=== PATIENT | male | born 1950 | race Caucasian/White ===

== ENCOUNTER 2023-06-16 11:27 | Emergency (ER) | payer BC, SELFPAY ==
--- NOTE | ~2023-06-16 | CT_ITS ---
EXAMINATION: CTA chest PE protocol DATE: 06/16/2023 12:31 CDT INDICATION: Chest and rib pain. TECHNIQUE: Computed tomographic angiography (CTA) of the chest was performed with 100 mL Omnipaque-35 0 intravenous contrast. The dose-length product was 846.45 mGy-cm. Maximum intensity projection 3D-re constructions of the aorta and other arteries were constructed by the technologist on a separate work station. Automated exposure control and iterative reconstruction technique were employed. COMPARISON: None. FINDINGS: Study is technically adequate without evidence for pulmonary embolism. Cardiomegaly. No sig nificant pleural or pericardial effusion. Borderline size mediastinal lymph nodes, likely reactive. T here are liver cysts. There is bilateral renal cysts. There is bilateral lower lobe and lingular airs pace consolidation, consistent with pneumonia. No pneumothorax. There are multiple compression fractures of the thoracic spine, likely chronic. IMPRESSION: 1. Bibasilar airspace consolidation, consistent with pneumonia. Reviewed, dictated and finalized at location A.
--- NOTE | ~2023-06-16 | XR_ITS ---
XR chest 2V 06/16/2023 12:26 Indication: Left-sided chest pain Procedure: 2 view chest Comparison: CT dated 06/16/2023 Findings: There is bilateral lower lobe airspace disease, compatible with pneumonia. Shallow inspirat ion. No significant effusion. No pneumothorax. No acute osseous abnormality. Impression: 1: Bilateral lower lobe airspace disease, consistent with pneumonia. Reviewed, dictated and finalized at location A. Impression: 1: Bilateral lower lobe airspace disease, consistent with pneumonia.
[2023-06-16 11:28] VITALS: BP 105/71; PULSE 84; RESP 18; TEMP 36.8; O2SAT 96
[2023-06-16 11:34] VITALS: O2SAT 94
--- NOTE | 2023-06-16 11:39 | ECG_ITS ---
Measurements Intervals [place] Rate: 93 P: -9 [place]: 137 QRS: 77 QRSD: 96 T: 59 QT: 341 QTc: 424 Interpretive Statements SINUS RHYTHM DELAYED PRECORDIAL R/S TRANSITION BASELINE ARTIFACT- I, II, III, AVR, V4-V6 BORDERLINE ECG NO PREVIOUS ECG AVAILABLE FOR COMPARISON Electronically Signed On 06-16-2023 12:22:44 CDT by Sha Suarez D.O.
[2023-06-16 11:53] LABS: Basophils Absolute Auto 0.1 K/mm3 (0.0-0.1); Basophils Percent Auto 0.7 % (0.2-1.2); Eosinophils Absolute Auto 0.1 K/mm3 (0-0.3); Eosinophils Percent Auto 0.9 % (0-4.4); Hemoglobin 16.8 g/dL (14.0-18.0); Immature Granulocyte Absolute 0.02 K/mm3 (0.00-0.031); Immature Granulocyte Percent A 0.2 % (0-0.5); Lymphocytes Absolute Auto 2.21 K/mm3 (0.9-3.2); Lymphocytes Percent Auto 21.4 % (18.3-44.2); Mean Corpuscular HGB Conc 34.3 g/dl (32-36); Mean Corpuscular Hemoglobin 29.6 pg (26-34); Mean Corpuscular Volume 86.4 fl (80-100); Mean Platelet Volume 10.2 fl (7.4-10.4); Monocytes Absolute Auto 0.9 K/mm3 (0.1-0.6); Monocytes Percent Auto 8.8 % (2.6-8.5); Platelet Count Result 253 k/mm3 (150-375); Red Blood Count 5.67 M/mm3 (4.6-6.20); Red Cell Distribution Width 11.9 % (11.5-14.5); White Blood Count 10.3 K/mm3 (4.5-10.0)
--- NOTE | 2023-06-16 11:53 | ED.CHESTPAIN ---
HPI - Chest Pain General Chief Complaint: Chest Pain Stated Complaint: chest pain Time Seen by Provider: 06/16/23 11:29 History of Present Illness HPI narrative: 73-year-old male with history of diabetes, COPD, CVA presents to the emergency department for left-sided anterior lateral chest pain and shortness of breath That started yesterday. Patient notes that he follow-up of a step stool 5 days ago and landed on his left side. He was evaluated at [place] emergency department, had x-rays of his left wrist performed and was diagnosed with a wrist fracture. He was placed in a splint. He denied other injury or pain at that time. States the following day he began developing pain in his left chest that has progressively worsened. Now it is associated with dyspnea, worse with palpation and deep inspiration. He noted that he had some bruising to the chest wall after the fall. He denies radiating symptoms, cough or congestion, fever, lower extremity edema. patient received nitro and aspirin in the EMS EN route. He was started on O2 for hypoxia, however he is satting 90-97% on room air in no respiratory distress upon arrival. Patient is also reporting an area of the OCL splint that is poking into his elbow and is requesting we replaced the OCL. Related Data Home Medications Medication Instructions Recorded Confirmed Valrpoic Acid 1,500 mg PO DAILY 03/13/23 aspirin 81 mg tablet,delayed 81 mg PO DAILY 03/13/23 release atorvastatin 80 mg tablet 80 mg PO DAILY 03/13/23 carbamazepine 300 mg 1,200 mg PO DAILY 03/13/23 capsule,extended release [id number] icosapent ethyl 1 gram capsule 2 g PO BID 03/13/23 (Vascepa) loratadine 10 mg tablet 10 mg PO DAILY 03/13/23 metformin 500 mg tablet 500 mg PO DAILY 03/13/23 dmypidkz-cjcslgtl-nuhuc acid 400 tablet PO 03/13/23 mcg-vit K 20 mcg-lycop 300 mcg tablet sertraline 50 mg tablet 50 mg PO DAILY 03/13/23 Allergies Allergy/AdvReac Type Severity Reaction Status Date / Time No Known Allergies Allergy Unverified 03/13/23 10:25 Review of Systems Review of Systems: CONSTITUTIONAL: Denies fever, chills, or sweats. EYES: Denies visual changes, redness, or discharge. ENT: Denies rhinorrhea, congestion, sore throat, or otalgia. CARDIOVASCULAR: See HPI RESPIRATORY: see HPI GASTROINTESTINAL: Denies abdominal pain, nausea, vomiting, or diarrhea. GENITOURINARY: Denies dysuria or hematuria. SKIN: Denies rash or itching. MUSCULOSKELETAL: Denies back pain, joint pain, or myalgia. NEUROLOGIC: Denies headache, numbness, or weakness. PSYCHIATRIC: Denies anxiety or depression. [facility] Past Medical History Medical History Arthritis COPD (chronic obstructive pulmonary disease) Diabetes Migraine Seizures Stroke Surgical History Surgical History History of hernia repair Status post surgical removal of malignant neoplasm of skin Family History Family History Father Cancer Alcoholism Mother Diabetes mellitus Sibling Alcoholism Cancer Diabetes mellitus Social History Social History Social History: Caffeine- coffee Smoking status: Former smoker Smoking end date: 03/25/16 Alcohol intake: never Substance use: never Substance use type: does not use Lack of Transportation: No Lack of Food: Never True Current Housing: I Have Housing Concerned About Future Housing: No Difficulty Paying Gas/Electric Bills: No Difficulty Paying for Meds: No Currently Unemployed: No Education: High School Diploma/GED Difficulty w/ Childcare or Family Care: No Living arrangements: alone Occupation/Education: retired Gender identity (if verbalized by the patient): Male Agree to blood products: Yes Exam Narrat
[2023-06-16 12:04] LABS: Prothrombin Time 13.6 Seconds (11.1-14.7)
[2023-06-16 12:05] LABS: Partial Thromboplastin Time 36.4 Seconds (22.3-36.8)
[2023-06-16 12:06] LABS: Alanine Aminotransferase 21 U/L (6-50); Albumin Level 4.3 g/dL (3.5-5.1); Alkaline Phosphatase 100 U/L (38-126); Anion Gap 8 mmol/L (8-16); Aspartate Amino Transferase 24 U/L (17-59); Bilirubin,Total 1.1 mg/dL (0.2-1.3); Blood Urea Nitrogen 16 mg/dL (9-20); Calcium 9.3 mg/dL (8.4-10.2); Carbon Dioxide 27 mmol/L (22-30); Chloride 102 mmol/L (98-107); Estimated CRCL calculation 70 ml/min; Estimated Glomerular Filt Rate > 60; Glucose 124 mg/dL (65-110); Lipase 97 U/L (23-300); Potassium 3.8 mmol/L (3.4-5.0); Sodium 137 mmol/L (137-145)
[2023-06-16 12:18] LABS: NT Pro B Type Natriuretic Pept 201 pg/mL (19.9-100); Troponin I < 0.012 ng/mL (0.000-0.034)
[2023-06-16 12:40] VITALS: BP 148/95; PULSE 86; RESP 16; O2SAT 95
[2023-06-16 13:27] LABS: Influenza A QL RT-PCR Negative (Negative); Influenza B QL RT-PCR Negative (Negative); RSV RNA, RT-PCR Negative (Negative); SARS-CoV-2 RNA PCR Negative (Negative)
--- NOTE | 2023-06-16 14:49 | ECG_ITS ---
Measurements Intervals [place] Rate: 89 P: -17 [place]: 146 QRS: 81 QRSD: 88 T: 70 QT: 344 QTc: 420 Interpretive Statements SINUS RHYTHM DELAYED PRECORDIAL R/S TRANSITION BASELINE ARTIFACT- I, II, III, AVR, AVL, AVF BORDERLINE ECG COMPARED TO ECG 06/16/2023 11:42:21 NO SIGNIFICANT CHANGES Electronically Signed On 06-16-2023 16:50:05 CDT by Sha Suarez D.O.
[2023-06-16 14:57] LABS: Appearance Urine Clear (Clear); Color Urine Yellow (Yellow)
[2023-06-16 14:58] LABS: Bacteria Urine None Seen /hpf; Bilirubin Urine 1+ (Negative); Blood Urine Negative (Negative); Glucose Urine UA Negative (Negative); Ketones Urine 1+ mg/dL (Negative); Leukocyte Esterase Ur Negative LEU/UL (Negative); Nitrate Urine Negative (Negative); Non Pathogenic Casts 0-2; Protein Urine 1+ mg/dL (Negative); Squamous Epithelial Cell Urine None Seen /hpf (Few); WBC Urine 0-5 /hpf (0-3)
[2023-06-16 14:59] LABS: Add Urine Microscopic? YES
[2023-06-16 15:25] LABS: Troponin I < 0.012 ng/mL (0.000-0.034)
[2023-06-16] MEDS: AMOXICILLIN/CLAVULANATE K 875-125 MG TAB 1 TABLET PO (16:06)
[2023-06-16] MEDS: AZITHROMYCIN 250 MG TABLET 500 MG PO (16:06)
[2023-06-16 16:09] VITALS: BP 136/89; PULSE 84; RESP 18; O2SAT 96
== END 2023-06-16 16:10 | disposition home or self-care (01) ==
PROVIDERS: Emergency Medicine; Emergency Provider Physician Assistant; PCP Internal Medicine
DX: J18.9 Pneumonia, unspecified organism (principal); R31.21 Asymptomatic microscopic hematuria; R07.89 Other chest pain; S62.102D Fracture of unspecified carpal bone, left wrist, subsequent encounter for fracture with routine healing; X58.XXXD Exposure to other specified factors, subsequent encounter; Z20.822 Contact with and (suspected) exposure to COVID-19; J44.9 Chronic obstructive pulmonary disease, unspecified; E11.9 Type 2 diabetes mellitus without complications; M19.90 Unspecified osteoarthritis, unspecified site; Z86.73 Personal history of transient ischemic attack (TIA), and cerebral infarction without residual deficits; Z87.891 Personal history of nicotine dependence; Z79.84 Long term (current) use of oral hypoglycemic drugs; Z79.82 Long term (current) use of aspirin; R94.31 Abnormal electrocardiogram [ECG] [EKG]
CPT/HCPCS: 29125; 36415; 71046; 71275; 80053; 81001; 83690; 83880; 84484; 85025; 85610; 85730; 87637; 93005; 99284; A9270; Q9967

== ENCOUNTER 2023-08-15 13:50 | Outpatient (CLI) | payer BC, SELFPAY ==
[2023-08-15 14:05] LABS: Basophils Absolute Auto 0.1 K/mm3 (0.0-0.1); Basophils Percent Auto 0.9 % (0.2-1.2); Eosinophils Absolute Auto 0.2 K/mm3 (0-0.3); Eosinophils Percent Auto 2.3 % (0-4.4); Hematocrit 46.8 % (42.0-52.0); Hemoglobin 15.7 g/dL (14.0-18.0); Immature Granulocyte Absolute 0.01 K/mm3 (0.00-0.031); Immature Granulocyte Percent A 0.1 % (0-0.5); Lymphocytes Absolute Auto 2.24 K/mm3 (0.9-3.2); Lymphocytes Percent Auto 32.4 % (18.3-44.2); Mean Corpuscular HGB Conc 33.5 g/dl (32-36); Mean Corpuscular Hemoglobin 29.1 pg (26-34); Mean Corpuscular Volume 86.7 fl (80-100); Monocytes Absolute Auto 0.7 K/mm3 (0.1-0.6); Monocytes Percent Auto 9.4 % (2.6-8.5); Neutrophils Absolute Auto 3.8 K/mm3 (1.3-6.7); Neutrophils Percent Auto 54.9 % (45.5-73.1); Platelet Count Result 245 k/mm3 (150-375); Red Cell Distribution Width 11.9 % (11.5-14.5); White Blood Count 6.9 K/mm3 (4.5-10.0)
[2023-08-15 17:43] LABS: Alanine Aminotransferase 22 U/L (6-50); Albumin Level 4.2 g/dL (3.5-5.1); Alkaline Phosphatase 126 U/L (38-126); Anion Gap 7 mmol/L (4-12); Aspartate Amino Transferase 22 U/L (17-59); Bilirubin,Total 0.8 mg/dL (0.2-1.3); Blood Urea Nitrogen 12 mg/dL (9-20); Carbon Dioxide 27 mmol/L (22-30); Chloride 106 mmol/L (98-107); Estimated Glomerular Filt Rate > 60; Glucose 87 mg/dL (65-110); Potassium 3.8 mmol/L (3.4-5.0); Sodium 140 mmol/L (137-145)
[2023-08-20 07:48] LABS: Erythropoietin (EPO) 15.3 mIU/mL (2.6-18.5)
== END 2023-08-15 13:51 | disposition home or self-care (01) ==
LOC: ANHLAB 13:53
PROVIDERS: Nurse Practitioner Family; PCP Internal Medicine; Visit Provider Internal Medicine Hematology & Oncology
DX: D75.1 Secondary polycythemia (principal)
CPT/HCPCS: 36415; 80053; 82668; 85025

== ENCOUNTER 2024-03-15 13:44 | Observation (INO) | payer BC, SELFPAY ==
[2024-03-15 13:49] VITALS: BP 118/59; PULSE 131; RESP 24; TEMP 37.4; O2SAT 94
[2024-03-15] MEDS: SODIUM CHLORIDE 0.9% IV 1,000 ML 999 ML IV CONT (15:40)
[2024-03-15 15:50] LABS: Basophils Absolute Auto 0.1 K/mm3 (0.0-0.1); Basophils Percent Auto 0.3 % (0.2-1.2); Eosinophils Percent Auto 0.1 % (0-4.4); Hematocrit 43.5 % (42.0-52.0); Immature Granulocyte Percent A 0.5 % (0-0.5); Lymphocytes Absolute Auto 0.84 K/mm3 (0.9-3.2); Lymphocytes Percent Auto 4.3 % (18.3-44.2); Mean Corpuscular HGB Conc 34.5 g/dl (32-36); Mean Corpuscular Hemoglobin 30.5 pg (26-34); Mean Corpuscular Volume 88.6 fl (80-100); Mean Platelet Volume 10.3 fl (7.4-10.4); Monocytes Percent Auto 10.3 % (2.6-8.5); Neutrophils Absolute Auto 16.4 K/mm3 (1.3-6.7); Neutrophils Percent Auto 84.5 % (45.5-73.1); Platelet Count Result 194 k/mm3 (150-375); Red Blood Count 4.91 M/mm3 (4.6-6.20); Red Cell Distribution Width 12.6 % (11.5-14.5); White Blood Count 19.4 K/mm3 (4.5-10.0)
[2024-03-15 16:02] LABS: Alanine Aminotransferase 19 U/L (6-50); Albumin Level 3.9 g/dL (3.5-5.1); Alkaline Phosphatase 102 U/L (38-126); Anion Gap 6 mmol/L (4-12); Aspartate Amino Transferase 21 U/L (17-59); Bilirubin,Total 2.1 mg/dL (0.2-1.3); Blood Urea Nitrogen 22 mg/dL (9-20); Calcium 9.5 mg/dL (8.4-10.2); Carbon Dioxide 26 mmol/L (22-30); Chloride 107 mmol/L (98-107); Estimated CRCL calculation 58 ml/min; Estimated Glomerular Filt Rate 60; Glucose 110 mg/dL (65-110); Potassium 3.7 mmol/L (3.4-5.0); Sodium 139 mmol/L (137-145)
[2024-03-15 16:26] LABS: Valproic Acid < 10.0 ug/mL (50-120)
[2024-03-15 16:49] LABS: Add Urine Microscopic? YES; Appearance Urine Clear (Clear); Bacteria Urine None Seen /hpf; Blood Urine 2+ (Negative); Glucose Urine UA Negative (Negative); Ketones Urine Negative (Negative); Mucus Urine Present /lpf; Need Manual Microscopic Reviewed; Non Pathogenic Casts 0-2; RBC Urine 51-100 /hpf (0-2); Specific Grav Ur 1.024 (1.001-1.035); Squamous Epithelial Cell Urine None Seen /hpf (Few); WBC Urine 21-50 /hpf (0-3)
[2024-03-15 16:53] LABS: Color Urine Orange (Yellow)
[2024-03-15 16:56] VITALS: BP 152/85; PULSE 91; RESP 14; TEMP 36.4; O2SAT 97
[2024-03-15 17:00] VITALS: BP 134/80; PULSE 92; RESP 18; O2SAT 95
[2024-03-15 17:15] VITALS: BP 133/79; PULSE 93; RESP 18; O2SAT 99
--- NOTE | 2024-03-15 17:38 | ED_ITS ---
HPI - Male Genitourinary General Chief complaint: Urogenital-Male Stated complaint: Having issues urinating, prostate biopsy on 11th Time Seen by Provider: 03/15/24 15:07 History of Present Illness HPI Narrative: Patient is a 74-year-old male who presents ER with difficulty urinating. Prostate biopsy on 03/04 for possible prostate cancer. No results back. Was seen at [facility] in the ER this week and diagnosed with UTI. Started on cefdinir and azo. Urine is orange. Began having increased pain and discomfort with urination today. Has lower abdominal pain. No reports of fever. Temperature elevated at triage. Related Data Home Medications ?Medication ?Instructions ?Recorded ?Confirmed ?Last Taken ?Type Valrpoic Acid 1,500 mg PO DAILY 03/13/23 Unknown History aspirin 81 mg tablet,delayed 81 mg PO DAILY 03/13/23 Unknown History release atorvastatin 80 mg tablet 80 mg PO DAILY 03/13/23 Unknown History carbamazepine 300 mg 1,200 mg PO DAILY 03/13/23 Unknown History capsule,extended release [id number] icosapent ethyl 1 gram capsule 2 g PO BID 03/13/23 Unknown History (Vascepa) loratadine 10 mg tablet 10 mg PO DAILY 03/13/23 Unknown History metformin 500 mg tablet 500 mg PO DAILY 03/13/23 Unknown History wobxphti-mcilzshc-sebsw acid 400 tablet PO 03/13/23 Unknown History mcg-vit K 20 mcg-lycop 300 mcg tablet sertraline 50 mg tablet 50 mg PO DAILY 03/13/23 Unknown History Allergies Allergy/AdvReac Type Severity Reaction Status Date / Time No Known Allergies Allergy Unverified 03/13/23 10:25 Review of Systems 2 Review of Systems: All systems reviewed & are unremarkable except as noted in HPI and below Constitutional: Constitutional: Reports no additional constitutional complaints Cardiovascular: Cardiovascular: Reports no additional cardiovascular complaints Respiratory: Respiratory: Reports no additional respiratory complaints Genitourinary: Genitourinary: Reports no additional male genitourinary complaints [facility] Past Medical History Medical History Arthritis COPD (chronic obstructive pulmonary disease) Diabetes Migraine Seizures Stroke Surgical History Surgical History History of hernia repair Status post surgical removal of malignant neoplasm of skin Family History Family History Father Cancer Alcoholism Mother Diabetes mellitus Sibling Alcoholism Cancer Diabetes mellitus Social History Social History Social History: Caffeine- coffee Smoking status: Former smoker Smoking end date: 03/25/16 Alcohol intake: never Substance use: never Substance use type: does not use Lack of Transportation: No Lack of Food: Never True Current Housing: I Have Housing Concerned About Future Housing: No Difficulty Paying Gas/Electric Bills: No Difficulty Paying for Meds: No Currently Unemployed: No Education: High School Diploma/GED Difficulty w/ Childcare or Family Care: No Living arrangements: alone Occupation/Education: retired Gender identity (if verbalized by the patient): Male Agree to blood products: Yes Exam 2 Narrative: GENERAL: Well-appearing, well-nourished, and in no acute distress. HEAD: Normocephalic, atraumatic. ENT: Mucous membranes moist. CHEST: Clear to auscultation. No respiratory distress. HEART: Regular rate and rhythm. Normal peripheral pulses. ABDOMEN: Soft, Mild suprapubic tenderness, nondistended, normal active bowel sounds. EXTREMITIES: Normal range of motion. No edema. SKIN: Warm, dry, no rash. NEURO: Alert and oriented x3. PSYCH: Normal mood and affect. Course Course Emergency Course: patient with urinary retention. Lora placed. White count elevated. Will start on ceftriaxone admit for observation. Vital Signs Vital signs: Vital Signs Temperature 99.3 F 03/15/24 13:49 Pulse Rate 131 H 03/15/24 13:49 Respiratory Rate 24 H 03/15/24 13:49 Blood Pressure 118/59 L 03/15/24 13:49 Pulse Oximetry 94 03/15/24 13:49 Temperature 97.6 F 03/15/24 16:56 Pulse Rate 93 03/15/24 17:15 Respiratory Rate 18 03/15/24 17:15 Blood Pressure 133/79 03/15/24 17:15 Pulse Oximetry 99 03/15/24 17:15 MDM - Male Genitourinary Lab Data 03/15/24 15:44 03/15/24 15:45 Labs: Lab Results 03/15/24 03/15/24 03/15/24 Range/Units 15:44 15:45 16:18 WBC 19.4 H (4.5-10.0) K/mm3 RBC 4.91 (4.6-6.20) M/mm3 Hgb 15.0 (14.0-18.0) g/dL Hct 43.5 (42.0-52.0) % MCV 88.6 (80-100) fl MCH 30.5 (26-34) pg MCHC 34.5 (32-36) g/dl RDW 12.6 (11.5-14.5) % Plt Count 194 (150-375) k/mm3 MPV 10.3 (7.4-10.4) fl Immature Gran % (Auto) 0.5 (0-0.5) % Neut % (Auto) 84.5 H (45.5-73.1) % Lymph % (Auto) 4.3 L (18.3-44.2) % [place] % (Auto) 10.3 H (2.6-8.5) % Eos % (Auto) 0.1 (0-4.4) % Baso % (Auto) 0.3 (0.2-1.2) % Lymph # (Auto) 0.84 L (0.9-3.2) K/mm3 [place] # (Auto) 2.0 H (0.1-0.6) K/mm3 Eos # (Auto) 0.0 (0-0.3) K/mm3 Baso # (Auto) 0.1 (0.0-0.1) K/mm3 Abs Immat Gran (auto) 0.10 H (0.00-0.031) K/mm3 Absolute Neuts (auto) 16.4 H (1.3-6.7) K/mm3 Absolute Nucleated RBC 0.000 (0.0-0.012) K/mm3 Nucleated RBC % 0.0 (0.0-0.2) % Sodium 139 (137-145) mmol/L Potassium 3.7 (3.4-5.0) mmol/L Chloride 107 (98-107) mmol/L Carbon Dioxide 26 (22-30) mmol/L Anion Gap 6 (4-12) mmol/L BUN 22 H D (9-20) mg/dL Creatinine 1.20 (0.7-1.3) mg/dL Estim Creat Clear Calc 58 ml/min Estimated GFR 60 (59 - ) Glucose 110 (65-110) mg/dL Lactic Acid 1.0 (0.7-2.0) mmol/L Calcium 9.5 (8.4-10.2) mg/dL Total Bilirubin 2.1 H (0.2-1.3) mg/dL AST 21 (17-59) U/L ALT 19 (6-50) U/L Alkaline Phosphatase 102 (38-126) U/L Total Protein 8.0 (6.3-8.2) g/dL Albumin 3.9 (3.5-5.1) g/dL Urine Color [place] H (Yellow) Urine Appearance Clear (Clear) Urine pH 5.0 (5.0-9.0) Ur Specific [place] 1.024 (1.001-1.035) Urine Protein TNP Urine Glucose (UA) Negative (Negative) mg/dL Urine Ketones Negative (Negative) mg/dL Ur Blood (Man) 2+ H (Negative) Urine Nitrate TNP Urine Bilirubin TNP Urine Urobilinogen 1.0 (<2.0) mg/dL Add Ur Microanalysis Reviewed Leukocyte Esterase Rfl TNP Urine RBC 51-100 H (0-2) /hpf Urine WBC 21-50 H (0-3) /hpf Ur Squamous Epith Cells None seen (Few) /hpf Urine Bacteria None seen /hpf Urine Casts 0-2 Urine Mucus Present /lpf Valproic Acid < 10.0 L (50-120) ug/mL Discharge Plan Discharge Clinical Impression: Acute urinary retention, Acute UTI Patient Disposition: Still a Patient Condition: Stable
[2024-03-15] MEDS: SODIUM CHLORIDE 0.9% IV 1,000 ML 125 ML IV CONT (18:18)
--- NOTE | 2024-03-15 19:29 | PM.IMHP ---
H&P: HPI History of Present Illness Date/Time: 03/15/24 19:29 Chief Complaint: Urinary frequency Narrative: This is a 74-year-old male with past medical history significant for benign prostatic hyperplasia, seizure disorder, hypertension, COPD, migraine headaches, stroke. Patient presented to emergency room due to urinary frequency, urinary retention, patient is status post prostate biopsy. Preliminary workup in the emergency room was significant for urinalysis with numerous WBCs present numerous RBCs present. Patient had Lora placed in the emergency room for urinary retention. Patient has been admitted for further evaluation management and treatment. Review of Systems Review of Systems: Urinary frequency, urinary retention, chills. [facility] Past Medical History Medical History Arthritis COPD (chronic obstructive pulmonary disease) Diabetes Migraine Seizures Stroke Surgical History Surgical History History of hernia repair Status post surgical removal of malignant neoplasm of skin Family History Family History Father Cancer Alcoholism Mother Diabetes mellitus Sibling Alcoholism Cancer Diabetes mellitus Social History Social History Social History: Caffeine- coffee Smoking status: Never smoker Smoking end date: 03/25/16 Alcohol intake: never Substance use: never Substance use type: does not use Do You Feel Safe in your Home?: Yes Lack of Transportation: No Lack of Food: Never True Current Housing: I Have Housing Concerned About Future Housing: No Difficulty Paying Gas/Electric Bills: No Difficulty Paying for Meds: No Currently Unemployed: No Education: High School Diploma/GED Difficulty w/ Childcare or Family Care: No Living arrangements: alone Occupation/Education: retired Gender identity (if verbalized by the patient): Male Spiritual care concerns: No Agree to blood products: Yes Meds Home Medications and Allergies Home Medications ?Medication ?Instructions ?Recorded ?Confirmed ?Type aspirin 81 mg tablet,delayed 81 mg PO DAILY 03/13/23 03/15/24 History release loratadine 10 mg tablet 10 mg PO DAILY 03/13/23 03/15/24 History cuecveqi-pbvnwepd-rfxkx acid 400 1 tablet PO DAILY 03/13/23 03/15/24 History mcg-vit K 20 mcg-lycop 300 mcg tablet sertraline 50 mg tablet 50 mg PO DAILY 03/13/23 03/15/24 History atorvastatin 40 mg tablet 40 mg PO DAILY 03/15/24 03/15/24 History cefdinir 300 mg capsule 300 mg PO DAILY 03/15/24 03/15/24 History losartan 50 mg tablet 50 mg PO DAILY 03/15/24 03/15/24 History Allergies Allergy/AdvReac Type Severity Reaction Status Date / Time No Known Allergies Allergy Unverified 03/13/23 10:25 Vital Signs Vital Signs - 24 hr 03/15/24 13:49 03/15/24 16:56 03/15/24 17:00 Temperature 99.3 F 97.6 F Pulse Rate 131 H 91 92 Respiratory Rate 24 H 14 18 Blood Pressure 118/59 L 152/85 H 134/80 Pulse Oximetry 94 97 95 03/15/24 17:15 Temperature Pulse Rate 93 Respiratory Rate 18 Blood Pressure 133/79 Pulse Oximetry 99 Exam Narrative: Patient is laying in bed Const: General: comfortable, no acute distress, well developed, alert, awake and average body habitus Nutritional Appearance: average body habitus Orientation/consciousness: patient oriented x3 Other: Lora in with pink color urine HENMT: Head: normal to inspection, normocephalic and atraumatic Ears: hearing grossly normal bilaterally Face/Nose/Sinus: normal facial exam Face and sinus: normal facial exam Eyes: General: appearance normal, both eyes and all related structures Pupils: Equal, round and reactive pupils present EOM: EOMs intact bilaterally Neck: Neck: full ROM, no lymphadenopathy and no JVD Thyroid: thyroid normal Lymphatic: no lymphadenopathy noted Resp: Effort & Inspection: normal respiratory effort and able to speak in complete sentences Auscultation: clear to auscultation bilaterally Cardio: Jugular venous distension: no JVD Rate: regular rate Rhythm: regular rhythm Heart sounds: S1 normal heart sound present and S2 normal heart sound present GI: Inspection: obesity GI Palp: Yes Soft to palpation and Yes No hepatosplenomegaly present : General: Yes deferred Skin: Rashes: no rashes Wounds: no wounds Neuro: General: patient oriented x3 and CN's II-XI intact bilaterally Cranial nerves: Yes CN's II-XII intact bilaterally and Yes Equal, round and reactive pupils present Cognition (Neuro): normal cognition Speech: normal speech Gait exam (Neuro): Unable to assess gait Motor exam (neuro): 5/5 motor strength present throughout Extrem: General: normal to inspection, full ROM, no joint enlargement and no pedal edema H&P: Results Labs Labs: Short CBC 03/15/24 Range/Units 15:44 WBC 19.4 H (4.5-10.0) K/mm3 Hgb 15.0 (14.0-18.0) g/dL Hct 43.5 (42.0-52.0) % Plt Count 194 (150-375) k/mm3 BMP 03/15/24 15:45 Sodium 139 Potassium 3.7 Chloride 107 Carbon Dioxide 26 BUN 22 H D Creatinine 1.20 Glucose 110 Calcium 9.5 Liver Function 03/15/24 Range/Units 15:45 Total Bilirubin 2.1 H (0.2-1.3) mg/dL AST 21 (17-59) U/L ALT 19 (6-50) U/L Alkaline Phosphatase 102 (38-126) U/L Albumin 3.9 (3.5-5.1) g/dL Urine 03/15/24 Range/Units 16:18 Urine Color [place] H (Yellow) Urine Appearance Clear (Clear) Urine pH 5.0 (5.0-9.0) Ur Specific [place] 1.024 (1.001-1.035) Urine Protein TNP Urine Glucose (UA) Negative (Negative) mg/dL Assessment and Plan Assessment and plan (1) Acute UTI: Code(s): N39.0 - Urinary tract infection, site not specified Status: Acute Assessment and Plan: Admit to regular medical floor Patient started on Rocephin Await cultures (2) Acute urinary retention: Code(s): R33.8 - Other retention of urine Status: Acute Assessment and Plan: Status post Lora catheter placement (3) COPD (chronic obstructive pulmonary disease): Code(s): J44.9 - Chronic obstructive pulmonary disease, unspecified Status: Acute Assessment and Plan: Stable Hospitalist [facility] Advance Care Plan I have confirmed that the patient's Advanced Care Plan is present, code status is documented, or surrogate decision maker is listed in patient medical record.: Yes Medication Reconciliation I have utilized all available resources to obtain, update and review the patients current medications (includes all prescriptions, OTC, herbals, cannabis, and nutritional supplements).: Yes
[2024-03-15 19:48] VITALS: BMI 30.7
--- NOTE | 2024-03-15 19:52 | ADMGEN ---
This patient, Humza Recio, was admitted to Medical Room 340-01. Patient/family oriented to hospital policies and general routines including ID bracelet, bed and alarms, visiting hours, pain management, procedures, bathroom and other care routines, personal items, smoking policy, room service/diet, and visiting hours. Information on how to activate the Rapid Response Team has been discussed. Patient/Family are encouraged to report perceived risks to care and to ask questions if they do not understand what they are told or what they should do.
[2024-03-15 20:34] VITALS: BP 141/83; PULSE 87; RESP 18; TEMP 36.9; O2SAT 97
[2024-03-16] MEDS: SODIUM CHLORIDE 0.9% IV 1,000 ML 125 ML IV CONT ×3 (03:29→21:25)
[2024-03-16] MEDS: ACETAMINOPHEN 325 MG TABLET 650 MG PO (03:30)
[2024-03-16 06:00] VITALS: BP 172/75; PULSE 90; RESP 20; TEMP 37.3; O2SAT 93
[2024-03-16] MEDS: SERTRALINE HCL 50 MG TABLET PO (12:29)
[2024-03-16] MEDS: LORATADINE 10 MG TABLET PO (12:29)
[2024-03-16] MEDS: ASPIRIN 81 MG ENTERIC TABLET PO (12:29)
[2024-03-16] MEDS: ATORVASTATIN 40 MG TABLET PO (12:29)
[2024-03-16] MEDS: LOSARTAN POTASSIUM 50 MG TABLET PO (12:29)
[2024-03-16] MEDS: THERAPEUTIC MULTIVITAMINS/MINERALS TAB (*BKC) 1 TABLET PO (12:29)
--- NOTE | 2024-03-16 12:39 | WPDURCON ---
Assessment and Plan Assessment and plan (1) Acute urinary retention: Code(s): R33.8 - Other retention of urine Status: Acute Assessment and Plan: Lora catheter placed., initiate BPH medication, Flomax. Leave Lora catheter for least 5-7 days. If still in-house can have a voiding trial in house. Otherwise can follow-up with his primary urologist for voiding trial and Lora catheter removal (2) Abnormal urinalysis: Code(s): R82.90 - Unspecified abnormal findings in urine Status: Acute Assessment and Plan: Urine culture has been sent. Treat with appropriate antibiotics if returns normal (3) Elevated PSA: Code(s): R97.20 - Elevated prostate specific antigen [PSA] Status: Acute Assessment and Plan: Value unknown. He has an established urologist Urology Consult Note HPI Date Seen: 03/16/24 Requesting Physician: Lisa Shrestha APRN Primary Care Provider: Annabelle Donald, Consult Narrative Narrative: Humza Recio is a 74 year old male with request of the hospitalist here at [facility]. He has a history of elevated PSA. He has a urologist name Nate Lo. He sees his provider in [place]. He has a history of elevated PSA and had a recent prostate biopsy on March 04. He does not know how high his PSA was. He does not know yet the results of his prostate biopsy. He presented to the hospital with urgency and frequency. He was found to have elevated residual urine and possible urinary retention. Lora catheter was placed. Residual urine is a known to myself. He was admitted due to elevated white count. Urinalysis has red blood cells, white blood cells, mucus. No bacteria was seen under microscopy. The Lora catheter is in place and draining. He was not previously on BPH medications. He notes he has had a slow stream for some time now. Perhaps several years Review of Systems Review of Systems: All systems reviewed & are unremarkable except as noted in HPI and below PMFSH Past Medical History Medical History Stroke Seizures Migraine Diabetes COPD (chronic obstructive pulmonary disease) Arthritis Surgical History Surgical History History of hernia repair Status post surgical removal of malignant neoplasm of skin Family History Family History Father Cancer Alcoholism Mother Diabetes mellitus Sibling Alcoholism Cancer Diabetes mellitus Social History Social History Social History: Caffeine- coffee Smoking status: Never smoker Smoking end date: 03/25/16 Alcohol intake: never Substance use: never Substance use type: does not use Do You Feel Safe in your Home?: Yes Lack of Transportation: No Lack of Food: Never True Current Housing: I Have Housing Concerned About Future Housing: No Difficulty Paying Gas/Electric Bills: No Difficulty Paying for Meds: No Currently Unemployed: No Education: High School Diploma/GED Difficulty w/ Childcare or Family Care: No Living arrangements: alone Occupation/Education: retired Gender identity (if verbalized by the patient): Male Spiritual care concerns: No Agree to blood products: Yes Meds Home Medications and Allergies Home Medications ?Medication ?Instructions ?Recorded ?Confirmed ?Type aspirin 81 mg tablet,delayed 81 mg PO DAILY 03/13/23 03/15/24 History release loratadine 10 mg tablet 10 mg PO DAILY 03/13/23 03/15/24 History sjwoakjz-sdjdivsh-wztpd acid 400 1 tablet PO DAILY 03/13/23 03/15/24 History mcg-vit K 20 mcg-lycop 300 mcg tablet sertraline 50 mg tablet 50 mg PO DAILY 03/13/23 03/15/24 History atorvastatin 40 mg tablet 40 mg PO DAILY 03/15/24 03/15/24 History cefdinir 300 mg capsule 300 mg PO DAILY 03/15/24 03/15/24 History losartan 50 mg tablet 50 mg PO DAILY 03/15/24 03/15/24 History Allergies Allergy/AdvReac Type Severity Reaction Status Date / Time No Known Allergies Allergy Unverified 03/13/23 10:25 Vital Signs Vital Signs - 24 hr 03/15/24 13:49 03/15/24 16:56 03/15/24 17:00 Temperature 99.3 F 97.6 F Pulse Rate 131 H 91 92 Respiratory Rate 24 H 14 18 Blood Pressure 118/59 L 152/85 H 134/80 Pulse Oximetry 94 97 95 Oxygen Delivery 03/15/24 17:15 03/15/24 20:00 03/15/24 20:34 Temperature 98.4 F Pulse Rate 93 87 Respiratory Rate 18 18 Blood Pressure 133/79 141/83 H Pulse Oximetry 99 97 Oxygen Delivery Room Air 03/16/24 06:00 03/16/24 08:00 Temperature 99.1 F Pulse Rate 90 Respiratory Rate 20 Blood Pressure 172/75 H Pulse Oximetry 93 Oxygen Delivery Room Air Exam Const: General: cooperative, healthy appearing, comfortable, well developed, alert, awake and Physically active; No acute distress Orientation/consciousness: oriented to person Limitations: no limitations HENMT: Head: normal to inspection Eyes: General: appearance normal, both eyes and all related structures Neck: Neck: normal visual inspection and full ROM Resp: Effort & Inspection: normal respiratory effort GI: Inspection: normal to inspection Urinary Catheter: Urinary Catheter: patent and draining and urine clear Skin: General skin exam: normal color Neuro: General: patient oriented x3 and moves all extremities Other: No neurologic defect Extrem: General: normal to inspection Psych: Appearance: grossly normal and well kempt Results Labs 03/15/24 15:44 03/15/24 15:45 Labs: Short CBC 03/15/24 Range/Units 15:44 WBC 19.4 H (4.5-10.0) K/mm3 Hgb 15.0 (14.0-18.0) g/dL Hct 43.5 (42.0-52.0) % Plt Count 194 (150-375) k/mm3 BMP 03/15/24 15:45 Sodium 139 Potassium 3.7 Chloride 107 Carbon Dioxide 26 BUN 22 H D Creatinine 1.20 Glucose 110 Calcium 9.5 Liver Function 03/15/24 Range/Units 15:45 Total Bilirubin 2.1 H (0.2-1.3) mg/dL AST 21 (17-59) U/L ALT 19 (6-50) U/L Alkaline Phosphatase 102 (38-126) U/L Albumin 3.9 (3.5-5.1) g/dL Urine 03/15/24 Range/Units 16:18 Urine Color Sampson H (Yellow) Urine Appearance Clear (Clear) Urine pH 5.0 (5.0-9.0) Ur Specific [place] 1.024 (1.001-1.035) Urine Protein TNP Urine Glucose (UA) Negative (Negative) mg/dL
[2024-03-16 14:00] VITALS: BP 137/82; PULSE 80; RESP 19; TEMP 36.7; O2SAT 95
--- NOTE | 2024-03-16 14:59 | P.PNIM_ITS ---
Progress Note: A&P Assessment and Plan (1) Elevated PSA: Code(s): R97.20 - Elevated prostate specific antigen [PSA] Status: Acute (2) Acute UTI: Code(s): N39.0 - Urinary tract infection, site not specified Status: Acute Assessment and Plan: pt started on iv rocephin await uc follow [facility] can dc after uc is available and do voiding trail in follow up clinic apt (3) Acute urinary retention: Code(s): R33.8 - Other retention of urine Status: Acute Assessment and Plan: Status post Long catheter placement pt seen by urology md herrera started try voiding trail in 5-7 days time (4) Stroke: Code(s): I63.9 - Cerebral infarction, unspecified Status: Acute Assessment and Plan: history of cva (5) Seizures: Code(s): R56.9 - Unspecified convulsions Status: Acute Assessment and Plan: history of seizures controlled (6) Migraine: Code(s): G43.909 - Migraine, unspecified, not intractable, without status migrainosus Status: Acute Assessment and Plan: history of migraines no complaints presently (7) Diabetes: Code(s): E11.9 - Type 2 diabetes mellitus without complications Status: Acute Assessment and Plan: accuchecks, ssi (8) COPD (chronic obstructive pulmonary disease): Code(s): J44.9 - Chronic obstructive pulmonary disease, unspecified Status: Acute Assessment and Plan: Stable no respiratory complaints Subjective Date/time seen: 03/16/24 14:59 Interval history: 74-year-old male with past medical history significant for benign prostatic hyperplasia, seizure disorder, hypertension, COPD, migraine headaches, stroke. Patient presented to emergency room due to urinary frequency, urinary retention, patient is status post prostate biopsy. pt admitted with uti and urinary retention Review of Systems Review of Systems: urine looks dark Exam Const: General: cooperative, healthy appearing and overweight; No in distress Nutritional Appearance: overweight Orientation/consciousness: oriented to person HENMT: Head: normal to inspection Resp: Effort & Inspection: no respiratory distress Auscultation: no rhonchi and no wheezes Cardio: Rate: regular rate Rhythm: regular rhythm GI: Inspection: normal to inspection GI Palp: No abdominal tenderness, No Guarding due to palpation present (GI) and No Hepatomegaly present Auscultation: normal bowel sounds Back/Spine/Pelvis: Other: pt has long catheter in situ Neuro: General: oriented to person Objective Data Vital Signs Vital Signs: Vital Signs - 24 hr 03/15/24 16:56 03/15/24 17:00 03/15/24 17:15 Temperature 36.4 C Pulse Rate 91 92 93 Respiratory Rate 14 18 18 Blood Pressure 152/85 H 134/80 133/79 Pulse Oximetry 97 95 99 Oxygen Delivery 03/15/24 20:00 03/15/24 20:34 03/16/24 06:00 Temperature 36.9 C 37.3 C Pulse Rate 87 90 Respiratory Rate 18 20 Blood Pressure 141/83 H 172/75 H Pulse Oximetry 97 93 Oxygen Delivery Room Air 03/16/24 08:00 03/16/24 14:00 Temperature 36.7 C Pulse Rate 80 Respiratory Rate 19 Blood Pressure 137/82 Pulse Oximetry 95 Oxygen Delivery Room Air Intake/Output Intake/Output: Intake & Output 03/13/24 03/14/24 03/15/24 03/16/24 23:59 23:59 23:59 23:59 Intake Total 1050 4000 Output Total 450 500 Balance 600 3500 Meds/Results Medications: Active Medications Generic Name Dose Route Start Last Admin Trade Name Freq PRN Reason Stop Dose Admin Acetaminophen 650 mg 03/15/24 18:04 03/16/24 03:30 Acetaminophen 325 Mg Tablet PO 650 mg Q4H PRN Administration Mild Pain (1-3) or Fever Hydrocodone Bitart/Acetaminophen 1 tab 03/15/24 18:04 Hydrocodone/Acetaminophen (*Crx) 5-325 Mg Tablet PO Q4H PRN Pain Rated 4-6 Aspirin 81 mg 03/16/24 11:55 03/16/24 12:29 Aspirin 81 Mg Enteric Tablet PO 81 mg DAILY AMILCAR Administration Atorvastatin Calcium 40 mg 03/16/24 11:55 03/16/24 12:29 Atorvastatin 40 Mg Tablet PO 40 mg DAILY AMILCAR Administration Sodium Chloride 1,000 mls @ 125 mls/hr 03/15/24 18:05 03/16/24 12:31 Normal Saline Iv IV CONT 125 mls/hr .Q8H AMILCAR Administration Ceftriaxone Sodium 1 gm in 50 mls @ 100 mls/hr 03/16/24 18:00 Rocephin 1 Gm/Ns 50 Ml IVPB Q24H AMILCAR Loratadine 10 mg 03/16/24 11:55 03/16/24 12:29 Loratadine 10 Mg Tablet PO 10 mg DAILY [facility] Administration Losartan Potassium 50 mg 03/16/24 12:00 03/16/24 12:29 Losartan Potassium 50 Mg Tablet PO 50 mg DAILY [facility] Administration Multivitamins/Calcium 1 tablet 03/16/24 12:00 03/16/24 12:29 Therapeutic Multivitamins/Minerals Tab (*Bkc) PO 1 tablet DAILY [facility] Administration Ondansetron HCl 4 mg 03/15/24 18:04 Ondansetron Inj 4 Mg/2 Ml Vial IV PUSH Q4H PRN Nausea Sertraline HCl 50 mg 03/16/24 12:00 03/16/24 12:29 Sertraline Hcl 50 Mg Tablet PO 50 mg DAILY [facility] Administration Tamsulosin HCl 0.4 mg 03/17/24 09:00 Tamsulosin Hcl 0.4 Mg Capsule PO QAM [facility] Labs Labs: Laboratory Results - last 24 hr 03/15/24 03/15/24 03/15/24 15:44 15:45 16:18 WBC 19.4 H RBC 4.91 Hgb 15.0 Hct 43.5 MCV 88.6 MCH 30.5 MCHC 34.5 RDW 12.6 Plt Count 194 MPV 10.3 Immature Gran % (Auto) 0.5 Neut % (Auto) 84.5 H Lymph % (Auto) 4.3 L Williamson % (Auto) 10.3 H Eos % (Auto) 0.1 Baso % (Auto) 0.3 Lymph # (Auto) 0.84 L Williamson # (Auto) 2.0 H Eos # (Auto) 0.0 Baso # (Auto) 0.1 Abs Immat Gran (auto) 0.10 H Absolute Neuts (auto) 16.4 H Absolute Nucleated RBC 0.000 Nucleated RBC % 0.0 Sodium 139 Potassium 3.7 Chloride 107 Carbon Dioxide 26 Anion Gap 6 BUN 22 H D Creatinine 1.20 Estim Creat Clear Calc 58 Estimated GFR 60 Glucose 110 Lactic Acid 1.0 Calcium 9.5 Total Bilirubin 2.1 H AST 21 ALT 19 Alkaline Phosphatase 102 Total Protein 8.0 Albumin 3.9 Urine Color Pershing H Urine Appearance Clear Urine pH 5.0 Ur Specific [place] 1.024 Urine Protein TNP Urine Glucose (UA) Negative Urine Ketones Negative Ur Blood (Man) 2+ H Urine Nitrate TNP Urine Bilirubin TNP Urine Urobilinogen 1.0 Add Ur Microanalysis Reviewed Leukocyte Esterase Rfl TNP Urine RBC 51-100 H Urine WBC 21-50 H Ur Squamous Epith Cells None seen Urine Bacteria None seen Urine Casts 0-2 Urine Mucus Present Valproic Acid < 10.0 L
[2024-03-16 20:54] VITALS: BP 150/82; PULSE 72; RESP 20; TEMP 37.2; O2SAT 95
[2024-03-17] MEDS: SODIUM CHLORIDE 0.9% IV 1,000 ML 125 ML IV CONT (05:18)
[2024-03-17 05:49] LABS: Hematocrit 38.5 % (42.0-52.0); Hemoglobin 13.2 g/dL (14.0-18.0); Mean Corpuscular HGB Conc 34.3 g/dl (32-36); Mean Corpuscular Hemoglobin 30.3 pg (26-34); Mean Corpuscular Volume 88.5 fl (80-100); Mean Platelet Volume 10.5 fl (7.4-10.4); Platelet Count Result 183 k/mm3 (150-375); Red Blood Count 4.35 M/mm3 (4.6-6.20); Red Cell Distribution Width 12.1 % (11.5-14.5); White Blood Count 11.3 K/mm3 (4.5-10.0)
[2024-03-17 06:00] VITALS: BP 161/88; PULSE 84; RESP 20; TEMP 37.3; O2SAT 93
[2024-03-17 06:12] LABS: Anion Gap 0 mmol/L (4-12); Blood Urea Nitrogen 11 mg/dL (9-20); Calcium 8.5 mg/dL (8.4-10.2); Carbon Dioxide 26 mmol/L (22-30); Chloride 112 mmol/L (98-107); Estimated CRCL calculation 85 ml/min; Estimated Glomerular Filt Rate > 60; Glucose 88 mg/dL (65-110); Potassium 3.9 mmol/L (3.4-5.0); Sodium 138 mmol/L (137-145)
[2024-03-17] MEDS: SERTRALINE HCL 50 MG TABLET PO (08:39)
[2024-03-17] MEDS: LORATADINE 10 MG TABLET PO (08:39)
[2024-03-17] MEDS: ASPIRIN 81 MG ENTERIC TABLET PO (08:39)
[2024-03-17] MEDS: TAMSULOSIN HCL 0.4 MG CAPSULE PO (08:39)
[2024-03-17] MEDS: ATORVASTATIN 40 MG TABLET PO (08:39)
[2024-03-17] MEDS: THERAPEUTIC MULTIVITAMINS/MINERALS TAB (*BKC) 1 TABLET PO (08:39)
[2024-03-17] MEDS: LOSARTAN POTASSIUM 50 MG TABLET PO (08:39)
[2024-03-17 14:00] VITALS: BP 162/89; PULSE 85; RESP 19; TEMP 36.3; O2SAT 97
--- NOTE | 2024-03-17 15:31 | PM.DS ---
DS: Admitting Diagnosis Discharge Date 03/17/24 Admitting Diagnosis Urinary frequency DS: Discharge Diagnosis Discharge Diagnosis (1) Acute urinary retention: Code(s): R33.8 - Other retention of urine Status: Acute DS: Summary Hospital Course Hospital Course: This is a 74-year-old male with past medical history significant for benign prostatic hyperplasia, seizure disorder, hypertension, COPD, migraine headaches, stroke. Patient presented to emergency room due to urinary frequency, urinary retention, patient is status post prostate biopsy. Preliminary workup in the emergency room was significant for urinalysis with numerous WBCs present numerous RBCs present. Patient had Long placed in the emergency room for urinary retention. Patient has been admitted for further evaluation management and treatment. Long was placed and urine culture obtained. Patient was placed on Rocephin. urine culture negative and UTI ruled out. Urology consulted and evaluation noted that patient can discharged on long and follow up outpatient. Blood pressure elevated despite being on Losartan and Tamsulosin, HCTZ 12.5mg daily added. Continue follow up with PCP. Patient discharged to follow up with urology as instructed F/u with PCP in 3-5 days Assessment and Plan (1) Elevated PSA: Code(s): R97.20 - Elevated prostate specific antigen [PSA] Status: Acute (2) Acute UTI: Code(s): N39.0 - Urinary tract infection, site not specified Status: Acute Assessment and Plan: pt started on iv rocephin await uc follow [facility] can dc after uc is available and do voiding trail in follow up clinic apt (3) Acute urinary retention: Code(s): R33.8 - Other retention of urine Status: Acute Assessment and Plan: Status post Long catheter placement pt seen by urology md herrera started try voiding trail in 5-7 days time (4) Stroke: Code(s): I63.9 - Cerebral infarction, unspecified Status: Acute Assessment and Plan: history of cva (5) Seizures: Code(s): R56.9 - Unspecified convulsions Status: Acute Assessment and Plan: history of seizures controlled (6) Migraine: Code(s): G43.909 - Migraine, unspecified, not intractable, without status migrainosus Status: Acute Assessment and Plan: history of migraines no complaints presently (7) Diabetes: Code(s): E11.9 - Type 2 diabetes mellitus without complications Status: Acute Assessment and Plan: rebecca porras (8) COPD (chronic obstructive pulmonary disease): Code(s): J44.9 - Chronic obstructive pulmonary disease, unspecified Status: Acute Assessment and Plan: Stable no respiratory complaints Time Spent with Patient Time attestation: Total time spent providing and/or coordinating discharge services: DS: Data Data Completed and Pending Labs on day of discharge: Labs from last 24 hours 03/17/24 05:28 WBC 11.3 H RBC 4.35 L Hgb 13.2 L Hct 38.5 L MCV 88.5 MCH 30.3 MCHC 34.3 RDW 12.1 Plt Count 183 MPV 10.5 H Sodium 138 Potassium 3.9 Chloride 112 H Carbon Dioxide 26 Anion Gap 0 L BUN 11 D Creatinine 0.80 Estim Creat Clear Calc 85 Estimated GFR > 60 Glucose 88 Calcium 8.5 Discharge Plan Discharge Attending physician on discharge: Puneet Cardoza Consulting providers: Maverick Carrasquillo Discharging Clinician: Puneet Cardoza Anticipated Discharge Date/Time: 03/17/24 15:28 Patient Disposition: Home, Self-Care Activity: as tolerated Diet: as tolerated Patient Instructions: Antibiotic Form, Suicide Prevention (GEN), Depression Management for Older Adults (DC) Patient Language: [place] Island[place] Stand Alone Forms: General Discharge Information Follow-up/Referrals: Odilon,MD Annabelle [Primary Care Provider] - (F/u with PCP in 3-5 days ) Maverick Carrasquillo MD [Physician] - (F/u with urology as instructed ) Discharge Medications: New tamsulosin 0.4 mg Capsule 0.4 mg PO QAM 30 Days Qty: 30 1RF hydrochlorothiazide 12.5 mg tablet 12.5 mg PO DAILY Qty: 30 1RF Continued sertraline 50 mg tablet 50 mg PO DAILY loratadine 10 mg tablet 10 mg PO DAILY czyldttv-tbp-dootf-vit K-lycop 400-20-300 mcg tablet 1 tablet PO DAILY aspirin 81 mg tablet,delayed release (DR/EC) 81 mg PO DAILY atorvastatin 40 mg tablet 40 mg PO DAILY cefdinir 300 mg capsule 300 mg PO DAILY losartan 50 mg tablet 50 mg PO DAILY Date of admission: 03/15/24 18:04 Primary Care Provider: OdilonAnnabelle Admitting Provider: Robert Boyle Attending physician on admission: Lisa Shrestha Condition: Stable
--- OUTSIDE RECORDS SUMMARY | 2024-03-22 20:43 | XMS_ITS | Referral Summary ---
Author Organization [facility] [employer] Address [address] [place] [address] Care Team Providers Care Saddle Stitcher Name Role Phone Annabelle Donald MD Primary Care Provider Source Comments [facility],non-owned Affiliates and Associated Physician Practices is amultiple site organization consisting of ambulatory clinics and hospital sitesin [place], [place], [place] and [place]. This disclosure is being madepursuant to the Care Everywhere program and may not contain all information available regarding this patient. Last updated 17.[facility] [employer] Allergies No known active allergies Medications * Be aware that medications may not be up to date on this document. Alwaysverify current medications with the patient. Medication Sig Dispensed Refills Start Date End Date Status atorvastatin (LIPITOR) 20 MG tablet 09/14/2013 Active quinapril (ACCUPRIL) 10 MG tablet TK 1 T PO QD 3 07/18/2016 Active hydroCHLOROthiazide (HYDRODIURIL) 12.5 MG TK 1 T PO QD Active HYDROcodone-acetami nophen (NORCO) 5-325 MG tablet TK 1 T PO Q 6 TO 8 H Active ibuprofen (MOTRIN) 800 MG tablet TK 1 T PO TID Active meloxicam (MOBIC) 15 MG tablet meloxicam 15 mg tablet Active tiotropium (SPIRIVA RESPIMAT) 2.5 MCG/ACT inhaler INHALE 2 PUFFS PO QD Active albuterol HFA (VENTOLIN HFA) 108 (90 BASE) MCG/ACT inhaler INHALE 2 PUFFS PO Q 4 H Active diclofenac sodium EC (VOLTAREN) 50 MG tablet 01/11/2018 Active loratadine (CLARITIN) 10 MG tablet TK 1 T PO QD PRN FOR 30 DAYS 3 01/21/2018 Active valproic acid (DEPAKENE) 250 MG capsuleIndications: 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, notintrac, wo status (HCC),Essential (primary) hypertension,Medica tion monitoring encounter Take 2 (two) capsules by mouth 4 times daily 240 capsule 11 10/11/2021 Active carBAMazepine ER 12hr (CARBATROL) 300 MG capsuleIndications: 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, notintrac, wo status (HCC),Essential (primary) hypertension,Medica tion monitoring encounter Take 2 (two) capsules by mouth every 12 hours TAKE 2 CAPSULES BY MOUTH TWICE DAILY 120 capsule 11 10/11/2021 Active Active Problems No known active problems Immunizations Name Administration Dates Next Due INFLUENZA 01/20/2017 PNEUMOCOCCAL PPSV23 02/04/2017 TDAP (7yrs+) 02/04/2017 Social History Tobacco Use Types Packs/Day Years Used Date Smoking Tobacco: Former Cigarettes Q uit: 2017 Smokeless Tobacco: Never Alcohol Use Standard Drinks/Week Comments Yes 1 (1 standard drink = 0.6 oz pur e alcohol) rarely Sex and Gender Information Value Date Recorded Sex Assigned at Not on file Gender Identity Not on file Sexual Orientation Not on file Last Filed Vital Signs Vital Sign Reading Time Taken Comments Blood Pressure 150/86 04/01/2019 3:08 PM [employer]INT INSPECTOR Pulse 75 04/01/2019 3:08 PM [employer]INT INSPECTOR Temperature 36.8 ??C (98.3 ??F) 03/11/2018 1:56 PM CS T Respiratory Rate 16 05/06/2017 5:31 PM PRINT INSPECTOR Oxygen Saturation 100% 05/06/2017 5:31 PM PRINT INSPECTOR Inhaled Oxygen Concentration - - Weight 100.2 kg (221 lb) 04/01/2019 3:08 PM PRINT INSPECTOR Height 177.8 cm (5' 10 ) 04/01/2019 3:08 PM PRINT INSPECTOR Body Mass Index 31.71 04/01/2019 3:08 PM PRINT INSPECTOR Plan of Treatment Not on file Care Teams Saddle Stitcher Relationship Specialty Start Date End Date Annabelle Donald MD [address] [id number] PCP - General 03/04/18
--- OUTSIDE RECORDS SUMMARY | 2024-03-22 20:43 | XMS_ITS | Encounter Summary ---
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 (HCC) ; Essential (primary) hypertension; Medication monitoring encounter Social History Tobacco Use Types Packs/Day Years Used Date Smoking Tobacco: Former Cigarettes Q uit: 2017 Smokeless Tobacco: Never Alcohol Use Standard Drinks/Week Comments Yes 1 (1 standard drink = 0.6 oz pur e alcohol) rarely Sex and Gender Information Value Date Recorded Sex Assigned at Not on file Gender Identity Not on file Sexual Orientation Not on file documented as of this encounter Progress Notes * Kiersten Warner PA-C - 10/11/2021 7:56 AM CDT Virtual Visit Telemedicine Note Patient Verification & Telemedicine Based Consent I am proceeding with this evaluation at the direct request of the patient. I have verified this is the correct patient and have obtained verbal consent from the patient/surrogate to perform this voluntary telemedicine encounter evaluation. I have explained risks (including potential loss of confiden tiality), benefits, alternatives, and the potential need for subsequent face to face care. Patient/surrogate understands that there is a risk of medical inaccuracies given that our recommendations will be made based on reported data. Knowing that there is a risk that this information is not reported accurately, and that the telemedicine audio, or data feed may be incomplete, the patient agrees toproceed with evaluation and holds us harmless knowing these risks. In this evaluation, we will be providing recommendations only. The patient/surrogate has been notified that other healthcare professionals (including students, residents and technical personnel) may be involved in this audio evaluation. All laws concerning confidentiality and patient access to medical records and copies of medicalrecords apply to telemedicine. I have reviewed this above verification and consent paragraph with the patient/surrogate. Subjective Chief Complaint: Seizures HPI Humza Vasquez a 71 year old male who has completed a telemedicine encounter regarding: follow up- seizures. I obtained information from review of the chart and talking to the patient. Patient was last seen on 07/03/2019 via phone visit with Julio Aaron CNP for seizures Patient has a h/o seizures since teenage. Patient is seizures free for >30 years. Patient continues to be seizure free. He is tolerating medication well. No new complaints today. Current Home ASM Valproic acid 250mg 2-2-2-2 2000mg/ day carbamazepine ER 300mg 2-2 1200mg/day Current Outpatient Medications on File Prior to Visit Medication Sig Dispense Refill ??? albuterol HFA (VENTOLIN HFA) 108 (90 BASE) MCG/ACT inhaler INHALE 2 PUFFS PO Q 4 H ??? atorvastatin (LIPITOR) 20 MG tablet ??? carBAMazepine ER 12hr (CARBATROL) 300 MG capsule TAKE 2 CAPSULES BY MOUTH TWICE DAILY 120 capsule 2 ??? diclofenac sodium EC (VOLTAREN) 50 MG tablet ??? hydroCHLOROthiazide (HYDRODIURIL) 12.5 MG TK 1 T PO QD ??? HYDROcodone-acetaminophen (NORCO) 5-325 MG tablet TK 1 T PO Q 6 TO 8 H ??? ibuprofen (MOTRIN) 800 MG tablet TK 1 T PO TID ??? loratadine (CLARITIN) 10 MG tablet TK 1 T PO QD PRN FOR 30 DAYS 3 ??? meloxicam (MOBIC) 15 MG tablet meloxicam 15 mg tablet ??? quinapril (ACCUPRIL) 10 MG tablet TK 1 T PO QD 3 ??? tiotropium (SPIRIVA RESPIMAT) 2.5 MCG/ACT inhaler INHALE 2 PUFFS PO QD ??? valproic acid (DEPAKENE) 250 MG capsule TAKE 2 CAPSULES BY MOUTH EVERY MORNING, TAKE 2 CAPSULESAT NOON AND TAKE 2 CAPSULES AT 5 PM THEN TAKE 2 CAPSULES BY MOUTH EVERY NIGHT AT BEDTIME 240 capsule 2 No current facility-administered medications on file prior to visit. No Known Allergies Past Medical History: Diagnosis Date ??? COPD (chronic obstructive pulmonary disease) ??? DJD (degenerative joint disease) ??? Headaches, cluster ??? Hernia ??? High blood pressure ??? High cholesterol ??? Seizures Past Surgical History: Procedure Laterality Date ??? Hernia Repair x2 Social History Socioeconomic History ??? Marital status: Spouse name: Not on file ??? Number of children: Not on file ??? Years of education: Not on file ??? Highest education level: Not on file Occupational History ??? 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 Smoking status: Former Smoker Types: Cigarettes Quit date: 2017 Years since quittin.5 ??? Smokeless tobacco: Never Used Substance and Sexual Activity ??? Alcohol use: Yes Alcohol/week: 1.0 standard drink Types: 1 Cans of beer per week Comment: rarely ??? Drug use: No ??? Sexual activity: Not on file Other Topics Concern ??? Not on file Social History Narrative ??? Not on file Social Determinants of Health Financial Resource Strain: Not on file Food Insecurity: Not on file Transportation Needs: Not on file Physical Activity: Not on file Stress: Not on file Social Connections: Not on file Intimate Partner Violence: Not on file Housing Stability: Not on file Smoking- no Illicit drugs- no Alcohol- occasionally Objective Physical Exam Patient is awake alert and oriented. Unable to perform full physical exam due to telephone visit. Data Review/Other Information All labs reviewed Results for HUMZA RECIO ( ) as of 07/03/2019 18:09 Ref. Range 04/01/2019 16:06 Carbamezapine Latest Ref Range: 4.0 - 12.0 mcg/mL 7.9 Results for HUMZA RECIO ( ) as of 07/03/2019 18:09 Ref. Range 04/01/2019 16:06 Valproic Acid Total Latest Ref Range: 50 - 125 ug/mL 20 (L) Results for HUMZA RECIO ( ) as of 07/03/2019 18:09 Ref. Range 04/01/2019 16:06 Valproic Acid Free Latest Ref Range: 7 - 23 ug/mL <7 (L) Assessment: Humza Recio is a 71 year old male with a past medical history of Epilepsy, Hyperlipidemia, tobacco use disorder, chronic pain, and history of TIA. Epilepsy is well controlled on current ASM. Plan: Patient has been seizure free for 30+ years. Stable on current ASMs. Continue Depakote 500 mg QID (250 mg x 2) and carbamazepine ER 600 mg (300mg X2). meds refilled. Obtain Valproic acid and Carbamazepine level Follow up in 1 year, sooner if needed. - Discussed following seizures precautions with patient-Patient v/u. - be compliant with your medications - avoid sleep deprivation/alcohol/physical and emotional stress/prolonged fasting state - in case of physical illness, approach medical attention - be aware of your AED medication name and dosage - No driving until 6 months seizure free - No working with sharp objects/heavy machinery - do not work in kitchen without supervision - do not take a bath tub dip or go swimming alone/without supervision. - seizures can be harmful to self and others if due precautions are not practiced. Call if any questions arise. All pertinent questions were answered to patient's satisfaction . Patient is to closely follow up with the primary physician for medical needs. Follow up in 12 months Encounter duration: 5 minutes Patient location: Home This encounter was performed using: Audio The plan was reviewed with the patient and the patient confirmed understanding of the plan and all follow-up steps. 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
--- OUTSIDE RECORDS SUMMARY | 2024-03-22 20:43 | XMS_ITS | Encounter Summary ---
Author Organization [facility] Address [address] [place] [address] Care Team Providers Care Employee Benefits Coordinator Name Role Phone Annabelle Donald MD Primary Care Provider Reason for Visit * Reason Comments Refill Request Encounter Details Date Type Department Care Team (Late st Contact Info) Description 10/25/2020 Refill [facility] [address] [place] [address] Julio Aaron, ENGINEERED WOOD DESIGNER-MANAGER WEALTH MANAGEMENT [address] [place] [phone] Refill Request Social History Tobacco Use Types Packs/Day Years [...] on file documented as of this encounter Plan of Treatment Not on file documented as of this encounter Visit Diagnoses Diagnosis 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
--- OUTSIDE RECORDS SUMMARY | 2024-03-22 20:43 | XMS_ITS | Encounter Summary ---
Author Organization [facility] Address [address] [place] [address] Care Team Providers Care Valve Mechanic Name Role Phone Annabelle Donald MD Primary Care Provider Reason for Visit * Reason Comments Refill Request Encounter Details Date Type Department Care Team (Late st Contact Info) Description 07/31/2021 Refill [facility] [address] [place] [address], [place] [phone] Julio Aaron, EGGS INSPECTOR-BIRD CAGE ASSEMBLER [address] [place] [address] [place] [phone] Refill Request Social History Tobacco Use Types [...] w cmplx part sz, notintrac, wo status ([facility]) Localization-related (focal) (partial) epilepsy and epileptic syndromes with complex partial seizures, without mention of intractable epilepsy Essential (primary) hypertension Unspecified essential hypertension Medication monitoring encounter Encounter for therapeutic drug monitoring documented in this encounter Care Teams Valve Mechanic Relationship Specialty Start Date End Date Annabelle Donald MD [address] [phone] PCP - General 03/04/18 documented as of this encounter
--- OUTSIDE RECORDS SUMMARY | 2024-03-22 20:43 | XMS_ITS | Encounter Summary ---
Author Organization [facility] Address [address] [facility] [place] [address] Care Team Providers Care Supervisor Pleating Name Role Phone Annabelle Donald MD Primary Care Provider Reason for Visit * Reason Comments Refill Request Encounter Details Date Type Department Care Team (Late st Contact Info) Description 07/19/2020 Refill [facility] [address] [place] [address] Julio Aaron, HOOKER INSPECTOR-FACILITIES SUPERVISOR [address] [place] [phone] Refill Request Social History Tobacco Use Types [...] monitoring documented in this encounter Care Teams Supervisor Pleating Relationship Specialty Start Date End Date Annabelle Donald MD [address] [phone] PCP - General 03/04/18 documented as of this encounter
--- OUTSIDE RECORDS SUMMARY | 2024-03-22 20:43 | XMS_ITS | Encounter Summary ---
Author Organization 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 Subjective Chief Complaint Patient presents with ??? Follow-up seizure Humza is a 69 year old male who has completed a telemedicine encounter regarding: follow up- seizures. I obtained information from review of the chart and talking to the patient. Patient was last seen on 04/01/2019. See previous note for more details. Patient has a h/o seizures since teenage. Patient is seizures free for >30 years. Patient is on Depakote 500 mg QID (250 mg x 2) and carbamazepine ER 300 mg 2 capsule = 600 BID. Tolerating medications well. ?? Reports no new neurological complaints today. ROS EYES: no double vision, no blurred vision ENT: no swallowing problems CARD/VASC: no chest pain or palpitation RESP:SOB - has COPD GI: no abdominal pain or change in bowel habits : no change in bladder habits NEUROLOGIC: As discussed in the history of present illness PSYCHIATRIC: Mood stable Current Outpatient Medications on File Prior to Visit Medication Sig Dispense Refill ??? albuterol HFA (VENTOLIN HFA) 108 (90 BASE) MCG/ACT inhaler INHALE 2 PUFFS PO Q 4 H ??? atorvastatin (LIPITOR) 20 MG tablet ??? carBAMazepine ER 12hr (CARBATROL) 300 MG capsule Take 2 capsules twice a day 120 capsule 5 ??? diclofenac sodium EC (VOLTAREN) 50 MG [...] capsule TAKE 2 CAPSULES BY MOUTH EVERY MORNING AND 2 CAPSULES BY MOUTH AT NOON AND 5PM THEN 2 CAPSULES BY MOUTH EVERY NIGHT AT BEDTIME 240 capsule 5 No current facility-administered medications on file prior to visit. .allergies Past Medical History: Diagnosis Date ??? COPD [...] ??? 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 Financial resource strain: Not on file ??? Food insecurity Worry: Not on file Inability: Not on file ??? Transportation needs Medical: Not on file Non-medical: Not on file Tobacco Use ??? Smoking status: Former Smoker Types: Cigarettes Last attempt to quit: 2017 Years since quittin.2 ??? Smokeless tobacco: Never Used Substance and Sexual Activity ??? Alcohol use: Yes Alcohol/week: 1.0 standard drinks Types: 1 Cans of beer per week Comment: rarely ??? Drug use: No ??? Sexual activity: Not on file Lifestyle ??? Physical activity Days per week: Not on file Minutes per session: Not on file ??? Stress: Not on file Relationships ??? Social connections Talks on phone: Not on file Gets together: Not on file Attends jewish service: Not on file Active member of club or organization: Not on file Attends meetings of clubs or organizations: Not on file Relationship status: Not on file ??? Intimate partner violence Fear of current or ex partner: Not on file Emotionally abused: Not on file Physically abused: Not on file Forced sexual activity: Not on file Other Topics Concern ??? Not on file Social History Narrative ??? Not on file Smoking- no Illicit drugs- [...] 7 - 23 ug/mL <7 (L) Assessment: seizures Plan: Patient has been seizure free for 30+ years. Stable on current AEDs. Continue Depakote 500 mg QID (250 mg x 2) and carbamazepine ER 300 mg 2 capsule = 600 BID. meds refilled. - Discussed following seizures precautions with patient-Patient [...] physician for medical needs. Follow up in 6 months Encounter duration: 11 minutes Patient location: Home This encounter was performed using: Audio The plan was reviewed with the patient and the patient confirmed understanding of the plan and all follow-up steps. 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
--- OUTSIDE RECORDS SUMMARY | 2024-03-22 20:43 | XMS_ITS | Clinical Summary ---
Author Organization [facility] Address [address] [facility] [place] [address] Care Team Providers Care Silverware Buffing Machine Operator Name Role Phone Annabelle Donald MD Primary Care Provider Source Comments [facility],non-owned Affiliates and Associated Physician Practices is amultiple site organization consisting of ambulatory clinics and hospital sitesin [place], [place], [place] and [place]. This disclosure is being madepursuant to the Care Everywhere program and may not contain all information available regarding this patient. Last updated 17.[facility] Allergies No known active allergies Medications * [...] 01/20/2017 PNEUMOCOCCAL PPSV23 02/04/2017 TDAP (7yrs+) 02/04/2017 Family History Medical History Relation Name Comments Diabetes - Gestational Brother Cancer - Lung Father Hypertension Mother Depression Neg Hx Seizures Neg Hx Relation Name Status Comments Brother Alive Father Mother Alive Social History Tobacco Use Types Packs/Day Years [...] Comments Blood Pressure 150/86 04/01/2019 3:08 PM CERTIFICATION OFFICER Pulse 75 04/01/2019 3:08 PM CERTIFICATION OFFICER Temperature 36.8 ??C (98.3 ??F) 03/11/2018 1:56 PM CS T Respiratory Rate 16 05/06/2017 5:31 PM CERTIFICATION OFFICER Oxygen Saturation 100% 05/06/2017 5:31 PM CERTIFICATION OFFICER Inhaled Oxygen Concentration - - Weight 100.2 kg (221 lb) 04/01/2019 3:08 PM CERTIFICATION OFFICER Height 177.8 cm (5' 10 ) 04/01/2019 3:08 PM CERTIFICATION OFFICER Body Mass Index 31.71 04/01/2019 3:08 PM CERTIFICATION OFFICER Plan of Treatment Health Maintenance Due Date Last Done Comments COLOGUARD (AGES 45-75) - COL ON CA SCREENING 1952 COLON MONITORING 1952 COLONOSCOPY - COLON CA SCREENING 1952 CT COLONOGRAPHY - COLON CA SCREENING 1950 Colorectal Cancer Screening 1952 FIT - COLON CA SCREENING 1952 FLEX SIG - COLON CA SCREENING 1952 HEPATITIS C SCREENING 01/08/1970 ZOSTER VACCINE (1 of 2) 01/12/2002 AAA SCREENING 01/12/2017 PNEUMOCOCCAL VACCINE 65+ (2 of 2 - PCV) 02/04/2018 02/04/2017 DEPRESSION SCREENING 03/25/2023 COVID-19 VACCINE (1 - 2023-2 5 season) 2023 INFLUENZA VACCINE (#1) 2023 , 01/22/2019, 01/20/2017 Respiratory Syncytial Virus (RSV) Vaccine Pt: or over 60 yrs (1 - 1-dose 75+ series) 01/12/2027 DTAP/TDAP/TD VACCINES (2 - T d or Tdap) 02/04/2027 02/04/2017 HEPATITIS B VACCINE Aged Out No longe r eligible based on patient's age to complete this topic HIB VACCINE Aged Out No longer eligi ble based on patient's age to complete this topic HPV VACCINE Aged Out No longer eligi ble based on patient's age to complete this topic MENINGOCOCCAL VACCINE Aged Out No kaylen xavier eligible based on patient's age to complete this topic Care Teams Silverware Buffing Machine Operator Relationship Specialty Start Date End Date Annabelle Donald MD [address] [phone] PCP - General 03/04/18
--- OUTSIDE RECORDS SUMMARY | 2024-03-22 20:43 | XMS_ITS | Patient Health Summary ---
Author Organization [facility] Address [address] [place] [address] Care Team Providers Care Iron Caster Name Role Phone Annabelle Donald MD Primary Care Provider Note from [facility],non-owned Affiliates and Associated Physician Practices is amultiple site organization consisting of ambulatory clinics and hospital sitesin [place], [place], [place] and [place]. This disclosure is being madepursuant to the Care Everywhere program and may not contain all information available regarding this patient. Last updated 17.[facility] Allergies No known active allergies Medications * Be aware that medications may not be up to date on this document. Alwaysverify current medications with the patient. * atorvastatin (LIPITOR) 20 MG tablet(Started 09/14/2013) * quinapril (ACCUPRIL) 10 MG tablet(Started 07/18/2016) TK 1 T PO QD 3 refills left * hydroCHLOROthiazide (HYDRODIURIL) 12.5 MG TK 1 T PO QD * HYDROcodone-acetaminophen (NORCO) 5-325 MG tablet TK 1 T PO Q 6 TO 8 H * ibuprofen (MOTRIN) 800 MG tablet TK 1 T PO TID * meloxicam (MOBIC) 15 MG tablet meloxicam 15 mg tablet * tiotropium (SPIRIVA RESPIMAT) 2.5 MCG/ACT inhaler INHALE 2 PUFFS PO QD * albuterol HFA (VENTOLIN HFA) 108 (90 BASE) MCG/ACT inhaler INHALE 2 PUFFS PO Q 4 H * diclofenac sodium EC (VOLTAREN) 50 MG tablet(Started 01/11/2018) * loratadine (CLARITIN) 10 MG tablet(Started 01/21/2018) TK 1 T PO QD PRN FOR 30 DAYS 3 refills left * valproic acid (DEPAKENE) 250 MG capsule(Started 10/11/2021) Take 2 (two) capsules by mouth 4 times daily 11 refills by 10/11/2022 * carBAMazepine ER 12hr (CARBATROL) 300 MG capsule(Started 10/11/2021) Take 2 (two) capsules by mouth every 12 hours TAKE 2 CAPSULES BY MOUTH TWICE DAILY 11 refills by 10/11/2022 Active Problems No known active problems Immunizations * INFLUENZA(Given 01/20/2017) * PNEUMOCOCCAL PPSV23(Given 02/04/2017) * TDAP (7yrs+)(Given 02/04/2017) Social History Tobacco Use Types Packs/Day Years [...] Comments Blood Pressure 150/86 04/01/2019 3:08 PM ROTOR CASTING MACHINE OPERATOR Pulse 75 04/01/2019 3:08 PM ROTOR CASTING MACHINE OPERATOR Temperature 36.8 ??C (98.3 ??F) 03/11/2018 1:56 PM CS T Respiratory Rate 16 05/06/2017 5:31 PM ROTOR CASTING MACHINE OPERATOR Oxygen Saturation 100% 05/06/2017 5:31 PM ROTOR CASTING MACHINE OPERATOR Inhaled Oxygen Concentration - - Weight 100.2 kg (221 lb) 04/01/2019 3:08 PM ROTOR CASTING MACHINE OPERATOR Height 177.8 cm (5' 10 ) 04/01/2019 3:08 PM ROTOR CASTING MACHINE OPERATOR Body Mass Index 31.71 04/01/2019 3:08 PM ROTOR CASTING MACHINE OPERATOR Procedures * VALPROIC ACID FREE+TOTAL PANEL(Performed 04/01/2019) Performed for 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, notintrac, wo status (HCC), Essential (primary) hypertension, Medication monitoring encounter * CARBAMAZEPINE LEVEL TOTAL(Performed 04/01/2019) Performed for 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, notintrac, wo status (HCC), Essential (primary) hypertension, Medication monitoring encounter * VALPROIC ACID LEVEL(Performed 04/01/2019) Performed for 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, notintrac, wo status (HCC), Essential (primary) hypertension, Medication monitoring encounter * COMPREHENSIVE METABOLIC PANEL(Performed 04/01/2019) Performed for 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, notintrac, wo status (HCC), Essential (primary) hypertension, Medication monitoring encounter * CBC W AUTO DIFFERENTIAL(Performed 04/01/2019) Performed for 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, notintrac, wo status (HCC), Essential (primary) hypertension, Medication monitoring encounter * B-TYPE NATRIURETIC PEPTIDE(Performed 05/06/2017) * TSH(Performed 05/06/2017) * TROPONIN I(Performed 05/06/2017) * BASIC METABOLIC PANEL (CALCIUM TOTAL)(Performed 05/06/2017) * CBC W AUTO DIFFERENTIAL(Performed 05/06/2017) * CBC W AUTO DIFFERENTIAL(Performed 05/06/2017) * ECHO STRESS W DOBUTAMINE(Performed 05/06/2017) * ECHO STRESS COLOR FLOW AND DOPPLER(Performed 05/06/2017) * EKG 12-LEAD(Performed 05/06/2017) * GLUCOSE - POINT OF CARE (AMB) [facility](Performed 05/05/2017) * GLUCOSE - POINT OF CARE (AMB) [facility](Performed 05/05/2017) * GLUCOSE ACCUCHECK(Performed 05/05/2017) * CT ANGIO CHEST PULM EMBOLISM(Performed 05/05/2017) * TROPONIN I(Performed 05/05/2017) * CT HEAD WO CONTRAST(Performed 05/05/2017) * TROPONIN I(Performed 05/05/2017) * TSH(Performed 05/05/2017) * CBC W AUTO DIFFERENTIAL(Performed 05/05/2017) * VALPROIC ACID LEVEL(Performed 05/05/2017) * CARBAMAZEPINE LEVEL TOTAL(Performed 05/05/2017) * COMPREHENSIVE METABOLIC PANEL(Performed 05/05/2017) * CBC W AUTO DIFFERENTIAL(Performed 05/05/2017) * EKG 12-LEAD(Performed 05/05/2017) * EKG 12-LEAD(Performed 05/05/2017) * VALPROIC ACID LEVEL(Performed 01/25/2017) * CARBAMAZEPINE LEVEL TOTAL(Performed 01/25/2017) * COMPREHENSIVE METABOLIC PANEL(Performed 01/25/2017) * CBC W AUTO DIFFERENTIAL(Performed 01/25/2017) * CBC W AUTO DIFFERENTIAL(Performed 01/25/2017) * CBC W AUTO DIFFERENTIAL(Performed 11/22/2015) * VALPROIC ACID LEVEL(Performed 11/22/2015) * CARBAMAZEPINE LEVEL TOTAL(Performed 11/22/2015) * HEPATIC FUNCTION PANEL(Performed 11/22/2015) * HEPATIC FUNCTION PANEL(Performed 11/03/2013) * CBC W AUTO DIFFERENTIAL(Performed 11/03/2013) * VALPROIC ACID LEVEL(Performed 11/03/2013) * VALPROIC ACID LEVEL FREE(Performed 11/03/2013) * CARBAMAZEPINE FREE(Performed 11/03/2013) * CARBAMAZEPINE LEVEL TOTAL(Performed 11/03/2013) * DERMATOPATHOLOGY(Performed 12/17/2011) * DERMATOPATHOLOGY(Performed 11/16/2011) * LAB HISTORICAL RESULTS-ONBASE(Performed 05/14/2009) Results * (ABNORMAL) VALPROIC ACID FREE+TOTAL PANEL (04/01/2019 4:06 PM ROTOR CASTING MACHINE OPERATOR) Valproic Acid Free <7(L) 7 - 23 ug/mL 04/03/2019 3:17 PM ROTOR CASTING MACHINE OPERATOR [facility] ([facility]) Valproic Acid Total 20(L) 50 - 125 ug/mL 04/03/2019 3:17 PM ROTOR CASTING MACHINE OPERATOR [facility] ([facility]) Valproic Acid % Free Not Applicable 5 - 18 % 04/03/2019 3:17 PM ROTOR CASTING MACHINE OPERATOR [facility] ([facility]) Comment: INTERPRETIVE INFORMATION: VPA-percent Free Valproic Acid, Total Therapeutic Range: 50-125 ug/mL Toxic: Greater than 150 ug/mL Valproic Acid, Free Therapeutic Range: 7-23 ug/mL Toxic: Greater than 30 ug/mL VPA-percent Free Therapeutic Range: 5-18 percent Free valproic acid may be important to monitor in patients with altered or unpredictable protein binding capacity because valproic acid exhibits variable, dose-dependent protein binding. Valproic acid is also subject to drug-drug interactions due to displacement of protein binding. Calculating percent free attempts to minimize differences in test cross-reactivity and may be useful in dose optimization. Adverse effects may include headache, somnolence and dizziness. Performed by [facility], [address] [place] [address] [email or web address], Rehan Zamarripa MD, Lab. Director Blood BLOOD SPECIMEN / Unknown Lab Venipuncture / Unknown 04/01/2019 4:06 PM ROTOR CASTING MACHINE OPERATOR 04/01/2019 4:12 PM ROTOR CASTING MACHINE OPERATOR Julio Aaron RIDDLER OPERATOR-[facility] - THERAPEU TIC DRUG MONITORING ORDERABLES [facility] ([facility]) [address] [place] [address], [facility] * CBC WITH DIFFERENTIAL (04/01/2019 4:06 PM ROTOR CASTING MACHINE OPERATOR) Only the most recent of9 resultswithin the time period is included. WBC 7.2 3.5 - 10.5 10? 3 /uL 04/01/2019 4:32 PM [facility] RBC 5.04 4.30 - 5.70 10? 6 /uL 04/01/2019 4:32 PM [facility] Hemoglobin 15.4 13.5 - 17.5 g/dL 04/01/2019 4:32 PM [facility] Hematocrit 44.6 39.0 - 50.0 % 04/01/2019 4:32 PM [facility] MCV 88.5 81.0 - 97.0 fL 04/01/2019 4:32 PM [facility] MCH 30.6 28.0 - 34.0 pg 04/01/2019 4:32 PM [facility] MCHC 34.5 32.0 - 36.0 g/dL 04/01/2019 4:32 PM [facility] Platelet Count 222 150 - 400 10? 3 /uL 04/01/2019 4:32 PM [facility] RDW-SD 37.6 36.0 - 50.0 fL 04/01/2019 4:32 PM [facility] RDW-CV 11.8 11.2 - 14.8 % 04/01/2019 4:32 PM [facility] MPV 10.4 9.3 - 12.8 fL 04/01/2019 4:32 PM [facility] nRBC Absolute 0.00 0 10? 3 /uL 04/01/2019 4:32 PM [facility] nRBC Auto 0.0 0 /100 WBC 04/01/2019 4:32 PM [facility] Neutrophils % 57.6 35.0 - 70.0 % 04/01/2019 4:32 PM [facility] Lymphocytes % 31.2 19.7 - 55.1 % 04/01/2019 4:32 PM [facility] Monocytes % 7.6 3.0 - 15.0 % 04/01/2019 4:32 PM [facility] Eosinophils % 2.5 0.0 - 6.0 % 04/01/2019 4:32 PM [facility] Basophil % 0.8 0.0 - 1.5 % 04/01/2019 4:32 PM [facility] Neutrophils Absolute 4.2 1.6 - 7.0 10? 3 /uL 04/01/2019 4:32 PM [facility] Lymphocyte Absolute 2.3 0.8 - 2.9 10? 3 /uL 04/01/2019 4:32 PM [facility] Monocytes Absolute 0.55 0.14 - 0.66 10? 3 /uL 04/01/2019 4:32 PM [facility] Eosinophils Absolute 0.18 0.00 - 0.45 10? 3 /uL 04/01/2019 4:32 PM [facility] Basophils Absolute 0.06 0.00 - 0.06 10? 3 /uL 04/01/2019 4:32 PM [facility] Immature Granulocytes % 0.3 0.0 - 1.0 % 04/01/2019 4:32 PM [facility] Blood BLOOD SPECIMEN / Unknown Lab Venipuncture / Unknown 04/01/2019 4:06 PM ROTOR CASTING MACHINE OPERATOR 04/01/2019 4:12 PM ROTOR CASTING MACHINE OPERATOR Julio Aaron RIDDLER OPERATOR-[facility] - HEMATOLO GY ORDERABLES [facility] [address] [phone] * (ABNORMAL) COMPREHENSIVE METABOLIC PANEL (04/01/2019 4:06 PM [facility]) Only the most recent of3 resultswithin the time period is included. BUN 12 7 - 26 mg/dL 04/01/2019 5:11 PM [facility] Creatinine 0.8 0.6 - 1.2 mg/dL 04/01/2019 5:11 PM [facility] Sodium 145 136 - 145 mmol/L 04/01/2019 5:11 PM [facility] Potassium 3.8 3.5 - 4.5 mmol/L 04/01/2019 5:11 PM [facility] Chloride 105 98 - 107 mmol/L 04/01/2019 5:11 PM [facility] CO2 29 22 - 29 mmol/L 04/01/2019 5:11 PM [facility] Glucose 95 70 - 115 mg/dL 04/01/2019 5:11 PM [facility] Calcium 9.5 8.4 - 10.2 mg/dL 04/01/2019 5:11 PM [facility] Protein Total 7.4 6.0 - 8.3 g/dL 04/01/2019 5:11 PM [facility] Albumin 3.7 3.4 - 5.0 g/dL 04/01/2019 5:11 PM [facility] Bilirubin Total 0.2 0.2 - 1.2 mg/dL 04/01/2019 5:11 PM [facility] Alkaline Phosphatase 99 40 - 150 Units/L 04/01/2019 5:11 PM [facility] ALT 20 0 - 55 Units/L 04/01/2019 5:11 PM [facility] AST 16 5 - 34 Units/L 04/01/2019 5:11 PM [facility] Anion Gap 15 8 - 18 04/01/2019 5:11 PM [facility] BUN/Creatinine Ratio 15 7 - 23 04/01/2019 5:11 PM [facility] Osmolality Calculated 300 270 - 300 mOsm/kg 04/01/2019 5:11 PM [facility] Albumin/Globulin Ratio 1.0(L) 1.1 - 2.3 04/01/2019 5:11 PM ROTOR CASTING MACHINE OPERATOR [facility] eGFR >60 >60 mL/min/1.7 3 m2 04/01/2019 5:11 PM ROTOR CASTING MACHINE OPERATOR [facility] Blood BLOOD SPECIMEN / Unknown Lab Venipuncture / Unknown 04/01/2019 4:06 PM ROTOR CASTING MACHINE OPERATOR 04/01/2019 4:12 PM ROTOR CASTING MACHINE OPERATOR Julio Aaron APRN-[facility] - CHEMISTR Y ORDERABLES [address] [phone] * (ABNORMAL) VALPROIC ACID LEVEL (04/01/2019 4:06 PM ROTOR CASTING MACHINE OPERATOR) Only the most recent of5 resultswithin the time period is included. Valproic Acid Total 19(L) 50 - 100 mcg/mL 04/01/2019 5:08 PM ROTOR CASTING MACHINE OPERATOR [facility] Blood BLOOD SPECIMEN / Unknown Lab Venipuncture / Unknown 04/01/2019 4:06 PM ROTOR CASTING MACHINE OPERATOR 04/01/2019 4:12 PM ROTOR CASTING MACHINE OPERATOR Julio Aaron APRN-[facility] - CHEMISTR Y ORDERABLES Performing Organization Address [facility] Co de Phone Number [address] [phone] * CARBAMAZEPINE LEVEL TOTAL (04/01/2019 4:06 PM ROTOR CASTING MACHINE OPERATOR) Only the most recent of5 resultswithin the time period is included. Carbamazepine, trough 7.9 4.0 - 12.0 mcg/mL 04/01/2019 5:11 PM ROTOR CASTING MACHINE OPERATOR [facility] Blood BLOOD SPECIMEN / Unknown Lab Venipuncture / Unknown 04/01/2019 4:06 PM ROTOR CASTING MACHINE OPERATOR 04/01/2019 4:12 PM ROTOR CASTING MACHINE OPERATOR Julio Aaron APRN-[facility] - CHEMISTR Y ORDERABLES Performing Organization Address City/[facility]/ZIP Co de Phone Number [address] [phone] * B-TYPE NATRIURETIC PEPTIDE (05/06/2017 9:03 AM ROTOR CASTING MACHINE OPERATOR) [facility] Signature BNP 78 See Comment pg/mL [facility] Comment: A decision threshold of 100 pg/mL has been demonstrated to provide the maximal combination of sensitivity, specificity and predictive value for the diagnosis of congestive heart failure (CHF). ??Virtually all patients with no evidence of CHF have BNP values less than 100 pg/mL. A BNP value greater than 100 pg/mL is consistent with the diagnosis of CHF in the appropriate clinical setting. In a study of 693 patients (male and female) with diagnosed CHF, the following values were determined based on the NYHA functional classification system: NYHA Functional Class ?Mean Valule (pg/mL) ? % >100 pg/mL ?I ?320 ? 58.1 ?II ? 432 ? 73.0 ?III ?656 ? 79.0 ?IV ?1635 ? 98.3 ? Blood specimen (specimen) BLOOD SPECIMEN / Unknown 05/06/2017 9:03 AM ROTOR CASTING MACHINE OPERATOR 05/06/2017 9:12 AM ROTOR CASTING MACHINE OPERATOR Walter Robertson MD LAB - CHEMISTRY CELESTE ANGLIN Performing Organization Address [facility] Co de Phone Number [address] [phone] * TSH (05/06/2017 9:03 AM ROTOR CASTING MACHINE OPERATOR) Only the most recent of2 resultswithin the time period is included. TSH 0.445 0.350 - 4.940 uIU/mL [facility] Blood specimen (specimen) BLOOD SPECIMEN / Unknown 05/06/2017 9:03 AM ROTOR CASTING MACHINE OPERATOR 05/06/2017 9:12 AM ROTOR CASTING MACHINE OPERATOR Walter Robertson MD LAB - CHEMISTRY CELESTE ANGLIN Performing Organization Address [facility] Co de Phone Number [address] [phone] * TROPONIN I (05/06/2017 3:12 AM ROTOR CASTING MACHINE OPERATOR) Only the most recent of3 resultswithin the time period is included. Troponin I 0.015 <0.032 ng/mL [facility] Blood specimen (specimen) BLOOD SPECIMEN / Unknown 05/06/2017 3:12 AM ROTOR CASTING MACHINE OPERATOR 05/06/2017 3:42 AM ROTOR CASTING MACHINE OPERATOR Walter Robertson MD LAB - CHEMISTRY CELESTE ANGLIN Performing Organization Address [facility] Co de Phone Number [address] [phone] * (ABNORMAL) BASIC METABOLIC PANEL (CALCIUM TOTAL) (05/06/2017 3:12 AM ROTOR CASTING MACHINE OPERATOR) BUN 10 7 - 26 mg/dL [facility] Creatinine 0.7 0.6 - 1.2 mg/dL [facility] Sodium 144 136 - 145 mmol/L [facility] Potassium 3.6 3.5 - 4.5 mmol/L [facility] Chloride 111(H) 98 - 107 mmol/L [facility] CO2 22 22 - 29 mmol/L [facility] Glucose 113 70 - 115 mg/dL [facility] Calcium 8.3(L) 8.4 - 10.2 mg/dL [facility] Anion Gap 15 8 - 18 [facility] BUN/Creatinine Ratio 14 7 - 23 [facility] Osmolality Calculated 298 270 - 300 mOsm/kg [facility] eGFR >60 >60 mL/min/1.7 3 m2 [facility] Blood specimen (specimen) BLOOD SPECIMEN / Unknown 05/06/2017 3:12 AM ROTOR CASTING MACHINE OPERATOR 05/06/2017 3:42 AM ROTOR CASTING MACHINE OPERATOR Walter Robertson MD LAB - CHEMISTRY CELESTE ANGLIN [facility] Organization Address City/State/ZIP Co de Phone Number [address] [phone] * ECHO STRESS TEST W DOBUTAMINE (05/06/2017 12:00 AM ROTOR CASTING MACHINE OPERATOR) Anatomical Region Laterality Modality Other 05/06/2017 Walter Robertson MD ECHOCARDIOGRAPHY RAD IANT * ECHO STRESS COLOR FLOW AND DOPPLER (05/06/2017 12:00 AM ROTOR CASTING MACHINE OPERATOR) Anatomical Region Laterality Modality Other 05/06/2017 Walter Robertson MD ECHOCARDIOGRAPHY RAD IANT * EKG 12-LEAD (05/06/2017 12:00 AM ROTOR CASTING MACHINE OPERATOR) Only the most recent of3 resultswithin the time period is included. EKG [facility] Comment: Exam Date/Time: ?? May 06 2017 03:07:32 Test Reason : chest pain Blood Pressure : / mmHG Vent. Rate : 069 BPM ? Atrial Rate : 069 BPM ?? P-R Int : 168 ms ?QRS Dur : 092 ms ?QT Int : 396 ms ? P-R-T Axes : 035 038 058 degrees ?? QTc Int : 424 ms Normal sinus rhythm Normal ECG When compared with ECG of 05-MAY-2017 20:49, No significant change was found Confirmed by BELINDA.KATI FLORES ([id number]), news assignment editor OLIVIA NICKERSON ([id number]) on 05/07/2017 1:26:08 PM Referred By: REFERRING NO ? Confirmed By:KATI COELHO 05/06/2017 Walter Robertson MD ECG ORDERABLES Performing Organization Address [facility] Co de Phone Number [facility] * GLUCOSE - POINT OF CARE (AMB) [facility] (05/05/2017 9:44 PM ROTOR CASTING MACHINE OPERATOR) Only the most recent of2 resultswithin the time period is included. Duong Liu MD LAB - POINT OF CARE ORDERABLES Performing Organization Address [facility] de Phone Number [facility] * GLUCOSE ACCUCHECK (05/05/2017 9:43 PM ROTOR CASTING MACHINE OPERATOR) Glucose, Fingerstick 96 70-115mg/d L mg/dL [facility] ([facility]) Comment:Box Toe Flanger Stitchdowns: JR TRENTON 05/05/2017 9:43 PM ROTOR CASTING MACHINE OPERATOR Sky Llanos MD LAB - CHEMISTRY CELESTE ANGLIN Performing Organization Address [facility] de Phone Number [facility] ([facility]) * CT ANGIO CHEST PULM EMBOLISM (05/05/2017 9:32 PM ROTOR CASTING MACHINE OPERATOR) Anatomical Region Laterality Modality Chest Other Impressions 05/06/2017 9:00 AM ROTOR CASTING MACHINE OPERATOR IMPRESSION: 1. No evidence of pulmonary embolism. 2. No acute pulmonary process. 3. Indeterminate 4 mm right middle lobe subpleural nodule. If the patient is low risk, no follow-up is required. If the patient is high risk, a follow-up CT chest without contrast in 12 months could be considered. 4. Chronic T8 vertebral body compression fracture with 25 percent height loss and no evidence of retropulsion. Dictated by Husam Zhou MD (hvac technician residential). I, Dr. ESTRADA SANTOS M.D. have personally reviewed and interpreted this examination/study. This report was electronically signed by ESTRADA SANTOS M.D. ??on 05/06/2017 9:00 AM . Narrative 05/06/2017 9:00 AM ROTOR CASTING MACHINE OPERATOR EXAMINATION: Computed tomography (CT) of the chest with contrast HISTORY: Shortness of breath, chest pain TECHNIQUE: CT of the chest was performed following the uneventful administration of 75 mL of Omnipaque 350 intravenous contrast according to a pulmonary embolism protocol. COMPARISON: Chest x-ray performed 02/02/2016 FINDINGS: There are no filling defects in the pulmonary arteries to suggest pulmonary embolism. There is a left-sided three-vessel aortic arch. The aorta and main pulmonary arteries are normal in course and caliber. Mild bilateral dependent atelectasis is present. Otherwise no focal consolidation is seen. No pleural effusion or focal pleural thickening is identified. There is no evidence of pneumothorax. There is a 4 mm subpleural nodule in the right middle lobe (series 8, image 58). The trachea is patent and midline. The heart size is normal. No pericardial effusion is present. No mediastinal, hilar, supraclavicular, or axillary lymphadenopathy is seen. A 2.5 cm cyst is seen at the hepatic dome in the right hepatic lobe. A 2.3 cm cyst is seen in hepatic segment 2. A 1.2 cm cyst is seen in the superior pole left kidney. A 1.1 cm exophytic cyst is seen in the superior pole of the right kidney. Otherwise, the visible portions of the liver, spleen, pancreas, adrenal glands, stomach, and bowel are normal. Bone windows demonstrate no suspicious lytic or blastic lesions. There is a chronic T8 compression fracture with 25 percent height loss and no evidence of retropulsion. This is unchanged from the 02/02/2016 lateral radiograph, given differences in technique. Mild multilevel degenerative changes are seen in the spine. Procedure Note Estrada Santos MD - 06/26/2017 EXAMINATION: Computed tomography (CT) of the chest with contrast HISTORY: Shortness of breath, chest pain TECHNIQUE: CT of the chest was performed following the uneventfuladministration of 75 mL of Omnipaque 350 intravenous contrast according toa pulmonary embolism protocol. COMPARISON: Chest x-ray performed 02/02/2016 FINDINGS: There are no filling defects in the pulmonary arteries to suggestpulmonary embolism. There is a left-sided three-vessel aortic arch. Theaorta and main pulmonary arteries are normal in course and caliber. Mild bilateral dependent atelectasis is present. Otherwise no focalconsolidation is seen. No pleural effusion or focal pleural thickening isidentified. There is no evidence of pneumothorax. There is a 4 mmsubpleural nodule in the right middle lobe (series 8, image 58). The trachea is patent and midline. The heart size is normal. No pericardial effusion is present. Nomediastinal, hilar, supraclavicular, or axillary lymphadenopathy isseen. A 2.5 cm cyst is seen at the hepatic dome in the right hepatic lobe. A 2.3cm cyst is seen in hepatic segment 2. A 1.2 cm cyst is seen in thesuperior pole left kidney. A 1.1 cm exophytic cyst is seen in the superiorpole of the right kidney. Otherwise, the visible portions of the liver, spleen, pancreas, adrenal glands,stomach, and bowel are normal. Bone windows demonstrate no suspicious lytic or blastic lesions. There nata chronic T8 compression fracture with 25 percent height loss and noevidence of retropulsion. This is unchanged from the 02/02/2016 lateralradiograph, given differences in technique. Mild multilevel degenerative changes are seen in the spine. IMPRESSION IMPRESSION: 1. No evidence of pulmonary embolism. 2. No acute pulmonary process. 3. Indeterminate 4 mm right middle lobe subpleural nodule. If the patientis low risk, no follow-up is required. If the patient is high risk, afollow-up CT chest without contrast in 12 months could be considered. 4. Chronic T8 vertebral body compression fracture with 25 percent heightloss and no evidence of retropulsion. Dictated by Husam Zhou MD (hvac technician residential). I, Dr. ESTRADA SANTOS M.D. have personally reviewed and interpreted thisexamination/study. This report was electronically signed by ESTRADA SANTOS M.D. on05/06/2017 9:00 AM . Duong Liu MD CT ORDERABLES * CT HEAD WO CONTRAST (05/05/2017 6:53 PM ROTOR CASTING MACHINE OPERATOR) Anatomical Region Laterality Modality Head Other Impressions 05/06/2017 7:27 AM ROTOR CASTING MACHINE OPERATOR IMPRESSION: 1. No acute intracranial process. 2. Minimal mucosal thickening of the sphenoid sinus posteriorly on the right side. This report was electronically signed by BRODY WADE ??on 05/06/2017 7:27 AM . Narrative 05/06/2017 7:27 AM ROTOR CASTING MACHINE OPERATOR EXAMINATION: Computed tomography (CT) of the head without contrast HISTORY: vertigo TECHNIQUE: CT of the head was performed without contrast according to standard protocol. FINDINGS: No comparison studies No acute intra- or extra-axial fluid collections are identified. The ventricles are of normal size, shape, and morphology. The basilar cisterns are patent. No mass effect or midline shift is seen. The vazquez-white matter differentiation is normal. ? The visualized portions of the orbits, paranasal sinuses, and mastoids appear normal. Minimal mucosal thickening is seen in the right sphenoid sinus posteriorly. No acute fracture is identified. Procedure Note Brody Garcia MD - 06/26/2017 EXAMINATION: Computed tomography (CT) of the head without contrast HISTORY: vertigo TECHNIQUE: CT of the head was performed without contrast according tostandard protocol. FINDINGS: No comparison studies No acute intra- or extra-axial fluid collections are identified. Theventricles are of normal size, shape, and morphology. The basilar cisternsare patent. No mass effect or midline shift is seen. The vazquez-white matterdifferentiation is normal. The visualized portions of the orbits, paranasal sinuses, and mastoids appearnormal. Minimal mucosal thickening is seen in the right sphenoid sinusposteriorly. No acute fracture is identified. IMPRESSION IMPRESSION: 1. No acute intracranial process. 2. Minimal mucosal thickening of the sphenoid sinus posteriorly on theright side. This report was electronically signed by BRODY WADE on 05/06/20177:27 AM . Ronaldo Casillas MD CT ORDERABLES * HEPATIC FUNCTION PANEL (11/22/2015 2:01 PM CDT) Only the most recent of2 resultswithin the time period is included. Protein Total 6.9 6.1 - 8.1 g/dL [facility] Albumin 4.2 3.6 - 5.1 g/dL [facility]) Globulin 2.7 1.9 - 3.7 g/dL (calc) [facility] ([facility]) Albumin/Globulin Ratio 1.6 1.0 - 2.5 (calc) [facility] ([facility]) Bilirubin Total 0.5 0.2 - 1.2 mg/dL [facility] ([facility]) Bilirubin Direct 0.1 < OR = 0.2 mg/dL [facility] ([facility]) Bilirubin Indirect 0.4 0.2 - 1.2 mg/dL (calc) [facility] ([facility]) Alkaline Phosphatase 99 40 - 115 U/L [facility] ([facility]) AST 15 10 - 35 U/L [facility] ([facility]) ALT 18 9 - 46 U/L [facility] ([facility]) Comment: Test Performed at: [facility] [address] [place], [place] ??[id number] GRABIEL AGUIAR DO,MPH 11/22/2015 2:01 PM CDT 11/22/2015 2:02 PM CDT Julio Aaron APRN-[facility] LAB - CHEMISTR Y ORDERABLES Performing Organization Address City/[facility]/ZIP Co de Phone Number [facility] ([facility]) * CARBAMAZEPINE FREE (11/03/2013 12:50 PM CDT) Carbamezapine Free 1.2 1.0 - 3.0 mcg/mL [facility] ([facility]) Comment: Test Performed at: [facility]/[address] ??[id number] ROBERTO CARLOS UREÑA MD Venous blood specimen (specimen) 11/03/2013 12:50 PM CDT 11/03/2013 12:51 PM CDT Bharath Vera MD LAB - THERAPEUTIC DR REES MONITORING ORDERABLES [facility] ([facility]) * VALPROIC ACID LEVEL FREE (11/03/2013 12:50 PM CDT) Valproic Acid Free 8.7 4.8 - 17.3 mg/L [facility] ([facility]) Comment: Note: Non-linear drug binding properties result in the fraction of Free Valproic Acid increasing as total drug increases. The free fraction may range from 5% to 25% for the total drug range of 30-160 mg/L. ? Test Performed at: [facility] [place] [id number] [place] [address] ?? ROBERTO CARLOS UREÑA MD Venous blood specimen (specimen) 11/03/2013 12:50 PM CDT 11/03/2013 12:51 PM CDT Bharath Vera MD LAB - THERAPEUTIC DR REES MONITORING ORDERABLES [facility] ([facility]) * PATHOLOGY TISSUE FOR DERMATOLOGY (12/17/2011 12:00 AM CDT) Only the most recent of2 resultswithin the time period is included. Result CASE: [id number] PATIENT: CHADD REICO PATHOLOGIC DIAGNOSIS: Left chest: BASAL CELL CARCINOMA, INFILTRATIVE NOT PRESENT AT MARGIN DERMAL SCAR CLINICAL DATA: BCC Check margins. GROSS DESCRIPTION: Received is one formalin filled container labeled with the patient's name and designated left chest. The specimen consists of an ellipse measuring [id number] and is oriented with a suture/notch at the 12 o'clock position (labeled on the requisition as notch left). The 12 o'clock to 6 o'clock margin is inked green. The 6 o'clock to 12 o'clock margin is inked black. The 12 o'clock tip is submitted in cassette 1. The 6 o'clock tip is submitted in cassette 2. The remainder of the ellipse is serially sectioned and submitted in cassettes 3-11. Jar 0. MICROSCOPIC DESCRIPTION: Within the dermis there are aggregates of basaloid cells associated with fibromyxoid stroma and epithelial-stro mal clefts. At the advancing margin of the neoplasm, there are smaller angulated nests that infiltrate the dermis. The lesion is not present at the margin of the specimen. There are fibroblasts and collagen bundles oriented parallel to the skin surface with elongated blood vessels, some of which are oriented perpendicular to the skin surface. Final Diagnosis performed by Katie Forrest M.D. Electronically signed 12/19/2011 3:40:40PM [facility] Comment: Performed at: Dermatopathology Laboratory [facility] Department of Dermatology [address] [facility] [place] [address] Phone number: [phone] Toll Free: [phone] FAX: [phone] 12/17/2011 12/18/2011 Omero Yang LAB - PATHOLOGY/CYTO LOGY ORDERABLES Performing Organization Address City/[facility]/ZIP Co de Phone Number [facility]. 5th Floor Lab [address] [phone] * LAB HISTORICAL RESULTS-ONBASE (05/14/2009) 05/14/2009 Historical Provider LAB - CHEMISTRY O RDERABLES Performing Organization Address City/[facility]/ZIP Co de Phone Number [facility] Care Teams Iron Caster Relationship Specialty Start Date End Date Annabelle Donald MD [address] [phone] PCP - General 03/04/18
--- OUTSIDE RECORDS SUMMARY | 2024-03-22 20:43 | XMS_ITS | Encounter Summary ---
Author Organization [facility] Address [address] [facility] [place] [address] Care Team Providers Care Securities Attorney Name Role Phone Annabelle Donald MD Primary Care Provider Encounter Details Date Type Department Care Team (Late st Contact Info) Description 06/20/2020 Orders Only [facility] - COVID Vax [address] [place] [address] Oren Locke MD [address] [phone] Need for vaccination Social History Tobacco Use Types Packs/Day Years [...] as of this encounter Visit Diagnoses Diagnosis Need for vaccination Need for prophylactic vaccination and inoculation against unspecified single disease documented in this encounter Care Teams Securities Attorney Relationship Specialty Start Date End Date Annabelle Donald MD [address] [phone] PCP - General 03/04/18 documented as of this encounter
--- OUTSIDE RECORDS SUMMARY | 2024-03-22 20:43 | XMS_ITS | Encounter Summary ---
Author Organization [facility] Address [address] [place] [address] Care Team Providers Care Cook Helper Preserves Name Role Phone Annabelle Donald MD Primary Care Provider Reason for Visit * Reason Comments Follow-up Encounter Details Date Type Department Care Team (Late st Contact Info) Description 08/02/2020 1:30 PM CDT Video Visit [facility] Neurology [address] [facility], [place] [address] Julio Aaron, CHROME TANNER-CHANNEL PROGRAM MANAGER [address] [place] [address] [place] [phone] 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 [facility] * Julio Aaron APRN-CNP - 08/02/2020 1:11 PM CDT I called pt for today's tele health visit. Alexandra answered and she said Humza is at the hospital for his Endoscopy. She reported he is doing ok otherwise. She will call scheduling to r/s this follow up appointment. Phone of [facility] [employer] number given to . Meds refilled. Julio Aarno, MSN, SOFTWARE APPLICATION TESTER-C Department of Neurology documented in this encounter Plan of Treatment [...] monitoring documented in this encounter Care Teams Cook Helper Preserves Relationship Specialty Start Date End Date Annabelle Donald MD [address] [phone] PCP - General 03/04/18 documented as of this encounter
--- OUTSIDE RECORDS SUMMARY | 2024-03-22 20:44 | XMS_ITS | Encounter Summary ---
Author Organization [facility] Address [address] [facility] [place] [address] Care Team Providers Care Bat Carrier Name Role Phone Kelsie Toure Primary Care Provider + Encounter Details Date Type Department Care Team (Late st Contact Info) Description 08/02/2017 Orders Only [facility] [address] [place] [address] Beni Mondragon Social History Tobacco Use Types Packs/Day Years Used Date Smoking Tobacco: Some Days Cigarettes Smokeless Tobacco: Never Alcohol Use Standard Drinks/Week Comments Yes 1 (1 standard drink = 0.6 oz pur e alcohol) Sex and Gender Information Value Date Recorded Sex Assigned at Not on file Gender Identity Not on file Sexual Orientation Not on file documented as of this encounter Plan of Treatment Not on file documented as of this encounter Visit Diagnoses Not on filedocumented in this encounter Care Teams Bat Carrier Relationship Specialty Start Date End Date Kelsie Toure APRN-CNP [address] [place] [address] PCP - General Nurse Practitioner 08/13/16 03/03/18 documented as of this encounter
--- OUTSIDE RECORDS SUMMARY | 2024-03-22 20:44 | XMS_ITS | Encounter Summary ---
Author Organization [facility] Address [address] [facility] [place] [address] Care Team Providers Care Community Specialist Name Role Phone Annabelle Donald MD Primary Care Provider Encounter Details Date Type Department Care Team (Latest Contact Info) Description 04/01/2019 3:57 PM CONTINUOUS VULCANIZING MACHINE OPERATOR - 04/01/2019 11:[address] [facility] Hospital Encounter [facility] DRAW STATION [address] [place] [phone] Julio Aaron, CHORAL DIRECTOR-RECEPTIONIST SCHEDULER [address] [place] [phone] Discharge Disposition: Home or Self Care Social History Tobacco Use Types Packs/Day Years [...] on file documented as of this encounter Medications at Time of Discharge Medication Sig Dispensed Refills Start Date End Date albuterol HFA (VENTOLIN HFA) 108 (90 BASE) MCG/ACT inhaler INHALE 2 PUFFS PO Q 4 H atorvastatin (LIPITOR) 20 MG tablet 09/14/2013 diclofenac sodium EC (VOLTAREN) 50 MG tablet 01/11/2018 hydroCHLOROthiazide (HYDRODIURIL) 12.5 MG TK 1 T PO QD HYDROcodone-acetaminop hen (NORCO) 5-325 MG tablet TK 1 T PO Q 6 TO 8 H ibuprofen (MOTRIN) 800 MG tablet TK 1 T PO TID loratadine (CLARITIN) 10 MG tablet TK 1 T PO QD PRN FOR 30 DAYS 3 01/21/2018 meloxicam (MOBIC) 15 MG tablet meloxicam 15 mg tablet quinapril (ACCUPRIL) 10 MG tablet TK 1 T PO QD 3 07/18/2016 tiotropium (SPIRIVA RESPIMAT) 2.5 MCG/ACT inhaler INHALE 2 PUFFS PO QD carBAMazepine ER 12hr (CARBATROL) 300 MG capsuleIndications:Loc alz-rltd symptomatic epilepsy w cmplx part sz, notintrac, wo status (HCC),Essential (primary) hypertension,Medicatio n monitoring encounter Take 2 capsules twice a day 120 capsule 5 04/01/2019 07/03/2019 valproic acid (DEPAKENE) 250 MG capsuleIndications:Loc alz-rltd symptomatic epilepsy w cmplx part sz, notintrac, wo status (HCC),Essential (primary) hypertension,Medicatio n monitoring encounter TAKE 2 CAPSULES BY MOUTH EVERY MORNING AND 2 CAPSULES BY MOUTH AT NOON AND 5PM THEN 2 CAPSULES BY MOUTH EVERY NIGHT AT BEDTIME 240 capsule 5 04/01/2019 07/03/2019 documented as of this encounter Plan of Treatment Not on file documented as of this encounter Procedures Procedure Name Priority Date/Time Associated Diagnosis Comments VALPROIC ACID FREE+TOTAL PANEL Routine 04/01/2019 4:06 PM CONTINUOUS VULCANIZING MACHINE OPERATOR 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, wo status (HCC) Essential (primary) hypertension Medication monitoring encounter CBC W AUTO DIFFERENTIAL Routine 04/01/2019 4:06 PM CONTINUOUS VULCANIZING MACHINE OPERATOR Localz-rltd symptomatic epilepsy w cmplx part natalia, notintrac, wo status (HCC) Essential (primary) hypertension Medication monitoring encounter COMPREHENSIVE METABOLIC PANEL Routine 04/01/2019 4:06 PM CONTINUOUS VULCANIZING MACHINE OPERATOR 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, notintrac, wo status (HCC) Essential (primary) hypertension Medication monitoring encounter VALPROIC ACID LEVEL Routine 04/01/2019 4 :06 PM CONTINUOUS VULCANIZING MACHINE OPERATOR 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, notintrac, wo status (HCC) Essential (primary) hypertension Medication monitoring encounter CARBAMAZEPINE LEVEL TOTAL Routine 04/01/2019 4:06 PM CONTINUOUS VULCANIZING MACHINE OPERATOR 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, notintrac, wo status (HCC) Essential (primary) hypertension Medication monitoring encounter documented in this encounter Results * (ABNORMAL) VALPROIC ACID FREE+TOTAL PANEL (04/01/2019 4:06 PM CONTINUOUS VULCANIZING MACHINE OPERATOR) Valproic Acid Free <7(L) 7 - 23 ug/mL 04/03/2019 3:17 PM CONTINUOUS VULCANIZING MACHINE OPERATOR [facility] ([facility]) Valproic Acid Total 20(L) 50 - 125 ug/mL 04/03/2019 3:17 PM CONTINUOUS VULCANIZING MACHINE OPERATOR [facility] ([facility]) Valproic Acid % Free Not Applicable 5 - 18 % 04/03/2019 3:17 PM CONTINUOUS VULCANIZING MACHINE OPERATOR [facility] ([facility]) Comment: INTERPRETIVE INFORMATION: VPA-percent Free Valproic Acid, [...] include headache, somnolence and dizziness. Performed by [facility], [address] [place] [address],[place] [address] [email or web address], Rehan Zamarripa MD, Lab. Director Blood BLOOD SPECIMEN / Unknown Lab Venipuncture / Unknown 04/01/2019 4:06 PM CONTINUOUS VULCANIZING MACHINE OPERATOR 04/01/2019 4:12 PM CONTINUOUS VULCANIZING MACHINE OPERATOR Julio SIMON LAB - THERAPEU TIC DRUG MONITORING ORDERABLES [address] * CARBAMAZEPINE LEVEL TOTAL (04/01/2019 4:06 PM CONTINUOUS VULCANIZING MACHINE OPERATOR) Pathologist [facility] Carbamazepine, trough 7.9 4.0 - 12.0 mcg/mL 04/01/2019 5:11 PM CONTINUOUS VULCANIZING MACHINE OPERATOR [facility] Blood BLOOD SPECIMEN / Unknown Lab Venipuncture / Unknown 04/01/2019 4:06 PM CONTINUOUS VULCANIZING MACHINE OPERATOR 04/01/2019 4:12 PM CONTINUOUS VULCANIZING MACHINE OPERATOR Julio Aaron APRN-RECEPTIONIST SCHEDULER LAB - CHEMISTR Y ORDERABLES [address] [phone] * (ABNORMAL) VALPROIC ACID LEVEL (04/01/2019 4:06 PM CONTINUOUS VULCANIZING MACHINE OPERATOR) [facility] Valproic Acid Total 19(L) 50 - 100 mcg/mL 04/01/2019 5:08 PM CONTINUOUS VULCANIZING MACHINE OPERATOR [facility] Blood BLOOD SPECIMEN / Unknown Lab Venipuncture / Unknown 04/01/2019 4:06 PM CONTINUOUS VULCANIZING MACHINE OPERATOR 04/01/2019 4:12 PM CONTINUOUS VULCANIZING MACHINE OPERATOR Julio Aaron APRNRECEPTIONIST SCHEDULER LAB - CHEMISTR Y ORDERABLES Performing Organization Address City/[facility]/ZIP Co de Phone Number [address] [phone] * (ABNORMAL) COMPREHENSIVE METABOLIC PANEL (04/01/2019 4:06 PM CONTINUOUS VULCANIZING MACHINE OPERATOR) Pathologist [facility] BUN 12 7 - 26 mg/dL 04/01/2019 5:11 PM CONTINUOUS VULCANIZING MACHINE OPERATOR [facility] Creatinine 0.8 0.6 - 1.2 mg/dL 04/01/2019 5:11 PM [facility] Sodium 145 136 - 145 mmol/L 04/01/2019 5:11 PM [facility] Potassium 3.8 3.5 - 4.5 mmol/L 04/01/2019 5:11 PM [facility] Chloride 105 98 - 107 mmol/L 04/01/2019 5:11 PM [facility] CO2 29 22 - 29 mmol/L 04/01/2019 5:11 PM [facility] Glucose 95 70 - 115 mg/dL 04/01/2019 5:11 PM [facility] Calcium 9.5 8.4 - 10.2 mg/dL 04/01/2019 5:11 PM [facility] Protein Total 7.4 6.0 - 8.3 g/dL 04/01/2019 5:11 PM [facility] Albumin 3.7 3.4 - 5.0 g/dL 04/01/2019 5:11 PM [facility] Bilirubin Total 0.2 0.2 - 1.2 mg/dL 04/01/2019 5:11 PM [facility] Alkaline Phosphatase 99 40 - 150 Units/L 04/01/2019 5:11 PM [facility] ALT 20 0 - 55 Units/L 04/01/2019 5:11 PM [facility] AST 16 5 - 34 Units/L 04/01/2019 5:11 PM [facility] Anion Gap 15 8 - 18 04/01/2019 5:11 PM [facility] BUN/Creatinine Ratio 15 7 - 23 04/01/2019 5:11 PM [facility] Osmolality Calculated 300 270 - 300 mOsm/kg 04/01/2019 5:11 PM [facility] Albumin/Globulin Ratio 1.0(L) 1.1 - 2.3 04/01/2019 5:11 PM [facility] eGFR >60 >60 mL/min/1.7 3 m2 04/01/2019 5:11 PM [facility] Blood BLOOD SPECIMEN / Unknown Lab Venipuncture / Unknown 04/01/2019 4:06 PM CONTINUOUS VULCANIZING MACHINE OPERATOR 04/01/2019 4:[address] [facility] Julio Aaron CHORAL DIRECTOR-RECEPTIONIST SCHEDULER LAB - CHEMISTR Y ORDERABLES [facility] [address] [phone] * CBC WITH DIFFERENTIAL (04/01/2019 4:[address] [facility]) WBC 7.2 3.5 - 10.5 10? 3 /uL 04/01/2019 4:32 PM [facility] RBC 5.04 4.30 - 5.70 10? 6 /uL 04/01/2019 4:32 PM [facility] Hemoglobin 15.4 13.5 - 17.5 g/dL 04/01/2019 4:32 PM [facility] Hematocrit 44.6 39.0 - 50.0 % 04/01/2019 4:32 PM [facility] MCV 88.5 81.0 - 97.0 fL 04/01/2019 4:32 PM [facility] MCH 30.6 28.0 - 34.0 pg 04/01/2019 4:32 PM [facility] MCHC 34.5 32.0 - 36.0 g/dL 04/01/2019 4:32 PM [facility] Platelet Count 222 150 - 400 10? 3 /uL 04/01/2019 4:32 PM [facility] RDW-SD 37.6 36.0 - 50.0 fL 04/01/2019 4:32 PM [facility] RDW-CV 11.8 11.2 - 14.8 % 04/01/2019 4:32 PM [facility] MPV 10.4 9.3 - 12.8 fL 04/01/2019 4:32 PM [facility] nRBC Absolute 0.00 0 10? 3 /uL 04/01/2019 4:32 PM [facility] nRBC Auto 0.0 0 /100 WBC 04/01/2019 4:32 PM [facility] Neutrophils % 57.6 35.0 - 70.0 % 04/01/2019 4:32 PM [facility] Lymphocytes % 31.2 19.7 - 55.1 % 04/01/2019 4:32 PM [facility] Monocytes % 7.6 3.0 - 15.0 % 04/01/2019 4:32 PM [facility] Eosinophils % 2.5 0.0 - 6.0 % 04/01/2019 4:32 PM [facility] Basophil % 0.8 0.0 - 1.5 % 04/01/2019 4:32 PM [facility] Neutrophils Absolute 4.2 1.6 - 7.0 10? 3 /uL 04/01/2019 4:32 PM [facility] Lymphocyte Absolute 2.3 0.8 - 2.9 10? 3 /uL 04/01/2019 4:32 PM [facility] Monocytes Absolute 0.55 0.14 - 0.66 10? 3 /uL 04/01/2019 4:32 PM [facility] Eosinophils Absolute 0.18 0.00 - 0.45 10? 3 /uL 04/01/2019 4:32 PM [facility] Basophils Absolute 0.06 0.00 - 0.06 10? 3 /uL 04/01/2019 4:32 PM [facility] Immature Granulocytes % 0.3 0.0 - 1.0 % 04/01/2019 4:32 PM [facility] Blood BLOOD SPECIMEN / Unknown Lab Venipuncture / Unknown 04/01/2019 4:06 PM CONTINUOUS VULCANIZING MACHINE OPERATOR 04/01/2019 4:12 PM CONTINUOUS VULCANIZING MACHINE OPERATOR Julio Aaron CHORAL DIRECTOR-RECEPTIONIST SCHEDULER LAB - HEMATOLO GY ORDERABLES Performing Organization Address [facility]/State/[facility] Co de Phone Number [facility] [address] [phone] documented in this encounter Visit Diagnoses Diagnosis 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
--- OUTSIDE RECORDS SUMMARY | 2024-03-22 20:44 | XMS_ITS | Encounter Summary ---
Author Organization [facility] Address [address] [facility] [place] [address] Care Team Providers Care Java Consultant Name Role Phone Annabelle Donald MD Primary Care Provider Reason for Visit * Reason Onset Date Comments Medication Management 02/12/2019 Encounter Details Date Type Department Care Team (Late st Contact Info) Description 02/12/2019 Telephone [facility] [address] [place] [address] Julio Aaron, TOOL PROCUREMENT COORDINATOR-LITHOGRAPHER HELPER [address] [place] [phone] Medication Management Social History Tobacco Use Types Packs/Day Years [...] on file documented as of this encounter Miscellaneous Notes * Telephone Encounter - Rosetta Mckee - 02/12/2019 10:03 AM CST Left messages on phone numbers in pt's chart to notify pt in order to receive any further refills pt must schedule an appointment per [facility] [place]. Rosetta Mckee Y REP documented in this encounter Plan of Treatment Not on file documented as of this encounter Visit Diagnoses Not on filedocumented in this encounter Care Teams Java Consultant Relationship Specialty Start Date End Date Annabelle Donald MD [address] [phone] PCP - General 03/04/18 documented as of this encounter
--- OUTSIDE RECORDS SUMMARY | 2024-03-22 20:44 | XMS_ITS | Encounter Summary ---
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 OPERATOR-BASEBALL UMPIRE FOR LITTLE LEAGUE Primary Care Provider + Encounter Details Date Type Department Care Team (Latest Contact Info) Description 05/05/2017 Emergency Department [facility] EMERGENCY DEPARTMENT [address] [place] [address] Walter Robertson MD [address] [place] [id number] Discharge Disposition: Home or Self Care Social [...] on file documented as of this encounter Last Filed Vital Signs Vital Sign Reading Time Taken Comments Blood Pressure 143/88 05/06/2017 5:31 PM C IRON WORKER Pulse 77 05/06/2017 5:31 PM C IRON WORKER Temperature 36.8 ??C (98.2 ??F) 05/06/2017 5:31 PM CS T Respiratory Rate 16 05/06/2017 5:31 PM C IRON WORKER Oxygen Saturation 100% 05/06/2017 5:31 PM C IRON WORKER Inhaled Oxygen Concentration - - Weight - - Height - - Body Mass Index - - documented in this encounter Discharge Summaries * Trish Bethea PA-C - 05/06/2017 4:12 PM CST Discharge Summaries Signed by Trish Bethea PA-C on 05/06/2017 4:17 PM Author: Trish Bethea PA-C Service: Emergency Author Type: Physician Art Professor Date of Service: 05/06/2017 4:12 PM Filed: 05/06/2017 4:17 PM Note Type: Discharge Summaries Status: Signed Manager Harbor: Trish Bethea PA-C (Physician Art Professor) Cosigner: Walter Robertson MD at 05/06/2017 4:22 PM OBS/CDU Provider Discharge Summary Patient ID: Humza Recio [id number] 67 y.o. 1950 Admit date: 05/05/2017 Discharge date and time: 05/06/17 Admitting Physician: Walter Robertson MD Discharge Physician: Trish Bethea PA-C Present on Admission: ??? Chest pain Discharge Diagnoses: 1. Chest pain Admission Condition: fair Discharged Condition: good Hospital Course: Pt with PMH HTN, COPD, former smoker, admitted to the CDU for chest pain. He describes the pain as crushing , lasting 30 min while at work. After the episode, he had dizziness. He also c/o SOB with exertion. He denies ever having GILBERT, palpitations, nausea, vomiting, diaphoresis. Heis currently asymptomatic. Trop has been neg x3 and EKG unremarkable. CBC and CMP negative. He was seen by cardiology and had a negative stress echo. Cardiology recommended pt be discharged with ASA,lipitor, quinapril, HCTZ. Consults: cardiology Significant Diagnostic Studies: Labs Labs Reviewed VALPROIC ACID TOTAL - Abnormal; Notable for the following: Result Value Valproic Acid, Total 21 (*) All other components within normal limits BASIC METABOLIC PANEL - Abnormal; Notable for the following: Chloride 111 (*) Calcium 8.3 (*) All other components within normal limits CBC WITH DIFFERENTIAL - Abnormal; Notable for the following: Monocytes Abs 0.68 (*) All other components within normal limits CBC WITH DIFFERENTIAL - Abnormal; Notable for the following: Hematocrit 38.5 (*) All other components within normal limits COMPREHENSIVE METABOLIC PANEL - Normal CARBAMAZEPINE TOTAL - Normal TSH - Normal TROPONIN I - Normal TROPONIN I - Normal TROPONIN I - Normal B TYPE NATRIURETIC PEPTIDE (BNP) - Normal TSH - Normal POCT GLUCOSE - Normal CBC W/ DIFFERENTIAL Narrative: The following orders were created for panel order CBC w Differential. Procedure Abnormality Status --------- ------ CBC WITH DIFFERENTIAL[[id number]] Abnormal Final result Please view results for these tests on the individual orders. CBC W/ DIFFERENTIAL Narrative: The following orders were created for panel order CBC w Differential. Procedure Abnormality Status --------- ------ CBC WITH DIFFERENTIAL[[id number]] Abnormal Final result Please view results for these tests on the individual orders. ACCUCHECK GLUCOSE Imaging EL Echo Stress W Dobutamine Final Result EL ECHO STRESS COLOR FLOW & DOPPLER Final Result CT Chest PE Protocol Final Result IMPRESSION: 1. No evidence of pulmonary embolism. 2. No acute pulmonary process. 3. Indeterminate 4 mm right middle lobe subpleural nodule. If the patient is low risk, no follow-upis required. If the patient is high risk, a follow-up CT chest without contrast in 12 months could be considered. 4. Chronic T8 vertebral body compression fracture with 25 percent height loss and no evidence of retropulsion. Dictated by Husam Zhou MD (resident care provider). I, Dr. ESTRADA SANTOS M.D. have personally reviewed and interpreted this examination/study. This report was electronically signed by ESTRADA SANTOS M.D. on 05/06/2017 9:[address] Head Wo Contrast (Results Pending) EL ECHO STRESS W/ CONTRAST (Results Pending) Discharge Exam: BP 132/80 (BP Location: Left arm, Patient Position: Lying) Pulse 67 Temp 98 ??F (36.7 ??C) (Oral) Resp 16 SpO2 96% General: Alert, cooperative, no distress, appears stated age. Head: Normocephalic, without obvious abnormality, atraumatic. Eyes: Conjunctivae/corneas clear. PERRL, EOMs intact. Fundi benign Ears: Normal TMs and external ear canals both ears. Nose: Nares normal. Septum midline. Mucosa normal. No drainage or sinus tenderness. Throat: Lips, mucosa, and tongue normal. Teeth and gums normal. Neck: Supple, symmetrical, trachea midline, no adenopathy, thyroid: no enlargment/tenderness/nodules, no carotid bruit and no JVD. Back: Symmetric, no curvature. ROM normal. No CVA tenderness. Lungs: Clear to auscultation bilaterally. Chest wall: No tenderness or deformity. Heart: Regular rate and rhythm, S1, S2 normal, no murmur, click, rub or gallop. Abdomen: Soft, non-tender. Bowel sounds normal. No masses, No organomegaly. Genitalia: Normal male without lesion, discharge or tenderness. Rectal: Normal tone, normal prostate, no masses or tenderness Guaiac negative stool. Extremities: Extremities normal, atraumatic, no cyanosis or edema. Pulses: 2+ and symmetric all extremities. Skin: Skin color, texture, turgor normal. No rashes or lesions Lymph nodes: Cervical, supraclavicular, and axillary nodes normal. Neurologic: CNII-XII intact. Normal strength, sensation and reflexes throughout. Disposition: home Patient Instructions: Medication List ASK your doctor about these medications atorvastatin 20 MG tablet Commonly known as: LIPITOR carbamazepine 300 MG CR capsule Commonly known as: CARBATROL TAKE 2 CAPSULES BY MOUTH TWICE DAILY fluticasone 50 MCG/ACT Susp Commonly known as: FLONASE montelukast 10 MG tablet Commonly known as: SINGULAIR oxyCODONE-acetaminophen 5-325 MG tablet Commonly known as: PERCOCET quinapril 40 MG tablet Commonly known as: ACCUPRIL valproic acid 250 MG capsule Commonly known as: DEPAKENE TAKE 2 CAPSULES BY MOUTH EVERY MORNING AND 2 CAPSULES BY MOUTH AT NOON AND 5PM THEN 2 CAPSULES BY MOUTH EVERY NIGHT AT BEDTIME VENTOLIN HFA 108 (90 BASE) MCG/ACT inhaler Generic drug: albuterol HFA Patient Instructions None Signed: Trish Bethea PA-C 05/06/2017 C IRON WORKER documented in this encounter Consult Notes * Mario Sadler MD - 05/06/2017 8:47 AM CST Consults Signed by Mario Sadler MD on 05/06/2017 1:53 PM Author: Mario Sadler MD Service: Cardiology Author Type: Resident Date of Service: 05/06/2017 8:47 AM Filed: 05/06/2017 1:53 PM Note Type: Consults Status: Attested Manager Harbor: Mario Sadler MD (Resident) Related Notes: Original Note by Mario Sadler MD (Resident) filed at 05/06/2017 1:51 PM Cosigner: Chanell Davenport MD at 05/06/2017 2:13 PM Attestation signed by Chanell Davenport MD at 05/06/2017 2:13 PM ATTENDING PHYSICIAN NOTE Patient seen and examined with the fellow. I confirm history, exam, assessment and plan. In addition I note: HPI: 67 year old male with hx of COPD and HTN admitted with pressure like CP. This occurred while at rest and lasted about 30-40 minutes and resolved spontaneously. No CP since then. He does have chronic orthopnea which he attributes to COPD. He preveiously had complains with SOB and had a LCH in 2016 which was normal without CAD. Currently he is chest pain free. No LH, dizziness, syncope. His work up included negative trops. ROS: Complete ROS is negative other than what is already noted in the HPI. Exam: BP (!) 173/94 Comment: will inform RN Pulse 81 Temp 97.7 ??F (36.5 ??C) (Oral) Resp 16 AmT298% GENERAL: NAD, AAOx3, obese HEENT: no scleral icterus, EOMI, MMM CARD: RRR. No m/r/g. No JVD. PULM: clear bilaterally; no wheezing or rales GI: soft. NT. EXT: no edema, warm and well perfused NEURO: no focal deficits Medication Review: Current and home meds reviewed in EMR. Please see fellow not for details. PMHx, SgHx, Social Hx, and Family Hx as per Fellow Note - quit smoking about 2 years ago Data Review: Lab Results Component Value Date WBC 6.6 05/06/2017 RBC 4.41 05/06/2017 HGB 13.6 05/06/2017 HCT 38.5 (L) 05/06/2017 NA 144 05/06/2017 K 3.6 05/06/2017 CL 111 (H) 05/06/2017 CO2 22 05/06/2017 BUN 10 05/06/2017 CREATININE 0.7 05/06/2017 CALCIUM 8.3 (L) 05/06/2017 Cardiac markers: Lab Results Component Value Date TROPONINI 0.015 05/06/2017 BNP: Lab Results Component Value Date BNP 78 05/06/2017 ECG: Sinus, no ST T wave ischemic changes TTE: Personally reviewed images; Normal systolic function, EF 55%, LVH LHC: 10/25/2017 OSH report No CAD; elevated right and left filling pressures. 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 Chest pain, resolved 2. COPD 3. HTN - chest pain unlikely to be anginal; possible related to COPD - received OSH cath records - normal [facility] - Stress test today is normal - plan to continue medical therapy; agree with starting statin; check lipid panel - add HCTZ to his home meds for BP; continue home quinipril Please see the fellow's note for further details. Chanell Davenport MD Preschool Principalpin chaser 05/06/2017 2:05 PM [facility] Inpatient Cardiology Consultation Humza Recio, 67 y.o. male : 1950 Admission: 05/05/2017 LOS: 0 Requesting Physician: Remy Real NP Reason For Consult: Chest Pain Chief Complaint: Dizziness and Chest pain History Of Present Illness: Humza Recio is a 67 y.o. male who presented with a chief complaint of chest pain and dizziness.He reports chest pain that began yesterday afternoon that felt like someone sitting on my chest . It began suddenly and lasted one hour. He denies any activity at the time of onset. Pain was 2/10 without radiation. He also noted palpitations. He denied SOB, nausea or vomiting. Patient has never experienced this before. No history of cardiac events. Patient reports shortness of breath after walking two blocks. No chest pain with exertion noted. He denies any tenderness of his chest wall. No history of leg swelling. Does report getting angiogram last year by Dr. Rodriguez, which showed non obstructive CAD History is obtained from the patient Review of Systems: Pertinent positives include: As listed in HPI, palpitations, chest pain, dyspnea on exertion. Denies leg edema, angina, diaphoresis, nausea, emesis. A comprehensive 12 point review of systems was performed and was otherwise negative. Past Medical/Surgical History: Past Medical History: Diagnosis Date ??? Arthritis ??? COPD (chronic obstructive pulmonary disease) ??? High cholesterol ??? Hypertension ??? Seizure Past Surgical History: Procedure Laterality Date ??? HX HERNIA REPAIR x2 Family History: Family History Problem Relation Age of Onset ??? Diabetes - Type 2 Mother ??? Hypertension Mother ??? None Known Father No history of premature coronary artery disease or sudden cardiac Social History: Social History Substance Use Topics ??? Smoking status: Former Smoker Packs/day: 1.00 Years: 15.00 Types: Cigarettes Quit date: 07/2016 ??? Smokeless tobacco: Current User Types: Snuff ??? Alcohol use Yes Comment: occasionaly - every 6 months Medications/Allergies: Scheduled: ??? carBAMazepine XR 600 mg Oral BID ??? furosemide 20 mg Intravenous ONCE ??? atorvastatin 20 mg Oral Daily ??? montelukast 10 mg Oral Daily ??? quinapril 40 mg Oral Daily ??? valproic acid 500 mg Oral QID PRN: Allergies: No Known Allergies I have reviewed all medications and allergies. Physical Exam: Vitals: 05/05/17 2240 05/06/17 0000 05/06/17 0400 05/06/17 0815 BP: 150/89 134/79 136/90 (!) 151/96 BP Location: Right arm Right arm Right arm Right arm Patient Position: Lying Lying Lying Lying Pulse: 81 90 69 64 Resp: 15 14 16 16 Temp: 97.4 ??F (36.3 ??C) 98.1 ??F (36.7 ??C) 97.7 ??F (36.5 ??C) TempSrc: Oral Oral Oral SpO2: 97% 97% 95% 94% There is no height or weight on file to calculate BMI. Intake/Output Summary (Last 24 hours) at 05/06/17 0847 Last data filed at 05/05/17 2300 Gross per 24 hour Intake 2000 ml Output 0 ml Net 2000 ml General: Comfortable, in no acute distress. Occasional shortness of breath during conversation. Neck: Supple, no JVD noted. Heart: RRR, normal S1& S2. No murmurs/gallop. No JVD or carotid bruits. No tenderness over chest wall. Lungs: Clear to auscultation bilaterally. Abdomen: Soft, Nontender, Nondistended, +BS Extremities: Warm, no edema, peripheral pulses +2 throughout Neuro: A&Ox3, grossly non-focal. Data: Lab Results Component Value Date TROPONINI 0.015 05/06/2017 TROPONINI <0.010 05/05/2017 TROPONINI <0.010 05/05/2017 ECG: NSR. No St-t changes ECHO: not available STRESS: not available. CATH: 10/2016 [facility] [place] Mid disease in the RCA 25%. Normal EF 70% Nromal renal artery Mild elevation of right ad left heart pressures. Assessment/Recommendations: 1. Chest pain- possibly cardiac in nature with risk factors and age. Serial EKG's showed no acute NE. Troponins negative. Could be 2/2 to COPD -Dobutamine stress test to risk stratify CAD. If negative - can discharge home from cardiology standpoint. - recent non obstructive CAD on cath - Continue Aspirin 81 mg daily, Lipitor 80 mg daily. Continue Quinapril 40 mg daily 2. Shortness of breath- most likely 2/2 to COPD. -BNP 78 - No signs of CHF noted. No JVD or LE edema. - Recommend outpatient pulm follow up for COPD medication management. 3. Hypertension- uncontrolled -Continue quinapril 40mg -start HCTZ prior to discharge Thank you for involving us in the care of this patient. Please do not hesitate to contact us at anytime for questions or concerns. Case discussed with Dr. Davenport. Mario Sadler Clip On Sunglasses Inspector. Update Echo findings 1. There is concentric remodeling of the left ventricle. The left ventricular cavity size and systolic function are normal with no regional wall motion abnormalities present. The left ventricular ejection fraction is normal, EF 55%. 2. Trace mitral regurgitation. Dobutamine Stress Echo - Did not reveal any regional wall motion abnormalities. No further cardiac work up necessary. Will sign off. Mario Sadler MD Cl[employer] Sunglasses Inspector 05/06/2017 C IRON WORKER documented in this encounter ED Notes * Trish Bethea PA-C - 05/06/2017 8:14 AM CST ED Provider Notes Signed by Trish Bethea PA-C on 05/06/2017 4:12 PM Author: Trish Bethea PA-C Service: Emergency Author Type: Physician Art Professor Date of Service: 05/06/2017 8:14 AM Filed: 05/06/2017 4:12 PM Note Type: ED Provider Notes Status: Signed Manager Harbor: Trish Bethea PA-C (Physician Art Professor) Cosigner: Walter Robertson MD at 05/06/2017 4:22 PM CDU / Outpatient Observation Progress Note Admit Date: 05/05/17 Time of CDU Admission: 2236 Subjective: Interval History Humza Recio is a 67 y.o. male with PMH seizures, HTN, COPD, former smoker, who was transferred to the CDU for evaluation and treatment of chest pain. He describes the pain as crushing , lasting 30 min while at work. After the episode, he had dizziness. He also c/o SOB with exertion. He denies ever having GILBERT, palpitations, nausea, vomiting, diaphoresis. He is currently asymptomatic. Trop has been neg x3 and EKG unremarkable. CBC and CMP negative. The patient's symptoms have been present for 1 day and since that time have been rapidly improving.Symptoms are currently rated as resolved. Symptoms are aggravated by exertion and improved with rest. Past Medical History: Diagnosis Date ??? Arthritis ??? COPD (chronic obstructive pulmonary disease) ??? High cholesterol ??? Hypertension ??? Seizure Family History Problem Relation Age of Onset ??? Diabetes - Type 2 Mother ??? Hypertension Mother ??? None Known Father ([id number]) Current Facility-Administered Medications Medication Dose Route Frequency Provider Last Rate Last Dose ??? carBAMazepine XR (TEGRETOL XR) 12 hour release tablet 600 mg 600 mg Oral BID Remy Real NP ??? atorvastatin (LIPITOR) tablet 20 mg 20 mg Oral Daily Remy Real NP ??? montelukast (SINGULAIR) tablet 10 mg 10 mg Oral Daily Remy Real NP ??? quinapril (ACCUPRIL) tablet 40 mg 40 mg Oral Daily Remy Real NP ??? valproic acid (DEPAKENE) capsule 500 mg 500 mg Oral QID Remy Real NP 500 mg at 05/06/17 0635 Current Outpatient Prescriptions Medication Sig Dispense Refill ??? quinapril (ACCUPRIL) 40 MG tablet Take 1 tablet by mouth Daily. ??? oxyCODONE-acetaminophen (PERCOCET) 5-325 MG tablet Take 1 tablet by mouth Daily as needed. ??? valproic acid (DEPAKENE) 250 MG capsule TAKE 2 CAPSULES BY MOUTH EVERY MORNING AND 2 CAPSULES BY MOUTH AT NOON AND 5PM THEN 2 CAPSULES BY MOUTH EVERY NIGHT AT BEDTIME 240 capsule 5 ??? carbamazepine (CARBATROL) 300 MG CR capsule TAKE 2 CAPSULES BY MOUTH TWICE DAILY 120 capsule 5 ??? VENTOLIN HFA 108 (90 BASE) MCG/ACT inhaler INHALE 2 PUFFS PO EVERY 4 HOURS 4 ??? fluticasone (FLONASE) 50 MCG/ACT Suspension SHAKE LQ AND U 2 SPRAYS IEN QD IN THE ZAHIRA 3 ??? montelukast (SINGULAIR) 10 MG tablet TK 1 T PO QD 5 ??? atorvastatin (LIPITOR) 20 MG Oral tablet No Known Allergies Social History Social History ??? Marital status: Spouse name: N/A ??? Number of children: N/A ??? Years of education: N/A Occupational History ??? Not on file. Social History Main Topics ??? Smoking status: Former Smoker Packs/day: 1.00 Years: 15.00 Types: Cigarettes Quit date: 07/2016 ??? Smokeless tobacco: Current User Types: Snuff ??? Alcohol use Yes Comment: occasionaly - every 6 months ??? Drug use: No ??? Sexual activity: Not on file Other Topics Concern ??? Not on file Social History Narrative Review of Systems Constitutional: negative Eyes: negative Ears, nose, mouth, throat, and face: negative Respiratory: negative Cardiovascular: negative Gastrointestinal: negative Genitourinary:negative Integument/breast: negative Hematologic/lymphatic: negative Musculoskeletal:negative Neurological: negative Behavioral/Psych: negative Objective: Patient Vitals for the past 8 hrs (Last 1 readings): BP Temp Temp src Pulse Resp SpO2 05/06/17 0400 136/90 98.1 ??F (36.7 ??C) Oral 69 16 95 % Intake/Output Summary (Last 24 hours) at 05/06/17 0814 Last data filed at 05/05/17 2300 Gross per 24 hour Intake 2000 ml Output 0 ml Net 2000 ml Physical Exam BP 136/90 (BP Location: Right arm, Patient Position: Lying) Pulse 69 Temp 98.1 ??F (36.7 ??C) (Oral) Resp 16 SpO2 95% General: Alert, cooperative, no distress, appears stated age. Head: Normocephalic, without obvious abnormality, atraumatic. Eyes: Conjunctivae/corneas clear. PERRL, EOMs intact. Fundi benign Ears: Normal TMs and external ear canals both ears. Nose: Nares normal. Septum midline. Mucosa normal. No drainage or sinus tenderness. Throat: Lips, mucosa, and tongue normal. Teeth and gums normal. Neck: Supple, symmetrical, trachea midline, no adenopathy, thyroid: no enlargment/tenderness/nodules, no carotid bruit and no JVD. Back: Symmetric, no curvature. ROM normal. No CVA tenderness. Lungs: Clear to auscultation bilaterally. Chest wall: No tenderness or deformity. Heart: Regular rate and rhythm, S1, S2 normal, no murmur, click, rub or gallop. Abdomen: Soft, non-tender. Bowel sounds normal. No masses, No organomegaly. Extremities: Extremities normal, atraumatic, no cyanosis or edema. Pulses: 2+ and symmetric all extremities. Skin: Skin color, texture, turgor normal. No rashes or lesions Neurologic: CNII-XII intact. Normal strength, sensation and reflexes throughout. Assessment: Active Problems: Chest pain Clinical Impression: 1. Chest pain Plan: Stress test, await recs from cardiology MDM Results: Labs Reviewed VALPROIC ACID TOTAL - Abnormal; Notable for the following: Result Value Valproic Acid, Total 21 (*) All other components within normal limits BASIC METABOLIC PANEL - Abnormal; Notable for the following: Chloride 111 (*) Calcium 8.3 (*) All other components within normal limits CBC WITH DIFFERENTIAL - Abnormal; Notable for the following: Monocytes Abs 0.68 (*) All other components within normal limits CBC WITH DIFFERENTIAL - Abnormal; Notable for the following: Hematocrit 38.5 (*) All other components within normal limits COMPREHENSIVE METABOLIC PANEL - Normal CARBAMAZEPINE TOTAL - Normal TSH - Normal TROPONIN I - Normal TROPONIN I - Normal TROPONIN I - Normal POCT GLUCOSE - Normal CBC W/ DIFFERENTIAL Narrative: The following orders were created for panel order CBC w Differential. Procedure Abnormality Status --------- ------ CBC WITH DIFFERENTIAL[[id number]] Abnormal Final result Please view results for these tests on the individual orders. CBC W/ DIFFERENTIAL Narrative: The following orders were created for panel order CBC w Differential. Procedure Abnormality Status --------- ------ CBC WITH DIFFERENTIAL[[id number]] Abnormal Final result Please view results for these tests on the individual orders. ACCUCHECK GLUCOSE CT Head Wo Contrast (Results Pending) CT Chest PE Protocol (Results Pending) EL Echo Stress W Dobutamine (Results Pending) CDU / OBS course: I assumed care of pt from ALMA Real 0745: discussed with cardiology, no notes or orders placed yet. they have ordered stress test. 1605: stress tests normal. Consults Cardiology consulted. Treatment options were discussed and plan of care agreed upon. Disposition Admitted to CDU Trish Bethea PA-C 05/06/17 1612 C IRON WORKER * Remy Real, BIAS CUTTING MACHINE OPERATOR-BASEBALL UMPIRE FOR LITTLE LEAGUE - 05/06/2017 1:33 AM CST ED Provider Notes Signed by Remy Real NP on 05/06/2017 7:32 AM Author: Remy Real NP Service: Emergency Author Type: Nurse Practitioner Date of Service: 05/06/2017 1:33 AM Filed: 05/06/2017 7:32 AM Note Type: ED Provider Notes Status: Signed Manager Harbor: Remy Real NP (Nurse Practitioner) Cosigner: Walter Robertson MD at 05/06/2017 4:22 PM CDU / Outpatient Observation H&P Admit Date: 05/05/2017 Admit Time: 22:37 HRS Subjective: Patient information was obtained from patient. History/Exam limitations: none. ED Chief Complaint on Presentation Chief Complaint Patient presents with ??? Dizziness pt was at work, just standing, and began feeling like room was spinning. denies any chest pain or SOB History of Present Illness Humza Recio is a 67 y.o. male who is transferred to the observation unit from the emergency department and meets the observation status medical necessity for Chest pain and dizziness. Prior to placement in observation status and assuming care, the patient's PMH, initial presentation and complaints, emergency department evaluation, diagnostic and exam findings, and management were reviewed in consultation with the ED medical provider, Dr. Martínez. The benefits of observation care include extended evaluation and management for the presenting condition. The risks of discharge to home include problem exacerbation. Patient presents to the CDU for evaluation of Chest pain and dizziness. Pt states that the chest pain, dizziness and SOB started around 13:00 and lasted about 30 minutes. Pt describes the pain as crushing . At that time he states he was not dizzy or SOB, but began feeling those symptoms later. [place] that he feels as though the room is spinning when he is walking, or when he stands up. Rated symptoms as moderate when they were occurring. Pt. States that he is currently in no pain, is not dizzy or SOB. Sats 97% on RA. Denies fever, chills, sweats, abdominal pain, n/v/d, muscle weakness. Cardiology was consulted and they recommended a stress test in the AM. Pt is NPO after MN. Patient History Past Medical History: Diagnosis Date ??? Arthritis ??? COPD (chronic obstructive pulmonary disease) ??? High cholesterol ??? Hypertension ??? Seizure Past Surgical History: Procedure Laterality Date ??? HX HERNIA REPAIR x2 Family History Problem Relation Age of Onset ??? Diabetes - Type 2 Mother ??? Hypertension Mother ??? None Known Father ([id number]) Current Facility-Administered Medications Medication Dose Route Frequency Provider Last Rate Last Dose ??? atorvastatin (LIPITOR) tablet 20 mg 20 mg Oral Daily Remy Real NP ??? carBAMazepine XR (TEGRETOL XR) 12 hour release tablet 300 mg 300 mg Oral BID Remy Real NP ??? montelukast (SINGULAIR) tablet 10 mg 10 mg Oral Daily Remy Real NP ??? quinapril (ACCUPRIL) tablet 40 mg 40 mg Oral Daily Remy Real NP ??? valproic acid (DEPAKENE) capsule 500 mg 500 mg Oral QID Remy Real NP Current Outpatient Prescriptions Medication Sig Dispense Refill ??? quinapril (ACCUPRIL) 40 MG tablet Take 1 tablet by mouth Daily. ??? oxyCODONE-acetaminophen (PERCOCET) 5-325 MG tablet Take 1 tablet by mouth Daily as needed. ??? valproic acid (DEPAKENE) 250 MG capsule TAKE 2 CAPSULES BY MOUTH EVERY MORNING AND 2 CAPSULES BY MOUTH AT NOON AND 5PM THEN 2 CAPSULES BY MOUTH EVERY NIGHT AT BEDTIME 240 capsule 5 ??? carbamazepine (CARBATROL) 300 MG CR capsule TAKE 2 CAPSULES BY MOUTH TWICE DAILY 120 capsule 5 ??? VENTOLIN HFA 108 (90 BASE) MCG/ACT inhaler INHALE 2 PUFFS PO EVERY 4 HOURS 4 ??? fluticasone (FLONASE) 50 MCG/ACT Suspension SHAKE LQ AND U 2 SPRAYS IEN QD IN THE ZAHIRA 3 ??? montelukast (SINGULAIR) 10 MG tablet TK 1 T PO QD 5 ??? atorvastatin (LIPITOR) 20 MG Oral tablet No Known Allergies Social History Substance Use Topics ??? Smoking status: Former Smoker Packs/day: 1.00 Years: 15.00 Types: Cigarettes Quit date: 07/2016 ??? Smokeless tobacco: Current User Types: Snuff ??? Alcohol use Yes Comment: occasionaly - every 6 months Review of Systems Constitutional: negative for fevers, chills, sweats and fatigue Eyes: negative for visual disturbance, irritation and redness Respiratory: negative for cough, sputum or dyspnea on exertion Cardiovascular: negative for chest pain, chest pressure/discomfort, dyspnea, palpitations, irregular heart beats, near-syncope, syncope, fatigue, lower extremity edema Gastrointestinal: negative for reflux symptoms, nausea, vomiting and change in bowel habits Genitourinary:negative for frequency, dysuria, nocturia and urinary incontinence Musculoskeletal:negative for myalgias, arthralgias and muscle weakness Neurological: negative for headaches, dizziness, vertigo, paresthesia, tremor and weakness Objective: Patient Vitals for the past 8 hrs (Last 1 readings): BP Temp Temp src Pulse Resp SpO2 05/06/17 0000 134/79 - - 90 14 97 % 05/05/17 2240 150/89 97.4 ??F (36.3 ??C) Oral 81 15 97 % No intake or output data in the 24 hours ending 05/06/17 0134 Physical Exam BP 134/79 (BP Location: Right arm, Patient Position: Lying) Pulse 90 Temp 97.4 ??F (36.3 ??C) (Oral) Resp 14 SpO2 97% General: Alert, cooperative, no distress, appears stated age. Head: Normocephalic, without obvious abnormality, atraumatic. Eyes: Conjunctivae/corneas clear. PERRL. Neck: Supple, symmetrical, trachea midline, no adenopathy, thyroid: no enlargment/tenderness/nodules, no carotid bruit and no JVD. Lungs: Clear to auscultation bilaterally. Chest wall: No tenderness or deformity. Heart: Regular rate and rhythm, S1, S2 normal, no murmur, click, rub or gallop. Abdomen: Soft, non-tender. Bowel sounds normal. No masses, No organomegaly. Extremities: Extremities normal, atraumatic, no cyanosis or edema. Pulses: 2+ and symmetric all extremities. Skin: Skin color, texture, turgor normal. No rashes or lesions Lymph nodes: Cervical, supraclavicular, and axillary nodes normal. Neurologic: CNII-XII grossly intact. Normal strength, sensation and reflexes throughout. Assessment: Active Problems: Chest pain Medical Decision Makin. Chest pain Trend troponins Serial EKG Cardiology consult Stress test in AM NPO after MN CT PE protocol - Indeterminate 4 mm right middle lobe subpleural nodule. If the patient is low risk, no follow-up is required. If the patient is high risk, a follow-up CT chest without contrast in 12 months could be considered. -Age indeterminate T8 compression fracture with 25 percent height loss and no evidence of retropulsion. Clinical correlation for point tenderness is recommended. CT Head - NAIPP [facility] Number of Diagnoses or Management Options Chest pain: Differential diagnosis considered: ACS, costochodritis, anxiety Plan: Trend troponins Serial EKG Cardiology consult Stress test in AM NPO after MN Results: Labs Reviewed VALPROIC ACID TOTAL - Abnormal; Notable for the following: Result Value Valproic Acid, Total 21 (*) All other components within normal limits CBC WITH DIFFERENTIAL - Abnormal; Notable for the following: Monocytes Abs 0.68 (*) All other components within normal limits COMPREHENSIVE METABOLIC PANEL - Normal CARBAMAZEPINE TOTAL - Normal TSH - Normal TROPONIN I - Normal TROPONIN I - Normal POCT GLUCOSE - Normal CBC W/ DIFFERENTIAL Narrative: The following orders were created for panel order CBC w Differential. Procedure Abnormality Status --------- ------ CBC WITH DIFFERENTIAL[[id number]] Abnormal Final result Please view results for these tests on the individual orders. CBC W/ DIFFERENTIAL Narrative: The following orders were created for panel order CBC w Differential. Procedure Abnormality Status --------- ------ CBC WITH DIFFERENTIAL[[id number]] Please view results for these tests on the individual orders. BASIC METABOLIC PANEL TROPONIN I ACCUCHECK GLUCOSE CBC WITH DIFFERENTIAL CT Head Wo Contrast (Results Pending) CT Chest PE Protocol (Results Pending) CDU / OBS course: 1:34 AM: Trend troponins Serial EKG Cardiology consult Stress test in AM NPO after MN Consults Cardiology consulted. Treatment options were discussed and plan of care agreed upon. Orders and Medicine administered during this encounter Orders Placed This Encounter Procedures ??? BED RAIL BUMPERS ??? CT Head Wo Contrast ??? CT Chest PE Protocol ??? CBC w Differential ??? Comprehensive metabolic panel (w/eGFR) ??? Carbamazepine Level, Total ??? Valproic Acid, Total ??? TSH ??? Troponin I ??? Troponin I ??? CBC w Differential ??? Basic Metabolic Panel ??? Troponin I ??? DIET NPO TIME SPECIFIED ??? POCT Glucose ??? Accucheck glucose ??? EKG 12 lead ??? EKG 12 lead ??? EKG 12 lead ??? IV Saline lock ??? Patient to be placed in Outpatient Observation Medications atorvastatin (LIPITOR) tablet 20 mg (not administered) carBAMazepine XR (TEGRETOL XR) 12 hour release tablet 300 mg (not administered) montelukast (SINGULAIR) tablet 10 mg (not administered) quinapril (ACCUPRIL) tablet 40 mg (not administered) valproic acid (DEPAKENE) capsule 500 mg (not administered) NaCl bolus 0.9 % bolus 1,000 mL (0 mLs Intravenous Stopped 05/05/172100) promethazine (PHENERGAN) 12.5 mg in NaCl 0.9 % 50 mL IVPB (0 mg Intravenous Stopped 05/05/172100) albuterol (PROVENTIL,VENTOLIN) nebulizer solution 5 mg (5 mg Inhalation Given 05/05/172021) ipratropium (ATROVENT) 0.02 % nebulizer solution 0.5 mg (0.5 mg Inhalation Given 05/05/172021) albuterol-ipratropium (DUO-NEB) nebulizer solution 3 mL (3 mLs Inhalation Given 05/05/172139) aspirin chewable tablet 324 mg (324 mg Oral Given 05/05/172104) NaCl bolus 0.9 % bolus 1,000 mL (0 mLs Intravenous Stopped 05/05/172319) NaCl bolus 0.9 % bolus 1,000 mL (0 mLs Intravenous Stopped 05/05/172319) meclizine (ANTIVERT) tablet 25 mg (25 mg Oral Given 05/05/172152) iohexol (OMNIPAQUE) 350 MG/ML injection 100 mL (100 mLs Intravenous Given 05/05/172144) CDU / Outpatient OBS Final Diagnosis and Disposition Information Diagnosis 1. Chest pain Prescriptions ED Discharge Orders None Follow-up No follow-up provider specified. Disposition Admitted to CDU Signed off care to MAGDALENE Mckeon NP 05/06/17 0732 C IRON WORKER * Duong Liu MD - 05/05/2017 8:15 PM CST ED Provider Notes Signed by Duong Liu MD on 05/11/2017 5:42 PM Author: Duong Liu MD Service: Emergency Author Type: Physician Date of Service: 05/05/2017 8:15 PM Filed: 05/11/2017 5:42 PM Note Type: ED Provider Notes Status: Signed Manager [place]: Duong Liu MD (Physician) ED Attending Note Interval History: Humza Recio is a 67 y.o. male with a past medical history of HTN, COPD, epilepsy and skin cancer presenting to the ED c/o dizziness, chest pain and SOB that began today around 1:00PM. He reports he was at work when he experienced crushing chest pain that lasted about 30 minutes. At the time he experience no SOB, but later began feeling dizzy and SOB. He states that he feels as if the room is spinning when he walks or stands up. Upon arrival he is experiencing no chest pain and denies sweating, headache, nausea or vomiting. Of note, patient was a chronic smoker until he quit approximately 2 years ago. No other medical concerns at this time. Past Medical History: Diagnosis Date ??? Arthritis ??? COPD (chronic obstructive pulmonary disease) ??? High cholesterol ??? Hypertension ??? Seizure Past Surgical History: Procedure Laterality Date ??? HX HERNIA REPAIR x2 Social History Social History ??? Marital status: Spouse name: N/A ??? Number of children: N/A ??? Years of education: N/A Occupational History ??? Not on file. Social History Main Topics ??? Smoking status: Former Smoker Packs/day: 1.00 Years: 15.00 Types: Cigarettes Quit date: 07/2016 ??? Smokeless tobacco: Current User Types: Snuff ??? Alcohol use Yes Comment: occasionaly - every 6 months ??? Drug use: No ??? Sexual activity: Not on file Other Topics Concern ??? Not on file Social History Narrative Review of Systems: (+) positive All systems negative except as marked. Constitutional: Negative for fever HENT: Negative for sore throat. Eyes: Negative for visual changes Respiratory: Negative for cough, + SOB Cardiovascular: Negative for chest pain, palpitations Gastrointestinal: Negative for abdominal pain, nausea, vomiting, diarrhea Genitourinary: Negative for difficulty urinating, hematuria, dysuria Musculoskeletal: Negative for neck pain, back pain, myalgia Skin: Negative for rash, itching Neurological: Negative for GILBERT, weakness, numbness, tingling, +dizziness Psychiatric: Negative for SI, hallucinations, anxiety Vitals: 05/06/17 1214 05/06/17 1555 05/06/17 1557 05/06/17 1731 BP: (!) 173/94 (!) 145/102 132/80 143/88 BP Location: Left arm Left arm Left arm Patient Position: Lying Lying Sitting Pulse: 81 67 77 Resp: 16 16 16 Temp: 97.7 ??F (36.5 ??C) 98 ??F (36.7 ??C) 98.2 ??F (36.8 ??C) TempSrc: Oral Oral Oral SpO2: 98% 96% 100% Exam: Constitutional: well developed, well nourished, no acute distress HENT: normocephalic, atraumatic, moist oral mucosa, conjunctiva normal, bilateral skin lesions on neck Eyes: PERRL, EOMi Neck: supple, normal ROM Cardiovascular: regular rate and rhythm, no murmur Respiratory: no wheezes, no respiratory distress, mild rhonchi bilaterally Abdomen: soft, non-tender, non-distended Musculoskeletal: no edema or deformities Skin: warm, dry, no lesions Neurological: awake, alert&Ox4, moving all extremities, no focal motor/sensation deficits. Psychiatric: mood and affect normal Medical Decision Makin. SOB Differential diagnosis considered: PE vs ACS vs COPD exacerbation vs other Plan: CT Chest P-Protocol, place in CDU for further evaluation Results: Labs Reviewed VALPROIC ACID TOTAL - Abnormal; Notable for the following: Result Value Valproic Acid, Total 21 (*) All other components within normal limits BASIC METABOLIC PANEL - Abnormal; Notable for the following: Chloride 111 (*) Calcium 8.3 (*) All other components within normal limits CBC WITH DIFFERENTIAL - Abnormal; Notable for the following: Monocytes Abs 0.68 (*) All other components within normal limits CBC WITH DIFFERENTIAL - Abnormal; Notable for the following: Hematocrit 38.5 (*) All other components within normal limits COMPREHENSIVE METABOLIC PANEL - Normal CARBAMAZEPINE TOTAL - Normal TSH - Normal TROPONIN I - Normal TROPONIN I - Normal TROPONIN I - Normal B TYPE NATRIURETIC PEPTIDE (BNP) - Normal TSH - Normal POCT GLUCOSE - Normal CBC W/ DIFFERENTIAL Narrative: The following orders were created for panel order CBC w Differential. Procedure Abnormality Status --------- ------ CBC WITH DIFFERENTIAL[[id number]] Abnormal Final result Please view results for these tests on the individual orders. CBC W/ DIFFERENTIAL Narrative: The following orders were created for panel order CBC w Differential. Procedure Abnormality Status --------- ------ CBC WITH DIFFERENTIAL[[id number]] Abnormal Final result Please view results for these tests on the individual orders. ACCUCHECK GLUCOSE EL Echo Stress W Dobutamine Final Result EL ECHO STRESS COLOR FLOW & DOPPLER Final Result CT Chest PE Protocol Final Result IMPRESSION: 1. No evidence of pulmonary embolism. 2. No acute pulmonary process. 3. Indeterminate 4 mm right middle lobe subpleural nodule. If the patient is low risk, no follow-upis required. If the patient is high risk, a follow-up CT chest without contrast in 12 months could be considered. 4. Chronic T8 vertebral body compression fracture with 25 percent height loss and no evidence of retropulsion. Dictated by Husam Zhou MD (resident care provider). I, Dr. ESTRADA SANTOS M.D. have personally reviewed and interpreted this examination/study. This report was electronically signed by ESTRADA SANTOS M.D. on 05/06/2017 9:[address] Head Wo Contrast (Results Pending) EL ECHO STRESS W/ CONTRAST (Results Pending) ED course: The patient's Oxygen Saturation Monitor was interpreted by me. The reading was 96%. The patient wason RA at the time of the reading. This is interpreted as normal. Progress Notes: 10:00PM Discussed all the pertinent aspects of the case with Cardiology who agreed to place place patient in CDU over night for observation. Will stress test in the morning and admit based on results. Consult Yes Procedure done at this time No Ultrasound done at this time No Orders and Medicine administered during this encounter: Orders Placed This Encounter Procedures ??? BED RAIL BUMPERS ??? CT Head Wo Contrast ??? CT Chest PE Protocol ??? CBC w Differential ??? Comprehensive metabolic panel (w/eGFR) ??? Carbamazepine Level, Total ??? Valproic Acid, Total ??? TSH ??? Troponin I ??? Troponin I ??? CBC w Differential ??? Basic Metabolic Panel ??? Troponin I ??? BNP (Brain Natriuretic Peptide) ??? TSH ??? SPECIAL TRAY REQUEST ??? POCT Glucose ??? Accucheck glucose ??? EKG 12 lead ??? EKG 12 lead ??? EKG 12 lead ??? EL Echo Stress W Dobutamine ? ? EL ECHO STRESS COLOR FLOW & DOPPLER ??? EL ECHO STRESS W/ CONTRAST ??? Patient to be placed in Outpatient Observation Medications NaCl bolus 0.9 % bolus 1,000 mL (0 mLs Intravenous Stopped 05/05/172100) promethazine (PHENERGAN) 12.5 mg in NaCl 0.9 % 50 mL IVPB (0 mg Intravenous Stopped 05/05/172100) albuterol (PROVENTIL,VENTOLIN) nebulizer solution 5 mg (5 mg Inhalation Given 05/05/172021) ipratropium (ATROVENT) 0.02 % nebulizer solution 0.5 mg (0.5 mg Inhalation Given 05/05/172021) albuterol-ipratropium (DUO-NEB) nebulizer solution 3 mL (3 mLs Inhalation Given 05/05/172139) aspirin chewable tablet 324 mg (324 mg Oral Given 05/05/172104) NaCl bolus 0.9 % bolus 1,000 mL (0 mLs Intravenous Stopped 05/05/172319) NaCl bolus 0.9 % bolus 1,000 mL (0 mLs Intravenous Stopped 05/05/172319) meclizine (ANTIVERT) tablet 25 mg (25 mg Oral Given 05/05/172152) iohexol (OMNIPAQUE) 350 MG/ML injection 100 mL (100 mLs Intravenous Given 05/05/172144) furosemide (LASIX) injection 20 mg (20 mg Intravenous Given 05/06/17 09) hydroCHLOROthiazide (HYDRODIURIL) tablet 25 mg (25 mg Oral Given 05/06/171707) Clinical Impression: 1. Chest pain 2. Tobacco use disorder 3. Complex partial seizures with consciousness impaired 4. Unspecified essential hypertension 5. Encounter for monitoring anticonvulsant therapy Scripts: ED Discharge Orders Start Ordered 05/06/17 0000 atorvastatin (LIPITOR) 80 MG tablet NIGHTLY 05/06/17 1621 05/06/17 0000 aspirin chewable 81 MG tablet DAILY 05/06/17 1621 05/06/17 0000 hydroCHLOROthiazide (HYDRODIURIL) 25 MG tablet DAILY 05/06/171620 Disposition: discharge Follow-up: Follow-up Information Follow up with JOVANNA Li NP. Specialty: Nurse Practitioner Contact information: [address] [place] [id number] By signing my name below, I, Ela Ojeda, attest that this documentation has been prepared under the direction and in the presence of Dr. Liu. Signed: Norm Vargas. Date: 05/11/2017. Time:8:15 PM. Patient seen and examined with resident. I confirm history, exam, assessment and plan. See my note.\ I, Dr. Liu, personally performed the services described in this documentation. All medical record entries made by the scribe were at my direction and in my presence. I have reviewed the chart and agree that the record reflects my personal performance is and is accurate and complete. Electronically Signed: Dr. Liu. Duong Liu MD 05/11/17 1742 C IRON WORKER documented in this encounter Plan of Treatment Not on file documented as of this encounter Procedures Procedure Name Priority Date/Time Associated Diagnosis Comments B-TYPE NATRIURETIC PEPTIDE STAT 05/06/2017 9:03 AM C IRON WORKER TSH Routine 05/06/2017 9:03 AM C IRON WORKER TROPONIN I Routine 05/06/2017 3:12 AM C IRON WORKER BASIC METABOLIC PANEL (CALCIUM TOTAL) Routine 05/06/2017 3:12 AM C IRON WORKER CBC W AUTO DIFFERENTIAL Routine 05/06/2017 3:12 AM C IRON WORKER CBC W AUTO DIFFERENTIAL Routine 05/06/2017 3:12 AM C IRON WORKER ECHO STRESS W DOBUTAMINE Routine 05/06/2017 12:00 AM C IRON WORKER ECHO STRESS COLOR FLOW AND DOPPLER Routine 05/06/2017 12:00 AM C IRON WORKER EKG 12-LEAD Routine 05/06/2017 12:00 AM C IRON WORKER GLUCOSE - POINT OF CARE (AMB) [facility] Routine 05/05/2017 9:44 PM C IRON WORKER GLUCOSE - POINT OF CARE (AMB) [facility] Routine 05/05/2017 9:44 PM C IRON WORKER GLUCOSE ACCUCHECK Routine 05/05/2017 9:4 [address] ANGIO CHEST PULM EMBOLISM STAT 05/05/2017 9:32 PM C IRON WORKER TROPONIN I STAT 05/05/2017 9:[address] HEAD WO CONTRAST STAT 05/05/2017 6 :53 PM C IRON WORKER TROPONIN I STAT 05/05/2017 4:36 PM C IRON WORKER TSH Routine 05/05/2017 4:36 PM C IRON WORKER CBC W AUTO DIFFERENTIAL STAT 05/05/2017 4:36 PM C IRON WORKER COMPREHENSIVE METABOLIC PANEL STAT 05/05/2017 4:36 PM C IRON WORKER VALPROIC ACID LEVEL Routine 05/05/2017 4 :36 PM C IRON WORKER CARBAMAZEPINE LEVEL TOTAL Routine 05/05/2017 4:36 PM C IRON WORKER CBC W AUTO DIFFERENTIAL STAT 05/05/2017 4:36 PM C IRON WORKER EKG 12-LEAD Routine 05/05/2017 12:00 AM C IRON WORKER EKG 12-LEAD Routine 05/05/2017 12:00 AM C IRON WORKER documented in this encounter Results * B-TYPE NATRIURETIC PEPTIDE (05/06/2017 9:03 AM C IRON WORKER) BNP 78 See Comment pg/mL [facility] Comment: A decision threshold of 100 pg/mL [...] BLOOD SPECIMEN / Unknown 05/06/2017 9:03 AM C IRON WORKER 05/06/2017 9:12 AM C IRON WORKER Walter Robertson MD LAB - CHEMISTRY CELESTE ANGLIN Performing Organization Address [facility] de Phone Number [address] [phone] * TSH (05/06/2017 9:03 AM C IRON WORKER) TSH 0.445 0.350 - 4.940 uIU/mL [facility] Blood specimen (specimen) BLOOD SPECIMEN / Unknown 05/06/2017 9:03 AM C IRON WORKER 05/06/2017 9:12 AM C IRON WORKER Walter Robertson MD LAB - CHEMISTRY CELESTE ANGLIN Performing Organization Address [facility] de Phone Number [address] [phone] * TROPONIN I (05/06/2017 3:12 AM C IRON WORKER) [facility] Troponin I 0.015 <0.032 ng/mL [facility] Blood specimen (specimen) BLOOD SPECIMEN / Unknown 05/06/2017 3:12 AM C IRON WORKER 05/06/2017 3:42 AM C IRON WORKER Walter Robertson MD LAB - CHEMISTRY CELESTE ANGLIN Performing Organization Address City/[facility]/ZIP Co de Phone Number [address] [phone] * (ABNORMAL) BASIC METABOLIC PANEL (CALCIUM TOTAL) (05/06/2017 3:12 AM C IRON WORKER) [facility] BUN 10 7 - 26 mg/dL [facility] Creatinine 0.7 0.6 - 1.2 mg/dL [facility] Sodium 144 136 - 145 mmol/L [facility] Potassium 3.6 3.5 - 4.5 mmol/L [facility] Chloride 111(H) 98 - 107 mmol/L [facility] CO2 22 22 - 29 mmol/L [facility] Glucose 113 70 - 115 mg/dL [facility] Calcium 8.3(L) 8.4 - 10.2 mg/dL [facility] Anion Gap 15 8 - 18 [facility] BUN/Creatinine Ratio 14 7 - 23 [facility] Osmolality Calculated 298 270 - 300 mOsm/kg [facility] eGFR >60 >60 mL/min/1.7 3 m2 [facility] Blood specimen (specimen) BLOOD SPECIMEN / Unknown 05/06/2017 3:12 AM C IRON WORKER 05/06/2017 3:42 AM C IRON WORKER Walter Robertson MD LAB - CHEMISTRY CELESTE ANGLIN [address] [phone] * (ABNORMAL) CBC W AUTO DIFFERENTIAL (05/06/2017 3:12 AM C IRON WORKER) WBC 6.6 3.5 - 10.5 10? 3 /uL [facility] RBC 4.41 4.30 - 5.70 10? 6 /uL [facility] Hemoglobin 13.6 13.5 - 17.5 g/dL [facility] Hematocrit 38.5(L) 39.0 - 50.0 % [facility] MCV 87.3 81.0 - 97.0 fL [facility] MCH 30.8 28.0 - 34.0 pg [facility] MCHC 35.3 32.0 - 36.0 g/dL [facility] Platelet Count 177 150 - 400 10? 3 /uL [facility] RDW-SD 40.3 36.0 - 50.0 fL [facility] RDW-CV 12.5 11.2 - 14.8 % [facility] MPV 10.7 9.3 - 12.8 fL [facility] nRBC Absolute 0.00 0 10? 3 /uL [facility] nRBC Auto 0.0 0 /100 WBC [facility] Neutrophils % 53.2 35.0 - 70.0 % [facility] Lymphocytes % 36.2 19.7 - 55.1 % [facility] Monocytes % 7.7 3.0 - 15.0 % [facility] Eosinophils % 2.6 0.0 - 6.0 % [facility] Basophil % 0.3 0.0 - 1.5 % [facility] Neutrophils Absolute 3.5 1.6 - 7.0 10? 3 /uL [facility] Lymphocyte Absolute 2.4 0.8 - 2.9 10? 3 /uL [facility] Monocytes Absolute 0.51 0.14 - 0.66 10? 3 /uL [facility] Eosinophils Absolute 0.17 0.00 - 0.22 10? 3 /uL [facility] Basophils Absolute 0.02 0.00 - 0.06 10? 3 /uL [facility] Immature Granulocytes % 0.2 0.0 - 1.0 % [facility] Blood specimen (specimen) BLOOD SPECIMEN / Unknown 05/06/2017 3:12 AM C IRON WORKER 05/06/2017 3:42 AM C IRON WORKER Walter Robertson MD LAB - HEMATOLOGY ORD ERABLES Performing Organization Address [facility]/ZIP Co de Phone Number [facility] [address] [phone] * CBC W AUTO DIFFERENTIAL (05/06/2017 3:12 AM C IRON WORKER) Blood specimen (specimen) BLOOD SPECIMEN / Unknown 05/06/2017 3:12 AM C IRON WORKER Narrative [facility] - 05/06/2017 3:45 AM C IRON WORKER The following orders were created for panel order CBC w Differential. Procedure ? Abnormality ? Status ? --------- ? ------ ? CBC WITH DIFFERENTIAL[[id number]] ? Abnormal ?Final result ? Please view results for these tests on the individual orders. Walter Robertson MD LAB - HEMATOLOGY YOGESH PARKS Performing Organization Address [facility] Co de Phone Number [facility] [address] * ECHO STRESS TEST W DOBUTAMINE (05/06/2017 12:00 AM C IRON WORKER) Anatomical Region Laterality Modality Other 05/06/2017 Walter Robertson MD ECHOCARDIOGRAPHY RAD IANT * ECHO STRESS COLOR FLOW AND DOPPLER (05/06/2017 12:00 AM C IRON WORKER) Anatomical Region Laterality Modality Other 05/06/2017 Walter Robertson MD ECHOCARDIOGRAPHY RAD IANT * EKG 12-LEAD (05/06/2017 12:00 AM C IRON WORKER) EKG [facility] Comment: Exam Date/Time: ?? May 06 [...] change was found Confirmed by BELINDA.KATI FLORES ([id number]), editor city OLIVIA NICKERSON ([id number]) on 05/07/2017 1:26:08 PM Referred By: REFERRING NO ? Confirmed By:KATI TREVINO. 05/06/2017 Walter Robertson MD ECG ORDERABLES Performing Organization Address City/[facility]/ZIP Co de Phone Number [facility] * GLUCOSE - POINT OF CARE (AMB) [facility] (05/05/2017 9:44 PM C IRON WORKER) Duong Liu MD LAB - POINT OF CARE ORDERABLES Performing Organization Address [facility]/ZIP Co de Phone Number [facility] RADIOLOGY * GLUCOSE - POINT OF CARE (AMB) [facility] (05/05/2017 9:44 PM C IRON WORKER) Glucose, Fingerstick defer to upload [facility] Capillary blood specimen (specimen) 05/05/2017 9:44 PM C IRON WORKER Duong Liu MD LAB - POINT OF CARE ORDERABLES Performing Organization Address [facility]/ZIP Co de Phone Number [address] * GLUCOSE ACCUCHECK (05/05/2017 9:43 PM C IRON WORKER) Glucose, Fingerstick 96 70-115mg/d L mg/dL [facility] RALS (BEAKER) Comment:Human Machine Interface Engineer: KING [place] 05/05/2017 9:43 PM C IRON WORKER Sky Llanos MD LAB - CHEMISTRY CELESTE ANGLIN [facility]) * CT ANGIO CHEST PULM EMBOLISM (05/05/2017 9:32 PM C IRON WORKER) Anatomical Region Laterality Modality Chest Other Impressions 05/06/2017 9:00 AM C IRON WORKER IMPRESSION: 1. No evidence of pulmonary embolism. [...] of retropulsion. Dictated by Husam Zhou MD (resident care provider). I, Dr. ESTRADA SANTOS M.D. have personally reviewed and interpreted this examination/study. This report was electronically signed by ESTRADA SANTOS M.D. ??on 05/06/2017 9:00 AM . Narrative 05/06/2017 9:00 AM C IRON WORKER EXAMINATION: Computed tomography (CT) of the chest [...] of retropulsion. Dictated by Husam Zhou MD (resident care provider). I, Dr. ESTRADA SANTOS M.D. have personally reviewed and interpreted thisexamination/study. This report was electronically signed by ESTRADA SANTOS M.D. on05/06/2017 9:00 AM . Duong Liu MD CT ORDERABLES * TROPONIN I (05/05/2017 9:08 PM C IRON WORKER) Troponin I <0.010 <0.032 ng/mL [facility] Blood specimen (specimen) BLOOD SPECIMEN / Unknown 05/05/2017 9:08 PM C IRON WORKER 05/05/2017 9:13 PM C IRON WORKER Duong Liu MD LAB - CHEMISTRY CELESTE ANGLIN [facility] Organization Address City/State/[facility] Co de Phone Number [address] [phone] * CT HEAD WO CONTRAST (05/05/2017 6:53 PM C IRON WORKER) Anatomical Region Laterality Modality Head Other Impressions 05/06/2017 7:27 AM C IRON WORKER IMPRESSION: 1. No acute intracranial process. 2. Minimal mucosal thickening of the sphenoid sinus posteriorly on the right side. This report was electronically signed by BRODY WADE ??on 05/06/2017 7:27 AM . Narrative 05/06/2017 7:27 AM C IRON WORKER EXAMINATION: Computed tomography (CT) of the head [...] . Ronaldo Casillas MD CT ORDERABLES * TROPONIN I (05/05/2017 4:36 PM C IRON WORKER) Troponin I <0.010 <0.032 ng/mL [facility] Blood specimen (specimen) BLOOD SPECIMEN / Unknown 05/05/2017 4:36 PM C IRON WORKER 05/05/2017 4:44 PM C IRON WORKER Ronaldo Casillas MD LAB - CHEMISTRY CELESTE ANGLIN [facility] Organization Address City/State/ZIP Co de Phone Number [address] [phone] * TSH (05/05/2017 4:36 PM C IRON WORKER) TSH 0.406 0.350 - 4.940 uIU/mL [facility] Blood specimen (specimen) BLOOD SPECIMEN / Unknown 05/05/2017 4:36 PM C IRON WORKER 05/05/2017 4:44 PM C IRON WORKER Ronaldo Casillas MD LAB - CHEMISTRY CELESTE ANGLIN [facility] Organization Address City/State/ZIP Co de Phone Number [facility] [address] [phone] * (ABNORMAL) CBC W AUTO DIFFERENTIAL (05/05/2017 4:36 PM C IRON WORKER) WBC 7.2 3.5 - 10.5 10? 3 /uL [facility] RBC 4.87 4.30 - 5.70 10? 6 /uL [facility] Hemoglobin 15.2 13.5 - 17.5 g/dL [facility] Hematocrit 43.1 39.0 - 50.0 % [facility] MCV 88.5 81.0 - 97.0 fL [facility] MCH 31.2 28.0 - 34.0 pg [facility] MCHC 35.3 32.0 - 36.0 g/dL [facility] Platelet Count 191 150 - 400 10? 3 /uL [facility] RDW-SD 39.2 36.0 - 50.0 fL [facility] RDW-CV 12.3 11.2 - 14.8 % [facility] MPV 10.4 9.3 - 12.8 fL [facility] nRBC Absolute 0.00 0 10? 3 /uL [facility] nRBC Auto 0.0 0 /100 WBC [facility] Neutrophils % 54.1 35.0 - 70.0 % [facility] Lymphocytes % 33.8 19.7 - 55.1 % [facility] Monocytes % 9.4 3.0 - 15.0 % [facility] Eosinophils % 2.1 0.0 - 6.0 % [facility] Basophil % 0.6 0.0 - 1.5 % [facility] Neutrophils Absolute 3.9 1.6 - 7.0 10? 3 /uL [facility] Lymphocyte Absolute 2.4 0.8 - 2.9 10? 3 /uL [facility] Monocytes Absolute 0.68(H) 0.14 - 0.66 10? 3 /uL [facility] Eosinophils Absolute 0.15 0.00 - 0.22 10? 3 /uL [facility] Basophils Absolute 0.04 0.00 - 0.06 10? 3 /uL [facility] Immature Granulocytes % 0.1 0.0 - 1.0 % [facility] Blood specimen (specimen) BLOOD SPECIMEN / Unknown 05/05/2017 4:36 PM C IRON WORKER 05/05/2017 4:44 PM C IRON WORKER Narrative Authorizing Provider Result Rabia Casillas MD LAB - HEMATOLOGY ORD ERABLES [address] [phone] * (ABNORMAL) VALPROIC ACID LEVEL (05/05/2017 4:36 PM C IRON WORKER) Valproic Acid Total 21(L) 50 - 100 mcg/mL [facility] Blood specimen (specimen) BLOOD SPECIMEN / Unknown 05/05/2017 4:36 PM C IRON WORKER 05/05/2017 4:44 PM C IRON WORKER Narrative Authorizing Provider Result Rabia Casillas MD LAB - CHEMISTRY CELESTE ANGLIN Performing Organization Address City/[facility]/ZIP Co de Phone Number [address] [phone] * CARBAMAZEPINE LEVEL TOTAL (05/05/2017 4:36 PM C IRON WORKER) Carbamazepine, trough 9.3 4.0 - 12.0 mcg/mL [facility] Blood specimen (specimen) BLOOD SPECIMEN / Unknown 05/05/2017 4:36 PM C IRON WORKER 05/05/2017 4:44 PM C IRON WORKER Narrative Authorizing Provider Result Rabia Casillas MD LAB - CHEMISTRY CELESTE ANGLIN [address] [phone] * COMPREHENSIVE METABOLIC PANEL (05/05/2017 4:36 PM C IRON WORKER) BUN 15 7 - 26 mg/dL [facility] Creatinine 0.8 0.6 - 1.2 mg/dL [facility] Sodium 143 136 - 145 mmol/L [facility] Potassium 3.6 3.5 - 4.5 mmol/L [facility] Chloride 107 98 - 107 mmol/L [facility] CO2 23 22 - 29 mmol/L [facility] Glucose 87 70 - 115 mg/dL [facility] Calcium 9.1 8.4 - 10.2 mg/dL [facility] Protein Total 7.2 6.0 - 8.3 g/dL [facility] Albumin 3.7 3.4 - 5.0 g/dL [facility] Bilirubin Total 0.2 0.2 - 1.2 mg/dL [facility] Alkaline Phosphatase 104 40 - 150 Units/L [facility] ALT 18 0 - 55 Units/L [facility] AST 14 5 - 34 Units/L [facility] Anion Gap 17 8 - 18 [facility] BUN/Creatinine Ratio 19 7 - 23 [facility] Osmolality Calculated 296 270 - 300 mOsm/kg [facility] Albumin/Globulin Ratio 1.1 1.1 - 2.3 [facility] eGFR >60 >60 mL/min/1.7 3 m2 [facility] Blood specimen (specimen) BLOOD SPECIMEN / Unknown 05/05/2017 4:36 PM C IRON WORKER 05/05/2017 4:44 PM C IRON WORKER Ronaldo Casillas MD LAB - CHEMISTRY CELESTE ANGLIN [facility] Organization Address City/State/[facility] Co de Phone Number [address] [phone] * CBC W AUTO DIFFERENTIAL (05/05/2017 4:36 PM C IRON WORKER) Blood specimen (specimen) BLOOD SPECIMEN / Unknown 05/05/2017 4:36 PM C IRON WORKER Narrative [facility] - 05/05/2017 4:46 PM C IRON WORKER The following orders were created for panel order CBC w Differential. Procedure ? Abnormality ? Status ? --------- ? ------ ? CBC WITH DIFFERENTIAL[[id number]] ? Abnormal ?Final result ? Please view results for these tests on the individual orders. Ronaldo Casillas MD LAB - HEMATOLOGY ORD ERABLES Performing Organization Address [facility] de Phone Number [place] [phone] [address] * EKG 12-LEAD (05/05/2017 12:00 AM C IRON WORKER) Pathologist [facility] RADIOLOGY Comment: Exam Date/Time: ?? May 05 2017 20:49:18 Test Reason : chest pain Blood Pressure : / mmHG Vent. Rate : 084 BPM ? Atrial Rate : 084 BPM ?? P-R Int : 164 ms ?QRS Dur : 094 ms ?QT Int : 384 ms ? P-R-T Axes : 029 031 030 degrees ?? QTc Int : 453 ms Normal sinus rhythm Normal ECG When compared with ECG of 05-MAY-2017 14:54, No significant change was found Confirmed by BELINDA.KATI FLORES ([id number]), editor city OLIVIA NICKERSON ([id number]) on 05/07/2017 1:26:05 PM Referred By: REFERRING NO ? Confirmed By:KATI COELHO 05/05/2017 Duong Liu MD ECG ORDERABLES Performing Organization Address [facility] de Phone Number [facility] * EKG 12-LEAD (05/05/2017 12:00 AM C IRON WORKER) EKG [facility] RAD[facility]OLOG[facility] Comment: Exam Date/Time: ?? May 05 2017 14:54:05 Test Reason : chest pain weakness Blood Pressure : / mmHG Vent. Rate : 087 BPM ? Atrial Rate : 087 BPM ?? P-R Int : 156 ms ?QRS Dur : 094 ms ?QT Int : 352 ms ? P-R-T Axes : 037 060 042 degrees ?? QTc Int : 423 ms Normal sinus rhythm Normal ECG No previous ECGs available Confirmed by BELINDA.KATI FLORES ([id number]), editor city OLIVIA NICKERSON ([id number]) on 05/07/2017 1:25:22 PM Referred By: REFERRING NO ? 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
--- OUTSIDE RECORDS SUMMARY | 2024-03-22 20:44 | XMS_ITS | Encounter Summary ---
Author Organization [facility] Address [address] [place] [address] Care Team Providers Care Power Sweeper Operator Name Role Phone Kelsie Toure ALFRED Primary Care Provider + Reason for Visit * Reason Onset Date Comments MEDICATION REFILL 01/08/2018 Encounter Details Date Type Department Care Team (Late st Contact Info) Description 01/08/2018 Refill [facility] [address] [place] [address] Julio Aaron APRN-CNP [address] [place] [phone] MEDICATION REFILL Social History Tobacco Use Types Packs/Day Years [...] encounter Miscellaneous Notes * Telephone Encounter - Julio Aaron APRN-CNP - 01/08/2018 4:27 PM CDT Refill request received. Carbamazepine refilled 30 days with one refill. Per last note, He was planning to follow up with PCP for sz management so he might be following up with PCP. If not then needs to be seen here for further refills. documented in this encounter Plan of Treatment Not on file documented as of this encounter Visit Diagnoses Not on filedocumented in this encounter Care Teams Power Sweeper Operator Relationship Specialty Start Date End Date Kelsie Toure APRN-CNP [address] [place] [address] PCP - General Nurse Practitioner 08/13/16 03/03/18 documented as of this encounter
--- OUTSIDE RECORDS SUMMARY | 2024-03-22 20:44 | XMS_ITS | Encounter Summary ---
Author Organization [facility] Address [address] [facility] [place] [address] Care Team Providers Care Rehabilitation Assistant Name Role Phone Annabelle Donald MD Primary Care Provider Reason for Visit * Reason Onset Date Comments MEDICATION REFILL 02/05/2019 Encounter Details Date Type Department Care Team (Late st Contact Info) Description 02/05/2019 Refill [facility] [address] [place] [address] Julio Aaron, OPTICAL INSTRUMENT SPECIALIST-POLICE CAPTAIN SENIOR [address] [phone] MEDICATION REFILL Social History Tobacco Use Types [...] w cmplx part sz, notintrac, wo status ([facility]) Localization-related (focal) (partial) epilepsy and epileptic syndromes with complex partial seizures, without mention of intractable epilepsy Essential (primary) hypertension Unspecified essential hypertension Medication monitoring encounter Encounter for therapeutic drug monitoring documented in this encounter Care Teams Rehabilitation Assistant Relationship Specialty Start Date End Date Annabelle Donald MD [address] [phone] PCP - General 03/04/18 documented as of this encounter
--- OUTSIDE RECORDS SUMMARY | 2024-03-22 20:44 | XMS_ITS | Encounter Summary ---
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, notintrac, wo status (HCC) (Primary Dx); Essential (primary) hypertension; Medication monitoring encounter Social [...] Comments Blood Pressure 150/86 04/01/2019 3:08 PM INSURANCE DEFENSE ATTORNEY Pulse 75 04/01/2019 3:08 PM INSURANCE DEFENSE ATTORNEY Temperature - - Respiratory Rate - - Oxygen Saturation - - Inhaled Oxygen Concentration - - Weight 100.2 kg (221 lb) 04/01/2019 3:08 PM INSURANCE DEFENSE ATTORNEY Height 177.8 cm (5' 10 ) 04/01/2019 3:08 PM INSURANCE DEFENSE ATTORNEY Body Mass Index 31.71 04/01/2019 3:08 PM INSURANCE DEFENSE ATTORNEY documented in this encounter Progress Notes * Julio Aaron, MISTY-TRAINING DESIGNER - 04/01/2019 3:26 PM CST Neurology Clinic Follow Up Note Date of Encounter: 04/01/2019 STEPHANIE: 03/11/2018 Chief Complaint: follow up- Sz History obtained from chart review and patient History of Present Illness: I had the pleasure of seeing Humza Recio in Neurology clinic today.Humza Recio is a 69 year old male with PMHx significant for chronic back pain, HTN, HLD, COPD, and Seizures. Patient has a h/o seizures since teenage. Reports he is seizures free for >30 years. Does not remember when was last seizure. Unknown seizure semiology. CTH from 2018 was normal. Currently on Depakote 500 mg QID (250 mg x 2) and carbamazepine ER 300 mg 2 capsule = 600 BID. Tolerating medications well. Needs refills. Lab work from last visit is pending. Does not smoke but drink ETOH occasionally. Lives with . Patient drives. 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 Has a h/o chronic back pain and under care at pain clinic. Does not have list of medications and does not know the names of meds. Denies any other neurological problems today. Review of Systems: Items of pertinence are discussed above. CONSTITUTIONAL: The patient's weight has not changed recently and appetite has been fair. ENT: no dental or swallowing problems CARDIAC: no chest pain or palpitations PULMONARY: no shortness of breath, cough or sputum production GI: no abdominal pain or change in bowel habits : no change in bladder habits ENDOCRINE: no problems MUSCULOSKELETAL: positive for back pain HEMATOLOGICAL: No history of malignancy or blood abnormalities NEUROLOGIC: As discussed in the history of present illness PSYCHIATRIC: No depression or mood problems. Allergies: No Known Allergies Home Medications: Current Outpatient Medications Medication Sig ??? albuterol HFA (VENTOLIN HFA) 108 (90 BASE) MCG/ACT inhaler INHALE 2 PUFFS PO Q 4 H ??? atorvastatin (LIPITOR) 20 MG tablet ??? carBAMazepine ER 12hr (CARBATROL) 300 MG capsule Take 2 capsules twice a day ??? diclofenac sodium EC (VOLTAREN) 50 MG tablet ??? hydroCHLOROthiazide (HYDRODIURIL) 12.5 MG TK 1 T PO QD ??? HYDROcodone-acetaminophen (NORCO) 5-325 MG tablet TK 1 T PO Q 6 TO 8 H ??? ibuprofen (MOTRIN) 800 MG tablet TK 1 T PO TID ??? loratadine (CLARITIN) 10 MG tablet TK 1 T PO QD PRN FOR 30 DAYS ??? meloxicam (MOBIC) 15 MG tablet meloxicam 15 mg tablet ??? quinapril (ACCUPRIL) 10 MG tablet TK 1 T PO QD ??? tiotropium (SPIRIVA RESPIMAT) 2.5 MCG/ACT inhaler INHALE 2 PUFFS PO QD ??? valproic acid (DEPAKENE) 250 MG capsule TAKE 2 CAPSULES BY MOUTH EVERY MORNING AND 2 CAPSULES BY MOUTH AT NOON AND 5PM THEN 2 CAPSULES BY MOUTH EVERY NIGHT AT BEDTIME No current facility-administered medications for this visit. PMH: Past Medical History: Diagnosis Date ??? COPD (chronic obstructive pulmonary disease) ??? DJD (degenerative joint disease) ??? Headaches, cluster ??? Hernia ??? High blood pressure ??? High cholesterol ??? Seizures Family History: Family History Problem Relation Name Age of Onset ??? Cancer - Lung Father ??? Diabetes - Gestational Brother ??? Hypertension Mother ??? Depression Neg Hx ??? Seizures Neg Hx Social History: Social History Socioeconomic History ??? Marital status: Spouse name: Not on file ??? Number of children: Not on file ??? Years of education: Not on file ??? Highest education level: Not on file Occupational History ??? 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 Financial resource strain: Not on file ??? Food insecurity: Worry: Not on file Inability: Not on file ??? Transportation needs: Medical: Not on file Non-medical: Not on file Tobacco Use ??? Smoking status: Former Smoker Types: Cigarettes Last attempt to quit: 2017 Years since quittin.0 ??? Smokeless tobacco: Never Used Substance and Sexual Activity ??? Alcohol use: Yes Alcohol/week: 1.0 standard drinks Types: 1 Cans of beer per week Comment: rarely ??? Drug use: No ??? Sexual activity: Not on file Lifestyle ??? Physical activity: Days per week: Not on file Minutes per session: Not on file ??? Stress: Not on file Relationships ??? Social connections: Talks on phone: Not on file Gets together: Not on file Attends uatsdin service: Not on file Active member of club or organization: Not on file Attends meetings of clubs or organizations: Not on file Relationship status: Not on file ??? Intimate partner violence: Fear of current or ex partner: Not on file Emotionally abused: Not on file Physically abused: Not on file Forced sexual activity: Not on file Other Topics Concern ??? Not on file Social History Narrative ??? Not on file Physical Exam: Vitals: 04/01/19 1508 BP: 150/86 Pulse: 75 Weight: 221 lb (100.2 kg) Height: 5' 10 (1.778 m) General : pleasant, no distress HEENT: Head normocephalic and atraumatic Extremities: No cyanosis or edema noted Cortical Function: MS: Awake, Alert, Follows Commands Oriented to Person, Place and Time Language: Fluent, Coherent, Repetition Intact VF Intact to confrontation test Neglect No visual neglect, No tactile neglect Cranial Nerves: Pupils 4 mm BRTL, Full EOM, No ptosis or nystagmus Facial sensation intact bilaterally to LT; No facial palsy Hearing intact to finger rub bilaterally Palate symmetric; Normal tongue protrusion Motor: Abnormal Movements: None Bulk: Normal Tone: Normal Strength: Appropriate for Age RUE 5/5 LUE 5/5 RLE 5/5 LLE 5/5 DTR: 2/4 throughout, plantarr reflexs downgoing Sensory: Intact to light touch, temperature and vibration bilaterally Cerebellar: FNF, HNS, ALEJANDRO intact bilaterally Negative Romberg Gait: Normal stride and stance Normal tandem Lab Review/Imaging: Results for RECIO, HUMZA K ( ) as of 04/01/2019 15:28 Ref. Range 11/03/2013 12:50 11/22/2015 14:01 Valproic Acid Latest Ref Range: 50.0 - 100.0 mg/L 35.0 (L) 34.5 (L) Results for HUMZA RECIO ( ) as of 04/01/2019 15:28 Ref. Range 01/25/2017 14:58 05/05/2017 16:36 Carbamezapine Latest Ref Range: 4.0 - 12.0 mcg/mL 6.6 9.3 CTH 05/05/2017 IMPRESSION:?? 1. No acute intracranial process. 2. Minimal mucosal thickening of the sphenoid sinus posteriorly on the right side. Assessment: Complex partial seizures, stable on current AED HTN Plan: ?? Patient is seizure free on current Sz meds for 30+ yrs. Continue Depakote 500 mg QID (250 mg x 2) and carbamazepine ER 300 mg 2 capsule = 600 BID. meds refilled. Will check labs with AED levels. ?? BP higher than ideal. Advise to follow up closely with PCP for HTN management. ?? Please follow the seizures precautions - be compliant with your medications - [...] and others if due precautions are not practiced ?? I spent 30 minutes in the evaluation of the patient of which more than 50 % of the time was spent in counseling and co-ordination of care. Clinic Follow up in 3 months. Julio Aaron, MSN, HUMANITIES DEPARTMENT CHAIR-C Department of Neurology RANCE DEFENSE ATTORNEY * Rosetta Mckee - 04/01/2019 3:12 PM CST Pt did not have updated medication list with him at this appointment and was unsure what he currently is taking. Advised pt to bring list to next appointment. Rosetta Mckee RANCE DEFENSE ATTORNEY documented in this encounter Plan of Treatment Not on file documented as of this encounter Results * (ABNORMAL) VALPROIC ACID FREE+TOTAL PANEL (04/01/2019 4:06 PM INSURANCE DEFENSE ATTORNEY) Valproic Acid Free <7(L) 7 - 23 ug/mL 04/03/2019 3:17 PM INSURANCE DEFENSE ATTORNEY [employer] ([facility]) Valproic Acid Total 20(L) 50 - 125 ug/mL 04/03/2019 3:17 PM INSURANCE DEFENSE ATTORNEY [facility] [employer] ([facility]) Valproic Acid % Free Not Applicable 5 - 18 % 04/03/2019 3:17 PM INSURANCE DEFENSE ATTORNEY [facility] [employer] ([facility]) Comment: INTERPRETIVE INFORMATION: VPA-percent Free Valproic [...] include headache, somnolence and dizziness. Performed by [employer], [address] [place] [address] [email or web address], Rehan Zamarripa MD, Lab. 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
--- OUTSIDE RECORDS SUMMARY | 2024-03-22 20:44 | XMS_ITS | Encounter Summary ---
Author Organization [facility] Address [address] [facility] [place] [address] Care Team Providers Care Foreign Correspondent Name Role Phone Kelsie Toure MISTY-SUPERVISOR PUBLICATIONS PRODUCTION Primary Care Provider + Encounter Details Date Type Department Care Team (Latest Contact Info) Description 05/06/2017 Hospital Outpatient Visit Historic [facility] ECHO [address] [place] [phone] Discharge Disposition: Home or Self Care Social [...] Sign Reading Time Taken Comments Blood Pressure 147/93 05/06/2017 11:20 AM ELECTRONICS SUPERVISOR Pulse - - Temperature - - Respiratory Rate 16 05/06/2017 10:00 AM ELECTRONICS SUPERVISOR Oxygen Saturation - - Inhaled Oxygen Concentration - - Weight 98 kg (216 lb) 05/06/2017 10:00 AM ELECTRONICS SUPERVISOR Height 177.8 cm (5' 10 ) 05/06/2017 10:00 AM ELECTRONICS SUPERVISOR Body Mass Index 30.99 05/06/2017 10:00 AM ELECTRONICS SUPERVISOR documented in this encounter Procedure Notes * Virginia Ritchie MD - 05/06/2017 11:25 AM CST Procedures Signed by Deborah Dangelo RN on 05/06/2017 11:31 AM Author: Deborah Dangelo RN Service: (none) Author Type: Registered Nurse Date of Service: 05/06/2017 11:25 AM Filed: 05/06/2017 11:31 AM Note Type: Procedures Status: Signed Large Engine Assembler: Deborah Dangelo RN (Registered Nurse) Patient discharged from the Echo Lab to [facility]. Okay to discharge the patient per Dr. Marietta Gay, Business Functional Analyst. Patient has no complaints. Denies chest pain. Vital signs at baseline. * Virginia Ritchie MD - 05/06/2017 9:45 AM CST Procedures Signed by Deborah Dangelo RN on 05/06/2017 11:33 AM Author: Deborah Dangelo RN Service: (none) Author Type: Registered Nurse Date of Service: 05/06/2017 9:45 AM Filed: 05/06/2017 11:33 AM Note Type: Procedures Status: Addendum Large Engine Assembler: Deborah Dangelo RN (Registered Nurse) Related Notes: Original Note by Deborah Dangelo RN (Registered Nurse) filed at 05/06/2017 10:14 AM Patient arrived to the Echo Lab from [facility]. Explained the Dobutamine Stress Test to the patient including the risks and benefits. Patient verbalized understanding. A & O x 4. Confirmed NPO sinceprior to midnight. Denies chest pain. 1030: Notified the patient's nurse, Tone, patient passed kidney stones upon urination. Patient reported 3 stones. Seven stones were counted when urine was disposed of. Patient denies having any pain. documented in this encounter Plan of Treatment Not on file documented as of this encounter Visit Diagnoses Not on filedocumented in this encounter Care Teams Foreign Correspondent Relationship Specialty Start Date End Date Kelsie Toure APRN-GONZALO [address] [place] [address] PCP - General Nurse Practitioner 08/13/16 03/03/18 documented as of this encounter
--- OUTSIDE RECORDS SUMMARY | 2024-03-22 20:44 | XMS_ITS | Encounter Summary ---
Author Organization [facility] Address [address] [facility] [place] [address] Care Team Providers Care Associate Professor Of Art Name Role Phone Annabelle Donald MD Primary Care Provider Reason for Visit * Reason Onset Date Comments Refill Request 03/04/2018 Encounter Details Date Type Department Care Team (Late st Contact Info) Description 03/04/2018 Telephone [facility] [address] [place] [address] Julio Aaron APRN-CNP [address] [place] [phone] Refill Request Social History Tobacco Use Types [...] Telephone Encounter - Julio Aaron APRN-CNP - 03/04/2018 2:57 PM WEBSPHERE COMMERCE ARCHITECT Last time seen in clinic 01/2017. Refill request for VPA. Called pt and he reports that he needs refills. I advised him that he needs to be seen for further care for SZ if he is not seeing PCP for it. Scheduled for f/u on 03/11 at 3 pm. Will refills VPA. 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
--- OUTSIDE RECORDS SUMMARY | 2024-03-22 20:44 | XMS_ITS | Encounter Summary ---
Author Organization [facility] Address [address] [facility] [address] Care Team Providers Care Industrial Engineering Manager Name Role Phone Kelsie Toure Primary Care Provider + Encounter Details Date Type Department Care Team (Latest Contact Info) Description 04/04/2016 Hospital Outpatient Visit Historic [facility] OUTPATIENT SERVICES [address] [place] [phone] Theresa Vences MD [address] [place] [address] Discharge Disposition: Home or Self Care Social History Tobacco Use Types Packs/Day Years Used Date Smoking Tobacco: Never Assessed Sex and Gender Information Value Date Recorded Sex Assigned at Not on file Gender Identity Not on file Sexual Orientation Not on file documented as of this encounter Plan of Treatment Not on file documented as of this encounter Visit Diagnoses Not on filedocumented in this encounter Care Teams Industrial Engineering Manager Relationship Specialty Start Date End Date Kelsie Toure APRN-CNP [address] [place] [address] PCP - General Nurse Practitioner 08/13/16 03/03/18 documented as of this encounter
--- OUTSIDE RECORDS SUMMARY | 2024-03-22 20:44 | XMS_ITS | Encounter Summary ---
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, [...] Sign Reading Time Taken Comments Blood Pressure 149/95 03/11/2018 1:56 PM BEDSPRING ASSEMBLER Pulse 80 03/11/2018 1:56 PM BEDSPRING ASSEMBLER Temperature 36.8 ??C (98.3 ??F) 03/11/2018 1:56 PM CS T Respiratory Rate - - Oxygen Saturation - - Inhaled Oxygen Concentration - - Weight 100.7 kg (222 lb) 03/11/2018 1:56 PM BEDSPRING ASSEMBLER Height 177.8 cm (5' 10 ) 03/11/2018 1:56 PM BEDSPRING ASSEMBLER Body Mass Index 31.85 03/11/2018 1:56 PM BEDSPRING ASSEMBLER documented in this encounter Progress Notes * Julio Aaron, MUSIC PUBLICIST-SOURCING INTERN - 03/11/2018 2:56 PM CST Neurology Clinic Follow Up Note Date of Encounter: 03/11/2018 STEPHANIE: 01/25/2017 Chief Complaint: follow up- Sz History obtained from chart review and patient History of Present Illness: I had the pleasure of seeing Humza Recio in Neurology clinic today.Humza Recio is a 68 y.o. male with PMHx significant for HTN, HLD, COPD, and Seizures. Patient has a h/o seizures since teenage. Reports he is seizures free for >20-30 years. Does notremember when was last seizure. Currently on Depakote 500 mg QID (250 mg x 2) and carbamazepine ER 300 mg 2 capsule = 600 BID. Tolerating medications well. Needs refills. 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 Reports chronic back pain, sees pain clinic and taking [place]. Quit smoking one year ago. Denies any other neurological problems today. Review [...] No Known Allergies Home Medications: Current Outpatient Prescriptions Medication Sig ??? diclofenac sodium EC (VOLTAREN) 50 MG tablet ??? loratadine (CLARITIN) 10 MG tablet TK 1 T PO QD PRN FOR 30 DAYS ??? carBAMazepine ER 12hr (CARBATROL) 300 MG capsule Take 2 capsules twice a day ??? valproic acid (DEPAKENE) 250 MG capsule TAKE 2 CAPSULES BY MOUTH EVERY MORNING AND 2 CAPSULES BY MOUTH AT NOON AND 5PM THEN 2 CAPSULES BY MOUTH EVERY NIGHT AT BEDTIME ??? hydroCHLOROthiazide (HYDRODIURIL) 12.5 MG TK 1 T PO QD ??? HYDROcodone-acetaminophen (NORCO) 5-325 MG tablet TK 1 T PO Q 6 TO 8 H ??? meloxicam (MOBIC) 15 MG tablet meloxicam 15 mg tablet ??? tiotropium (SPIRIVA RESPIMAT) 2.5 MCG/ACT inhaler INHALE 2 PUFFS PO QD ??? albuterol HFA (VENTOLIN HFA) 108 (90 BASE) MCG/ACT inhaler INHALE 2 PUFFS PO Q 4 H ??? atorvastatin (LIPITOR) 20 MG tablet ??? quinapril (ACCUPRIL) 10 MG tablet TK 1 T PO QD ??? ibuprofen (MOTRIN) 800 MG tablet TK 1 T PO TID No current facility-administered medications for this visit. PMH: Past Medical History: Diagnosis Date ??? COPD (chronic obstructive pulmonary disease) ??? DJD (degenerative joint disease) ??? Headaches, cluster ??? Hernia ??? High blood pressure ??? High cholesterol ??? Seizures Family History: Family History Problem Relation Age of Onset ??? Cancer - Lung Father ??? Diabetes - Gestational Brother ??? Hypertension Mother ??? Depression Neg Hx ??? Seizures Neg Hx Social History: Social History Social History ??? Marital status: Spouse name: N/A ??? Number of children: N/A ??? Years of education: N/A Occupational History ??? 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 Smoking status: Former Smoker Types: Cigarettes Quit date: 2016 ??? Smokeless tobacco: Never Used ??? Alcohol use 0.6 oz/week 1 Cans of beer per week Comment: rarely ??? Drug use: No ??? Sexual activity: Not on file Other Topics Concern ??? Not on file Social History Narrative Physical Exam: Vitals: 03/11/18 1356 BP: 149/95 Pulse: 80 Temp: 98.3 ??F (36.8 ??C) Weight: 222 lb (100.7 kg) Height: 5' 10 (1.778 m) General [...] stance Normal tandem Lab Review/Imaging: Results for HUMZA RECIO ( ) as of 03/11/2018 15:02 Ref. Range 11/03/2013 12:50 11/22/2015 14:01 Valproic Acid Latest Ref Range: 50.0 - 100.0 mg/L 35.0 (L) 34.5 (L) Results for HUMZA RECIO ( ) as of 03/11/2018 15:02 Ref. Range 11/03/2013 12:50 11/22/2015 14:01 01/25/2017 14:58 05/05/2017 16:36 Carbamezapine Latest Ref Range: 4.0 - 12.0 mcg/mL 5.8 8.0 6.6 9.3 CTH 05/05/2017 IMPRESSION: ?? 1. No acute intracranial process. 2. Minimal mucosal thickening of the sphenoid sinus posteriorly on the right side. Assessment: Complex partial seizures, stable on current AED HTN Plan: ?? Continue Depakote 500 mg QID (250 mg x 2) and carbamazepine ER 300 mg 2 capsule = 600 BID. meds refilled. ?? Will check CBC, CMP with AED levels. ?? BP higher than ideal. Advise to check BP at home and if it is consistently higher over 140/90, advised to contact PCP. ?? Please follow the seizures precautions - [...] precautions are not practiced ?? I spent 40 minutes in the evaluation of the patient of which more than 50 % of the time was spent in counseling and co-ordination of care. Clinic Follow up in 6 months. Julio Aaron, MSN, ELECTRICAL APPLIANCE MECHANIC-C Department of Neurology PRING ASSEMBLER documented in this encounter Plan of Treatment Not on file documented as of this encounter Results * CARBAMAZEPINE LEVEL TOTAL (04/01/2019 4:06 PM BEDSPRING ASSEMBLER) Carbamazepine, trough 7.9 4.0 - 12.0 mcg/mL 04/01/2019 5:11 PM BEDSPRING ASSEMBLER [facility] Blood BLOOD SPECIMEN / Unknown Lab Venipuncture / Unknown 04/01/2019 4:06 PM BEDSPRING ASSEMBLER 04/01/2019 4:12 PM BEDSPRING ASSEMBLER Julio MAGDALENOSOURCING INTERN LAB - CHEMISTR Y ORDERABLES [address] [phone] * (ABNORMAL) VALPROIC ACID LEVEL (04/01/2019 4:06 PM BEDSPRING ASSEMBLER) Valproic Acid Total 19(L) 50 - 100 mcg/mL 04/01/2019 5:08 PM BEDSPRING ASSEMBLER [facility] Blood BLOOD SPECIMEN / Unknown Lab Venipuncture / Unknown 04/01/2019 4:06 PM BEDSPRING ASSEMBLER 04/01/2019 4:12 PM [facility] Julio Aaron MUSIC PUBLICIST-SOURCING INTERN LAB - CHEMISTR Y ORDERABLES [facility] [address] [place] [address] * (ABNORMAL) COMPREHENSIVE METABOLIC PANEL (04/01/2019 4:06 PM BEDSPRING ASSEMBLER) BUN 12 7 - 26 mg/dL 04/01/2019 5:11 PM [facility] Creatinine 0.8 0.6 - 1.2 mg/dL 04/01/2019 5:11 PM [facility] Sodium 145 136 - 145 mmol/L 04/01/2019 5:11 PM [facility] Potassium 3.8 3.5 - 4.5 mmol/L 04/01/2019 5:11 PM [facility] Chloride 105 98 - 107 mmol/L 04/01/2019 5:11 PM [facility] CO2 29 22 - 29 mmol/L 04/01/2019 5:11 PM [facility] Glucose 95 70 - 115 mg/dL 04/01/2019 5:11 PM [facility] Calcium 9.5 8.4 - 10.2 mg/dL 04/01/2019 5:11 PM [facility] Protein Total 7.4 6.0 - 8.3 g/dL 04/01/2019 5:11 PM [facility] Albumin 3.7 3.4 - 5.0 g/dL 04/01/2019 5:11 PM [facility] Bilirubin Total 0.2 0.2 - 1.2 mg/dL 04/01/2019 5:11 PM [facility] Alkaline Phosphatase 99 40 - 150 Units/L 04/01/2019 5:11 PM [facility] ALT 20 0 - 55 Units/L 04/01/2019 5:11 PM [facility] AST 16 5 - 34 Units/L 04/01/2019 5:11 PM [facility] Anion Gap 15 8 - 18 04/01/2019 5:11 PM [facility] BUN/Creatinine Ratio 15 7 - 23 04/01/2019 5:11 PM [facility] Osmolality Calculated 300 270 - 300 mOsm/kg 04/01/2019 5:11 PM [facility] Albumin/Globulin Ratio 1.0(L) 1.1 - 2.3 04/01/2019 5:11 PM [facility] eGFR >60 >60 mL/min/1.7 3 m2 04/01/2019 5:11 PM [facility] Blood BLOOD SPECIMEN / Unknown Lab Venipuncture / Unknown 04/01/2019 4:06 PM BEDSPRING ASSEMBLER 04/01/2019 4:12 PM BEDSPRING ASSEMBLER Julio Aaron MUSIC PUBLICIST-SOURCING INTERN LAB - CHEMISTR Y ORDERABLES [facility] [address] [place] [address] * CBC WITH DIFFERENTIAL (04/01/2019 4:06 PM [facility]) WBC 7.2 3.5 - 10.5 10? 3 /uL 04/01/2019 4:32 PM [facility] RBC 5.04 4.30 - 5.70 10? 6 /uL 04/01/2019 4:32 PM [facility] Hemoglobin 15.4 13.5 - 17.5 g/dL 04/01/2019 4:32 PM [facility] Hematocrit 44.6 39.0 - 50.0 % 04/01/2019 4:32 PM [facility] MCV 88.5 81.0 - 97.0 fL 04/01/2019 4:32 PM [facility] MCH 30.6 28.0 - 34.0 pg 04/01/2019 4:32 PM [facility] MCHC 34.5 32.0 - 36.0 g/dL 04/01/2019 4:32 PM [facility] Platelet Count 222 150 - 400 10? 3 /uL 04/01/2019 4:32 PM [facility] RDW-SD 37.6 36.0 - 50.0 fL 04/01/2019 4:32 PM [facility] RDW-CV 11.8 11.2 - 14.8 % 04/01/2019 4:32 PM [facility] MPV 10.4 9.3 - 12.8 fL 04/01/2019 4:32 PM [facility] nRBC Absolute 0.00 0 10? 3 /uL 04/01/2019 4:32 PM [facility] nRBC Auto 0.0 0 /100 WBC 04/01/2019 4:32 PM [facility] Neutrophils % 57.6 35.0 - 70.0 % 04/01/2019 4:32 PM [facility] Lymphocytes % 31.2 19.7 - 55.1 % 04/01/2019 4:32 PM [facility] Monocytes % 7.6 3.0 - 15.0 % 04/01/2019 4:32 PM [facility] Eosinophils % 2.5 0.0 - 6.0 % 04/01/2019 4:32 PM [facility] Basophil % 0.8 0.0 - 1.5 % 04/01/2019 4:32 PM [facility] Neutrophils Absolute 4.2 1.6 - 7.0 10? 3 /uL 04/01/2019 4:32 PM [facility] Lymphocyte Absolute 2.3 0.8 - 2.9 10? 3 /uL 04/01/2019 4:32 PM [facility] Monocytes Absolute 0.55 0.14 - 0.66 10? 3 /uL 04/01/2019 4:32 PM [facility] Eosinophils Absolute 0.18 0.00 - 0.45 10? 3 /uL 04/01/2019 4:32 PM [facility] Basophils Absolute 0.06 0.00 - 0.06 10? 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
--- OUTSIDE RECORDS SUMMARY | 2024-03-22 20:44 | XMS_ITS | Encounter Summary ---
Author Organization [facility] Address [address] [facility] [place] [address] Care Team Providers Care Cosmetics Presser Name Role Phone Kelsie Toure ALFRED Primary Care Provider + Encounter Details Date Type Department Care Team (Late st Contact Info) Description 01/25/2017 Hospital Outpatient Visit Historic [facility] [address] [place] [id number] Julio Aaron APRN-CNP [address] [phone] Discharge Disposition: Home or Self Care Social [...] as of this encounter Miscellaneous Notes * Letter - Julio Aaron APRN-CNP - 09/05/2017 8:21 AM CDT Letter Signed by Julio Aaron NP on Author: Julio Aaron NP Service: (none) Author Type: (none) Date of Service: Filed: Note Type: Letter Status: (Other) January 28, 2017 Humza K Almita [address] [facility] [address] Dear Humza Recio: The results of your recent laboratory test are as follows: Resulted Orders Comprehensive Metabolic Panel (w/eGFR) Result Value Ref Range BUN 9 7 - 26 mg/dL Creatinine 0.7 0.6 - 1.2 mg/dL Sodium 141 136 - 145 mmol/L Potassium 4.0 3.5 - 4.5 mmol/L Chloride 107 98 - 107 mmol/L Carbon Dioxide 26 22 - 29 mmol/L Glucose 90 70 - 115 mg/dL Calcium 9.6 8.4 - 10.2 mg/dL Total Protein 7.2 6.0 - 8.3 g/dL Albumin 3.4 3.4 - 5.0 g/dL Total Bilirubin 0.4 0.2 - 1.2 mg/dL Alkaline Phosphatase 119 40 - 150 Units/L ALT 21 0 - 55 Units/L AST 15 5 - 34 Units/L Anion Gap 12 8 - 18 BUN/Creatinine Ratio 13 7 - 23 Calculated Osmolality 290 270 - 300 mOsm/kg A/G Ratio 0.9 (L) 1.1 - 2.3 Est. Glomerular Filtration Rate >60 >60 mL/min/1.73 m2 Valproic Acid, Total Result Value Ref Range Valproic Acid, Total 33 (L) 50 - 100 mcg/mL Carbamazepine Level, Total Result Value Ref Range Carbamazepine (Tegretol) 6.6 4.0 - 12.0 mcg/mL CBC WITH DIFFERENTIAL Result Value Ref Range WBC 5.8 3.5 - 10.5 10??3/uL RBC 5.08 4.30 - 5.70 10??6/uL Hemoglobin 15.8 13.5 - 17.5 g/dL Hematocrit 44.1 39.0 - 50.0 % MCV 86.8 81.0 - 97.0 fL MCH 31.1 28.0 - 34.0 pg MCHC 35.8 32.0 - 36.0 g/dL Platelet Count 185 150 - 400 10??3/uL RDW-SD 37.6 36.0 - 50.0 fL RDW-CV 11.9 11.2 - 14.8 % MPV 10.7 9.3 - 12.8 fL Neutrophil % 54.3 35.0 - 70.0 % Lymphocytes % 33.2 19.7 - 55.1 % Monocytes % 9.0 3.0 - 15.0 % Eosinophils % 2.8 0.0 - 6.0 % Basophil % 0.7 0.0 - 1.5 % Neutrophil Abs 3.1 1.6 - 7.0 10??3/uL Lymphocytes Abs 1.9 0.8 - 2.9 10??3/uL Monocytes Abs 0.52 0.14 - 0.66 10??3/uL Eosinophil Abs 0.16 0.00 - 0.22 10??3/uL Basophils ABS 0.04 0.00 - 0.06 10??3/uL Immature Granulocyte % 0.2 0.0 - 1.0 % If you have any questions or concerns, please don't hesitate to call. Sincerely, Julio Aaron NP documented in this encounter Plan of Treatment Not on file documented as of this encounter Procedures Procedure Name Priority Date/Time Associated Diagnosis Comments CBC W AUTO DIFFERENTIAL Routine 01/25/2017 2:58 PM CDT COMPREHENSIVE METABOLIC PANEL Routine 01/25/2017 2:58 PM CDT VALPROIC ACID LEVEL Routine 01/25/2017 2 :58 PM CDT CARBAMAZEPINE LEVEL TOTAL Routine 01/25/2017 2:58 PM CDT CBC W AUTO DIFFERENTIAL Routine 01/25/2017 2:58 PM CDT documented in this encounter Results * (ABNORMAL) VALPROIC ACID LEVEL (01/25/2017 2:58 PM CDT) Valproic Acid Total 33(L) 50 - 100 mcg/mL [facility] Blood specimen (specimen) BLOOD SPECIMEN / Unknown 01/25/2017 2:58 PM CDT 01/25/2017 3:38 PM CDT Julio Aaron [facility] [employer] [facility] - CHEMISTR Y ORDERABLES [address] [phone] * CARBAMAZEPINE LEVEL TOTAL (01/25/2017 2:58 PM CDT) Pathologist [facility] Carbamazepine, trough 6.6 4.0 - 12.0 mcg/mL [facility] Blood specimen (specimen) BLOOD SPECIMEN / Unknown 01/25/2017 2:58 PM CDT 01/25/2017 3:38 PM CDT Julio Aaron [facility] - CHEMISTR Y ORDERABLES Performing Organization Address City/[facility]/ZIP Co de Phone Number [address] [phone] * (ABNORMAL) COMPREHENSIVE METABOLIC PANEL (01/25/2017 2:58 PM CDT) BUN 9 7 - 26 mg/dL [facility] Creatinine 0.7 0.6 - 1.2 mg/dL [facility] Sodium 141 136 - 145 mmol/L [facility] Potassium 4.0 3.5 - 4.5 mmol/L [facility] Chloride 107 98 - 107 mmol/L [facility] CO2 26 22 - 29 mmol/L [facility] Glucose 90 70 - 115 mg/dL [facility] Calcium 9.6 8.4 - 10.2 mg/dL [facility] Protein Total 7.2 6.0 - 8.3 g/dL [facility] Albumin 3.4 3.4 - 5.0 g/dL [facility] Bilirubin Total 0.4 0.2 - 1.2 mg/dL [facility] Alkaline Phosphatase 119 40 - 150 Units/L [facility] ALT 21 0 - 55 Units/L [facility] AST 15 5 - 34 Units/L [facility] Anion Gap 12 8 - 18 [facility] BUN/Creatinine Ratio 13 7 - 23 [facility] Osmolality Calculated 290 270 - 300 mOsm/kg [facility] Albumin/Globulin Ratio 0.9(L) 1.1 - 2.3 [facility] eGFR >60 >60 mL/min/1.7 3 m2 [facility] Blood specimen (specimen) BLOOD SPECIMEN / Unknown 01/25/2017 2:58 PM CDT 01/25/2017 3:38 PM CDT Julio Aaron [facility] [employer] [facility] - CHEMISTR Y ORDERABLES [facility] [address] [place] [address] * CBC W AUTO DIFFERENTIAL (01/25/2017 2:58 PM CDT) WBC 5.8 3.5 - 10.5 10? 3 /uL [facility] RBC 5.08 4.30 - 5.70 10? 6 /uL [facility] Hemoglobin 15.8 13.5 - 17.5 g/dL [facility] Hematocrit 44.1 39.0 - 50.0 % [facility] MCV 86.8 81.0 - 97.0 fL [facility] MCH 31.1 28.0 - 34.0 pg [facility] MCHC 35.8 32.0 - 36.0 g/dL [facility] Platelet Count 185 150 - 400 10? 3 /uL [facility] RDW-SD 37.6 36.0 - 50.0 fL [facility] RDW-CV 11.9 11.2 - 14.8 % [facility] MPV 10.7 9.3 - 12.8 fL [facility] Neutrophils % 54.3 35.0 - 70.0 % [facility] Lymphocytes % 33.2 19.7 - 55.1 % [facility] Monocytes % 9.0 3.0 - 15.0 % [facility] Eosinophils % 2.8 0.0 - 6.0 % [facility] Basophil % 0.7 0.0 - 1.5 % [facility] Neutrophils Absolute 3.1 1.6 - 7.0 10? 3 /uL [facility] Lymphocyte Absolute 1.9 0.8 - 2.9 10? 3 /uL [facility] Monocytes Absolute 0.52 0.14 - 0.66 10? 3 /uL [facility] Eosinophils Absolute 0.16 0.00 - 0.22 10? 3 /uL [facility] Basophils Absolute 0.04 0.00 - 0.06 10? 3 /uL [facility] Immature Granulocytes % 0.2 0.0 - 1.0 % [facility] Blood specimen (specimen) BLOOD SPECIMEN / Unknown 01/25/2017 2:58 PM CDT 01/25/2017 3:38 PM CDT Julio Aaron [facility] - HEMATOLO GY ORDERABLES Performing Organization Address [facility] de Phone Number [address] [phone] * CBC W AUTO DIFFERENTIAL (01/25/2017 2:58 PM CDT) Blood specimen (specimen) BLOOD SPECIMEN / Unknown 01/25/2017 2:58 PM CDT Narrative [facility] - 01/25/2017 3:44 PM CDT The following orders were created for panel order CBC w/Differential. Procedure ? Abnormality ? Status ? --------- ? ------ ? CBC WITH DIFFERENTIAL[[id number]] ? Normal ?Final result ? Please view results for these tests on the individual orders. 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
--- OUTSIDE RECORDS SUMMARY | 2024-03-22 20:44 | XMS_ITS | Encounter Summary ---
Author Organization [facility] Address [address] [place] [address] Care Team Providers Care Trampoline Team Coach Name Role Phone Kelsie Toure M[employer] STOCK CLERK Primary Care Provider + Reason for Referral * Evaluate & Treat - Closed Specialty Diagnoses / Procedures Referred By Barney ruggiero Referred To Contact Diagnoses Degenerative disc disease, lumbar Facet arthropathy, lumbar Chuck Carbone DO [address] [place] [address] Referral ID Status Reason Start Date Expiration Date V isits Requested Visits Authorized [id number] Closed Specialty Services Required 08/13/2016 02/09/2017 1 1 Reason for Visit * Reason Comments Consultation Encounter Details Date Type Department Care Team (Late st Contact Info) Description 08/13/2016 11:30 AM CDT Office Visit [facility] Neurosciences [address] [facility] [address] [place] [id number] Chuck Carbone DO [address] [facility] [address] [place] [address] Degenerative disc disease, lumbar (Primary Dx); Facet arthropathy, lumbar Social History Tobacco Use Types Packs/Day Years [...] Sign Reading Time Taken Comments Blood Pressure 187/104 08/13/2016 10:56 AM CDT Pulse 85 08/13/2016 10:56 AM CDT Temperature - - Respiratory Rate - - Oxygen Saturation - - Inhaled Oxygen Concentration - - Weight 95.3 kg (210 lb) 08/13/2016 10:56 AM CDT Height 177.8 cm (5' 10 ) 08/13/2016 10:56 AM CDT Body Mass Index 30.13 08/13/2016 10:56 AM CDT documented in this encounter Progress Notes * Chuck Carbone, - 08/13/2016 11:07 AM CDT Neurosurgery Office Note HPI/CC: This is a very pleasant 66 year old male who is here for neurosurgical consultation. He has a history of epilepsy with the last known seizure of approximately 20 years ago. This took place in the late 90s when he was in the hospital and he injured his back during that episode. Ever since then he has had progressive low back pain. Over the last 6-12 months is now constant. It is aggravated by bending over and standing for prolonged tours of time. He is essentially never pain-free. He has taken ibuprofen 100 mg several times a day for pain relief but has not tried physical therapy or interventional pain management so far for his problem. The patient denies any numbness, weakness, bowel or bladder issues. Physical Exam: Body mass index is 30.13 kg/(m^2). Pleasant and cooperative for examination, mood and demeanor are appropriate Alert and oriented to time, place, and person Well nourished, atraumatic No swelling or erythema identified during the examination CN 2-12 gi Extra-occular movement is intact ENT: grossly normal hearing bilaterally Resp: normal breathing, unlabored Speech fluent Motor is full in 4 extremities Peripheral extremity pulses are palpable Sensation is intact to light touch throughout Reflexes are symmetrical No SI joint tenderness Hip mechanics are negative (GERALDO) No Hoffmans or clonus noted Normal gait Please see height, weight, and BP reported elsewhere as part of this encounter. Imaging Finding: MRI lumbar spine: Degenerative disc disease most pronounced in the lower lumbar spine. Facet arthropathy most notable at L4-5 and L5-S1. No central or foraminal stenosis is appreciated. Assessment/Plan: Degenerative disc disease, lumbar Facet arthropathy, lumbar We had an extensive discussion regarding the imaging and what it means in terms of the clinical picture. We went over the available imaging together in the office as I educated the patient and demonstrated where the problem area is. Explained to him that there are several conservative measures thathe has not exhausted with respect to his low back pain. We discussed physical therapy verses interventional pain management for lumbar facet blocks. Ultimately, the patient and his decided to [facility] pain management route. I provided him with a referral that they will take 2 pain management location near where they live. ROS: A 10 point review of systems including HEENT, cardiac, respiratory, GI,, integ, hem/onc, endocrine, psych,musculoskeletal has been performed and is negative except for pertinent positives as noted in the HPI and exam above. Past Medical History: Diagnosis Date ??? Headaches, cluster ??? Hernia ??? High blood pressure ??? High cholesterol ??? Seizures Social History Social History ??? Marital status: Spouse name: N/A ??? Number of children: N/A ??? 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 Smoking status: Current Some Day Smoker Types: Cigarettes ??? Smokeless tobacco: Never Used ??? Alcohol use 0.6 oz/week 1 Cans of beer per week ??? Drug use: No ??? Sexual activity: Not on file Other Topics Concern ??? Not on file Social History Narrative ??? No narrative on file Family History Problem Relation Age of Onset ??? Cancer - Lung Father ??? Diabetes - Gestational Brother No family history of spinal issues Be advised that voice recognition software has been used on this chart and inadvertent errors may occur. These may not represent a true interpretation of the dictation given. documented in this encounter Plan of Treatment Scheduled Referrals Name Type Priority Associated Diagnoses Orde r Schedule AMB REFERRAL TO PAIN CLINIC Outpatient Referral Routine Degenerative disc disease, lumbar Facet arthropathy, lumbar Ordered: 08/13/2016 documented as of this encounter Visit Diagnoses Diagnosis Degenerative disc disease, lumbar- Primary Degeneration of lumbar or lumbosacral intervertebral disc Facet arthropathy, lumbar Lumbosacral spondylosis without myelopathy documented in this encounter Care Teams Trampoline Team Coach Relationship Specialty Start Date End Date Kelsie Toure APRN-GONZALO [address] [place] [address] PCP - General Nurse Practitioner 08/13/16 03/03/18 documented as of this encounter
--- OUTSIDE RECORDS SUMMARY | 2024-03-22 20:46 | XMS_ITS | Encounter Summary ---
Author Organization [facility] Address [address] [place] [address] Care Team Providers Care Exerciser Name Role Phone Stephan Donald MD Primary Care Provide r Encounter Details Date Type Department Care Team (Late st Contact Info) Description 05/30/2021 Telephone [facility] [address] [place] [address] Kristel Orellana, LOCO Social History Tobacco Use Types Packs/Day Years Used Date Smoking Tobacco: Former Cigarettes Q uit: 09/17/2016 Vaping Smokeless Tobacco: Former Alcohol Use Standard Drinks/Week Comments Defer 0 (1 standard drink = 0.6 oz pur e alcohol) AUDIT-C Answer Date Recorded Q1: How often do you have a drink containing alc ohol? Never 05/21/2021 Average Number of Drinks Not on file 022 Frequency of Binge Drinking Not on file 04/26 PHQ-2 Answer Date Recorded PHQ-2 Total Score (If total score is 3 or more points, staff should administer the PHQ-9) 0 05/22/2021 Sex and Gender Information Value Date Recorded Sex Assigned at Not on file Legal Sex Male 2:59 AM [employer] Gender Identity Not on file Sexual Orientation Not on file documented as of this encounter Miscellaneous Notes * Telephone Encounter - Kristel Orellana RN - 05/30/2021 2:26 PM [employer] Stroke Follow Up Spoke with: Patient [employer]CH[employer] documented in this encounter Plan of Treatment Not on file documented as of this encounter Visit Diagnoses Not on filedocumented in this encounter Care Teams Exerciser Relationship Specialty Start Date End Date Stephan Donald MD [address] [place] [address] PCP - General 12/16/17 documented as of this encounter
--- OUTSIDE RECORDS SUMMARY | 2024-03-22 20:46 | XMS_ITS | Referral Summary ---
Author Organization [facility] Physician Office Building [address] [place] [id number] Care Team Providers Care Creative Writing Teacher Name Role Phone Stephan Donald MD Primary Care Provide r Chong López MD Unavailable Annika Daniel RN Unavailable Unavailable Allergies No known active allergies Medications carBAMazepine ER (CARBATROL) 300 mg 12 hr capsule daily [address] (PROTONIX) 40 mg EC tablet Take 1 tablet (40 mg total) by mouth daily 30 tablet 1 Active valproate (DEPAKENE) 250 mg capsule valproic acid 250 mg capsule TK 2 CS PO QAM AND 2 CS PO AT NOON AND 5PM THEN 2 CS PO QHS Active tiotropium-olod ateroL (STIOLTO) 2.5-2.5 mcg/actuation inhaler Stiolto Respimat 2.5 mcg-2.5 mcg/actuation solution for inhalation 0 Active rOPINIRole (REQUIP) 0.5 mg tablet ropinirole 0.5 mg tablet TAKE 1 TABLET BY MOUTH EVERY NIGHT AT BEDTIME 0 Active loratadine (CLARITIN) 10 mg tablet Take 10 mg by mouth daily as needed 1 Active hydroCHLOROthia zide (HYDRODIURIL) 25 mg tablet 25 mg daily 1 Active fluticasone propionate (FLONASE) 50 mcg/actuation nasal spray fluticasone propionate 50 mcg/actuation nasal spray,suspension SHAKE LIQUID AND USE 1 SPRAY IN EACH NOSTRIL EVERY DAY 0 Active multivit with minerals/lutein (MULTIVITAMIN 50 PLUS ORAL) Take by mouth 7 Active losartan (COZAAR) 50 mg tablet Take 1 tablet (50 mg total) by mouth daily 30 tablet 11 1 Active atorvastatin (LIPITOR) 40 mg tablet Take 2 tablets (80 mg total) by mouth daily 60 tablet 11 1 Active aspirin 81 mg enteric coated tablet Take 1 tablet (81 mg total) by mouth daily 30 tablet 11 2 Active clopidogreL (PLAVIX) 75 mg tablet Take 1 tablet (75 mg total) by mouth daily for 19 doses 19 tablet 2 Active Active Problems Problem Noted Date Diagnosed Date TIA (transient ischemic attack) 05/22/2021 Primary hypertension 11/10/2020 Atherosclerosis of [place] co ronary artery without angina pectoris 11/10/2020 Petechiae 08/19/2020 Hyperlipidemia 11/08/2016 Chronic obstructive pulmonar y disease with acute exacerbation Immunizations Name Administration Dates Next Due Influenza, Unspecified 12/23/2020 Social History Tobacco Use Types Packs/Day Years [...] staff should administer the PHQ-9) 0 05/22/2021 Personal Safety Answer Date Recorded Getting School Help Needed Not on file 04/11 Sex and Gender Information Value Date Recorded Sex Assigned at Not on file Legal Sex Male 2:59 AM PRETZEL PACKER Gender Identity Not on file Sexual Orientation Not on file Last Filed Vital Signs Vital Sign Reading Time Taken Comments Blood Pressure 138/99 05/24/2021 11:15 AM PRETZEL PACKER Pulse 74 05/24/2021 11:15 AM PRETZEL PACKER Temperature 36.5 ??C (97.7 ??F) 05/24/2021 11:[address] Respiratory Rate 18 05/24/2021 11:15 AM PRETZEL PACKER Oxygen Saturation 94% 05/24/2021 11:15 AM PRETZEL PACKER Inhaled Oxygen Concentration - - Weight 102.1 kg (225 lb) 05/21/2021 7:44 PM PRETZEL PACKER Height 177.8 cm (5' 10 ) 05/21/2021 7:44 PM PRETZEL PACKER Body Mass Index 32.28 05/21/2021 7:44 PM PRETZEL PACKER Plan of Treatment Not on file Procedures Procedure Name Priority Date/Time Associated Diagnosis Comments HEPATITIS C ANTIBODY Timed 08/19/2020 6:[address] ABDOMEN PELVIS W CONTRAST ED 08/19/2020 12:44 AM CDT from Last 3 Months or Most Recently Relevant to Health Maintenance Results * Hepatitis C antibody (08/19/2020 6:15 AM CDT) Hep C Ab Nonreactive Nonreactive [facility] Comment:Antibodies to HCV no t detected. Does NOT exclude the possibility of recent exposure to HCV. Blood specimen (specimen) 08/19/2020 6:15 AM CDT 08/19/2020 6:29 AM CDT us Amaad Rashawn Carmona MD LAB MICROBIOLOGY - GENERAL ORDERABLES Edited Result - Final [facility] Department [place] [address] * CT Abdomen Pelvis W Contrast (08/19/2020 12:44 AM CDT) Anatomical Region Laterality Modality Body N/A Computed Tomogra phy 08/19/2020 1:03 AM CDT Addenda Addendum by Chon Burton MD on 10/31/2021 6:48 AM CDT Unable to reach patient. Will mail a certified letter. ??Bridgett CULP, RN. Edited by: Bridgett Dubose Electronically signed by: Chon Burton M.D. Impressions 08/19/2020 9:00 AM CDT 1. ??Colonic thickening at the hepatic flexure with small volume simple free pelvic fluid likely is colitis. Differential consideration includes colon cancer. Recommend colonoscopy. 2. ??Hyperdense left renal nodule. Recommend follow up renal ultrasound in 6 months. Recommend follow up of the Incidental renal nodule Additional Imaging In 6 Months with renal ultrasound or MRI. Dictated by: Sheldon Luu M.D. The radiology attending physician has personally reviewed this study, and had reviewed and/or edited this written report and agrees with it. Electronically signed by: Chon Burton M.D. Narrative 08/19/2020 9:00 AM CDT EXAMINATION: ??Computed tomography of the abdomen and pelvis with intravenous contrast HISTORY: bloody stools TECHNIQUE: ??Transaxial computed tomographic images of the abdomen and pelvis were obtained with intravenous contrast according to the standard protocol after the uneventful administration of 100 mL Opti-Ray 350 intravenous contrast. COMPARISON: none FINDINGS: ?? The scanned lung bases are normal with mild atelectasis. Heart size is normal. There is no pericardial or pleural effusion. The liver is normal in size. ??There are liver cysts in segment 2 and 8. There is no intra or extrahepatic biliary ductal dilatation. ??The gallbladder is normal. ??The portal vein is patent. The stomach, adrenal glands, pancreas, and spleen are normal. The kidneys symmetrically enhance and there are multiple cysts. A small left renal mid zone lesion is hyperenhancing and measures 6 mm. ??There is no hydronephrosis. ??The urinary bladder contains bladder stones. There is thickening of the colon at the hepatic flexure with surrounding fat stranding. The segment measures at least 10 cm. Small volume low attenuating free pelvic fluid. The bowel is otherwise normal caliber. ??The appendix is visualized and normal. There is no free air. Abdominal hernia repair. There is no mesenteric, retroperitoneal or pelvic lymphadenopathy. No vascular abnormalities. The prostate is normal in size. There is no fracture or suspicious osseous lesion. Procedure Note Chon Burton MD - 08/19/2020 EXAMINATION: Computed tomography of the abdomen and pelvis with intravenous contrast HISTORY: bloody stools TECHNIQUE: Transaxial computed tomographic images of the abdomen and pelvis were obtained with intravenous contrast according to the standard protocol after the uneventful administration of 100 mL Opti-Ray 350 intravenous contrast. COMPARISON: none FINDINGS: The scanned lung bases are normal with mild atelectasis. Heart size is normal. There is no pericardial or pleural effusion. The liver is normal in size. There are liver cysts in segment 2 and 8. There is no intra or extrahepatic biliary ductal dilatation. The gallbladder is normal. The portal vein is patent. The stomach, adrenal glands, pancreas, and spleen are normal. The kidneys symmetrically enhance and there are multiple cysts. A small left renal mid zone lesion is hyperenhancing and measures 6 mm. There is no hydronephrosis. The urinary bladder contains bladder stones. There is thickening of the colon at the hepatic flexure with surrounding fat stranding. The segment measures at least 10 cm. Small volume low attenuating free pelvic fluid. The bowel is otherwise normal caliber. The appendix is visualized and normal. There is no free air. Abdominal hernia repair. There is no mesenteric, retroperitoneal or pelvic lymphadenopathy. No vascular abnormalities. The prostate is normal in size. There is no fracture or suspicious osseous lesion. IMPRESSION: 1. Colonic thickening at the hepatic flexure with small volume simple free pelvic fluid likely is colitis. Differential consideration includes colon cancer. Recommend colonoscopy. 2. Hyperdense left renal nodule. Recommend follow up renal ultrasound in 6 months. Recommend follow up of the Incidental renal nodule Additional Imaging In 6 Months with renal ultrasound or MRI. Dictated by: Sheldon Luu M.D. The radiology attending physician has personally reviewed this study, and had reviewed and/or edited this written report and agrees with it. Electronically signed by: Chon Burton M.D. Dann Aldana MD [facility] CT PROCEDURES Edited Res ult - Final from Last 3 Months or Most Recently Relevant to Health Maintenance Insurance [facility] TRADITIONAL Member Subscriber Plan / Payer (Ef fective 2013-Present) Name:Humza Recio Relation to Subscriber:Self Name:Humza Recio Payer ID:[id number] (NAIC) Group ID:[id number] Type:[employer] Address: [address] MEDICARE [facility] FEDERAL MEDICARE Advance Directives For more information, please contact: [phone] * Full Code (Latest Code Status on File) Date Activated Date Inactivated Comments 05/22/2021 2:32 AM 05/24/2021 7:04 PM * Full Code Date Activated Date Inactivated Comments 08/19/2020 5:38 AM 08/24/2020 8:46 PM Care Teams Creative Writing Teacher Relationship Specialty Start Date End Date Stephan Donald MD [address] [facility] [address] [place] [address] PCP - General 12/16/17 Chong López MD [address] [facility] [address] [place] [address] Referring Physician Cardiology 01/01/22 Annika Daniel, urologist Failure Coordinator Transplant 04/24/23
--- OUTSIDE RECORDS SUMMARY | 2024-03-22 20:46 | XMS_ITS | Encounter Summary ---
Author Organization [facility] Address [address] [place] [address] Care Team Providers Care Housekeeping Manager Name Role Phone Stephan Donald MD Primary Care Provide r Encounter Details Date Type Department Care Team (Latest Contact Info) Description 05/23/2021 8:05 AM CLAIM CLINICIAN - 05/23/2021 11:59 PM CLAIM CLINICIAN Hospital Encounter [facility] Cardiac Diagnostic [facility] [address] [place] [address] Discharge Disposition: Discharge to home or self care Social History Tobacco Use Types Packs/Day Years [...] on file Legal Sex Male 2:59 AM CLAIM CLINICIAN Gender Identity Not on file Sexual Orientation Not on file documented as of this encounter Medications at Time of Discharge aspirin 81 mg enteric coated tablet Take 1 tablet (81 mg total) by mouth daily 30 tablet 11 05/24/2021 atorvastatin (LIPITOR) 40 mg tablet Take 2 tablets (80 mg total) by mouth daily 60 tablet 11 12/20/2020 carBAMazepine ER (CARBATROL) 300 mg 12 hr capsule daily 03/06/2017 clopidogreL (PLAVIX) 75 mg tablet Take 1 tablet (75 mg total) by mouth daily for 19 doses 19 tablet 05/25/2021 fluticasone propionate (FLONASE) 50 mcg/actuation nasal spray fluticasone propionate 50 mcg/actuation nasal spray,suspension SHAKE LIQUID AND USE 1 SPRAY IN EACH NOSTRIL EVERY DAY 10/28/2019 hydroCHLOROthiaz adelina (HYDRODIURIL) 25 mg tablet 25 mg daily 11/06/2020 loratadine (CLARITIN) 10 mg tablet Take 10 mg by mouth daily as needed 10/08/2020 losartan (COZAAR) 50 mg tablet Take 1 tablet (50 mg total) by mouth daily 30 tablet 11 12/13/2020 multivit with minerals/lutein (MULTIVITAMIN 50 PLUS ORAL) Take by mouth 11/08/[address] (PROTONIX) 40 mg EC tablet Take 1 tablet (40 mg total) by mouth daily 30 tablet 08/24/2020 rOPINIRole (REQUIP) 0.5 mg tablet ropinirole 0.5 mg tablet TAKE 1 TABLET BY MOUTH EVERY NIGHT AT BEDTIME 01/26/2020 tiotropium-oloda teroL (STIOLTO) 2.5-2.5 mcg/actuation inhaler Stiolto Respimat 2.5 mcg-2.5 mcg/actuation solution for inhalation 06/04/2019 valproate (DEPAKENE) 250 mg capsule valproic acid 250 mg capsule TK 2 CS PO QAM AND 2 CS PO AT NOON AND 5PM THEN 2 CS PO QHS aspirin (Adult Low Dose Aspirin) 81 mg enteric coated tablet Take 1 tablet (81 mg total) by mouth daily 30 tablet 11 12/13/2020 2 tiotropium bromide (SPIRIVA RESPIMAT) 2.5 mcg/actuation inhaler Spiriva Respimat 2.5 mcg/actuation solution for inhalation INHALE 2 PUFFS PO QD 2 documented as of this encounter Discharge Disposition Disposition Code Departure Means Destination Discharge to home or self care documented in this encounter Plan of Treatment Not on file documented as of this encounter Procedures Procedure Name Priority Date/Time Associated Diagnosis Comments TRANSTHORACIC ECHO (TTE) COMPLETE W DOPPLER/CF W CONTRAST W BUBBLE Pending Discharge 05/23/2021 9:58 AM CLAIM CLINICIAN documented in this encounter Visit Diagnoses Not on filedocumented in this encounter Administered Medications Inactive Administered Medications - up to 3 most recent administrations Medication Order MAR Action Action Date Dose Rate Site perflutren protein-a (OPTISON) 3 mL in sodium chloride 0.9% 8 mL syringe 1-8 mL, intravenous, Once in imaging, contrast, Starting on Sat05/23/21 at 0903, For 1 dose, Intra-Procedure (CV) Contrast Given 05/23/2021 9:58 AM CLAIM CLINICIAN 4 mL documented in this encounter Orders Medications Ordered That Buck ht Not Have Been Administered Count Last Ordered Date First Ordered Date perflutren protein-a (OPTISO N) 3 mL in sodium chloride 0.9% 8 mL syringe 1 05/23/2021 documented in this encounter Care Teams Housekeeping Manager Relationship Specialty Start Date End Date Stephan Donald MD [address] [address] PCP - General 12/16/17 documented as of this encounter
--- OUTSIDE RECORDS SUMMARY | 2024-03-22 20:46 | XMS_ITS | Clinical Summary ---
Author Organization [facility] Physician Office Building [address] [place] [phone] Care Team Providers Care Consultant Intern Name Role Phone Stephan Donald MD Primary Care Provide r Chong López MD Unavailable [phone] Annika Daniel RN Unavailable Unavailable Allergies No [...] mg total) by mouth daily 60 tablet 1 Active aspirin 81 mg enteric coated tablet Take 1 tablet (81 mg total) by mouth daily 30 tablet 11 2 Active clopidogreL (PLAVIX) 75 mg tablet Take 1 tablet (75 mg total) by mouth daily for 19 doses 19 tablet 2 Active Active Problems Problem Noted Date Diagnosed Date TIA (transient ischemic attack) 05/22/2021 Primary hypertension 11/10/2020 Atherosclerosis of [place] co ronary artery without angina pectoris 11/10/2020 Petechiae 08/19/2020 Hyperlipidemia 11/08/2016 Chronic obstructive pulmonar y disease with acute exacerbation Immunizations Name Administration Dates Next Due Influenza, Unspecified 12/23/2020 Surgical History Surgery Date Site/Laterality Comments HERNIA REPAIR Medical History Medical History Date Comments Seizures (HCC) Headache COPD (chronic obstructive pulmonary disease) (HC C) Family History Medical History Relation Name Comments No Known Problems Father No Known Problems Mother Relation Name Status Comments Father Mother Social History Tobacco Use Types Packs/Day Years [...] on file Legal Sex Male 2:59 AM 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 Gender Identity Not on file Sexual Orientation Not on file Obstetrics History Last Filed Vital Signs Vital Sign Reading Time Taken Comments Blood Pressure 138/99 05/24/2021 11:15 AM 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 Pulse 74 05/24/2021 11:15 AM 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 Temperature 36.5 ??C (97.7 ??F) 05/24/2021 11:[address] Respiratory Rate 18 05/24/2021 11:15 AM 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 Oxygen Saturation 94% 05/24/2021 11:15 AM 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 Inhaled Oxygen Concentration - - Weight 102.1 kg (225 lb) 05/21/2021 7:44 PM 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 Height 177.8 cm (5' 10 ) 05/21/2021 7:44 PM 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 Body Mass Index 32.28 05/21/2021 7:44 PM 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 Plan of Treatment Health Maintenance Due Date Last Done Comments Colon Cancer Screening-Colonoscopy 1950 Fall Risk Assessment 1950 Hepatitis B Screening 01/12/1970 Zoster Vaccine (1 of 2) 01/12/2002 Well Visit 65+ 01/12/2017 Depression Screening 05/21/2022 05/21/2021 Influenza Vaccine (#1) 2023 , 02/02/2020, 01/22/2019, Additional history exists DTaP/Tdap/Td Vaccine (2 - Td or Tdap) 02/04/2027 02/04/2017 Pneumococcal vaccine 65+ Completed 06/05/2018, 01/23 Abdominal Aortic Aneurysm (A AA) Screen Completed 08/19/2020 Hepatitis C Screening Completed 08/19/2020 Procedures Procedure Name Priority Date/Time Associated Diagnosis Comments HEPATITIS C ANTIBODY Timed 08/19/2020 6:[address] ABDOMEN PELVIS W CONTRAST ED 08/19/2020 12:44 AM CDT from Last 3 Months or Most Recently Relevant to Health Maintenance Results * Hepatitis C antibody (08/19/2020 6:15 AM CDT) Hep C Ab Nonreactive Nonreactive [facility] Comment:Antibodies to HCV no t detected. Does NOT exclude the possibility of recent exposure to HCV. Blood specimen (specimen) 08/19/2020 6:15 AM CDT 08/19/2020 6:29 AM CDT Loren Carmona MD LAB MICROBIOLOGY - GENERAL ORDERABLES Edited Result - Final [facility] Department [place] [address] * CT Abdomen Pelvis W Contrast (08/19/2020 12:44 AM CDT) Anatomical Region Laterality Modality Body N/A Computed Tomogra phy 08/19/2020 1:03 AM CDT Addenda Addendum by Chon Burton MD on 10/31/2021 6:48 AM CDT Unable to reach patient. Will mail a certified letter. ??Bridgett GREGORYN, RN. Edited by: Bridgett Dubose Electronically signed [...] fracture or suspicious osseous lesion. Procedure Note Short, Chon Garcia MD - 08/19/2020 EXAMINATION: Computed tomography of [...] agrees with it. Electronically signed by: Chon Burtno M.D. Dann Aldana MD IMG CT PROCEDURES Edited Res ult - Final from Last 3 Months or Most Recently Relevant to Health Maintenance Insurance [facility] [address] Member Subscriber Plan / Payer ( fective 2013-Present) Name:Humza Recio Relation to Subscriber:Self Name:Humza Recio Payer ID:[id number] (NAIC) Group ID:[id number] Type:[employer] Address: [address] MEDICARE MEDICARE Advance Directives For more information, please contact: [phone] * Full Code (Latest Code Status on File) Date Activated Date Inactivated Comments 05/22/2021 2:32 AM 05/24/2021 7:04 PM * Full Code Date Activated Date Inactivated Comments 08/19/2020 5:38 AM 08/24/2020 8:46 PM Care Teams Consultant Intern Relationship Specialty Start Date End Date Stephan Donald MD [address] [place] [address] PCP - General 12/16/17 Chong López MD [address] [place] [address] Referring Physician Cardiology 01/01/22 Annika Daniel, medical asst Failure Coordinator Transplant 04/24/23
--- OUTSIDE RECORDS SUMMARY | 2024-03-22 20:46 | XMS_ITS | CONTINUITY OF CARE DOCUMENT ---
Author Name cyndi hanna Address Unknown Organization [facility] Address [address] [place] [address] Phone [phone] Care Team Providers Care Box Lidder Name Role Phone Angelique Abbasi MD Unavailable WAGNER DONALD MD Unavailable [phone] WAGNER DONALD MD Unavailable [phone] PROBLEMS Condition Status Date Provider Notes Cardiovascular Condition Screening active Angelique Abbasi MD Preop cardiovasc. examination active Michael Abbasi MD CAD active Angelique Abbasi MD Snoring active Angelique Abbasi MD Orthostatic hypotension active Gonzalo Coughlin ndberg Dizziness active Gonzalo Clark Chest pain - pleuritic completed 9 - Gonzalo Clark Chest pain completed - Ramsey Rodriguez MD Hyperlipidemia active Chencho Cosby MD fatty liver active Chencho Cosby MD Retroperitoneal bleeding active Chencho leung MD CAD active Chencho Cosby MD Seizures active Ramsey Rodriguez MD Hypertension active Ramsey Rodriguez MD COPD active Ramsey Rodriguez MD Back Pain active Ramsey Rodriguez MD Tobacco use quit active Ramsey Rodriguez MD Obesity active Ramsey Rodriguez MD Shortness of breath completed - Gonzalo Eduardo ENCOUNTERS Date Type Provider Location Encounter Diag nosis - In-person encounter Office Visit Angelique Abbasi MD [facility] - In-person encounter Office Visit Angelique Abbasi MD [facility] Preop cardiovasc. examinationCardiovascular Condition Screening - In-person encounter Office Visit Angelique Abbasi MD [facility] - In-person encounter Office Visit Angelique Abbasi MD [facility] SnoringCAD - In-person encounter Office Visit Ramsey Rodriguez MD [facility] - In-person encounter Office Visit Ramsey Rodriguez MD [facility] Shortness of breathChest pain - pleuriticDizzinessOrthostatic hypotension - In-person encounter Office Visit Ramsey Rodriguez MD [facility] - In-person encounter Office Visit Ramsey Rodriguez MD [facility] Chest pain - In-person encounter Office Visit Octavio Dejesus MD [facility] - In-person encounter Office Visit Ramsey Rodriguez MD [facility] - In-person encounter Office Visit Chencho Cosby MD [facility] CADRetroperitoneal bleedingfatty liverHyperlipidemia - In-person encounter Office Visit Ramsey Rodriguez MD [facility] - In-person encounter Office Visit Ramsey Rodriguez MD [facility] ObesityTobacco use quitBack PainCOPDHypertensionSeizures VITAL SIGNS Date Observation Value Provider Body Mass Index (Ratio) 29.99 kg/m2 Gabriela Abbasi MD blood pressure, diastolic 88 mm[Hg] Rosa Lopez blood pressure, systolic 135 mm[Hg] Vip in [facility] pulse rate 90 /min [facility] respiratory rate E&M 16 /min Aaron Iraida [facility] oxygen saturation, oximetry 96 % [facility] weight E&M 209 [lb_av] [facility] blood pressure, cuff size regular iva [facility] height E&M 70 [in_i] [facility] Body Mass Index (Ratio) 30.85 kg/m2 Gabriela Abbasi MD blood pressure, diastolic 108 mm[Hg] [employer] blood pressure, systolic 171 mm[Hg] Jennifer blood pressure, cuff size regular Angel [facility] blood pressure, diastolic 108 mm[Hg] Angel [facility] blood pressure, systolic 171 mm[Hg] [facility] pulse rate 84 /min Orlin respiratory rate E&M 16 /min [facility] oxygen saturation, oximetry 94 % [facility] weight E&M 215 [lb_av] Orlin y height E&M 70 [in_i] [facility] y Body Mass Index (Ratio) 30.99 kg/m2 Christopher Iorfida blood pressure, diastolic 100 mm[Hg] Li [employer]kLogic blood pressure, systolic 154 mm[Hg] Jennifer kLogic blood pressure, cuff size regular Fa [facility] blood pressure, diastolic 100 mm[Hg] Fa [facility] blood pressure, systolic 154 mm[Hg] Jace [facility] pulse rate 73 /min Carmen Helton oxygen saturation, oximetry 95 % Carmen [place] respiratory rate E&M 16 /min Carmen owen weight E&M 216 [lb_av] Carmen Helton height E&M 70 [in_i] Carmen Helton Body Mass Index (Ratio) 29.84 kg/m2 Gabriela Abbasi MD blood pressure, diastolic 99 mm[Hg] claudio Mckee blood pressure, systolic 158 mm[Hg] She susan Mckee blood pressure, cuff size regular claudio Mckee oxygen saturation, oximetry 95 % Suki Mckee pulse rate 85 /min Suki Mckee respiratory rate E&M 20 /min Suki Mckee weight E&M 208 [lb_av] Suki Mckee height E&M 70 [in_i] Suki Mckee Body Mass Index (Ratio) 33.86 kg/m2 [facility], cuff size large Ke kahlil Monten[place]ro blood pressure, diastolic 82 mm[Hg] Ke tiffanycecilio [facility] blood pressure, systolic 136 mm[Hg] Lawrence [place] oxygen saturation, oximetry 96 % Viri Little respiratory rate E&M 16 /min Viri barakat pulse rate 75 /min Viri Mueller [facility] weight E&M 236 [lb_av] Viri Mueller [facility] height E&M 70 [in_i] Viri Mueller [facility] Body Mass Index (Ratio) 33.00 kg/m2 Christopher godinez [facility] Diastolic BP Standing #2 80 mm[Hg] Nancy jacobs [facility] Systolic BP Standing #2 132 mm[Hg] Christopher godinez [facility] blood pressure, diastolic, sitting 90 mm[ Hg] Gonzalo [facility] blood pressure, systolic, sitting 148 mm[ Hg] [facility] blood pressure, diastolic 90 mm[Hg] Júnior MujicaSedrick blood pressure, systolic 148 mm[Hg] Chapis MujicaSedrick oxygen saturation, oximetry 94 % Shayla MujicaSedrick respiratory rate E&M 18 /min Shayla O'Sedrick pulse rate 94 /min Shayla O'Sedrick weight E&M 230 [lb_av] Shayla ONegraSedrick height E&M 70 [in_i] Shayla MujicaSedrick Body Mass Index (Ratio) 33.00 kg/m2 Christopher Mcwilliamsberg blood pressure, diastolic 84 mm[Hg] Ni tachoi Eric blood pressure, systolic 130 mm[Hg] Garrett king Eric oxygen saturation, oximetry 95 % Katie Eric pulse rate 90 /min Katie Eric weight E&M 230 [lb_av] Katie Eric height E&M 70 [in_i] Katie Eric Body Mass Index (Ratio) 32.57 kg/m2 Christopher Mcwilliamsberg blood pressure, diastolic 90 mm[Hg] Erwin dany Win blood pressure, systolic 150 mm[Hg] Kayla sabine Win oxygen saturation, oximetry 96 % Onelia Win pulse rate 68 /min Onelia Jain weight E&M 227 [lb_av] Onelia Jain height E&M 70 [in_i] Onelia Jain Body Mass Index (Ratio) 31.28 kg/m2 Toro Dejesus MD blood pressure, diastolic 90 mm[Hg] Da ambrosio [place] blood pressure, systolic 142 mm[Hg] Dac ia [place] oxygen saturation, oximetry 92 % Patricia [place] respiratory rate E&M 18 /min Patricia V oss pulse rate 76 /min Patricia [place] weight E&M 218 [lb_av] Patricia Dallas height E&M 70 [in_i] Patricia Dallas Body Mass Index (Ratio) 31.13 kg/m2 Christopher Clark blood pressure, diastolic, left arm 80 mm [Hg] Vanessa Dyer blood pressure, systolic, left arm 140 mm [Hg] Vanessa Dyer blood pressure, diastolic, right arm 80 m m[Hg] Salol Dyer blood pressure, systolic, right arm 140 m m[Hg] Vanessa Dyer blood pressure, diastolic 80 mm[Hg] Ki [facility] blood pressure, systolic 140 mm[Hg] Kil [facility] oxygen saturation, oximetry 95 % [facility] respiratory rate E&M 18 /min [facility] 74 /min [facility] weight E&M 217 [lb_av] Salol Dyer height E&M 70 [in_i] Vanessa Dyer Body Mass Index (Ratio) 31.42 kg/m2 Sunil Cosby MD blood pressure, cuff size regular Ke rri Sidney blood pressure, diastolic 86 mm[Hg] Ke rri Sidney blood pressure, systolic 150 mm[Hg] Lawrence Little oxygen saturation, oximetry 94 % Viri Little respiratory rate E&M 20 /min Viri barakat pulse rate 75 /min Viri Mueller er weight E&M 219 [lb_av] Viri Ami lder height E&M 70 [in_i] Viri Mueller lder Body Mass Index (Ratio) 31.56 kg/m2 Christopher Clark blood pressure, cuff size regular Ke kahlil Little blood pressure, diastolic 100 mm[Hg] Ke rri Monier blood pressure, systolic 170 mm[Hg] Lawrence ri [place] oxygen saturation, oximetry 95 % Viri Bustillosalekseyerwin respiratory rate E&M 18 /min Viri jamesalekseyerwin pulse rate 70 /min Viri Mueller [facility] weight E&M 220 [lb_av] Viri Mueller tanisha height E&M 70 [in_i] Viri Ami tanishaer blood pressure, resting Yes Christopher Mcwilliamsberg Body Mass Index (Ratio) 31.13 kg/m2 Christopher herbert Clark blood pressure, cuff size large Ke kahlil Little blood pressure, diastolic 110 mm[Hg] Ke tiffanyi [place] blood pressure, systolic 160 mm[Hg] Lawrence Little oxygen saturation, oximetry 94 % Viri Little respiratory rate E&M 20 /min Viri jamesalekseyerwin pulse rate 72 /min Viri Mueller tanishaer weight E&M 217 [lb_av] Viri Mueller tanisha height E&M 70 [in_i] Viri Edwardnfe tanishaerwin ALLERGIES No Known Drug Allergies RESULTS Date Observation Value Provider Reference Range Interpretation Location triglyceride, serum, fasting 104 mg/dL Ramsey Rodriguez MD HDL cholesterol, serum 49 mg/dL Ramsey Rodriguez MD LDL cholesterol, serum 93 mg/dL Ramsey Rodriguez MD cholesterol, serum 163 mg/dL Ramsey Rodriguez MD thyroid stimulating hormone, serum 0.785 u[IU]/mL Gonzalo Clark thyroxine, serum, free 1.08 ng/dL [facility] platelet count 221 10*3/mm3 [facility] platelet count 221 10*3/uL [facility] red blood cell distribution width 11.9 % [facility] mean corpuscular hemoglobin concentration, RBC 33.8 g/dL [facility] mean corpuscular hemoglobin, RBC 30.6 pg [facility] mean corpuscular volume, RBC 90.3 fL [facility] hematocrit, blood 45.5 % [facility] hemoglobin, blood 15.4 g/dL [facility] erythrocyte (RBC) count 5.04 10*6/mm3 [facility] leukocyte count, blood 6.8 10*3/mm3 [facility] protein, total, serum 7.4 g/dL [facility] albumin, serum 4.4 g/dL [facility] bilirubin, serum, total 0.40 mg/dL [facility] alkaline phosphatase, serum 100 1/L [facility] alanine aminotransferase (SGPT), serum 24 1/L [facility] aspartate aminotransferase (SGOT), serum 26 1/L Ramsey Rodriguez MD calcium, serum 9.9 mg/dL [facility] blood glucose, random 101 mg/dL [facility] creatinine, serum 0.83 mg/dL [facility] urea nitrogen, blood 22 mg/dL [facility] carbon dioxide, serum, total 27 mmol/L [facility] chloride, serum 104 mmol/L [facility] potassium, serum 4.0 mmol/L [facility] sodium, serum 142 mmol/L [facility] very low density lipoproteins 27.4 mg/dL [facility] 5.0 - 40.0 LDL/HDL (low-density lipoprotein/high-de nsity lipoprotein) ratio 3.0 [facility] - lipoprotein, beta, serum, point, quantitative, calculated 140.6 (?) [facility] 0.0 - 100.0 High HDL cholesterol, serum 47.0 mg/dL [facility] 35.0 - 55.0 cholesterol, serum 215.0 mg/dL [facility] 0.0 - 200.0 High triglyceride, serum, fasting 137.0 mg/dL [facility] 0.0 - 150.0 urea nitrogen/creatinine ratio, serum 21.4 [facility] Estimated Glomerular Filtration Rate (calc) 120.7 (?) [facility] 59.0 - chloride, serum 105.5 mmol/L [facility] 98.0 - 107.0 potassium, serum 4.2 mmol/L [facility] 3.5 - 5.1 sodium, serum 145.0 mmol/L [facility] 136.0 - 145.0 creatinine, serum 0.7 mg/dL [facility] 0.7 - 1.2 carbon dioxide, venous blood 24.0 mmol/L [facility] 23.0 - 31.0 calcium, serum 9.8 mg/dL [facility] 8.6 - 10.2 urea nitrogen, blood 15.0 mg/dL [facility] 8.0 - 23.0 blood glucose, random 116.0 mg/dL [facility] 74.0 - 99.0 High red blood cell distribution width, size density 41.5 fL [facility] - immature granulocytes, percentage of total cells, blood 0.2 % [facility] - nucleated red blood cells as percent of blood leukocytes 0.9 % [facility] - red blood cell (erythrocyte) count, per high power field 0.1 10*3/UL [facility] - eosinophils as percent of blood leukocytes 3.6 % [facility] - neutrophils as percent of blood leukocytes 54.4 % [facility] - Absolute Neutrophils 3.6 CELLS/UL [facility] 1.5 - 7.8 basophils as percent of blood leukocytes 0.9 % [facility] - Absolute Basophils 0.1 CELLS/UL [facility] 0.0 - 0.2 monocytes as percent of blood leukocytes 8.1 % [facility] - Absolute Monocytes 0.5 CELLS/UL [facility] 0.2 - 1.0 lymphocytes as percent of blood leukocytes 32.8 % [facility] - Absolute Lymphocytes 2.2 CELLS/UL [facility] 0.9 - 3.9 mean platelet volume 10.8 (?) [facility] - platelet count 271.0 THOUSAND/U L [facility] 100.0 - 400.0 mean corpuscular hemoglobin concentration, RBC 33.3 G/DL [facility] 31.0 - 38.0 mean corpuscular hemoglobin, RBC 30.9 pg [facility] 25.0 - 35.0 mean corpuscular volume, RBC 92.9 fL [facility] 75.0 - 100.0 hematocrit, blood 43.3 % [facility] 35.0 - 55.0 hemoglobin, blood 14.4 g/dL [facility] 11.5 - 16.5 erythrocyte count, whole blood 4.7 MILLION/UL [facility] 3.5 - 5.5 activated partial thromboplastin time 30.3 SECONDS [facility] 23.0 - 33.0 prothrombin time (patient) 9.6 s [facility] 9.0 - 11.5 international normalized ratio (INR) 0.9 [facility] 0.9 - 1.1 folate, serum 17.0 NG/MLM [facility] 5.6 - 45.8 vitamin b12, serum 547.3 pg/mL [facility] 211.0 - 946.0 pro brain natriuretic peptide 70.2 pg/mL [facility] 0.0 - 125.0 ferritin, serum 132.1 ng/mL [facility] 30.0 - 400.0 urea nitrogen/creatinine ratio, serum 14.4 [facility] - Estimated Glomerular Filtration Rate (calc) 90.3 (?) [facility] 59.0 - chloride, serum 103.2 mmol/L [facility] 98.0 - 107.0 potassium, serum 4.0 mmol/L [facility] 3.5 - 5.1 sodium, serum 142.0 mmol/L [facility] 136.0 - 145.0 creatinine, serum 0.9 mg/dL [facility] 0.7 - 1.2 carbon dioxide, venous blood 26.0 mmol/L [facility] 23.0 - 31.0 calcium, serum 9.2 mg/dL [facility] 8.6 - 10.2 urea nitrogen, blood 13.0 mg/dL [facility] 8.0 - 23.0 blood glucose, random 104.0 mg/dL [facility] 74.0 - 99.0 High red blood cell distribution width, size density 40.9 fL [facility] - immature granulocytes, percentage of total cells, blood 0.5 % [facility] - nucleated red blood cells as percent of blood leukocytes 0.0 % [facility] - red blood cell (erythrocyte) count, per high power field 0.0 10*3/UL [facility] - eosinophils as percent of blood leukocytes 3.1 % [facility] - neutrophils as percent of blood leukocytes 54.4 % [facility] - Absolute Neutrophils 3.3 CELLS/UL [facility] 1.5 - 7.8 basophils as percent of blood leukocytes 0.8 % [facility] - Absolute Basophils 0.1 CELLS/UL [facility] 0.0 - 0.2 monocytes as percent of blood leukocytes 9.0 % [facility] - Absolute Monocytes 0.6 CELLS/UL [facility] 0.2 - 1.0 lymphocytes as percent of blood leukocytes 32.2 % [facility] - Absolute Lymphocytes 2.0 CELLS/UL [facility] 0.9 - 3.9 mean platelet volume 11.3 (?) [facility] - platelet count 193.0 THOUSAND/U L [facility] 100.0 - 400.0 mean corpuscular hemoglobin concentration, RBC 33.3 G/DL [facility] 31.0 - 38.0 mean corpuscular hemoglobin, RBC 31.0 pg [facility] 25.0 - 35.0 mean corpuscular volume, RBC 92.9 fL [facility] 75.0 - 100.0 hematocrit, blood 45.9 % [facility] 35.0 - 55.0 hemoglobin, blood 15.3 g/dL [facility] 11.5 - 16.5 erythrocyte count, whole blood 4.9 MILLION/UL [facility] 3.5 - 5.5 iron, serum 77.0 ug/dL [facility] 31.0 - 144.0 iron saturation percent, serum 28.4 % [facility] 20.0 - 50.0 iron binding capacity, total 271.6 ug/dL [facility] 250.0 - 450.0 reticulocyte count, absolute 0.113 10*6 CELLS/UL [facility] - reticulocyte count, blood, uncorrected 2.28 % [facility] 0.50 - 2.00 High HISTORY OF MEDICATION USE Medication Status Instructions Dates Provider Indications Com ments metoprolol succinate 25 mg tablet extended release 24 hr active Take 1 tablet by mouth once a day 11/26 Shaina Babcock NP ropinirole 0.5 mg tablet active Take as needed 04/09 Viri Little BENZONATATE 100 MG CAPS completed Take 1 three times a day as needed 04/09 - 11/26 Shaina Babcock NP valproic acid 250 mg capsule active 100 mg three times a day 04/09 Viri Little carbamazepine 300 mg capsule, ER multiphase 12 hr completed 2 every night 04/09 - 11/26 Shaina Babcock NP ASPIRIN 81 81 MG ORAL TABLET DELAYED RELEASE active 1 tablet by mouth once a day 04/09 Viri Little Stiolto Respimat 2.5-2.5 mcg/actuation mist active 2 puff once a day 10/27 Shayla Mattson Flonase Allergy Relief 50 mcg/actuation spray,suspension active 2 spray into both nostrils once a day 10/27 Shayla Mattson sertraline 50 mg tablet active 1 tablet once a day 10/27 Shayla Tena'Sedrick MECLIZINE HCL 25 MG ORAL TABLET completed ONE TAB NEEDED 10/27 - 11/11 Viri Little hydrochlorothiazide 25 mg tablet active Take 1 tablet by mouth once a day 05/04 Rocío House PERCOCET 5-325 MG ORAL TABLET completed ONE FOUR TIMES A DAY NEEDED 11/08 - 10/27 Shayla Mattson Men's Multivitamin 400-20-300 mcg tablet active Take 1 once a day 11/08 Viri Little Accupril 40 mg tablet active once a day 10/20 Viri Little Dose reduced 10/28/19 from 40mg daily to 20mg daily Lipitor 40 mg tablet active 1 tablet on ce a day 09/26 Shayla Mattson VALPROIC ACID 250 MG ORAL CAPSULE completed 2 to 4 times a day 09/26 - 10/27 Shayla Mattson CARBAMAZEPINE ER 300 MG ORAL CAPSULE EXTENDED RELEASE 12 HOUR completed 2 pills twice a day 09/26 - 10/27 Shayla Tena'Sedrick IBUPROFEN 800 MG ORAL TABLET completed take as needed 09/26 - 04/13 Ramsey Rodriguez MD SOCIAL HISTORY Date Observation Value Provider personal history of marijuana use no Shaina Babcock NP drug use no Shaina Babcock NP alcohol use no Shaina Babcock NP smoking, year quit 2016 Shaina Zendejas CORE MAN cigarette use yes Shaina Blakeri CORE MAN smoking status Former smoker Shaina Blake ri CORE MAN smoking, year quit 2016 Carmen Alvarado ler cigarette use yes Carmen Helton smoking status Former smoker Carmen Helton number of grandchildren Angelique Abbasi MD social history E&M S moking History: P atient is a former smoker. Angelique Abbasi MD social history reviewed E&M revi ewed - no changes required Angelique Abbasi MD smoking status Former smoker Suki Chopra r social history reviewed E&M revi ewed - no changes required [facility] smoking, year quit 2017 Viri Goodman enenfelder cigarette use yes Viri [facility]rubennf [facility] smoking status Former smoker Viri Edward nfelder social history reviewed E&M revi ewed - no changes required [facility] smoking, year quit 2017 Shayla O' Sedrick cigarette use yes Shayla O'Sedrick smoking status Former smoker Shayla O'Nena l social history reviewed E&M revi ewed - no changes required [facility] smoking, year quit 2017 Katie sotelo cigarette use yes Katie Reyes smoking status Former smoker Katie Neri rd social history E&M Smoking Histo ry: P atient is a former smoker. Gonzalo Clark number of grandchildren Ramsey Rodriguez MD smoking, year quit 2017 Onelia bowser-Cristobal cigarette use yes Onelia Mcnally smoking status Former smoker Onelia Stone on-Cristobal social history reviewed E&M revi ewed - no changes required Onelia Win number of grandchildren Octavio Dejesus MD U natalya Dejesus MD social history E&M S moking History: Usman girard is a former smoker. Octavio Dejesus MD social history reviewed E&M revi ewed - no changes required Octavio Dejesus MD smoking, year quit 2016 Patricia Zahida s cigarette use yes Patricia Dallas smoking status Former smoker Patricia Dallas smoking, year quit 2016 Ramsey lam MD cigarette use yes Ramsey Rodriguez MD smoking status Former smoker Ramsey Rodriguez MD social history reviewed E&M revi ewed - no changes required Ramsey Rodriguez MD social history E&M Smoking Histo ry: Usman girard is a former smoker. Ramsey Rodriguez MD social history E&M S moking History: Usman girard is a former smoker. Chencoh Cosby MD social history reviewed E&M revi ewed - no changes required Chencho Cosby MD smoking, year quit 2016 Viri ayers cigarette use yes Viri Tressa dinero smoking status Former smoker Viri Ortizliss mark social history reviewed E&M revi ewed - no changes required Ramsey Rodriguez MD smoking, year quit 2016 Viri ayers cigarette use yes Virijuan dinero smoking status Former smoker Viri Ortizliss mark social history reviewed E&M revi ewed - no changes required Ramsey Rodriguez MD social history E&M Smoking Histo ry: Usman girard is a former smoker. Gonzalo Clark smoking, year quit 2016 Viri Rex ayers cigarette use yes Viri Tressa dinero smoking status Former smoker Viri [facility]liss [facility] FUNCTIONAL STATUS Date Observation Value Provider HRA, CV Assess/Plan, Angina (inactive) Management Plan continue current therapy Shaina Babcock NP HRA, CV Assess/Plan, Angina (inactive) Management Plan continue current therapy Gonzalo [facility] HRA, CV Assess/Plan, Angina (inactive) Management Plan continue current therapy Gonzalo [facility] HRA, CV Assess/Plan, Angina (inactive) Management Plan continue current therapy Ramsey Rodriguez MD HRA, CV Assess/Plan, Angina (inactive) Management Plan continue current therapy Gonzalo [facility] HRA, CV Assess/Plan, Angina (inactive) Management Plan continue current therapy Ramsey Rodriguez MD HRA, CV Assess/Plan, Angina (inactive) Management Plan continue current therapy Chencho Cosby MD FAMILY HISTORY Family Member Condition Father Negative FH of Coron jose maria Artery Disease Mother Negative FH of Coron jose maria Artery Disease INSURANCE PROVIDERS Payer name Policy type / Coverage type [employer] green party ID [facility] [id number] ADVANCE DIRECTIVES Name Date DISCUSSED - NO DECISION MADE TREATMENT PLAN Date Name Performer [id number],S,R CA stenosis will check nuc stress test to see if things are worsened Angelique Abbasi MD [id number],C, B P today: 158/99 P rior BP: 136/82 (02/08/2020) Labs Reviewed: C reat: 0.83 (06/10/2018) C hol: 163 (06/10/2018) HDL: 49 (06/10/2018) LDL: 93 (06/10/2018) T (06/10/2018) His updated medication list for this problem includes: Hydrochlorothiazide 25 Mg Tablet (Hydrochlorothiazide) ..... Take 1 tablet by mouth daily Aspirin 81 81 Mg Oral Tablet Delayed Release (Aspirin) ..... One tab by mouth daily Accupril 40 Mg Oral Tablet (Quinapril hcl) ..... Once a day Angelique Abbasi MD [id number],C,get home slee p test Angelique Abbasi MD [id number],W,check carotid US Angelique Abbasi MD [id number],S,on valproic a tarah and carbamazepine Angelique Abbasi MD Cardiology: H is updated medication list for this problem includes: Stiolto Respimat 2.5-2.5 Mcg/actuation Mist (Tiotropium-olodaterol) ..... 2 puff once a day Shaina Andradecole MARQUEZ Cardiology: M anaged per PCP o n valproic acid Shaina Sadiq MARQUEZ Cardiology: n o new episodes Shaina Sadiq MARQUEZ Cardiology: N o reports of dizziness. Shaina Sadiq MARQUEZ Cardiology: B P today: 135/88 P rior BP: 171/108 (06/21/2023) P er patient his BP at home mostly 140-150s. Will add Toprolol XL 25 mg daily His updated medication list for this problem includes: Hydrochlorothiazide 25 Mg Tablet (Hydrochlorothiazide) ..... Take 1 tablet by mouth once a day Accupril 40 Mg Tablet (Quinapril) ..... Once a day Shaina Andradecole MARQUEZ Cardiology: H is updated medication list for this problem includes: Lipitor 40 Mg Tablet (Atorvastatin) ..... 1 tablet once a day W ill check labs Shaina Andradecole MARQUEZ Cardiology: 0 08/25/2016 c ardiac cath H EMODYNAMICS: AO: 180/80 pre, 180/97 post. LV: 170/20 pre, 180/22 post. There was no gradient across the aortic valve. RA: 12 mean. RV: 40/20. PA: 40/24. PCWP: 18 mean. LEFT CORONARY ARTERY: The left main coronary artery is normal. The left anterior descending is normal. The left circumflex artery is normal. RIGHT CORONARY ARTERY: The right coronary artery is the dominant vessel and c ontains 25% stenosis in the midsegment. LEFT VENTRICULOGRAM: Normal ejection fraction of 70%. RENAL ARTERY ANGIOGRAPHY: Right renal artery normal. Left renal artery normal. CONCLUSION: 1 . Mild CAD with 25% stenosis in the RCA. 2 . Normal EF of 70%. 3 . Normal renal arteries. 4 . Systemic hypertensin. 5 . Mild elevation of right and left heart filling pressures. Thank you very much for allowing me to participate in the care of this patient. If I can be of further assistance, please do not hesitate to call me. November 27, 2023 N o angina Shaina Babcock CORE MAN Cardiology:fell down from step stool. broke left fore arm needs surgery U renny review of invasive and noninvasive testing and recent exam the patient is an acceptable candidate for the planned ORTHOPEDIC WITH HIS LEFT WRIST surgical procedure recommend to maintain his blood pressure range of 110 to 140 mmHg and a heart rate of 60-80 B p.m.. It is okay to use IV beta blockers calcium channel blockers nitrates and afterload reducing agents to maintain the aforementioned hemodynamics parameters. Tele monitoring and EKG should be done if the patient has arrhythmia during procedure The patient denies episodes of chest pain nausea vomiting diaphoresis shortness of breath or TURPIN or pounding/palpitations or loss of consciousness or presyncopal events. EKG demonstrated no significant change compared to prior. We reviewed patient's prior invasive and noninvasive testing all questions were answered to their satisfaction. Angelique Abbasi MD Cardiology:no new ep isodes Angelique Abbasi MD Cardiology: 7 c ardiac cath H EMODYNAMICS: AO: 180/80 pre, 180/97 post. LV: 170/20 pre, 180/22 post. There was no gradient across the aortic valve. RA: 12 mean. RV: 40/20. PA: 40/24. PCWP: 18 mean. LEFT CORONARY ARTERY: The left main coronary artery is normal. The left anterior descending is normal. The left circumflex artery is normal. RIGHT CORONARY ARTERY: The right coronary artery is the dominant vessel and c ontains 25% stenosis in the midsegment. LEFT VENTRICULOGRAM: Normal ejection fraction of 70%. RENAL ARTERY ANGIOGRAPHY: Right renal artery normal. Left renal artery normal. CONCLUSION: 1 . Mild CAD with 25% stenosis in the RCA. 2 . Normal EF of 70%. 3 . Normal renal arteries. 4 . Systemic hypertensin. 5 . Mild elevation of right and left heart filling pressures. Thank you very much for allowing me to participate in the care of this patient. If I can be of further assistance, please do not hesitate to call me. Angelique Abbasi MD Cardiology:CONCLUSIO NS: 1 . Mild plaque with less than 50% stenosis of the internal carotid arteries bilaterally. 2 . Vertebral flow is antegrade bilaterally. E lectronically signed by Angelique Abbasi MD on 02/27/2023 at 11:08 AM CONCLUSIONS: 1 . Normal sinus rhythm. Nonspecific ST-T abnormality. 2 . Normal Regadenoson ECG with no ischemic ST or T changes, following vasodilator stress. 3 . Normal left ventricle size. 4 . Left Ventricular Ejection Fraction is 57 %. 5 . Normal myocardial perfusion imaging with no evidence of ischemia or scar. E lectronically signed by Angelique Abbasi MD on 02/27/2023 at 11:09 AM C ONCLUSIONS: 1 . Normal left ventricular systolic function. Normal left ventricular size. Mild concentric left ventricular hypertrophy. There is E to A wave reversal consistent with impaired LV relaxation. E/E': 6.6 Left ventricular ejection fraction is measured at 60 %. 2 . Normal right ventricular size. Normal right ventricular systolic function. 3 . Aortic valve leaflets appear structurally normal. Velocities, as well as gradients across the aortic valve are normal. Trace to m ild aortic valve regurgitation. 4 . Trace MR and TR. E lectronically Signed By: Kerry Abbasi MD, [facility] 2 023-10-13 22:57:50 CDT C C: Angelique Abbasi MD, [facility] Angelique Abbasi MD Cardiology:CONCLUSIO NS: 1 . Normal left ventricular systolic function. Normal left ventricular size. Mild concentric left ventricular hypertrophy. There is E to A wave reversal consistent with impaired LV relaxation. E/E': 6.6 Left ventricular ejection fraction is measured at 60 %. 2 . Normal right ventricular size. Normal right ventricular systolic function. 3 . Aortic valve leaflets appear structurally normal. Velocities, as well as gradients across the aortic valve are normal. Trace to m ild aortic valve regurgitation. 4 . Trace MR and TR. Angelique Abbasi MD Cardiology:CONCLUSIO NS: 1 . Normal sinus rhythm. Nonspecific ST-T abnormality. 2 . Normal Regadenoson ECG with no ischemic ST or T changes, following vasodilator stress. 3 . Normal left ventricle size. 4 . Left Ventricular Ejection Fraction is 57 %. 5 . Normal myocardial perfusion imaging with no evidence of ischemia or scar. B P today: 154/100 P rior BP: 158/99 (12/19/2022) L abs Reviewed: C reat: 0.83 (06/10/2018) C hol: 163 (06/10/2018) HDL: 49 (06/10/2018) LDL: 93 (06/10/2018) T (06/10/2018) Angelique Abbasi MD Cardiology:Home slee p study shows an AHI of 33.3 which is consistent with severe Sleep Apnea. During the supine position, the A HI increased to 60.6. Mean oxygen saturation of 91%, with the lowest being 82%. The patient spent 15.3 minutes at o r below 88%. Angelique Abbasi MD Cardiology: phillip sol carotid US February 27, 2023 CONCLUSIONS: 1 . Mild plaque with less than 50% stenosis of the internal carotid arteries bilaterally. 2 . Vertebral flow is antegrade bilaterally. He has hx of Tinitus, may need to be seen by ENT as he may have inner ear issue causing dizziness Angelique Abbasi MD Cardiology:RCA steno sis will check nuc stress test to see if things are worsened Angelique Abbasi MD Cardiology: B P today: 158/99 P rior BP: 136/82 (02/08/2020) Labs Reviewed: C reat: 0.83 (06/10/2018) C hol: 163 (06/10/2018) HDL: 49 (06/10/2018) LDL: 93 (06/10/2018) T (06/10/2018) His updated medication list for this problem includes: Hydrochlorothiazide 25 Mg Tablet (Hydrochlorothiazide) ..... Take 1 tablet by mouth daily Aspirin 81 81 Mg Oral Tablet Delayed Release (Aspirin) ..... One tab by mouth daily Accupril 40 Mg Oral Tablet (Quinapril hcl) ..... Once a day Angelique Abbasi MD Cardiology:get home sleep test S anastasiya Abbasi MD Cardiology:check carotid US Gabriela Abbasi MD Cardiology:on valproic acid and carbamazepine Angelique Abbasi MD Cardiology Follow up :No chest pain or SOB. His updated medication list for this problem includes: Aspirin 81 81 Mg Oral Tablet Delayed Release (Aspirin) ..... One tab by mouth daily Accupril 40 Mg Oral Tablet (Quinapril hcl) ..... Once a day Gonzalo [facility] Follow up :His updated medication list for this problem includes: Lipitor 40 Mg Oral Tablet (Atorvastatin calcium) ..... One tab. daily Gonzalo [facility] [place] [facility] Follow up :His dizziness has mostly resolved. He does check his BP daily and reports he has to take his Rx most days. We will continue current medications. BP today: 136/82 P rior BP: 148/90 (10/28/2019) His updated medication list for this problem includes: Hydrochlorothiazide 25 Mg Oral Tablet (Hydrochlorothiazide) ..... One tab daily Accupril 40 Mg Oral Tablet (Quinapril hcl) ..... Once a day [facility] Follow up :His dizziness has mostly resolved. He does check his BP daily and reports he has to take his Rx most days. [facility] Follow up :His dizziness has mostly resolved. He does check his BP daily and reports he has to take his Rx most days. Head CT showed no acute processes. [facility] Cardiology:His [facility] ed medication list for this problem includes: Lipitor 40 Mg Oral Tablet (Atorvastatin calcium) ..... One tab. daily [facility] Cardiology:The patie nt C/O dizziness. Upon standing up he feels like he is losing his balance. Shortly thereafter he feels better. Started about a week ago. No other Sx. Today he is orthostatic. BP sitting 148/90, standing 132/80. Will reduce Quinapril from 40mg daily to 20mg daily. He was advised not to take Rx when systolic BP is less than 150. Also advised him to increase hydration. Agreed with Dr. Donald that head CT is indicated. BP today: 148/90 P rior BP: 130/84 (10/01/2019) His updated medication list for this problem includes: Hydrochlorothiazide 25 Mg Oral Tablet (Hydrochlorothiazide) ..... One tab daily Accupril 20 Mg Oral Tablet (Quinapril hcl) ..... One tablet daily [facility] Cardiology:No chest pain or SOB. His updated medication list for this problem includes: Accupril 20 Mg Oral Tablet (Quinapril hcl) ..... One tablet daily [facility] Cardiology:The patie nt C/O dizziness. Upon standing up he feels like he is losing his balance. Shortly thereafter he feels better. Started about a week ago. No other Sx. Today he is orthostatic. BP sitting 148/90, standing 132/80. Will reduce Quinapril from 40mg daily to 20mg daily. He was advised not to take Rx when systolic BP is less than 150. Also advised him to increase hydration. Agreed with Dr. Donald that head CT is indicated. [facility] Cardiology:The patie nt C/O dizziness. Upon standing up he feels like he is losing his balance. Shortly thereafter he feels better. Started about a week ago. No other Sx. Today he is orthostatic. BP sitting 148/90, standing 132/80. Will reduce Quinapril from 40mg daily to 20mg daily. He was advised not to take Rx when systolic BP is less than 150. Also advised him to increase hydration. Agreed with Dr. Donald that head CT is indicated. Gonzalo [facility] [place] [facility]:BP today: 130/84 P rior BP: 150/90 (02/11/2019) His updated medication list for this problem includes: Hydrochlorothiazide 25 Mg Oral Tablet (Hydrochlorothiazide) ..... One tab daily Quinapril 40mg Tablets (Quinapril hcl) ..... Take 1 tablet by mouth daily [facility] Cardiology:Recommend to keep LDL less than 70. CHOL: 163 (06/10/2018) LDL: 93 (06/10/2018) HDL: 49 (06/10/2018) T (06/10/2018) His updated medication list for this problem includes: Lipitor 20 Mg Oral Tablet (Atorvastatin calcium) ..... Take one pill a day [facility] Cardiology:Advised t o avoid smoking and tobbaco products. 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 Described as a knife stabbing. Worse with deep breaths and lasted about 30 min. No SOB. Resolved spontaneusely. He was admitted to [place]. He was told NE was ruled out and echo was normal. Since discharge had some milder pain. No pain now. In 2017 cath showed mild CAD in the RCA. In 2018 was admitted to [facility] with CP and dobutamine stress echo was normal. The pain does not appear to be ischemic. Recommend to consider GI work up and try PPI. His updated medication list for this problem includes: Quinapril 40mg Tablets (Quinapril hcl) ..... 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 Described as a knife stabbing. Worse with deep breaths and lasted about 30 min. No SOB. Resolved spontaneusely. He was admitted to [place]. He was told NE was ruled out and echo was normal. Since discharge had some milder pain. No pain now. In 2016 cath showed mild CAD in the RCA. In 2018 was admitted to [facility] with CP and dobutamine stress echo was normal. The pain does not appear to be ischemic. Recommended to consider GI work up and try PPI. If pain recurs we will consider CT chest with contrast and possibly repeat a stress test. [facility] Cardiology:CHOL: 163 (06/10/2018) HDL: 49 (06/10/2018) T (06/10/2018) LDL: 93 (06/10/2018) His updated medication list for this problem includes: Lipitor 20 Mg Oral Tablet (Atorvastatin calcium) ..... Take one pill a day [facility] Cardiology:BP is jonathan vated and we will add HCTZ 25mg daily. We will obtain a f/u echo. BP today: 150/90 P rior BP: 142/90 (12/20/2017) His updated medication list for this problem includes: Hydrochlorothiazide 25 Mg Oral Tablet (Hydrochlorothiazide) ..... One tab daily Quinapril 40mg Tablets (Quinapril hcl) ..... Take 1 tablet by mouth daily [facility] Gonzalo hernandez Cardiology:Denies ch est pain. We will obtain a f/u echo. His updated medication list for this problem includes: Quinapril 40mg Tablets (Quinapril hcl) ..... Take 1 tablet by mouth daily [facility] follow up:Will order echo. Octavio Dejesus MD Cardiology follow up:Will order echo. Octavio Dejesus MD Cardiology follow up : B P today: 142/90 P rior BP: 140/80 (11/19/2016) His updated medication list for this problem includes: Quinapril Hcl 40 Mg Oral Tablet (Quinapril hcl) ..... One tablet daily Octavio Dejesus MD Cardiology:Weight loss advised. [facility]:Orders: P ulmonology (*) [facility] Cardiology:CHOL: 215 .0 (11/09/2016) HDL: 47.0 (11/09/2016) T.0 (11/09/2016) LDL: 140.6 (11/09/2016) His updated medication list for this problem includes: Lipitor 20 Mg Oral Tabs (Atorvastatin calcium) ..... Take one pill a day [facility] Cardiology:BP today: 140/80 P rior BP: 150/86 (11/08/2016) His updated medication list for this problem includes: Quinapril Hcl 40 Mg Tabs (Quinapril hcl) ..... 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 [facility] Cardiology:Cardiac c ath did not show significant CAD. EF was normal. He continues to be dyspneic and I recommend pulmonary consultation. [facility] Follow up :LARGE 10/30 AND 10/31, CAN TAKE ONE MONTH TO GET BETTER, CAN REPEAT CT, IF GRWOING WE CAN DO COVERRED STENT? Chencho Cosby MD Cardiology Follow up :25% RCA, NML LV, PAP 40, BLEEDING POST CATH Chencho Cosby MD Cardiology Follow up:NML ANGIO H chace Cosby MD Cardiology Follow up:Followed by pulmonary. Gonzalo [facility] Follow up :His updated medication list for this problem includes: Valproic Acid 250 Mg Oral Caps (Valproic acid) ..... 2 to 4 times a day Carbamazepine Er 300 Mg Oral [id number] (Carbamazepine) ..... 2 pills twice a day Gonzalo [facility] [place] [facility] Follow up :Renal artery duplex was normal. Today we will increase Quinapril to 40mg daily. BP today: 170/100 P rior BP: 160/110 (09/26/2016) Gonzalo Eduardo [facility] Follow up :Echo showed normal EF. ProBNP was normal. The pt is not a good candidate for a stress test or regadenosine due to dyspnea. Will schedule cardiac cath. [facility] New Patient Gonzalo [facility] [place] [facility] New Patient:Mild per pulmonary. [facility] New Patie nt:BP today: 160/110 His updated medication list for this problem includes: Quinapril Hcl 10 Mg Oral Tabs (Quinapril hcl) ..... Take two tablets daily <--- Dose increased [facility] New Patie nt:Complaining of SOB with minimal exertion for about 6 months. Pulmonary workup was essentially negative. Will obtain an echo, CBC, BMP, proBNP and iron studies. Gonzalo [facility]illiams[facility] Date Name EKG LIPID PANEL EKG Sleep Study Titratio n Carotid Duplex Bilat eral Monitor - Telemetry (Mobile Cardiac) Sleep Study Home Stress Regadenoson Complete Echo CT Head without cont rast CT Head without cont rast Complete Echo Complete Echo LIPID PANEL CT Abdomen w/ contra st BASIC METABOLIC PANE L W/EGFR Partial Thromboplast in Time, Activated PROTHROMBIN TIME WIT H INR CBC (INCLUDES DIFF/P LT) Cardiac Cath - L/R- [facility] VITAMIN B12 RETICULOCYTE COUNT IRON AND TOTAL IRON BINDING CAPACITY FOLATE, SERUM FERRITIN CBC (INCLUDES DIFF/P LT) PROBNP, N TERMINAL BASIC METABOLIC PANE L W/EGFR Complete Echo Renal Artery Duplex HISTORY OF PROCEDURES Procedure Date Procedure Name Provider Procedure Notes S tatus EKG Angelique Abbasi MD completed EKG Angelique Abbasi MD completed EKG Ramsey Rodriguez MD completed EKG Ramsey Rodriguez MD completed EKG Octavio Dejesus MD completed SNOMED-CT: 515981651 [id number] Current Medications Documented Ramsey Rodriguez MD completed SNOMED-CT: [id number] Current Medications Documented Chencho Cosby MD completed SNOMED-CT: [id number] Current Medications Documented Ramsey Rodriguez MD completed EKG Ramsey Rodriguez MD completed SNOMED-CT: [id number] Current Medications Documented Ramsey Rodriguez MD completed
--- OUTSIDE RECORDS SUMMARY | 2024-03-22 20:46 | XMS_ITS | Encounter Summary ---
Author Organization [facility] Healthcare Address [address] [place] [address] Care Team Providers Care Cupola Man Name Role Phone Stephan Donald MD Primary Care Provide r Reason for Referral * (Routine) - Closed Specialty Diagnoses / Procedures Referred By Contac t Referred To Contact Diagnoses TIA (transient ischemic attack) Procedures Miscellaneous DME Miscellaneous DME Maynor Santos NP [address] [place] [address] Phone: tel: fax: Referral ID Status Reason Start Date Expiration Date Visits Re quested Visits Authorized [id number] Closed 05/22/2021 06/21/2022 1 1 ER LAYER Reason for Visit * Reason Comments Unable to speak Encounter Details Date Type Department Care Team (Late st Contact Info) Description 05/21/2021 7:40 PM BINDER LAYER - 05/24/2021 2:58 PM BINDER LAYER Hospital Encounter [facility] [address] [place] [address] Sukhdev Chaudhary MD [address] [place] [address] Elsa Rowell MD [address] [place] [id number] Erna Schilling MD [address] [place] [address] TIA (transient ischemic attack) (Primary Dx); Dysarthria Discharge Disposition: Discharge to home, home health skilled care Social History Tobacco Use Types Packs/Day [...] on file Legal Sex Male 2:59 AM BINDER LAYER Gender Identity Not on file Sexual Orientation Not on file documented as of this encounter Last Filed Vital Signs Vital Sign Reading Time Taken Comments Blood Pressure 138/99 05/24/2021 11:15 AM BINDER LAYER Pulse 74 05/24/2021 11:15 AM BINDER LAYER Temperature 36.5 ??C (97.7 ??F) 05/24/2021 11:[address] Respiratory Rate 18 05/24/2021 11:15 AM BINDER LAYER Oxygen Saturation 94% 05/24/2021 11:15 AM BINDER LAYER Inhaled Oxygen Concentration - - Weight 102.1 kg (225 lb) 05/21/2021 7:44 PM BINDER LAYER Height 177.8 cm (5' 10 ) 05/21/2021 7:44 PM BINDER LAYER Body Mass Index 32.28 05/21/2021 7:44 PM BINDER LAYER documented in this encounter Discharge Diagnoses Diagnosis Transient cerebral ischemic attack, unspecified - TRANSIENT CEREBRAL ISCHEMIC ATTACK, UNSPECIFIED Other generalized epilepsy and epileptic syndromes, not intractable, without status epilepticus (HCC) - OTHER GENERALIZED EPILEPSY AND EPILEPTIC SYNDROMES, NOT INTRACTABLE, WITHOUT STATUS EPILEPTICUS Essential (primary) hypertension - ESSENTIAL (PRIMARY) HYPERTENSION Unspecified essential hypertension Chronic obstructive pulmonary disease, unspecified (HCC) - CHRONIC OBSTRUCTIVE PULMONARY DISEASE, UNSPECIFIED Aphasia - APHASIA Dysarthria and anarthria - DYSARTHRIA AND ANARTHRIA Nihss score 1 - NIHSS SCORE 1 Atherosclerotic heart disease of [place] coronary artery without angina pectoris - ATHEROSCLEROTIC HEART DISEASE OF [place] CORONARY ARTERY WITHOUT ANGINA PECTORIS Hyperlipidemia, unspecified - HYPERLIPIDEMIA, UNSPECIFIED Personal history of nicotine dependence - PERSONAL HISTORY OF NICOTINE DEPENDENCE documented in this encounter Discharge Summaries * Rohini Isaac MD - 05/24/2021 12:07 PM CST Inpatient Discharge Summary BRIEF OVERVIEW Admitting Provider: Erna Schilling MD Discharge Provider: Erna Schilling MD Primary Care Physician at Discharge: Annabelle Donald MD [phone] Admission Date: 05/21/2021 Discharge Date: 05/24/2021 Admission Location: [facility] Problems/Diagnoses: Principal Problem: TIA (transient ischemic attack) Resolved Problems: No resolved hospital problems. DETAILS OF HOSPITAL STAY Presenting Problem/History of Present Illness: History obtained via patient (reliable) and chart review. At his baseline, Mr. Recio is independent in ADLs/IADLs, ambulates without assistance, and has no baseline neurologic deficits. ?? Upon arrival to the [facility] ED, blood pressure 176/101, blood glucose 118. NIHSS [address] head without contrast showing NAIA. CTA head and neck W/WO (not obtained during acute stroke protocol) without occlusion or significant stenosis. NO GO for tPA given rapidly improving symptoms. NO GO for thrombectomy given no LVO. Initial labs notable for normal CBC, CMP, electrolytes, TSH, troponins. AED levels with Valproate 29 (previously 45 in 08/2020), Carbamazepine 8.1. ECG showing NSR. ?? Patient was in his usual state of health when at 18:45 he experienced sudden onset slurred speech and word finding difficulty. He described this as being able to think of the words he wanted to say but having trouble mechanically getting them out. This was witnessed by both daughter and EMS. Per EMS report to Neurology consult resident during code stroke evaluation, they felt this speech difficulty was somewhat intermittent, but had greatly improved by the time they arrived to the hospital.??The ED attending also reportedly witnessed both the patient's dysarthria and word production difficulty and felt that it had significant improved shortly upon arrival to the ED. At the time of code stroke evaluation, the patient stated he felt close to his baseline.??He endorsed mild dizziness with this episode, but specifically denied vertiginous symptoms, nausea. ?? Both the patient and his daughter report no similar episode in the past. Sometimes he may become mildly dysarthric immediately before or after a seizure, but his only known seizure semiology is GTC. Patient reports no seizures for the past 30 years. He has never been witnessed to have staring spells, focal motor seizures, or automatisms. He denied using any substances including alcohol, tobacco, illicits, marijuana, CBD. Patient and daughter endorse compliance with AEDs.??His AED regimen is Carbamazepine ER 600 BID and Valproate 500 QID. ?? Regarding his diagnosis of vasculitis, the patient presented in mid-2020 with bloody diarrhea, abdominal pain, microscopic hematuria, and rash. Skin biopsy demonstrated superficial and mid-dermal perivascular interstitial mixed inflammatory cell infiltrate. There was no significant immunofluorescence staining. CTA head and neck at that time showed no evidence of intracranial involvement.??It was suspected that this represented small vessel vasculitis and the patient was treated successfully with PO prednisone taper. It was considered somewhat atypical that there was no IgA immunofluorescence on skin biopsy. Hospital Course: Humza Recio is a 71 y.o. male with a past medical history significant for generalized epilepsy,HTN, HLD, CAD, COPD, small-vessel vasculitis (colon, skin), and chronic pain (DJD) who presented on05/21 with sudden onset dysarthria and word finding difficulty as witnessed by daughter that gradually improved upon arrival to [facility] ED. Last known at baseline on 05/21 just prior to onset of symptoms at 1845. NIHSS 1 (dysarthria) on initial assessment. CT head non-con with no acute abnormalities. NO GO for tPA given rapid improvement of symptoms. NO GO for thrombectomy as CTA/CTP not pursued given low NIHSS. Patient was admitted o the stroke service for further management. # Intermittent dysarthria and expressive aphasia: TIA vs functional Following admission, patient treated as TIA given initial resolution of symptoms and ABCD2 score 5.He underwent TIA workup as detailed below. He then had a similar event witnessed by our staff on 05/22 that was described similar to the event that brought him here. On witnessed event patient had impaired fluency (very effortful, slow speech) but intact naming, repetition, comprehension. His attention was intact and he was able to point out where in the room the stroke cards were located. He was complaining of heart beating hard as well. BP elevated to 190s systolic. Symptoms resolved after afew minutes. We obtained a rEEG that only showed mild gen slowing. Due to this event, we pursued a bMRI wo contrast that showed no acute stroke. As for consideration for TIA, workup as follows: Workup for risk factor modification revealed: ??? Hemoglobin A1c 5.8, LDL 64 ??? ECG showed NSR ??? CTA head and neck W/WO: unremarkable ??? MRI: No acute stroke ??? TTE EF 78%, mild LV hypertrophy, negative bubble study He given a load of ASA 325 and Plavix 300 mg, and continued on aspirin 81 mg PO qD indefinitely andPlavix 75 mg PO qD x21 days for secondary prevention (CHANCE trial: minor stroke NIHSS =< 3 or high-risk TIA ABCD2 >= 4). Last day of Plavix would be (06/11/21). He was placed on a loop recorder on discharge for 30 days to monitor for any cardiac arrhythmias. He was started on atorvastatin 80 mg PO qHS (SPARCL trial). The current [place] Stroke Associationguidelines recommend long-term treatment with a high-intensity statin even in patient's with LDL level <100, if tolerated. (The SPARCL trial, Romana et al. 2010, showed that statin treatment shouldnot be titrated to LDL level.) SMART Consult was performed and PT/OT recommended discharge to home with home health. The patient will follow up in the [facility] clinic with his Neurologist. Risk factors were optimized on discharge. Patient and family were advised regarding the risks of new stroke, signs and symptoms of stroke, and how best to avoid a further event. Other medical issues: # Epilepsy Reportedly seizure-free for past 30 years We continued home Carbamazepine 600 BID, Valproate 500 QID # HTN Home meds HCTZ 25 daily, Losartan 50 daily held during admission and restarted at discharge. # HLD We continued home Atorvastatin 80 daily # CAD We continued home ASA, Atorvastatin as above # COPD Tiotropium-olodaterol (Stiolto) at home. We had him on formulary alternative Anoro Ellipta while inpatient #Prediabetes A1C 5.8. Patient to continue to follow up with primary care physician. Active Issues Requiring Follow-up: Follow up with o/p neurologist at [facility] Neurology Test Results Pending at Discharge: None Operative Procedures Performed: None Other Procedures: See above Pertinent Test Results: See above Discharge Details Physical Exam at Discharge: Discharge Condition: stable Pulse: 74 Resp: 18 BP: 138/99 Temp: 36.5 ??C (97.7 ??F) Weight: 102.1 kg (225 lb) Pertinent Exam Findings at Discharge: GENERAL EXAMINATION CONSTITUTIONAL: The patient is well appearing/well nourished, pleasant, comfortable. HEENT & NECK: The head is normocephalic and atraumatic. Conjunctiva are clear without injection; the oropharynx is clear. CARDIOVASCULAR: Extremities are warm and well perfused; there is no peripheral edema. RESPIRATORY: Normal WOB on RA ?? NEUROLOGIC EXAM: Mental Status:The patient is alert and oriented to person, place, time and reason for visit. Attention is intact. Language: The patient has fluent speech and follows commands. Cranial Nerves II-XII: Visual carvalho are full. PERRL. Extraocular movements are full and without nystagmus. V1-3 is intactto light touch bilaterally. Face is symmetric, hearing is intact bilaterally and palate is up-goingbilaterally. There is no dysarthria. Motor: Strength is 5/5 throughout. Muscle tone and bulk are normal. There is no pronator drift. Finger tapping is normal bilaterally. Reflexes: Reflexes are 2+ at the biceps, brachioradialis and patellae. Absent Lan. Sensation: Light touch is normal in all four extremities. Coordination: Finger to nose is normal bilaterally. Ambulation:Gait is narrow-based with normal arm swing. Discharge Disposition: Home with Code Status at Discharge: Full Discharge Instructions: You were seen in the hospital for symptoms worrisome for a TIA. Please take the following medications to reduce your future risk of stroke: ?? -Aspirin 81mg daily indefinitely -Plavix 75mg Until 06/11/21 -Atorvastatin 80mg daily indefinitely ?? Please continue your other home medications as before. Your blood work showed that you are prediabetic. Please discuss continued blood sugar monitoring with your primary care physician. ?? Follow Up: Please continue to follow up with your outpatient neurologist (Julio Aaron, [employer] DAMAGE TRAINEE-GONZALO) at [facility]. Other Instructions Ambulatory referral to Home Health Service Line: Home Health Primary disciplines requested: Correction Physical Therapy Secondary disciplines requested: Occupational Therapy Home Health Services: Therapy to Eval/ Treat Physician to follow patient's care (the person listed here will be responsible for signing ongoing orders): PCP Requested Start of Care Date: Tomorrow I attest that I or another qualified licensed provider saw the patient 90 days prior to or 30 days post admission and this face to face encounter meets the necessary Home Health requirements. The face to face encounter occurred on (date): 05/22/2021 The encounter with the patient was in whole, or in part, for the following medical condition, whichis the primary reason for home health care. (List medical condition): TIA I certify that, based on my findings, the following services are medically necessary skilled home health services: Therapy to Eval/ Treat Clinical findings that support the need for home care: Medical condition requiring skilled assessment/education I certify that my clinical findings support patient's homebound status. Homebound criteria met because: Abnormal gait/unsteady balance resulting in fall risk Miscellaneous DME Name/type: Wheeled Walker The [id number] evaluation was performed on: 05/22/2021 DME services provided by: [facility] Home Health: [facility] Contact Number: [phone] Services: Physical therapy, Occupational therapy The [employer] [facility] company will be contacting you to set up a start of care date. If you have any questions or the [employer] health company has not contacted you, please contact the home health company directly. The contact number is listed above. Thank you! [facility] will provide you with a wheeled walker. Discharge Medications: Current Medications TAKE these medications aspirin 81 mg enteric coated tablet Take 1 tablet (81 mg total) by mouth daily atorvastatin 40 mg tablet Take 2 tablets (80 mg total) by mouth daily Commonly known as: LIPITOR carBAMazepine ER 300 mg 12 hr capsule daily Commonly known as: CARBATROL clopidogreL 75 mg tablet Take 1 tablet (75 mg total) by mouth daily for 19 doses Commonly known as: PLAVIX Start taking on: May 25, 2021 fluticasone propionate 50 mcg/actuation nasal spray fluticasone propionate 50 mcg/actuation nasal spray,suspension SHAKE LIQUID AND USE 1 SPRAY IN EACH NOSTRIL EVERY DAY Commonly known as: FLONASE hydroCHLOROthiazide 25 mg tablet 25 mg daily Commonly known as: HYDRODIURIL loratadine 10 mg tablet Take 10 mg by mouth daily as needed Commonly known as: CLARITIN losartan 50 mg tablet Take 1 tablet (50 mg total) by mouth daily Commonly known as: COZAAR MULTIVITAMIN 50 PLUS ORAL Take by mouth pantoprazole DR 40 mg EC tablet Take 1 tablet (40 mg total) by mouth daily Commonly known as: PROTONIX rOPINIRole 0.5 mg tablet ropinirole 0.5 mg tablet TAKE 1 TABLET BY MOUTH EVERY NIGHT AT BEDTIME Commonly known as: REQUIP tiotropium-olodateroL 2.5-2.5 mcg/actuation inhaler Stiolto Respimat 2.5 mcg-2.5 mcg/actuation solution for inhalation Commonly known as: STIOLTO valproate 250 mg capsule valproic acid 250 mg capsule TK 2 CS PO QAM AND 2 CS PO AT NOON AND 5PM THEN 2 CS PO QHS Commonly known as: DEPAKENE Outpatient Follow-Up: Future Appointments Date Time Provider Department Center 12/22/2021 10:30 AM José Miguel Piedra MD [facility] Contact Information for Follow-ups [facility] Home Care Services Specialty: Home Health and Hospice [facility] [address] Next Steps: Follow up Questions: Service Line: Home Health Primary disciplines requested: Correction Physical Therapy Secondary disciplines requested: Occupational Therapy Home Health Services: Therapy to Eval/ Treat Physician to follow patient's care (the person listed here will be responsible for signing ongoing orders): PCP Requested Start of Care Date: Tomorrow I attest that I or another qualified licensed provider saw the patient 90 days prior to or 30 days post admission and this face to face encounter meets the necessary Home Health requirements. The face to face encounter occurred on (date): 05/22/2021 The encounter with the patient was in whole, or in part, for the following medical condition, whichis the primary reason for home health care. (List medical condition): TIA I certify that, based on my findings, the following services are medically necessary skilled home health services: Therapy to Eval/ Treat Clinical findings that support the need for home care: Medical condition requiring skilled assessment/education I certify that my clinical findings support patient's homebound status. Homebound criteria met because: Abnormal gait/unsteady balance resulting in fall risk Referral Status: Pending Authorization Annabelle Donald MD Specialty: Internal Medicine Relationship: PCP - General [address] [address] Next Steps: Follow up Cosigned by Erna Schilling MD at 05/24/2021 7:19 PM BINDER LAYER ER LAYER ER LAYER ER LAYER Associated attestation - Erna Schilling MD - 05/24/2021 7:19 PM BINDER LAYER I have seen and examined the patient on 05/24/21. I agree with the findings and plan of care as documented in the resident's/fellow's note. Possible TIA as below. Expedited workup showed no substantial carotid stenosis. MRI was negative. Continued antiplatelet therapy and statin and antiepileptic therapies. Dual antiplatelet initiated for possible TIA x 21 days, then monotherapy. documented in this encounter Discharge Instructions * Discharge Instructions* Russ Mccann MD - 05/24/2021 12:50 PM BINDER LAYER You were seen in the hospital for symptoms worrisome for a TIA vs possibly a functional neurological disorder. To be safe, we are prescribing you the following medications to reduce your future risk of stroke: -Aspirin 81mg daily indefinitely -Plavix 75mg Until 06/11/21 -Atorvastatin 80mg daily indefinitely Please also go to [email or web address] to find out more information about functional neurological symptoms. Please continue your other home medications as before. Your blood work showed that you are prediabetic. Please discuss continued blood sugar monitoring with your primary care physician. Follow Up: Please continue to follow up with your outpatient neurologist (Julio Aaron, [employer]O DAMAGE TRAINEE-[employer]ON[employer]SPORT TECHNICIAN) at [facility]. Call Your Doctor If: CALL 911 IF YOU HAVE NEW SIGNS OF A STROKE, SUCH : * Your arm, leg or face suddenly becomes numb; especially on one side of your body. * You suddenly become confused or have a hard time talking. * You began having double vision or are not able to see in one or both eyes. * You have a hard time walking, become dizzy or feel like you may fall. * Your head begins to hurt very badly. Activity: Follow the instructions given to you by Physical Therapy and Occupational Therapy. Additional Information: LIFESTYLE CHANGES TO REDUCE STROKE / TIA RISK: * If you smoke, STOP - smoking doubles your risk of stroke. Discuss aids to quit smoking with your primary care doctor. * If you drink alcohol, no more than one drink per day - more than this increases your risk of stroke. (One drink means 1.5 ounces of hard liquor, 4 ounces of wine or 12 ounces of beer.) * High blood pressure is a leading cause of stroke. If you have it, work with your doctor to control it. * Include exercise in your daily routine. Check with your primary doctor regarding exercise restrictions. * If you are overweight, discuss weight loss with you primary doctor. This helps control high bloodpressure, diabetes, and high cholesterol. ER LAYER * Appointments* Jennifer Rehman RN - 05/22/2021 3:14 PM BINDER LAYER This is the first available appointment with your PCP. Please arrive 15 minutes early and bring your insurance card, medication list and discharge paperwork to your appointment. If you are unable to make your appointment or need to be seen sooner, please call office to reschedule. Thank you! ER LAYER * Discharge Instr - Other Orders* Jennifer Rehman RN - 05/22/2021 3:46 PM BINDER LAYER Home Health: [facility] Contact Number: [phone] Services: Physical therapy, Occupational therapy The [employer] will be contacting you to set up a start of care date. If you have any questions or the [employer] has not contacted you, please contact the [employer] directly. The contact number is listed above. Thank you! [facility] will provide you with a wheeled walker. ER LAYER documented in this encounter Medications at Time of Discharge [...] AND 5PM THEN 2 CS PO QHS documented as of this encounter Ordered Prescriptions Prescription Sig Dispense Quantity Refills Last Filled Start Date End Date clopidogreL (PLAVIX) 75 mg tablet Take 1 tablet (75 mg total) by mouth daily for 19 doses 19 tablet 05/25/2021 aspirin 81 mg enteric coated tablet Take 1 tablet (81 mg total) by mouth daily 30 tablet 11 05/24/2021 documented in this encounter Discharge Disposition Disposition Code Departure Means Destination Discharge to home, home health skilled care documented in this encounter Progress Notes * Jennifer Rehman RN - 05/24/2021 1:41 PM CST 05/22/21 1034 Discharge Summary Chart reviewed For Medical Necessity Does patient have a planned readmission to hospital planned? No Discharge Disposition Home;Home with DME;Home with Home Health (PT/OT/RN) Equipment/Provider Needs Home Provider Services Needs Identified Home Care Agency Information Home Care Agency Type #1: (PT/OT) Home Care Agency Name [facility] Home Care Agency Contact Spoken to [facility] Order Faxed to [phone] Second Home Care Agency Used? Not Needed Home Equipment Information Home Equipment Provider Name -- Home Equipment Provider Phone Number -- Home Equipment Provider Contact Spoken to -- Home Equipment Provider Order Faxed to -- Equipment Ordered -- Second Home Eqp Provider Used? Not Needed Discharge Additional Assistance Does the patient need discharge transport arranged? No (Daughter or friend will provide discharge transportation) Post Discharge Care Provider Post Discharge Care Plan DC Summary has been faxed to next level of care provider (see Follow Up Providers) Per medical team, patient is medically stable to discharge at this time. Prescriptions sent to [facility]. Patient will have transportation provided by the patient's daughter. Patient has support at home from his daughter. Patient has PCP follow up with Annabelle Donald MD on 05/25 @ 1501. Patient [facility] HH from [facility]. No additional needs noted at this time. Patient and/or family are agreeable to discharge plan. ADD: Today ER LAYER * Gypsy Perez, PT - 05/24/2021 10:37 AM CST Physical Therapy Progress Note NOTE: This is a summary note of the patel components of the treatment session. For full details, review chart for all flowsheets documented on by this physical therapy clinician on this date. Vital signs documented in vital signs flowsheet. Care plan progress documented in Care Plan Activity. For questions, please review the treatment team and contact the PT or [employer] currently assigned to this patient. If a physical therapy clinician is not assigned to this patient, please call [phone]. 05/24/21 1037 PT Last Visit Session Type Treatment PT Received On 05/24/21 Safe Environment Arm Band Checked;Call Light within Reach (pt found seated EOB, end of session pt supine in bed with all needs met) Subjective Agreeable to Therapy Family/Caregiver Present No Precautions Precautions Fall risk;Seizure Activity Tolerance Activity Tolerance Comments Khadijah: somewhat hard ambulating with no AD, fairly light ambulating withWW Pain Assessment Pain Assessment No/denies pain Cognition Arousal/Alertness Alert;Appropriate responses to stimuli Orientation Oriented X4 (person, place, time, situation) Following Commands Follows all commands and directions without difficulty Safety Judgment Good awareness of safety precautions Balance Balance Yes Static Sitting Balance Static Sitting-Balance Support No upper extremity supported;Feet supported Static Sitting-Sitting Surface Bed Static Sitting-Level of Assistance Independent Static Standing Balance Static Standing-Balance Support No upper extremity supported Static Standing-Standing Surface Floor Static Standing-Level of Assistance Close supervision Static Standing-Comment/# of Minutes SPV for safety Equipment Use Equipment Use Comments gait belt donned for all OOB mobility Bed Mobility Bed Mobility Yes Bed Mobility 1 Bed Mobility From 1 Supine Bed Mobility Type 1 To and from Bed Mobility to 1 Edge of bed Level of Assistance 1 Modified Independent Bed Mobility Comments 1 HOB elevated, performed sit to supine transfer x2, supine to sit transfer x1 Transfers Transfer Yes Transfer 1 Transfer From 1 Sit Transfer Type 1 To and from Transfer to 1 Stand Technique 1 Sit to stand;Stand to sit Transfer Device 1 No device Transfer Level of Assistance 1 Standby Assist Trials/Comments 1 x2 trials, SBA for safety Ambulation Ambulation Yes Ambulation 1 Distance (ft) 1 10 + 70 Surface 1 Level tile Device 1 No device Assistance 1 Contact Guard Assist Gait: Requires assist with 1 Maintaining balance Gait: Requires verbal cues to 1 Improve upright posture;Increase step length;Pace activity;Increasebase of support Quality of Gait 1 increased lateral trunk sway, small [place], decreased betzaida, decreased step length Ambulation 2 Distance (ft) 2 80 Surface 2 Level tile Device 2 Wheeled walker Assistance 2 Standby Assist Gait: Requires verbal cues to 2 Use assistive device safely;Improve upright posture;Increase step length;Pace activity Quality of Gait 2 decreased betzaida, decreased step length Ambulation Comments 2 improved steadiness while ambulating with WW compared to no device Stairs Stairs No Stair Comments Pt reports 1 small threshold into house, PT reviewed technique for up/down curb stepwith WW but pt stated he has done it before and prefers to defer stair training today. Other Comments Other PT Comments Pt participated well in therapy, and states he may be going home today. Pt stateshis daughter will be staying with him for FTA initially upon discharge, and states he has a WW at home. PT discussed recommendation to use WW multimedia designer upon initial discharge home, progress to less resistive device with HHPT. Pt agreeable with HHPT and agreeable with PT POC. Pt reports no further concerns for safe discharge home. Basic Mobility - 6 Click How much difficulty does the patient have: Turning over in bed 4 How much difficulty does the patient currently have: Sitting down and standing up from a chair witharms? 3 How much difficulty does the patient have: Moving from lying on back to sitting on the side of the bed? 4 How much difficulty does the patient have: Moving to and from a bed to a chair including wheelchair? 3 How much help does the patient currently need: Walk in hospital room? 3 How much help from another person does the patient currently need: Climbing 3-5 steps with a railing? 3 Total 6 Click Score (range 6-24) 20 Score Interpretation 43.99 Assessment Prognosis Good Problem List Gait deviations;Decreased strength;Decreased endurance;Impaired balance;Decreased mobility Barriers to Discharge Current Mobility Status Plan Plan Continue with current plan;If this is the last note, consider this the discharge summary Recommendation/Plan PT Recommendation/Plan Home with family;Home with 24 hour supervision;Home Health PT PT Recommendation/Plan Comments Pt agreeable with PT POC, agreeable with HHPT PT Frequency 3-5x/wk Treatment/Interventions Balance Training;Bed mobility;Endurance training;Gait training;Strengthening;Therapeutic activity;Therapeutic exercise;Transfer training PT Equipment Recommended None (pt states he has WW) Progress Progressing toward goals PT - Next Appointment 05/26/21 PT - OK to Discharge Yes Multi-Disciplinary Problems (from Physical Therapy) Active Problems Problem: Mobility Start Date: 05/22/21 Goal Start Date Expected End Date End Date LTG - Patient will ambulate community distance with LRD and mod I 05/22/21 07/22/21 -- Goal Start Date Expected End Date End Date STG - Patient will ambulate 250' with AAD, mod I 05/22/21 06/05/21 -- Problem: Transfers Start Date: 05/22/21 Goal Start Date Expected End Date End Date STG - Patient will transfer sit to and from stand with AAD, mod I 05/22/21 06/05/21 -- ER LAYER * Beni Burr MD - 05/24/2021 9:33 AM CST Neurology Stroke Daily Progress Note SUBJECTIVE Humza Recio is a 71 y.o. male with a past medical history significant for generalized epilepsy,HTN, HLD, CAD, COPD, small-vessel vasculitis (colon, skin), and chronic pain (DJD) who presented on05/21 with sudden onset dysarthria and word finding difficulty as witnessed by daughter that gradually improved upon arrival to [facility] ED. Last known at baseline on 05/21 just prior to onset of symptoms at 1845. NIHSS 1 (dysarthria) on initial assessment. CT head non-con with no acute abnormalities. NO GO for tPA given rapid improvement of symptoms. NO GO for thrombectomy as CTA/CTP not pursued given low NIHSS. Interval Events: - NAEO - MRI brain without evidence of stroke or other acute lesion Medications Current Facility-Administered Medications Medication Dose Route Frequency Last Rate Last Admin ??? acetaminophen (TYLENOL) tablet 650 mg 650 mg oral Q4H PRN ??? aspirin tablet 325 mg 325 mg oral Daily 325 mg at 05/24/21806 Or ??? aspirin suppository 300 mg 300 mg rectal Daily ??? atorvastatin (LIPITOR) tablet 80 mg 80 mg oral Daily 80 mg at 05/24/21806 ??? bisacodyL (DULCOLAX) suppository 10 mg 10 mg rectal Daily PRN ??? bisacodyl EC (DULCOLAX EC) tablet 10 mg 10 mg oral Daily PRN ??? carBAMazepine XR (TEGretol XR) extended release tablet 600 mg 600 mg oral BID 600 mg at 05/24/21806 ??? clopidogreL (PLAVIX) tablet 75 mg 75 mg oral Daily 75 mg at 05/24/21806 ??? enoxaparin (LOVENOX) syringe 40 mg 40 mg subcutaneous Daily-2100 40 mg at 05/23/212031 ??? fluticasone propionate (FLONASE) 50 mcg/actuation nasal spray 1 spray 1 spray each nostril Daily 1 spray at 05/24/21808 ??? loratadine (CLARITIN) tablet 10 mg 10 mg oral Daily PRN ??? ondansetron ODT (ZOFRAN-ODT) disintegrating tablet 4 mg 4 mg oral Q6H PRN Or ??? ondansetron (ZOFRAN) injection 4 mg 4 mg intravenous Q6H PRN ??? pantoprazole DR (PROTONIX) extended release tablet 40 mg 40 mg oral Daily 40 mg at 05/24/21806 ??? polyethylene glycol (MIRALAX) packet 17 g 17 g oral Daily PRN ??? rOPINIRole (REQUIP) tablet 0.5 mg 0.5 mg oral Nightly 0.5 mg at 05/23/212030 ??? sodium chloride 0.9% flush 0.5-20 mL 0.5-20 mL intra-catheter Q8H AMILCAR 10 mL at 05/23/212031 ??? sodium chloride 0.9% flush 0.5-20 mL 0.5-20 mL intra-catheter PRN ??? traZODone (DESYREL) tablet 25 mg 25 mg oral Nightly PRN 25 mg at 05/22/21310 ??? umeclidinium-vilanteroL (ANORO ELLIPTA) 62.5-25 mcg/actuation inhaler 1 puff 1 puff inhalation Daily 1 puff at 05/24/21808 ??? valproate (DEPAKENE) capsule 500 mg 500 mg oral QID 500 mg at 05/24/21806 OBJECTIVE Vitals: Temp: [36.4 ??C (97.5 ??F)-36.6 ??C (97.9 ??F)] 36.5 ??C (97.7 ??F) Pulse: [67-74] 67 BP: (132-156)/(62-83) 132/67 Resp: [18] 18 SpO2: [92 %-94 %] 94 % Input and Output: Intake/Output Summary (Last 24 hours) at 05/24/2021 0933 Last data filed at 05/24/2021 0730 Gross per 24 hour Intake 240 ml Output 1200 ml Net -960 ml Physical Exam: GENERAL EXAMINATION CONSTITUTIONAL: The patient is well appearing/well nourished, pleasant, comfortable. HEENT & NECK: The head is normocephalic and atraumatic. Conjunctiva are clear without injection; the oropharynx is clear. CARDIOVASCULAR: Extremities are warm and well perfused; there is no peripheral edema. RESPIRATORY: Normal WOB on RA NEUROLOGIC EXAM: Mental Status:The patient is alert and oriented to person, place, time and reason for visit. Attention is intact. Language: The patient has fluent speech and follows commands. Cranial Nerves II-XII: PERRL. Extraocular movements are full and without nystagmus. Face is symmetric, hearing is intact bilaterally and palate is up-going bilaterally. There is no dysarthria. Tongue midline. Motor: Strength is 5/5 throughout. Reflexes: deferred Sensation: Intact to light touch Coordination: deferred Ambulation: deferred Lab/Radiology/Diagnostic Review: I have reviewed the following: Hematology Lab History Some values may be hidden. Unless noted otherwise, only the newest values recorded on each date aredisplayed. Labs - Hematology Latest Ref Range 08/24/20 05/21/21 05/22/21 05/23/21 WBC 3.8 - 9.9 K/cumm 8.8 9.7 6.4 6.6 Total Hb, POC 13.0 - 17.5 g/dL 13.7 16.1 13.5 13.6 Hct 38.9 - 50.3 % 40.4 47.9 38.8 (A) 39.3 Plt 150 - 400 K/cumm 372 245 194 195 Neutrophil abs 1.7 - 6.5 K/cumm 4.3 5.6 3.2 3.3 Lymphocytes, abs 0.8 - 3.3 K/cumm 3.9 (A) 3.2 2.5 2.6 (A) Abnormal value Chem/LFT Lab History Some values may be hidden. Unless noted otherwise, only the newest values recorded on each date aredisplayed. Labs-Chem/LFT Latest Ref Range 08/23/20 05/21/21 05/22/21 05/23/21 Sodium 135 - 145 mmol/L 141 145 144 143 Creatinine 0.80 - 1.30 mg/dL 0.82 0.98 0.84 0.88 Bilirubin, total 0.1 - 1.2 mg/dL <0.2 0.3 AST 10 - 50 Units/L 22 23 ALT 7 - 55 Units/L 35 31 CrCl- Actual Body Weight (Cockcroft-Gault) 113.4 102.7 119.8 114.4 ASSESSMENT AND PLAN Humza Recio is a 71 y.o. male with a PMHx significant for generalized epilepsy, HTN, HLD, CAD, COPD, small-vessel vasculitis (colon, skin), and chronic pain (DJD) who presented on 05/21 with sudden onset dysarthria and word finding difficulty that gradually improved upon arrival to [facility] ED. Last known at baseline just prior to onset of symptoms at 1845 on 05/21. NIHSS 1 (dysarthria) on initial assessment. NO GO for tPA given rapid improvement of symptoms. NO GO for thrombectomy as CTA/CTP not initially pursued given low NIHSS. Impression/etiology: Patient's presentation with transient speech difficulties with mild dizziness is concerning for TIA versus less likely seizure. Per patient and chart review, seizure semiology ischaracterized as GTC and has not occurred in approximately 30 years on the current AED regimen. Given the stability of his seizure history (one identified semiology, no changes for many years), patient and daughter's endorsement of consistent compliance with AEDs, absence of post-ictal period, and patient's history of multiple vascular risk factors, there is higher clinical concern for TIA. Givenan ABCD2 score of 5, he would be considered at moderate risk for subsequent stroke. Will treat as TIA with DAPT. # Suspected TIA Work-up: - ABCD2 score 5 - ECG showed NSR - CTA head and neck W/WO unremarkable - Hemoglobin A1c 5.8, LDL 64 - TTE EF 78%, mild LV hypertrophy, negative bubble study - Loop recorder at discharge - MRI Brain WO, NAIA per prelim Plan: - Aspirin 325 mg daily, clopidogrel 75mg daily for 21 total days (per POINT/CHANCE, end date 06/11) Atorvastatin 80 mg daily - SMART, PT/OT/BORING MILL OPERATOR consults - Telemetry - Gradually re-start home anti-hypertensives # Epilepsy Reportedly seizure-free for past 30 years - Continue home Carbamazepine 600 BID, Valproate 500 QID - Seizure precautions # HTN - Gradually re-start home HCTZ 25 daily, Losartan 50 daily (plan to do this at discharge). # HLD No prior lipid panel on file - Follow up LDL - Continue home Atorvastatin 80 daily # CAD Stress TTE performed in 2018, not available for review. No prior catheterizations on file. - Continue ASA, Atorvastatin # COPD - Tiotropium-olodaterol (Stiolto) at home - Continue formulary alternative Anoro Ellipta while inpatient # Diet: Low fat/low chol # DVT prophylaxis: SQ Lovenox # Lines: PIV # Lora: No # Dispo: Pending work-up Beni Burr MD PGY3 - Neurology Stroke Cosigned by Erna Schilling MD at 05/24/2021 3:17 PM BINDER LAYER ER LAYER ER LAYER Associated attestation - Erna Schilling MD - 05/24/2021 3:17 PM BINDER LAYER I have seen and examined the patient on 05/24/21. I agree with the findings and plan of care as documented in the resident's/fellow's note. MRI brain reviewed with no acute ischemic stroke. * Vanessa Bolden, PT - 05/23/2021 11:49 AM CST Physical Therapy 05/23/21 1149 PT Last Visit Session Type Treatment PT Received On 05/23/21 Safe Environment Arm Band Checked;Call Light within Reach;Notified RN;Patient found in Supine;Overbed Table within Reach;Bed in Lowest Position with Wheels locked;Bed rails up per protocol (left pt sitting at EOB with call light, bed alarm activated with lunch tray, RN- Lisbeth aware) Subjective Agreeable to Therapy Subjective Comment I'm waiting for my MRI Family/Caregiver Present No Precautions Precautions Fall risk;Bed/Chair Alarm;Seizure Precaution Comments PPE donned by PT- mask, gloves. Pt wearing mask for ambulation in hallway Activity Tolerance Activity Tolerance Comments khadijah- light Pain Assessment Pain Assessment No/denies pain Cognition Orientation Oriented X4 (person, place, time, situation) Compliance/Behavior Easy to engage Balance Balance Yes Static Sitting Balance Static Sitting-Balance Support Feet supported Static Sitting-Sitting Surface Bed Static Sitting-Level of Assistance Independent Dynamic Sitting Balance Dynamic Sitting-Balance Support No upper extremity supported Dynamic Sitting-Balance Lateral lean;Forward lean Dynamic Sitting-Sitting Surface Bed Dynamic Sitting-Level of Assistance Distant supervision Dynamic Sitting-Comments safety Static Standing Balance Static Standing-Balance Support Bilateral upper extremity supported (ww) Static Standing-Standing Surface Floor Static Standing-Level of Assistance Contact guard Static Standing-Comment/# of Minutes safety Dynamic Standing Balance Dynamic Standing-Balance Support Bilateral upper extremity supported (ww) Dynamic Standing-Balance (ambulation) Dynamic Standing-Standing Surface Floor Dynamic Standing-Level of Assistance Contact guard Dynamic Standing-Comments CGA for balance and safty Equipment Use Equipment Use Comments gait belt used Bed Mobility Bed Mobility Yes Bed Mobility 1 Bed Mobility From 1 Supine Bed Mobility Type 1 To Bed Mobility to 1 Edge of bed Level of Assistance 1 Modified Independent Bed Mobility Comments 1 HOB elevated Transfers Transfer Yes Transfer 1 Transfer From 1 Bed;Sit Transfer Type 1 To and from Transfer to 1 Stand Technique 1 Sit to stand;Stand to sit Transfer Device 1 No device Transfer Level of Assistance 1 Contact Guard Assist Trials/Comments 1 CGA for balance and safety Transfers 2 Transfer From 2 Bed;Sit Transfer Type 2 To and from Transfer to 2 Stand Technique 2 Sit to stand;Stand to sit Transfer Device 2 Wheeled walker Transfer Level of Assistance 2 Contact Guard Assist;Minimal verbal cues Trials/Comments 2 CGA for safety, min verbal cues for hand placement for use with ww Ambulation Ambulation Yes Ambulation 1 Distance (ft) 1 30 Surface 1 Level tile Device 1 No device Assistance 1 Contact Guard Assist Gait: Requires assist with 1 Maintaining balance Gait: Requires verbal cues to 1 Utilize appropriate gait sequencing;Improve upright posture;Increase step length;Increase base of support;Pace activity Quality of Gait 1 increased lateral sway to L, decreased step length and height R>L Ambulation Comments 1 pt reports feeling unsteady. Ambulation 2 Distance (ft) 2 30 Surface 2 Level tile Device 2 Wheeled walker Assistance 2 Contact Guard Assist Gait: Requires assist with 2 Maintaining balance Gait: Requires verbal cues to 2 Use assistive device safely;Utilize appropriate gait sequencing;Increase step length;Pace activity Quality of Gait 2 decreased step length, decreased betzaida Ambulation Comments 2 no lateral sway noted with use of ww. Pt agreeable to use ww Ambulation 3 Distance (ft) 3 75 Surface 3 Level tile Device 3 Wheeled walker Assistance 3 Contact Guard Assist Gait: Requires assist with 3 Maintaining balance Gait: Requires verbal cues to 3 Use assistive device safely;Utilize appropriate gait sequencing;Improve upright posture;Increase step length;Pace activity Quality of Gait 3 decreased step length, decreased betzaida Stairs Stairs No Basic Mobility - 6 Click How much difficulty does the patient have: Turning over in bed 4 How much difficulty does the patient currently have: Sitting down and standing up from a chair witharms? 4 How much difficulty does the patient have: Moving from lying on back to sitting on the side of the bed? 4 How much difficulty does the patient have: Moving to and from a bed to a chair including wheelchair? 3 How much help does the patient currently need: Walk in hospital room? 3 How much help from another person does the patient currently need: Climbing 3-5 steps with a railing? 3 Total 6 Click Score (range 6-24) 21 Score Interpretation 45.55 Assessment Prognosis Good Problem List Gait deviations;Decreased strength;Decreased endurance;Impaired balance;Decreased mobility Barriers to Discharge Current Mobility Status Plan Plan Continue with current plan;If this is the last note, consider this the discharge summary Recommendation/Plan PT Recommendation/Plan Home with family;Home with 24 hour supervision;Home Health PT PT Frequency 3-5x/wk Treatment/Interventions Balance Training;Gait training;Stair training;Transfer training;Therapeuticexercise;Therapeutic activity;Strengthening PT Equipment Recommended Wheeled walker PT - Next Appointment 05/24/21 PT - OK to Discharge No PT Evaluation Complete Yes Physical Therapy Progress Note NOTE: This is a summary note of the patel components of the treatment session. For full details, review chart for all flowsheets documented on by this physical therapy clinician on this date. Vital signs documented in vital signs flowsheet. Care plan progress documented in Care Plan Activity. For questions, please review the treatment team and contact the PT or [facility] [facility]ARDEN currently assigned to this patient. If a physical therapy clinician is not assigned to this patient, please call [phone]. Multi-Disciplinary Problems (from Physical Therapy) Active Problems Problem: Mobility Start Date: 05/22/21 Goal Start Date Expected End Date End Date LTG - Patient will ambulate community distance with LRD and mod I 05/22/21 07/22/21 -- Goal Start Date Expected End Date End Date STG - Patient will ambulate 250' with AAD, mod I 05/22/21 06/05/21 -- Problem: Transfers Start Date: 05/22/21 Goal Start Date Expected End Date End Date STG - Patient will transfer sit to and from stand with AAD, mod I 05/22/21 06/05/21 -- ER LAYER * Negar Weir MD - 05/23/2021 6:58 AM CST Images from the original note were not included. Neurology Stroke Daily Progress Note SUBJECTIVE Huzma Recio is a 71 y.o. male with a past medical history significant for generalized epilepsy,HTN, HLD, CAD, COPD, small-vessel vasculitis (colon, skin), and chronic pain (DJD) who presented on05/21 with sudden onset dysarthria and word finding difficulty as witnessed by daughter that gradually improved upon arrival to [facility] ED. Last known at baseline on 05/21 just prior to onset of symptoms at 1845. NIHSS 1 (dysarthria) on initial assessment. CT head non-con with no acute abnormalities. NO GO for tPA given rapid improvement of symptoms. NO GO for thrombectomy as CTA/CTP not pursued given low NIHSS. Interval Events: Yesterday patient had episode of unclear etiology. See significant event note. Repeat HCT stable. MRI Brain WO pending. EEG mild gen slow. TTE with EF 78%, mild LV hypertrophy, negative bubble study. Medications Current Facility-Administered Medications Medication Dose Route Frequency Last Rate Last Admin acetaminophen (TYLENOL) tablet 650 mg 650 mg oral Q4H PRN aspirin tablet 325 mg 325 mg oral Daily 325 mg at 05/23/2115 Or aspirin suppository 300 mg 300 mg rectal Daily atorvastatin (LIPITOR) tablet 80 mg 80 mg oral Daily 80 mg at 05/23/21 0815 bisacodyL (DULCOLAX) suppository 10 mg 10 mg rectal Daily PRN bisacodyl EC (DULCOLAX EC) tablet 10 mg 10 mg oral Daily PRN carBAMazepine XR (TEGretol XR) extended release tablet 600 mg 600 mg oral BID 600 mg at 05/23/21813 clopidogreL (PLAVIX) tablet 75 mg 75 mg oral Daily 75 mg at 05/23/21 08 enoxaparin (LOVENOX) syringe 40 mg 40 mg subcutaneous Daily-2100 40 mg at 05/22/212101 fluticasone propionate (FLONASE) 50 mcg/actuation nasal spray 1 spray 1 spray each nostril Daily 1 spray at 05/23/21814 loratadine (CLARITIN) tablet 10 mg 10 mg oral Daily PRN ondansetron ODT (ZOFRAN-ODT) disintegrating tablet 4 mg 4 mg oral Q6H PRN Or ondansetron (ZOFRAN) injection 4 mg 4 mg intravenous Q6H PRN pantoprazole DR (PROTONIX) extended release tablet 40 mg 40 mg oral Daily 40 mg at 05/23/21813 polyethylene glycol (MIRALAX) packet 17 g 17 g oral Daily PRN rOPINIRole (REQUIP) tablet 0.5 mg 0.5 mg oral Nightly 0.5 mg at 05/22/212101 sodium chloride 0.9% flush 0.5-20 mL 0.5-20 mL intra-catheter Q8H AMILCAR 10 mL at 05/22/212101 sodium chloride 0.9% flush 0.5-20 mL 0.5-20 mL intra-catheter PRN traZODone (DESYREL) tablet 25 mg 25 mg oral Nightly PRN 25 mg at 05/22/21 0311 umeclidinium-vilanteroL (ANORO ELLIPTA) 62.5-25 mcg/actuation inhaler 1 puff 1 puff inhalation Daily 1 puff at 05/23/21 1006 valproate (DEPAKENE) capsule 500 mg 500 mg oral QID 500 mg at 05/23/21 1129 OBJECTIVE Vitals: Temp: [36.6 ??C (97.9 ??F)-36.7 ??C (98.1 ??F)] 36.6 ??C (97.9 ??F) Pulse: [69-77] 71 BP: (122-165)/(72-81) 165/81 Resp: [16-18] 18 SpO2: [90 %-95 %] 95 % Input and Output: Intake/Output Summary (Last 24 hours) at 05/23/2021 1234 Last data filed at 05/23/2021 0900 Gross per 24 hour Intake 500 ml Output 300 ml Net 200 ml Physical Exam: GENERAL EXAMINATION CONSTITUTIONAL: The patient is well appearing/well nourished, pleasant, comfortable. HEENT & NECK: The head is normocephalic and atraumatic. Conjunctiva are clear without injection; the oropharynx is clear. CARDIOVASCULAR: Extremities are warm and well perfused; there is no peripheral edema. RESPIRATORY: Normal WOB on RA NEUROLOGIC EXAM: Mental Status:The patient is alert and oriented to person, place, time and reason for visit. Attention is intact. Language: The patient has fluent speech and follows commands. Cranial Nerves II-XII: Visual carvalho are full. PERRL. Extraocular movements are full and without nystagmus. V1-3 is intactto light touch bilaterally. Face is symmetric, hearing is intact bilaterally and palate is up-goingbilaterally. There is no dysarthria. Motor: Strength is 5/5 throughout. Muscle tone and bulk are normal. There is no pronator drift. Finger tapping is normal bilaterally. Reflexes: Reflexes are 2+ at the biceps, brachioradialis and patellae. Absent Lan. Sensation: Light touch is normal in all four extremities. Coordination: Finger to nose is normal bilaterally. Ambulation:Gait is narrow-based with normal arm swing. Lab/Radiology/Diagnostic Review: I have reviewed the following: Hematology Lab History Some values may be hidden. Unless noted otherwise, only the newest values recorded on each date aredisplayed. Labs - Hematology Latest Ref Range 08/23/20 08/24/20 05/21/21 05/22/21 WBC 3.8 - 9.9 K/cumm 9.2 8.8 9.7 6.4 Total Hb, POC 13.0 - 17.5 g/dL 12.7 (A) 13.7 16.1 13.5 Hct 38.9 - 50.3 % 36.8 (A) 40.4 47.9 38.8 (A) Plt 150 - 400 K/cumm 370 372 245 194 Neutrophil abs 1.7 - 6.5 K/cumm 5.7 4.3 5.6 3.2 Lymphocytes, abs 0.8 - 3.3 K/cumm 2.9 3.9 (A) 3.2 2.5 Some values recorded on this date have been omitted. Some abnormal values recorded on this date have been omitted. (A) Abnormal value Chem/LFT Lab History Some values may be hidden. Unless noted otherwise, only the newest values recorded on each date aredisplayed. Labs-Chem/LFT Latest Ref Range 08/22/20 08/23/20 05/21/21 05/22/21 Sodium 135 - 145 mmol/L 141 141 145 144 Creatinine 0.80 - 1.30 mg/dL 0.80 0.82 0.98 0.84 Bilirubin, total 0.1 - 1.2 mg/dL <0.2 <0.2 0.3 AST 10 - 50 Units/L 22 22 23 ALT 7 - 55 Units/L 33 35 31 CrCl- Actual Body Weight (Cockcroft-Gault) 116.2 113.4 102.7 119.8 Some values recorded on this date have been omitted. ASSESSMENT AND PLAN Humza Recio is a 71 y.o. male with a PMHx significant for generalized epilepsy, HTN, HLD, CAD, COPD, small-vessel vasculitis (colon, skin), and chronic pain (DJD) who presented on 05/21 with sudden onset dysarthria and word finding difficulty that gradually improved upon arrival to [facility] ED. Last known at baseline just prior to onset of symptoms at 1845 on 05/21. NIHSS 1 (dysarthria) on initial assessment. NO GO for tPA given rapid improvement of symptoms. NO GO for thrombectomy as CTA/CTP not initially pursued given low NIHSS. Impression/etiology: Patient's presentation with transient speech difficulties with mild dizziness is concerning for TIA versus less likely seizure. Per patient and chart review, seizure semiology ischaracterized as GTC and has not occurred in approximately 30 years on the current AED regimen. Given the stability of his seizure history (one identified semiology, no changes for many years), patient and daughter's endorsement of consistent compliance with AEDs, absence of post-ictal period, and patient's history of multiple vascular risk factors, there is higher clinical concern for TIA. Givenan ABCD2 score of 5, he would be considered at moderate risk for subsequent stroke. # Suspected TIA Work-up: - ABCD2 score 5 - ECG showed NSR - CTA head and neck W/WO unremarkable - Hemoglobin A1c 5.8, LDL 64 - TTE EF 78%, mild LV hypertrophy, negative bubble study - Loop recorder at discharge - MRI Brain WO pending Plan: - Aspirin 325 mg daily, Atorvastatin 80 mg daily - SMART, PT/OT/BORING MILL OPERATOR consults - Telemetry - S/P permissive HTN for first 24 hrs - Gradually re-start home anti-hypertensives # Epilepsy Reportedly seizure-free for past 30 years - Continue home Carbamazepine 600 BID, Valproate 500 QID - Seizure precautions # HTN - Gradually re-start home HCTZ 25 daily, Losartan 50 daily (plan to do this at discharge). # HLD No prior lipid panel on file - Follow up LDL - Continue home Atorvastatin 80 daily # CAD Stress TTE performed in 2018, not available for review. No prior catheterizations on file. - Continue ASA, Atorvastatin # COPD - Tiotropium-olodaterol (Stiolto) at home - Continue formulary alternative Anoro Ellipta while inpatient # Diet: Low fat/low chol # DVT prophylaxis: SQ Lovenox # Lines: PIV # Lora: No # Dispo: Pending work-up Negar Weir MD PGY3 - Neurology Stroke Cosigned by Erna Schilling MD at 05/23/2021 2:04 PM BINDER LAYER ER LAYER ER LAYER Associated attestation - Erna Schilling MD - 05/23/2021 2:04 PM BINDER LAYER I have seen and examined the patient on 05/23/21. I agree with the findings and plan of care as documented in the resident's/fellow's note.. * Vel Hameed - 05/22/2021 11:22 AM CST [facility] 05.22.21 10405/22/21 1000 Time Spent Start Time 1035 Stop Time 1040 Time Calculation (min) 5 min Patient Spiritual Assessment Spirituality Assessed Focus of Care Clinical Encounter Type Visited With Patient Response Type Routine visit Routine Visit Introduction Reason for visit SMART (stroke team);Support Outcomes and Progress Demonstrating care and respect Achieved Interventions Interventions Offer emotional support;Offer spiritual/rastafarian support ER LAYER * Jennifer Rehman, LOCO - 05/22/2021 10:34 AM CST CM Initial Assessment Interview Note Information Obtained From: Patient (05/22/211033) In Room Admission Source: Non Health Care Facility Point of Origin Impression: 71 year old male who presented with sudden onset dysarthria and word finding difficulty Plan Includes: CM to follow for further discharge planning. Will submit referrals as needed in accordance with PT/OT recommendations. Primary Source of Transportation: Does the patient need discharge transport arranged?: No (Daughter or friend will provide discharge transportation) (05/22/211033) Health Insurance Coverage: Medicare & [place] Prescription Coverage: Yes Pharmacy: [facility] Primary Care Provider: Annabelle Martins MD Prior to Admission: Primary Caregiver: Self Support System: Children Support system contact info (name, phone, availablity): Marci Cruz (Daughter) [phone] Home Care Services: No Durable Medical Equipment: None Living Arrangements: Alone Type of Residence: Private residence Steps in home? : No steps inside or outside Medication management: (Patient self manages medications) (05/22/211033) Potential discharge needs include: Home Health: (TBD) (05/22/211033) Dialysis: N/A Behavioral Health Services: Behavioral Health Services: No (05/22/211033) Patient expects to be Discharged to: Private residence, (05/22/211033) Additional Information: Address and phone number verified with face sheet. Patient lives in a housealone. Patient was independent of ADL's prior to admission. Patient is retired. Patient receives support at home from his daughter. Patient denies DME and home health care prior to this admission. Role of CM explained. Patient's Identified Problem/Goal Problem: Ensure acute medical needs are met and that patient has a safe discharge plan. Goal: Secure a discharge plan that patient/family are agreeable with and ensure patient has continuum of care. Case management will follow for discharge planning and send referrals as needed. Goals include: To assure continuity of care, To maximize coping skills, To assure patient is in a safe environment and To assure access to community resources. Plan includes: 1. Collaboration with patient, MD, direct care nurse, Group Tester, Nurse Coordinator and other members of the health care team to assure needed interventions completed. 2. Return patient to optimal level of self-care post discharge. 3. Coating And Baking Operator will follow for Discharge Planning - interventions as needed 4. Anticipated level of care at discharge 5. Planned Discharge Disposition Based on a comprehensive family assessment, assistance with instrumental activities of daily livingafter discharge will be provided by the daughter (Marci) Through the course of our work I determined that the daughter (Marci) possesses the skill and ability to provide and monitor the care of the patient when he or she returns home. The daughter (Marci) has the capacity to provide/monitor/arrange for the care of the patient. Finally, we determined that the daughter (Marci) has the knowledge of available resources and that combining them with their existing resources will suffice to sustain and care for the patient when he or she returns home. The treatment team is aware of this information. All are in agreement with the aftercare plan. Jennifer Rehman RN ER LAYER * Ashlee Esteban, OT - 05/22/2021 9:15 AM CST Occupational Therapy Occupational Therapy Initial Assessment NOTE:This is a summary note for the patel assessments completed during the evaluation session. For full details, review chart review for all flowsheets documented on by this Occupational Therapist on this date. Vital signs documented in vital signs flowsheet. Assessment Plan Plan Plan: If this is the last note, consider this the discharge summary OT Recommendation and Plan Recommendation/Plan OT Recommendation: Home with family, Home Health OT (recommend no driving currently, due to pt. report of symptoms. Recommend someone stay with pt. at least initially when discharged.) OT Frequency: One-time visit (Discharge from this service) (0) OT - OK to Discharge: Yes OT Evaluation Complete: Yes General Information General Chart Reviewed: Yes Session Type: Evaluation (initial discharge) OT Received On: 05/22/21 Safe Environment: Arm Band Checked, Call Light within Reach, Patient found in Supine, Overbed Tablewithin Reach (pt in supine at end of session) Subjective: Agreeable to Therapy Subjective Comment: Pt. stated that when he changes position his head feels somewhat dizzy Family/Caregiver Present: No Occupational Therapy-Patient Goal: pt did not state any OT goal Precautions Precautions Precautions: Fall risk, Seizure Home Living Home Living Type of Home: House Home Layout: One level Home Mobility Equipment: None Prior Function Prior Function Level of [place]: Independent with ADLs, Independent with ambulation, Needs assistance with homemaking Lives With: Alone Receives Help From: Family (pt reports his daughter checks on him and sometimes brings him food or takes him places) Driving: Yes Vocational/Occupation: Retired Activities of Daily Living Grooming Grooming: Where assessed: Standing at sink Grooming: Level of assistance: Standby Assist Toileting Toileting: Where assessed: (chair, simulated) Toileting: Level of assistance: Standby Assist Toilet Transfers Toilet Transfers: Supervision (simulated with chair) Pain Pain Assessment Pain Assessment: No/denies pain Cognition Cognition Arousal/Alertness: Alert, Appropriate responses to stimuli Attention Span: Appears intact Memory: Appears intact Orientation : Oriented X4 (person, place, time, situation) Following Commands: Follows all commands and directions without difficulty Compliance/Behavior: Easy to engage Short Blessed Test What year is it now?: Correct What month is it now?: Correct Repeat this name and address after me: Regulo Meyers [address] [place] [address] Without looking at the clock, tell me what time it is: Correct-within one hour Count aloud backwards from 20-1: 0 Errors Say the months of the year backwards in reverse order: 0 Errors Repeat the name and address I asked you to remember: 0 Errors Short Blessed Total Score: 0 6 Clicks Daily Activity - 6 Clicks Putting on and taking off regular lower body clothing: A Little Bathing: A little Toileting: A little Putting on and taking off upper body clothing: None Personal Grooming: A little Eating Meals: None Total Score (range 6-24): 20 Score Interpretation: 20 Balance Static Sitting Balance Static Sitting-Balance Support: No upper extremity supported, Feet supported Static Sitting-Sitting Surface: Bed Static Sitting-Level of Assistance: Independent Static Standing Balance Static Standing-Balance Support: No upper extremity supported Static Standing-Standing Surface: Floor Static Standing-Level of Assistance: Close supervision Transfers Transfer 1 Transfer From 1: Sit Transfer Type 1: To and from Transfer to 1: Stand Transfer Level of Assistance 1: Standby Assist Trials/Comments 1: Functional room mobility to bathroom sink with supervision; however, pt. did report he felt woozy with position changes. Bed Mobility Bed Mobility 1 Bed Mobility From 1: Supine Bed Mobility Type 1: To and from Bed Mobility to 1: Edge of bed Level of Assistance 1: Independent RUE Assessment RUE Assessment RUE Assessment: (AROM WFL) LUE Assessment LUE Assessment LUE Assessment: (AROM WFL) Other Comments OT Goals Multi-Disciplinary Problems (from Occupational Therapy) Active Problems Not on file ER LAYER * Gypsy Perez, PT - 05/22/2021 8:03 AM CST Physical Therapy Physical Therapy Initial Assessment NOTE: This is a summary note for the patel assessments completed during the evaluation session. For full details, review chart review for all flowsheets documented on by this physical therapist on thisdate. Vital signs documented in vital signs flowsheet. Assessment Assessment Prognosis: Good Problem List: Gait deviations, Decreased endurance, Impaired balance, Decreased mobility Problem List Comments: PT Diagnosis: sudden onset dysarthria and word finding difficulty, with gradual improvement, suspected TIA results in above listed activity deficits and impairments which prevent full participation in home and community mobility Barriers to Discharge: Current Mobility Status Plan Plan Plan : Plan of care initiated, If this is the last note, consider this the discharge summary PT Recommendation and Plan Recommendation/Plan PT Recommendation/Plan: Home with family, Home with 24 hour supervision, Home Health PT PT Recommendation/Plan Comments: Pt agreeable with PT POC. If pt unable to have 24H supervision, recommend SNF. PT Frequency: 3-5x/wk Treatment/Interventions: Balance Training, Bed mobility, Endurance training, Gait training, Strengthening, Therapeutic activity, Therapeutic exercise, Transfer training PT Equipment Recommended: Wheeled walker (pending progress) PT - Next Appointment: 05/23/21 PT - OK to Discharge: No PT Evaluation Complete: Yes General Information General Chart Reviewed: Yes Session Type: Evaluation PT Received On: 05/22/21 Safe Environment: Arm Band Checked, Call Light within Reach, Notified RN, Patient found in Supine (end of session, pt seated at EOB with all needs met) Subjective: Agreeable to Therapy Family/Caregiver Present: No Physical Therapy-Patient Goal: Improve balance/steadiness with walking Prior Function Prior Function Level of [place]: Independent with ADLs, Independent functional transfers, Independent with ambulation, Independent with homemaking with ambulation Lives With: Alone Receives Help From: Family (Pt reports his daughter could stay with him for FTA as needed) Fall within the last 6 months: No Prior Function Comments: Pt reports he is normally very independent and active at baseline. Home Living Home Living Type of Home: House Home Layout: One level Home Access: Level entry Home Mobility Equipment: None Additional Comments: Pt reports no use of AD at baseline Precautions Precautions Precautions: Fall risk, Seizure Pain Pain Assessment Pain Assessment: No/denies pain Cognition Cognition Arousal/Alertness: Alert, Appropriate responses to stimuli Orientation : Oriented X4 (person, place, time, situation) Following Commands: Follows all commands and directions without difficulty Safety Judgment: Good awareness of safety precautions 6 Clicks Basic Mobility - 6 Click How much difficulty does the patient have: Turning over in bed: None How much difficulty does the patient currently have: Sitting down and standing up from a chair witharms?: A little How much difficulty does the patient have: Moving from lying on back to sitting on the side of the bed?: None How much difficulty does the patient have: Moving to and from a bed to a chair including wheelchair?: A little How much help does the patient currently need: Walk in hospital room?: A little How much help from another person does the patient currently need: Climbing 3-5 steps with a railing?: A little Total 6 Click Score (range 6-24): 20 Score Interpretation: 20 Bed Mobility Bed Mobility Bed Mobility: Yes Bed Mobility 1 Bed Mobility From 1: Supine Bed Mobility Type 1: To Bed Mobility to 1: Edge of bed Level of Assistance 1: Modified Independent Bed Mobility Comments 1: use of bedrails, HOB elevated Transfers Transfers Transfer: Yes Transfer 1 Transfer From 1: Sit Transfer Type 1: To and from Transfer to 1: Stand Technique 1: Sit to stand, Stand to sit Transfer Device 1: No device Transfer Level of Assistance 1: Standby Assist Trials/Comments 1: SBA for safety Balance Static Sitting Balance Static Sitting-Balance Support: No upper extremity supported, Feet supported Static Sitting-Sitting Surface: Bed Static Sitting-Level of Assistance: Independent Static Standing Balance Static Standing-Balance Support: No upper extremity supported Static Standing-Standing Surface: Floor Static Standing-Level of Assistance: Close supervision Static Standing-Comment/# of Minutes: SPV for safety Ambulation Ambulation Ambulation: Yes Ambulation 1 Distance (ft) 1: 200 Surface 1: Level tile Device 1: No device Assistance 1: Contact Guard Assist Gait: Requires assist with 1: Maintaining balance Gait: Requires verbal cues to 1: Improve upright posture, Increase step length, Pace activity Quality of Gait 1: increased lateral trunk sway, decreased [place], decreased step height/length Ambulation Comments 1: Pt reports feeling more unsteady/off balance than his typical walking Stairs Stairs Stairs: No Stair Comments: deferred d/t pt reports no stairs in home environment RLE Assessment RLE Assessment RLE Assessment: Within Functional Limits Strength RLE R Hip Flexion: 5/5 R Knee Extension: 5/5 R Ankle Dorsiflexion: 5/5 LLE Assessment LLE Assessment LLE Assessment: Within Functional Limits Strength LLE L Hip Flexion: 5/5 L Knee Extension: 5/5 L Ankle Dorsiflexion: 5/5 Equipment Used Equipment Use Equipment Use Comments: gait belt donned for all OOB mobility Other Comments Other Comments Other PT Comments: Pt participated well in therapy, was limited by decreased activity tolerance andunsteadiness with gait. Pt states that his daughter would be able to stay with him after discharge from the hospital as needed, and states he is agreeable to using an assistive device initially upon discharge. PT provided education regarding PT POC and activity recommendations while hospitalized, pt verbalizes understanding of all education. PT Goals Multi-Disciplinary Problems (from Physical Therapy) Active Problems Problem: Mobility Start Date: 05/22/21 Goal Start Date Expected End Date End Date LTG - Patient will ambulate community distance with LRD and mod I 05/22/21 07/22/21 -- Goal Start Date Expected End Date End Date STG - Patient will ambulate 250' with AAD, mod I 05/22/21 06/05/21 -- Problem: Transfers Start Date: 05/22/21 Goal Start Date Expected End Date End Date STG - Patient will transfer sit to and from stand with AAD, mod I 05/22/21 06/05/21 -- For questions, please review the treatment team and contact the PT or FOREST FIRE WARDEN currently assigned to this patient. If a physical therapy clinician is not assigned to this patient, please call [phone]. ER LAYER * Elida Guerrero RN - 05/22/2021 2:32 AM CST Patient admitted [place] [id number] from ED via wheelchair. Covering service notified. Patient presents with TIA. Orders reviewed & will continue to monitor. Patient and/or security systems sales representative oriented to environment, equipment, and informed of the following as found in admission booklet: patient rights & responsibilities, visitor policy, hand and respiratory hygiene practice. Other education includes: Fall Prevention and Skin Breakdown Prevention/Treatment. Patient and/or security systems sales representative Verbalizes understanding. ER LAYER documented in this encounter H&P Notes * Edith Ashley MD - 05/22/2021 2:45 AM CST Images from the original note were not included. STROKE ADMISSION HISTORY AND PHYSICAL Date: 05/22/21 CARE TEAM Patient: Humza Recio Primary Care Physician: Annabelle Donald MD Room: [place] [id number] Attending Physician: Erna Schilling MD Subjective SUBJECTIVE Humza Recio is a 71 y.o. male with a past medical history significant for generalized epilepsy,HTN, HLD, CAD, COPD, small-vessel vasculitis (colon, skin), and chronic pain (DJD) who presented on05/21 with sudden onset dysarthria and word finding difficulty as witnessed by daughter that gradually improved upon arrival to [facility] ED. Last known at baseline on 05/21 just prior to onset of symptoms at 1845. NIHSS 1 (dysarthria) on initial assessment. CT head non-con with no acute abnormalities. NO GO for tPA given rapid improvement of symptoms. NO GO for thrombectomy as CTA/CTP not pursued given low NIHSS. HISTORY OF PRESENT ILLNESS: History obtained via patient (reliable) and chart review. At his baseline, Mr. Recio is independent in ADLs/IADLs, ambulates without assistance, and has no baseline neurologic deficits. Upon arrival to the [facility] ED, blood pressure 176/101, blood glucose 118. NIHSS [address] head without contrast showing NAIA. CTA head and neck W/WO (not obtained during acute stroke protocol) without occlusion or significant stenosis. NO GO for tPA given rapidly improving symptoms. NO GO for thrombectomy given no LVO. Initial labs notable for normal CBC, CMP, electrolytes, TSH, troponins. AED levels with Valproate 29 (previously 45 in 08/2020), Carbamazepine 8.1. ECG showing NSR. Patient was in his usual state of health when at 18:45 he experienced sudden onset slurred speech and word finding difficulty. He described this as being able to think of the words he wanted to say but having trouble mechanically getting them out. This was witnessed by both daughter and EMS. Per EMS report to Neurology consult resident during code stroke evaluation, they felt this speech difficulty was somewhat intermittent, but had greatly improved by the time they arrived to the hospital.??The ED attending also reportedly witnessed both the patient's dysarthria and word production difficulty and felt that it had significant improved shortly upon arrival to the ED. At the time of code stroke evaluation, the patient stated he felt close to his baseline.??He endorsed mild dizziness with this episode, but specifically denied vertiginous symptoms, nausea. ?? Both the patient and his daughter report no similar episode in the past. Sometimes he may become mildly dysarthric immediately before or after a seizure, but his only known seizure semiology is GTC. Patient reports no seizures for the past 30 years. He has never been witnessed to have staring spells, focal motor seizures, or automatisms. He denied using any substances including alcohol, tobacco, illicits, marijuana, CBD. Patient and daughter endorse compliance with AEDs. His AED regimen is Carbamazepine ER 600 BID and Valproate 500 QID. ?? Regarding his diagnosis of vasculitis, the patient presented in mid-2020 with bloody diarrhea, abdominal pain, microscopic hematuria, and rash. Skin biopsy demonstrated superficial and mid-dermal perivascular interstitial mixed inflammatory cell infiltrate. There was no significant immunofluorescence staining. CTA head and neck at that time showed no evidence of intracranial involvement. It was suspected that this represented small vessel vasculitis and the patient was treated successfully withPO prednisone taper. It was considered somewhat atypical that there was no IgA immunofluorescence on skin biopsy. Past Medical/Surgical History Past Medical History: Diagnosis Date ??? COPD (chronic obstructive pulmonary disease) (CMS/HCC) (HCC) ??? Headache ??? Seizures (CMS/HCC) (HCC) Past Surgical History: Procedure Laterality Date ??? HERNIA REPAIR Home Medications HOME MEDICATIONS : aspirin (Adult Low Dose Aspirin) 81 mg enteric coated tablet atorvastatin (LIPITOR) 40 mg tablet carBAMazepine ER (CARBATROL) 300 mg 12 hr capsule fluticasone propionate (FLONASE) 50 mcg/actuation nasal spray hydroCHLOROthiazide (HYDRODIURIL) 25 mg tablet loratadine (CLARITIN) 10 mg tablet losartan (COZAAR) 50 mg tablet multivit with minerals/lutein (MULTIVITAMIN 50 PLUS ORAL) pantoprazole DR (PROTONIX) 40 mg EC tablet rOPINIRole (REQUIP) 0.5 mg tablet tiotropium bromide (SPIRIVA RESPIMAT) 2.5 mcg/actuation inhaler tiotropium-olodateroL (STIOLTO) 2.5-2.5 mcg/actuation inhaler valproate (DEPAKENE) 250 mg capsule Current Facility-Administered Medications Medication Dose Route Frequency Provider Last Rate Last Admin ??? acetaminophen (TYLENOL) tablet 650 mg 650 mg oral Q4H PRN Edith Ashley MD ??? aspirin tablet 325 mg 325 mg oral Daily Edith Ashley MD Or ??? aspirin suppository 300 mg 300 mg rectal Daily Edith Ashley MD ??? atorvastatin (LIPITOR) tablet 80 mg 80 mg oral Daily Edith Ashley MD ??? bisacodyL (DULCOLAX) suppository 10 mg 10 mg rectal Daily PRN Edith Ashley MD ??? bisacodyl EC (DULCOLAX EC) tablet 10 mg 10 mg oral Daily PRN Edith Ashley MD ??? carBAMazepine XR (TEGretol XR) extended release tablet 600 mg 600 mg oral BID Edith Ashley MD ??? enoxaparin (LOVENOX) syringe 40 mg 40 mg subcutaneous Daily-2100 Edith Ashley MD ??? fluticasone propionate (FLONASE) 50 mcg/actuation nasal spray 1 spray 1 spray each nostril Daily Edith Ashley MD ??? loratadine (CLARITIN) tablet 10 mg 10 mg oral Daily PRN Edith Ashley MD ??? ondansetron ODT (ZOFRAN-ODT) disintegrating tablet 4 mg 4 mg oral Q6H PRN Edith Ashley MD Or ??? ondansetron (ZOFRAN) injection 4 mg 4 mg intravenous Q6H PRN Edith Ashley MD ??? pantoprazole DR (PROTONIX) extended release tablet 40 mg 40 mg oral Daily Edith Ashley MD ??? polyethylene glycol (MIRALAX) packet 17 g 17 g oral Daily PRN Edith Ashley MD ??? ramelteon (ROZEREM) tablet 8 mg 8 mg oral Nightly PRN Edith Ashley MD ??? rOPINIRole (REQUIP) tablet 0.5 mg 0.5 mg oral Nightly Edith Ashley MD ??? sodium chloride 0.9% flush 0.5-20 mL 0.5-20 mL intra-catheter Q8H AMILCAR Edith Ashley MD ??? sodium chloride 0.9% flush 0.5-20 mL 0.5-20 mL intra-catheter PRN Edith Ashley MD ??? sodium chloride 0.9% infusion 125 mL/hr intravenous Continuous Edith Ashley MD ??? umeclidinium-vilanteroL (ANORO ELLIPTA) 62.5-25 mcg/actuation inhaler 1 puff 1 puff inhalation Daily (RT) Edith Ashley MD ??? valproate (DEPAKENE) capsule 500 mg 500 mg oral QID Edith Ashley MD Allergies: No Known Allergies Social History Reports that he quit smoking about 4 years ago. His smoking use included vaping and cigarettes. He has quit using smokeless tobacco. He denies current alcohol or drug use. 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 ?? Social History Socioeconomic History ??? Marital status: Tobacco Use ??? Smoking status: Former Smoker Types: Vaping, Cigarettes Quit date: 09/17/2016 Years since quittin.6 ??? Smokeless tobacco: Former User Vaping Use ??? Vaping Use: Former Substance and Sexual Activity ??? Alcohol use: Defer Family History Family History Problem Relation Age of Onset ??? No Known Problems Mother ??? No Known Problems Father Review of Systems All symptoms negative except as per HPI. Objective OBJECTIVE Vitals: Arrival Vitals Temp 05/21/211944 36.5 ??C (97.7 ??F) Pulse 05/21/211943 106 Resp 05/21/211943 18 BP 05/21/211944 (!) 176/101 SpO2 05/21/211943 94 % Temp src 05/21/211944 Oral Heart Rate Source 05/22/21214 Pulse Oximetry Patient Position 05/22/21214 Sitting BP Location 05/22/21214 Left arm FiO2 (%) -- 24hr Min/Max: Temp Min: 36.5 ??C (97.7 ??F) Max: 36.7 ??C (98.1 ??F) Pulse Min: 83 Max: 106 BP Min: 140/78 Max: 176/101 Resp Min: 13 Max: 20 SpO2 Min: 92 % Max: 94 % Most Recent : Vitals: 05/22/21214 BP: 161/85 Pulse: 93 Resp: 20 Temp: 36.7 ??C (98.1 ??F) SpO2: 93% Intake/Output Summary (Last 24 hours) at 05/22/2021 0245 Last data filed at 05/22/2021 0230 Gross per 24 hour Intake -- Output 250 ml Net -250 ml Physical Exam GENERAL EXAMINATION CONSTITUTIONAL: The patient is well appearing/well nourished, appears mildly anxious, NAD. HEENT & NECK: The head is normocephalic and atraumatic.Conjunctiva are clear without injection;the oropharynx is clear. CARDIOVASCULAR: Extremities are warm and well perfused; there is no peripheral edema. RESPIRATORY: Normal WOB on RA. NEUROLOGIC EXAM: Mental Status:The patient is alert and oriented to person, place, time and reason for visit. Attention is intact. Language: Mildly increased speech latency. Follows complex commands. Naming, repetition intact. Cranial Nerves II-XII: Visual carvalho are full. PERRL. Extraocular movements are full and without nystagmus. V1-3 is intactto light touch bilaterally. Face is symmetric, hearing is intact to finger rub bilaterally and palate is up-going bilaterally. There is no dysarthria. Motor: Strength is 5/5 throughout. Muscle tone and bulk are normal. There is no pronator drift. Finger tapping is normal bilaterally. Reflexes: Reflexes are 2+ at the biceps, brachioradialis and patellae, though brisker on the L. Sensation: Light touch is normal in all four extremities. Coordination: Finger to nose is normal bilaterally. Ambulation: Gait deferred. Lab/Radiology/Diagnostic Review: Hematology Lab History Some values may be hidden. Unless noted otherwise, only the newest values recorded on each date aredisplayed. Labs - Hematology Latest Ref Range 08/22/20 08/23/20 08/24/20 05/21/21 WBC 3.8 - 9.9 K/cumm 8.5 9.2 8.8 9.7 Total Hb, POC 13.0 - 17.5 g/dL 12.2 (A) 12.7 (A) 13.7 16.1 Hct 38.9 - 50.3 % 34.9 (A) 36.8 (A) 40.4 47.9 Plt 150 - 400 K/cumm 362 370 372 245 Neutrophil abs 1.7 - 6.5 K/cumm 5.2 5.7 4.3 5.6 Lymphocytes, abs 0.8 - 3.3 K/cumm 2.6 2.9 3.9 (A) 3.2 Some values recorded on this date have been omitted. Some abnormal values recorded on this date have been omitted. (A) Abnormal value Chem/LFT Lab History Some values may be hidden. Unless noted otherwise, only the newest values recorded on each date aredisplayed. Labs-Chem/LFT Latest Ref Range 08/21/20 08/22/20 08/23/20 05/21/21 Sodium 135 - 145 mmol/L 142 141 141 145 Creatinine 0.80 - 1.30 mg/dL 0.84 0.80 0.82 0.98 Bilirubin, total 0.1 - 1.2 mg/dL <0.2 <0.2 0.3 AST 10 - 50 Units/L 22 22 23 ALT 7 - 55 Units/L 33 35 31 CrCl- Actual Body Weight (Cockcroft-Gault) 110.7 116.2 113.4 102.7 Some values recorded on this date have been omitted. Results for orders placed or performed during the hospital encounter of 05/21/21 CT Head WO Contrast Narrative EXAMINATION: CT head without contrast HISTORY: Dysarthria. TECHNIQUE: Noncontrast CT of the brain was performed with images acquired from skull base to vertex. COMPARISON: CT dated 08/23/2020. FINDINGS: Topogram demonstrates no lytic lesions or fractures. There is no acute intracranial hemorrhage. Ventricles are of normal size and morphology. No mass effect or midline shift is present. The vazquez-white matter differentiation is normal. The visualized portions of the orbits are normal. The visualized portions of the mastoids are normal. Bilateral mucous retention cyst noted in the maxillary sinuses. Vascular calcification of the intracranial vessels. No fractures are identified. Impression No acute intracranial abnormality. The time sensitive The time sensitive CT HEAD W/O was communicated by Dr. Nichols to stroke team at 05/21/2021 at 940 PM Dictated by: Viktoria Morel M.D. Results for orders placed or performed during the hospital encounter of 08/18/20 CTA Head W WO Contrast Narrative EXAMINATION: Computed tomography angiography (CTA) of the head without and with contrast HISTORY: Worsening lower extremities back, concern for vasculitis, history of seizures. TECHNIQUE: Computed tomography of the head was performed without contrast according to standard protocol. Computed tomographic angiography was then obtained from the skull base to the vertex following the uneventful administration of intravenous contrast. 3D images were generated on a dedicated workstation. Contrast information: 100 mL Optiray-350 COMPARISON: No direct relevant comparison, PET/CT dated 12/17/2017. FINDINGS: Topogram demonstrates no lytic lesions or fractures. There is no acute intracranial hemorrhage. There is mild diffuse cerebral atrophy, with ex vacuo dilatation of the ventricles. No mass effect or midline shift is present. The vazquez-white matter differentiation is normal. The visualized portions of the orbits are normal. The visualized portions of the mastoids are normal. Partially visualized bilateral maxillary sinus mucous retention cysts. No fractures are identified. Atherosclerotic calcification of the vertebral arteries and carotid siphons Angiographic findings: The visualized course and caliber of the internal carotid arteries are normal. No areas of filling defects are identified. There is mild focal narrowing of the left A2 segment anterior cerebral artery. The middle cerebral arteries and right anterior cerebral artery are normal. Dominant right vertebral artery. The basilar artery is normal. The posterior cerebral arteries are normal. There is no aneurysm or vascular malformation identified. Impression 1. No acute intracranial abnormality. 2. Mild atherosclerotic disease of intracranial vessels, with mild focal narrowing of the left A2 segment anterior cerebral artery. No CT angiogram evidence of vasculitic process at this time. Dictated by: Petra Little M.D. The radiology attending physician has personally reviewed this study, and had reviewed and/or edited this written report and agrees with it. Electronically signed by: Joselin Seo M.D. Assessment/Plan ASSESSMENT AND PLAN Humza Recio is a 71 y.o. male with a PMHx significant for generalized epilepsy, HTN, HLD, CAD, COPD, small-vessel vasculitis (colon, skin), and chronic pain (DJD) who presented on 05/21 with sudden onset dysarthria and word finding difficulty that gradually improved upon arrival to [facility] ED. Last known at baseline just prior to onset of symptoms at 1845 on 05/21. NIHSS 1 (dysarthria) on initial assessment. NO GO for tPA given rapid improvement of symptoms. NO GO for thrombectomy as CTA/CTP not initially pursued given low NIHSS. Impression/etiology: Patient's presentation with transient speech difficulties with mild dizziness is concerning for TIA versus less likely seizure. Per patient and chart review, seizure semiology ischaracterized as GTC and has not occurred in approximately 30 years on the current AED regimen. Given the stability of his seizure history (one identified semiology, no changes for many years), patient and daughter's endorsement of consistent compliance with AEDs, absence of post-ictal period, and patient's history of multiple vascular risk factors, there is higher clinical concern for TIA. Givenan ABCD2 score of 5, he would be considered at moderate risk for subsequent stroke. # Suspected TIA Work-up: - ABCD2 score 5 - ECG showed NSR - CTA head and neck W/WO unremarkable - Hemoglobin A1c, LDL pending - TTE pending - Loop recorder at discharge Plan: - Aspirin 325 mg daily, Atorvastatin 80 mg daily - SMART, PT/OT/BORING MILL OPERATOR consults - Telemetry - Allow permissive HTN for first 24 hrs -- Gradually re-start home anti-hypertensives - Will consider dual antiplatelet per CHANCE/POINT (check for AED interactions) # Epilepsy Reportedly seizure-free for past 30 years - Continue home Carbamazepine 600 BID, Valproate 500 QID - Seizure precautions # HTN - Gradually re-start home HCTZ 25 daily, Losartan 50 daily # HLD No prior lipid panel on file - Follow up LDL - Continue home Atorvastatin 80 daily # CAD Stress TTE performed in 2018, not available for review. No prior catheterizations on file. - Continue ASA, Atorvastatin # COPD - Tiotropium-olodaterol (Stiolto) at home - Continue formulary alternative Anoro Ellipta while inpatient # Diet: Low fat/low chol # DVT prophylaxis: SQ Lovenox # Lines: PIV # Lora: No # Dispo: Pending work-up Edith Ashley MD Stroke phone on-call: [phone] Cosigned by Erna Schilling MD at 05/22/2021 1:56 PM BINDER LAYER ER LAYER ER LAYER ER LAYER Associated attestation - Erna Schilling MD - 05/22/2021 1:56 PM BINDER LAYER I have seen and examined the patient on 05/22/21. I agree with the findings and plan of care as documented in the resident's/fellow's note. CT head and CTA head/neck reviewed with no acute hemorrhage, no large territorial stroke, no evidence of significant vascular stenosis or occlusion. Patient with resolution of symptoms. Today he just complains of poor sleep and orthostatic dizziness on sitting up quickly. He has evidence of dehydration clinically. Will give fluids. Will continue antiplatelet, statin, and antiepileptics. Will recommend follow up with local neurologist and likely discharge.Ddx is possible TIA vs. Seizure, treating for both scenarios. documented in this encounter Consult Notes * Adri Nugent RD - 05/23/2021 2:04 PM CSTAssociated Order(s): IP CONSULT TO NUTRITION SERVICES Nutrition Assessment Reason for Assessment: Initial Nutrition Assessment and Consult/Referral Encounter Date: 05/23/21 2:04 PM Patient is a 71 y.o. male. LOS is 1 days. HPI: Humza Recio??is a 71 y.o.??male??with a past medical history significant for generalized epilepsy,??HTN,??HLD, CAD, COPD,??small-vessel vasculitis??(colon, skin), and chronic pain (DJD)??who presented on 05/21 with??sudden onset dysarthria and word finding difficulty as??witnessed by daughter??that gradually improved upon arrival to [facility] ED.?? SMART a1c 5.8 LDL 67 Objective Past Medical History: Diagnosis Date ??? COPD (chronic obstructive pulmonary disease) (CMS/HCC) (HCC) ??? Headache ??? Seizures (CMS/HCC) (HCC) Past Surgical History: Procedure Laterality Date ??? HERNIA REPAIR Social History Tobacco Use ??? Smoking status: Former Smoker Types: Vaping, Cigarettes Quit date: 09/17/2016 Years since quittin.6 ??? Smokeless tobacco: Former User Substance Use Topics ??? Alcohol use: Defer Family History Problem Relation Age of Onset ??? No Known Problems Mother ??? No Known Problems Father Anthropometrics: Wt Readings from Last 3 Encounters: 05/21/21 102.1 kg (225 lb) 12/16/20 100.9 kg (222 lb 6.4 oz) 12/13/20 101.9 kg (224 lb 9.6 oz) Anthropometrics Weight: 102.1 kg (225 lb) Admission Weight : 102.1 kg Weight Change: 1.17 kg (2.60 lbs) IBW/kg (Calculated) : 75.3 kg Height: 177.8 cm (5' 10 ) Weight in (lb) to have BMI = 25: 173.9 BMI (Calculated): 32.3 Nutrition Needs Calculations: Calculated Energy Needs Using Equations Weight: 102.1 kg (225 lb) Height: 177.8 cm (5' 10 ) Vital Signs: BP: 142/84 Temp: 36.6 ??C (97.9 ??F) Pulse: 73 Resp: 18 SpO2: 94 % Medications: Scheduled Meds: aspirin, 325 mg, oral, Daily Or aspirin, 300 mg, rectal, Daily atorvastatin, 80 mg, oral, Daily carBAMazepine XR, 600 mg, oral, BID clopidogreL, 75 mg, oral, Daily enoxaparin, 40 mg, subcutaneous, Daily-2100 fluticasone propionate, 1 spray, each nostril, Daily pantoprazole DR, 40 mg, oral, Daily rOPINIRole, 0.5 mg, oral, Nightly sodium chloride 0.9%, 0.5-20 mL, intra-catheter, Q8H AMILCAR umeclidinium-vilanteroL, 1 puff, inhalation, Daily valproate, 500 mg, oral, QID Continuous Infusions: PRN Meds: ??? acetaminophen ??? bisacodyL ??? bisacodyl EC ??? loratadine ??? ondansetron ODT OR ondansetron ??? polyethylene glycol ??? sodium chloride 0.9% ??? traZODone Lab Review: Sodium Date Value Ref Range Status 05/22/2021 144 135 - 145 mmol/L Final Potassium, pl Date Value Ref Range Status 05/22/2021 3.5 3.3 - 4.9 mmol/L Final BUN Date Value Ref Range Status 05/22/2021 15 8 - 25 mg/dL Final Creatinine Date Value Ref Range Status 05/22/2021 0.84 0.80 - 1.30 mg/dL Final Phosphorus, pl Date Value Ref Range Status 05/21/2021 2.6 2.3 - 4.5 mg/dL Final Albumin Date Value Ref Range Status 05/21/2021 4.5 3.5 - 5.0 g/dL Final Magnesium Date Value Ref Range Status 05/21/2021 1.7 1.4 - 2.5 mg/dL Final Calcium Date Value Ref Range Status 05/22/2021 8.6 8.5 - 10.3 mg/dL Final HDL Date Value Ref Range Status 05/22/2021 36 (L) >=40 mg/dL Final Comment: Interpretive Data Ages < or = 19 years Acceptable: >45 mg/dL Borderline low: 40-45 mg/dL Low: <40 mg/dL Ages > or = 20 years Desirable: >or= 60 mg/dL Low: <40 mg/dL Literature References: 1. Expert Panel on Integrated Guidelines for Cardiovascular Health and Risk Reduction in Children and Adolescents. Pediatrics 2011;128:S213 2. NCEP Expert Panel. Circulation 2004;110:227 Current Interpretive Data was last revised on 2017. ALT Date Value Ref Range Status 05/21/2021 31 7 - 55 Units/L Final AST Date Value Ref Range Status 05/21/2021 23 10 - 50 Units/L Final Alk phos Date Value Ref Range Status 05/21/2021 115 40 - 130 Units/L Final Lab Results Component Value Date HGBA1C 5.8 (H) 05/22/2021 HDL 36 (L) 05/22/2021 LDLCALC 64 05/22/2021 CHOL 162 05/22/2021 TRIG 311 (H) 05/22/2021 Nursing Assessment: Intake/Output Summary (Last 24 hours) at 05/23/2021 1404 Last data filed at 05/23/2021 0900 Gross per 24 hour Intake 300 ml Output 300 ml Net 0 ml Gastrointestinal Gastrointestinal (WDL): Within Defined Limits Last BM Date: 05/22/21 Last BM Date: 05/22/21 Matthew Scale Score: 20 Dietary Orders (From admission, onward) Start Ordered 05/22/21 0445 Adult Diet Restricted; Low Fat, Low Chol Diet effective now Question Answer Comment (BJ) Diet type Restricted Fat / Sodium Restriction: Low Fat, Low Chol 05/22/21 0444 Impression: RD consulted for stroke nutrition therapy. Pt denies any n/v/d/c. Pt denies chewing or swallowing difficulty. Pt passed dysphagia screen. Pt notes he is a and eats out a lot or his daughter prepares some meals. Pt admits to drinking coca cola soda every day and likes little sherrie snacks (optimization manager cupcakes). Pt appeared in the pre contemplation stage of change. NUTRITION DIAGNOSIS Nutrition Diagnosis 1: Food and nutrition-related knowledge deficit Related to: Acute illness/injury Evidenced by: (new stroke) INTERVENTION Educated patient on Stroke Nutrition Therapy. Handout provided and reviewed. Discussed lowering sodium, fat and cholesterol intake. Reviewed SMART labs. Emphasized to lower salt intake in both salty foods and adding salt while cooking. Recommended <140 mg of Na+ per serving. Focused on consumption of fresh/frozen fruits and vegetables, whole grains, adequate protein. GOALS / MONITORING: Goals: Patient/caregiver able to teach back understanding of role of diet in disease process prior to discharge Interventions: Education, nutrition Monitoring and Evaluation: Appetite, Blood glucoses, Discharge plans, I/O, Labs, Plan of care ER LAYER * Kristel Orellana RN - 05/22/2021 3:06 PM CSTAssociated Order(s): IS ANALYST CONSULT Smart Note for Stroke Patient presents from: home Arriving by: EMS To: ED Patient is an inpatient in division [address] with a clinical stroke diagnosis of TIA Patient was last known well at May 21, 2021 when he/she was noted with symptoms starting on May 21, 2021 of: IV TPA given: No Location: [place] intervention: No Patient stated goals: To get back to normal Recommendations: SMART to evaluate and develop appropriate rehab plan SMART Education Stroke warning signs , Patient instructed regarding how to activate EMS/911 and voice understanding: Yes, Discussed need to follow up after discharge for , Taught about prescribed medications: , Discussed risk factors: and Secondary stroke prevention instructions including: Discussed risk factors: hypertension elevated cholesterol CAD Secondary stroke prevention instruction includes:Medication compliance Reducing weight and/or increasing activity Appropriate diet (diabetic, heart, renal etc.) Blood pressure monitoring Maintain regular physician appointments Stroke education provided to: patient DVT prophylaxis includes:heparinoid To contact the SMART nurse call [phone] Business cards left with education packet for additional questions Database consent information: verbal consent for stroke database given consent in person consent obtained from patient ER LAYER * Gerry Jara MD - 05/21/2021 10:15 PM CSTAssociated Order(s): IP CONSULT TO NEUROLOGY Images from the original note were not included. Neurology Consult Service Initial Consult Note Patient: Humza Recio Visit date: 05/21/2021 Requesting Provider or Service: Sukhdev Tobar MD, Emergency Reason for Consult: dysarthria/aphasia Subjective HISTORY OF PRESENT ILLNESS Humza Recio is a 71-y/o man with past medical history significant for generalized epilepsy, hypertension, hyperlipidemia, coronary artery disease, COPD, small-vessel vasculitis with sudden onset trouble speaking at 18:45 this evening witnessed by daughter. ?? Patient was in his usual state of health with no illnesses recently when at 18:45 he experienced sudden onset of slurred speech and trouble getting his words out. Patient says he feels like he was able to think of the words but had trouble mechanically getting them out. This was witnessed by EMS. EMS felt like it was slightly intermittent but it greatly improved by [facility] attending witnessed dysarthria/word production difficulty at arrival to ED and feels that it is much better now. Patient reports that he is almost completely back to his baseline. He says that this may have been associated with some dizziness but specifically denies that the room was sp inning and denies any nausea. ?? Patient daughter agree this is not really happen before. Sometimes he becomes a little dysarthric immediately before or after a seizure, but is only seizure semiology is GTC. He has not had a GTC recently. He has never been witnessed to have staring spells, focal motor seizure, automatisms. He denies using any substances including alcohol, tobacco, illicits, marijuana, CBD. He says he always takes his AED medications as prescribed. His daughter agrees with this statement. His AED regimen is carbamazepine ER 600 b.i.d. and valproate 500 q.i.d. In regards to his prior vasculitis patient presented in mid 2020 with bloody diarrhea, abdominal pain, microscopic hematuria, rash. Skin biopsy demonstrated superficial and mid dermal perivascular interstitial mixed inflammatory cell infiltrate. There was not significant immunofluorescence staining. CT head and neck showed no evidence of vasculitis intracranially. It was suspected that this represented small vessel vasculitis presentation and the patient was treated successfully it appears on p.o. prednisone taper. It was considered somewhat atypical that there is no IgA immunofluorescence onskin biopsy. PAST MEDICAL & SURGICAL HISTORY Past Medical History: Diagnosis Date ??? COPD (chronic obstructive pulmonary disease) (CMS/HCC) (HCC) ??? Headache ??? Seizures (CMS/HCC) (HCC) Past Surgical History: Procedure Laterality Date ??? HERNIA REPAIR FAMILY HX: Family History Problem Relation Age of Onset ??? No Known Problems Mother ??? No Known Problems Father SOCIAL HX: reports that he quit smoking about 4 years ago. His smoking use included vaping and cigarettes. He has quit using smokeless tobacco. He denies current alcohol or drug use. OUTPATIENT MEDICATIONS HOME MEDICATIONS : aspirin (Adult Low Dose Aspirin) 81 mg enteric coated tablet atorvastatin (LIPITOR) 40 mg tablet carBAMazepine ER (CARBATROL) 300 mg 12 hr capsule fluticasone propionate (FLONASE) 50 mcg/actuation nasal spray hydroCHLOROthiazide (HYDRODIURIL) 25 mg tablet loratadine (CLARITIN) 10 mg tablet losartan (COZAAR) 50 mg tablet multivit with minerals/lutein (MULTIVITAMIN 50 PLUS ORAL) pantoprazole DR (PROTONIX) 40 mg EC tablet rOPINIRole (REQUIP) 0.5 mg tablet tiotropium bromide (SPIRIVA RESPIMAT) 2.5 mcg/actuation inhaler tiotropium-olodateroL (STIOLTO) 2.5-2.5 mcg/actuation inhaler valproate (DEPAKENE) 250 mg capsule REVIEW OF SYSTEMS A complete review of symptoms was performed including constitutional symptoms, cardiovascular, respiratory, gastrointestinal, genitourinary, musculoskeletal, neurological, psychiatric, endocrine, immunologic, integumentary, hematological, eyes, ears, nose, mouth and throat. All symptoms negative except as per HPI. Objective PHYSICAL EXAM Vitals: 24 hr Min/Max: Temp Min: 36.5 ??C (97.7 ??F) Max: 36.5 ??C (97.7 ??F) Pulse Min: 83 Max: 106 BP Min: 142/81 Max: 176/101 Resp Min: 13 Max: 18 SpO2 Min: 92 % Max: 94 % Most Recent: Vitals: 05/21/21 2135 BP: Pulse: 84 Resp: 18 Temp: SpO2: 92% Height: 177.8 cm (5' 10 ) Weight: 102.1 kg (225 lb) BMI (Calculated): 32.3 GENERAL EXAMINATION CONSTITUTIONAL: no acute distress, resting comfortably HENT: normocephalic, atraumatic, mucous membranes moist EYES: anicteric sclera PULM: no increased work of breathing CV/EXT: Extremities are warm and well perfused; no visible edema SKIN: dry, no suspicious rashes or lesions noted PSYCH: calm and cooperative, eye contact appropriate for medical condition NEUROLOGIC EXAM: Mental Status:The patient is alert and oriented to person, place, time and reason for visit. Attention is intact. Language: Normal fluency, repetition, and comprehension. Able to name all objects on NIH stroke card and describe aj lowry seen as well as read all sentences. He was able to briskly follow a 2 step command crossing midline. Cranial Nerves II-XII: Visual carvalho are full to wiggling. PERRL. EOMi without nystagmus. V1-3 is intact to light touch bilaterally. Face is symmetric, hearing is intact conversation. Tongue protrudes midline. Patient is mildly dysarthric with slow speech. Motor: Strength is 5/5 throughout. Muscle tone and bulk are normal. There is no pronator drift. Reflexes: Reflexes are 2+ at the biceps, brachioradialis and patellae. Sensation: Light touch is normal in all four extremities. Coordination: Finger to nose is normal bilaterally. [id number] normal bilaterally. Smooth coordinated movements without evidence of tremor. Ambulation:Gait is mildly unsteady. Able to ambulate independently. Lab/Radiology/Diagnostic Review: Basic Labs Recent Labs Lab Units 05/21/211947 WBC K/cumm 9.7 HEMOGLOBIN g/dL 16.1 HEMATOCRIT % 47.9 PLATELETS K/cumm 245 Recent Labs Lab Units 05/21/21195405/21/211947 SODIUM mmol/L -- 145 POTASSIUM PLASMA mmol/L -- 3.5 CHLORIDE mmol/L -- 105 CO2 mmol/L -- 27 BUN SERUM mg/dL -- 12 CREATININE mg/dL -- 0.98 GLUCOSE mg/dL -- 118 POC GLUCOSE MONITOR mg/dL 106 -- CALCIUM mg/dL -- 9.9 MAGNESIUM mg/dL -- 1.7 Recent Labs Lab Units 05/21/211947 ALK PHOS Units/L 115 BILIRUBIN TOTAL mg/dL 0.3 TOTAL PROTEIN g/dL 7.7 ALT Units/L 31 AST Units/L 23 Liver Function Tests & Damage Markers Lab Results Component Value Date INR 1.1 05/21/2021 ALBUMIN 4.5 05/21/2021 AST 23 05/21/2021 ALT 31 05/21/2021 ALKPHOS 115 05/21/2021 BILITOT 0.3 05/21/2021 BILIDIR <0.2 08/19/2020 Metabolic Syndrome Screening No results found for: CHOL, HDL, LDLCALC, TRIG, HGBA1C Urinalysis Lab Results Component Value Date COLORU Marci 12/16/2020 CLARITYU Clear 12/16/2020 SPECGRAVU 1.027 (H) 12/16/2020 PHURINE 5 12/16/2020 PROTURQL 1+ (A) 12/16/2020 GLUCOSEUR Negative 12/16/2020 KETONESU Negative 12/16/2020 BLOODUR Negative 12/16/2020 UROBILINOGEN 4.0 (A) 12/16/2020 NITRITEU Negative 12/16/2020 LEUKESTUR Negative 12/16/2020 WBCU 0-5 12/16/2020 RBCU 0-2 12/16/2020 EPISQUAMU 1-5 12/16/2020 Drug Screen No results found for: ETOH, AMPHETUR, BARBITURATE, LABBENZUR, CANNABINOIDS, COCAINE, FENTUR, METHADONE, LABOPIA, OXYCODONE, PCPUR Neuro Diagnostics: Results for orders placed or performed during the hospital encounter of 05/21/21 CT Head WO Contrast Narrative EXAMINATION: CT head without contrast HISTORY: Dysarthria. TECHNIQUE: Noncontrast CT of the brain was performed with images acquired from skull base to vertex. COMPARISON: CT dated 08/23/2020. FINDINGS: Topogram demonstrates no lytic lesions or fractures. There is no acute intracranial hemorrhage. Ventricles are of normal size and morphology. No mass effect or midline shift is present. The vazquez-white matter differentiation is normal. The visualized portions of the orbits are normal. The visualized portions of the mastoids are normal. Bilateral mucous retention cyst noted in the maxillary sinuses. Vascular calcification of the intracranial vessels. No fractures are identified. Impression No acute intracranial abnormality. The time sensitive The time sensitive CT HEAD W/O was communicated by Dr. Nichols to stroke team at 05/21/2021 at 940 PM Dictated by: Viktoria Morel M.D. Results for orders placed or performed during the hospital encounter of 08/18/20 CTA Head W WO Contrast Narrative EXAMINATION: Computed tomography angiography (CTA) of the head without and with contrast HISTORY: Worsening lower extremities back, concern for vasculitis, history of seizures. TECHNIQUE: Computed tomography of the head was performed without contrast according to standard protocol. Computed tomographic angiography was then obtained from the skull base to the vertex following the uneventful administration of intravenous contrast. 3D images were generated on a dedicated workstation. Contrast information: 100 mL [id number]-350 COMPARISON: No direct relevant comparison, PET/CT dated 12/17/2017. FINDINGS: Topogram demonstrates no lytic lesions or fractures. There is no acute intracranial hemorrhage. There is mild diffuse cerebral atrophy, with ex vacuo dilatation of the ventricles. No mass effect or midline shift is present. The vazquez-white matter differentiation is normal. The visualized portions of the orbits are normal. The visualized portions of the mastoids are normal. Partially visualized bilateral maxillary sinus mucous retention cysts. No fractures are identified. Atherosclerotic calcification of the vertebral arteries and carotid siphons Angiographic findings: The visualized course and caliber of the internal carotid arteries are normal. No areas of filling defects are identified. There is mild focal narrowing of the left A2 segment anterior cerebral artery. The middle cerebral arteries and right anterior cerebral artery are normal. Dominant right vertebral artery. The basilar artery is normal. The posterior cerebral arteries are normal. There is no aneurysm or vascular malformation identified. Impression 1. No acute intracranial abnormality. 2. Mild atherosclerotic disease of intracranial vessels, with mild focal narrowing of the left A2 segment anterior cerebral artery. No CT angiogram evidence of vasculitic process at this time. Dictated by: Petra Little M.D. The radiology attending physician has personally reviewed this study, and had reviewed and/or edited this written report and agrees with it. Electronically signed by: Joselin Seo M.D. Assessment/Plan ASSESSMENT AND PLAN Mr. Recio is a 71 y.o. male with multiple vascular risk factors who presents with sudden onset dysarthria and speech production difficulty. History and exam is inconclusive if speech production difficulty is due to primary dysarthria versus aphasia. History is suggestive of aphasia however patient denies trouble thinking of words and deficits on exam are mild enough that it is difficult to differentiate. Differential for this presentation includes TIA versus toxic metabolic etiology including AED toxicity versus new seizure semiology. # rapidly improving sudden onset dysarthria and speech production difficulty Recommendations: 1. If VPA and carbamazepine levels are low to normal, please admit to stroke neurology primary service under Dr. Schilling [id number] for TIA work-up 2. Please obtain CTA H&N if admitting to stroke neurology service. Thank you for this consult. Please do not hesitate to contact us with any questions or concerns. If you have any questions or need re-evaluation in the interim, please contact neurology consults senior resident at [phone] and specify that this consult was staffed with Consult Team A. Gerry Jara MD Neurology Resident, PGY-2 The above recommendations are preliminary until staffed with an Attending. All attempts are made for new consults to be staffed within 24hrs of placing the order in [facility] and final recommendations will follow shortly. Naturally, the plan is subject to change pending formal staffing. For urgent questions/updates please call [phone] (consult senior). Please note during the day there are three consult teams (Consult A, Consult B, and HASTE team), and you may be redirected the appropriate republican. ER LAYER * Gerry Jara MD - 05/21/2021 10:01 PM CSTAssociated Order(s): IP CONSULT TO NEUROLOGY Hyperacute Stroke Team - HASTE Consult Note Initial information: Narrative: Mr. Recio is a 71 y.o. male who presents as an acute tPA page. 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 Patient was in his usual state of health with no illnesses recently when at 18:45 he experienced sudden onset of slurred speech and trouble getting his words out. Patient says he feels like he was able to think of the words but had trouble mechanically getting them out. This was witnessed by EMS. EMS felt like it was slightly intermittent but it greatly [facility] witnessed dysarthria/word production difficulty at arrival to ED and feels that it is much better now. Patient reports that he is almost completely back to his baseline. He says that this may have been associated with some dizziness but specifically denies that the room was sp inning and denies any nausea. Patient daughter agree this is not really happen before. Sometimes he becomes a little dysarthric immediately before or after a seizure, but is only seizure semiology is GTC. He has not had a GTC recently. He has never been witnessed to have staring spells, focal motor seizure, automatisms. He denies using any substances including alcohol, tobacco, illicits, marijuana, CBD. He says he always takes his AED medications as prescribed. His daughter agrees with this statement. Stroke risk factors: Age over 55, CAD, Hyperlipidemia and Hypertension Notable home meds (i.e., anticoagulation): aspirin Past medical history, past surgical history, current medications, allergies, family history and social history were reviewed, and are noted at the end of this note. Vitals: 05/21/21 2135 BP: Pulse: 84 Resp: 18 Temp: SpO2: 92% Patel labs (FSBG, INR, platelets, Xa): Lab Results Lab Value Date/Time GLUCOSE 106 05/21/20211954 GLUCOSE 118 05/21/20211947 INR 1.1 05/21/20211947 HCT findings: NAIA Thrombolytic decision: tPA decision: NO GO. Rationale: Diagnosis is not likely stroke, more likely a stroke mimic and Other rapidly improving symptoms tPA decision time (24 hour format): 21:46 tPA bolus time (24 hour format): N/A, tPA not given BP prior to tPA bolus: N/A, tPA not given Reason for tPA delay (>30 mins [id number], if applicable): N/A, patient did not receive tPA Thrombectomy decision: LVO on CTA?: N/A, patient did not have a CTA CTA read time/fellow: N/A, patient was not a candidate for CTA CTP: ?? Core volume: N/A, CT perfusion not performed mL ?? Penumbra volume: N/A, CT perfusion not performed mL ?? Mismatch ratio: N/A, CT perfusion not performed Baseline functional status: MRS 0: The patient has no symptoms. Intervention: NO-GO: Rationale: NIHSS <6 (or <10 in the 16-24 hour window) Neuro-IR contact time: N/A, Patient NO-GO for intervention Hyperacute MRI Indication: Not performed Findings: N/A, not performed Wake-up stroke: ?? Time of symptom discovery (24h format): N/A, patient not a candidate for WAKE-UP protocol ?? DWI-FLAIR mismatch: N/A, patient not a candidate for protocol ?? MRI read time/fellow: N/A, patient was not a candidate for protocol Physical Examination: BP 142/81 Pulse 84 Temp 36.5 ??C (97.7 ??F) (Oral) Resp 18 Ht 177.8 cm (5' 10 ) Wt 102.1 kg (225 lb) SpO2 92% BMI 32.28 kg/m?? GEN: NAD HEENT: NC/AT, MMM CV: Regular rate and rhythm PULM: No increased work of breathing ABD: Soft, nontender, nondistended EXT: Warm and well-perfused SKIN: Warm and dry Neurologic Examination: Mental status: Awake, Alert, Oriented x 3 (person, place and time) Speech: Normal fluency, repetition, and comprehension. and Dysarthric. Able to name all objects on NIH stroke card and describe aj lowry seen as well as read all sentences. He was able to brisklyfollow a 2 step command crossing midline. Cranial Nerves: II: Pupils equal and reactive bilaterally, visual carvalho full, III/IV/: Extraocular movements intact without nystagmus, V: Facial sensation normal bilaterally, VII: Facial muscle activation normal bilaterally and XII tongue midline Mildly dysarthric with slow speech. No vertical skew, no nystagmus. Motor: Normal bulk and tone of the four extremities. 5/5 strength in the bilateral upper and lower extremities, no pronator drift Reflexes: 2+ bilateral reflexes in the biceps and patella Sensory: Normal sensation to light touch in the four extremities Coordination Gait: FTNi, HKSi, mildly unsteady gait but able to ambulate independently. Inattention: No extinction/inattention to double simultaneous tactile stimulation and No extinction/inattention to bilateral visual stimulus Assessment & Plan: Mr. Reico is a 71 y.o. year old male with multiple vascular risk factors the presented with sudden onset dysarthria and word production difficulty at 18:45 that gradually improved almost back to baseline at time of tPA decision making. NIHSS was a 1 for dysarthria. Although not personally examined, per history, it sounds that his maximum NIHSS was probably a 2 for dysarthria and mild aphasia. He was in NO-GO for alteplase due to rapidly improving symptoms and suspicion for stroke mimics such as medication toxidrome. He was a NO-GO for mechanical thrombectomy and did not receive a CTA/CTP due to low NIHSS score. Plan: 1. STAT total valproic acid and carbamazepine levels 2. Will plan to admit to stroke primary service for TIA workup if no clear toxic metabolic etiologyis found for patient's sudden onset symptoms. Case discussed with PGY 4 Russ Mccann. The HASTE team will sign off, and the neurology consult team will continue to follow. For acute neurologic change and repeat stroke assessment, please activate the tPA pager at [phone]. For a non-emergent consult to neurology, please call the consult cellphone at [phone]. Gerry Jara MD 05/21/2021, 10:02 PM Subjective Past Medical History: Past Medical History: Diagnosis Date ??? COPD (chronic obstructive pulmonary disease) (CMS/HCC) (HCC) ??? Headache ??? Seizures (CMS/HCC) (HCC) Past Surgical History: Past Surgical History: Procedure Laterality Date ??? HERNIA REPAIR Medications: No current facility-administered medications on file prior to encounter. Current Outpatient Medications on File Prior to Encounter Medication Sig Dispense Refill ??? aspirin (Adult Low Dose Aspirin) 81 mg enteric coated tablet Take 1 tablet (81 mg total) by mouth daily 30 tablet 11 ??? atorvastatin (LIPITOR) 40 mg tablet Take 2 tablets (80 mg total) by mouth daily 60 tablet 11 ??? carBAMazepine ER (CARBATROL) 300 mg 12 hr capsule daily ??? fluticasone propionate (FLONASE) 50 mcg/actuation nasal spray fluticasone propionate 50 mcg/actuation nasal spray,suspension SHAKE LIQUID AND USE 1 SPRAY IN EACH NOSTRIL EVERY DAY ??? hydroCHLOROthiazide (HYDRODIURIL) 25 mg tablet 25 mg daily ??? loratadine (CLARITIN) 10 mg tablet Take 10 mg by mouth daily as needed ??? losartan (COZAAR) 50 mg tablet Take 1 tablet (50 mg total) by mouth daily 30 tablet 11 ??? multivit with minerals/lutein (MULTIVITAMIN 50 PLUS ORAL) Take by mouth ??? pantoprazole DR (PROTONIX) 40 mg EC tablet Take 1 tablet (40 mg total) by mouth daily 30 tablet0 ??? rOPINIRole (REQUIP) 0.5 mg tablet ropinirole 0.5 mg tablet TAKE 1 TABLET BY MOUTH EVERY NIGHT AT BEDTIME ??? tiotropium bromide (SPIRIVA RESPIMAT) 2.5 mcg/actuation inhaler Spiriva Respimat 2.5 mcg/actuation solution for inhalation INHALE 2 PUFFS PO QD (Patient not taking: Reported on 12/16/2020) ??? tiotropium-olodateroL (STIOLTO) 2.5-2.5 mcg/actuation inhaler Stiolto Respimat 2.5 mcg-2.5 mcg/actuation solution for inhalation ??? valproate (DEPAKENE) 250 mg capsule valproic acid 250 mg capsule TK 2 CS PO QAM AND 2 CS PO AT NOON AND 5PM THEN 2 CS PO QHS Allergies: No Known Allergies Family History: Family History Problem Relation Age of Onset ??? No Known Problems Mother ??? No Known Problems Father Social History: Social History Tobacco Use ??? Smoking status: Former Smoker Types: Vaping, Cigarettes Quit date: 09/17/2016 Years since quittin.6 ??? Smokeless tobacco: Former User Vaping Use ??? Vaping Use: Former Substance Use Topics ??? Alcohol use: Defer ??? Drug use: Defer Review of Systems: A complete??review of systems was performed including symptoms pertaining to the following systems:constitutional, cardiovascular, respiratory, gastrointestinal, genitourinary, musculoskeletal, neurological, psychiatric, endocrine, immunologic, integumentary, hematological, eyes, and ears, nose, mouth, and throat.?All systems were negative except as noted in the History of Presenting Illness??(HPI). ER LAYER documented in this encounter Nursing Notes * Lisbeth Forrest RN - 05/24/2021 2:00 PM CST Assessment of patient???s baseline is established at the beginning of the shift in flowsheets. Patient reassessed per order, unexpected findings and/or deviations from baseline are captured in flowsheets. Frequent safety checks and comfort rounds provided. Orders and/or nursing care completed as indicated. Patient monitored for response to interventions and treatments as documented in flowsheets. Plan of care discussed with patient/security systems sales representative, including as it relates to Principal Problem: TIA (transient ischemic attack) Patient progressing. Clinical goals for the shift are to remain free from falls and discharge planning. Education provided includes Discharge Planning and Fall Prevention. Patient and/or security systems sales representative Verbalizes understanding. Will continue to monitor. ER LAYER * Darlene Garcia RN - 05/24/2021 1:41 AM CST Patient off the floor to MRI at this time. 01:37. ER LAYER * Lisbeth Forrest RN - 05/22/2021 4:09 PM CST Assessment of patient???s baseline is established at the beginning of the shift in flowsheets. Patient reassessed per order, unexpected findings and/or deviations from baseline are captured in flowsheets. Frequent safety checks and comfort rounds provided. Orders and/or nursing care completed as indicated. Patient monitored for response to interventions and treatments as documented in flowsheets. Plan of care discussed with patient/security systems sales representative, including as it relates to Principal Problem: TIA (transient ischemic attack) Patient progressing. Clinical goals for the shift are to remain free from falls. Education providedincludes Fall Prevention. Patient and/or security systems sales representative Verbalizes understanding. Will continue to monitor. ER LAYER documented in this encounter ED Notes * Beatriz Treadwell MD - 05/21/2021 9:48 PM CST HPI Chief Complaint Patient presents with ??? Unable to speak HPI 71-year-old male, history of generalized epilepsy, HTN, HLD, CAD, COPD,??small- vessel vasculitis??(colon, skin), and chronic pain (DJD) who presented on 05/21 with sudden onset dysarthria and word finding difficulty as witnessed by daughter that gradually improved upon arrival to [facility] ED. Last known at baseline on 05/21 just prior to onset of symptoms at 184 Endorses difficulty breathing but denies chest pain, abdominal pain, nausea, vomiting, back pain, neck pain, neck stiffness. USOH until 1844 when he experienced sudden onset slurred speech and word-finding difficulty. This was witnessed by daughter and later on by EMS. Patient was awake and interactive during the episodes where he had the symptoms. Per EMS, the symptoms since being intermittent and by the time of ED arrival, his symptoms seem to be mostly resolving. Has never had anything similar to this before. Endorses compliance with his antiepileptics, heart mass the pain and valproic acid. His only seizures semiology is generalized tonic-clonic. Denies illicit drug use, tobacco, ETOH Patient History: Patient Active Problem List Diagnosis Date Noted ??? TIA (transient ischemic attack) 05/22/2021 ??? Primary hypertension 11/10/2020 ??? Atherosclerosis of [place] coronary artery without angina pectoris 11/10/2020 ??? Petechiae 08/19/2020 ??? Chronic obstructive pulmonary disease with acute exacerbation (CMS/HCC) (HCC) ??? Hyperlipidemia 11/08/2016 Past Medical History: Diagnosis Date ??? COPD (chronic obstructive pulmonary disease) (CMS/HCC) (HCC) ??? Headache ??? Seizures (CMS/HCC) (HCC) Past Surgical History: Procedure Laterality Date ??? HERNIA REPAIR Family History Problem Relation Age of Onset ??? No Known Problems Mother ??? No Known Problems Father Social History Tobacco Use ??? Smoking status: Former Smoker Types: Vaping, Cigarettes Quit date: 09/17/2016 Years since quittin.6 ??? Smokeless tobacco: Former User Vaping Use ??? Vaping Use: Former Substance Use Topics ??? Alcohol use: Defer Social History Social History Narrative ??? Not on file Review of Systems Review of Systems Neurological: Positive for speech difficulty. All other systems reviewed and are negative except as indicated in the HPI Physical Exam ED Triage Vitals Temp Pulse Resp BP SpO2 05/21/21194405/21/21194305/21/21194305/21/21194405/21/211943 36.5 ??C (97.7 ??F) 106 18 (!) 176/101 94 % Temp src Heart Rate Source Patient Position BP Location FiO2 (%) 05/21/21194405/22/2121405/22/2121405/22/21214 -- Oral Pulse Oximetry Sitting Left arm Physical Exam Physical Exam Vital signs reviewed. Nursing notes reviewed. General: alert and interactive, +acute distress Head: atraumatic without swelling or palpable bony abnormality. Eyes: PERRL, EOMI ENT: Moist mucous membranes, no blood/exudates/erythema in posterior oropharynx Neck: supple, normal examination Respiratory: Tachypneic, Lungs clear to auscultation bilaterally, no crackles or wheeze Cardiac: Tachycardic, regular rhythm 2+ radial and DP pulses bilat. Abdomen: soft, non-tender, no guarding or rebound, no hepatosplenomegaly, no palpable mass. Skin: no generalized rashes, warm and dry Extremities: moving all 4 extremities actively, no joint swelling or obvious deformity. Neurologic: AAOx4, CNII-XII grossly normal, mild dysarthria but no other focal neuro deficits Psychiatric: normal mood & affect MDM MDM Differential includes TIA/CVA, partial sz, complex migraine, patient is tachypneic but clear breathsounds to auscultation bilaterally; very low concern for a COPD exacerbation. There is also consideration for ACS/mi. No chest pain so less concern for an aortic dissection. Plan for head CT. Will consult neurology. Likely NO-GO for tPA given improving symptoms. NIH stroke scale score of 1 so less concern for large vessel occlusion. Disposition pending clinical course Attending Summary of Care ED Course as of 05/23/21 0516 Time: 05/21 2025 Value: XR Chest 1 Vw Portable Comment: Bilateral aspiration changes By: Beatriz Treadwell MD Time: 05/21 2109 Comment: Neuro consulted By: Beatriz Treadwell MD Time: 05/21 2135 Comment: Neurology: Set of the stroke pager. Missed of 1 for dysarthria. This concerns at this is debilitating and that the patient could potentially benefit from tPA. Charge nurse has been made aware. Patient's blood pressure has been well controlled while he has been in the ED; less than 185/110 By: Beatriz Treadwell MD Time: 05/21 2137 Comment: Patient has been consented and consents to tPA. The nurses currently grabbing it. By: Beatriz Treadwell MD Time: 05/21 2158 Comment: On re-examination (tPA not yet given), pt's speech is full, normal betzaida and speed. He feels nearly back to normal and much better compared to initial symptom onset. No other neuro deficits. Discussed with neuro resident, who also discussed with neuro attending. Will hold off on tPA at this time and continue to monitor. Updated pt's daughter who is on her way from [place]. (Marci [phone]) By: Sukhdev Tobar MD Time: 05/21 2223 Value: CT Head WO Contrast Comment: NAICP By: Beatriz Treadwell MD Time: 05/21 2306 Comment: Care assumed H/o seizure d/o on anitepileptics CC slurred speech 18:45 onset On EMS exam, dysarthria noted, improved en route On ED exam, speech slow but no aphasia, no obvious dysarthria NIHSS 1 No TPA Neuro recommends valproic acid, carbamazepine levels Admission for TIA workup anticipated By: Elsa Rowell MD Time: 05/21 2313 Comment: Neurology: Waiting for the carbamazepine level before deciding to the admit are not likelyadmit if the carbamazepine level is within normal limits as this suggests that drug toxicity is notthe etiology of the patient's symptoms By: Beatriz Treadwell MD Time: 05/22 0053 Comment: Neuro: ok for admit By: Beatriz Treadwell MD TIA (transient ischemic attack) Dysarthria Beatriz Treadwell MD Resident 05/23/21 0516 Cosigned by Sukhdev Tobar MD at 05/26/2021 10:28 AM BINDER LAYER ER LAYER ER LAYER Associated attestation - Sukhdev Chaudhary MD - 05/26/2021 10:28 AM BINDER LAYER I have seen and examined the patient on 05/21/2021. I agree with the findings and plan of care as documented in the resident's note. * Christina Ramirez RN - 05/21/2021 7:41 PM CST Pt presents from home with LKN at 1845, daughter noticed slurred speech and called EMS. Reportedly had periods of aphasia en route with EMS, x2 episodes that resolved spontaneously. Pt arrives with some slowed betzaida to speech, difficulty word finding, speaking slowly and deliberately, but otherwise neuro in tact. Answering orientation questions appropriately, GCS 15. MAEW. ER LAYER ER LAYER * Antony Loyola RN - 05/21/2021 7:40 PM CST Bed: [facility] Expected date: Expected time: Means of arrival: Comments: GC [id number] Antony Loyola, LOCO 05/21/211939 ER LAYER documented in this encounter Miscellaneous Notes * ED Procedure Note - Sukhdev Tobar MD - 05/24/2021 2:58 PM BINDER LAYER Associated Order(s): Critical Care Procedure Critical Care Performed by: Sukhdev Tobar MD Authorized by: Elsa Rowell MD Critical care provider statement: As reflected in the history, physical exam, orders, notes, and/or MDM, I was personally present while the patient was critically ill and provided critical care services for approximately 60 minutes, excluding time involved in separately billable procedures. Critical care was necessary to treat or prevent imminent or life-threatening deterioration of the following condition(s): acute cerebrovascular accident (CVA) Critical care was time spent by me providing the following: continuous telemetry, continuous pulse oximetry and interpretation of bedside monitors, imaging, and arterial/venous lab draws frequent neurologic exams and decision regarding acute lytic therapy I provided emergent necessary critical care medicine services to this patient. I ordered and reviewed test results and/or imaging studies. I spent time discussing the management of this critically ill patient with consultants and the medical staff. I spent time discussing the management and therapeutic options for this critically ill patient with the patient themselves or with the appropriate designated surrogate decision-maker. I spent time documenting in the medical record. I admitted this patient to a continuous cardiac monitored bed. Date of service: 05/21/2021 Sukhdev Tobar MD 06/22/21 2333 Sukhdev Tobar MD 06/28/21 1535 * Plan of Care - Jennifer Rehman RN - 05/24/2021 1:43 PM CST [address] [address] Date: May 22, 2021 ?? Ambulatory referral to Home Health ?? Patient: Humza Recio [address] [facility] [address] : 1950 SSN: [id number] Sex: M Insurance: Member ID: ? Referring Provider Information: ERNA SCHILLING ?? Referral Information: # Visits: 1 Referral Type: Home Health [42] Urgency: Routine Referral Reason: Specialty Services Required Start Date: May 22, 2021 End Date: To be determined by Insurer Diagnosis: TIA (transient ischemic attack) (G45.9) Refer to Dept: [facility] Home Care Services [address] [place], [address] ?? Service Line: Home Health Primary disciplines requested: Correction Primary disciplines requested: Physical Therapy Secondary disciplines requested: Occupational Therapy Home Health Services: Therapy to Eval/ Treat Physician to follow patient's care (the person listed here will be responsible for signing ongoing orders): PCP Requested Start of Care Date: Tomorrow I attest that I or another qualified licensed provider saw the patient 90 days prior to or 30 days post admission and this face to face encounter meets the necessary Home Health requirements. The face to face encounter occurred on (date): 05/22/2021 The encounter with the patient was in whole, or in part, for the following medical condition, whichis the primary reason for home health care. (List medical condition): TIA I certify that, based on my findings, the following services are medically necessary skilled home health services: Therapy to Eval/ Treat Clinical findings that support the need for home care: Medical condition requiring skilled assessment/education I certify that my clinical findings support patient's homebound status. Homebound criteria met because: Abnormal gait/unsteady balance resulting in fall risk ? [employer]: Erna Schilling MD ? This document serves as a request of services and does not constitute Insurance authorization or approval of services.?? To determine eligibility, please contact the member???s Insurance carrier to verify and review coverage. ?? If you have medical questions regarding this request for services. Please contact [facility] [phone] between the hours of 8:00am - 4:30pm (Mon-Fri). ?? ER LAYER * Hospital Course - Rohini Isaac MD - 05/24/2021 4:00 AM CST Humza Recio is a 71 y.o. male with a past medical history significant for generalized epilepsy,HTN, HLD, CAD, COPD, small-vessel vasculitis (colon, skin), and chronic pain (DJD) who presented on05/21 with sudden onset dysarthria and word finding difficulty as witnessed by daughter that gradually improved upon arrival to [facility] ED. Last known at baseline on 05/21 just prior to onset of symptoms at 1845. NIHSS 1 (dysarthria) on initial assessment. CT head non-con with no acute abnormalities. NO GO for tPA given rapid improvement of symptoms. NO GO for thrombectomy as CTA/CTP not pursued given low NIHSS. Patient was admitted o the stroke service for further management. # Intermittent dysarthria and expressive aphasia: TIA vs functional Following admission, patient treated as TIA given initial resolution of symptoms and ABCD2 score 5.He underwent TIA workup as detailed below. He then had a similar event witnessed by our staff on 05/22 that was described similar to the event that brought him here. On witnessed event patient had impaired fluency (very effortful, slow speech) but intact naming, repetition, comprehension. His attention was intact and he was able to point out where in the room the stroke cards were located. He was complaining of heart beating hard as well. BP elevated to 190s systolic. Symptoms resolved after afew minutes. We obtained a rEEG that only showed mild gen slowing. Due to this event, we pursued a bMRI wo contrast that showed no acute stroke. As for consideration for TIA, workup as follows: Workup for risk factor modification revealed: Hemoglobin A1c 5.8, LDL 64 ECG showed NSR CTA head and neck W/WO: unremarkable MRI: No acute stroke TTE EF 78%, mild LV hypertrophy, negative bubble study He given a load of ASA 325 and Plavix 300 mg, and continued on aspirin 81 mg PO qD indefinitely andPlavix 75 mg PO qD x21 days for secondary prevention (CHANCE trial: minor stroke NIHSS =< 3 or high-risk TIA ABCD2 >= 4). Last day of Plavix would be (06/11/21). He was placed on a loop recorder on discharge for 30 days to monitor for any cardiac arrhythmias. He was started on atorvastatin 80 mg PO qHS (SPARCL trial). The current [place] Stroke Associationguidelines recommend long-term treatment with a high- intensity statin even in patient's with LDL level <100, if tolerated. (The SPARCL trial, Romana et al. 2010, showed that statin treatment shouldnot be titrated to LDL level.) SMART Consult was performed and PT/OT recommended discharge to home with home health. The patient will follow up in the [facility] clinic with his Neurologist. Risk factors were optimized on discharge. Patient and family were advised regarding the risks of new stroke, signs and symptoms of stroke, and how best to avoid a further event. Other medical issues: # Epilepsy Reportedly seizure-free for past 30 years We continued home Carbamazepine 600 BID, Valproate 500 QID # HTN Home meds HCTZ 25 daily, Losartan 50 daily held during admission and restarted at discharge. # HLD We continued home Atorvastatin 80 daily # CAD We continued home ASA, Atorvastatin as above # COPD Tiotropium-olodaterol (Stiolto) at home. We had him on formulary alternative Anoro Ellipta while inpatient #Prediabetes A1C 5.8. Patient to continue to follow up with primary care physician. ER LAYER ER LAYER ER LAYER ER LAYER ER LAYER ER LAYER * ULI Sawyer - Jennifer Rehman RN - 05/22/2021 3:18 PM CST Images from the original note were not included. Patient Information: OT Eval and Treat Last 72 Hours OT Evaluation Row Name 05/22/21 0915 Chart Reviewed Yes -KG Session Type Evaluation initial discharge -KG OT Received On 05/22/21 -KG Safe Environment Arm Band Checked;Call Light within Reach;Patient found in Supine;Overbed Table within Reach pt in supine at end of session -KG Subjective Agreeable to Therapy -KG Subjective Comment Pt. stated that when he changes position his head feels somewhat dizzy -KG Family/Caregiver Present No -KG Occupational Therapy-Patient Goal pt did not state any OT goal -KG Precautions Fall risk;Seizure -KG Type of Home House -KG Home Layout One level -KG Home Mobility Equipment None -KG Level of [place] Independent with ADLs;Independent with ambulation;Needs assistance with homemaking -KG Lives With Alone -KG Receives Help From Family pt reports his daughter checks on him and sometimes brings him food or takes him places -KG Driving Yes -KG Vocational/Occupation Retired -KG Grooming: Where assessed Standing at sink -KG Grooming: Level of assistance Standby Assist -KG Toileting: Where assessed -- chair, simulated -KG Toileting: Level of assistance Standby Assist -KG Toilet Transfers Supervision simulated with chair -KG Pain Assessment No/denies pain -KG Current Vision Wears glasses all the time -KG Arousal/Alertness Alert;Appropriate responses to stimuli -KG Attention Span Appears intact -KG Memory Appears intact -KG Orientation Oriented X4 (person, place, time, situation) -KG Following Commands Follows all commands and directions without difficulty -KG Compliance/Behavior Easy to engage -KG Light Touch WFL BUE -KG Hand Preference Right -KG Static Sitting-Balance Support No upper extremity supported;Feet supported -KG Static Sitting-Sitting Surface Bed -KG Static Sitting-Level of Assistance Independent -KG Static Standing-Balance Support No upper extremity supported -KG Static Standing-Standing Surface Floor -KG Static Standing-Level of Assistance Close supervision -KG Bed Mobility From 1 Supine -KG Bed Mobility Type 1 To and from -KG Bed Mobility to 1 Edge of bed -KG Level of Assistance 1 Independent -KG Transfer From 1 Sit -KG Transfer Type 1 To and from -KG Transfer to 1 Stand -KG Transfer Level of Assistance 1 Standby Assist -KG Trials/Comments 1 Functional room mobility to bathroom sink with supervision; however, pt. did report he felt woozy with position changes. -KG RUE Assessment -- AROM WFL -KG LUE Assessment -- AROM WFL -KG Putting on and taking off regular lower body clothing 3 -KG Bathing 3 -KG Toileting 3 -KG Putting on and taking off upper body clothing 4 -KG Personal Grooming 3 -KG Eating Meals 4 -KG Total Score (range 6-24) 20 -KG Score Interpretation 42.03 -KG Plan If this is the last note, consider this the discharge summary -KG OT Recommendation Home with family;Home Health OT recommend no driving currently, due to pt. reportof symptoms. Recommend someone stay with pt. at least initially when discharged. -KG OT Frequency One-time visit (Discharge from this service) 0 -KG OT - OK to Discharge Yes -KG OT Evaluation Complete Yes -KG User Patel (r) = Recorded By, (t) = Taken By, (c) = Cosigned By Initials Name Effective Dates KG Ashlee Esteban, OT 12/15/18 - OT Treatment No documentation. OT Notes 05/22/2021 1:38 PM Progress Notes signed by Ashlee Esteban, OT , OT Eval and Treat Last Documented OT ASSESSMENT FLOWSHEET LAST DOCUMENTED (most recent) OT Evaluation - 05/22/21 1110 Cognition Orientation Oriented X4 (person, place, time, situation) OT TREATMENT FLOWSHEET LAST DOCUMENTED (most recent) OT Treatment - 05/22/21 1110 Cognition Orientation Oriented X4 (person, place, time, situation) OT Notes 05/22/2021 1:38 PM Progress Notes signed by Ashlee Esteban, OT , PT Eval and Treat Last 72 Hours PT Evaluation Row Name 05/22/21 0803 Chart Reviewed Yes -MW Session Type Evaluation -MW Safe Environment Arm Band Checked;Call Light within Reach;Notified RN;Patient found in Supine end of session, pt seated at EOB with all needs met -MW Subjective Agreeable to Therapy -MW Family/Caregiver Present No -MW Physical Therapy-Patient Goal Improve balance/steadiness with walking -MW Precautions Fall risk;Seizure -MW Type of Home House -MW Home Layout One level -MW Home Access Level entry -MW Home Mobility Equipment None -MW Additional Comments Pt reports no use of AD at baseline -MW Level of [place] Independent with ADLs;Independent functional transfers;Independent with ambulation;Independent with homemaking with ambulation -MW Lives With Alone -MW Receives Help From Family Pt reports his daughter could stay with him for FTA as needed -MW Fall within the last 6 months No -MW Prior Function Comments Pt reports he is normally very independent and active at baseline. -MW Activity Tolerance Comments Khadijah: somewhat hard -MW Pain Assessment No/denies pain -MW Arousal/Alertness Alert;Appropriate responses to stimuli -MW Orientation Oriented X4 (person, place, time, situation) -MW Following Commands Follows all commands and directions without difficulty -MW Safety Judgment Good awareness of safety precautions -MW Light Touch WFL BLE -MW Numbness/Tingling No -MW Sensation Comments skin intact and no edema noted BLE -MW Balance Yes -MW Static Sitting-Balance Support No upper extremity supported;Feet supported -MW Static Sitting-Sitting Surface Bed -MW Static Sitting-Level of Assistance Independent -MW Static Standing-Balance Support No upper extremity supported -MW Static Standing-Standing Surface Floor -MW Static Standing-Level of Assistance Close supervision -MW Static Standing-Comment/# of Minutes SPV for safety -MW Bed Mobility Yes -MW Bed Mobility From 1 Supine -MW Bed Mobility Type 1 To -MW Bed Mobility to 1 Edge of bed -MW Level of Assistance 1 Modified Independent -MW Bed Mobility Comments 1 use of bedrails, HOB elevated -MW Transfer Yes -MW Transfer From 1 Sit -MW Transfer Type 1 To and from -MW Transfer to 1 Stand -MW Technique 1 Sit to stand;Stand to sit -MW Transfer Device 1 No device -MW Transfer Level of Assistance 1 Standby Assist -MW Trials/Comments 1 SBA for safety -MW Ambulation Yes -MW Distance (ft) 1 200 -MW Surface 1 Level tile -MW Device 1 No device -MW Assistance 1 Contact Guard Assist -MW Gait: Requires assist with 1 Maintaining balance -MW Gait: Requires verbal cues to 1 Improve upright posture;Increase step length;Pace activity -MW Quality of Gait 1 increased lateral trunk sway, decreased betzaida, decreased step height/length -MW Ambulation Comments 1 Pt reports feeling more unsteady/off balance than his typical walking -MW Stairs No -MW Stair Comments deferred d/t pt reports no stairs in home environment -MW RUE Assessment WFL -MW RUE Overall Strength Other (Comment) animal groomer strength WNL -MW R Shoulder ABduction 5/5 -MW R Elbow Flexion 5/5 -MW R Wrist Flexion 5/5 -MW LUE Assessment WFL -MW LUE Overall Strength Other (Comment) animal groomer strength WNL -MW L Shoulder ABduction 5/5 -MW L Elbow Flexion 5/5 -MW L Wrist Flexion 5/5 -MW RLE Assessment WFL -MW R Hip Flexion 5/5 -MW R Knee Extension 5/5 -MW R Ankle Dorsiflexion 5/5 -MW LLE Assessment WFL -MW L Hip Flexion 5/5 -MW L Knee Extension 5/5 -MW L Ankle Dorsiflexion 5/5 -MW Equipment Use Comments gait belt donned for all OOB mobility -MW Other PT Comments Pt participated well in therapy, was limited by decreased activity tolerance and unsteadiness with gait. Pt states that his daughter would be able to stay with him after discharge from the hospital as needed, and states he is agreeable to using an assistive device initially upon discharge. PT provided education regarding PT POC and activity recommendations while hospitalized, ptverbalizes understanding of all education. -MW How much difficulty does the patient have: Turning over in bed 4 -MW How much difficulty does the patient currently have: Sitting down and standing up from a chair witharms? 3 -MW How much difficulty does the patient have: Moving from lying on back to sitting on the side of the bed? 4 -MW How much difficulty does the patient have: Moving to and from a bed to a chair including wheelchair? 3 -MW How much help does the patient currently need: Walk in hospital room? 3 -MW How much help from another person does the patient currently need: Climbing 3-5 steps with a railing? 3 -MW Total 6 Click Score (range 6-24) 20 -MW Score Interpretation 43.99 -MW Prognosis Good -MW Problem List Gait deviations;Decreased endurance;Impaired balance;Decreased mobility -MW Problem List Comments PT Diagnosis: sudden onset dysarthria and word finding difficulty, with gradual improvement, suspected TIA results in above listed activity deficits and impairments which prevent full participation in home and community mobility -MW Barriers to Discharge Current Mobility Status -MW Plan Plan of care initiated;If this is the last note, consider this the discharge summary -MW PT Recommendation/Plan Home with family;Home with 24 hour supervision;Home Health PT -MW PT Recommendation/Plan Comments Pt agreeable with PT POC. If pt unable to have 24H supervision, recommend SNF. -MW PT Frequency 3-5x/wk -MW Treatment/Interventions Balance Training;Bed mobility;Endurance training;Gait training;Strengthening;Therapeutic activity;Therapeutic exercise;Transfer training -MW PT Equipment Recommended Wheeled walker pending progress -MW PT - OK to Discharge No -MW PT Evaluation Complete Yes -MW User Patel (r) = Recorded By, (t) = Taken By, (c) = Cosigned By Initials Name Effective Dates MW Gypsy Perez, PT 12/20/20 - PT TREATMENT (last 168 hours) PT Treatment No documentation. PT Notes 05/22/2021 12:41 PM Progress Notes signed by Gypsy Perez, PT , PT Eval and Treat Last Documented OT ASSESSMENT FLOWSHEET LAST DOCUMENTED (most recent) PT Evaluation - 05/22/21 1110 Cognition Orientation Oriented X4 (person, place, time, situation) PT TREATMENT (most recent) PT Treatment - 05/22/21 1110 Cognition Orientation Oriented X4 (person, place, time, situation) PT Notes 05/22/2021 12:41 PM Progress Notes signed by Gypsy Perez, PT , Referral Order Details (96h ago through 96h from now) Ordered Start 05/22/21 1503 Ambulatory referral to Home Health Electronically Signed By: Erna Schilling MD Question Answer Comment Service Line Home Health Primary disciplines requested: Correction Primary disciplines requested: Physical Therapy Secondary disciplines requested: Occupational Therapy Home Health Services Therapy to Eval/ Treat Physician to follow patient's care (the person listed here will be responsible for signing ongoing orders): PCP Requested Start of Care Date: Tomorrow I attest that I or another qualified licensed provider saw the patient 90 days prior to or 30 days post admission and this face to face encounter meets the necessary Home Health requirements. The face to face encounter occurred on (date): 05/22/2021 The encounter with the patient was in whole, or in part, for the following medical condition, whichis the primary reason for home health care. (List medical condition): TIA I certify that, based on my findings, the following services are medically necessary skilled home health services: Therapy to Eval/ Treat Clinical findings that support the need for home care: Medical condition requiring skilled assessment/education I certify that my clinical findings support patient's homebound status. Homebound criteria met because: Abnormal gait/unsteady balance resulting in fall risk 05/22/21 0000 05/22/21 1503 Miscellaneous DME Electronically Signed By: Erna Schilling MD Question Answer Comment Name/type: Wheeled Walker The [id number] evaluation was performed on: 05/22/2021 DME services provided by: [facility] 05/22/21 0000 ER LAYER * Significant Event - Russ Mccann MD - 05/22/2021 1:33 PM BINDER LAYER Called to bedside, patient had developed HTN and lightheadedness/dizziness throughout the day. Ca 1245 he was normal, then at 1300 his RN returned to bedside and found patient having difficulty speaking. On my exam, patient had impaired fluency (very effortful, slow speech) but intact naming, repetition, comprehension. His attention was intact and he was able to point out where in the room the strokecards were located. He was complaining of heart beating hard as well. BP elevated to 190s systolic. NIHSS Repeat HCT performed, no evidence of ischemia or hemorrhage on my review. Most likely etiology was a functional disorder, but cannot completely exclude an unusual epilepsy (due to his seizure history) or a very small isolated infarction. MRI brain wo and rEEG ordered. Discussed tPA but we deferred after discussion with patient given mild and rapidly improving symptoms, possible stroke yesterday, and low likelihood that this represents an ischemic event. ER LAYER * Plan of Care - Jasmeet Tello RRT - 05/22/2021 11:39 AM CST Patient's Anoro transitioned to bedside administration after demonstrating ability to perform independently. ER LAYER * ED Procedure Note - Sukhdev Tobar MD - 05/21/2021 7:50 PM BINDER LAYER Associated Order(s): ECG 12 lead Procedure ECG 12 lead Date/Time: 05/21/2021 7:50 PM Performed by: Sukhdev Tobar MD Authorized by: Beatriz Treadwell MD Rate: ECG rate: 94 ECG rate assessment: normal Rhythm: Rhythm: sinus rhythm Ectopy: Ectopy: none QRS: QRS axis: Normal QRS intervals: Normal Conduction: Conduction: normal ST segments: ST segments: Normal T waves: T waves: normal Previous ECG: Previous ECG: Unavailable Interpretation: Interpretation: normal Recommended Follow-up: Recommended follow up: further workup in the ED Sukhdev Tobar MD 05/21/21 1950 ER LAYER documented in this encounter Plan of Treatment Not on file documented as of this encounter Procedures Procedure Name Priority Date/Time Associated Diagnosis Comments [place] CRITICAL CARE ILL/INJURED PATIENT INIT 30-74 MIN Routine 05/24/2021 2:58 PM BINDER LAYER EVENT MONITOR Routine 05/24/2021 2:01 PM BINDER LAYER MRI BRAIN WO CONTRAST IP Routine 05/24/2021 2:18 AM BINDER LAYER EGFR Routine 05/23/2021 8:47 PM B[facility]ER LAYER DIFFERENTIAL AUTO Routine 05/23/2021 8:4 7 PM BINDER LAYER CBC WITH AUTO DIFFERENTIAL Routine 05/23/2021 8:47 PM BINDER LAYER BASIC METABOLIC PANEL Routine 05/23/2021 8:47 PM BINDER LAYER TRANSTHORACIC ECHO (TTE) COMPLETE W DOPPLER/CF W CONTRAST W BUBBLE Pending Discharge 05/23/2021 9:58 AM BINDER LAYER EGFR Routine 05/22/2021 9:21 PM B[facility]ER LAYER DIFFERENTIAL AUTO Routine 05/22/2021 9:2 1 PM BINDER LAYER CBC WITH AUTO DIFFERENTIAL Routine 05/22/2021 9:21 PM B[facility]ER LAYER BASIC METABOLIC PANEL Routine 05/22/2021 9:21 PM BINDER LAYER EEG Routine 05/22/2021 3:[address] STROKE PROTOCOL WO CONTRAST Critical/Life-Th reatening 05/22/2021 1:22 PM BINDER LAYER URINALYSIS AND REFLEX TO MICROSCOPIC AND CULTURE STAT 05/22/2021 3:10 AM BINDER LAYER HEMOGLOBIN A1C STAT 05/22/2021 3:10 AM BINDER LAYER VALPROIC ACID LEVEL, TOTAL STAT 05/22/2021 3:10 AM BINDER LAYER LIPID PANEL STAT 05/22/2021 3:10 AM BINDER LAYER DRUGS OF ABUSE SCREEN, URINE WITH REFLEX CONFIRMATION Routine 05/22/2021 3:06 AM BINDER LAYER CTA HEAD NECK W WO CONTRAST ED 05/22/2021 1:57 AM BINDER LAYER TROPONIN I HIGH-SENSITIVITY 2-HOUR Timed 05/21/2021 9:[address] HEAD WO CONTRAST ED Urgent/IP Urgent 05/21/2021 8:31 PM B[facility]ER LAYER XR CHEST 1 VIEW ED 05/21/2021 8:03 PM B[facility]ER LAYER POCT GLUCOSE DEVICE Routine 05/21/2021 7 :55 PM B[facility]ER L[facility]ER INFLUENZA A/B, RSV, AND COVID-19 PCR Routine 05/21/2021 7:54 PM BINDER LAYER ECG 12-LEAD STAT 05/21/2021 7:50 PM BINDER LAYER TROPONIN I HIGH-SENSITIVITY SERIES (BASELINE, 2HR, 4HR, 6HR) STAT 05/21/2021 7:48 PM BINDER LAYER EGFR STAT 05/21/2021 7:48 PM BINDER LAYER DIFFERENTIAL AUTO STAT 05/21/2021 7:4 8 PM BINDER LAYER THYROID FUNCTION CASCADE STAT 05/21/2021 7:48 PM BINDER LAYER CBC WITH AUTO DIFFERENTIAL STAT 05/21/2021 7:48 PM BINDER LAYER APTT STAT 05/21/2021 7:48 PM BINDER LAYER PROTIME-INR STAT 05/21/2021 7:48 PM BINDER LAYER PHOSPHORUS Routine 05/21/2021 7:48 PM BINDER LAYER MAGNESIUM STAT 05/21/2021 7:48 PM BINDER LAYER VALPROIC ACID LEVEL, TOTAL STAT 05/21/2021 7:48 PM BINDER LAYER CARBAMAZEPINE LEVEL, TOTAL STAT 05/21/2021 7:48 PM BINDER LAYER COMPREHENSIVE METABOLIC PANEL STAT 05/21/2021 7:48 PM BINDER LAYER documented in this encounter Results * [place] CRITICAL CARE ILL/INJURED PATIENT INIT 30-74 MIN (05/24/2021 2:58 PM BINDER LAYER) Narrative Sukhdev Tobar MD - 05/24/2021 2:58 PM BINDER LAYER Sukhdev Tobar MD ? 06/28/2021 ??3:35 PM Critical Care Performed by: Sukhdev Tobar MD Authorized by: Elsa Rowell MD Critical care provider statement: As reflected in the history, physical exam, orders, notes, and/or MDM, I was personally present while the patient was critically ill and provided critical care services for approximately 60 minutes, excluding time involved in separately billable procedures. ??Critical care was necessary to treat or prevent imminent or life-threatening deterioration of the following condition(s): ?? acute cerebrovascular accident (CVA) ??Critical care was time spent by me providing the following: ? continuous telemetry, continuous pulse oximetry and interpretation of bedside monitors, imaging, and arterial/venous lab draws ?? frequent neurologic exams and decision regarding acute lytic therapy ?? I provided emergent necessary critical care medicine services to this patient. I ordered and reviewed test results and/or imaging studies. I spent time discussing the management of this critically ill patient with consultants and the medical staff. I spent time discussing the management and therapeutic options for this critically ill patient with the patient themselves or with the appropriate designated surrogate decision-maker. I spent time documenting in the medical record. I admitted this patient to a continuous cardiac monitored bed. us Elsa Rowell MD IN CLINIC/BEDSIDE ORDERABLES Edited Result - Final * Event Monitor, 30 Day Event (05/24/2021 2:01 PM BINDER LAYER) Anatomical Region Laterality Modality Electrocardiogra phy 05/24/2021 1:25 PM [facility]ER Narrative 06/26/2021 1:59 PM CDT Patient name: Humza Recio Date of test: 05/24/2021 Type of Test: Event Monitor ([facility]) [facility] #: [id number] ?Location: [facility] : 1950 ??Age: 71 ??Sex: M Ref Physician(s): MAYNOR SANTOS MD Interpreted by: Grupo Maldonado MD [employer]: Wanda Cleaning Diagnosis: Monitoring Service: [employer] Reason for Test: R00.2: Palpitations Monitor Used: Body [facility] (MCT) ??[id number] Enrollment Period: May 24 - Jun 22, 2021 [employer] comments: Patient Instructions: Understood directions and use of equipment. Number of Transmissions Sent During Enrollment Period: 2 To obtain transmission tracing contact: Rhythm Summary: Bradycardia avg rate: 58 Bradycardia longest duration: 00:00:58 Bradycardia longest episode: 06/02/2021 08:00:00 Bradycardia shortest duration: 00:00:15 Bradycardia shortest episode: 06/02/2021 08:01:00 Mean heart rate: 76 Pauses >= 3 seconds: 0 Tachycardia avg rate: 109 Tachycardia longest duration: 00:23:17 Tachycardia longest episode: 06/02/2021 15:46:00 Tachycardia shortest duration: 00:00:06 Tachycardia shortest episode: 06/02/2021 15:21:00 Cardiologis Review of Transmissions: I have reviewed the findings on the individual tracings for the dates noted below and I agree., The full scanned/data report is available in Right Hemisphere. labeled MONITOR STRIPS PDF . This study was interpreted by Grupo Maldonado MD Confirmed on ??06/26/2021 - 13:59:27 by Grupo Maldonado MD Summary of Transmitted Events: # ??Date ? Time ?HR ?Symptoms/Rhythm ? 2 ??05/28/21 10:09 ?? 90.0 ?None Reported ? Sinus Rhythm, Sinus Tachycardia w/Artifact/Lead Loss ?? 1 ??05/24/21 13:54 ?? 77.7 ?Baseline ??Auto Trigger ? Sinus Rhythm w/Artifact ? I have personally reviewed and interpreted this study. Procedure Note Grupo Maldonado Jr., MD PhD - 06/26/2021 Patient name: Humza Recio Date of test: 05/24/2021 Type of Test: Event Monitor (SHO) [facility] #: [id number] Location: [facility] : 1950 Age: 71 Sex: M Ref Physician(s): MAYNOR SANTOS MD Interpreted by: Grupo Maldonado MD [employer]: Wanda Cleaning Diagnosis: Monitoring Service: [employer] Reason for Test: R00.2: Palpitations Monitor Used: Body [employer] [facility] #2[facility] Heart ([facility]) [id number] Enrollment Period: May 24 - Jun 22, 2021 [employer] comments: Patient Instructions: Understood directions and use of equipment. Number of Transmissions Sent During Enrollment Period: 2 To obtain transmission tracing contact: Rhythm Summary: Bradycardia avg rate: 58 Bradycardia longest duration: 00:00:58 Bradycardia longest episode: 06/02/2021 08:00:00 Bradycardia shortest duration: 00:00:15 Bradycardia shortest episode: 06/02/2021 08:01:00 Mean heart rate: 76 Pauses >= 3 seconds: 0 Tachycardia avg rate: 109 Tachycardia longest duration: 00:23:17 Tachycardia longest episode: 06/02/2021 15:46:00 Tachycardia shortest duration: 00:00:06 Tachycardia shortest episode: 06/02/2021 15:21:00 Cardiologis Review of Transmissions: I have reviewed the findings on the individual tracings for the dates noted below and I agree., The full scanned/data report is available in [employer]. labeled MONITOR STRIPS PDF . This study was interpreted by Grupo Maldonado MD Confirmed on 06/26/2021 - 13:59:27 by Grupo Maldonado MD Summary of Transmitted Events: # Date Time HR Symptoms/Rhythm 2 05/28/21 10:09 90.0 None Reported Sinus Rhythm, Sinus Tachycardia w/Artifact/Lead Loss 1 05/24/21 13:54 77.7 Baseline Auto Trigger Sinus Rhythm w/Artifact I have personally reviewed and interpreted this study. us Maynor Santos NP CV CARDIAC SERVICES PROC EDURES Final Result * MRI Brain WO Contrast (05/24/2021 2:18 AM [facility]ER [facility]ER) Anatomical Region Laterality Modality Head and Neck N/A Magnetic Resonan ce 05/24/2021 10:4 2 AM [facility]ER Impressions 05/24/2021 2:13 PM [facility]ER 1. No acute intracranial abnormality. Dictated by: Benji Garcia M.D. The radiology attending physician has personally reviewed this study, and had reviewed and/or edited this written report and agrees with it. Electronically signed by: Beth Ye M.D. Narrative 05/24/2021 2:13 PM [facility]ER EXAMINATION: Magnetic resonance imaging (MRI) of the brain and brainstem without contrast HISTORY: 71-year-old with acute neuro deficit. Dizziness, difficulty speaking. TECHNIQUE: Multiplanar multi-weighted MRI of the brain and brainstem was performed without intravenous contrast using the general brain protocol. 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 The superior sagittal sinus demonstrates normal venous flow. ??The corpus callosum is normal in shape and signal intensity. ??The posterior fossa is unremarkable. ??The pituitary and sella are normal. ??The brainstem and craniocervical junction are unremarkable. Diffusion weighted images reveal no hyperintensities to suggest acute cerebral infarction. ??There is a punctate focus of susceptibility in the right putamen, likely representing a microhemorrhage. ??The ventricles are normal in size and position without evidence of hydrocephalus . Mucus retention cysts are noted in the maxillary sinus. Trace ethmoid mucosal thickening. ??The visualized portions of the mastoids are unremarkable. ??The orbits appear normal. ??Normal flow voids are demonstrated in the carotid arteries and basilar artery. Procedure Note Beth Ye MD - 05/24/2021 EXAMINATION: Magnetic resonance imaging (MRI) of the brain and brainstem without contrast HISTORY: 71-year-old with acute neuro deficit. Dizziness, difficulty speaking. TECHNIQUE: Multiplanar multi-weighted MRI of the brain and brainstem was performed without intravenous contrast using the general brain protocol. 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 The superior sagittal sinus demonstrates normal venous flow. The corpus callosum is normal in shape and signal intensity. The posterior fossa is unremarkable. The pituitary and sella are normal. The brainstem and craniocervical junction are unremarkable. Diffusion weighted images reveal no hyperintensities to suggest acute cerebral infarction. There is a punctate focus of susceptibility in the right putamen, likely representing a microhemorrhage. The ventricles are normal in size and position without evidence of hydrocephalus . Mucus retention cysts are noted in the maxillary sinus. Trace ethmoid mucosal thickening. The visualized portions of the mastoids are unremarkable. The orbits appear normal. Normal flow voids are demonstrated in the carotid arteries and basilar artery. IMPRESSION: 1. No acute intracranial abnormality. Dictated by: Benji Garcia M.D. The radiology attending physician has personally reviewed this study, and had reviewed and/or edited this written report and agrees with it. Electronically signed by: Beth Ye M.D. us Erna Schilling MD IMG MRI PROCEDURES Final R esult * eGFR (05/23/2021 8:47 PM [facility]ER [facility]ER) Pathologist [facility] eGFR >90 90 - 130 mL/min/1. 73 m2 [facility] Comment: Interpretive Data Reference Interval Normal ?>/= 90 mL/min/1.73m2 Mildly decreased* ? 60 - 89 mL/min/1.73m2 Mildly to moderately decreased ?45 - 59 mL/min/1.73m2 Moderately to severely decreased ??30 - 44 mL/min/1.73m2 Severely decreased ?15 - 29 mL/min/1.73m2 Kidney Failure ?< 15 ??mL/min/1.73m2 *Relative to young adult level Estimated glomerular filtration rate is determined by the 2020 CKD-EPI equation recommended by the National Kidney Foundation (A Unifying Approach to GFR Estimation: Recommendations of the NKF-ASK Task Force on Reassessing the Inclusion of Race in Diagnosing Kidney Disease, JASN 2020). The CKD-EPI equation should not be used for patients with unstable renal function and has not been validated in children and those over 70. Current interpretive data was last reviewed 2021. Blood 05/23/2021 8:47 PM [facility] 05/23/2021 9:21 PM [facility]ER us Erna Schilling MD LAB BLOOD ORDERABLES Final Result [facility] Department [place] [address] * Differential, auto (05/23/2021 8:47 PM [facility]ER) Pathologist [facility] Neutrophil abs 3.3 1.7 - 6.5 K/cumm [facility] Imm gran abs 0.0 0.0 - 0.1 K/cumm [facility] Lymphocyte abs 2.6 0.8 - 3.3 K/cumm [facility] Monocyte abs 0.5 0.2 - 0.8 K/cumm [facility] Eosinophil abs 0.2 0.0 - 0.5 K/cumm [facility] Basophil abs 0.1 0.0 - 0.1 K/cumm [facility] Neutrophil pct 49.3 % [facility] Comment: Interpretive Data Percent cell count reference ranges are not reported, since discordance with absolute values may lead to misinterpretation of CBC data. Current Interpretive Data was last revised on 2017. Imm gran pct 0.5 % [facility] Comment: Interpretive Data Percent cell count reference ranges are not reported, since discordance with absolute values may lead to misinterpretation of CBC data. Current Interpretive Data was last revised on 2017. Lymphocyte pct 39.0 % [facility] Comment: Interpretive Data Percent cell count reference ranges are not reported, since discordance with absolute values may lead to misinterpretation of CBC data. Current Interpretive Data was last revised on 2017. Monocyte pct 7.1 % [facility] Comment: Interpretive Data Percent cell count reference ranges are not reported, since discordance with absolute values may lead to misinterpretation of CBC data. Current Interpretive Data was last revised on 2017. Eosinophil pct 3.3 % [facility] Comment: Interpretive Data Percent cell count reference ranges are not reported, since discordance with absolute values may lead to misinterpretation of CBC data. Current Interpretive Data was last revised on 2017. Basophil pct 0.8 % [facility] Comment: Interpretive Data Percent cell count reference ranges are not reported, since discordance with absolute values may lead to misinterpretation of CBC data. Current Interpretive Data was last revised on 2017. Blood 05/23/2021 8:47 PM [facility]ER 05/23/2021 9:21 PM [facility]ER us Erna Schilling MD LAB BLOOD ORDERABLES Final Result [facility] Department [place] [address] * Basic metabolic panel (05/23/2021 8:47 PM [facility]ER) Sodium 143 135 - 145 mmol/L [facility] Potassium, pl 3.5 3.3 - 4.9 mmol/L [facility] Chloride 106 97 - 110 mmol/L [facility] CO2 30 22 - 32 mmol/L [facility] Anion gap 7 2 - 15 mmol/L [facility] BUN 16 8 - 25 mg/dL [facility] Creatinine 0.88 0.80 - 1.30 mg/dL [facility] Glucose 118 70 - 199 mg/dL [facility] Comment: Interpretive Data Fasting glucose >/= 126 mg/dl is diagnostic for diabetes. ?? Fasting is defined as no caloric intake for at least 8 hours. Fasting glucose between 100 mg/dl to 125 mg/dl is diagnostic of prediabetes. In a patient with classic symptoms of hyperglycemia or hyperglycemic crisis, a random glucose >/= 200 mg/dl is diagnostic for diabetes. In the absence of unequivocal hyperglycemia, results should be confirmed by repeat testing. The classification and Diagnosis of Diabetes Diabetes Care 2017;40 (Suppl. 1):S11. Current interpretive data was last revised 2017. Calcium 8.7 8.5 - 10.3 mg/dL [facility] Blood 05/23/2021 8:47 PM [facility]ER 05/23/2021 9:21 PM [facility]ER us Erna Schilling MD LAB BLOOD ORDERABLES Final Result [facility] Department [place] [address] * CBC with auto differential (05/23/2021 8:47 PM [facility]ER) WBC 6.6 3.8 - 9.9 K/cumm [facility] Hgb 13.6 13.0 - 17.5 g/dL [facility] Hct 39.3 38.9 - 50.3 % [facility] Plt 195 150 - 400 K/cumm [facility] MPV 10.5 9.1 - 12.3 fL [facility] RBC 4.45 4.30 - 5.80 M/cumm [facility] MCV 88.3 81.3 - 96.4 fL [facility] MCH 30.6 27.1 - 33.3 pg [facility] MCHC 34.6 32.3 - 35.7 g/dL [facility] RDW CV 11.9 11.1 - 14.9 % [facility] RDW SD 37.9 35.7 - 48.1 fL [facility] NRBC abs 0.00 0.00 - 0.01 K/cumm [facility] Blood 05/23/2021 8:47 PM [facility]ER 05/23/2021 9:21 PM [facility]ER us Erna Schilling MD LAB BLOOD ORDERABLES Final Result [facility] Department [place] [address] * TRANSTHORACIC ECHO (TTE) COMPLETE W DOPPLER/CF W CONTRAST W BUBBLE (05/23/2021 9:58 AM [facility]ER [facility]ER) Anatomical Region Laterality Modality Ultrasound 05/23/2021 8:05 AM [facility]ER Narrative 05/23/2021 10:29 AM [facility]ER Patient name: Humza Recio Date of test: 05/23/2021 Type of test: TTE w/Doppler [facility] #: [id number] Date of : 1950 (M) Statistician Applied: Mayur Acevedo RDCS Referring Physician: ERNA SCHILLING MD Contrast Agent: 1.5 ml. Optison Admin., (1.5 ml Wasted) and NS Bubble Study Contrast Administered by: Elizabeth Villafuerte RN Supervised/Interpreted by: Walter Grande MD Diagnosis: Location: [facility] Reason for test: eval for KRISTIE, PFO, structural abnormalities MV Structure: Normal, ?MV Motion: Normal, ?? Mitral Annulus: Normal AV Structure: tricuspid and is mildly thickened, ?? AV Motion: Normal Aotic root: Normal, ?TM: Normal, ?? PV: Normal Valvular Vegetations: none seen, ?Mass/Thrombi: none seen RA: Normal Measurements: ?M-Mode ?Normal ? Aotic Root: ? <3.8 ? LA: ? <4.0 ? RV: ? <2.8 ? LV(ED): ? <5.7 ? LV(ES): ? Variable ?2D Linear Normal ? Aotic Root: 4.2 cm ?<4.0 ? Ao Indexed: 1.9 cm/M2 <2.0 ? LA: ? <4.0 ? RV: ? 4.1 cm ?<4.2 ? LV(ED): ? 4.4 cm ?<5.9 ? LV(ES): ? 2.5 cm ?<4.0 ?2D Vol. ?? Normal ?Indexed ?? Indexed Normal RA: ? 39.0 ml ? 17.8 ml/M2 ?11-39 ? LA: ? 36.0 ml ? 16.4 ml/M2 ?16-34 ? RV: ? <12.7 ? LV(ED): ? 97.0 ml ?? 62-150 ?44.2 ml/M2 ?<75 ? LV(ES): ? 21.0 ml ?? 21-61 ? 9.6 ml/M2 ? <32 ?3D Vol. ? Indexed Normal LV(ED): ?<75 ? LV(ES): ?<32 ? LV EF: 78 % ?? (Normal: >=52%) ?? LV Septum: 1.4 cm ?(Normal: <1.0 cm) Wall Motion Scoring (1=Normal 2=Hypo 3=Akinetic 4=Dyskin./Aneurysm 0=Not visualized) Parasternal Long [place]:MAS=1 BAS=1 MIL=1 CARLO=1 Parasternal Short [place]:MAS=1 MIS=1 CA=1 MIL=1 MAL=1 MA=1 Apical 4 Chambers:=1 MIS=1 BIS=1 BAL=1 MAL=1 AL=1 AC=1 Apical 2 Chambers:AI=1 CA=1 BI=1 BA=1 MA=1 AA=1 AC=1 LV Global Longitudinal Strain: -15.1% ??(Normal <-17%) RV Global Longitudinal Strain: -21.2% ??(Normal <-17%) LV Function: Hyperdynamic LV Ejection Fraction (EF>73%) RV Function: Normal Septal Motion: Normal Pericardial Effusion: none seen Atrial Septum: Normal DOPPLER/COLOR FLOW DOPPLER RESULTS: Diastolic Function: Normal Tricuspid Valve: normal TV Pulmonic Valve: normal PV AV Regurgitation: No AR seen AV Stenosis: no AV Area: ??cm2 AV Pressure Gradient (mmHg): Mean: 0, Peak:0 MV Regurgitation: No MR seen MV Stenosis: no MS MV Area: ??cm2 MV Pressure Gradient (mmHg): Mean: 0 MV ERO: ??cm Regurg. Vol.: ??ml/beat Regurg. Frac.: ??% PA Pressure: ??mmHg DOPPLER/COLOR FOLOW DOPPLER COMMENTS: No AR seen, No MR seen, no , no MS, normal TV, normal PV. Diastolic function: Normal CONTRAST: 1.5 ml. Optison Admin., (1.5 ml Wasted) and NS Bubble Study SUMMARY: LA is normal. Normal RV cavity size and function. LV cavity size is normal. Mild concentric LV hypertrophy and hyperdynamic EF=78% with reduced strain. Normal Inferior vena cava. negative saline bubble study. Normal aorta. No previous study Confirmed on ??05/23/2021 - 10:29:26 by Walter Grande MD By signing this report, the attending order entry certifies that he or she has personally supervised and interpreted the echocardiogram and has reviewed and or edited and agrees with the written comments contained within the report. Procedure Note Walter Grande MD - 05/23/2021 Patient name: Humza Recio Date of test: 05/23/2021 Type of test: [facility] #: [id number] Date of : 1950 (M) Statistician Applied: Mayur Acevedo RDCS Referring Physician: ERNA SCHILLING MD Contrast Agent: 1.5 ml. Optison Admin., (1.5 ml Wasted) and NS Bubble Study Contrast Administered by: Elizabeth Villafuerte RN Supervised/Interpreted by: Walter Grande MD Diagnosis: Location: [facility] Reason for test: eval for KRISTIE, PFO, structural abnormalities MV Structure: Normal, MV Motion: Normal, Mitral Annulus: Normal AV Structure: tricuspid and is mildly thickened, AV Motion: Normal Aotic root: Normal, TM: Normal, PV: Normal Valvular Vegetations: none seen, Mass/Thrombi: none seen RA: Normal Measurements: M-Mode Normal Aotic Root: <3.8 LA: <4.0 RV: <2.8 LV(ED): <5.7 LV(ES): Variable 2D Linear Normal Aotic Root: 4.2 cm <4.0 Ao Indexed: 1.9 cm/M2 <2.0 LA: <4.0 RV: 4.1 cm <4.2 LV(ED): 4.4 cm <5.9 LV(ES): 2.5 cm <4.0 2D Vol. Normal Indexed Indexed Normal RA: 39.0 ml 17.8 ml/M2 11-39 LA: 36.0 ml 16.4 ml/M2 16-34 RV: <12.7 LV(ED): 97.0 ml 62-150 44.2 ml/M2 <75 LV(ES): 21.0 ml 21-61 9.6 ml/M2 <32 3D Vol. Indexed Normal LV(ED): <75 LV(ES): <32 LV EF: 78 % (Normal: >=52%) LV Septum: 1.4 cm (Normal: <1.0 cm) Wall Motion Scoring (1=Normal 2=Hypo 3=Akinetic 4=Dyskin./Aneurysm 0=Not visualized) Parasternal Long [place]:MAS=1 BAS=1 MIL=1 CARLO=1 Parasternal Short [place]:MAS=1 MIS=1 CA=1 MIL=1 MAL=1 MA=1 Apical 4 Chambers:=1 MIS=1 BIS=1 BAL=1 MAL=1 AL=1 AC=1 Apical 2 Chambers:AI=1 CA=1 BI=1 BA=1 MA=1 AA=1 AC=1 LV Global Longitudinal Strain: -15.1% (Normal <-17%) RV Global Longitudinal Strain: -21.2% (Normal <-17%) LV Function: Hyperdynamic LV Ejection Fraction (EF>73%) RV Function: Normal Septal Motion: Normal Pericardial Effusion: none seen Atrial Septum: Normal DOPPLER/COLOR FLOW DOPPLER RESULTS: Diastolic Function: Normal Tricuspid Valve: normal TV Pulmonic Valve: normal PV AV Regurgitation: No AR seen AV Stenosis: no AV Area: cm2 AV Pressure Gradient (mmHg): Mean: 0, Peak:0 MV Regurgitation: No MR seen MV Stenosis: no MS MV Area: cm2 MV Pressure Gradient (mmHg): Mean: 0 MV ERO: cm Regurg. Vol.: ml/beat Regurg. Frac.: % PA Pressure: mmHg DOPPLER/COLOR FOLOW DOPPLER COMMENTS: No AR seen, No MR seen, no , no MS, normal TV, normal PV. Diastolic function: Normal CONTRAST: 1.5 ml. Optison Admin., (1.5 ml Wasted) and NS Bubble Study SUMMARY: LA is normal. Normal RV cavity size and function. LV cavity size is normal. Mild concentric LV hypertrophy and hyperdynamic EF=78% with reduced strain. Normal Inferior vena cava. negative saline bubble study. Normal aorta. No previous study Confirmed on 05/23/2021 - 10:29:26 by Walter Grande MD By signing this report, the attending order entry certifies that he or she has personally supervised and interpreted the echocardiogram and has reviewed and or edited and agrees with the written comments contained within the report. us Erna Schilling MD CV ECHO PROCEDURES Final R esult * eGFR (05/22/2021 9:21 PM [facility]) eGFR >90 90 - 130 mL/min/1. 73 m2 [facility] Comment: Interpretive Data Reference Interval Normal ?>/= 90 mL/min/1.73m2 Mildly decreased* ? 60 - 89 mL/min/1.73m2 Mildly to moderately decreased ?45 - 59 mL/min/1.73m2 Moderately to severely decreased ??30 - 44 mL/min/1.73m2 Severely decreased ?15 - 29 mL/min/1.73m2 Kidney Failure ?< 15 ??mL/min/1.73m2 *Relative to young adult level Estimated glomerular filtration rate is determined by the 2020 CKD-EPI equation recommended by the National Kidney Foundation (A Unifying Approach to GFR Estimation: Recommendations of the NKF-ASK Task Force on Reassessing the Inclusion of Race in Diagnosing Kidney Disease, JASN 2020). The CKD-EPI equation should not be used for patients with unstable renal function and has not been validated in children and those over 70. Current interpretive data was last reviewed 2021. Blood 05/22/2021 9:21 PM [facility] 05/22/2021 9:48 PM [facility] [employer]ER us Erna Schilling MD LAB BLOOD ORDERABLES Final Result [facility] [place] [address] * Differential, auto (05/22/2021 9:21 PM [facility]) Neutrophil abs 3.2 1.7 - 6.5 K/cumm [facility] Imm gran abs 0.0 0.0 - 0.1 K/cumm [facility] Lymphocyte abs 2.5 0.8 - 3.3 K/cumm [facility] Monocyte abs 0.5 0.2 - 0.8 K/cumm [facility] Eosinophil abs 0.2 0.0 - 0.5 K/cumm [facility] Basophil abs 0.0 0.0 - 0.1 K/cumm [facility] Neutrophil pct 49.6 % [facility] Comment: Interpretive Data Percent cell count reference ranges are not reported, since discordance with absolute values may lead to misinterpretation of CBC data. Current Interpretive Data was last revised on 2017. Imm gran pct 0.3 % [facility] Comment: Interpretive Data Percent cell count reference ranges are not reported, since discordance with absolute values may lead to misinterpretation of CBC data. Current Interpretive Data was last revised on 2017. Lymphocyte pct 38.6 % [facility] Comment: Interpretive Data Percent cell count reference ranges are not reported, since discordance with absolute values may lead to misinterpretation of CBC data. Current Interpretive Data was last revised on 2017. Monocyte pct 7.1 % [facility] Comment: Interpretive Data Percent cell count reference ranges are not reported, since discordance with absolute values may lead to misinterpretation of CBC data. Current Interpretive Data was last revised on 2017. Eosinophil pct 3.8 % [facility] Comment: Interpretive Data Percent cell count reference ranges are not reported, since discordance with absolute values may lead to misinterpretation of CBC data. Current Interpretive Data was last revised on 2017. Basophil pct 0.6 % [facility] Comment: Interpretive Data Percent cell count reference ranges are not reported, since discordance with absolute values may lead to misinterpretation of CBC data. Current Interpretive Data was last revised on 2017. Blood 05/22/2021 9:21 PM BINDER LAYER 05/22/2021 9:48 PM BINDER LAYER us Erna Schilling MD LAB BLOOD ORDERABLES Final Result [facility] [place] [address] * Basic metabolic panel (05/22/2021 9:21 PM BINDER LAYER) Pathologist [facility] Sodium 144 135 - 145 mmol/L [facility] Potassium, pl 3.5 3.3 - 4.9 mmol/L [facility] Chloride 107 97 - 110 mmol/L [facility] CO2 29 22 - 32 mmol/L [facility] Anion gap 8 2 - 15 mmol/L [facility] BUN 15 8 - 25 mg/dL [facility] Creatinine 0.84 0.80 - 1.30 mg/dL [facility] Glucose 139 70 - 199 mg/dL [facility] Comment: Interpretive Data Fasting glucose >/= 126 mg/dl is diagnostic for diabetes. ?? Fasting is defined as no caloric intake for at least 8 hours. Fasting glucose between 100 mg/dl to 125 mg/dl is diagnostic of prediabetes. In a patient with classic symptoms of hyperglycemia or hyperglycemic crisis, a random glucose >/= 200 mg/dl is diagnostic for diabetes. In the absence of unequivocal hyperglycemia, results should be confirmed by repeat testing. The classification and Diagnosis of Diabetes Diabetes Care 2017;40 (Suppl. 1):S11. Current interpretive data was last revised 2017. Calcium 8.6 8.5 - 10.3 mg/dL [facility] Blood 05/22/2021 9:21 PM BINDER LAYER 05/22/2021 9:48 PM BINDER LAYER us Erna Schilling MD LAB BLOOD ORDERABLES Final Result [facility] Department [place] [address] * (ABNORMAL) CBC with auto differential (05/22/2021 9:21 PM BINDER LAYER) Pathologist [facility] WBC 6.4 3.8 - 9.9 K/cumm [facility] Hgb 13.5 13.0 - 17.5 g/dL [facility] Hct 38.8(L) 38.9 - 50.3 % [facility] Plt 194 150 - 400 K/cumm [facility] MPV 10.6 9.1 - 12.3 fL [facility] RBC 4.45 4.30 - 5.80 M/cumm [facility] MCV 87.2 81.3 - 96.4 fL [facility] MCH 30.3 27.1 - 33.3 pg [facility] MCHC 34.8 32.3 - 35.7 g/dL [facility] RDW CV 11.8 11.1 - 14.9 % [facility] RDW SD 37.8 35.7 - 48.1 fL [facility] NRBC abs 0.00 0.00 - 0.01 K/cumm [facility] Blood 05/22/2021 9:21 PM BINDER LAYER 05/22/2021 9:48 PM BINDER LAYER us Erna Schilling MD LAB BLOOD ORDERABLES Final Result Performing Organization Address City/State/[facility] Co de Phone Number [facility] [place] [address] * EEG (05/22/2021 3:43 PM BINDER LAYER) Anatomical Region Laterality Modality EEG Narrative 05/22/2021 6:32 PM BINDER LAYER Routine EEG Report Patient Name: Humza Recio [facility] Medical Record Number (MRN): [id number] Annemarie Arredondo Record: [id number] Date of (): 1950 EEG Date: 05/22/2021 Ordering Provider: Russ Mccann MD CC: Annabelle Donald Start Time: 05/22/2021 2:59:52 PM ? End Time: ??05/22/2021 3:21:31 PM Introduction: Mr. Recio is a 71 y.o. 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 EEG was performed to evaluate for seizures. This is a 32 channel EEG recording acquired on a [employer] EEG-1200 acquisition system. Scalp electrodes were placed according to the international 10-20 System. The analog EEG was filtered from 1-70 Hz and digitally sampled at 200 Hz. The record was then reformatted for review in bipolar and referential montages. EEG Description: There was a poorly formed and modulated 9-10 Hz posterior rhythm. The background also includedf bilateral, diffuse, asynchronous admixed theta and delta range activity. The record showed variability. Hyperventilation was not performed. Photic strobe stimulation elicited no abnormalities. There were no focal, lateralized or epileptiform abnormalities. Interpretation: The EEG was abnormal due to mild generalized slowing. Generalized slowing indicates diffuse cerebral dysfunction as seen in metabolic, toxic, or diffuse or multifocal structural abnormalities. By signing this report, the attending Electroencephalographer certifies that he/she personally reviewed the electrodiagnostics study and has edited this report to fully conform with his/her intent. Signing Attending: Nate Roy MD PhD us Erna Schilling MD NEUROLOGY ORDERABLES Final Result * CT Stroke Head WO Contrast (05/22/2021 1:22 PM BINDER LAYER) Anatomical Region Laterality Modality Head N/A Computed Tomogra phy 05/22/2021 1:45 PM BINDER LAYER Impressions 05/22/2021 1:[address] evidence of acute large territory infarct or acute intracranial hemorrhage. Dictated by: Giovani Gates MD The radiology attending physician has personally reviewed this study, and had reviewed and/or edited this written report and agrees with it. Electronically signed by: Tong Field M.D. Narrative 05/22/2021 1:48 PM BINDER LAYER EXAMINATION: Computed tomography (CT) of the head without contrast HISTORY: Stroke, follow up. Dysarthria. TECHNIQUE: CT of the head was performed without contrast according to standard protocol. COMPARISON: CTA head and neck same-day. CT head August 23, 2020. FINDINGS: There is no acute intracranial hemorrhage. The ventricles are normal in size and position without evidence of hydrocephalus. No mass effect or midline shift is present. The vazquez-white matter differentiation is normal. Minimal supratentorial white matter hypoattenuation is indicative of chronic small vessel ischemic disease. There is vascular calcification of the carotid siphons. The orbits appear normal. The mastoids appear normal. Mild ethmoidal sinus mucosal thickening and right maxillary sinus mucous retention cyst or polyp. 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 No fractures are identified. Procedure Note Tong Field MD - 05/22/2021 EXAMINATION: Computed tomography (CT) of the head without contrast HISTORY: Stroke, follow up. Dysarthria. TECHNIQUE: CT of the head was performed without contrast according to standard protocol. COMPARISON: CTA head and neck same-day. CT head August 23, 2020. FINDINGS: There is no acute intracranial hemorrhage. The ventricles are normal in size and position without evidence of hydrocephalus. No mass effect or midline shift is present. The vazquez-white matter differentiation is normal. Minimal supratentorial white matter hypoattenuation is indicative of chronic small vessel ischemic disease. There is vascular calcification of the carotid siphons. The orbits appear normal. The mastoids appear normal. Mild ethmoidal sinus mucosal thickening and right maxillary sinus mucous retention cyst or polyp. 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 No fractures are identified. IMPRESSION: No CT evidence of acute large territory infarct or acute intracranial hemorrhage. Dictated by: Giovani Gates MD The radiology attending physician has personally reviewed this study, and had reviewed and/or edited this written report and agrees with it. Electronically signed by: Tong Field M.D. us Erna Schilling MD [facility] [place] CT PROCEDURES Final Re sult * (ABNORMAL) Lipid panel (05/22/2021 3:10 AM BINDER LAYER) Pathologist [facility] Cholesterol 162 30 - 199 mg/dL [facility] Comment: Interpretive Data Ages < or = 19 years ??Acceptable: ? <170 mg/dL ??Borderline high: ??170-199 mg/dL ??High: ? >or= 200 mg/dL Ages > or = 20 years ??Desirable: ?<200 mg/dL ??Borderline high: ??200-239 mg/dL ??High: ? >or= 240 mg/dL Literature References: 1. Expert Panel on Integrated Guidelines for Cardiovascular Health and Risk Reduction in Children and Adolescents. Pediatrics 2011;128:S213 2. NCEP Expert Panel. Circulation 2004;110:227 Current Interpretive Data was last revised on 2017. Triglycerides 311(H) <=149 mg/dL [facility] Comment: Interpretive Data Ages < or = 9 years ??Acceptable: ? <75 mg/dL ??Borderline high: ??75-99 mg/dL ??High: ? >or= 100 mg/dL Ages 10 to 20 years ??Acceptable: ? <90 mg/dL ??Borderline high: ??90-129 mg/dL ??High: ? >or= 130 mg/dL Ages > or = 20 years ??Desirable: ?<150 mg/dL ??Borderline high: ??150-199 mg/dL ??High: ? 200-499 mg/dL ?Very high: ?? >or= 499 mg/dL Literature References: 1. Expert Panel on Integrated Guidelines for Cardiovascular Health and Risk Reduction in Children and Adolescents. Pediatrics 2011;128:S213 2. NCEP Expert Panel. Circulation 2004;110:227 Current Interpretive Data was last revised on 2017. HDL 36(L) >=40 mg/dL [facility] Comment: Interpretive Data Ages < or = 19 years ??Acceptable: ? >45 mg/dL ??Borderline low: ?? 40-45 mg/dL ??Low: ? <40 mg/dL Ages > or = 20 years ??Desirable: ?>or= 60 mg/dL ??Low: ? <40 mg/dL Literature References: 1. Expert Panel on Integrated Guidelines for Cardiovascular Health and Risk Reduction in Children and Adolescents. Pediatrics 2011;128:S213 2. NCEP Expert Panel. Circulation 2004;110:227 Current Interpretive Data was last revised on 2017. LDL, calculated 64 <=129 mg/dL [facility] Comment: Interpretive Data Ages < or = 19 years ??Acceptable: ? <110 mg/dL ??Borderline high: ??110-129 mg/dL ??High: ?>or= 130 mg/dL Ages > or = 20 years ??Optimal: ? <100 mg/dL ??Near optimal: ?100-129 mg/dL ??Borderline high: ?? 130-159 mg/dL ??High: ?>160 mg/dL Literature References: 1. Expert Panel on Integrated Guidelines for Cardiovascular Health and Risk Reduction in Children and Adolescents. Pediatrics 2011;128:S213 2. NCEP Expert Panel. Circulation 2004;110:227 Current Interpretive Data was last revised on 2017. Non-HDL Cholesterol 126 mg/dL [facility] Comment: Interpretive Data Ages < or = 19 years ??Acceptable: ?<120 mg/dL ??Borderline high: ??120-144 mg/dL ??High: ?>145 mg/dL Ages > or = 20 years ??When triglycerides are >200 mg/dL, Non-HDL cholesterol is a secondary target of ? therapy with treatment goals that are 30 mg/dL greater than the LDL cholesterol target. ? Literature References: 1. Expert Panel on Integrated Guidelines for Cardiovascular Health and Risk Reduction in Children and Adolescents. Pediatrics 2011;128:S213 2. NCEP Expert Panel. Circulation 2004;110:227 Current Interpretive Data was last revised on 2017. Chol/HDL ratio 5 [facility] Blood 05/22/2021 3:10 AM BINDER LAYER 05/22/2021 4:55 AM BINDER LAYER us Erna Schilling MD LAB BLOOD ORDERABLES Final Result [facility] [place] [address] * (ABNORMAL) Urinalysis reflex to microscopic and culture Urine, clean voided (05/22/2021 3:10 AM BINDER LAYER) Color, ur Yellow Yellow [facility] Clarity, ur Clear Clear [facility] Specific gravity, ur >1.042(H) 1.003 - 1.030 [facility] pH, urine 6.5 [facility] Protein, ur ql Trace Negative [facility] Glucose, ur ql Negative Negative [facility] Ketones, ur Negative Negative [facility] Bilirubin, ur Negative Negative [facility] Blood, ur Negative Negative [facility] Urobilinogen, ur 2.0(A) <2.0 mg/dL [facility] Nitrite, ur Negative Negative [facility] Leukocyte esterase, ur Negative Negative [facility] UA reflex comment Reflex conditions for microscopic UA and culture not met. [facility] Urine, clean voided 05/22/2021 3:10 AM BINDER LAYER 05/22/2021 5:26 AM BINDER LAYER Narrative [facility] - 05/22/2021 6:02 AM BINDER LAYER ?? Urine pH is affected by diet, medications, systemic acid-base disturbances, and renal tubular function. ??pH may affect urinary stone formation. ??For example, urine pH below 6.0 may help reduce the tendency for calcium phosphate stones and pH greater than 6.0 may reduce the tendency for uric acid stone formation. Source: [facility] [employer]. Last revised 04-04-2017 us Erna Schilling MD LAB MICROBIOLOGY - GENERAL ORDERABLES Final Result [facility] Department [place] [address] * (ABNORMAL) Hemoglobin A1c (05/22/2021 3:10 AM BINDER LAYER) Hgb A1C 5.8(H) 4.0 - 5.6 % [facility] Estimated Average Glucose 120 mg/dL [facility] Comment: The ADA recommends reporting an estimated Average Glucose (eAG) with all Hemoglobin A1c results using the equation derived from a study of 507 normal and diabetic adults. ??Minority populations were underrepresented and children were not included. ?? (Diabetes Care 2020; 43(S1): S66-S76). ??The eAG is not equivalent to a fasting glucose. Blood 05/22/2021 3:10 AM BINDER LAYER 05/22/2021 4:52 AM BINDER LAYER us Erna Schilling MD LAB BLOOD ORDERABLES Final Result Performing Organization Address [facility] de Phone Number [facility] Department [place] [address] * (ABNORMAL) Valproic acid level, total (05/22/2021 3:10 AM BINDER LAYER) Valproic Acid 16.0(L) 50.0 - 100.0 mcg/mL [facility] Comment: Interpretive Data Therapeutic or toxic effects of anticonvulsant drugs may occur at different concentrations in different patients and the correlation between dose and clinical effect must be evaluated individually. Current interpretative data was last revised on 13. Blood 05/22/2021 3:10 AM BINDER LAYER 05/22/2021 4:55 AM BINDER LAYER us Sukhdev Chaudhary MD LAB BLOOD ORDERABLES Final R esult Performing Organization Address [facility] de Phone Number [facility] Department [place] [address] * Drugs of Abuse Screen, Urine with Reflex Confirmation (05/22/2021 3:06 AM BINDER LAYER) Amphetamine, ur Not Detected CutOff 500ng/mL [facility] Comment: Interpretive Data - Amphetamines: ??Samples containing greater than 500 ng/mL d-methamphetamine ??or other cross-reacting amphetamine compounds are reported as positive. ??Amphetamine immunoassays are subject to significant false positive rates due to cross-reactivity of non-amphetamine drugs. Current Interpretive Data was last reviewed 2018. Barbiturates, ur Not Detected CutOff 200ng/mL [facility] Comment: Interpretive Data - Barbiturates: ??Samples containing greater than 200 ng/mL secobarbital or other cross-reacting barbiturate compounds are reported as positive. ??False positive and false negative results are possible. Current Interpretive Data was last reviewed 2018. Benzodiazepines, ur Not Detected CutOff 100ng/mL [facility] Comment: Interpretive Data - Benzodiazepines: ??Samples containing greater than 100 ng/mL nordiazepam or other cross-reacting compounds are reported as positive. ?? False positive and false negative results are possible. ?? Current Interpretive Data was last reviewed 2018. Cannabinoids, ur Not Detected CutOff 50 ng/mL [facility] Cocaine, ur Not Detected CutOff 150ng/mL [facility] Comment: Interpretive Data - Cocaine: ??Samples containing greater than 150 ng/mL benzoylecgonine or other cross-reacting compounds are reported as positive. False positive and false negative results are possible. Current Interpretive Data was last reviewed 2018. Fentanyl, Ur Not Detected Cutoff 1 ng/mL [facility] Comment: Interpretive Data - Fentanyls: ??Samples containing greater than 1 ng/mL fentanyl or other cross-reacting fentanyl compounds are reported as detected. ??False positive and false negative results are possible. Current Interpretive Data was last reviewed 2018. Methadone, ur Not Detected CutOff 300ng/mL [facility] Comment: Interpretive Data - Methadone: ??Samples containing greater than 300 ng/mL d,l-methadone or other cross-reacting compounds are reported as positive. ??False positive and false negative results are possible. Current Interpretive Data was last reviewed 2018. Opiates, ur Not Detected CutOff 300ng/mL [facility] Comment: Interpretive Data - Opiates: ??Samples containing greater than 300 ng/mL morphine or other cross-reacting compounds are reported as positive. ??False positive and false negative results are possible. Current Interpretive Data was last reviewed 2018. Oxycodone, ur Not Detected CutOff 100ng/mL [facility] Comment: Interpretive Data - Oxycodone: ??Samples containing greater than 100 ng/mL oxycodone or other cross-reacting compounds are reported as positive. ??False positive and false negative results are possible. ?? Current Interpretive Data was last reviewed 2018. Phencyclidine, ur Not Detected CutOff 25 ng/mL [facility] Comment: Interpretive Data - Phencyclidine: ??Samples containing greater than 25 ng/mL phencyclidine or other cross-reacting compounds are reported as positive. ??False positive and false negative results are possible. ?? Current Interpretive Data was last reviewed 2018. Urine Creatinine 184 mg/dL [facility] Comment: Interpretive Data Urine Creatinine: < 10 mg/dL is extremely dilute = or > 10 but < 20 mg/dL is dilute = or > 20 mg/dL is normal Current Interpretive Data was last revised on 2017. Urine 05/22/2021 3:06 AM BINDER LAYER 05/22/2021 5:27 AM BINDER LAYER Narrative [facility] - 05/22/2021 6:04 AM BINDER LAYER Drug of Abuse screening is performed by immunoassay for medical purposes only. ??This is not to be used for Pain Management purposes. ??If Detected, confirmation testing will be performed for Amphetamines, Cocaine, Fentanyl, Methadone, Opiates, Oxycodone or Phencyclidine. us Erna Schilling MD LAB URINE ORDERABLES Final Result [facility] [place] [address] * CTA Head Neck W WO Contrast (05/22/2021 1:57 AM BINDER LAYER) Anatomical Region Laterality Modality Head and Neck N/A Computed Tomogra phy 05/22/2021 2:29 AM BINDER LAYER Impressions 05/22/2021 8:22 AM BINDER LAYER 1. No CT evidence of large acute infarct or acute intracranial hemorrhage. 2. No CTA evidence of large arterial occlusion or significant stenosis identified in the head or neck. Dictated by: Godfrey Buitrago M.D. The radiology attending physician has personally reviewed this study, and had reviewed and/or edited this written report and agrees with it. Electronically signed by: Blank Powell M.D. Narrative 05/22/2021 8:22 AM BINDER LAYER EXAMINATION: Computed tomography angiography (CTA) of the head without and with contrast CTA of the neck with contrast HISTORY: Transient ischemic attack. TECHNIQUE: Computed tomography of the head was performed without contrast according to standard protocol. Then CTA was obtained from the aortic arch to the vertex following the uneventful administration of intravenous contrast. 3D images were generated on a dedicated workstation. Contrast information: 95 mL Optiray-350 COMPARISON: CT 05/21/2021 8:29 PM FINDINGS: There is no acute intracranial hemorrhage. The ventricles are normal in size and position without evidence of hydrocephalus. No mass effect or midline shift is present. The vazquez-white matter differentiation is normal. ??The visualized portions of the orbits, paranasal sinuses, and mastoids appear unchanged with bilateral maxillary sinus mucus retention cyst. No fractures are identified. Unchanged vascular calcifications of the intracranial vasculature. No soft tissue abnormality is identified in the neck. No acute fracture in the cervical spine. Angiographic findings: The visualized aortic arch appears normal with normal configuration of the great vessels. The innominate artery and both subclavian arteries are normal in course and caliber. The common carotid arteries are normal in course and caliber with normal carotid bifurcations bilaterally. The course and caliber of the internal carotid arteries are normal. There are mild atherosclerotic calcifications within the vertebral and internal carotid arteries but no areas of significant atherosclerotic narrowing or filling defects are identified. The [id number] is complete. The anterior and middle cerebral arteries are normal. The vertebral arteries are codominant. The basilar artery is normal. The posterior cerebral arteries are normal. There is no aneurysm or vascular malformation identified. Procedure Note Blank Goodson MD - 05/22/2021 EXAMINATION: Computed tomography angiography (CTA) of the head without and with contrast CTA of the neck with contrast HISTORY: Transient ischemic attack. TECHNIQUE: Computed tomography of the head was performed without contrast according to standard protocol. Then CTA was obtained from the aortic arch to the vertex following the uneventful administration of intravenous contrast. 3D images were generated on a dedicated workstation. Contrast information: 95 mL Optiray-350 COMPARISON: CT 05/21/2021 8:29 PM FINDINGS: There is no acute intracranial hemorrhage. The ventricles are normal in size and position without evidence of hydrocephalus. No mass effect or midline shift is present. The vazquez-white matter differentiation is normal. The visualized portions of the orbits, paranasal sinuses, and mastoids appear unchanged with bilateral maxillary sinus mucus retention cyst. No fractures are identified. Unchanged vascular calcifications of the intracranial vasculature. No soft tissue abnormality is identified in the neck. No acute fracture in the cervical spine. Angiographic findings: The visualized aortic arch appears normal with normal configuration of the great vessels. The innominate artery and both subclavian arteries are normal in course and caliber. The common carotid arteries are normal in course and caliber with normal carotid bifurcations bilaterally. The course and caliber of the internal carotid arteries are normal. There are mild atherosclerotic calcifications within the vertebral and internal carotid arteries but no areas of significant atherosclerotic narrowing or filling defects are identified. The [id number] is complete. The anterior and middle cerebral arteries are normal. The vertebral arteries are codominant. The basilar artery is normal. The posterior cerebral arteries are normal. There is no aneurysm or vascular malformation identified. IMPRESSION: 1. No CT evidence of large acute infarct or acute intracranial hemorrhage. 2. No CTA evidence of large arterial occlusion or significant stenosis identified in the head or neck. Dictated by: Godfrey Buitrago M.D. The radiology attending physician has personally reviewed this study, and had reviewed and/or edited this written report and agrees with it. Electronically signed by: Blank Powell M.D. Beatriz Treadwell MD IM CT PROCEDURES Final Re sult * Troponin I high-sensitivity 2-hour (05/21/2021 9:51 PM BINDER LAYER) Trop I hs <4 <=35 ng/L [facility] Comment: Interpretive Data For further hscTnI resources including the diagnostic algorithm and an aid in interpretation, copy and paste this link: [email or web address] Current Interpretive Data last revised 2019. Trop I hs delta 0 ng/L MARIN WHITEHEAD Trop I hs interp Insignificant CERMIKE Dickens Blood 05/21/2021 9:51 PM BINDER LAYER 05/21/2021 10:17 PM BINDER L[facility]ER Beatriz Treadwell MD LAB BLOOD ORDERABLES Final Result MARIN GERMAN [facility] [place] [address] * CT Head WO Contrast (05/21/2021 8:31 PM BINDER LAYER) Anatomical Region Laterality Modality Head and Neck N/A Computed Tomogra phy 05/21/2021 9:48 PM BINDER LAYER Impressions 05/22/2021 7:47 AM BINDER LAYER No large acute territory infarct and no acute intracranial hemorrhage. The time sensitive The time sensitive CT HEAD W/O was communicated by Dr. Nichols to stroke team at 05/21/2021 at 940 PM Dictated by: Viktoria Morel M.D. The radiology attending physician has personally reviewed this study, and had reviewed and/or edited this written report and agrees with it. Electronically signed by: Blank Powell M.D. Narrative 05/22/2021 7:47 AM BINDER LAYER EXAMINATION: CT head without contrast HISTORY: Dysarthria. TECHNIQUE: Noncontrast CT of the brain was performed with images acquired from skull base to vertex. COMPARISON: CT dated 08/23/2020. FINDINGS: Topogram demonstrates no lytic lesions or fractures. There is no acute intracranial hemorrhage. Ventricles are of normal size and morphology. No mass effect or midline shift is present. The vazquez-white matter differentiation is normal. The visualized portions of the orbits are normal. The visualized portions of the mastoids are normal. Bilateral mucous retention cyst noted in the maxillary sinuses. Vascular calcification of the intracranial vessels. No fractures are identified. Procedure Note Blank Goodson MD - 05/22/2021 EXAMINATION: CT head without contrast HISTORY: Dysarthria. TECHNIQUE: Noncontrast CT of the brain was performed with images acquired from skull base to vertex. COMPARISON: CT dated 08/23/2020. FINDINGS: Topogram demonstrates no lytic lesions or fractures. There is no acute intracranial hemorrhage. Ventricles are of normal size and morphology. No mass effect or midline shift is present. The vazquez-white matter differentiation is normal. The visualized portions of the orbits are normal. The visualized portions of the mastoids are normal. Bilateral mucous retention cyst noted in the maxillary sinuses. Vascular calcification of the intracranial vessels. No fractures are identified. IMPRESSION: No large acute territory infarct and no acute intracranial hemorrhage. The time sensitive The time sensitive CT HEAD W/O was communicated by Dr. iNchols to stroke team at 05/21/2021 at 940 PM Dictated by: Viktoria Morel M.D. The radiology attending physician has personally reviewed this study, and had reviewed and/or edited this written report and agrees with it. Electronically signed by: Blank Powell M.D. [facility] IMG CT PROCEDURES Final Re sult * XR Chest 1 Vw Portable (05/21/2021 8:03 PM BINDER LAYER) Anatomical Region Laterality Modality Body, Chest N/A Computed Radiogr aphy 05/21/2021 8:37 PM BINDER LAYER Impressions 05/21/2021 8:49 PM BINDER LAYER Mildly increased bibasilar atelectasis. ??No focal pulmonary consolidation. ??No pleural effusion. ??No pneumothorax. Cardiomediastinal silhouette is stable and within normal limits. Partially visualized stable thoracic spine vertebral compression deformities, better characterized in prior radiographs. Dictated by: Gina Anderson M.D. The radiology attending physician has personally reviewed this study, and had reviewed and/or edited this written report and agrees with it. Electronically signed by: DO Thea Powers 05/21/2021 8:49 PM BINDER LAYER EXAMINATION: XR CHEST 1 VIEW HISTORY: Shortness of breath COMPARISON: The current study is compared with the prior radiograph dated ??08/19/2020. Procedure Note Dann Ferrari DO - 05/21/2021 EXAMINATION: XR CHEST 1 VIEW HISTORY: Shortness of breath COMPARISON: The current study is compared with the prior radiograph dated 08/19/2020. IMPRESSION: Mildly increased bibasilar atelectasis. No focal pulmonary consolidation. No pleural effusion. No pneumothorax. Cardiomediastinal silhouette is stable and within normal limits. Partially visualized stable thoracic spine vertebral compression deformities, better characterized in prior radiographs. Dictated by: Gina Anderson M.D. The radiology attending physician has personally reviewed this study, and had reviewed and/or edited this written report and agrees with it. Electronically signed by: Dann Ferrari DO us Beatriz Treadwell MD IMG XR PROCEDURES Final Re sult * POCT glucose (05/21/2021 7:55 PM BINDER LAYER) Pathologist [facility] Glucose, POC 106 70 - 199 mg/dL [facility] Blood 05/21/2021 7:55 PM BINDER LAYER 05/21/2021 7:55 PM BINDER LAYER us Notinfile Unknown LAB POCT ORDERABLES - DEVICE F inal Result [facility] Department [place] [address] * Influenza A/B, RSV, and COVID-19 PCR Nasopharyngeal (05/21/2021 7:54 PM BINDER LAYER) [facility] COVID-19 RNA Negative Negative [facility] Influenza A RNA Negative Negative [facility] Influenza B RNA Negative Negative [facility] RSV RNA Negative Negative [facility] Comment: Interpretive data: Testing performed by [facility] ([id number]). This test is performed using the [employer] Xpert Xpress CoV-2/Flu/RSV plus assay. This is a multiplex, real-time reverse transcriptase PCR assay intended for the qualitative detection of nucleic acid from SARS-CoV-2, influenza A, influenza B, and respiratory syncytial virus. This assay has been reviewed by the FDA for Emergency Use Authorization (EUA). The performance characteristics have been verified by the [facility]. Results must be considered in the clinical context, and a negative result does not rule out infection. Interpretive Data last revised 2021. First COVID-19 test? No MARIN GERMAN Employeed in healthcare? Unknown MARIN WHITEHEAD Group care resident? Unknown MARIN WHITEHEAD Hospitalized? Unknown MARIN WHITEHEAD Is patient in ICU? Unknown MARIN GERMAN Symptomatic as defined by CDC? Unknown MARIN GERMAN Nasopharyngeal 05/21/2021 7: 54 PM [facility]ER L[facility]ER 05/21/2021 8:04 PM BINDER LAYER Narrative MARIN WHITEHEAD - 05/21/2021 8:44 PM BINDER LAYER Reason for testing?->Bed placement or semi-private room Known exposure to confirmed or suspected COVID-19 case?->No Beatriz Treadwell MD LAB MICROBIOLOGY - GENERAL ORDERABLES Final Result MARIN WHITEHEAD [facility] [place] [address] * ECG 12-LEAD (05/21/2021 7:50 PM BINDER LAYER) Narrative [facility] [place] - 05/21/2021 7:50 PM BINDER LAYER Sukhdev Tobar MD ? 05/21/2021 ??7:50 PM ECG 12 lead Date/Time: 05/21/2021 7:50 PM Performed by: Sukhdev Tobar MD Authorized by: Beatriz Treadwell MD Rate: ??ECG rate: ??94 ??ECG rate assessment: normal ?? Rhythm: ??Rhythm: sinus rhythm ?? Ectopy: ??Ectopy: none ?? QRS: ??QRS axis: ??Normal ??QRS intervals: ??Normal Conduction: ??Conduction: normal ?? ST segments: ??ST segments: ??Normal T waves: ??T waves: normal ?? Previous ECG: ??Previous ECG: ??Unavailable Interpretation: ??Interpretation: normal ?? Recommended Follow-up: ??Recommended follow up: further workup in the ED ?? Procedure Note Sukhdev Tobar MD - 05/21/2021 7:50 PM CST Procedure ECG 12 lead Date/Time: 05/21/2021 7:50 PM Performed by: Sukhdev Tobar MD Authorized by: Beatriz Treadwell MD Rate: ECG rate: 94 ECG rate assessment: normal Rhythm: Rhythm: sinus rhythm Ectopy: Ectopy: none QRS: QRS axis: Normal QRS intervals: Normal Conduction: Conduction: normal ST segments: ST segments: Normal T waves: T waves: normal Previous ECG: Previous ECG: Unavailable Interpretation: Interpretation: normal Recommended Follow-up: Recommended follow up: further workup in the ED Sukhdev Tobar MD 05/21/21 1950 us Beatriz Treadwell MD ECG ORDERABLES Final Resu lt Performing Organization Address [facility] Co de Phone Number [facility] * Carbamazepine level, total (05/21/2021 7:48 PM BINDER LAYER) Carbamazepine 8.1 3.0 - 12.0 mcg/mL [facility] Comment: Interpretive Data Therapeutic or Toxic effect of anticonvulsant drugs may occur at different concentrations in different patients and the correlation between dose and clinical effect must be evaluated individually. Current interpretive data was last revised on 13. Blood 05/21/2021 7:48 PM [facility]INDER L[facility]ER 05/21/2021 8:04 PM BINDER LAYER us Sukhdev Chaudhary MD LAB BLOOD ORDERABLES Final R esult Performing Organization Address [facility] Co de Phone Number [facility] [place] [address] * (ABNORMAL) Valproic acid level, total (05/21/2021 7:48 PM BINDER LAYER) Valproic Acid 29.0(L) 50.0 - 100.0 mcg/mL [facility] Comment: Interpretive Data Therapeutic or toxic effects of anticonvulsant drugs may occur at different concentrations in different patients and the correlation between dose and clinical effect must be evaluated individually. Current interpretative data was last revised on 13. Blood 05/21/2021 7:48 PM BINDER LAYER 05/21/2021 8:04 PM BINDER LAYER us Sukhdev Chaudhary MD LAB BLOOD ORDERABLES Final R esult Performing Organization Address City/[facility] Co de Phone Number [facility] [place] [address] * (ABNORMAL) eGFR (05/21/2021 7:48 PM BINDER LAYER) eGFR 83(L) 90 - 130 mL/min/1. 73 m2 [facility] Comment: Interpretive Data Reference Interval Normal ?>/= 90 mL/min/1.73m2 Mildly decreased* ? 60 - 89 mL/min/1.73m2 Mildly to moderately decreased ?45 - 59 mL/min/1.73m2 Moderately to severely decreased ??30 - 44 mL/min/1.73m2 Severely decreased ?15 - 29 mL/min/1.73m2 Kidney Failure ?< 15 ??mL/min/1.73m2 *Relative to young adult level Estimated glomerular filtration rate is determined by the 2020 CKD-EPI equation recommended by the National Kidney Foundation (A Unifying Approach to GFR Estimation: Recommendations of the NKF-ASK Task Force on Reassessing the Inclusion of Race in Diagnosing Kidney Disease, JASN 2020). The CKD-EPI equation should not be used for patients with unstable renal function and has not been validated in children and those over 70. Current interpretive data was last reviewed 2021. Blood 05/21/2021 7:48 PM BINDER LAYER 05/21/2021 8:04 PM BINDER LAYER us Beatriz Treadwell MD LAB BLOOD ORDERABLES Final Result Performing Organization Address City/[facility] Co de Phone Number [facility] Department [place] [address] * Magnesium (05/21/2021 7:48 PM BINDER LAYER) Magnesium 1.7 1.4 - 2.5 mg/dL [facility] Blood 05/21/2021 7:48 PM BINDER LAYER 05/21/2021 8:04 PM BINDER LAYER Sukhdev Chaudhary MD LAB BLOOD ORDERABLES Final R esult [facility] [place] [address] * Differential, auto (05/21/2021 7:48 PM BINDER LAYER) Pathologist [facility] Neutrophil abs 5.6 1.7 - 6.5 K/cumm [facility] Imm gran abs 0.0 0.0 - 0.1 K/cumm [facility] Lymphocyte abs 3.2 0.8 - 3.3 K/cumm [facility] Monocyte abs 0.6 0.2 - 0.8 K/cumm [facility] Eosinophil abs 0.2 0.0 - 0.5 K/cumm [facility] Basophil abs 0.1 0.0 - 0.1 K/cumm [facility] Neutrophil pct 57.6 % [facility] Comment: Interpretive Data Percent cell count reference ranges are not reported, since discordance with absolute values may lead to misinterpretation of CBC data. Current Interpretive Data was last revised on 2017. Imm gran pct 0.2 % [facility] Comment: Interpretive Data Percent cell count reference ranges are not reported, since discordance with absolute values may lead to misinterpretation of CBC data. Current Interpretive Data was last revised on 2017. Lymphocyte pct 32.9 % [facility] Comment: Interpretive Data Percent cell count reference ranges are not reported, since discordance with absolute values may lead to misinterpretation of CBC data. Current Interpretive Data was last revised on 2017. Monocyte pct 6.5 % [facility] Comment: Interpretive Data Percent cell count reference ranges are not reported, since discordance with absolute values may lead to misinterpretation of CBC data. Current Interpretive Data was last revised on 2017. Eosinophil pct 1.9 % [facility] Comment: Interpretive Data Percent cell count reference ranges are not reported, since discordance with absolute values may lead to misinterpretation of CBC data. Current Interpretive Data was last revised on 2017. Basophil pct 0.9 % [facility] Comment: Interpretive Data Percent cell count reference ranges are not reported, since discordance with absolute values may lead to misinterpretation of CBC data. Current Interpretive Data was last revised on 2017. Blood 05/21/2021 7:48 PM BINDER LAYER 05/21/2021 8:04 PM BINDER LAYER Beatriz Treadwell MD LAB BLOOD ORDERABLES Final Result Performing Organization Address City/[facility]/ZIP Co de Phone Number [facility] [place] [address] * Phosphorus (05/21/2021 7:48 PM BINDER LAYER) Pathologist [facility] Phosphorus, pl 2.6 2.3 - 4.5 mg/dL [facility] Blood 05/21/2021 7:48 PM BINDER LAYER 05/21/2021 8:04 PM BINDER LAYER Beatriz Treadwell MD LAB BLOOD ORDERABLES Final Result Performing Organization Address City/[facility]/ZIP Co de Phone Number [facility] [place] [address] * Comprehensive metabolic panel (05/21/2021 7:48 PM BINDER LAYER) Pathologist [facility] Sodium 145 135 - 145 mmol/L [facility] Potassium, pl 3.5 3.3 - 4.9 mmol/L [facility] Chloride 105 97 - 110 mmol/L [facility] CO2 27 22 - 32 mmol/L [facility] Anion gap 13 2 - 15 mmol/L [facility] BUN 12 8 - 25 mg/dL [facility] Creatinine 0.98 0.80 - 1.30 mg/dL [facility] Glucose 118 70 - 199 mg/dL [facility] Comment: Interpretive Data Fasting glucose >/= 126 mg/dl is diagnostic for diabetes. ?? Fasting is defined as no caloric intake for at least 8 hours. Fasting glucose between 100 mg/dl to 125 mg/dl is diagnostic of prediabetes. In a patient with classic symptoms of hyperglycemia or hyperglycemic crisis, a random glucose >/= 200 mg/dl is diagnostic for diabetes. In the absence of unequivocal hyperglycemia, results should be confirmed by repeat testing. The classification and Diagnosis of Diabetes Diabetes Care 2017;40 (Suppl. 1):S11. Current interpretive data was last revised 2017. Calcium 9.9 8.5 - 10.3 mg/dL [facility] Bilirubin, total 0.3 0.1 - 1.2 mg/dL [facility] Protein, pl 7.7 6.5 - 8.5 g/dL [facility] Albumin 4.5 3.5 - 5.0 g/dL [facility] Alk phos 115 40 - 130 Units/L [facility] ALT 31 7 - 55 Units/L [facility] AST 23 10 - 50 Units/L [facility] Blood 05/21/2021 7:48 PM BINDER LAYER 05/21/2021 8:04 PM BINDER LAYER Beatriz Treadwell MD LAB BLOOD ORDERABLES Final Result Performing Organization Address [facility]/ZIP Co de Phone Number [facility] [place] [address] * TSH reflex to free T4 (05/21/2021 7:48 PM BINDER LAYER) TSH 1.00 0.30 - 4.20 mcIUnit/mL [facility] Blood 05/21/2021 7:48 PM BINDER LAYER 05/21/2021 8:04 PM BINDER LAYER Beatriz Treadwell MD LAB BLOOD ORDERABLES Final Result Performing Organization Address [facility]/ZIP Co de Phone Number [facility] [place] [address] * (ABNORMAL) aPTT (05/21/2021 7:48 PM BINDER LAYER) aPTT 41(H) 27 - 37 sec [facility] Comment: Interpretive Data Therapeutic heparin range: 60.0 - 94.0 seconds. Based on correlation with therapeutic heparin activity range of 0.3-0.7 Units/mL. Current interpretive data was last revised on 2020. Blood 05/21/2021 7:48 PM BINDER LAYER 05/21/2021 8:07 PM BINDER LAYER Beatriz Treadwell MD LAB BLOOD ORDERABLES Final Result Performing Organization Address [facility] [place] [address] * Protime-INR (05/21/2021 7:48 PM BINDER LAYER) PT 12.2 9.5 - 13.6 sec [facility] INR 1.1 0.9 - 1.2 [facility] Comment: Interpretive data Oral anticoagulant therapeutic ranges: Venous thromboembolism prophylaxis or treatment: 2.0-3.0 CARDIOLOGY Standard range: 2.0-3.0 High-intensity range: 2.5-3.5 Refer to indication-specific guidelines for appropriate target ranges for prosthetic heart valve replacement. Current interpretive data was last revised on 2019. Blood 05/21/2021 7:48 PM BINDER LAYER 05/21/2021 8:07 PM BINDER LAYER Beatriz Treadwell MD LAB BLOOD ORDERABLES Final Result Performing Organization Address [facility] [place] [address] * Troponin I high-sensitivity series (baseline, 2hr, 4hr, 6hr) (05/21/2021 7:48 PM BINDER LAYER) Trop I hs <4 <=35 ng/L [facility] Comment: Interpretive Data For further [facility] resources including the diagnostic algorithm and an aid in interpretation, copy and paste this link: [email or web address].org/[email or web address] Current Interpretive Data last revised 2019. Blood 05/21/2021 7:48 PM BINDER LAYER 05/21/2021 8:04 PM BINDER LAYER Beatriz Treadwell MD LAB BLOOD ORDERABLES Final Result [facility] [place] [address] * CBC with auto differential (05/21/2021 7:48 PM BINDER LAYER) [facility] WBC 9.7 3.8 - 9.9 K/cumm [facility] Hgb 16.1 13.0 - 17.5 g/dL [facility] Hct 47.9 38.9 - 50.3 % [facility] Plt 245 150 - 400 K/cumm [facility] MPV 10.2 9.1 - 12.3 fL [facility] RBC 5.42 4.30 - 5.80 M/cumm [facility] MCV 88.4 81.3 - 96.4 fL [facility] MCH 29.7 27.1 - 33.3 pg [facility] MCHC 33.6 32.3 - 35.7 g/dL [facility] RDW CV 12.0 11.1 - 14.9 % [facility] RDW SD 38.5 35.7 - 48.1 fL [facility] NRBC abs 0.00 0.00 - 0.01 K/cumm [facility] Blood 05/21/2021 7:48 PM BINDER LAYER 05/21/2021 8:04 PM BINDER LAYER Beatriz Treadwell MD LAB BLOOD ORDERABLES Final Result [facility] [place] [address] documented in this encounter Visit Diagnoses Diagnosis TIA (transient ischemic attack)- Primary Unspecified transient cerebral ischemia TIA (transient ischemic attack) Unspecified transient cerebral ischemia Dysarthria documented in this encounter Admitting Diagnoses Diagnosis TIA (transient ischemic attack) Unspecified transient cerebral ischemia documented in this encounter Administered Medications Inactive Administered Medications - up to 3 most recent administrations Medication Order MAR Action Action Date Dose Rate Site acetaminophen (TYLENOL) tablet 650 mg 650 mg, oral, Every 4 hours PRN, 1st line for pain, fever, fever greater than 38.3 C, Starting on Sat05/22/21 at 0228, Indications: Fever, PainIndications:Fever,Pain aspirin suppository 300 mg 300 mg, rectal, Daily, First dose on Sat05/22/21 at 0315, If unable to tolerate PO, Indications: cerebral ischemia, Cerebral IschemiaIndications:cerebral ischemia,Cerebral Ischemia aspirin tablet 325 mg 325 mg, oral, Daily, First dose on Sat05/22/21 at 0315, Administer suppository per rectum if unable to tolerate PO., Indications: cerebral ischemia, Cerebral IschemiaIndications:cerebral ischemia,Cerebral Ischemia Given 05/24/2021 8:07 AM BINDER LAYER 325 mg Given 05/23/2021 8:15 AM BINDER LAYER 325 mg Given 05/22/2021 3:11 AM BINDER LAYER 325 mg atorvastatin (LIPITOR) tablet 80 mg 80 mg, oral, Daily, First dose on Sat05/22/21 at 0900, Indications: hyperlipidemiaIndications:hyperlipidemia Given 05/24/2021 8:07 AM BINDER LAYER 80 mg Given 05/23/2021 8:15 AM BINDER LAYER 80 mg Given 05/22/2021 8:28 AM BINDER LAYER 80 mg bisacodyL (DULCOLAX) suppository 10 mg 10 mg, rectal, Daily PRN, constipation, If no results 24 hours after polyethylene glycol (MIRALAX). May give bisacodyl tablet if tolerating PO., Starting on Sat05/22/21 at 0228, Indications: constipationIndications:constipation bisacodyl EC (DULCOLAX EC) tablet 10 mg 10 mg, oral, Daily PRN, constipation, If no results 24 hours after polyethylene glycol (MIRALAX). May give bisacodyl supp if not tolerating PO), Starting on Sat05/22/21 at 0228, Do not crush, chew, cut, dissolve, open or otherwise manipulate tablet/capsule., Indications: constipationIndications:constipation carBAMazepine XR (TEGretol XR) extended release tablet 600 mg 600 mg, oral, 2 times daily, First dose on Sat05/22/21 at 0900, Do not crush, chew, cut, dissolve, open or otherwise manipulate tablet/capsule. Given 05/24/2021 8:07 AM BINDER LAYER 600 mg Given 05/23/2021 8:31 PM BINDER LAYER 600 mg Given 05/23/2021 8:14 AM BINDER LAYER 600 mg clopidogreL (PLAVIX) tablet 300 mg 300 mg, oral, Once, On Sat05/22/21 at 1115, For 1 dose Given 05/22/2021 11:15 AM BINDER LAYER 300 mg clopidogreL (PLAVIX) tablet 75 mg 75 mg, oral, Daily, First dose on Sat05/23/21 at 0900, For 21 days Given 05/24/2021 8:07 AM BINDER LAYER 75 mg Given 05/23/2021 8:14 AM BINDER LAYER 75 mg enoxaparin (LOVENOX) syringe 40 mg 40 mg, subcutaneous, Daily (for enoxaparin), First dose on Sat05/22/21 at 2100, Indications: Deep Vein Thrombosis PreventionIndications:Deep Vein Thrombosis Prevention Given 05/23/2021 8:32 PM BINDER LAYER 40 mg Right Lower Abdomen Given 05/22/2021 9:02 PM BINDER LAYER 40 mg Le ft Lower Abdomen fluticasone propionate (FLONASE) 50 mcg/actuation nasal spray 1 spray 1 spray, each nostril, Daily, First dose on Sat05/22/21 at 0900 Given 05/24/2021 8:09 AM BINDER LAYER 1 spray Given 05/23/2021 8:15 AM BINDER LAYER 1 spray Given 05/22/2021 8:54 AM BINDER LAYER 1 spray ioversoL (OPTIRAY 350) syringe syringe 100 mL 100 mL, intravenous, Once in imaging, contrast, Starting on Sat05/22/21 at 0121, For 1 dose Contrast Given 05/22/2021 1:58 AM BINDER LAYER 95 mL Lactated Ringer's (LR) bolus 500 mL 500 mL, intravenous, Once, On Sat05/22/21 at 1100, For 1 dose New Bag 05/22/2021 11:18 AM BINDER LAYER 500 mL ondansetron (ZOFRAN) injection 4 mg 4 mg, intravenous, Administer over 2 Minutes, Every 6 hours PRN, nausea, vomiting, if not tolerating PO, Starting on Sat05/22/21 at 0228, Indications: Nausea and VomitingIndications:Nausea and Vomiting ondansetron ODT (ZOFRAN-ODT) disintegrating tablet 4 mg 4 mg, oral, Every 6 hours PRN, nausea, vomiting, Starting on Sat05/22/21 at 0228, Indications: Nausea and VomitingIndications:Nausea and Vomiting pantoprazole DR (PROTONIX) extended release tablet 40 mg 40 mg, oral, Daily, First dose on Sat05/22/21 at 0900, Do not crush, chew, cut, dissolve, open or otherwise manipulate tablet/capsule., Indications: Treatment of Non-Bleeding Gastric DisorderIndications:Treatment of Non-Bleeding Gastric Disorder Given 05/24/2021 8:07 AM BINDER LAYER 40 mg Given 05/23/2021 8:14 AM BINDER LAYER 40 mg Given 05/22/2021 8:28 AM BINDER LAYER 40 mg polyethylene glycol (MIRALAX) packet 17 g 17 g, oral, Daily PRN, constipation, Starting on Sat05/22/21 at 0228, Indications: constipationIndications:constipation rOPINIRole (REQUIP) tablet 0.5 mg 0.5 mg, oral, Nightly, First dose on Sat05/22/21 at 2100 Given 05/23/2021 8:31 PM BINDER LAYER 0.5 mg Given 05/22/2021 9:02 PM BINDER LAYER 0.5 mg sodium chloride 0.9% flush 0.5-20 mL 0.5-20 mL, intra-catheter, Every 8 hours scheduled, First dose on Sat05/22/21 at 0600, Flush volume based on line type and size. Given 05/23/2021 8:32 PM BINDER LAYER 10 mL Given 05/23/2021 2:16 PM BINDER LAYER 10 mL Given 05/22/2021 9:02 PM BINDER LAYER 10 mL sodium chloride 0.9% flush 0.5-20 mL 0.5-20 mL, intra-catheter, As needed, line care, Starting on Sat05/22/21 at 0224, Flush volume based on line type and size. Flush before and after each use. sodium chloride 0.9% infusion 125 mL/hr, intravenous, Continuous, Starting on Sat05/22/21 at 0315, For 10 hours New Bag 05/22/2021 3:12 AM BINDER LAYER 125 mL/hr 125 mL/hr traZODone (DESYREL) tablet 25 mg 25 mg, oral, Nightly PRN, sleep, Starting on Sat05/22/21 at 0259 Given 05/22/2021 3:11 AM BINDER LAYER 25 mg umeclidinium-vilanteroL (ANORO ELLIPTA) 62.5-25 mcg/actuation inhaler 1 puff 1 puff, inhalation, Daily (respiratory assistant), First dose on Sat05/22/21 at 0800 Given 05/22/2021 10:44 AM BINDER LAYER 1 puff umeclidinium-vilanteroL (ANORO ELLIPTA) 62.5-25 mcg/actuation inhaler 1 puff 1 puff, inhalation, Daily, First dose (after last modification) on Sat05/23/21 at 0900 Given 05/24/2021 8:09 AM BINDER LAYER 1 puff Given 05/23/2021 10:06 AM BINDER LAYER 1 puff valproate (DEPAKENE) capsule 500 mg 500 mg, oral, 4 times daily, First dose on Sat05/22/21 at 0800, Do not crush, break, or open. Given 05/24/2021 11:11 AM BINDER LAYER 500 mg Given 05/24/2021 8:07 AM BINDER LAYER 500 mg Given 05/23/2021 8:31 PM BINDER LAYER 500 mg documented in this encounter Discontinued Medications Medication Sig Discontinue Reason Start Date End Da te tiotropium bromide (SPIRIVA RESPIMAT) 2.5 mcg/actuation inhaler Spiriva Respimat 2.5 mcg/actuation solution for inhalation INHALE 2 PUFFS PO QD Stop Taking at Discharge 05/24/2021 aspirin (Adult Low Dose Aspirin) 81 mg enteric coated tablet Take 1 tablet (81 mg total) by mouth daily Stop Taking at Discharge 12/13/2020 05/24/2021 documented as of this encounter Active and Recently Administered Medications Times are shown in BINDER LAYER. Scheduled Medication Order 05/22/2021 05/23/2021 05/24/2021 aspirin suppository 300 mg(Linked Group 1) 300 mg, rectal, Daily, First dose on Sat05/22/21 at 0315, If unable to tolerate PO, Indications: cerebral ischemia, Cerebral Ischemia 0311 (See Alternative - Provider: Elida Guerrero RN) 0815 (See Alternative - Provider: Lisbeth Forrest RN) 0807 (See Alternative - Provider: Lisbeth Forrest RN) aspirin tablet 325 mg(Linked Group 1) 325 mg, oral, Daily, First dose on Sat05/22/21 at 0315, Administer suppository per rectum if unable to tolerate PO., Indications: cerebral ischemia, Cerebral Ischemia 031 (Given - Provider: Elida Guerrero RN) 0815 (Given - Provider: Lisbeth Forrest RN) 0807 (Given - Provider: Lisbeth Forrest RN) atorvastatin (LIPITOR) tablet 80 mg 80 mg, oral, Daily, First dose on Sat05/22/21 at 0900, Indications: hyperlipidemia 0828 (Given - Provider: Lisbeth Forrest RN) 0815 (Given - Provider: Lisbeth Forrest RN) 0807 (Given - Provider: Lisbeth Forrest RN) carBAMazepine XR (TEGretol XR) extended release tablet 600 mg 600 mg, oral, 2 times daily, First dose on Sat05/22/21 at 0900, Do not crush, chew, cut, dissolve, open or otherwise manipulate tablet/capsule. 0828 (Given - Provider: Lisbeth Forrest RN)2100 (Given - Provider: Darlene Garcia RN) 0814 (Given - Provider: Lisbeth Forrest RN)2030 (Given - Provider: Darlene Garcia RN) 0807 (Given - Provider: Lisbeth Forrest RN) clopidogreL (PLAVIX) tablet 300 mg (COMPLETED) 300 mg, oral, Once, On Sat05/22/21 at 1115, For 1 dose 1115 (Given - Provider: Lisbeth Forrest RN) clopidogreL (PLAVIX) tablet 75 mg 75 mg, oral, Daily, First dose on Sat05/23/21 at 0900, For 21 days 0814 (Given - Provider: Lisbeth Forrest RN) 0807 (Given - Provider: Lisbeth Forrest RN) enoxaparin (LOVENOX) syringe 40 mg 40 mg, subcutaneous, Daily (for enoxaparin), First dose on Sat05/22/21 at 2100, Indications: Deep Vein Thrombosis Prevention 2101 (Given - Provider: Darlene Garcia RN) 2031 (Given - Provider: Darlene Garcia RN) fluticasone propionate (FLONASE) 50 mcg/actuation nasal spray 1 spray 1 spray, each nostril, Daily, First dose on Sat05/22/21 at 0900 0854 (Given - Provider: Lisbeth Forrest RN) 0815 (Given - Provider: Lisbeth Forrest RN) 0809 (Given - Provider: Lisbeth Forrest RN) Lactated Ringer's (LR) bolus 500 mL (COMPLETED) 500 mL, intravenous, Once, On Sat05/22/21 at 1100, For 1 dose 1118 (New Bag - Provider: Lisbeth Forrest RN) pantoprazole DR (PROTONIX) extended release tablet 40 mg 40 mg, oral, Daily, First dose on Sat05/22/21 at 0900, Do not crush, chew, cut, dissolve, open or otherwise manipulate tablet/capsule., Indications: Treatment of Non-Bleeding Gastric Disorder 0828 (Given - Provider: Lisbeth Forrest RN) 0814 (Given - Provider: Lisbeth Forrest RN) 0807 (Given - Provider: Lisbeth Forrest RN) rOPINIRole (REQUIP) tablet 0.5 mg 0.5 mg, oral, Nightly, First dose on Sat05/22/21 at 2100 2101 (Given - Provider: Darlene Garcia RN) 2030 (Given - Provider: Darlene Garcia RN) sodium chloride 0.9% flush 0.5-20 mL 0.5-20 mL, intra-catheter, Every 8 hours scheduled, First dose on Sat05/22/21 at 0600, Flush volume based on line type and size. 0512 (Not Given - Provider: Elida Guerrero RN - Reason: IV Infusing)1344 (Not Given - Provider: Lisbeth Forrest RN - Reason: IV Infusing)2101 (Given - Provider: Darlene Garcia RN) 05 (Not Given - Provider: Darlene Garcia RN - Reason: Other)1416 (Given - Provider: Lisbeth Forrest RN)2032 (Given - Provider: Darlene Garcia RN) 0618 (Not Given - Provider: Darlene Garcia RN - Reason: Other)1318 (Not Given - Provider: Lisbeth Forrest RN - Reason: Other - Comment: pt being discharged) umeclidinium-vilanteroL (ANORO ELLIPTA) 62.5-25 mcg/actuation inhaler 1 puff (CANCELED) 1 puff, inhalation, Daily (respiratory assistant), First dose on Sat05/22/21 at 0800 1044 (Given - Provider: Jasmeet Tello, PARLIAMENTARY ARCHIVIST) umeclidinium-vilanteroL (ANORO ELLIPTA) 62.5-25 mcg/actuation inhaler 1 puff 1 puff, inhalation, Daily, First dose (after last modification) on Sat05/23/21 at 0900 1006 (Given - Provider: Lisbeth Forrest RN) 0809 (Given - Provider: Lisbeth Forrest RN) valproate (DEPAKENE) capsule 500 mg 500 mg, oral, 4 times daily, First dose on Sat05/22/21 at 0800, Do not crush, break, or open. 0828 (Given - Provider: Lisbeth Forrest RN)1116 (Given - Provider: Lisbeth Forrest RN)1621 (Given - Provider: Lisbeth Forrest RN)2102 (Given - Provider: Darlene Garcia RN) 0814 (Given - Provider: Lisbeth Forrest RN)1129 (Given - Provider: Lisbeth Forrest RN)1627 (Given - Provider: Lisbeth Forrest, RN)2031 (Given - Provider: Darlene Garcia RN) 0807 (Given - Provider: Lisbeth Forrest RN)1111 (Given - Provider: Lisbeth Forrest RN) Continuous Medication Order 05/22/2021 05/23/2021 05/24/2021 sodium chloride 0.9% infusion () 125 mL/hr, intravenous, Continuous, Starting on Sat05/22/21 at 0315, For 10 hours 0312 (New Bag - Provider: Elida Guerrero RN) PRN Medication Order 05/22/2021 05/23/2021 05/24/2021 acetaminophen (TYLENOL) tablet 650 mg 650 mg, oral, Every 4 hours PRN, 1st line for pain, fever, fever greater than 38.3 C, Starting on Sat05/22/21 at 0228, Indications: Fever, Pain bisacodyL (DULCOLAX) suppository 10 mg 10 mg, rectal, Daily PRN, constipation, If no results 24 hours after polyethylene glycol (MIRALAX). May give bisacodyl tablet if tolerating PO., Starting on Sat05/22/21 at 0228, Indications: constipation bisacodyl EC (DULCOLAX EC) tablet 10 mg 10 mg, oral, Daily PRN, constipation, If no results 24 hours after polyethylene glycol (MIRALAX). May give bisacodyl supp if not tolerating PO), Starting on Sat05/22/21 at 0228, Do not crush, chew, cut, dissolve, open or otherwise manipulate tablet/capsule., Indications: constipation ioversoL (OPTIRAY 350) syringe syringe 100 mL (COMPLETED) 100 mL, intravenous, Once in imaging, contrast, Starting on Sat05/22/21 at 0121, For 1 dose 0158 (Contrast Given - Provider: Eliza Santoro, RT) loratadine (CLARITIN) tablet 10 mg 10 mg, oral, Daily PRN, allergies, Starting on Sat05/22/21 at 0238 ondansetron (ZOFRAN) injection 4 mg(Linked Group 2) 4 mg, intravenous, Administer over 2 Minutes, Every 6 hours PRN, nausea, vomiting, if not tolerating PO, Starting on Sat05/22/21 at 0228, Indications: Nausea and Vomiting ondansetron ODT (ZOFRAN-ODT) disintegrating tablet 4 mg(Linked Group 2) 4 mg, oral, Every 6 hours PRN, nausea, vomiting, Starting on Sat05/22/21 at 0228, Indications: Nausea and Vomiting polyethylene glycol (MIRALAX) packet 17 g 17 g, oral, Daily PRN, constipation, Starting on Sat05/22/21 at 0228, Indications: constipation sodium chloride 0.9% flush 0.5-20 mL 0.5-20 mL, intra-catheter, As needed, line care, Starting on Sat05/22/21 at 0224, Flush volume based on line type and size. Flush before and after each use. traZODone (DESYREL) tablet 25 mg 25 mg, oral, Nightly PRN, sleep, Starting on Sat05/22/21 at 0259 0311 (Given - Provider: Elida Guerrero RN) Linked Groups Order Group 1: aspirin tablet 325 mgJump to med 325 mg, oral, Daily, First dose on Sat05/22/21 at 0315, Administer suppository per rectum if unable to tolerate PO., Indications: cerebral ischemia, Cerebral Ischemia Or aspirin suppository 300 mgJump to med 300 mg, rectal, Daily, First dose on Sat05/22/21 at 0315, If unable to tolerate PO, Indications: cerebral ischemia, Cerebral Ischemia Group 2: ondansetron ODT (ZOFRAN-ODT) disintegrating tablet 4 mgJump to med 4 mg, oral, Every 6 hours PRN, nausea, vomiting, Starting on Sat05/22/21 at 0228, Indications: Nausea and Vomiting Or ondansetron (ZOFRAN) injection 4 mgJump to med 4 mg, intravenous, Administer over 2 Minutes, Every 6 hours PRN, nausea, vomiting, if not tolerating PO, Starting on Sat05/22/21 at 0228, Indications: Nausea and Vomiting documented in this encounter Orders Medications Ordered That Buck ht Not Have Been Administered Count Last Ordered Date First Ordered Date acetaminophen (TYLENOL) tablet 650 mg 1 alteplase (ACTIVASE) bolus 9 mg 1 alteplase (ACTIVASE) IV 81 mg 1 05/22/2021 aspirin suppository 300 mg 05/22/2021 bisacodyL (DULCOLAX) suppository 10 mg bisacodyl EC (DULCOLAX EC) tablet 10 mg 1 0 05/22/2021 loratadine (CLARITIN) tablet 10 mg 2021 ondansetron (ZOFRAN) injection 4 mg 1 05/22 ondansetron ODT (ZOFRAN-ODT) disintegrating tablet 4 mg 05/22/2021 polyethylene glycol (MIRALAX) packet 17 g 1 05/22/2021 ramelteon (ROZEREM) tablet 8 mg 1 sodium chloride 0.9% flush 0.5-20 mL 1 04/26 sodium chloride 0.9% IVPB 50 mL 1 Lab Orders Without Results Count Last Ordered D ate First Ordered Date CARBAMAZEPINE LEVEL, TOTAL 1 05/21/2021 MAGNESIUM 1 05/21/2021 POCT GLUCOSE DEVICE 1 05/21/2021 VALPROIC ACID LEVEL, TOTAL 1 05/21/2021 General Supply Count Last Ordered Date First Or dered Date MISCELLANEOUS DME 1 05/23/2021 Nursing Count Last Ordered Date First Orde red Date DEPRESSION SCREENING 1 05/22/2021 NURSING SWALLOW ASSESSMENT 1 05/22/2021 Consult Count Last Ordered Date First Orde red Date IP CONSULT TO NUTRITION SERVICES 1 05/22/19 IP CONSULT TO SPIRITUAL CARE 1 05/22/2021 IS ANALYST CONSULT 1 05/22/2021 IP CONSULT TO NEUROLOGY 2 05/21/2021 ADT Patient Update Count Last Ordered Date Firs t Ordered Date ED IP DECISION TO ADMIT 1 05/22/2021 documented in this encounter Additional Health Concerns 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
--- OUTSIDE RECORDS SUMMARY | 2024-03-22 20:46 | XMS_ITS | Encounter Summary ---
Author Organization [facility] Healthcare Address [address] [place] [address] Care Team Providers Care Cable Tester Name Role Phone Stephan Donald MD Primary Care Provide r Encounter Details Date Type Department Care Team (Latest Contact Info) Description 05/24/2021 1:20 PM MILITARY PERSONNEL SPECIALIST - 05/24/2021 11:59 PM MILITARY PERSONNEL SPECIALIST Hospital Encounter [facility] [address] [place] [address] Discharge Disposition: Discharge to home or self [...] on file Legal Sex Male 2:59 AM MILITARY PERSONNEL SPECIALIST Gender Identity Not on file Sexual Orientation [...] PO QHS documented as of this encounter Discharge Disposition Disposition Code Departure Means Destination Discharge to home or self care documented in this encounter Plan of Treatment Not on file documented as of this encounter Procedures Procedure Name Priority Date/Time Associated Diagnosis Comments EVENT MONITOR Routine 05/24/2021 2:01 PM MILITARY PERSONNEL SPECIALIST documented in this encounter Results * Event Monitor, 30 Day Event (05/24/2021 2:01 PM MILITARY PERSONNEL SPECIALIST) Anatomical Region Laterality Modality Electrocardiogra phy 05/24/2021 1:25 PM MILITARY PERSONNEL SPECIALIST Narrative 06/26/2021 1:59 PM CDT Patient name: Humza Recio Date of test: 05/24/2021 Type of Test: Event Monitor (SHO) [facility] #: [id number] ?Location: [facility] : 1950 ??Age: 71 ??Sex: M Ref Physician(s): MAYNOR MENSAH MD Interpreted by: Grupo Maldonado MD [employer] Tech: Wanda Cleaning Diagnosis: Monitoring Service: [employer] Reason for Test: R00.2: Palpitations Monitor Used: Body Guardian Heart (MCT) ??[id number] Enrollment Period: May 24 - Jun 22, 2021 Alexis Bittar comments: Patient Instructions: Understood directions and use [...] The full scanned/data report is available in [employer]. labeled MONITOR STRIPS PDF . This study [...] test: 05/24/2021 Type of Test: Event Monitor ([facility]) [facility] #: [id number] Location: [facility] : 1950 Age: 71 Sex: M Ref Physician(s): MAYNOR MENSAH MD Interpreted by: Grupo Maldonado MD [employer] Solutions[employer] Tech: Wanda Cleaning Diagnosis: Monitoring Service: [employer] Reason for Test: R00.2: Palpitations Monitor Used: Body Guardian Heart (MCT) [id number] Enrollment Period: May 24 - Jun 22, 2021 Hook-Up Tech comments: Patient Instructions: Understood directions and use [...] The full scanned/data report is available in [facility]. labeled MONITOR STRIPS PDF . This study was interpreted by Grupo Maldonado MD Confirmed on 06/26/2021 - 13:59:27 by Grupo Maldonado MD Summary of Transmitted Events: # Date Time HR Symptoms/Rhythm 2 05/28/21 10:09 90.0 None Reported Sinus Rhythm, Sinus Tachycardia w/Artifact/Lead Loss 1 05/24/21 13:54 77.7 Baseline Auto Trigger Sinus Rhythm w/Artifact I have personally reviewed and interpreted this study. us Maynor Mensah NP [facility] Final Result documented in this encounter Visit Diagnoses Not on filedocumented in this encounter Care Teams Cable Tester Relationship Specialty Start Date End Date Stephan Donald MD [address] [address] PCP - General 12/16/17 documented as of this encounter
--- OUTSIDE RECORDS SUMMARY | 2024-03-22 20:46 | XMS_ITS | Encounter Summary ---
Author Organization [facility] Address [address] [place] [address] Phone Care Team Providers Care Assistant Hall Director Name Role Phone Stephan Donald MD Primary Care Provide r Chong López MD Unavailable Annika Daniel RN Unavailable Unavailable Mora Li RN Unavailable [phone] Encounter Details Date Type Department Care Team (Late st Contact Info) Description 01/16/[address] 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 * Telephone Encounter - Balbina Javed - 01/16/2022 12:20 PM CDT Images from the original note were not included. Per 01/02/22 Note Routing Mora Li, RN P [facility] Card Scheduling Pool Patient needs appt with Dr. López, he would be an ROV, last seen 12.13.20. Thank you, Mora documented in this encounter Plan of Treatment Not on file documented as of this encounter Visit Diagnoses Not on filedocumented in this encounter Care Teams Assistant Hall Director Relationship Specialty Start Date End Date Stephan Donald MD [address] [address] PCP - General 12/16/17 Chong López MD [address] [address] Referring Physician Cardiology 01/01/22 María, Annika, wool and pelt graderNeedle Leader Cardiology 01/01/22 04/24/23 Mora Li, RN [address] [address] Needle Leader Cardiology 01/01/22 documented as of this encounter
--- OUTSIDE RECORDS SUMMARY | 2024-03-22 20:47 | XMS_ITS | Encounter Summary ---
Author Organization [facility] Healthcare Address [address] [place] [address] Care Team Providers Care Surg Tech Name Role Phone No, Physician Primary Care Provider Encounter Details Date Type Department Care Team (Latest Contact Info) Description 03/01/2017 7:39 AM REGIONAL PROGRAM MANAGER - 03/01/2017 11:59 PM REGIONAL PROGRAM MANAGER Hospital Encounter [facility] Respiratory [id number] [place] [address] [place] [address] [address] [place] [address] [address] Chronic obstructive pulmonary disease with acute exacerbation (CMS/HCC) Discharge Disposition: Discharge to home or self care Social History Tobacco Use Types Packs/Day Years Used Date Smoking Tobacco: Never Assessed Sex and Gender Information Value Date Recorded Sex Assigned at Not on file Legal Sex Male 2:59 AM REGIONAL PROGRAM MANAGER Gender Identity Not on file Sexual Orientation Not on file documented as of this encounter Medications at Time of Discharge multivit with minerals/lutein (MULTIVITAMIN 50 PLUS ORAL) Take by mouth 11/08/2016 atorvastatin (LIPITOR) 20 mg tablet 09/14/2013 1 atorvastatin (LIPITOR) 40 mg tablet atorvastatin 40 mg tablet TAKE 1 TABLET BY MOUTH EVERY DAY 09/26/2016 1 diphenoxylate-at ropine (LomotiL) 2.5-0.025 mg per tablet Lomotil 2.5 mg-0.025 mg tablet Take 1 tablet as needed by oral route. 12/21/2013 1 oxyCODONE-acetam inophen (PERCOCET) 5-325 mg per tabletIndication s:Pain Take 1 tablet by mouth. 01/10/2017 1 VENTOLIN HFA 90 mcg/actuation inhaler 02/04/2017 1 documented as of this encounter Discharge Disposition Disposition Code Departure Means Destination Discharge to home or self care documented in this encounter Procedure Notes * Chuck Raphael MD - 03/01/2017 12:00 AM CST Humza Recio is 5 feet 10 inches, 210 pounds, 67 years of age. The patient had pulmonary functions at the request of Chris Castellon, nurse practitioner for . Testing performed 03/01/2017. The patient's room air O2 sat at rest 96%. The patient has moderate decreased forced vital capacity 2.88 L, 64% of predicted. The FEV1 is 2.22 L, 71% of predicted. FEV1/FVC ratio is normal at 0.77. There is no response to inhaled beta agonist. The patient's static lung volumes show mild reduction in vital capacity 3.42 L, 76% of predicted. Thoracic gas volume is 3.63 L, 98% of predicted. Total lung capacity is 6.36 L, 90% of predicted. Residual volume is 2.95 L, 125%. Patient is mildly increased. The patient's gas transfer as measured by DLCO is within statistical norms at 26.99 mL per mmHg. The patient, however, after correction for alveolar volume is reduced to 72%. The patient's flow volume loop shows some difficulty with irregular flow but no fixedupper airway limitation is seen. Impression At this time is moderate air flow limitation without response to inhaled beta agonist. Mildly decreased gas transfer as measured by diffusing capacity of the lungs after correction for alveolar volume. Minimal gas trapping is present. Clinical correlation is required. Radiographic correlation may be helpful. Oxyhemoglobin saturation at rest intact and within normal limits. documented in this encounter Plan of Treatment Pending Results Name Type Priority Associated Diagnoses Date /Time Pulmonary Function Test -[facility]; Complete/Full PFT Routine Chronic obstructive pulmonary disease with acute exacerbation (CMS/HCC) 03/01/2017 10:08 AM REGIONAL PROGRAM MANAGER Scheduled Orders Name Type Priority Associated Diagnoses Orde r Schedule Pulmonary Function Test -[facility]; Complete/Full PFT Routine Chronic obstructive pulmonary disease with acute exacerbation (CMS/HCC) Once for 1 Occurrences starting 03/01/2017 until 03/01/2017 documented as of this encounter Visit Diagnoses Diagnosis Chronic obstructive pulmonary disease with acute exacerbation (HCC) documented in this encounter Care Teams Surg Tech Relationship Specialty Start Date End Date No, Physician PCP - General 02/18/17 03/03/17 documented as of this encounter
--- OUTSIDE RECORDS SUMMARY | 2024-03-22 20:47 | XMS_ITS | Encounter Summary ---
Author Organization [facility] Healthcare Address [address] [place] [address] Care Team Providers Care Digital Account Supervisor Name Role Phone No, Physician Primary Care Provider [phone] Encounter Details Date Type Department Care Team (Latest Contact Info) Description 12/06/2017 1:25 PM CDT - 12/06/2017 11:59 PM CDT Hospital Encounter [facility] [address] [place] [address] Kamlesh Ricardo MD [address], [place] [id number] Solitary pulmonary nodule Discharge Disposition: Discharge to home or self care Social History Tobacco Use Types Packs/Day Years Used Date Smoking Tobacco: Former Cigarettes Q uit: 09/17/2016 Smokeless Tobacco: Never Alcohol Use Standard Drinks/Week Comments Defer 0 (1 standard drink = 0.6 oz pur e alcohol) Sex and Gender Information Value Date Recorded Sex Assigned at Not on file Legal Sex Male 2:59 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 12/21/2013 1 meloxicam (MOBIC) 15 mg tablet Take 1 tablet (15 mg total) by mouth daily. 30 tablet 2 05/21/2017 1 oxyCODONE-acetam inophen (PERCOCET) 5-325 mg per [...] Procedure Name Priority Date/Time Associated Diagnosis Comments CT CHEST WO CONTRAST Schedule Routine, Read Routine (OP Routine) 12/06/2017 1:57 PM CDT Solitary pulmonary nodule documented in this encounter Results * CT Chest WO Contrast (12/06/2017 1:57 PM CDT) Anatomical Region Laterality Modality Body N/A Computed Tomogra phy 12/06/2017 2:15 PM CDT Impressions 12/06/2017 2:24 PM CDT ??IMPRESSION: There is a 1.9 cm sized spiculated lesions seen in the apical posterior segment of the left upper lobe only on the axial view. This probably represents pleural parenchymal scarring but I cannot exclude the possibility of it being a early carcinoma. ??It is amenable to CT-guided biopsy Loss of height of multiple mid and lower dorsal vertebrae likely in the basal osteopenic.. Electronically signed by: Meaghan Collins M.D. Narrative 12/06/2017 2:24 PM CDT RESULT: HISTORY: The patient 67-year-old male who presents with midsternal chest pain of one-month duration. TECHNIQUE: Axial images were obtained through the thorax without intravenous contrast administration and viewed both at mediastinal and lung window settings. ??Following this coronal and sagittal reconstructions were performed. FINDINGS: Images at lung window settings reveals a spiculated lesion in the apical posterior segment of the left upper lobe measuring 1.9 x 1.4 cm in size. ??This is seen on axial image 17-19. ??It is not seen on the coronal images. ??No calcification or cavitation. ??The remainder of the lungs are clear with no other lung nodules or infiltrates. Minimal hypostatic changes at both bases are seen of no significance. Images at mediastinal window settings reveal the heart to be normal in size. ??There is no mediastinal lymph adenopathy. ??Tiny subcentimeter lymph nodes in the pretracheal location are likely reactive in nature. ??No pleural effusion. Limited axial images through the upper abdomen reveals multiple hypodense lesions in the liver which likely represent simple hepatic cysts of no significance. ??The visualized portion of spleen, adrenals, pancreas and upper kidneys is unremarkable. Images in the coronal plane adds no further information. ??The lesion in the apical posterior segment of the left upper lobe seen on the axial images is not seen on the coronal images. ??Limited sagittal sections through the dorsal spine reveals loss of height of the superior endplate of multiple mid and lower dorsal vertebrae, likely on the basis of osteopenia in keeping with the patient's age. Procedure Note Meaghan Collins MD - 12/06/2017 RESULT: HISTORY: The patient 67-year-old male who presents with midsternal chest pain of one-month duration. TECHNIQUE: Axial images were obtained through the thorax without intravenous contrast administration and viewed both at mediastinal and lung window settings. Following this coronal and sagittal reconstructions were performed. FINDINGS: Images at lung window settings reveals a spiculated lesion in the apical posterior segment of the left upper lobe measuring 1.9 x 1.4 cm in size. This is seen on axial image 17-19. It is not seen on the coronal images. No calcification or cavitation. The remainder of the lungs are clear with no other lung nodules or infiltrates. Minimal hypostatic changes at both bases are seen of no significance. Images at mediastinal window settings reveal the heart to be normal in size. There is no mediastinal lymph adenopathy. Tiny subcentimeter lymph nodes in the pretracheal location are likely reactive in nature. No pleural effusion. Limited axial images through the upper abdomen reveals multiple hypodense lesions in the liver which likely represent simple hepatic cysts of no significance. The visualized portion of spleen, adrenals, pancreas and upper kidneys is unremarkable. Images in the coronal plane adds no further information. The lesion in the apical posterior segment of the left upper lobe seen on the axial images is not seen on the coronal images. Limited sagittal sections through the dorsal spine reveals loss of height of the superior endplate of multiple mid and lower dorsal vertebrae, likely on the basis of osteopenia in keeping with the patient's age. IMPRESSION: IMPRESSION: There is a 1.9 cm sized spiculated lesions seen in the apical posterior segment of the left upper lobe only on the axial view. This probably represents pleural parenchymal scarring but I cannot exclude the possibility of it being a early carcinoma. It is amenable to CT-guided biopsy Loss of height of multiple mid and lower dorsal vertebrae likely in the basal osteopenic.. Electronically signed by: Meaghan Collins M.D. Kamlesh Ricardo MD IMG CT PROCEDURES Final Result documented in this encounter Visit Diagnoses Diagnosis Solitary pulmonary nodule documented in this encounter Care Teams Digital Account Supervisor Relationship Specialty Start Date End Date No, Physician PCP - General 03/08/17 12/15/17 documented as of this encounter
--- OUTSIDE RECORDS SUMMARY | 2024-03-22 20:47 | XMS_ITS | Encounter Summary ---
Author Organization [facility] Address [address] [place] [address] Care Team Providers Care Veterans Rehabilitation Counselor Name Role Phone No, Physician Primary Care Provider [phone] Reason for Visit * Reason Comments New Patient Pain Encounter Details Date Type Department Care Team (Late st Contact Info) Description 03/19/2017 3:15 PM PUMPER BREWERY Office Visit [facility] [address] [phone] [place] [address] [address] Chronic midline low back pain without sciatica (Primary Dx); Lumbar facet arthropathy (CMS/HCC) Social History Tobacco Use Types Packs/Day Years Used Date Smoking Tobacco: Former Cigarettes Q uit: 09/17/2016 Smokeless Tobacco: Never Alcohol Use Standard Drinks/Week Comments Defer 0 (1 standard drink = 0.6 oz pur e alcohol) Sex and Gender Information Value Date Recorded Sex Assigned at Not on file Legal Sex Male 2:59 AM PUMPER BREWERY Gender Identity Not on file Sexual Orientation Not on file documented as of this encounter Last Filed Vital Signs Vital Sign Reading Time Taken Comments Blood Pressure - - Pulse - - Temperature - - Respiratory Rate - - Oxygen Saturation - - Inhaled Oxygen Concentration - - Weight 97.5 kg (215 lb) 03/19/2017 3:28 PM PUMPER BREWERY Height 177.8 cm (5' 10 ) 03/19/2017 3:28 PM PUMPER BREWERY Body Mass Index 30.85 03/19/2017 3:28 PM PUMPER BREWERY documented in this encounter Ordered Prescriptions Prescription Sig Dispense Quantity Refills Last Filled Start Date End Date meloxicam (MOBIC) 15 mg tablet Take 1 tablet (15 mg total) by mouth daily for 30 doses. 30 tablet 1 03/19/2017 04/18/2017 documented in this encounter Progress Notes * Remy Solis MD - 03/19/2017 3:15 PM CST Images from the original note were not included. NEW PATIENT VISIT Subjective CHIEF COMPLAINT He had concerns including Pain of the Lumbar Spine and New Patient. HISTORY OF PRESENT ILLINESS Back pain 67-year-old gentleman presents for evaluation of back pain. He tells me that at the age of about 47suggest about 20 or so years ago he sustained a seizure and fell and sustained what was told to himwas a fracture. The fracture was treated nonsurgically seemingly with a brace and subsequently healed but led foundation for chronic low back problem with which she has been suffering intermittently t hrough the years recently the pain has become constant and therefore this visit most of the reported pain is in the midline at the thoracolumbar junction maybe almost on the thoracic side of the thoracolumbar junction is no radiation of this pain down the lower extremities no tingling numbness weakness of lower extremities no bladder or bowel dysfunction. Sometimes earlier this year in June he had an MRI scan done by his primary care physician after which he was sent to some physical therapy. Before that 2-3 years ago also he went through similar course of physical therapy other than that notreatment no medication no injections. Currently pain is constant getting aggravated with almost anything including bending has main problem is he cannot do anything physical. 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 Past medical history is negative for any major medicalproblems except for history of recently diagnosed skin cancer on the face for which she is anticipat ing surgery in the near future. Pain Assessment Pain Assessment: 0-10 Pain Score: 8 Pain Location: Back (Lumbar) Pain Descriptors: Aching, Penetrating, Radiating, Nagging, Stabbing Pain Frequency: Intermittent Pain Onset: Ongoing Clinical Progression: Gradually worsening PAST MEDICAL HISTORY He has a past medical history of COPD (chronic obstructive pulmonary disease) (CMS/HCC); Headache; and Seizures (CMS/HCC). PAST SURGICAL HISTORY He has a past surgical history that includes Hernia repair. MEDICATIONS He has a current medication list which includes the following prescription(s): atorvastatin, oxycodone-acetaminophen, carbamazepine er, meloxicam, and ventolin hfa. ALLERGIES He has No Known Allergies. SOCIAL HISTORY He reports that he quit smoking about 6 months ago. He has never used smokeless tobacco. Alcohol use questions deferred to the physician. Drug use questions deferred to the physician. FAMILY HISTORY His family history is not on file. REVIEW OF SYSTEMS Review of Systems Constitutional: Negative for activity change, appetite change and chills. HENT: Negative for congestion. Eyes: Negative for discharge. Respiratory: Negative for apnea, choking and chest tightness. Cardiovascular: Negative for chest pain and leg swelling. Gastrointestinal: Negative for abdominal pain. Genitourinary: Negative for dysuria. Musculoskeletal: Positive for back pain. Negative for arthralgias and neck pain. Neurological: Negative for headaches. Hematological: Negative for adenopathy. Objective PHYSICAL EXAM Ht 177.8 cm (5' 10 ) Wt 97.5 kg (215 lb) BMI 30.85 kg/m?? Ortho Exam Physical examination shows 67-year-old male BMI of 30. Thoracolumbar spine is examined finding midline tenderness at the thoracolumbar junction mild amount of paraspinous muscle spasm is restricting him a little bit but not bad he has paucity of lower extremity signs or symptoms. He walks fine is straight leg sign is negative sensory motor reflex exam is normal no atrophy no pathological reflexes. Peripheral circulation is adequate. REVIEW OF X-RAYS/STUDIES/LABS Workup available for review was a lumbar MRI scan is MRI scan was done June of this year and was done at [facility]. I have personally seen interpreted this MRI scan and also seen the radiologist's report of it. I see early minor degenerative disc disease at the level of L4-5 associated with an HIZ. Beyond that he has some facet arthropathy at L4-5 without stenosis. Alignment is satisfactory rest of the spine appears normal on this MRI scan done earlier this year. I do notsee any evidence of old or new compression fractures but he does have a history of compression fracture in the past. Assessment/Plan Humza was seen today for new patient and pain. Diagnoses and all orders for this visit: Chronic midline low back pain without sciatica Lumbar facet arthropathy Other orders - meloxicam (MOBIC) 15 mg tablet; Take 1 tablet (15 mg total) by mouth daily for 30 doses. Clinical evaluation suggest chronic lumbago without sciatica related to facet arthropathy at L4-5 natural history of this thing is discussed I would not anticipate him needing any surgical intervention now or for that matter in the near future. I would suggest a home exercise program supplement that with some ice heat and nonsteroidal anti inflammatory medication of choice would in fact am calling him some meloxicam he can take a trial prescription if that works he can take it from his primary care physician if necessary I will see him back for follow-up in about 3 months or so to monitor hisprogress. Current working diagnosis axial low back pain related to early facet arthropathy lumbar spine. Plan As above Remy Solis MD ER BREWERY documented in this encounter Plan of Treatment Not on file documented as of this encounter Visit Diagnoses Diagnosis Chronic midline low back pain without sciatica- Primary Lumbar facet arthropathy Spondylosis of unspecified site without mention of myelopathy documented in this encounter Historical Medications * This list may reflect changes made after this encounter. carBAMazepine ER (CARBATROL) 300 mg 12 hr capsule daily 03/06/2017 oxyCODONE-acetami nophen (PERCOCET) 5-325 mg per tabletIndications :Pain Take 1 tablet by mouth. 01/10/2017 12/13/2020 atorvastatin (LIPITOR) 20 mg tablet 09/14/2013 12/13/2020 VENTOLIN HFA 90 mcg/actuation inhaler 02/04/2017 12/13/2020 added in this encounter Care Teams Veterans Rehabilitation Counselor Relationship Specialty Start Date End Date No, Physician PCP - General 03/08/17 12/15/17 documented as of this encounter
--- OUTSIDE RECORDS SUMMARY | 2024-03-22 20:47 | XMS_ITS | Encounter Summary ---
Author Organization [facility] Address [address] [place] [address] Phone Care Team Providers Care Employment Program Representative Name Role Phone Stephan Donald MD Primary Care Provide r Encounter Details Date Type Department Care Team (Late st Contact Info) Description 12/22/2020 Telephone [facility] Rheumatology [facility] Advanced Medicine [address]th [place] [address] [place] [id number] José Miguel Piedra MD [address] [place] [address] Social History Tobacco Use Types Packs/Day Years Used Date Smoking Tobacco: Former Cigarettes Q uit: 09/17/2016 Vaping Smokeless Tobacco: Former Alcohol Use Standard Drinks/Week Comments Defer 0 (1 standard drink = 0.6 oz pur e alcohol) Sex and Gender Information Value Date Recorded Sex Assigned at Not on file Legal Sex 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 Unable to reach patient directly so left voice message. CBC/CMP/ESR/CRP/C3/C4/SPEP normal. UA showed 1+ protein with normal urine protein/creatinine. 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
--- OUTSIDE RECORDS SUMMARY | 2024-03-22 20:47 | XMS_ITS | Encounter Summary ---
Author Organization [facility] Healthcare Address [address] [place] [address] Care Team Providers Care Egg Worker Name Role Phone Stephan Donald MD Primary Care Provide r Reason for Referral * Diagnostic Imaging (Routine) - Closed Specialty Diagnoses / Procedures Referred By Barney ruggiero Referred To Contact Radiology Diagnoses Solitary pulmonary nodule Procedures PET/CT FDG Skull to Thigh Kamlesh Ricardo MD Phone: tel: fax: Referral ID Status Reason Start Date Expiration Date Visits Re quested Visits Authorized [id number] Closed 12/06/2017 06/17/2019 2 2 Reason for Visit * Diagnostic Imaging (Routine) - Closed Specialty Diagnoses / Procedures Referred By Barney ruggiero Referred To Contact Radiology Diagnoses Solitary pulmonary nodule Procedures PET/CT FDG Skull to Thigh Kamlesh Ricardo MD Phone: tel: fax: Referral ID Status Reason Start Date Expiration Date Visits Re quested Visits Authorized [id number] Closed 12/06/2017 06/17/2019 2 2 Encounter Details Date Type Department Care Team (Latest Contact Info) Description 12/17/2017 8:31 AM CDT - 12/17/2017 11:59 PM CDT Hospital Encounter [facility] Imaging and Radiology [address] [place], [place] [id number] Kamlesh Ricardo MD [address] [place] [address] Solitary pulmonary nodule Discharge Disposition: Discharge to [...] on file Legal Sex 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 ??This could be followed with CT scanning in 3 months to evaluate for stability. Electronically signed by: Monty Yao M.D. Narrative 12/17/2017 9:15 PM CDT EXAM: PET/CT tumor skull to thigh DATE: 12/17/2017 8:30 AM CLINICAL HISTORY: Left upper lobe apical 1.9 cm spiculated lesion. TECHNIQUE: 47 minutes after the uneventful intravenous administration of 10.23 mCi fluorodeoxyglucose intravenously right antecubital fossa, PET/CT images were obtained from the skull base to the thighs. Noncontrast CT images were obtained in the same distribution, but are not diagnostic. ??Instead, there are use for attenuation correction and correlation purposes only. No prior PET/CT is available for comparison. ??Comparison is made to a 12/06/[address] scan. Fasting blood glucose level: 87. ??Liver reference SUV max of 3.2. FINDINGS: The previously identified area of distortion in the extreme apex of the left upper lobe does not show hypermetabolic FDG avidity. ??The 1.5 x 1.2 cm soft tissue density at the extreme left apex on image 49 has a SUV max of 1.3 and this is barely discernible on the PET images, and demonstrates less tracer uptake than blood pool. ??There is an approximate 10 mm AP window lymph node on image 70 having FDG uptake less than blood pool within SUV max of 2.1. ??A few other scattered mediastinal lymph nodes noted which are not hypermetabolic. No hypermetabolic hilar lymphadenopathy. There is an element of misregistration between the PET study and CT study in the neck due to patient motion. ??Given the limitations, the FDG uptake appears to be related to normal appearing tonsils and oral cavity uptake as a result of dentures. ??There are a few scattered nonspecific lymph nodes in the neck. ??No suspicious hypermetabolic lymphadenopathy. In the abdomen there are low dense non-FDG avid structures in the liver, likely related to cysts.. ??No FDG avid masses or lymphadenopathy in the abdomen. CT findings: Non-FDG avid retention cyst right maxillary sinus. Atelectatic changes both lung bases. ??Presumed postsurgical abdominal hernia repair. ??Calcific structures in the dependent portion of the urinary bladder of indeterminate etiology, possible bladder stones. Mild degenerative changes in the spine. Procedure Note Monty Yao MD - 12/17/2017 EXAM: PET/CT tumor skull to thigh DATE: 12/17/2017 8:30 AM CLINICAL HISTORY: Left upper lobe apical 1.9 cm spiculated lesion. TECHNIQUE: 47 minutes after the uneventful intravenous administration of 10.23 mCi fluorodeoxyglucose intravenously right antecubital fossa, PET/CT images were obtained from the skull base to the thighs. Noncontrast CT images were obtained in the same distribution, but are not diagnostic. Instead, there are use for attenuation correction and correlation purposes only. No prior PET/CT is available for comparison. Comparison is made to a 12/06/[address] scan. Fasting blood glucose level: 87. Liver reference SUV max of 3.2. FINDINGS: The previously identified area of distortion in the extreme apex of the left upper lobe does not show hypermetabolic FDG avidity. The 1.5 x 1.2 cm soft tissue density at the extreme left apex on image 49 has a SUV max of 1.3 and this is barely discernible on the PET images, and demonstrates less tracer uptake than blood pool. There is an approximate 10 mm AP window lymph node on image 70 having FDG uptake less than blood pool within SUV max of 2.1. A few other scattered mediastinal lymph nodes noted which are not hypermetabolic. No hypermetabolic hilar lymphadenopathy. There is an element of misregistration between the PET study and CT study in the neck due to patient motion. Given the limitations, the FDG uptake appears to be related to normal appearing tonsils and oral cavity uptake as a result of dentures. There are a few scattered nonspecific lymph nodes in the neck. No suspicious hypermetabolic lymphadenopathy. In the abdomen there are low dense non-FDG avid structures in the liver, likely related to cysts.. No FDG avid masses or lymphadenopathy in the abdomen. CT findings: Non-FDG avid retention cyst right maxillary sinus. Atelectatic changes both lung bases. Presumed postsurgical abdominal hernia repair. Calcific structures in the dependent portion of the urinary bladder of indeterminate etiology, possible bladder stones. Mild degenerative changes in the spine. IMPRESSION: The soft tissue density in the extreme left lung apex is not hypermetabolic and may relate to scarring. This could be followed with CT scanning in 3 months to evaluate for stability. Electronically signed by: Monty Yao M.D. Kamlesh Ricardo MD IMG PET PROCEDURES Elizabeth shane Result documented in this encounter Visit Diagnoses Diagnosis Solitary pulmonary nodule documented in this encounter Administered Medications Inactive Administered Medications - up to 3 most recent administrations Medication Order MAR Action Action Date Dose Rate Site f-18 fdg injection 10.23 millicurie 10.23 millicurie, intravenous, Once in imaging, radiopharmaceutical , Starting on Sat12/17/17 at 1215, For 1 dose Given 12/17/2017 8:37 AM CDT 10.23 millicuries Right Antecubital documented in this encounter Orders Medications Ordered That Buck ht Not Have Been Administered Count Last Ordered Date First Ordered Date f-18 fdg injection 10.23 millicurie 1 12/17 documented in this encounter Care Teams Egg Worker Relationship Specialty Start Date End Date Stephan Donald MD [phone] [address] PCP - General 12/16/17 documented as of this encounter
--- OUTSIDE RECORDS SUMMARY | 2024-03-22 20:47 | XMS_ITS | Encounter Summary ---
Author Organization [facility] Healthcare Address [address] [place] [address] Care Team Providers Care Electro Mechanical Technologist Name Role Phone No, Physician Primary Care Provider [phone] Encounter Details Date Type Department Care Team (Latest Contact Info) Description 03/01/2017 7:00 AM RAIL CAR OPERATOR - 03/01/2017 11:59 PM RAIL CAR OPERATOR Hospital Encounter [facility] Diagnostic Imaging [address] [place] [address] [place] [phone] [address] [place] [phone] [address] Obstructive chronic bronchitis without exacerbation (CMS/HCC) Discharge Disposition: Discharge to home or self care Social History Tobacco Use Types Packs/Day Years Used Date Smoking Tobacco: Never Assessed Sex and Gender Information Value Date Recorded Sex Assigned at Not on file Legal Sex Male 2:59 AM RAIL CAR OPERATOR Gender Identity Not on file Sexual Orientation [...] Procedure Name Priority Date/Time Associated Diagnosis Comments XR CHEST PA LATERAL 2 VIEWS Schedule Routine, Read Routine (OP Routine) 03/01/2017 7:33 AM RAIL CAR OPERATOR Obstructive chronic bronchitis without exacerbation (CMS/HCC) documented in this encounter Results * XR Chest Pa Lateral 2 Views (03/01/2017 7:33 AM RAIL CAR OPERATOR) Anatomical Region Laterality Modality Body, Chest N/A Computed Radiogr aphy Impressions 03/01/2017 8:30 AM RAIL CAR OPERATOR Mild left basilar atelectasis. T8 compression deformity. Electronically signed by: Paige Fink M.D. Narrative 03/01/2017 8:30 AM RAIL CAR OPERATOR RESULT: EXAMINATION: PA AND LATERAL CHEST RADIOGRAPHS Date: 03/01/2017 7:20 AM History: Shortness of breath, COPD Comparison: No prior radiographic examination is available for comparison. Findings: Mild streaky opacity involving the left lung base likely represents atelectasis. ??The right lung is free of acute peripheral opacities. ??There is no pneumothorax or pleural effusion. The heart size is normal. ??Faint calcifications are seen within the aortic arch. ??A mild to moderate mid thoracic vertebral body compression deformity likely involves T8. Procedure Note Paige Fink MD / ProviderVirginia MD - 03/01/2017 RESULT: EXAMINATION: PA AND LATERAL CHEST RADIOGRAPHS Date: 03/01/2017 7:20 AM History: Shortness of breath, COPD Comparison: No prior radiographic examination is available for comparison. Findings: Mild streaky opacity involving the left lung base likely represents atelectasis. The right lung is free of acute peripheral opacities. There is no pneumothorax or pleural effusion. The heart size is normal. Faint calcifications are seen within the aortic arch. A mild to moderate mid thoracic vertebral body compression deformity likely involves T8. IMPRESSION: Mild left basilar atelectasis. T8 compression deformity. Electronically signed by: Paige Fink M.D. Chris Castellon WOOLEN SUITING SHRINKER IMG XR PROCEDURES Final Result documented in this encounter Visit Diagnoses Diagnosis Obstructive chronic bronchitis without exacerbation (HCC) Obstructive chronic bronchitis without exacerbation documented in this encounter Care Teams Electro Mechanical Technologist Relationship Specialty Start Date End Date No, Physician PCP - General 02/18/17 03/03/17 documented as of this encounter
--- OUTSIDE RECORDS SUMMARY | 2024-03-22 20:47 | XMS_ITS | Encounter Summary ---
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 (All Locations) Referral ID Status Reason Start Date Expiration Date Visits Re quested Visits Authorized [id number] Closed 12/13/2020 01/12/2022 1 1 Encounter Details Date Type Department Care Team (Late st Contact Info) Description 12/13/2020 1:40 PM CDT Office Visit [facility] Cardiology [address] 8[address] [place] [address] [place] [address] Chong López MD [address] [facility] [place] [address] Atherosclerosis of [place] coronary artery without angina pectoris (Primary Dx); Primary hypertension; Hyperlipidemia, unspecified hyperlipidemia type Social History Tobacco Use Types Packs/Day Years Used Date Smoking Tobacco: Former Cigarettes Q uit: 09/17/2016 Vaping Smokeless Tobacco: Former Alcohol Use Standard Drinks/Week Comments Defer 0 (1 standard drink = 0.6 oz pur e alcohol) Sex and Gender Information Value Date Recorded Sex Assigned at Not on file Legal Sex Male 2:59 AM [employer] Gender Identity Not on file Sexual Orientation Not on file documented as of this encounter Last Filed Vital Signs Vital Sign Reading Time Taken Comments Blood Pressure 151/97 12/13/2020 2:05 PM CDT Pulse 79 12/13/2020 2:03 PM CDT Temperature 37.1 ??C (98.7 ??F) 12/13/2020 2:03 PM CD T Respiratory Rate - - Oxygen Saturation 95% 12/13/2020 2:03 PM CDT Inhaled Oxygen Concentration - - Weight 101.9 kg (224 lb 9.6 oz) 12/13/2020 2:03 PM CDT Height 177.8 cm (5' 10 ) 12/13/2020 2:03 PM CDT Body Mass Index 32.23 12/13/2020 2:03 PM CDT documented in this encounter Patient Instructions * Patient Instructions* Mora Li RN - 12/13/2020 1:40 PM CDT Our office number is [phone], Mora and Valerie are RN's Start Losartan 50mg daily for BP Start Atorvastatin 20mg daily for cholesterol Start Aspirin 81mg daily coated tablet Lab in a week given order for locally Fasting labs in 6 weeks week of 01/30/21 given order for locally Obtain echo PONCHO Return in 4 months Check BP twice a day, want BP <140/ consistently documented in this encounter Ordered Prescriptions Prescription Sig Dispense Quantity Refills Last Filled Start Date End Date losartan (COZAAR) 50 mg tablet Take 1 tablet (50 mg total) by mouth daily 30 tablet 11 12/13/2020 aspirin (Adult Low Dose Aspirin) 81 mg enteric coated tablet Take 1 tablet (81 mg total) by mouth daily 30 tablet 12/13/2020 05/24/2021 atorvastatin (LIPITOR) 20 mg tablet Take 1 tablet (20 mg total) by mouth daily 30 tablet 12/13/2020 12/20/2020 documented in this encounter Progress Notes * Omero Barnett MD PhD - 12/13/2020 1:40 PM CDT Images from the original note were not included. 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 Recio today in the [facility] today. The patient was recently admitted to [facility] 08/19-08/24/20 with petechial rash. Rheumatology and dermatology were both consulted and he was started on a short prednisone course given c/f small vessel vasculitis. He was noted to have bloody diarrhea as well as OSH prior to transfer to [facility] treated with levaquin/flagyl. Given c/f bowel involvement of vasculitis he was treated with steroid course. He is also known to have longstanding seizure disorder and is maintained on carbamazepine and depakote without recent exacerbation. During this hospitalization his ACEi was converted from quinapril to lisinopril and he was continued on home HCTZ. Since this most recent hospitalization he notes his blood pressures have been well controlled in the 140-160/80's range, weight remains stable in the 92-95kg range. On discussion, the patient denies CP/pressure, SOB, TURPIN, PND, orthopnea, GAIL, palpitations, cyanosis, clubbing. In addition, denies fevers/chills/night sweats, cough, hematochezia/melena, nausea/vomiting, changes in mood, vision, motor/sensosry fxn or otherwise. Allergies: No Known Allergies Current Medications: Outpatient Medications Prior to Visit Medication Sig Dispense Refill ??? aspirin 81 mg enteric coated tablet Take by mouth daily ??? atorvastatin (LIPITOR) 40 mg tablet atorvastatin 40 mg tablet TAKE 1 TABLET BY MOUTH EVERY DAY ??? carBAMazepine ER (CARBATROL) 300 mg 12 hr capsule daily ??? fluticasone propionate (FLONASE) 50 mcg/actuation nasal spray fluticasone propionate 50 mcg/actuation nasal spray,suspension SHAKE LIQUID AND USE 1 SPRAY IN EACH NOSTRIL EVERY DAY ??? hydroCHLOROthiazide (HYDRODIURIL) 25 mg tablet 25 mg daily ??? loratadine (CLARITIN) 10 mg tablet Take 10 mg by mouth daily as needed ??? multivit with minerals/lutein (MULTIVITAMIN 50 PLUS ORAL) Take by mouth ??? rOPINIRole (REQUIP) 0.5 mg tablet ropinirole 0.5 mg tablet TAKE 1 TABLET BY MOUTH EVERY NIGHT AT BEDTIME ??? tiotropium bromide (SPIRIVA RESPIMAT) 2.5 mcg/actuation inhaler Spiriva Respimat 2.5 mcg/actuation solution for inhalation INHALE 2 PUFFS PO QD ??? tiotropium-olodateroL (STIOLTO) 2.5-2.5 mcg/actuation inhaler Stiolto Respimat 2.5 mcg-2.5 mcg/actuation solution for inhalation ??? valproate (DEPAKENE) 250 mg capsule valproic acid 250 mg capsule TK 2 CS PO QAM AND 2 CS PO AT NOON AND 5PM THEN 2 CS PO QHS ??? acetaminophen-codeine (TYLENOL with CODEINE #3) 300-30 mg per tablet acetaminophen 300 mg-codeine 30 mg tablet TAKE ONE TABLET BY MOUTH THREE TIMES A DAY NEEDED (Patient not taking: Reported on 12/13/2020) ??? meloxicam (MOBIC) 15 mg tablet Take 1 tablet (15 mg total) by mouth daily. (Patient not taking:Reported on 12/13/2020) 30 tablet 2 ??? pantoprazole DR (PROTONIX) 40 mg EC tablet Take 1 tablet (40 mg total) by mouth daily (Patient not taking: Reported on 12/13/2020) 30 tablet 0 ??? atorvastatin (LIPITOR) 20 mg tablet (Patient not taking: Reported on 12/13/2020) ??? benzonatate (TESSALON) 100 mg capsule benzonatate 100 mg capsule TK 1 C PO TID FOR 10 DAYS (Patient not taking: Reported on 12/13/2020) ??? bisacodyl EC (DULCOLAX EC) 5 mg EC tablet bisacodyl 5 mg tablet,delayed release TK 6 TS PO AT 8AM ON 10/15/19 (Patient not taking: Reported on 12/13/2020) ??? diclofenac DR (VOLTAREN) 50 mg EC tablet diclofenac sodium 50 mg tablet,delayed release (Patient not taking: Reported on 12/13/2020) ??? dicyclomine (BENTYL) 20 mg tablet dicyclomine 20 mg tablet TAKE 1 TABLET BY MOUTH THREE TIMES DAILY NEEDED ??? diphenoxylate-atropine (LomotiL) 2.5-0.025 mg per tablet Lomotil 2.5 mg- 0.025 mg tablet Take 1 tablet as needed by oral route. (Patient not taking: Reported on 12/13/2020) ??? esomeprazole DR (NexIUM) 40 mg capsule esomeprazole magnesium 40 mg capsule,delayed release TAKE 1 CAPSULE BY MOUTH EVERY DAY NEEDED (Patient not taking: Reported on 12/13/2020) ??? HYDROcodone bitartrate (Zohydro ER) 10 mg capsule, oral only, ER 12hr Zohydro ER 10 mg capsule,oral only,extended release (Patient not taking: Reported on 12/13/2020) ??? HYDROcodone-acetaminophen (NORCO) 5-325 mg per tablet hydrocodone 5 mg- acetaminophen 325 mg tablet (Patient not taking: Reported on 12/13/2020) ??? ibuprofen (ADVIL,MOTRIN) 800 mg tablet ibuprofen 800 mg tablet TK 1 T PO TID (Patient not taking: Reported on 12/13/2020) ??? meclizine (ANTIVERT) 25 mg tablet meclizine 25 mg tablet TK 1 T PO Q 8 H PRN (Patient not taking: Reported on 12/13/2020) ??? meloxicam (MOBIC) 7.5 mg tablet meloxicam 7.5 mg tablet (Patient not taking: Reported on 12/13/2020) ??? metroNIDAZOLE (FLAGYL) 500 mg tablet metronidazole 500 mg tablet TAKE 1 TABLET BY MOUTH EVERY 8 HOURS (Patient not taking: Reported on 12/13/2020) ??? mupirocin (BACTROBAN) 2 % ointment mupirocin 2 % topical ointment (Patient not taking: Reportedon 12/13/2020) ??? naproxen (NAPROSYN) 500 mg tablet naproxen 500 mg tablet TAKE 1 TABLET BY MOUTH TWICE DAILY WITH FOOD (Patient not taking: Reported on 12/13/2020) ??? wejrcfya-xvtdsxztb-kiyBIRLVvtwud (MAXITROL) 3.5mg/mL-10,000 unit/mL-0.1 % ophthalmic yiymxsojdabvitayrx-clklibluz-ypzmzpnm 3.5 mg/mL-10,000 unit/mL-0.1% eye drops INSTILL 1 DROP IN THE LEFT EYE QID FOR 7 DAYS (Patient not taking: Reported on 12/13/2020) ??? nortriptyline (PAMELOR) 25 mg capsule nortriptyline 25 mg capsule TK ONE C PO QD (Patient not taking: Reported on 12/13/2020) ??? ondansetron ODT (ZOFRAN-ODT) 4 mg disintegrating tablet ondansetron 4 mg disintegrating tablet (Patient not taking: Reported on 12/13/2020) ??? oxyCODONE-acetaminophen (PERCOCET) 5-325 mg per tablet Take 1 tablet by mouth. (Patient not taking: Reported on 12/13/2020) ??? prednisoLONE acetate (PRED FORTE) 1 % ophthalmic suspension prednisolone acetate 1 % eye drops,suspension (Patient not taking: Reported on 12/13/2020) ??? predniSONE (DELTASONE) 20 mg tablet prednisone 20 mg tablet ??? quinapriL (ACCUPRIL) 10 mg tablet quinapril 10 mg tablet TK 1 T PO QD (Patient not taking: Reported on 12/13/2020) ??? sertraline (ZOLOFT) 50 mg tablet (Patient not taking: Reported on 12/13/2020) ??? tiZANidine (ZANAFLEX) 2 mg tablet tizanidine 2 mg tablet TK 1 OR 2 PRN TID (Patient not taking: Reported on 12/13/2020) ??? triamcinolone (KENALOG) 0.1 % cream triamcinolone acetonide 0.1 % topical cream APPLY LIGHTLY TO TO THE AFFECTED AREA DAILY (Patient not taking: Reported on 12/13/2020) ??? triamcinolone (KENALOG) 0.1 % ointment triamcinolone acetonide 0.1 % topical ointment (Patient not taking: Reported on 12/13/2020) ??? varenicline (CHANTIX) 1 mg tablet Chantix Continuing Month Box 1 mg tablet (Patient not taking:Reported on 12/13/2020) ??? VENTOLIN HFA 90 mcg/actuation inhaler (Patient not taking: Reported on 12/13/2020) No facility-administered medications prior to visit. Social History: Social History Socioeconomic History ??? Marital status: Spouse name: Not on file ??? Number of children: Not on file ??? Years of education: Not on file ??? Highest education level: Not on file Occupational History ??? Not on file Tobacco Use ??? Smoking status: Former Smoker Types: Vaping, Cigarettes Quit date: 09/17/2016 Years since quittin.2 ??? Smokeless tobacco: Former User Vaping Use ??? Vaping Use: Former Substance and Sexual Activity ??? Alcohol use: Defer ??? Drug use: Defer ??? Sexual activity: Not on file Other Topics Concern ??? Not on file Social History Narrative ??? Not on file Social Determinants of Health Financial Resource Strain: ??? Difficulty of Paying Living Expenses: Not on file Food Insecurity: ??? Worried About Running Out of Food in the Last Year: Not on file ??? Ran Out of Food in the Last Year: Not on file Transportation Needs: ??? Lack of Transportation (Medical): Not on file ??? Lack of Transportation (Non-Medical): Not on file Physical Activity: ??? Days of Exercise per Week: Not on file ??? Minutes of Exercise per Session: Not on file Stress: ??? Feeling of Stress : Not on file Social Connections: ??? Frequency of Communication with Friends and Family: Not on file ??? Frequency of Social Gatherings with Friends and Family: Not on file ??? Attends Taoism Services: Not on file ??? Active Member of Clubs or Organizations: Not on file ??? Attends Club or Organization Meetings: Not on file ??? Marital Status: Not on file Intimate Partner Violence: ??? Fear of Current or Ex-Partner: Not on file ??? Emotionally Abused: Not on file ??? Physically Abused: Not on file ??? Sexually Abused: Not on file Past Medical History: Past Medical History: Diagnosis Date ??? COPD (chronic obstructive pulmonary disease) (CMS/HCC) (HCC) ??? Headache ??? Seizures (CMS/HCC) (HCC) Past Surgical History: Past Surgical History: Procedure Laterality Date ??? HERNIA REPAIR Family History: Family History Problem Relation Age of Onset ??? No Known Problems Mother ??? No Known Problems Father Physical Examination: BP 151/97 (BP Location: Right arm, Patient Position: Sitting) Pulse 79 Temp 37.1 ??C (98.7 ??F)(Oral) Ht 177.8 cm (5' 10 ) Wt 101.9 kg (224 lb 9.6 oz) SpO2 95% BMI 32.23 kg/m?? - Gen: AAOx4, NAD. - HEENT: PERRL, EOMI, no pallor, anicteric sclera - Neck: No JVD, midline trachea, no carotid artery bruit, no thyromegally, no lymphadenopathy. - Chest: normal breathing movements. - Resp: Clear bilateral air entry, no wheezing or crackles. - CV: RRR, no M/R/G, pulses 2+ bilaterally. - GI: Soft lax, not distended, no tenderness, no organomegaly, +BS - LE: no GAIL; no cyanosis, clubbing - Skin: No ulcers or skin rash noticed. Laboratory Data: [facility] 2017: non-obstructive CAD TTE 2017: normal LV/RV size and function, mild MR/TR Assessment and Plan: Essential HTN Obesity (BMI 30-35 kg/m2) Non-obstructive CAD Mixed Hyperlipidemia The patient is well compensated and without significant symptom burden. We will start the patient losartan 50 qD for afterload reduction, we will restart ASA 81 qD and Atorvastatin 20 qHS given a h/onon-obstructive CAD. We will repeat basic labs in one week. We will repeat TTE as well to re-assessLV function as he has not had an echocardiographic evaluation since 2017. The patient endorsed continued efforts at adhering to a heart healthy diet following lengthy discussion. In addition, we discussed once again continued efforts toward improving exercise habits including adequate weekly aerobic exercise. We will see the patient back in 4 months, and also advised to call sooner if there are any changes in clinical status or questions. We appreciate the opportunity to assume care of this patient. If we can be of additional assistance, please do not hesitate to contact us directly. -- Omero Barnett MD, PhD Fellow in Advanced Heart Failure and Cardiac Transplant Division of Cardiovascular Medicine Department of Medicine [facility] Cosigned by Chong López MD at 12/13/2020 5:16 PM CDT Associated attestation - Chong López MD - 12/13/2020 5:16 PM CDT I have seen and examined the patient. I agree with the findings and plan of care as documented in the resident/fellow's note. My total encounter time on 12/13/2020 was 45 minutes which was spent in the activities documented in the note. This includes time spent prior to the visit and after the visitin direct care of the patient. This time does not include time spent in any separately reportable services. documented in this encounter Plan of Treatment Scheduled Orders Name Type Priority Associated Diagnoses Orde r Schedule ECG 12 lead ECG Routine Atherosclerosis of [place] coronary artery without angina pectoris Ordered: 12/13/2020 Basic metabolic panel Lab Routine Primary hypertension Expected: 12/21/2020, Expires: 12/13/2021 Comprehensive metabolic panel Lab Routine Hyperlipidemia, unspecified hyperlipidemia type Expected: 01/30/2021, Expires: 12/13/2021 Lipid panel Lab Routine Hyperlipidemia, unspecified hyperlipidemia type Expected: 01/30/2021, Expires: 12/13/2021 documented as of this encounter Visit Diagnoses Diagnosis Atherosclerosis of [place] coronary artery without angina pectoris- Primary Primary hypertension Unspecified essential hypertension Hyperlipidemia, unspecified hyperlipidemia type documented in this encounter Discontinued Medications Medication Sig Discontinue Reason Start Date End Da te atorvastatin (LIPITOR) 20 mg tablet 09/14/2013 12/13/2020 benzonatate (TESSALON) 100 mg capsule benzonatate 100 mg capsule TK 1 C PO TID FOR 10 DAYS 01/25/2020 12/13/2020 bisacodyl EC (DULCOLAX EC) 5 mg EC tablet bisacodyl 5 mg tablet,delayed release TK 6 TS PO AT 8AM ON 10/15/19 12/13/[address] (VOLTAREN) 50 mg EC tablet diclofenac sodium 50 mg tablet,delayed release 01/11/2018 12/13/2020 dicyclomine (BENTYL) 20 mg tablet dicyclomine 20 mg tablet TAKE 1 TABLET BY MOUTH THREE TIMES DAILY NEEDED 12/13/2020 diphenoxylate-atropine (LomotiL) 2.5-0.025 mg per tablet Lomotil 2.5 mg-0.025 mg tablet Take 1 tablet as needed by oral route. 12/21/2013 12/13/[address] (NexIUM) 40 mg capsule esomeprazole magnesium 40 mg capsule,delayed release TAKE 1 CAPSULE BY MOUTH EVERY DAY NEEDED 12/13/2020 HYDROcodone bitartrate (Zohydro ER) 10 mg capsule, oral only, ER 12hr Zohydro ER 10 mg capsule, oral only,extended release 12/13/2020 HYDROcodone-acetaminop hen (NORCO) 5-325 mg per tablet hydrocodone 5 mg-acetaminophen 325 mg tablet 12/13/2020 ibuprofen (ADVIL,MOTRIN) 800 mg tablet ibuprofen 800 mg tablet TK 1 T PO TID 12/13/2020 meclizine (ANTIVERT) 25 mg tablet meclizine 25 mg tablet TK 1 T PO Q 8 H PRN 12/13/2020 metroNIDAZOLE (FLAGYL) 500 mg tablet metronidazole 500 mg tablet TAKE 1 TABLET BY MOUTH EVERY 8 HOURS 12/13/2020 meloxicam (MOBIC) 7.5 mg tablet meloxicam 7.5 mg tablet 12/13/2020 mupirocin (BACTROBAN) 2 % ointment mupirocin 2 % topical ointment 12/13/2020 naproxen (NAPROSYN) 500 mg tablet naproxen 500 mg tablet TAKE 1 TABLET BY MOUTH TWICE DAILY WITH FOOD 12/13/2020 rtvcozmp-tpwbgghne-egt AMETHasone (MAXITROL) 3.5mg/mL-10,000 unit/mL-0.1 % ophthalmic suspension nqakwquk-vamlrkrrs-mkv ameth 3.5 mg/mL-10,000 unit/mL-0.1% eye drops INSTILL 1 DROP IN THE LEFT EYE QID FOR 7 DAYS 12/13/2020 ondansetron ODT (ZOFRAN-ODT) 4 mg disintegrating tablet ondansetron 4 mg disintegrating tablet 12/13/2020 oxyCODONE-acetaminophe n (PERCOCET) 5-325 mg per tabletIndications:Pain Take 1 tablet by mouth. 01/10/2017 12/13/2020 nortriptyline (PAMELOR) 25 mg capsule nortriptyline 25 mg capsule TK ONE C PO QD 12/13/2020 prednisoLONE acetate (PRED FORTE) 1 % ophthalmic suspension prednisolone acetate 1 % eye drops,suspension 12/13/2020 predniSONE (DELTASONE) 20 mg tablet prednisone 20 mg tablet 12/13/2020 quinapriL (ACCUPRIL) 10 mg tablet quinapril 10 mg tablet TK 1 T PO QD 12/13/2020 sertraline (ZOLOFT) 50 mg tablet 09/28/2020 12/13/2020 tiZANidine (ZANAFLEX) 2 mg tablet tizanidine 2 mg tablet TK 1 OR 2 PRN TID 12/13/2020 triamcinolone (KENALOG) 0.1 % cream triamcinolone acetonide 0.1 % topical cream APPLY LIGHTLY TO TO THE AFFECTED AREA DAILY 12/13/2020 triamcinolone (KENALOG) 0.1 % ointment triamcinolone acetonide 0.1 % topical ointment 12/13/2020 varenicline (CHANTIX) 1 mg tablet Chantix Continuing Month Box 1 mg tablet 12/13/2020 VENTOLIN HFA 90 mcg/actuation inhaler 02/04/2017 12/13/2020 atorvastatin (LIPITOR) 40 mg tablet atorvastatin 40 mg tablet TAKE 1 TABLET BY MOUTH EVERY DAY Dose adjustment 09/26/2016 12/13/2020 aspirin 81 mg enteric coated tablet Take by mouth daily Dose adjustment 02/08/2020 12/13/2020 documented as of this encounter Historical Medications * This list may reflect changes made after this encounter. multivit with minerals/lutein (MULTIVITAMIN 50 PLUS ORAL) Take by mouth 7 fluticasone propionate (FLONASE) 50 mcg/actuation nasal spray fluticasone propionate 50 mcg/actuation nasal spray,suspension SHAKE LIQUID AND USE 1 SPRAY IN EACH NOSTRIL EVERY DAY 0 hydroCHLOROthiazide (HYDRODIURIL) 25 mg tablet 25 mg daily 1 loratadine (CLARITIN) 10 mg tablet Take 10 mg by mouth daily as needed 1 rOPINIRole (REQUIP) 0.5 mg tablet ropinirole 0.5 mg tablet TAKE 1 TABLET BY MOUTH EVERY NIGHT AT BEDTIME 0 tiotropium-olodater oL (STIOLTO) 2.5-2.5 mcg/actuation inhaler Stiolto Respimat 2.5 mcg-2.5 mcg/actuation solution for inhalation 0 valproate (DEPAKENE) 250 mg capsule valproic acid 250 mg capsule TK 2 CS PO QAM AND 2 CS PO AT NOON AND 5PM THEN 2 CS PO QHS acetaminophen-codei ne (TYLENOL with CODEINE #3) 300-30 mg per tablet acetaminophen 300 mg-codeine 30 mg tablet TAKE ONE TABLET BY MOUTH THREE TIMES A DAY NEEDED 12/17/19 21 aspirin 81 mg enteric coated tablet Take by mouth daily 02/08/20 2 0 12/14/19 21 benzonatate (TESSALON) 100 mg capsule benzonatate 100 mg capsule TK 1 C PO TID FOR 10 DAYS 0 12/14/19 21 bisacodyl EC (DULCOLAX EC) 5 mg EC tablet bisacodyl 5 mg tablet,delayed release TK 6 TS PO AT 8AM ON 10/15/19 12/14/[address] (VOLTAREN) 50 mg EC tablet diclofenac sodium 50 mg tablet,delayed release 8 12/14/19 21 dicyclomine (BENTYL) 20 mg tablet dicyclomine 20 mg tablet TAKE 1 TABLET BY MOUTH THREE TIMES DAILY NEEDED 12/14/19 21 diphenoxylate-atrop ine (LomotiL) 2.5-0.025 mg per tablet Lomotil 2.5 mg-0.025 mg tablet Take 1 tablet as needed by oral route. 4 12/14/[address] (NexIUM) 40 mg capsule esomeprazole magnesium 40 mg capsule,delayed release TAKE 1 CAPSULE BY MOUTH EVERY DAY NEEDED 12/14/19 HYDROcodone bitartrate (Zohydro ER) 10 mg capsule, oral only, ER 12hr Zohydro ER 10 mg capsule, oral only,extended release 12/14/19 HYDROcodone-acetami nophen (NORCO) 5-325 mg per tablet hydrocodone 5 mg-acetaminophen 325 mg tablet 12/14/19 21 ibuprofen (ADVIL,MOTRIN) 800 mg tablet ibuprofen 800 mg tablet TK 1 T PO TID 12/14/19 meclizine (ANTIVERT) 25 mg tablet meclizine 25 mg tablet TK 1 T PO Q 8 H PRN 12/14/19 metroNIDAZOLE (FLAGYL) 500 mg tablet metronidazole 500 mg tablet TAKE 1 TABLET BY MOUTH EVERY 8 HOURS 12/14/19 mupirocin (BACTROBAN) 2 % ointment mupirocin 2 % topical ointment 12/14/19 naproxen (NAPROSYN) 500 mg tablet naproxen 500 mg tablet TAKE 1 TABLET BY MOUTH TWICE DAILY WITH FOOD 12/14/19 neomycin-polymyxin- dexAMETHasone (MAXITROL) 3.5mg/mL-10,000 unit/mL-0.1 % ophthalmic suspension neomycin-polymyxin- dexameth 3.5 mg/mL-10,000 unit/mL-0.1% eye drops INSTILL 1 DROP IN THE LEFT EYE QID FOR 7 DAYS 12/14/19 nortriptyline (PAMELOR) 25 mg capsule nortriptyline 25 mg capsule TK ONE C PO QD 12/14/19 21 ondansetron ODT (ZOFRAN-ODT) 4 mg disintegrating tablet ondansetron 4 mg disintegrating tablet 12/14/19 21 prednisoLONE acetate (PRED FORTE) 1 % ophthalmic suspension prednisolone acetate 1 % eye drops,suspension 12/14/19 21 predniSONE (DELTASONE) 20 mg tablet prednisone 20 mg tablet 12/14/19 21 quinapriL (ACCUPRIL) 10 mg tablet quinapril 10 mg tablet TK 1 T PO QD 12/14/19 21 sertraline (ZOLOFT) 50 mg tablet 12/14/19 21 tiotropium bromide (SPIRIVA RESPIMAT) 2.5 mcg/actuation inhaler Spiriva Respimat 2.5 mcg/actuation solution for inhalation INHALE 2 PUFFS PO QD 05/25/19 22 tiZANidine (ZANAFLEX) 2 mg tablet tizanidine 2 mg tablet TK 1 OR 2 PRN TID 12/14/19 21 triamcinolone (KENALOG) 0.1 % ointment triamcinolone acetonide 0.1 % topical ointment 12/14/19 21 triamcinolone (KENALOG) 0.1 % cream triamcinolone acetonide 0.1 % topical cream APPLY LIGHTLY TO TO THE AFFECTED AREA DAILY 12/14/19 21 varenicline (CHANTIX) 1 mg tablet Chantix Continuing Month Box 1 mg tablet 12/14/19 21 meloxicam (MOBIC) 7.5 mg tablet meloxicam 7.5 mg tablet 12/14/19 21 atorvastatin (LIPITOR) 40 mg tablet atorvastatin 40 mg tablet TAKE 1 TABLET BY MOUTH EVERY DAY 7 12/14/19 21 added in this encounter Additional Health Concerns 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
--- OUTSIDE RECORDS SUMMARY | 2024-03-22 20:47 | XMS_ITS | Encounter Summary ---
Author Organization [facility] Healthcare Address [address] [place] [address] Care Team Providers Care Red Cap Name Role Phone Stephan Donald MD Primary Care Provide r Reason for Visit * Reason Comments Black or Bloody Stool Encounter Details Date Type Department Care Team (Latest Contact Info) Description 08/18/2020 11:13 PM CDT - 08/24/2020 4:46 PM CDT Hospital Encounter [facility] [address] [place] [address] Román Hernandez MD [address] [place] [address] Giovani Rodriguez MD [address] [place] [address] Loren Carmona MD [address] [facility] [id number] [place] [address] Petechiae (Primary Dx); Colitis; Renal lesion Discharge Disposition: Discharge to home or self care Social History Tobacco Use Types Packs/Day Years Used Date Smoking Tobacco: Former Cigarettes Q uit: 09/17/2016 Smokeless Tobacco: Never Alcohol Use Standard Drinks/Week Comments Defer 0 (1 standard drink = 0.6 oz pur e alcohol) Sex and Gender Information Value Date Recorded Sex Assigned at Not on file 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 Gender Identity Not on file Sexual Orientation Not on file documented as of this encounter Last Filed Vital Signs Vital Sign Reading Time Taken Comments Blood Pressure 128/72 08/24/2020 1:40 PM CDT Pulse 79 08/24/2020 1:40 PM CDT Temperature 37 ??C (98.6 ??F) 08/24/2020 1:40 PM CDT Respiratory Rate 18 08/24/2020 1:40 PM CDT Oxygen Saturation 92% 08/24/2020 1:40 PM CDT Inhaled Oxygen Concentration - - Weight 94.3 kg (208 lb) 08/24/2020 6:15 AM CDT Height 177.8 cm (5' 10 ) 08/18/2020 6:39 PM CDT Body Mass Index 29.84 08/18/2020 6:39 PM CDT documented in this encounter Discharge Diagnoses Diagnosis Arteritis, unspecified (CMS/HCC) (HCC) - ARTERITIS, UNSPECIFIED Arteritis, unspecified Chronic obstructive pulmonary disease with (acute) exacerbation (HCC) - CHRONIC OBSTRUCTIVE PULMONARY DISEASE WITH (ACUTE) EXACERBATION Epilepsy, unspecified, not intractable, without status epilepticus (HCC) - EPILEPSY, UNSPECIFIED, NOT INTRACTABLE, WITHOUT STATUS EPILEPTICUS Diplopia - DIPLOPIA Essential (primary) hypertension - ESSENTIAL (PRIMARY) HYPERTENSION Unspecified essential hypertension Atherosclerotic heart disease of [place] coronary artery without angina pectoris - ATHEROSCLEROTIC HEART DISEASE OF [place] CORONARY ARTERY WITHOUT ANGINA PECTORIS Noninfective gastroenteritis and colitis, unspecified - NONINFECTIVE GASTROENTERITIS AND COLITIS, UNSPECIFIED Pruritus, unspecified - PRURITUS, UNSPECIFIED Other microscopic hematuria - OTHER MICROSCOPIC HEMATURIA Other specified abnormal immunological findings in serum - OTHER SPECIFIED ABNORMAL IMMUNOLOGICAL FINDINGS IN SERUM Obstructive sleep apnea (adult) (pediatric) - OBSTRUCTIVE SLEEP APNEA (ADULT) (PEDIATRIC) Unspecified osteoarthritis, unspecified site - UNSPECIFIED OSTEOARTHRITIS, UNSPECIFIED SITE Spontaneous ecchymoses - SPONTANEOUS ECCHYMOSES Anemia, unspecified - ANEMIA, UNSPECIFIED Contact with and (suspected) exposure to covid-19 - CONTACT WITH AND (SUSPECTED) EXPOSURE TO COVID-19 [facility] (current) use of non-steroidal anti-inflammatories (nsaid) - RETIREMENT (CURRENT) USE OF NON-STEROIDAL ANTI-INFLAMMATORIES (NSAID) Personal history of nicotine dependence - PERSONAL HISTORY OF NICOTINE DEPENDENCE documented in this encounter Discharge Summaries * Lashell Isaac MD - 08/24/2020 3:48 PM CDT Inpatient Discharge Summary BRIEF OVERVIEW Admitting Provider: Loren Carmona MD Discharge Provider: Loren Carmona MD Primary Care Physician at Discharge: Stephan Donald MD [phone] Admission Date: 08/18/2020 Discharge Date: 08/24/2020 Admission Location: [facility] Problems/Diagnoses: Principal Problem: Petechiae Active Problems: Chronic obstructive pulmonary disease with acute exacerbation (CMS/HCC) Resolved Problems: No resolved hospital problems. DETAILS OF HOSPITAL STAY Presenting Problem/History of Present Illness: Patient reports that beginning 07/23 he began to experience abdominal pain and non-bloody diarrhea almost daily associated with eating. Simultaneously also noted a petechial rash beginning on the dorsum of his bilateral feet. Reports that the rash progressively became more purple and extended caudally throughout the month, has associated pruritis but no ulceration. Pain is diffuse throughout lower abdomen and cramping. Denies nausea, vomiting, dysphagia. History of joint pain due to OA but no fevers, chills, LAD, monoarthritis, joint stiffness, conjunctivitis, skin tightening. Denies any melena or hemateuria throughout his course. For this problem went to OSH from 08/08-08/10 for these symptoms and there was diagnosed with colitis, was given levaquin and flagyl as well as triamcinolone for his rash, which improved pruritis. Lives in [place], no recent visit to farm, nature, no recent tick bites. Monogamous with one partner (). 40 years of 1 PPD smoking quit since 10 years ago, alcohol use every few months, no drug use. ?? Today he made eggs int he morning and ate them, subsequently had 3 bowel movements with bright red diarrhea that prompted presentation to [facility] ED. ?? On arrival to ED afebrile, HR 111, RR 18, BP 144/88, 95%, BMP wnl, leukocytosis to 15.3 (neutrophilpredominant), Hgb 15.2, Plt 433. INR 1.1, aPTT 32, denae negative. CT A/P with contrast was obtained which showed colitis at hepatic flexture with small volume simple free pelvic fluid. Also incidental finding of hyperdense left renal nodule. Started on Cipro/flagyl in the ED. Hospital Course: #Petechial rash Nonblanchable purpuric rash present on lower extremities since 07/23 (around time of diarrhea onset).Progressed from dorsum of feet to involve entire lower extremities, abdomen, and now upper extremities. WBC 15.3, Plt 433, Hgb 15.2, Eosinophil 0.2, Urine 2+ blood and 11-20 RBC. LDH wnl and haptoglobin elevated. Due to concern for vasculitis sent autoimmune work up showing ESR 31, CRP 47.8. JONNA 1:160 (speckled), dsDNA 6.0. C3/C4 wnl. RF and anti-BRAYAN neg. ANCA negative. UA w/ RBC. Cr 0.93. UPr/Cr99.2. HIV, hepatitis panel neg, GC neg, and stool culture neg for shiga toxin. BC's NGTD. Dermatology consulted and he underwent biopsy showing vasculitis negative for IgG, IgA, IgM, C3 and fibrinogen. 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 Dermatology also planning to follow up with patient in clinic. He was started on pred 90mg x2 (08/19, ) and decreased to pred 80mg qd (08/21-08/24) with significant improvement of rash. At discharge rheumatology recommended taper w/ 60x1wk, 40x1kw, 20x1wk, 10x1wk off, with PCP prophylaxis and PPI. ?? #Hematochezia #Anemia #Diarrhea Presenting with abdominal pain and diarrhea associated with eating for nearly a month, presented with new bloody diarrhea x3. Recent history of bloody diarrhea since 07/23. Went to OSH and received levaquin and flagyl for colitis. Suspect possible vasculitic involvement >> ischemic colitis >> AVM's/diverticular bleed. CT A/P 08/19: Colonic thickening at the hepatic flexure w/ small volume simple free pelvic fluid likely is colitis vs colon cancer. OSH ([place]) c- scope showed moderatesegmental inflammation in the proximal ascending colon. Colitis is erythematous, edematous, granular. No mucosal bleeding. Path results w/ slight neutrophilic infilatration of surface epithelium with some crypt abscesses. No significant distortion of the glandular architecture is present. No evidence of lamina propria fibrosis or glandular dropout. Reviewed CT a/p w/ contrast with radiology and all vasculature is patent. Do not recommend further imaging. Stool culture negative for shiga toxin.C. Diff neg. Due to concern for vasculitis patient was started on prednisone and subsequently had no additional bloody BMs. Hgb dropped from 15 on presenation to ~12 but remained stable subsequently. ?? #Seizure disorder Seizure free on current Sz meds for 30+ yrs, reports that he has been on same meds for about 28 years. Continued carbamazepine ER 600 BID and valproate??500 mg QID. During admission had some complaints of double vision that resolved spontaneously. Did order CTA head which showed no acute intracranial abnormality and no CT angiogram evidence of vasculitic process. Did also obtain depakote level whichwas 45. ? #HTN -Home quinapril 40??to??lisinopril 40 during hospitalization -Continued home??HCTZ 25 ?? #CAD OSH cath 2016 with mild CAD 25% stenosis of RCA, normal EF 70% -continued atorva. Held ASA for possible renal biopsy but resumed on discharge ?? #COPD 40 year pack per day smoking history, quit 10 years ago. - home stiolto -->anoro ellipta - fluticasone ?? #ANGLE Per patient, diagnosed with ANGLE several months ago but does not have CPAP at home yet. Working on insurance coverage. -Hospital-provided CPAP at night, will need to follow up outpatient for home unit Active Issues Requiring Follow-up: Vasculitis: follow up with rheumatology and dermatology Renal cyst: found incidentally on CT and renal US, will need follow up imaging in 6 months Test Results Pending at Discharge: Pending Labs Order Current Status Calprotectin, fecal In process Operative Procedures Performed: Other Procedures: none Pertinent Test Results: CT Abdomen Pelvis W Contrast [[id number]] 1. ??Colonic thickening at the hepatic flexure with small volume simple free pelvic fluid likely is colitis. Differential consideration includes colon cancer. Recommend colonoscopy. 2. ??Hyperdense left renal nodule. Recommend follow up renal ultrasound in 6 months. Recommend follow up of the Incidental renal nodule Additional Imaging In 6 Months with renal ultrasound or MRI. US Kidney Complete [[id number]] Subcentimeter exophytic lesion in the interpolar region of the left kidney correlates with the CT finding and remains indeterminant although favored to be benign given lack of any convincing suspicious feature. Recommend follow up in 6-12 months. Discharge Details Physical Exam at Discharge: Discharge Condition: good Pulse: 79 Resp: 18 BP: 128/72 Temp: 37 ??C (98.6 ??F) Weight: 94.3 kg (208 lb) Pertinent Exam Findings at Discharge: CONS: Well-developed, laying in bed, no acute distress HEENT: NCAT. Anicteric sclera, noninjected conjunctiva. External ears normal. MMM. NECK: No tracheal deviation. CHEST: Atraumatic, normal contour. CARDIAC: Normal rate, regular rhythm. Normal S1/S2, no murmurs/rubs/gallops. No JVD. Equal pulses, cap refill <2sec. PULM: On RA. Normal WOB, speaking in full sentences. CTAB, no wheezes/rubs/rhonci. ABD: Atraumatic, nondistended. NABS, no abdominal bruits. Soft. Mildly tender to palpation throughout, rebound noted in RUQ. No guarding. EXT: WWP. No peripheral edema. 2+ b/l radial pulses. SKIN: Diffuse petechial rash worse over BLE, extending to abdomen and scattered over BUE. Some lesions palpable, now improving and business information manager in color NEURO: Aox3, moves all extremities spontaenously, PRRL, 2-3 beats of nystagmus bilaterally PSYCH: Euthymic, affect congruent. Discharge Disposition: Code Status at Discharge: Full Code Discharge Instructions: Activity Instructions Discharge activity: Resume normal activity Diet Instructions Adult Discharge Diet Diet Type: Return to previous diet Other Instructions Call provider for: Temperature -Temperature greater than 101 degrees F Call provider for: difficulty breathing or chest pain Call provider for: extreme fatigue Call provider for: hives Call provider for: persistent dizziness or light-headedness Call provider for: persistent nausea or vomiting Call provider for: redness, tenderness, or signs of infection (pain, swelling, redness, odor or green/yellow discharge around incision site) Call provider for: severe uncontrolled pain Call provider for: headache, visual disturbances, weakness and speech changes This is the earliest available follow up appointment with your PCP. Please bring this discharge paperwork, a list of home medications, your insurance card and photo ID to your appointment. Please arrive 15 minutes prior to your appointment and make sure you wear a mask. If you are unable to keep this appointment, it is very important you call to reschedule. Discharge Medications: Current Medications TAKE these medications atorvastatin 20 mg tablet Commonly known as: LIPITOR carBAMazepine ER 300 mg 12 hr capsule Commonly known as: CARBATROL meloxicam 15 mg tablet Take 1 tablet (15 mg total) by mouth daily. Commonly known as: MOBIC oxyCODONE-acetaminophen 5-325 mg per tablet Take 1 tablet by mouth. For: pain Commonly known as: PERCOCET pantoprazole DR 40 mg EC tablet Take 1 tablet (40 mg total) by mouth daily Commonly known as: PROTONIX predniSONE 20 mg tablet Take 3 tabs (60mg) daily for 7 days, then take 2 tabs (40mg) daily for 7 days, then take 1 tab (20mg) daily for 7 days, then take half tab (10mg) daily for 7 days, then stop. For: vasculitis Commonly known as: DELTASONE sulfamethoxazole-trimethoprim 400-80 mg per tablet Take 1 tablet by mouth daily for 21 days Commonly known as: BACTRIM Ventolin HFA 90 mcg/actuation inhaler Generic drug: albuterol HFA Outpatient Follow-Up: Future Appointments Date Time Provider Department [place] 11/25/2020 10:30 AM José Miguel Piedra MD [facility] Contact Information for Follow-ups Stephan Donald MD Specialty: Internal Medicine Relationship: PCP - General [address] [place] [address] Next Steps: Follow up Stephan Donald MD Specialty: Internal Medicine Relationship: PCP - General [address] [place] [address] Next Steps: Follow up Cosigned by Loren Carmona MD at 08/25/2020 5:49 PM CDT documented in this encounter Discharge Instructions * Discharge Instructions* Lashell Isaac MD - 08/24/2020 3:52 PM CDT You were admitted for bloody diarrhea and rash throughout your body. Here we suspected that you hada condition called small vessel vasculitis, which is an inflammation of blood vessels causing them to be leaky and produce bleeding symptoms. This can be triggered by an insult to the body such as a recent upper respiratory infection. However, we made sure to check for other causes of vasculitis including HIV, hepatitis, other autoimmune conditions such as lupus and rheumatoid arthritis, which were all negative or unremarkable. Your skin biopsy confirmed vasculitis but did not show positive staining for any specific antibodies. We had the rheumatologists weigh in on your condition and they agree that this was likely an isolated vasculitis without underlying rheumatological conditions. We treated you with steroids and your condition improved, we also monitored your blood count which dropped somewhat during the admission but not to the level of requiring transfusions. -You will finish a course of prednisone taper for a total of 1 month: please take 60mg daily for 7 days then take 40mg daily for 7 days, then 20mg daily for 7 days, then 10mg daily for 7 days. -While on the prednisone you will have immune suppression due to the steroids, and due to this we also will start you on a course of prophylactic antibiotics to prevent pneumonia. Please take 1 tab of bactrim a day for the duration that you are on greater than 20mg of steroids daily -The steroids also make you more susceptible to gastric irritation from your stomach acid, so we will also send you with a course of antiacids to prevent any gastric ulcers from developing during this time You will be scheduled for follow up with rheumatology to follow up on your condition, you were alsoscheduled for PCP follow up on September 01 at 1030. You had an incidental finding of a kidney nodule that needs to be re-imaged in 6 months. We will write this in your discharge summary so your PCP can follow this up with you * Appointments* Milady Greer RN - 08/24/2020 3:00 PM CDT This is the earliest appointment with your PCP, Please bring discharge paperwork with list of medicines, insurance card and photo ID to appointment. Please arrive at least 15 minutes early prior to appointment. If you are unable to keep this appointment, it is very important you call to reschedule. * Discharge Instr - Other Orders* Anna Lockhart RN - 08/19/2020 4:28 PM CDT This is the earliest available follow up appointment with your PCP. Please bring this discharge paperwork, a list of home medications, your insurance card and photo ID to your appointment. Please arrive 15 minutes prior to your appointment and make sure you wear a mask. If you are unable to keep this appointment, it is very important you call to reschedule. documented in this encounter Medications at Time of Discharge carBAMazepine ER (CARBATROL) 300 mg 12 hr capsule daily 03/06/2017 fluticasone propionate (FLONASE) 50 mcg/actuation nasal spray fluticasone propionate 50 mcg/actuation nasal spray,suspension SHAKE LIQUID AND USE 1 SPRAY IN EACH NOSTRIL EVERY DAY 10/28/2019 multivit with minerals/lutein (MULTIVITAMIN 50 PLUS ORAL) [...] 2.5 mcg-2.5 mcg/actuation solution for inhalation 06/04/2019 predniSONE (DELTASONE) 20 mg tabletIndication s:vasculitis Take 3 tabs (60mg) daily for 7 days, then take 2 tabs (40mg) daily for 7 days, then take 1 tab (20mg) daily for 7 days, then take half tab (10mg) daily for 7 days, then stop. 46 tablet 08/24/2020 1 sulfamethoxazole -trimethoprim (BACTRIM) 400-80 mg per tablet Take 1 tablet by mouth daily for 21 days 21 tablet 08/24/2020 1 aspirin 81 mg enteric coated tablet Take by mouth daily 02/08/2020 1 atorvastatin (LIPITOR) 20 mg tablet 09/14/2013 1 atorvastatin (LIPITOR) 40 mg tablet atorvastatin 40 mg tablet TAKE 1 TABLET BY MOUTH EVERY DAY 09/26/2016 1 benzonatate (TESSALON) 100 mg capsule benzonatate 100 mg capsule TK 1 C PO TID FOR 10 DAYS 01/25/[address] (VOLTAREN) 50 mg EC tablet diclofenac sodium 50 mg tablet,delayed release 01/11/2018 1 diphenoxylate-at ropine (LomotiL) 2.5-0.025 mg per [...] 02/04/2017 1 documented as of this encounter Ordered Prescriptions Prescription Sig Dispense Quantity Refills Last Filled Start Date End Date pantoprazole DR (PROTONIX) 40 mg EC tablet Take 1 tablet (40 mg total) by mouth daily 30 tablet 08/24/2020 predniSONE (DELTASONE) 20 mg tabletIndications: vasculitis Take 3 tabs (60mg) daily for 7 days, then take 2 tabs (40mg) daily for 7 days, then take 1 tab (20mg) daily for 7 days, then take half tab (10mg) daily for 7 days, then stop. 46 tablet 08/24/2020 09/02/2020 sulfamethoxazole-t rimethoprim (BACTRIM) 400-80 mg per tablet Take 1 tablet by mouth daily for 21 days 21 tablet 08/24/2020 09/14/2020 documented in this encounter Discharge Disposition Disposition Code Departure Means Destination Discharge to home or self care documented in this encounter Progress Notes * Milady Greer RN - 08/24/2020 3:23 PM CDT 08/24/20 1522 Discharge Summary Chart reviewed For Medical Necessity Does patient have a planned readmission to hospital planned? No Discharge Disposition Home Equipment/Provider Needs No Home Needs Identified Discharge Additional Assistance Does the patient need discharge transport arranged? No Post Discharge Care Provider Post Discharge Care Plan DC Summary has been faxed to next level of care provider (see Follow Up Providers) Patient is medically stable for discharge to home today. Per team, home health and DME not indicated for this patient. Patient wishes to discharge home. Per patient, family will assist patient at home. Family will provide transportation home. Nurse to instruct on discharge instructions/paperwork. Follow up appointment scheduled by team and on AVS. Patient/family and team agree to plan for discharge. Mental Health Assistant will continue to follow discharge plan of care until the patient is discharged. * Bob Stout MD - 08/24/2020 7:01 AM CDT Nephrology Consult Progress Note INTERVAL HISTORY: - rash improving, started on steroids per Dermatology. - abdominal pain improved, no more bloody BM, able to tolerate p.o. intake. Labs stable REVIEW OF SYSTEMS: As per HPI. All other systems are negative. Objective Vitals: 24hr Min/Max: Temp Min: 36.6 ??C (97.9 ??F) Max: 37.4 ??C (99.3 ??F) Pulse Min: 60 Max: 76 BP Min: 131/77 Max: 142/73 Resp Min: 18 Max: 18 SpO2 Min: 92 % Max: 94 % I/O last 2 completed shifts: In: 1020 [P.O.:1000; I.V.:20] Out: 200 [Urine:200] No intake/output data recorded. General Awake, alert, lying in bed HEENT: moist oral mucosa. No JVD, no cervical lymphadenopathy CV: heart sounds RRR, no murmurs, rub or gallop PULM: clear to auscultation on all lung carvalho. Abdomen: Soft, non-tender, BS present. MSK: no edema, no joint tenderness SKIN: erythematous macular rash of the LE and UE Neuro: AOx3, no focal motor deficits Psych: appropriate affect Dialysis Access Exam: NA Lab/Radiology/Diagnostic Review: Lab Results Component Value Date CREATININE 0.82 08/23/2020 BUNSER 12 08/23/2020 SODIUM 141 08/23/2020 POTASSIUM 3.7 08/23/2020 CO2 29 08/23/2020 Lab Results Component Value Date WBC 9.2 08/23/2020 HGB 12.7 (L) 08/23/2020 HCT 36.8 (L) 08/23/2020 MCV 87.4 08/23/2020 LABPLAT 370 08/23/2020 Lab Results Component Value Date CALCIUM 9.1 08/23/2020 No results found for: IRON, TIBC, FERRITIN ASSESSMENT AND PLAN # Microscopic hematuria -normal baseline creatinine of 0.6 mg/dL -urinalysis with proteinuria and hematuria, UPC 0.9 g/g -urine sediment with RBCs: non dysmorphic, occasionally crenated with 1-2 questionable RBC casts - Concern for IgA vasculitis due to co-occurrence of rash, gastrointestinal symptoms and microscopic hematuria. - Workup -positive JONNA, speckled pattern, 1:160 -indeterminate dsDNA at 6 -normal C3 and C4 Recommendations - Skin biopsy with leukocytoclastic vasculitis negative IF - Continue with planned steroid taper - At this time would hold off on kidney biopsy given stable kidney function. - Plan for outpatient follow-up with rheumatology # Hypertension - Continue home hydrochlorothiazide and lisinopril ?? # Incidental renal cyst - Multiple renal cysts. Subcentimeter exophytic lesion in the interpolar region of the left kidney.Will need outpatient repeat imaging. Patient seen and plan formulated with nephrology attending, Dr. Lucita Trujillo MD Nephrology Fellow Consult 1 Contact (phone): [phone] On weekends and after 4pm on weekdays page lead recreation assistant pager: [phone] Cosigned by Anna Landrum MD PhD at 08/24/2020 6:04 PM CDT Associated attestation - Anna Landrum MD PhD - 08/24/2020 6:04 PM CDT I have seen and examined the patient on 08/24/2020. I agree with the findings and plan of care as documented in the resident/fellow/WOMEN DESIGNER's note. Appreciate the input from Rheum and Derm. * Lashell Isaac MD - 08/24/2020 6:47 AM CDT Medicine Firm Daily Progress Note Patient name: Chadd Recio Date: 08/24/2020 Subjective Chief complaint: Petechial rash, diarrhea Chadd Recio is a 70 y.o. man with h/o seizures, COPD, HTN p/w abdominal pain, diarrhea, LE petechial rash. Interval History: - NAEON. - Derm path with vasculitis, DIF negative for IgG, IgA, IgM, C3 and fibrinogen Plan: Continue po pred/triamcinolone, rheumatology c/s, d/c with pred taper and follow up Objective Medications: Scheduled: [Held by Provider] aspirin, 81 mg, oral, Daily atorvastatin, 40 mg, oral, Daily carBAMazepine, 600 mg, oral, BID enoxaparin, 40 mg, subcutaneous, Daily-2100 fluticasone furoate, 1 puff, inhalation, Daily hydroCHLOROthiazide, 25 mg, oral, Daily insulin lispro, 1-2 Units, subcutaneous, Nightly insulin lispro, 1-3 Units, subcutaneous, TID with meals lisinopriL, 40 mg, oral, Daily predniSONE, 80 mg, oral, Daily ramelteon, 8 mg, oral, Nightly rOPINIRole, 0.5 mg, oral, Nightly sodium chloride 0.9%, 0.5-20 mL, intra-catheter, Q8H AMILCAR umeclidinium-vilanteroL, 1 puff, inhalation, Daily valproate, 500 mg, oral, QID Infusions: PRN: ??? acetaminophen ??? albuterol HFA ??? dextrose OR dextrose ??? glucagon ??? oxyCODONE ??? sodium chloride 0.9% ??? triamcinolone Vitals: 24hr Min/Max: Temp Min: 36.6 ??C (97.9 ??F) Max: 37.4 ??C (99.3 ??F) Pulse Min: 60 Max: 76 BP Min: 131/77 Max: 142/73 Resp Min: 18 Max: 18 SpO2 Min: 92 % Max: 94 % Most Recent: Vitals: 08/24/20 0543 BP: 139/76 Pulse: 65 Resp: 18 Temp: 37.2 ??C (99 ??F) SpO2: 92% Intake/Output Summary (Last 24 hours) at 08/24/2020 0647 Last data filed at 08/24/2020 0615 Gross per 24 hour Intake 1020 ml Output 200 ml Net 820 ml Physical Exam CONS: Well-developed, laying in bed, no acute distress HEENT: NCAT. Anicteric sclera, noninjected conjunctiva. External ears normal. MMM. NECK: No tracheal deviation. CHEST: Atraumatic, normal contour. CARDIAC: Normal rate, regular rhythm. Normal S1/S2, no murmurs/rubs/gallops. No JVD. Equal pulses, cap refill <2sec. PULM: On RA. Normal WOB, speaking in full sentences. CTAB, no wheezes/rubs/rhonci. ABD: Atraumatic, nondistended. NABS, no abdominal bruits. Soft. Mildly tender to palpation throughout, rebound noted in RUQ. No guarding. EXT: WWP. No peripheral edema. 2+ b/l radial pulses. SKIN: Diffuse petechial rash worse over BLE, extending to abdomen and scattered over BUE. Some lesions palpable, now improving and business information manager in color NEURO: Aox3, moves all extremities spontaenously, PRRL, 2-3 beats of nystagmus bilaterally PSYCH: Euthymic, affect congruent. Lab/Radiology/Diagnostic Review: Laboratory review: Lab results in the last 24 hours: Recent Results (from the past 24 hour(s)) POCT glucose Collection Time: 08/23/20 7:51 AM Result Value Ref Range Glucose, POC 86 70 - 199 mg/dL CBC with auto differential Collection Time: 08/23/20 8:11 AM Result Value Ref Range WBC 8.4 3.8 - 9.9 K/cumm Hgb 12.4 (L) 13.0 - 17.5 g/dL Hct 36.7 (L) 38.9 - 50.3 % Plt 349 150 - 400 K/cumm MPV 9.7 9.1 - 12.3 fL RBC 4.19 (L) 4.30 - 5.80 M/cumm MCV 87.6 81.3 - 96.4 fL MCH 29.6 27.1 - 33.3 pg MCHC 33.8 32.3 - 35.7 g/dL RDW CV 12.3 11.1 - 14.9 % RDW SD 39.3 35.7 - 48.1 fL NRBC abs 0.00 0.00 - 0.01 K/cumm Differential, auto Collection Time: 08/23/20 8:11 AM Result Value Ref Range Neutrophil abs 3.6 1.7 - 6.5 K/cumm Imm gran abs 0.0 0.0 - 0.1 K/cumm Lymphocyte abs 4.1 (H) 0.8 - 3.3 K/cumm Monocyte abs 0.6 0.2 - 0.8 K/cumm Eosinophil abs 0.1 0.0 - 0.5 K/cumm Basophil abs 0.0 0.0 - 0.1 K/cumm Neutrophil pct 43.2 % Imm gran pct 0.2 % Lymphocyte pct 48.5 % Monocyte pct 7.1 % Eosinophil pct 0.6 % Basophil pct 0.4 % POCT glucose Collection Time: 08/23/20 10:28 AM Result Value Ref Range Glucose, POC 165 70 - 199 mg/dL POCT glucose Collection Time: 08/23/20 11:29 AM Result Value Ref Range Glucose, POC 136 70 - 199 mg/dL POCT glucose Collection Time: 08/23/20 4:35 PM Result Value Ref Range Glucose, POC 120 70 - 199 mg/dL POCT glucose Collection Time: 08/23/20 8:22 PM Result Value Ref Range Glucose, POC 137 70 - 199 mg/dL CBC with auto differential Collection Time: 08/23/20 11:04 PM Result Value Ref Range WBC 9.2 3.8 - 9.9 K/cumm Hgb 12.7 (L) 13.0 - 17.5 g/dL Hct 36.8 (L) 38.9 - 50.3 % Plt 370 150 - 400 K/cumm MPV 9.8 9.1 - 12.3 fL RBC 4.21 (L) 4.30 - 5.80 M/cumm MCV 87.4 81.3 - 96.4 fL MCH 30.2 27.1 - 33.3 pg MCHC 34.5 32.3 - 35.7 g/dL RDW CV 12.3 11.1 - 14.9 % RDW SD 39.2 35.7 - 48.1 fL NRBC abs 0.00 0.00 - 0.01 K/cumm Comprehensive metabolic panel Collection Time: 08/23/20 11:04 PM Result Value Ref Range Sodium 141 135 - 145 mmol/L Potassium, pl 3.7 3.3 - 4.9 mmol/L Chloride 103 97 - 110 mmol/L CO2 29 22 - 32 mmol/L Anion gap 9 2 - 15 mmol/L BUN 12 8 - 25 mg/dL Creatinine 0.82 0.80 - 1.30 mg/dL Glucose 119 70 - 199 mg/dL Calcium 9.1 8.5 - 10.3 mg/dL Bilirubin, total <0.2 0.1 - 1.2 mg/dL Protein, pl 6.1 (L) 6.5 - 8.5 g/dL Albumin 3.2 (L) 3.5 - 5.0 g/dL Alk phos 68 40 - 130 Units/L ALT 35 7 - 55 Units/L AST 22 10 - 50 Units/L Magnesium Collection Time: 08/23/20 11:04 PM Result Value Ref Range Magnesium 2.0 1.4 - 2.5 mg/dL Differential, auto Collection Time: 08/23/20 11:04 PM Result Value Ref Range Neutrophil abs 5.7 1.7 - 6.5 K/cumm Imm gran abs 0.1 0.0 - 0.1 K/cumm Lymphocyte abs 2.9 0.8 - 3.3 K/cumm Monocyte abs 0.5 0.2 - 0.8 K/cumm Eosinophil abs 0.0 0.0 - 0.5 K/cumm Basophil abs 0.0 0.0 - 0.1 K/cumm Neutrophil pct 62.2 % Imm gran pct 0.7 % Lymphocyte pct 31.0 % Monocyte pct 5.6 % Eosinophil pct 0.2 % Basophil pct 0.3 % Valproic acid level, total Collection Time: 08/23/20 11:04 PM Result Value Ref Range Valproic Acid 45.0 (L) 50.0 - 100.0 mcg/mL Assessment/Plan : Chadd Recio is a 70 y.o. man with h/o seizures, COPD, HTN p/w abdominal pain, diarrhea, LE petechial rash. ?? #Petechial rash Nonblanchable purpuric rash present on lower extremities since 07/23 (around time of hematochezia onset). Progressed from dorsum of feet to involve entire lower extremities, abdomen, and now upper extremities. WBC 15.3, Plt 433, Hgb 15.2, Eosinophil 0.2, Urine 2+ blood and 11-20 RBC. LDH wnl and haptoglobin elevated. High concern for IgA vs other vasculitis >> drug reaction, hematologic/infect ious. Rash improving. Plan: Diagnostic: - UA w/ RBC as above. Cr 0.93. UPr/Cr 99.2. - ESR 31, CRP 47.8. JONNA 1:160 (speckled), dsDNA 6.0. C3/C4 wnl. RF and anti-BRAYAN neg. ANCA pending (collected 08/19) - HIV, hepatitis panel neg, GC neg - Stool culture neg for shiga toxin. BC's NGTD - F/u BCx and stool cx - biopsy with vasculitis negative for IgG, IgA, IgM, C3 and fibrinogen - rheumatology consult Therapeutic: - S/p pred 90mg x2 (08/19, ), plan for pred 80mg qd (08/21 on) and f/u response. If improved GI sx by Saturday, would consider taper w/ 60x1wk, 40x1kw, 20x1wk, 10x1wk, 5x1wk, off. - Triamcinolone 0.1% bid to itchy lesions (not to face) - Hold on abx for now given low suspicion for infection - CBC q12, T&S, trf if Hgb<7, consent in chart #Hematochezia #Anemia #Diarrhea Presenting with abdominal pain and diarrhea associated with eating for nearly a month, presented with new bloody diarrhea x3. Recent history of bloody diarrhea since 07/23. Went to OSH and received levaquin and flagyl for colitis. Suspect possible vasculitic involvement >> ischemic colitis >> AVM's/diverticular bleed. -OSH ([place]) c-scope results received yesterday. Per report, indication was for ischemic colitis and showed moderate segmental inflammation in the proximal ascending colon. Colitis is erythematous, edematous, granular. No mucosal bleeding. Path results w/ slight neutrophilic infilatration of surface epithelium with some crypt abscesses. No significant distortion of the glandular architecture is present. No evidence of lamina propria fibrosis or glandular dropout. Reviewed CT a/p w/ contrast with radiology lead recreation assistant. All vasculature is patent. Do not recommend further imaging. Diagnostic: -CT A/P 08/19: Colonic thickening at the hepatic flexure w/ small volume simple free pelvic fluid likely is colitis vs colon cancer. Recommended colonoscopy (see above) -Stool culture negative for shiga toxin. C. Diff neg -F/u fecal calprotectin -prelim path showing vasculitis Therapeutic: -CBC q12, T&S, trf if Hgb<7, consent in chart -plan to have f/u with renal and derm at d/c -CTA head to r/o vasculitis causing new vision sx - subsequently resolved and CTA negative -depakote level 45 ?? #Seizure disorder Seizure free on current Sz meds for 30+ yrs, reports that he has been on same meds for about 28 years. -continue carbamazepine ER 600 BID -continue valproate 500 mg QID ? #HTN -Home quinapril 40 to lisinopril 40 -Continue home HCTZ 25 ?? #CAD OSH cath 2017 with mild CAD 25% stenosis of RCA, normal EF 70% -cont atorva. Holding ASA for possible renal biopsy. ?? #COPD 40 year pack per day smoking history, quit 10 years ago. - home stiolto -->anoro ellipta - fluticasone #ANGLE Per patient, diagnosed with ANGLE several months ago but does not have CPAP at home yet. Working on insurance coverage. -Hospital-provided CPAP at night #FENGI: Adult [facility] soft -> advance as tolerated #Ppx: DVT ppx w/ Lovenox 40mg subq qd. #Dispo: Home when medically stable #Full Code Lashell Isaac MD PGY-1 Cosigned by Loren Carmona MD at 08/25/2020 5:51 PM CDT Associated attestation - Loren Carmona MD - 08/25/2020 5:51 PM CDT I have seen and examined the patient on 08/24/2020. I agree with the findings and plan of care as documented in the resident's/fellow's note.. * Tawanna Avalos MD PhD - 08/23/2020 9:50 AM CDT Dermatology Daily Progress Consult Note Chief Complaint: Rash HPI/Interval Hx: 70yo male with past medical history including COPD, hypertension, seizures, presenting with abdominal pain, diarrhea and rash. Rash started on feet around 07/30, has spread to involve the whole legs and abdomen. Started Prednisone 90mg 08/19. Workup notable for JONNA 1:160 speckled, dsDNA Ab elevated 6 (4 uln) , anti-BRAYAN neg, ANCA negative. 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 Today, patient notes significant improvement in skin with steroids. C/F diplopia this AM, CTA without e/o intracranial vasculitis. Vitals: 24hr Min/Max: Temp Min: 36.6 ??C (97.9 ??F) Max: 37.4 ??C (99.3 ??F) Pulse Min: 60 Max: 76 BP Min: 121/73 Max: 142/73 Resp Min: 18 Max: 20 SpO2 Min: 92 % Max: 94 % Most Recent: Vitals: 08/23/202020 BP: 131/77 Pulse: 71 Resp: 18 Temp: 37.4 ??C (99.3 ??F) SpO2: 92% Physical Exam: Gen: WD, WN, NAD; Neuro: A&O; Psyc: Normal mood and affect; Skin exam: Inspected the Scalp/Hair, Head/Face, Conjunctivae/Lids, Oropharynx/Lips, Neck, R. Upper Extremity, L. Upper Extremity, Chest/Breast, Abdomen, Back, R. Lower Extremity, L. Lower Extremity Examination normal with the following exceptions: Diffuse hyperpigmented macules and few papules at legs, abd, buttocks, arms Lab/Radiology/Diagnostic Review: - Albumin 2.7->3.2 - Hgb 15.20>12.7->12.6 - BCx 08/19 x 2 NGTD - Urine GC negative 08/19 - Normal C3, C4 - CRP elevated 47.8, ESR elevated 31 - RF <10 - JONNA 1:160 speckled - dsDNA elevated 6 - anti-BRAYAN neg - UA 1+ protein, 2+ blood, 11-20 RBCs, UPCR 99.2 - ANCA negative ASSESSMENT and PLAN: 1. 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 DIF negative for IgA. Possible GI involvement. ?? Improving on prednisone, started 08/19 ?? Workup underwhelming thus far. JONNA 1:160 and dsDNA 6. BRAYAN/ANCA negative. ?? Renal following, recommending rheumatology evaluation ?? Continue triamcinolone 0.1% ointment BID to any itchy spots PRN ?? Dermatology will continue to follow. Thank you for the consult. Please call with any questions [phone] days M-F 7:30AM-5PM [phone] nights/weekends/holidays Tawanna Avalos MD PhD Dermatology, PGY-3 08/23/20, 9:35 PM Cosigned by Meli Cornejo MD at 08/29/2020 5:01 PM CDT Associated attestation - Meli Cornejo MD - 08/29/2020 5:01 PM CDT The resident/fellow saw and examined the patient, we discussed their findings, and I am in agreement with the plan based on the discussion with the resident/fellow. I did not personally examine the patient. * Bob Stout MD - 08/23/2020 7:51 AM CDT Nephrology Consult Progress Note INTERVAL HISTORY: - rash improving, started on steroids per Dermatology. Awaiting biopsy results. - abdominal pain improved, able to tolerate p.o. intake. Labs stable REVIEW OF SYSTEMS: As per HPI. All other systems are negative. Objective Vitals: 24hr Min/Max: Temp Min: 36.6 ??C (97.9 ??F) Max: 36.8 ??C (98.2 ??F) Pulse Min: 68 Max: 76 BP Min: 118/64 Max: 134/82 Resp Min: 18 Max: 20 SpO2 Min: 90 % Max: 95 % I/O last 2 completed shifts: In: 600 [P.O.:600] Out: - No intake/output data recorded. General Awake, alert, lying in bed HEENT: moist oral mucosa. No JVD, no cervical lymphadenopathy CV: heart sounds RRR, no murmurs, rub or gallop PULM: clear to auscultation on all lung carvalho. Abdomen: Soft, non-tender, BS present. MSK: no edema, no joint tenderness SKIN: erythematous macular rash of the LE and UE Neuro: AOx3, no focal motor deficits Psych: appropriate affect Dialysis Access Exam: NA Lab/Radiology/Diagnostic Review: Lab Results Component Value Date CREATININE 0.80 08/22/2020 BUNSER 15 08/22/2020 SODIUM 141 08/22/2020 POTASSIUM 3.4 08/22/2020 CO2 27 08/22/2020 Lab Results Component Value Date WBC 8.5 08/22/2020 HGB 12.2 (L) 08/22/2020 HCT 34.9 (L) 08/22/2020 MCV 86.6 08/22/2020 LABPLAT 362 08/22/2020 Lab Results Component Value Date CALCIUM 8.8 08/22/2020 No results found for: IRON, TIBC, FERRITIN ASSESSMENT AND PLAN # Microscopic hematuria -normal baseline creatinine of 0.6 mg/dL -urinalysis with proteinuria and hematuria, UPC 0.9 g/g -urine sediment with RBCs: non dysmorphic, occasionally crenated with 1-2 questionable RBC casts - Concern for IgA vasculitis due to co-occurrence of rash, gastrointestinal symptoms and microscopic hematuria. - Workup -positive JONNA, speckled pattern, 1:160 -indeterminate dsDNA at 6 -normal C3 and C4 Recommendations - Awaiting results of skin biopsy - Continue steroids per Dermatology - At this time would hold off on kidney biopsy given stable kidney function and awaiting result from Dermatology. Continue to hold NSAIDs/ASA. # Hypertension - Continue home hydrochlorothiazide and lisinopril ?? # Incidental renal cyst Multiple renal cysts. Subcentimeter exophytic lesion in the interpolar region of the left kidney. Will need outpatient repeat imaging. Patient seen and plan formulated with nephrology attending, Dr. Lucita Trujillo MD Nephrology Fellow Consult 1 Contact (phone): [phone] On weekends and after 4pm on weekdays page lead recreation assistant pager: [phone] Cosigned by Anna Landrum MD PhD at 08/23/2020 2:52 PM CDT Associated attestation - Anna Landrum MD PhD - 08/23/2020 2:52 PM CDT I have seen and examined the patient on 08/23/2020. I agree with the findings and plan of care as documented in the resident/fellow/WOMEN DESIGNER's note. Would rec. Rheumatology on board. * Lashell Isaac MD - 08/23/2020 7:00 AM CDT [facility] [employer] Daily Progress Note Patient name: Chadd Recio Date: 08/23/2020 Subjective Chief complaint: Petechial rash, diarrhea Chadd Recio is a 70 y.o. man with h/o seizures, COPD, HTN p/w abdominal pain, diarrhea, LE petechial rash. Interval History: - NAEON. - no additional bloody BMs yesterday and overnight, RN noted several episodes of diarrhea -this AM complaint of left sided facial tingling -prelim path: showing vasculitis, pending further staining -endorsing diplopia this morning , dizziness, some left sided facial tingling Plan: Continue po pred/triamcinolone, f/u path results Objective Medications: Scheduled: [Held by Provider] aspirin, 81 mg, oral, Daily atorvastatin, 40 mg, oral, Daily carBAMazepine, 600 mg, oral, BID enoxaparin, 40 mg, subcutaneous, Daily-2100 fluticasone furoate, 1 puff, inhalation, Daily hydroCHLOROthiazide, 25 mg, oral, Daily insulin lispro, 1-2 Units, subcutaneous, Nightly insulin lispro, 1-3 Units, subcutaneous, TID with meals lisinopriL, 40 mg, oral, Daily predniSONE, 80 mg, oral, Daily ramelteon, 8 mg, oral, Nightly rOPINIRole, 0.5 mg, oral, Nightly sodium chloride 0.9%, 0.5-20 mL, intra-catheter, Q8H AMILCAR umeclidinium-vilanteroL, 1 puff, inhalation, Daily valproate, 500 mg, oral, QID Infusions: PRN: ??? acetaminophen ??? albuterol HFA ??? dextrose OR dextrose ??? glucagon ??? oxyCODONE ??? sodium chloride 0.9% ??? triamcinolone Vitals: 24hr Min/Max: Temp Min: 36.6 ??C (97.9 ??F) Max: 36.9 ??C (98.4 ??F) Pulse Min: 57 Max: 76 BP Min: 118/64 Max: 134/82 Resp Min: 18 Max: 20 SpO2 Min: 90 % Max: 95 % Most Recent: Vitals: 08/23/20 0521 BP: 121/73 Pulse: 68 Resp: 20 Temp: 36.8 ??C (98.2 ??F) SpO2: 92% Intake/Output Summary (Last 24 hours) at 08/23/2020 0700 Last data filed at 08/22/2020 1315 Gross per 24 hour Intake 600 ml Output -- Net 600 ml Physical Exam CONS: Well-developed, laying in bed, no acute distress HEENT: NCAT. Anicteric sclera, noninjected conjunctiva. External ears normal. MMM. NECK: No tracheal deviation. CHEST: Atraumatic, normal contour. CARDIAC: Normal rate, regular rhythm. Normal S1/S2, no murmurs/rubs/gallops. No JVD. Equal pulses, cap refill <2sec. PULM: On RA. Normal WOB, speaking in full sentences. CTAB, no wheezes/rubs/rhonci. ABD: Atraumatic, nondistended. NABS, no abdominal bruits. Soft. Mildly tender to palpation throughout, rebound noted in RUQ. No guarding. EXT: WWP. No peripheral edema. 2+ b/l radial pulses. SKIN: Diffuse petechial rash worse over BLE, extending to abdomen and scattered over BUE. Some lesions palpable, now improving and business information manager in color NEURO: Aox3, moves all extremities spontaenously, PRRL, 2-3 beats of nystagmus bilaterally PSYCH: Euthymic, affect congruent. Lab/Radiology/Diagnostic Review: Laboratory review: Lab results in the last 24 hours: Recent Results (from the past 24 hour(s)) POCT glucose Collection Time: 08/22/20 8:10 AM Result Value Ref Range Glucose, POC 101 70 - 199 mg/dL CBC with auto differential Collection Time: 08/22/20 10:15 AM Result Value Ref Range WBC 8.1 3.8 - 9.9 K/cumm Hgb 12.4 (L) 13.0 - 17.5 g/dL Hct 37.2 (L) 38.9 - 50.3 % Plt 373 150 - 400 K/cumm MPV 9.9 9.1 - 12.3 fL RBC 4.20 (L) 4.30 - 5.80 M/cumm MCV 88.6 81.3 - 96.4 fL MCH 29.5 27.1 - 33.3 pg MCHC 33.3 32.3 - 35.7 g/dL RDW CV 12.6 11.1 - 14.9 % RDW SD 40.8 35.7 - 48.1 fL NRBC abs 0.00 0.00 - 0.01 K/cumm Differential, auto Collection Time: 08/22/20 10:15 AM Result Value Ref Range Neutrophil abs 4.4 1.7 - 6.5 K/cumm Imm gran abs 0.0 0.0 - 0.1 K/cumm Lymphocyte abs 3.1 0.8 - 3.3 K/cumm Monocyte abs 0.5 0.2 - 0.8 K/cumm Eosinophil abs 0.0 0.0 - 0.5 K/cumm Basophil abs 0.0 0.0 - 0.1 K/cumm Neutrophil pct 54.0 % Imm gran pct 0.4 % Lymphocyte pct 38.3 % Monocyte pct 6.6 % Eosinophil pct 0.5 % Basophil pct 0.2 % POCT glucose Collection Time: 08/22/20 12:44 PM Result Value Ref Range Glucose, POC 113 70 - 199 mg/dL POCT glucose Collection Time: 08/22/20 4:36 PM Result Value Ref Range Glucose, POC 214 (H) 70 - 199 mg/dL Glucose comment 1 RN Notified POCT glucose Collection Time: 08/22/20 8:27 PM Result Value Ref Range Glucose, POC 110 70 - 199 mg/dL CBC with auto differential Collection Time: 08/22/20 11:27 PM Result Value Ref Range WBC 8.5 3.8 - 9.9 K/cumm Hgb 12.2 (L) 13.0 - 17.5 g/dL Hct 34.9 (L) 38.9 - 50.3 % Plt 362 150 - 400 K/cumm MPV 9.8 9.1 - 12.3 fL RBC 4.03 (L) 4.30 - 5.80 M/cumm MCV 86.6 81.3 - 96.4 fL MCH 30.3 27.1 - 33.3 pg MCHC 35.0 32.3 - 35.7 g/dL RDW CV 12.2 11.1 - 14.9 % RDW SD 38.8 35.7 - 48.1 fL NRBC abs 0.00 0.00 - 0.01 K/cumm Comprehensive metabolic panel Collection Time: 08/22/20 11:27 PM Result Value Ref Range Sodium 141 135 - 145 mmol/L Potassium, pl 3.4 3.3 - 4.9 mmol/L Chloride 103 97 - 110 mmol/L CO2 27 22 - 32 mmol/L Anion gap 11 2 - 15 mmol/L BUN 15 8 - 25 mg/dL Creatinine 0.80 0.80 - 1.30 mg/dL Glucose 139 70 - 199 mg/dL Calcium 8.8 8.5 - 10.3 mg/dL Bilirubin, total <0.2 0.1 - 1.2 mg/dL Protein, pl 6.3 (L) 6.5 - 8.5 g/dL Albumin 3.0 (L) 3.5 - 5.0 g/dL Alk phos 73 40 - 130 Units/L ALT 33 7 - 55 Units/L AST 22 10 - 50 Units/L Magnesium Collection Time: 08/22/20 11:27 PM Result Value Ref Range Magnesium 2.0 1.4 - 2.5 mg/dL Differential, auto Collection Time: 08/22/20 11:27 PM Result Value Ref Range Neutrophil abs 5.2 1.7 - 6.5 K/cumm Imm gran abs 0.1 0.0 - 0.1 K/cumm Lymphocyte abs 2.6 0.8 - 3.3 K/cumm Monocyte abs 0.6 0.2 - 0.8 K/cumm Eosinophil abs 0.0 0.0 - 0.5 K/cumm Basophil abs 0.0 0.0 - 0.1 K/cumm Neutrophil pct 61.7 % Imm gran pct 0.6 % Lymphocyte pct 30.8 % Monocyte pct 6.6 % Eosinophil pct 0.1 % Basophil pct 0.2 % Assessment/Plan : Chadd Recio is a 70 y.o. man with h/o seizures, COPD, HTN p/w abdominal pain, diarrhea, LE petechial rash. ?? #Petechial rash Nonblanchable purpuric rash present on lower extremities since 07/23 (around time of hematochezia onset). Progressed from dorsum of feet to involve entire lower extremities, abdomen, and now upper extremities. WBC 15.3, Plt 433, Hgb 15.2, Eosinophil 0.2, Urine 2+ blood and 11-20 RBC. LDH wnl and haptoglobin elevated. High concern for IgA vs other vasculitis >> drug reaction, hematologic/infect ious. Rash improving. Plan: Diagnostic: - UA w/ RBC as above. Cr 0.93. UPr/Cr 99.2. - ESR 31, CRP 47.8. JONNA 1:160 (speckled), dsDNA 6.0. C3/C4 wnl. RF and anti-BRAYAN neg. ANCA pending (collected 08/19) - HIV, hepatitis panel neg, GC neg - Stool culture neg for shiga toxin. 's NGTD - F/u BCx and stool cx - F/u skin biopsy results Therapeutic: - S/p pred 90mg x2 (08/19, ), plan for pred 80mg qd (08/21 on) and f/u response. If improved GI sx by Saturday, would consider taper w/ 60x1wk, 40x1kw, 20x1wk, 10x1wk, 5x1wk, off. - Triamcinolone 0.1% bid to itchy lesions (not to face) - Hold on abx for now given low suspicion for infection - CBC q12, T&S, trf if Hgb<7, consent in chart #Hematochezia #Anemia #Diarrhea Presenting with abdominal pain and diarrhea associated with eating for nearly a month, presented with new bloody diarrhea x3. Recent history of bloody diarrhea since 07/23. Went to OSH and received levaquin and flagyl for colitis. Suspect possible vasculitic involvement >> ischemic colitis >> AVM's/diverticular bleed. -OSH ([place]) c-scope results received yesterday. Per report, indication was for ischemic colitis and showed moderate segmental inflammation in the proximal ascending colon. Colitis is erythematous, edematous, granular. No mucosal bleeding. Path results w/ slight neutrophilic infilatration of surface epithelium with some crypt abscesses. No significant distortion of the glandular architecture is present. No evidence of lamina propria fibrosis or glandular dropout. Reviewed CT a/p w/ contrast with radiology lead recreation assistant. All vasculature is patent. Do not recommend further imaging. Diagnostic: -CT A/P 08/19: Colonic thickening at the hepatic flexure w/ small volume simple free pelvic fluid likely is colitis vs colon cancer. Recommended colonoscopy (see above) -Stool culture negative for shiga toxin. C. Diff neg -F/u fecal calprotectin -prelim path showing vasculitis Therapeutic: -CBC q12, T&S, trf if Hgb<7, consent in chart -plan to have f/u with renal and derm at d/c -CTA head to r/o vasculitis causing new vision sx -depakote level ?? #Seizure disorder Seizure free on current Sz meds for 30+ yrs, reports that he has been on same meds for about 28 years. -continue carbamazepine ER 600 BID -continue valproate 500 mg QID ? #HTN -Home quinapril 40 to lisinopril 40 -Continue home HCTZ 25 ?? #CAD OSH cath 2017 with mild CAD 25% stenosis of RCA, normal EF 70% -cont atorva. Holding ASA for possible renal biopsy. ?? #COPD 40 year pack per day smoking history, quit 10 years ago. - home stiolto -->anoro ellipta - fluticasone #ANGLE Per patient, diagnosed with ANGLE several months ago but does not have CPAP at home yet. Working on insurance coverage. -Hospital-provided CPAP at night #FENGI: Adult [facility] soft -> advance as tolerated #Ppx: DVT ppx w/ Lovenox 40mg subq qd. #Dispo: Home when medically stable #Full Code Lashell Isaac MD PGY-1 Cosigned by Loren Carmona MD at 08/23/2020 2:01 PM CDT Associated attestation - Loren Carmona MD - 08/23/2020 2:01 PM CDT I have seen and examined the patient on 08/23/20. I agree with the findings and plan of care as documented in the resident's/fellow's note. Pt noting persistent dizziness and new onset dipolopia this morning. No apparent gaze palsy, PERRLAon exam. EOMI with physiologic nystagmus. CN intact. Strength intact. Reported decreased sensation in L cheek compared to R cheek but equal sensation elsewhere including forehead and chin bilaterally. Will obtain CT/CTA head for further evaluation given persistent symptoms despite overall unrevealin g exam. Pt's rash continues to improve and still has not had additional bloody BM. Abdominal pain resolved.Discussion with path, prelim shwoing vasculitis, additional staining to be done this afternoon. ANCA pending. Given clinical response, could consider tapering prednisone to 60mg tomorrow. Appreciate Derm and Renal recommendations. * Bob Stout MD - 08/22/2020 7:11 AM CDT Nephrology Consult Progress Note INTERVAL HISTORY: - rash improving, started on steroids per Dermatology - abdominal pain also improved, able to tolerate p.o. intake. Labs stable REVIEW OF SYSTEMS: As per HPI. All other systems are negative. Objective Vitals: 24hr Min/Max: Temp Min: 36.4 ??C (97.5 ??F) Max: 37 ??C (98.6 ??F) Pulse Min: 57 Max: 96 BP Min: 115/63 Max: 157/101 Resp Min: 18 Max: 20 SpO2 Min: 91 % Max: 94 % No intake/output data recorded. I/O this shift: In: 360 [P.O.:360] Out: - General Awake, alert, lying in bed HEENT: moist oral mucosa. No JVD, no cervical lymphadenopathy CV: heart sounds RRR, no murmurs, rub or gallop PULM: clear to auscultation on all lung carvalho. Abdomen: Soft, non-tender, BS present. MSK: no edema, no joint tenderness SKIN: erythematous macular rash of the LE and UE Neuro: AOx3, no focal motor deficits Psych: appropriate affect Dialysis Access Exam: NA Lab/Radiology/Diagnostic Review: Lab Results Component Value Date CREATININE 0.88 08/22/2020 BUNSER 14 08/22/2020 SODIUM 143 08/22/2020 POTASSIUM 3.9 08/22/2020 CO2 28 08/22/2020 Lab Results Component Value Date WBC 8.1 08/22/2020 HGB 12.4 (L) 08/22/2020 HCT 37.2 (L) 08/22/2020 MCV 88.6 08/22/2020 LABPLAT 373 08/22/2020 Lab Results Component Value Date CALCIUM 8.8 08/22/2020 No results found for: IRON, TIBC, FERRITIN ASSESSMENT AND PLAN # Microscopic hematuria -normal baseline creatinine of 0.6 mg/dL -urinalysis with proteinuria and hematuria, UPC 0.9 g/g -urine sediment with RBCs: non dysmorphic, occasionally crenated with 1-2 questionable RBC casts - Concern for IgA vasculitis due to co-occurrence of rash, gastrointestinal symptoms and microscopic hematuria. - Workup -positive JONNA, speckled pattern, 1:160 -indeterminate dsDNA at 6 -normal C3 and C4 Recommendations - Awaiting results of skin biopsy - Continue steroids per Dermatology - At this time would hold off on kidney biopsy given stable kidney function and awaiting result from Dermatology. Continue to hold NSAIDs/ASA. # Hypertension - Continue home hydrochlorothiazide and lisinopril ?? # Incidental renal cyst Multiple renal cysts. Subcentimeter exophytic lesion in the interpolar region of the left kidney. Will need outpatient repeat imaging. Patient seen and plan formulated with nephrology attending, Dr. Lucita Trujillo MD Nephrology Fellow Consult 1 Contact (phone): [phone] On weekends and after 4pm on weekdays page lead recreation assistant pager: [phone] Cosigned by Anna Landrum MD PhD at 08/22/2020 12:32 PM CDT Associated attestation - Anna Landrum MD PhD - 08/22/2020 12:32 PM CDT I have seen and examined the patient on 08/22/2020. I agree with the findings and plan of care as documented in the resident/fellow/WOMEN DESIGNER's note. * Feliciano Long MD - 08/22/2020 7:01 AM CDT [facility] Daily Progress Note Patient name: Chadd Recio Date: 08/22/2020 Subjective Chief complaint: Petechial rash, diarrhea Chadd Recio is a 70 y.o. man with h/o seizures, COPD, HTN p/w abdominal pain, diarrhea, LE petechial rash. Interval History: - NAEON. Pt dizzy and anxious with mild headache overnight. VSS with neuro exam normal. Received atarax 25x 1. Patient reports today that he doesn't know why he was so agitated last night, but feels better now. - Patient reports lower extremity rash is improving today, business information manager in color and less evident on abdomen - Hgb 15.2->12.7->12.7->12.4 > 11.6 > 12.4. No BM's since yesterday afternoon. Reports last stool without any blood last night but soft. Plan: Continue po pred/triamcinolone, f/u path results Objective Medications: Scheduled: [Held by Provider] aspirin, 81 mg, oral, Daily atorvastatin, 40 mg, oral, Daily carBAMazepine, 600 mg, oral, BID enoxaparin, 40 mg, subcutaneous, Daily-2100 fluticasone furoate, 1 puff, inhalation, Daily hydroCHLOROthiazide, 25 mg, oral, Daily insulin lispro, 1-2 Units, subcutaneous, Nightly insulin lispro, 1-3 Units, subcutaneous, TID with meals lisinopriL, 40 mg, oral, Daily predniSONE, 80 mg, oral, Daily ramelteon, 8 mg, oral, Nightly rOPINIRole, 0.5 mg, oral, Nightly sodium chloride 0.9%, 0.5-20 mL, intra-catheter, Q8H AMILCAR umeclidinium-vilanteroL, 1 puff, inhalation, Daily valproate, 500 mg, oral, QID Infusions: PRN: ??? acetaminophen ??? albuterol HFA ??? dextrose OR dextrose ??? glucagon ??? oxyCODONE ??? sodium chloride 0.9% ??? triamcinolone Vitals: 24hr Min/Max: Temp Min: 36.4 ??C (97.5 ??F) Max: 37 ??C (98.6 ??F) Pulse Min: 64 Max: 96 BP Min: 115/63 Max: 157/101 Resp Min: 18 Max: 18 SpO2 Min: 91 % Max: 94 % Most Recent: Vitals: 08/21/20 2220 BP: 115/63 Pulse: 72 Resp: Temp: 37 ??C (98.6 ??F) SpO2: 91% No intake or output data in the 24 hours ending 08/22/20 0701 Physical Exam CONS: Well-developed, laying in bed, no acute distress HEENT: NCAT. Anicteric sclera, noninjected conjunctiva. External ears normal. MMM. NECK: No tracheal deviation. CHEST: Atraumatic, normal contour. CARDIAC: Normal rate, regular rhythm. Normal S1/S2, no murmurs/rubs/gallops. No JVD. Equal pulses, cap refill <2sec. PULM: On RA. Normal WOB, speaking in full sentences. CTAB, no wheezes/rubs/rhonci. ABD: Atraumatic, nondistended. NABS, no abdominal bruits. Soft. Mildly tender to palpation throughout, rebound noted in RUQ. No guarding. EXT: WWP. No peripheral edema. 2+ b/l radial pulses. SKIN: Diffuse petechial rash worse over BLE, extending to abdomen and scattered over BUE. Some lesions palpable, now improving and business information manager in color NEURO: Aox3, moves all extremities spontaenously PSYCH: Euthymic, affect congruent. Lab/Radiology/Diagnostic Review: Laboratory review: Lab results in the last 24 hours: Recent Results (from the past 24 hour(s)) POCT glucose Collection Time: 08/21/20 7:37 AM Result Value Ref Range Glucose, POC 85 70 - 199 mg/dL POCT glucose Collection Time: 08/21/20 12:29 PM Result Value Ref Range Glucose, POC 88 70 - 199 mg/dL CBC with auto differential Collection Time: 08/21/20 12:35 PM Result Value Ref Range WBC 10.1 (H) 3.8 - 9.9 K/cumm Hgb 13.2 13.0 - 17.5 g/dL Hct 38.5 (L) 38.9 - 50.3 % Plt 386 150 - 400 K/cumm MPV 9.9 9.1 - 12.3 fL RBC 4.37 4.30 - 5.80 M/cumm MCV 88.1 81.3 - 96.4 fL MCH 30.2 27.1 - 33.3 pg MCHC 34.3 32.3 - 35.7 g/dL RDW CV 12.4 11.1 - 14.9 % RDW SD 40.1 35.7 - 48.1 fL NRBC abs 0.00 0.00 - 0.01 K/cumm Differential, auto Collection Time: 08/21/20 12:35 PM Result Value Ref Range Neutrophil abs 8.1 (H) 1.7 - 6.5 K/cumm Imm gran abs 0.0 0.0 - 0.1 K/cumm Lymphocyte abs 1.6 0.8 - 3.3 K/cumm Monocyte abs 0.4 0.2 - 0.8 K/cumm Eosinophil abs 0.0 0.0 - 0.5 K/cumm Basophil abs 0.0 0.0 - 0.1 K/cumm Neutrophil pct 79.8 % Imm gran pct 0.3 % Lymphocyte pct 15.3 % Monocyte pct 4.2 % Eosinophil pct 0.2 % Basophil pct 0.2 % POCT glucose Collection Time: 08/21/20 3:58 PM Result Value Ref Range Glucose, POC 144 70 - 199 mg/dL Hemoglobin and hematocrit Collection Time: 08/21/20 4:02 PM Result Value Ref Range Hgb 12.8 (L) 13.0 - 17.5 g/dL Hct 37.9 (L) 38.9 - 50.3 % Basic metabolic panel Collection Time: 08/21/20 4:02 PM Result Value Ref Range Sodium 142 135 - 145 mmol/L Potassium, pl 3.9 3.3 - 4.9 mmol/L Chloride 105 97 - 110 mmol/L CO2 25 22 - 32 mmol/L Anion gap 12 2 - 15 mmol/L BUN 11 8 - 25 mg/dL Creatinine 0.84 0.80 - 1.30 mg/dL Glucose 164 70 - 199 mg/dL Calcium 9.2 8.5 - 10.3 mg/dL Magnesium Collection Time: 08/21/20 4:02 PM Result Value Ref Range Magnesium 2.0 1.4 - 2.5 mg/dL POCT glucose Collection Time: 08/21/20 5:50 PM Result Value Ref Range Glucose, POC 107 70 - 199 mg/dL POCT glucose Collection Time: 08/21/20 10:20 PM Result Value Ref Range Glucose, POC 80 70 - 199 mg/dL Comprehensive metabolic panel Collection Time: 08/22/20 3:38 AM Result Value Ref Range Sodium 143 135 - 145 mmol/L Potassium, pl 3.9 3.3 - 4.9 mmol/L Chloride 107 97 - 110 mmol/L CO2 28 22 - 32 mmol/L Anion gap 8 2 - 15 mmol/L BUN 14 8 - 25 mg/dL Creatinine 0.88 0.80 - 1.30 mg/dL Glucose 89 70 - 199 mg/dL Calcium 8.8 8.5 - 10.3 mg/dL Bilirubin, total <0.2 0.1 - 1.2 mg/dL Protein, pl 6.0 (L) 6.5 - 8.5 g/dL Albumin 2.9 (L) 3.5 - 5.0 g/dL Alk phos 66 40 - 130 Units/L ALT 36 7 - 55 Units/L AST 21 10 - 50 Units/L Magnesium Collection Time: 08/22/20 3:38 AM Result Value Ref Range Magnesium 2.1 1.4 - 2.5 mg/dL Type and screen Collection Time: 08/22/20 3:38 AM Result Value Ref Range Denae, indirect Negative ABO Rh O Positive CBC with auto differential Collection Time: 08/22/20 3:38 AM Result Value Ref Range WBC 8.1 3.8 - 9.9 K/cumm Hgb 11.6 (L) 13.0 - 17.5 g/dL Hct 34.7 (L) 38.9 - 50.3 % Plt 348 150 - 400 K/cumm MPV 10.0 9.1 - 12.3 fL RBC 3.91 (L) 4.30 - 5.80 M/cumm MCV 88.7 81.3 - 96.4 fL MCH 29.7 27.1 - 33.3 pg MCHC 33.4 32.3 - 35.7 g/dL RDW CV 12.5 11.1 - 14.9 % RDW SD 40.4 35.7 - 48.1 fL NRBC abs 0.00 0.00 - 0.01 K/cumm Lupus Anticoagulant Panel plus Reflexes Collection Time: 08/22/20 3:38 AM Result Value Ref Range PT 12.8 9.5 - 13.6 sec INR 1.2 0.9 - 1.2 aPTT 39 (H) 27 - 37 sec Differential, auto Collection Time: 08/22/20 3:38 AM Result Value Ref Range Neutrophil abs 4.2 1.7 - 6.5 K/cumm Imm gran abs 0.0 0.0 - 0.1 K/cumm Lymphocyte abs 3.4 (H) 0.8 - 3.3 K/cumm Monocyte abs 0.5 0.2 - 0.8 K/cumm Eosinophil abs 0.0 0.0 - 0.5 K/cumm Basophil abs 0.0 0.0 - 0.1 K/cumm Neutrophil pct 52.4 % Imm gran pct 0.2 % Lymphocyte pct 41.4 % Monocyte pct 5.7 % Eosinophil pct 0.1 % Basophil pct 0.2 % Assessment/Plan : Chadd Recio is a 70 y.o. man with h/o seizures, COPD, HTN p/w abdominal pain, diarrhea, LE petechial rash. ?? #Petechial rash Nonblanchable purpuric rash present on lower extremities since 07/23 (around time of hematochezia onset). Progressed from dorsum of feet to involve entire lower extremities, abdomen, and now upper extremities. WBC 15.3, Plt 433, Hgb 15.2, Eosinophil 0.2, Urine 2+ blood and 11-20 RBC. LDH wnl and haptoglobin elevated. High concern for IgA vs other vasculitis >> drug reaction, hematologic/infect ious. Rash improving. Plan: Diagnostic: - UA w/ RBC as above. Cr 0.93. UPr/Cr 99.2. - ESR 31, CRP 47.8. JONNA 1:160 (speckled), dsDNA 6.0. C3/C4 wnl. RF and anti-BRAYAN neg. ANCA pending (collected 08/19) - HIV, hepatitis panel neg, GC neg - Stool culture neg for shiga toxin. BC's NGTD - F/u BCx and stool cx - F/u skin biopsy results Therapeutic: - S/p pred 90mg x2 (08/19, ), plan for pred 80mg qd (08/21 on) and f/u response. If improved GI sx by Saturday, would consider taper w/ 60x1wk, 40x1kw, 20x1wk, 10x1wk, 5x1wk, off. - Triamcinolone 0.1% bid to itchy lesions (not to face) - Hold on abx for now given low suspicion for infection - CBC q12, T&S, trf if Hgb<7, consent in chart #Hematochezia #Anemia #Diarrhea Presenting with abdominal pain and diarrhea associated with eating for nearly a month, presented with new bloody diarrhea x3. Recent history of bloody diarrhea since 07/23. Went to OSH and received levaquin and flagyl for colitis. Suspect possible vasculitic involvement >> ischemic colitis >> AVM's/diverticular bleed. -OSH ([place]) c-scope results received yesterday. Per report, indication was for ischemic colitis and showed moderate segmental inflammation in the proximal ascending colon. Colitis is erythematous, edematous, granular. No mucosal bleeding. Path results w/ slight neutrophilic infilatration of surface epithelium with some crypt abscesses. No significant distortion of the glandular architecture is present. No evidence of lamina propria fibrosis or glandular dropout. Reviewed CT a/p w/ contrast with radiology lead recreation assistant. All vasculature is patent. Do not recommend further imaging. Diagnostic: -CT A/P 08/19: Colonic thickening at the hepatic flexure w/ small volume simple free pelvic fluid likely is colitis vs colon cancer. Recommended colonoscopy (see above) -Stool culture negative for shiga toxin. C. Diff neg -Consider discussion regarding additional staining of colonoscopy sample to evaluate for vasculitis -F/u fecal calprotectin Therapeutic: -CBC q12, T&S, trf if Hgb<7, consent in chart ?? #Seizure disorder Seizure free on current Sz meds for 30+ yrs, reports that he has been on same meds for about 28 years. -continue carbamazepine ER 600 BID -continue valproate 500 mg QID ? #HTN -Home quinapril 40 to lisinopril 40 -Continue home HCTZ 25 ?? #CAD OSH cath 2017 with mild CAD 25% stenosis of RCA, normal EF 70% -cont atorva. Holding ASA for possible renal biopsy. ?? #COPD 40 year pack per day smoking history, quit 10 years ago. - home stiolto -->anoro ellipta - fluticasone #ANGLE Per patient, diagnosed with ANGLE several months ago but does not have CPAP at home yet. Working on insurance coverage. -Hospital-provided CPAP at night #FENGI: Adult mech soft -> advance as tolerated #Ppx: DVT ppx w/ Lovenox 40mg subq qd. #Dispo: Home when medically stable #Full Code Feliciano Long MD Internal Medicine PGY-2 Please check treatment teams before paging; I may be out of hospital after 4:30pm on weekdays and 1:00pm weekends For non-life threatening questions, please page me via SPOK, and leave a direct callback phone number. Cosigned by Loren Carmona MD at 08/22/2020 12:55 PM CDT Associated attestation - Loren Carmona MD - 08/22/2020 12:55 PM CDT I have seen and examined the patient on 08/22/20. I agree with the findings and plan of care as documented in the resident's/fellow's note. Improvement in rash and no additional bloody BM. Awaiting biopsy results and ANCA, lupus anticoagulant results. * Nesha Johnson MD - 08/21/2020 7:23 AM CDT [facility] Daily Progress Note Patient name: Chadd Recio Date: 08/21/2020 Subjective Chief complaint: Petechial rash, diarrhea Chadd Recio is a 70 y.o. man with h/o seizures, COPD, HTN p/w abdominal pain, diarrhea, LE petechial rash. Interval History: - NAEON. Patient reports lower extremity rash is stable. Spreading laterally on abdomen. - Hgb 15.2->12.7->12.7->12.4. No BM's since yesterday afternoon. Reports last stool had maroon streaks - LDH wnl, haptoglobin elevated at 380. C. Diff neg and stool culture negative for shiga - Mild AP still, no SOB, tachypnea, tachycardia, chest pain. Orthostatic symptoms improved from yesterday. 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 Per report, indication was for ischemic colitis and showed moderate segmental inflammation in the proximal ascending colon. Colitis is erythematous, edematous, granular. No mucosal bleeding. Path results w/ slight neutrophilic infilatration of surface ep ithelium with some crypt abscesses. No significant distortion of the glandular architecture is present. No evidence of lamina propria fibrosis or glandular dropout. Reviewed CT a/p w/ contrast with radiology lead recreation assistant. All vasculature is patent. Do not recommend further imaging. Plan: Continue po pred/triamcinolone, f/u path results Objective Medications: Scheduled: [Held by Provider] aspirin, 81 mg, oral, Daily atorvastatin, 40 mg, oral, Daily carBAMazepine, 600 mg, oral, BID enoxaparin, 40 mg, subcutaneous, Daily-2100 fluticasone furoate, 1 puff, inhalation, Daily hydroCHLOROthiazide, 25 mg, oral, Daily insulin lispro, 1-2 Units, subcutaneous, Nightly insulin lispro, 1-3 Units, subcutaneous, TID with meals lisinopriL, 40 mg, oral, Daily predniSONE, 80 mg, oral, Daily rOPINIRole, 0.5 mg, oral, Nightly sodium chloride 0.9%, 0.5-20 mL, intra-catheter, Q8H AMILCAR umeclidinium-vilanteroL, 1 puff, inhalation, Daily valproate, 500 mg, oral, QID Infusions: PRN: ??? acetaminophen ??? albuterol HFA ??? dextrose OR dextrose ??? glucagon ??? oxyCODONE ??? sodium chloride 0.9% ??? triamcinolone Vitals: 24hr Min/Max: Temp Min: 36.6 ??C (97.9 ??F) Max: 37 ??C (98.6 ??F) Pulse Min: 79 Max: 90 BP Min: 97/56 Max: 122/59 Resp Min: 16 Max: 18 SpO2 Min: 92 % Max: 96 % Most Recent: Vitals: 08/20/201949 BP: 115/64 Pulse: 83 Resp: Temp: 36.6 ??C (97.9 ??F) SpO2: 95% Intake/Output Summary (Last 24 hours) at 08/21/2020 0723 Last data filed at 08/20/2020 0955 Gross per 24 hour Intake 960 ml Output -- Net 960 ml Physical Exam CONS: Well-developed, laying in bed, no acute distress HEENT: NCAT. Anicteric sclera, noninjected conjunctiva. External ears normal. MMM. NECK: No tracheal deviation. CHEST: Atraumatic, normal contour. CARDIAC: Normal rate, regular rhythm. Normal S1/S2, no murmurs/rubs/gallops. No JVD. Equal pulses, cap refill <2sec. PULM: On RA. Normal WOB, speaking in full sentences. CTAB, no wheezes/rubs/rhonci. ABD: Atraumatic, nondistended. NABS, no abdominal bruits. Soft. Mildly tender to palpation throughout, rebound noted in RUQ. No guarding. EXT: WWP. No peripheral edema. 2+ b/l radial pulses. SKIN: Diffuse petechial rash worse over BLE, extending to abdomen and scattered over BUE. Some lesions palpable. NEURO: Mental status: Awake, alert, answering all questions appropriately, follows simple 1-step commands.Spontaneous speech fluent, no paraphasic errors. Attends well throughout exam. Memory intact to recent/remote events. CN: Eyes conjugate and cross midline b/l, face symmetric w/o NLF flattening, no dysarthria, turns head b/l. Coordination: Reaches accurately for objects b/l. Station/Gait: not done. PSYCH: Euthymic, affect congruent. Lab/Radiology/Diagnostic Review: Laboratory review: Lab results in the last 24 hours: Recent Results (from the past 24 hour(s)) CBC with auto differential Collection Time: 08/20/20 8:18 AM Result Value Ref Range WBC 9.4 3.8 - 9.9 K/cumm Hgb 12.7 (L) 13.0 - 17.5 g/dL Hct 37.1 (L) 38.9 - 50.3 % Plt 354 150 - 400 K/cumm MPV 10.0 9.1 - 12.3 fL RBC 4.24 (L) 4.30 - 5.80 M/cumm MCV 87.5 81.3 - 96.4 fL MCH 30.0 27.1 - 33.3 pg MCHC 34.2 32.3 - 35.7 g/dL RDW CV 12.1 11.1 - 14.9 % RDW SD 38.6 35.7 - 48.1 fL NRBC abs 0.00 0.00 - 0.01 K/cumm Differential, auto Collection Time: 08/20/20 8:18 AM Result Value Ref Range Neutrophil abs 8.4 (H) 1.7 - 6.5 K/cumm Imm gran abs 0.0 0.0 - 0.1 K/cumm Lymphocyte abs 0.8 0.8 - 3.3 K/cumm Monocyte abs 0.2 0.2 - 0.8 K/cumm Eosinophil abs 0.0 0.0 - 0.5 K/cumm Basophil abs 0.0 0.0 - 0.1 K/cumm Neutrophil pct 88.8 % Imm gran pct 0.4 % Lymphocyte pct 8.4 % Monocyte pct 2.3 % Eosinophil pct 0.0 % Basophil pct 0.1 % POCT glucose Collection Time: 08/20/20 1:08 PM Result Value Ref Range Glucose, POC 110 70 - 199 mg/dL POCT glucose Collection Time: 08/20/20 4:38 PM Result Value Ref Range Glucose, POC 156 70 - 199 mg/dL Comprehensive metabolic panel Collection Time: 08/20/20 4:54 PM Result Value Ref Range Sodium 141 135 - 145 mmol/L Potassium, pl 4.0 3.3 - 4.9 mmol/L Chloride 106 97 - 110 mmol/L CO2 25 22 - 32 mmol/L Anion gap 10 2 - 15 mmol/L BUN 11 8 - 25 mg/dL Creatinine 0.79 (L) 0.80 - 1.30 mg/dL Glucose 128 70 - 199 mg/dL Calcium 9.4 8.5 - 10.3 mg/dL Bilirubin, total <0.2 0.1 - 1.2 mg/dL Protein, pl 6.5 6.5 - 8.5 g/dL Albumin 3.1 (L) 3.5 - 5.0 g/dL Alk phos 77 40 - 130 Units/L ALT 35 7 - 55 Units/L AST 16 10 - 50 Units/L Magnesium Collection Time: 08/20/20 4:54 PM Result Value Ref Range Magnesium 1.9 1.4 - 2.5 mg/dL CBC with auto differential Collection Time: 08/20/20 4:54 PM Result Value Ref Range WBC 13.2 (H) 3.8 - 9.9 K/cumm Hgb 12.3 (L) 13.0 - 17.5 g/dL Hct 35.7 (L) 38.9 - 50.3 % Plt 356 150 - 400 K/cumm MPV 9.8 9.1 - 12.3 fL RBC 4.08 (L) 4.30 - 5.80 M/cumm MCV 87.5 81.3 - 96.4 fL MCH 30.1 27.1 - 33.3 pg MCHC 34.5 32.3 - 35.7 g/dL RDW CV 12.0 11.1 - 14.9 % RDW SD 38.5 35.7 - 48.1 fL NRBC abs 0.00 0.00 - 0.01 K/cumm Differential, auto Collection Time: 08/20/20 4:54 PM Result Value Ref Range Neutrophil abs 12.1 (H) 1.7 - 6.5 K/cumm Imm gran abs 0.1 0.0 - 0.1 K/cumm Lymphocyte abs 0.8 0.8 - 3.3 K/cumm Monocyte abs 0.2 0.2 - 0.8 K/cumm Eosinophil abs 0.0 0.0 - 0.5 K/cumm Basophil abs 0.0 0.0 - 0.1 K/cumm Neutrophil pct 91.5 % Imm gran pct 0.8 % Lymphocyte pct 6.2 % Monocyte pct 1.4 % Eosinophil pct 0.0 % Basophil pct 0.1 % POCT glucose Collection Time: 08/20/20 7:53 PM Result Value Ref Range Glucose, POC 122 70 - 199 mg/dL CBC with auto differential Collection Time: 08/21/20 3:38 AM Result Value Ref Range WBC 13.5 (H) 3.8 - 9.9 K/cumm Hgb 12.4 (L) 13.0 - 17.5 g/dL Hct 36.3 (L) 38.9 - 50.3 % Plt 368 150 - 400 K/cumm MPV 9.8 9.1 - 12.3 fL RBC 4.10 (L) 4.30 - 5.80 M/cumm MCV 88.5 81.3 - 96.4 fL MCH 30.2 27.1 - 33.3 pg MCHC 34.2 32.3 - 35.7 g/dL RDW CV 12.3 11.1 - 14.9 % RDW SD 39.6 35.7 - 48.1 fL NRBC abs 0.00 0.00 - 0.01 K/cumm Differential, auto Collection Time: 08/21/20 3:38 AM Result Value Ref Range Neutrophil abs 9.8 (H) 1.7 - 6.5 K/cumm Imm gran abs 0.1 0.0 - 0.1 K/cumm Lymphocyte abs 2.9 0.8 - 3.3 K/cumm Monocyte abs 0.6 0.2 - 0.8 K/cumm Eosinophil abs 0.0 0.0 - 0.5 K/cumm Basophil abs 0.0 0.0 - 0.1 K/cumm Neutrophil pct 72.7 % Imm gran pct 0.7 % Lymphocyte pct 21.7 % Monocyte pct 4.7 % Eosinophil pct 0.1 % Basophil pct 0.1 % Assessment/Plan : Chadd Recio is a 70 y.o. man with h/o seizures, COPD, HTN p/w abdominal pain, diarrhea, LE petechial rash. ?? #Petechial rash Nonblanchable purpuric rash present on lower extremities since 07/23 (around time of hematochezia onset). Progressed from dorsum of feet to involve entire lower extremities, abdomen, and now upper extremities. WBC 15.3, Plt 433, Hgb 15.2, Eosinophil 0.2, Urine 2+ blood and 11-20 RBC. LDH wnl and haptoglobin elevated. High concern for IgA vs other vasculitis >> drug reaction, hematologic/infect ious. Plan: Diagnostic: - UA w/ RBC as above. Cr 0.93. UPr/Cr 99.2. - ESR 31, CRP 47.8. JONNA 1:160 (speckled), dsDNA 6.0. C3/C4 wnl. RF and anti-BRAYAN neg. ANCA pending (collected 08/19) - HIV, hepatitis panel neg, GC neg - Stool culture neg for shiga toxin. BC's NGTD - F/u BCx and stool cx - F/u skin biopsy results Therapeutic: - S/p pred 90mg x2 (08/19, ), plan for pred 80mg qd (08/21 on) and f/u response. If improved GI sx by Saturday, would consider taper w/ 60x1wk, 40x1kw, 20x1wk, 10x1wk, 5x1wk, off. - Triamcinolone 0.1% bid to itchy lesions (not to face) - Hold on abx for now given low suspicion for infection - CBC q12, T&S, trf if Hgb<7, consent in chart #Hematochezia #Anemia #Diarrhea Presenting with abdominal pain and diarrhea associated with eating for nearly a month, presented with new bloody diarrhea x3. Recent history of bloody diarrhea since 07/23. Went to OSH and received levaquin and flagyl for colitis. Suspect possible vasculitic involvement >> ischemic colitis >> AVM's/diverticular bleed. -OSH ([place]) c-scope results received yesterday. Per report, indication was for ischemic colitis and showed moderate segmental inflammation in the proximal ascending colon. Colitis is erythematous, edematous, granular. No mucosal bleeding. Path results w/ slight neutrophilic infilatration of surface epithelium with some crypt abscesses. No significant distortion of the glandular architecture is present. No evidence of lamina propria fibrosis or glandular dropout. Reviewed CT a/p w/ contrast with radiology lead recreation assistant. All vasculature is patent. Do not recommend further imaging. Diagnostic: -CT A/P 08/19: Colonic thickening at the hepatic flexure w/ small volume simple free pelvic fluid likely is colitis vs colon cancer. Recommended colonoscopy (see above) -Stool culture negative for shiga toxin. C. Diff neg -Consider discussion regarding additional staining of colonoscopy sample to evaluate for vasculitis -F/u fecal calprotectin Therapeutic: -CBC q12, T&S, trf if Hgb<7, consent in chart ?? #Seizure disorder Seizure free on current Sz meds for 30+ yrs, reports that he has been on same meds for about 28 years. -continue carbamazepine ER 600 BID -continue valproate 500 mg QID ? #HTN -Home quinapril 40 to lisinopril 40 -Continue home HCTZ 25 ?? #CAD OSH cath 2017 with mild CAD 25% stenosis of RCA, normal EF 70% -cont atorva. Holding ASA for possible renal biopsy. ?? #COPD 40 year pack per day smoking history, quit 10 years ago. - home stiolto -->anoro ellipta - fluticasone #ANGLE Per patient, diagnosed with ANGLE several months ago but does not have CPAP at home yet. Working on insurance coverage. -Hospital-provided CPAP at night #[facility] as tolerated #Ppx: DVT ppx w/ Lovenox 40mg subq qd. #Dispo: Home when medically stable #Full Code Nesha Johnson MD PGY-1, Internal Medicine Cosigned by Loren Carmona MD at 08/21/2020 4:44 PM CDT Associated attestation - Loren Carmona MD - 08/21/2020 4:44 PM CDT I have seen and examined the patient on 08/21/20. I agree with the findings and plan of care as documented in the resident's/fellow's note. Overall stable. Rash overall stable in LE and abdomen but has traveled proximally on arms. Hgb stable, pt reports last BM yesterday afternoon. OSH C- scope findings as reported below. No evidence of malignancy on biopsy. Awaiting skin biopsy results. BRAYAN negative, ANCA w/reflex pending. Will continue steroids. Can trend CBCs daily at this time given stability in Hgb. * La Damico MD PhD - 08/20/2020 12:36 PM CDT Dermatology Daily Progress Consult Note Chief Complaint: Rash HPI/Interval Hx: 70yo male with past medical history including COPD, hypertension, seizures, presenting with abdominal pain, diarrhea and rash. Rash started on feet around 07/30, has spread to involve the whole legs and abdomen. Favor small vessel vasculitis with hematuria and hematochezia. Nephrology concerned for IgA vasculitis, recommended ANCA with reflex to MPO/PR3. Primary team started Prednisone 90mg 08/19. JONNA 1:160 speckled, dsDNA Ab elevated 6 (4 uln) , anti-BRAYAN neg, ANCA pending. Patient reports stable symptoms from yesterday - rash, diarrhea is about the same. Not received TMCyet. Does not dizziness today, orthostatics positive per RN and receiving fluids. Vitals: 24hr Min/Max: Temp Min: 36.6 ??C (97.9 ??F) Max: 37 ??C (98.6 ??F) Pulse Min: 75 Max: 90 BP Min: 97/56 Max: 122/59 Resp Min: 18 Max: 18 SpO2 Min: 92 % Max: 96 % Most Recent: Vitals: 08/20/20 1230 BP: 122/59 Pulse: 79 Resp: Temp: 36.6 ??C (97.9 ??F) SpO2: 92% Physical Exam: Gen: WD, WN, NAD; Neuro: A&O; Psyc: Normal mood and affect; Skin exam: Inspected the Scalp/Hair, Head/Face, Conjunctivae/Lids, Oropharynx/Lips, Neck, R. Upper Extremity, L. Upper Extremity, Chest/Breast, Abdomen, Back, R. Lower Extremity, L. Lower Extremity, Buttocks, Genitalia Examination normal with the following exceptions: Diffuse purpura, some palpable, legs, abd, buttocks, arms Lab/Radiology/Diagnostic Review: - Albumin 2.7->3.2 - Hgb 15.20>12.7->12.6 - BCx 08/19 x 2 NGTD - Urine GC negative 08/19 - Normal C3, C4 - CRP elevated 47.8, ESR elevated 31 - RF <10 - JONNA 1:160 speckled - dsDNA elevated 6 - anti-BRAYAN neg - UA 1+ protein, 2+ blood, 11-20 RBCs, UPCR 99.2 - ANCA panel pending ASSESSMENT and PLAN: Favor small vessel vasculitis with hematuria and hematochezia. - biopsy H&E and DIF 08/19 - pathology pending. Right thigh. Remove sutures 08/30. Change vaseline/bandage daily. - Started prednisone 90mg 08/19 -- - workup pending as above. Notable for JONNA 1:160 speckled, dsDNA Ab elevated at 6, anti-BRAYAN neg, ANCA pending, normal C3, C4 - consult to GI pending - Appreciate nephrology recs. - Continue triamcinolone 0.1% ointment BID prn to any itchy lesions, NOT to face. Dispense 454g tub. - pending eval by GI (or records from prior GI consult at OSH) and nephrology. ?? Thank you for the consult.??Dermatology will continue to follow. For any questions??M-F 8am-5pm, please call??[phone].??For urgent questions nights and weekends, please call [phone]. ?? Jailyn Damico MD PhD PGY2 Dermatology Cosigned by Meli Cornejo MD at 08/23/2020 9:24 AM CDT Associated attestation - Meli Cornejo MD - 08/23/2020 9:24 AM CDT The resident/fellow saw and examined the patient, we discussed their findings, and I am in agreement with the plan based on the discussion with the resident/fellow. I did not personally examine the patient. * Jose Maloney MD - 08/20/2020 6:36 AM CDT Medicine Firm Daily Progress Note Patient name: Chadd Recio Date: 08/20/2020 Subjective Chief complaint: Petechial rash, diarrhea Chadd Recio is a 70 y.o. man with h/o seizures, COPD, HTN p/w abdominal pain, diarrhea, LE petechial rash. Interval History: - NAEON - Afebrile, resolving WBC 15.3->9.8 - Hgb 15.2->12.7->12.7. Continued hematochezia w/ maroon colored stools. - Mild AP still, no SOB, tachypnea, tachycardia, chest pain. Mild orthostatic symptoms this am. Encouraged PO intake and orthostatic ppx - Seen by Dermatology and Nephrology yesterday. S/p 2 punch biopsies, well tolerated, will f/u pathresults. Both c/s services agree with presumptive clinical diagnosis of IgA vasculitis. Started on triamcinolone and PO prednisone - Sent request for OSH c-scope results yesterday, awaiting return of documents - Spoke w/ pts daughter and re: diagnosis and tx plans Plan: Continue po pred/triamcinolone, f/u path results, f/u OSH C-scope results, f/u LDH/hapto Objective Medications: Scheduled: [Held by Provider] aspirin, 81 mg, oral, Daily atorvastatin, 40 mg, oral, Daily carBAMazepine, 600 mg, oral, BID enoxaparin, 40 mg, subcutaneous, Daily-2100 fluticasone furoate, 1 puff, inhalation, Daily (RT) hydroCHLOROthiazide, 25 mg, oral, Daily lisinopriL, 40 mg, oral, Daily predniSONE, 90 mg, oral, Daily rOPINIRole, 0.5 mg, oral, Nightly sodium chloride 0.9%, 0.5-20 mL, intra-catheter, Q8H AMILCAR umeclidinium-vilanteroL, 1 puff, inhalation, Daily (RT) valproate, 500 mg, oral, QID Infusions: PRN: ??? acetaminophen ??? albuterol HFA ??? oxyCODONE ??? sodium chloride 0.9% ??? triamcinolone Vitals: 24hr Min/Max: Temp Min: 36.9 ??C (98.4 ??F) Max: 37 ??C (98.6 ??F) Pulse Min: 79 Max: 82 BP Min: 101/67 Max: 119/62 Resp Min: 18 Max: 18 SpO2 Min: 92 % Max: 95 % Most Recent: Vitals: 08/19/20 2150 BP: 101/67 Pulse: 82 Resp: Temp: 37 ??C (98.6 ??F) SpO2: 93% Intake/Output Summary (Last 24 hours) at 08/20/2020 0636 Last data filed at 08/19/2020 0959 Gross per 24 hour Intake -- Output 100 ml Net -100 ml Physical Exam CONS: Well-developed, laying in bed, no acute distress HEENT: NCAT. Anicteric sclera, noninjected conjunctiva. External ears normal. MMM. NECK: No tracheal deviation. CHEST: Atraumatic, normal contour. CARDIAC: Normal rate, regular rhythm. Normal S1/S2, no murmurs/rubs/gallops. No JVD. Equal pulses, cap refill <2sec. PULM: On RA. Normal WOB, speaking in full sentences. CTAB, no wheezes/rubs/rhonci. ABD: Atraumatic, nondistended. NABS, no abdominal bruits. Soft, non-tender, no rebound/guarding. EXT: WWP. No peripheral edema. 2+ b/l radial pulses. SKIN: Diffuse petechial rash worse over BLE, extending to abdomen and scattered over BUE. Some lesions palpable. NEURO: Mental status: Awake, alert, answering all questions appropriately, follows simple 1-step commands.Spontaneous speech fluent, no paraphasic errors. Attends well throughout exam. Memory intact to recent/remote events. CN: Eyes conjugate and cross midline b/l, face symmetric w/o NLF flattening, no dysarthria, turns head b/l. Motor: Normal bulk/tone throughout. No obvious tremor/dyskinesia. 5/5 throughout BUE/BLE, no pronator drift, fast finger taps. Sensory: Sensation intact to LT throughout BUE/BLE Reflexes: 2+ patellar, no clonus, toes downgoing. Coordination: Reaches accurately for objects b/l. Station/Gait: not done. PSYCH: Euthymic, affect congruent. Lab/Radiology/Diagnostic Review: Laboratory review: Lab results in the last 24 hours: Recent Results (from the past 24 hour(s)) N. gonorrhoeae/C. trachomatis Amplification Urine Collection Time: 08/19/20 9:59 AM Specimen: None; Urine Result Value Ref Range C. trachomatis Not Detected Not Detected N. gonorrhoeae Not Detected Not Detected Protein / creatinine ratio, urine, random Collection Time: 08/19/20 5:24 PM Result Value Ref Range Protein, ur, quant 7.8 mg/dL Creatinine Ur 78.6 mg/dL Protein/creatinine ratio 99.2 0.0 - 180.0 mg/g CR Comprehensive metabolic panel Collection Time: 08/20/20 2:46 AM Result Value Ref Range Sodium 140 135 - 145 mmol/L Potassium, pl 4.0 3.3 - 4.9 mmol/L Chloride 104 97 - 110 mmol/L CO2 28 22 - 32 mmol/L Anion gap 8 2 - 15 mmol/L BUN 12 8 - 25 mg/dL Creatinine 0.93 0.80 - 1.30 mg/dL Glucose 174 70 - 199 mg/dL Calcium 8.9 8.5 - 10.3 mg/dL Bilirubin, total 0.2 0.1 - 1.2 mg/dL Protein, pl 6.7 6.5 - 8.5 g/dL Albumin 3.2 (L) 3.5 - 5.0 g/dL Alk phos 79 40 - 130 Units/L ALT 41 7 - 55 Units/L AST 20 10 - 50 Units/L Magnesium Collection Time: 08/20/20 2:46 AM Result Value Ref Range Magnesium 2.1 1.4 - 2.5 mg/dL CBC with auto differential Collection Time: 08/20/20 2:46 AM Result Value Ref Range WBC 9.8 3.8 - 9.9 K/cumm Hgb 12.7 (L) 13.0 - 17.5 g/dL Hct 37.2 (L) 38.9 - 50.3 % Plt 340 150 - 400 K/cumm MPV 9.9 9.1 - 12.3 fL RBC 4.24 (L) 4.30 - 5.80 M/cumm MCV 87.7 81.3 - 96.4 fL MCH 30.0 27.1 - 33.3 pg MCHC 34.1 32.3 - 35.7 g/dL RDW CV 12.2 11.1 - 14.9 % RDW SD 39.2 35.7 - 48.1 fL NRBC abs 0.00 0.00 - 0.01 K/cumm Differential, auto Collection Time: 08/20/20 2:46 AM Result Value Ref Range Neutrophil abs 9.1 (H) 1.7 - 6.5 K/cumm Imm gran abs 0.0 0.0 - 0.1 K/cumm Lymphocyte abs 0.6 (L) 0.8 - 3.3 K/cumm Monocyte abs 0.1 (L) 0.2 - 0.8 K/cumm Eosinophil abs 0.0 0.0 - 0.5 K/cumm Basophil abs 0.0 0.0 - 0.1 K/cumm Neutrophil pct 93.0 % Imm gran pct 0.3 % Lymphocyte pct 5.8 % Monocyte pct 0.8 % Eosinophil pct 0.0 % Basophil pct 0.1 % Assessment/Plan : Chadd Recio is a 70 y.o. man with h/o seizures, COPD, HTN p/w abdominal pain, diarrhea, LE petechial rash. ?? #Petechial rash/bloody diarrhea Presenting with abdominal pain and diarrhea associated with eating for nearly a month, today with new bloody diarrhea x3. Suspect infective (HUS, meningococcal infection, amebiasis) vs hematological (TTP ITP) vs autoimmune vasculitis (HSP, ANCA vasculitis, BAH, cryoglobulinemia) also r/o drug reaction (carbamazepine). Recent history of bloody diarrhea since 07/23. Went to OSH and received levaquin a nd flagyl for colitis. WBC 15.3, Plt 433, Hgb 15.2, Eosinophil 0.2, Urine 2+ blood and 11-20 RBC. Plan: Diagnostic: - UA w/ RBC as above. Cr 0.93. UPr/Cr 99.2. - ESR 31, CRP 47.8. JONNA 1:160 (speckled), dsDNA 6.0. C3/C4 wnl. RF neg. BRAYAN pending. - HIV, hepatitis panel neg, GC neg - F/u BCx and stool cx, fecal calprotectin - F/u skin biopsy results - F/u OSH C-scope and biopsy report (from [facility], [place], [place], done 08/10/20, records request sent 08/19/20) Therapeutic: - S/p pred 90mg x2 (08/19, ), plan for pred 80mg qd (08/21 on) and f/u response. If improved GI sx by Saturday, would consider taper w/ 60x1wk, 40x1kw, 20x1wk, 10x1wk, 5x1wk, off. - Triamcinolone 0.1% bid to itchy lesions (not to face) - Hold on abx for now given low suspicion for infection - CBC q12, T&S, trf if Hgb<7, consent in chart ?? #Seizure disorder Seizure free on current Sz meds for 30+ yrs, reports that he has been on same meds for about 28 years. -continue carbamazepine ER 600 BID -continue valproate 500 mg QID ? #HTN -Home quinapril 40 to lisinopril 40 -Continue home HCTZ 25 ?? #CAD OSH cath 2016 with mild CAD 25% stenosis of RCA, normal EF 70% -cont ASA, atorva ?? #COPD 40 year pack per day smoking history, quit 10 years ago. - home stiolto -->anoro ellipta - fluticasone #FENGI: Adult regular #Ppx: DVT ppx w/ Lovenox 40mg subq qd. #Dispo: Home when medically stable #Full Code Electronically signed by: Jose Maloney MD PGY-1 08/20/2020, 6:36 AM Please check Amion to find on-call list. Generally, the medicine teams are here until 4:30 PM M-F when not on-call. training development specialist days, teams are here until 8 PM. On non-call weekend days, check Amion for the on-call team who are likely providing cross-coverage. Cosigned by Lorne Carmona MD at 08/21/2020 4:38 PM CDT Associated attestation - Loren Carmona MD - 08/21/2020 4:38 PM CDT I have seen and examined the patient on 08/20/20. I agree with the findings and plan of care as documented in the resident's/fellow's note. * Anna Lockhart RN - 08/19/2020 9:05 AM CDT CM Initial Assessment Interview Note Information Obtained From: Patient (08/19/20904) Admission Source: NON-HEALTH CARE FACILITY Impression: 70-year-old male, admitted for melena Plan Includes: patient anticipates being discharged to home with no additional needs Primary Source of Transportation: Does the patient need discharge transport arranged?: No (ride, per family) (08/19/20904) Health Insurance Coverage: BCBS Prescription Coverage: YES Pharmacy: [facility] Primary Care Provider: Stephan Juarez MD Prior to Admission: Primary Caregiver: Self Support System: Spouse/Significant Other, Children, Friends/neighbors Support system contact info (name, phone, availablity): ALEXANDRA RECIO [phone] Home Care Services: No Durable Medical Equipment: None Living Arrangements: Spouse/significant other Type of Residence: Private residence Steps in home? : No steps inside or outside Medication management: (patient manages his medications independently) (08/19/20904) Potential discharge needs include: Home Health: (NONE) (08/19/20904) Dialysis: N/A Behavioral Health Services:NONE Patient expects to be Discharged to: Private residence, (08/19/20904) Additional Information: Patient's , Alexandra, is inpatient on 9200. Patient's Identified Problem/Goal Problem: Ensure acute medical [...] Collaboration with patient, MD, direct care nurse, Assistant Therapy Aide, Nurse Coordinator and other members of the health care team to assure needed interventions completed. 2. Return patient to optimal level of self-care post discharge. 3. Mental Health Assistant will follow for Discharge Planning - interventions as needed 4. Anticipated level of care at discharge 5. Planned Discharge Disposition Based on a comprehensive family assessment, assistance with instrumental activities of daily livingafter discharge will be provided by daughterMarci Through the course of our work I determined that the daughter, Marci, possesses the skill and ability to provide and monitor the care of the patient when he or she returns home. Marci has the capacity to provide/monitor/arrange for the care of the patient. Finally, we determined that Marci has the knowledge of available resources and that combining them with their existing resources will suffice to sustain and care for the patient when he or she returns home. The treatment team is aware of thisinformation. All are in agreement with the aftercare plan. Anna Lockhart RN documented in this encounter H&P Notes * Lashell Isaac MD - 08/19/2020 2:47 AM CDT Images from the original note were not included. General Medicine History and Physical Subjective Chadd Recio is a 70 y.o. male w/ PMH of seizures, COPD, HTN p/w abdominal pain, diarrhea, LE petechial rash. HPI: Patient reports that beginning 07/23 he began to experience abdominal pain and non-bloody diarrhea almost daily associated with eating. Simultaneously also noted a petechial rash beginning on the dorsum of his bilateral feet. Reports that the rash progressively became more purple and extended caudally throughout the month, has associated pruritis but no ulceration. Pain is diffuse throughout lower abdomen and cramping. Denies nausea, vomiting, dysphagia. History of joint pain due to OA but no fevers, chills, LAD, monoarthritis, joint stiffness, conjunctivitis, skin tightening. Denies any melena or hemateuria throughout his course. For this problem went to OSH from 08/08-08/10 for these symptoms and there was diagnosed with colitis, was given levaquin and flagyl as well as triamcinolone for his rash, which improved pruritis. Lives in [place], no recent visit to [place], no recent tick bites. Monogamous with one partner (). 40 years of 1 PPD smoking quit since 10 years ago, alcohol use every few months, no drug use. Today he made eggs int he morning and ate them, subsequently had 3 bowel movements with bright red diarrhea that prompted presentation to [facility] ED. On arrival to ED afebrile, HR 111, RR 18, BP 144/88, 95%, BMP wnl, leukocytosis to 15.3 (neutrophilpredominant), Hgb 15.2, Plt 433. INR 1.1, aPTT 32, denae negative. CT A/P with contrast was obtained which showed colitis at hepatic flexture with small volume simple free pelvic fluid. Also incidental finding of hyperdense left renal nodule. Started on Cipro/flagyl in the ED. Past Medical History: Diagnosis Date ??? COPD (chronic obstructive pulmonary disease) (CMS/HCC) ??? Headache ??? Seizures (CMS/HCC) Past Surgical History: Procedure Laterality Date ??? HERNIA REPAIR (Not in a hospital admission) No Known Allergies Social History Tobacco Use ??? Smoking status: Former Smoker Quit date: 09/17/2016 Years since quittin.9 ??? Smokeless tobacco: Never Used Substance Use Topics ??? Alcohol use: Defer History reviewed. No pertinent family history. Review of Systems Review of systems per HPI and otherwise all other systems are negative Objective Vitals: Arrival Vitals [08/18/20 1840] Temp 36.2 ??C (97.1 ??F) Pulse 111 Resp 18 BP 144/88 SpO2 95 % Temp src Heart Rate Source Patient Position BP Location FiO2 (%) 24hr Min/Max: Temp Min: 36.2 ??C (97.1 ??F) Max: 36.2 ??C (97.1 ??F) Pulse Min: 111 Max: 111 BP Min: 144/88 Max: 144/88 Resp Min: 18 Max: 18 SpO2 Min: 95 % Max: 95 % Most Recent : Vitals: 08/18/200 BP: 144/88 Pulse: 111 Resp: 18 Temp: 36.2 ??C (97.1 ??F) SpO2: 95% No intake/output data recorded. No intake/output data recorded. Physical Exam: General: In no acute distress, resting comfortably HEENT: PERRLA, EOMI, Sclera nonicteric. Moist mucous membranes. Cardiac: Regular rate and rhythm. No murmurs, rubs, or gallops. Pulmonary: Clear to auscultation bilaterally. Abdomen: Soft, nondistended, mildy tender in lower quadrant, not increased with palpation. Extremities: No edema. Warm and well perfused. Skin: diffuse petechia rash extending from bilateral dorsum of feet to mid abdomen and bilateral forearms Neurologic: A/O x 3, nonfocal and grossly intact Psychiatric: Normal mood and affect Lab/Radiology/Diagnostic Review: Recent Results (from the past 24 hour(s)) CBC with auto differential Collection Time: 08/18/20 6:50 PM Result Value Ref Range WBC 15.3 (H) 3.8 - 9.9 K/cumm Hgb 15.2 13.0 - 17.5 g/dL Hct 44.8 38.9 - 50.3 % Plt 433 (H) 150 - 400 K/cumm MPV 11.0 9.1 - 12.3 fL RBC 5.07 4.30 - 5.80 M/cumm MCV 88.4 81.3 - 96.4 fL MCH 30.0 27.1 - 33.3 pg MCHC 33.9 32.3 - 35.7 g/dL RDW CV 12.7 11.1 - 14.9 % RDW SD 39.7 35.7 - 48.1 fL NRBC abs 0.00 0.00 - 0.01 K/cumm Basic metabolic panel Collection Time: 08/18/20 6:50 PM Result Value Ref Range Sodium 138 135 - 145 mmol/L Potassium, pl See Comment 3.3 - 4.9 mmol/L Chloride 105 97 - 110 mmol/L CO2 24 22 - 32 mmol/L Anion gap 9 2 - 15 mmol/L BUN 12 8 - 25 mg/dL Creatinine 0.64 (L) 0.80 - 1.30 mg/dL Glucose 94 70 - 199 mg/dL Calcium 8.9 8.5 - 10.3 mg/dL Type and screen Collection Time: 08/18/20 6:50 PM Result Value Ref Range Denae, indirect Negative ABO Rh O Positive Differential, auto Collection Time: 08/18/20 6:50 PM Result Value Ref Range Neutrophil abs 12.4 (H) 1.7 - 6.5 K/cumm Imm gran abs 0.1 0.0 - 0.1 K/cumm Lymphocyte abs 1.7 0.8 - 3.3 K/cumm Monocyte abs 0.9 (H) 0.2 - 0.8 K/cumm Eosinophil abs 0.2 0.0 - 0.5 K/cumm Basophil abs 0.1 0.0 - 0.1 K/cumm Neutrophil pct 80.7 % Imm gran pct 0.4 % Lymphocyte pct 11.4 % Monocyte pct 5.9 % Eosinophil pct 1.2 % Basophil pct 0.4 % Check Sample Collection Time: 08/19/20 12:05 AM Result Value Ref Range ABO Rh O Positive Potassium, whole blood Collection Time: 08/19/20 12:05 AM Result Value Ref Range Potassium, bld 3.7 3.3 - 4.9 mmol/L Protime-INR Collection Time: 08/19/20 12:05 AM Result Value Ref Range PT 12.4 9.5 - 13.6 sec INR 1.1 0.9 - 1.2 aPTT Collection Time: 08/19/20 12:05 AM Result Value Ref Range aPTT 32 27 - 37 sec Influenza A/B, RSV, and COVID-19 PCR Nasopharyngeal Collection Time: 08/19/20 12:05 AM Specimen: Nasopharyngeal Result Value Ref Range Influenza A RNA Negative Negative Influenza B RNA Negative Negative RSV RNA Negative Negative COVID-19 RNA Negative Negative Employeed in healthcare? No status? No Group care resident? No Hospitalized? No Is patient in ICU? No Symptomatic as defined by CDC? No Fibrinogen Collection Time: 08/19/20 12:05 AM Result Value Ref Range Fibrinogen 601 (H) 170 - 400 mg/dL Urinalysis reflex to microscopic and culture Urine Collection Time: 08/19/20 12:22 AM Specimen: Urine Result Value Ref Range Color, ur Yellow Yellow Clarity, ur Cloudy (A) Clear Specific gravity, ur 1.020 1.010 - 1.025 pH, urine 6 Protein, ur ql 1+ (A) Negative Glucose, ur ql Negative Negative Ketones, ur Negative Negative Bilirubin, ur Negative Negative Blood, ur 2+ (A) Negative Urobilinogen, ur <2.0 <2.0 mg/dL Nitrite, ur Negative Negative Leukocyte esterase, ur Negative Negative UA reflex comment Reflex to microscopic UA will be performed. Urinalysis, microscopic only Collection Time: 08/19/20 12:22 AM Result Value Ref Range WBC, ur 0-5 0 - 5 /HPF RBC, ur 11-20 (A) 0 - 2 /HPF Epithelial cells, squamous, ur 1-5 0 - 5 /HPF Mucous, ur Present (A) Hyaline casts, ur 1-5 0 - 10 /LPF Culture Reflex Comment Reflex conditions for urine culture (WBC >10) not met. I have reviewed the above laboratory results. Additional lab tests: Imaging Results: CT Abdomen Pelvis W Contrast Result Date: 08/19/2020 1. Colitis at the hepatic flexure with small volume simple free pelvic fluid. 2. Hyperdense left renal nodule. Recommend follow up renal ultrasound. Recommend follow up of the Incidental renal noduleAdditional Imaging In 6 Months with renal ultrasound or MRI. Dictated by: Sheldon Luu M.D. Additional diagnostic/procedure review: Assessment/Plan Chadd Recio is a 70 yo M w/ PMH of seizures, COPD, HTN p/w abdominal pain, diarrhea, LE petechial rash. #Petechial rash/bloody diarrhea Presenting with abdominal pain and diarrhea associated with eating for nearly a month, today with new bloody diarrhea x3. Suspect infective (HUS, meningococcal infection, amebiasis) vs hematological (TTP ITP) vs autoimmune vasculitis (HSP, ANCA vasculitis, BAH, cryoglobulinemia) also r/o drug reaction (carbamazepine). Recent history of bloody diarrhea since 07/23. Went to OSH and received levaquin a nd flagyl for colitis. WBC 15.3, Plt 433, Hgb 15.2, Eosinophil 0.2, Urine 2+ blood and 11-20 RBC -JONNA, ANCA, RF, C3, C4, ESR, CRP, also consider BRAYAN -HIV, hepatitis panel, urine GC -fecal calprotectin, also consider screening for celiac -derm or rheum c/s with biopsy -will hold abx as he had undergone a course of Cipro/Flagyl with no significant improvement, likelynot infectious colitis #Seizure disorder Seizure free on current Sz meds for 30+ yrs, reports that he has been on same meds for about 28 years. -continue carbamazepine ER 600 BID -continue valproate 500 mg QID #HTN -Home quinapril 40 to lisinopril 40 -Continue home HCTZ 25 #CAD OSH cath 2017 with mild CAD 25% stenosis of RCA, normal EF 70% -cont ASA, atorva #COPD 40 year pack per day smoking history, quit 10 years ago. -home stiolto -->anoro ellipta -fluticasone Code Status: Full Code Diet: Clear Liquids DVT Prophylaxis: lovenox Access: PIV Lashell Isaac MD 08/19/2020 3:27 AM Cosigned by Loren Carmona MD at 08/19/2020 1:55 PM CDT Associated attestation - Loren Carmona MD - 08/19/2020 1:55 PM CDT I have seen and examined the patient on 08/19/20. I agree with the findings and plan of care as documented in the resident's/fellow's note. 70 yo M with hx of COPD, HTN, seizures who presents with 1 mo history of abdominal pain, diarrhea, and progressive LE and truncal rash. Was admitted for symptoms earlier in July at OSH, imaging c/f colitis and was treated with levaquin and flagyl without improvement. Underwent c-scope during admission and was told everything was normal. Rash then progressed to involve entire LE and up to trunk andarms. Started having BRBPR x3 yesterday. Never had these symptoms prior to initial onset. Denies any other URIs or clear infectious symptoms in weeks prior to onset, no sick contacts, no travel. Lives in [place]. No new medications prior to symptom onset. Former smoker, quit 10 yrs ago. Was using e- cigs previously was all. Denies other drug use. Reports subjective fevers, no chills, no weight changes. Exam notable for nonblanchable purupric rash invovling LE, buttocks, abdomen, upper extremities bilaterally, nontender. Abdomen S, NT, ND, +BS. Labs notable for leukocytosis 15.3, neutrophilic predominance. Cr 0.6 (c/w baseline). UA with microscopic hematuria. Albumin 2.7. Imaging with inflammation of colon near hepatic flexure, c/w colitis.Also incidental L renal nodule. Had CT chest in 2018 which showed L pulm nodule. Agree with suspicion for small vessel vasculitis as etiology of symptoms, particularly HSP/IgA vasculitis. Also consider infectious etiology, drug reaction though no recent medication changes that would be consistent. Pt on carbamazepine chronically for seizures, does not have appearance of SJS. Derm c/s for biopsy, likely will need to initiate steroids given progressive symptoms without improvement. Will f/u rheum workup as outlined below. Pt had recent c-scope. Will obtain CXR to f/u pulm nodule, consider CT. documented in this encounter Consult Notes * Claude Mcintyre MD - 08/24/2020 10:43 AM CDTAssociated Order(s): IP CONSULT TO RHEUMATOLOGY Images from the original note were not included. Rheumatology Consult Name: Chadd Recio Today: August 24, 2020 : 1950 Age: 70 y.o. male Reason for Consult: Concern for vasculitis Requesting Provider: Dr. Isaac Subjective HPI: Chadd Recio is a 70 y.o. male with chief complaint of had concerns including Black orBloody Stool. He reports that he ate chicken wings around the beginning of May; shortly thereafter, he began having abdominal pain and diarrhea. Around the same time, he developed a purple, itchy rash on his lower legs and abdomen. For this, he presented to OSH from 08/08-08/10. He was treated with Levaquin/Flagyl for colitis and triamcinolone for the itching. Despite these treatments, he continued to have abdominal pain; he noted hematochezia on 08/19 and presented to [place] for further evaluation. Upon arrival, WBC was 15.3, Hgb 15.2, Plt 433, UA noted 2+ blood with 11-[address] A/P noted colitis at hepatic flexure. Nephrology was concerned for IgA vasculitis due to the co-occurrence of the rash, GI symptoms and microscopic hematuria. They recommended ANCA testing and skin biopsy for diagnostic clarity. JONNA was 1:160 with a speckled pattern, dsDNA Ab was indeterminate at 6, anti-BRAYAN and ANCA were negative. Dermatology performed skin biopsy and recommended starting prednisone 80 mg for suspected small vessel vasculitis. Skin biopsy noted perivascular and intersitial mixed inflammatory cell infiltrate with lymphocytes, histiocytes, eosinophils, and neutrophils. Immunofluorescence was negative for IgG, IgA, IgM, C3 and fibrinogen. He received 2 days of prednisone 90 mg -> 80 mg x 4 days. On 08/23, hewas noted to have 5 minutes of diplopia. CTA head noted atherosclerosis but was without evidence ofintracranial vasculitis. Today, he reports that his symptoms have greatly improved. He denies abdominal pain or diarrhea at this time. His rash has improved. He denies fever, chills, nausea, vomiting, visual changes, oral ulcers, chest pain, SOB, dysuria, new skin rashes, psychiatric disturbance. Review of Systems: () Weight Loss, () Fatigue, () Fever, () Hair Loss, () Headache, () Scalp Tenderness, () Jaw Claudication, () h/o Scleritis/Episcleritis, () h/o Iritis/Uveitis, () Oral/Nasal Ulcers, () Epistaxis, ()Dry Eyes, () Dry Mouth, (+) Rash, (+) arthritis in bilateral MCPs, worse in the cold, () Photosensit ivity, () Skin Ulcers, () Purpura/Petechiae, () Skin Tightening, () Pleurisy, () Pericarditis/Pericardial effusion, () Reflux, () Abdominal pain, () Blood in stool, () Enthesitis, () Dactylitis, () Back Pain, () Raynaud's, () DVT/PE, () miscarriages (>T2-T3) Scheduled Meds:[Held by Provider] aspirin, 81 mg, oral, Daily atorvastatin, 40 mg, oral, Daily carBAMazepine, 600 mg, oral, BID enoxaparin, 40 mg, subcutaneous, Daily-2100 fluticasone furoate, 1 puff, inhalation, Daily hydroCHLOROthiazide, 25 mg, oral, Daily insulin lispro, 1-2 Units, subcutaneous, Nightly insulin lispro, 1-3 Units, subcutaneous, TID with meals lisinopriL, 40 mg, oral, Daily predniSONE, 80 mg, oral, Daily ramelteon, 8 mg, oral, Nightly rOPINIRole, 0.5 mg, oral, Nightly sodium chloride 0.9%, 0.5-20 mL, intra-catheter, Q8H AMILCAR umeclidinium-vilanteroL, 1 puff, inhalation, Daily valproate, 500 mg, oral, QID Continuous Infusions: PRN Meds:.??? acetaminophen ??? albuterol HFA ??? dextrose OR dextrose ??? glucagon ??? oxyCODONE ??? sodium chloride 0.9% ??? triamcinolone Past Medical History: Diagnosis Date ??? COPD (chronic obstructive pulmonary disease) (CMS/HCC) ??? Headache ??? Seizures (CMS/HCC) Past Surgical History: Procedure Laterality Date ??? HERNIA REPAIR Medications Prior to Admission Medication Sig Dispense Refill Last Dose ??? atorvastatin (LIPITOR) 20 mg tablet ??? carBAMazepine ER (CARBATROL) 300 mg 12 hr capsule ??? meloxicam (MOBIC) 15 mg tablet Take 1 tablet (15 mg total) by mouth daily. 30 tablet 2 ??? oxyCODONE-acetaminophen (PERCOCET) 5-325 mg per tablet Take 1 tablet by mouth. ??? VENTOLIN HFA 90 mcg/actuation inhaler No Known Allergies Social History Socioeconomic History ??? Marital status: Spouse name: Not on file ??? Number of children: Not on file ??? Years of education: Not on file ??? Highest education level: Not on file Tobacco Use ??? Smoking status: Former Smoker Quit date: 09/17/2016 Years since quittin.9 ??? Smokeless tobacco: Never Used Substance and Sexual Activity ??? Alcohol use: Defer ??? Drug use: Defer History reviewed. No pertinent family history. Objective Vitals: 24hr Min/Max: Temp Min: 36.9 ??C (98.4 ??F) Max: 37.4 ??C (99.3 ??F) Pulse Min: 63 Max: 71 BP Min: 130/74 Max: 139/76 Resp Min: 18 Max: 18 SpO2 Min: 92 % Max: 94 % Most Recent: BP 130/74 (BP Location: Right arm, Patient Position: HOB 30 degrees) Pulse 63 Temp 37 ??C (98.6??F) (Axillary) Resp 18 Ht 177.8 cm (5' 10 ) Wt 94.3 kg (208 lb) SpO2 93% BMI 29.84 kg/m?? GEN: Well developed, well nourished. Not in any acute distress. HEENT: EOMI. Moist oral mucosa. No oral lesions. Anicteric, non-injected sclera. CV: Regular rate and rhythm. PULM: Breathing comfortably on room air. Equal chest rise. ABD: Soft, non tender, non distended MSK: No joint swelling. SKIN: Rash on left lower leg (Much improved from pictures from 08/18). EXT: No edema. NEURO: Alert and oriented to person, place and time PSYCH: Appropriate affect. I/O last 2 completed shifts: In: 1020 [P.O.:1000; I.V.:20] Out: 200 [Urine:200] No intake/output data recorded. Lab/Radiology/Diagnostic Review: Reviewed Assessment and Plan: Assessment /Plan Principal Problem: Petechiae Active Problems: Chronic obstructive pulmonary disease with acute exacerbation (CMS/HCC) Chadd Recio is a 70 year old male with PMH significant for COPD who presented with abdominal pain, bloody diarrhea, microscopic hematuria, and rash. His constellation of symptoms are consistent with a possible small vessel vasculitis. The atypical features of his case are 1. He is older than the t ypical age of onset and 2. The skin biopsy was without IgA immunofluorescence. Regardless, it appears that his symptoms have greatly improved with prednisone therapy. - Would recommend continuing prednisone taper: 60x1wk, 40x1kw, 20x1wk, 10x1wk, off. - Would recommend Bactrim and prednisone PPX until at 20 mg of prednisone. - Will have him follow-up with Rheumatology as an outpatient to ensure that his symptoms continue to improve and that he does not have a recurrence. Please help us more easily facilitate scheduling patient and decrease rate of loss to follow up by notifying our service few days prior to discharge so we can schedule patient for OP rheumatology clinic post-hospital visit. Thank you for the interesting consult. During the week feel free to call with any questions. Duringthe weekend page the fellow lead recreation assistant. Patient was seen with and case was discussed with Rheumatology Attending, Dr. Maco Mcintyre MD Internal Medicine Resident August 24, 2020 10:46 AM Cosigned by Maude Dewey MD at 08/25/2020 7:24 AM CDT Associated attestation - Maude Dewey MD - 08/25/2020 7:24 AM CDT I have seen and examined the patient on 08/24/2020. I agree with the findings and plan of care as documented in the resident's/fellow's note.. * Samantha Antonio MD - 08/19/2020 1:14 PM CDTAssociated Order(s): IP CONSULT TO NEPHROLOGY NEPHROLOGY INITIAL CONSULT NOTE Reason for Consult: Hematuria and petechia w/ c/f vasculitis Requesting Provider: Román Hernandez MD Chief Complaint: Rash and abdominal pain History of Presenting Illness: Chadd Recio is 70 y.o. year old male, with past medical history of hypertension, COPD, nephrolithiasis, epilepsy, who presented to the hospital with rash and abdominal pain. Renal consultation isrequested for the management of microscopic hematuria. Patient developed persistent diarrhea the beginning of July, around 07/25. He was briefly hospitalized and treated with a fluoroquinolone and Flagyl. Around 08/10, he began to develop diffuse rash involving bilateral lower extremities > bilateral upper extremities, flank/lower back and buttocks. Minimal anterior truncal involvement. Rash is not associated with pain. He continues to have persistent nonbloody diarrhea which is also associated with abdominal cramping. No changes in his urine output. No changes in the appearance of urine. Family history: No family history of kidney disease or autoimmune disease Social history: Social drinker, nonsmoker ROS: As per HPI. All other systems are negative. Past Medical History: Diagnosis Date ??? COPD (chronic obstructive pulmonary disease) (CMS/HCC) ??? Headache ??? Seizures (CMS/HCC) Past Surgical History: Procedure Laterality Date ??? HERNIA REPAIR Social History Socioeconomic History ??? Marital status: Spouse name: Not on file ??? Number of children: Not on file ??? Years of education: Not on file ??? Highest education level: Not on file Occupational History ??? Not on file Tobacco Use ??? Smoking status: Former Smoker Quit date: 09/17/2016 Years since quittin.9 ??? Smokeless tobacco: Never Used Substance and Sexual Activity ??? Alcohol use: Defer ??? Drug use: Defer ??? Sexual activity: Not on file Other Topics Concern ??? Not on file Social History Narrative ??? Not on file Social Determinants of Health Financial Resource Strain: ??? Difficulty of Paying Living Expenses: Food Insecurity: ??? Worried About Running Out of Food in the Last Year: ??? Ran Out of Food in the Last Year: Transportation Needs: ??? Lack of Transportation (Medical): ??? Lack of Transportation (Non-Medical): Physical Activity: ??? Days of Exercise per Week: ??? Minutes of Exercise per Session: Stress: ??? Feeling of Stress : Social Connections: ??? Frequency of Communication with Friends and Family: ??? Frequency of Social Gatherings with Friends and Family: ??? Attends [employer] Services: ??? Active Member of Clubs or Organizations: ??? Attends Club or Organization Meetings: ??? Marital Status: Intimate Partner Violence: ??? Fear of Current or Ex-Partner: ??? Emotionally Abused: ??? Physically Abused: ??? Sexually Abused: History reviewed. No pertinent family history. No Known Allergies Medications Prior to Admission Medication Sig Dispense Refill Last Dose ??? atorvastatin (LIPITOR) 20 mg tablet ??? carBAMazepine ER (CARBATROL) 300 mg 12 hr capsule ??? meloxicam (MOBIC) 15 mg tablet Take 1 tablet (15 mg total) by mouth daily. 30 tablet 2 ??? oxyCODONE-acetaminophen (PERCOCET) 5-325 mg per tablet Take 1 tablet by mouth. ??? VENTOLIN HFA 90 mcg/actuation inhaler Medications A) Scheduledaspirin, 81 mg, oral, Daily atorvastatin, 40 mg, oral, Daily carBAMazepine, 600 mg, oral, BID enoxaparin, 40 mg, subcutaneous, Daily-2100 fluticasone furoate, 1 puff, inhalation, Daily (RT) hydroCHLOROthiazide, 25 mg, oral, Daily lisinopriL, 40 mg, oral, Daily rOPINIRole, 0.5 mg, oral, Nightly sodium chloride 0.9%, 0.5-20 mL, intra-catheter, Q8H AMILCAR umeclidinium-vilanteroL, 1 puff, inhalation, Daily (RT) valproate, 500 mg, oral, QID B) Infusions, if prescribed C) PRN, if prescribed ??? acetaminophen ??? albuterol HFA ??? oxyCODONE ??? sodium chloride 0.9% ??? triamcinolone Intake and Output Intake/Output Summary (Last 24 hours) at 08/19/2020 1314 Last data filed at 08/19/2020 0959 Gross per 24 hour Intake 1300 ml Output 100 ml Net 1200 ml Vital Signs Vitals: 08/19/20 0400 08/19/20 0505 08/19/20 0914 BP: 146/90 134/73 Pulse: 74 68 Resp: 20 20 Temp: 36.7 ??C (98.1 ??F) SpO2: 93% 92% 95% Physical Examination BP 134/73 Pulse 68 Temp 36.7 ??C (98.1 ??F) (Oral) Resp 20 Ht 177.8 cm (5' 10 ) Wt 93 kg (205 lb) SpO2 95% BMI 29.41 kg/m?? Physical Exam Vitals and nursing note reviewed. HENT: Head: Normocephalic and atraumatic. Eyes: General: No scleral icterus. Cardiovascular: Rate and Rhythm: Normal rate and regular rhythm. Heart sounds: Normal heart sounds. No murmur heard. No friction rub. No gallop. Pulmonary: Effort: Pulmonary effort is normal. No respiratory distress. Breath sounds: Normal breath sounds. No wheezing or rales. Abdominal: General: There is no distension. Palpations: Abdomen is soft. Tenderness: There is no abdominal tenderness. There is no guarding or rebound. Musculoskeletal: General: Normal range of motion. Skin: General: Skin is warm and dry. Findings: Rash (Diffuse rash involving bilateral upper lower extremity, buttocks, flank/back. Minimal truncal involvement over the anterior aspect) present. Neurological: Mental Status: He is alert and oriented to person, place, and time. Psychiatric: Mood and Affect: Affect normal. Judgment: Judgment normal. Vascular Access Exam: Not applicable Laboratory/Imaging/Diagnostic Review Recent Labs Lab Units 08/19/20 0615 08/18/20 1850 SODIUM mmol/L -- 138 POTASSIUM PLASMA mmol/L -- See Comment CHLORIDE mmol/L -- 105 CO2 mmol/L -- 24 BUN SERUM mg/dL -- 12 CREATININE mg/dL -- 0.64* GLUCOSE mg/dL -- 94 CALCIUM mg/dL -- 8.9 ALBUMIN g/dL 2.7* -- Recent Labs Lab Units 08/18/20 1850 WBC K/cumm 15.3* HEMOGLOBIN g/dL 15.2 HEMATOCRIT % 44.8 PLATELETS K/cumm 433* Results for orders placed during the hospital encounter of 08/18/20 US Kidney Complete Narrative EXAMINATION: COMPLETE RENAL SONOGRAM HISTORY: 70-year-old man with incidentally identified 6 mm left renal lesion on contrast enhanced CT. COMPARISON: CT 08/19/2020 FINDINGS: Kidneys: The echogenicity of both kidneys is normal. The kidneys are normal in size. The right kidney measures 12.7 cm in length, and the left, 13.7 cm in length. There is no hydronephrosis in either kidney. There are no renal calculi visualized. There is a 8 x 5 x 7 mm hypodense exophytic lesion in the interpolar region of the left kidney without demonstratable internal vascularity. The subcentimeter size of this lesion is below the resolution of ultrasound to definitively characterize as cystic or solid. Additionally, there are simple cysts in the upper poles of both kidneys. Bladder: The urinary bladder is normal Impression Subcentimeter exophytic lesion in the interpolar region of the left kidney correlates with the CT finding and remains indeterminant although favored to be benign given lack of any convincing suspicious feature. Recommend follow up in 6-12 months. Dictated by: Tierney Meadows M.D. ASSESSMENT AND PLAN Microscopic hematuria -normal baseline creatinine of 0.6 mg/dL -urinalysis with proteinuria and hematuria -urine sediment with RBCs: non dysmorphic, occasionally crenated with 1-2 questionable RBC casts Workup -positive JONNA, speckled pattern, 1:160 -indeterminate dsDNA at 6 -normal C3 and C4 Recommendations Concern for IgA vasculitis due to co-occurrence of rash, gastrointestinal symptoms and microscopic hematuria. Patient has already undergone skin biopsy by Dermatology today - H&E as well as immunofluorescence. If skin biopsy is low yield, may consider renal biopsy for diagnostic purposes, sinceIgA vasculitis is a multi systemic disease. Please hold aspirin in the interim. Also, please check ANCA with reflex to MPO and PR3 and spot urine protein creatinine ratio to complete work up. Hypertension Continue home hydrochlorothiazide and lisinopril Incidental renal cyst Multiple renal cysts. Subcentimeter exophytic lesion in the interpolar region of the left kidney. Can be followed up on an outpatient basis. Thank you for your consult. 08/19/20 Samantha Antonio MD Nephrology Fellow, PGY-V Consult 1 Service Contact (phone): [phone] After hours and weekends: please page [phone] Cosigned by Ronnie Brady MD at 08/20/2020 10:25 AM CDT Associated attestation - Ronnie Brady MD - 08/20/2020 10:25 AM CDT I have seen and examined the patient on 08/20/20. I agree with the findings and plan of care as documented in the resident's/fellow's note.. 70 yr old WM PMHx HTN/kidney stones. Consulted for microscopic hematuria. Patient developed persistent diarrhea the beginning of July, around 07/25. He was briefly hospitalized and treated with a fluoroquinolone and Flagyl. Around 08/10, he began to develop diffuse rash involving bilateral lower extremities > bilateral upper extremities, flank/lower back and buttocks. Minimal anterior truncal involvement. Rash is not associated with pain. He continues to have persistent nonbloody diarrhea which is also associated with abdominal cramping. Today on exam, persistent non blanching indolent rash on Le's. Preserved renal function. UA 1+ Protein. Awaiting skin Bx. Diagnosis Compatible with IgA Vasculitis. Pending ANCA testing * Danny Medina MD - 08/19/2020 9:52 AM CDTAssociated Order(s): IP CONSULT TO DERMATOLOGY Dermatology Consult Reason for Consult: Skin biopsy for possible vasculitis Requesting Provider: Haider Chief Complaint: Patient is a 70 y.o. male with chief complaint of rash. HPI: Past medical history including COPD, hypertension, seizures, presenting with abdominal pain, diarrhea and rash.. Started on feet around 07/30, has spread to involve the whole legs and abdomen. He has ahistory of joint pains from osteoarthritis but these are about at baseline (no new joint pains). Hewas seen at outside hospital 08/08/20 through 08/10/20 was diagnosed with colitis, given Levaquin andFlagyl, and triamcinolone for the rash. After discharge did have 1 episode of bright red diarrhea so he came to the [facility] ED. Prior to this episode of rash he was in normal state of health, no recent illnesses. No new medications. Labs since arrival, including creatinine 0.6, WBC 15. HIV, hepatitis negative other than surface antibody positive. Complement is normal. Rheumatoid factor negative, elevated CRP and ESR. Urine with 2+ blood and 1+ protein. CT showing colonic thickening. He reportedly had a c-scope at the outside hospital, record transfer is pending. Past Medical History: Diagnosis Date ??? COPD (chronic obstructive pulmonary disease) (CMS/HCC) ??? Headache ??? Seizures (CMS/HCC) Past Surgical History: Procedure Laterality Date ??? HERNIA REPAIR Medications Prior to Admission Medication Sig Dispense Refill Last Dose ??? atorvastatin (LIPITOR) 20 mg tablet ??? carBAMazepine ER (CARBATROL) 300 mg 12 hr capsule ??? meloxicam (MOBIC) 15 mg tablet Take 1 tablet (15 mg total) by mouth daily. 30 tablet 2 ??? oxyCODONE-acetaminophen (PERCOCET) 5-325 mg per tablet Take 1 tablet by mouth. ??? VENTOLIN HFA 90 mcg/actuation inhaler No Known Allergies Social History Tobacco Use ??? Smoking status: Former Smoker Quit date: 09/17/2016 Years since quittin.9 ??? Smokeless tobacco: Never Used Substance Use Topics ??? Alcohol use: Defer History reviewed. No pertinent family history. Review of Systems: Review of systems per HPI and otherwise all other systems are negative. Vitals: 24hr Min/Max: Temp Min: 36.2 ??C (97.1 ??F) Max: 36.7 ??C (98.1 ??F) Pulse Min: 68 Max: 111 BP Min: 134/73 Max: 146/90 Resp Min: 18 Max: 20 SpO2 Min: 92 % Max: 95 % Most Recent: Vitals: 08/19/20 0914 BP: Pulse: Resp: Temp: SpO2: 95% Physical Exam: Gen: WD, WN, NAD; Neuro: A&O; Psyc: Normal mood and affect; Skin exam: Inspected the Scalp/Hair, Head/Face, Conjunctivae/Lids, Oropharynx/Lips, Neck, R. Upper Extremity, L. Upper Extremity, Chest/Breast, Abdomen, Back, R. Lower Extremity, L. Lower Extremity, Buttocks Examination normal with the following exceptions: Diffuse purpura, some palpable, legs, abd, buttocks, arms Lab/Radiology/Diagnostic Review: Per HPI and - JONNA, ANCA, RF, C3, C4, ESR, CRP, urine GC, pending - fecal calprotectin pending ASSESSMENT and PLAN: Favor small vessel vasculitis. With hematuria and hematochezia. - biopsy H&E and DIF 08/19. Right thigh. Remove sutures 08/30. Change vaseline/bandage daily. - f/u labs as above - check blood cultures r/o infection (low suspicion) - consult to nephrology for suspected renal involvement - consult to GI pending - Start triamcinolone 0.1% ointment BID prn to any itchy lesions, NOT to face. Dispense 454g tub. - pending eval by GI (or records from prior GI consult at OSH) and nephrology, would start prednisone 80mg PO daily. Thank you for the consult. Dermatology will continue to follow. For any questions M-F 8am-5pm, please call [phone]. For urgent questions nights and weekends, please call [phone]. 08/19/20 Danny Medina MD PGY-4 Dermatology Resident Cosigned by Meli Cornejo MD at 08/23/2020 9:23 AM CDT Associated attestation - Meli Cornejo MD - 08/23/2020 9:23 AM CDT ATTESTATION: I have seen and examined the patient, on 08/19/2020. I agree with the findings and plan of care as documented in the resident's note. Meli Cornejo MD documented in this encounter ED Notes * Román Hernandez MD - 08/18/2020 11:43 PM CDT Images from the original note were not included. HPI Chief Complaint Patient presents with ??? Black or Bloody Stool HPI Chadd Recio is a 70 y.o. male w/ PMH of seizures, COPD, HTN, recent dx of colitis who p/w lowerabdominal pain w bloody diarrhea and worsening LE rash. Pt states has had lower abdo pain w bloody diarrhea since 07/23, states was admitted 08/08- at OSH, Rx w abx for collitis. Has been off abx since Saturday. States had resolution of sx, but since y'd hashad severe lower abdo pain w bloody diarrhea. Mild nausea, no vomiting. No fevers. No CP or SOB. Endorses good PO intake,. Mild dysuria w/o blood. Pt also notes a rash to b/l LE since 07/23, progressive, starting from feet to entire legs and now lower abdomen. Mildly pruritic. No hx of same prior to 07/23. Patient History: Patient Active Problem List Diagnosis Date Noted ??? Petechiae 08/19/2020 ??? Chronic obstructive pulmonary disease with acute exacerbation (CMS/HCC) Past Medical History: Diagnosis Date ??? COPD (chronic obstructive pulmonary disease) (CMS/HCC) ??? Headache ??? Seizures (CMS/HCC) Past Surgical History: Procedure Laterality Date ??? HERNIA REPAIR History reviewed. No pertinent family history. Social History Tobacco Use ??? Smoking status: Former Smoker Quit date: 09/17/2016 Years since quittin.9 ??? Smokeless tobacco: Never Used Substance Use Topics ??? Alcohol use: Defer ??? Drug use: Defer Social History Social History Narrative ??? Not on file MEDS & ALLERGIES: No current facility-administered medications on file prior to encounter. Current Outpatient Medications on File Prior to Encounter Medication Sig Dispense Refill ??? atorvastatin (LIPITOR) 20 mg tablet ??? carBAMazepine ER (CARBATROL) 300 mg 12 hr capsule ??? meloxicam (MOBIC) 15 mg tablet Take 1 tablet (15 mg total) by mouth daily. 30 tablet 2 ??? oxyCODONE-acetaminophen (PERCOCET) 5-325 mg per tablet Take 1 tablet by mouth. ??? VENTOLIN HFA 90 mcg/actuation inhaler No Known Allergies Review of Systems REVIEW OF SYSTEMS: ROS: Denies fevers. All others negative except as mentioned in the HPI Physical Exam Vitals: 08/19/20 0400 BP: 146/90 Pulse: 74 Resp: 20 Temp: SpO2: 93% Physical Exam - CONSTITUTIONAL: uncomfortable 2/2 pain. - HEAD: Normocephalic, atraumatic. - EYES: EOMI, no conjunctival injection. - CARDS: Regular rate and rhythm, no murmurs appreciated. - RESP: Breath sounds clear b/l. Breathing unlabored. - ABD: Soft, lower abdominal tenderness w/o guarding or rebound. - EXT: no lower extremity edema. no obvious deformities - SKIN: Warm and dry. Non palpable petechiae to b/l LE and abdomen and R inner arm. no mucosal involvement - NEURO: Alert, CN intact. Motor grossly intact w no focal abnormality Clinical lab tests: reviewed Tests in the radiology section of CPT??: reviewed Nursing notes reviewed MDM MDM Chadd Recio is a 70 y.o. male with above PMH p/w lower abdo pain w bloody stools, also w progressive petechiae LE and abdomen. Appears uncomfortable. PLT normal. DDx: vasculitis, colitis, diverticulitis, less likely DIC, ITP/TTP (give normal PLT). Will get further coag studies, CT a/P. hgb is stable. dispo per clinical course and workup, howver anticipate admission for further workup. Dann Aldana MD Portions of the record may have been created with voice recognition software. Occasional wrong-word or '[id number]' substitutions may have occurred due to the inherent limitations of voice recognition software. Read the chart carefully and recognize, using context, where substitutions have occurred. Attending Summary of Care Pt. Presents with progressive petechial rash which started on his feet and moved upward, associatedwith abdominal pain and diarrhea, for which he was previously CT'd, found to have colitis, and hospitalized. Completed a course of levaquin and flagyl. Today had bloody BMs and called doctor and was told to come to ED. Presentation c/w vasculitis of uncertain etiology though infectious seems most likely. Admit for further workup/evaluation. ED Course as of August 19 007 Time: 08/19 53 Comment: S/o to firm By: Dann Aldana MD Time: 08/19 106 Value: RBC, ur(!): 11-20 Comment: (Reviewed) By: Dann Aldana MD Time: 08/20 107 Comment: IMPRESSION: 1. Colitis at the hepatic flexure with small volume simple free pelvic fluid. 2. Hyperdense left renal nodule. Recommend follow up renal ultrasound. By: Dann Aldana MD Time: 08/19 153 Comment: Pt takes carbamazepine 600mg BID and valproic acid 500mg QID (per pt) - ordered By: Dann Aldana MD 1. Petechiae 2. Colitis 3. Renal lesion Román Hernandez MD 08/19/20 [id number] * Romy Pearl RN - 08/18/2020 11:13 PM CDT Bed: ED1-06 Expected date: Expected time: Means of arrival: Ambulance Comments: Romy Pearl RN 08/18/20 [id number] * Livia Dorado RN - 08/18/2020 6:41 PM CDT Pt BIBEMS c/o bloody stools and bilateral lower quadrant abdominal pain/cramping x1 day. Pmhx colitis, COPD, HTN, seizures. Pt reports 5-6 bright red bloody bowel movements today. A&Ox4. documented in this encounter Miscellaneous Notes * Plan of Care - José Miguel Piedra MD - 08/24/2020 3:37 PM CDT Rheumatology Sign Off Recommendations Diagnosis: leukocytoclastic vasculitis PMD: Stephan Donald MD Rheumatology Attending: Dr. Maude Dewey Indication for admission: skin rash, abdominal pain Medication Recommendations: - prednisone taper of 60mg daily for 1 week, then 40mg daily for 1 week, 20mg for 1 week and stop - recommend bactrim DS MWF for PCP prophylaxis while prednisone>20mg daily - recommend pantoprazole 40mg daily for stress ulcer prophylaxis Labs/Frequency to be Monitored: Plan to repeat blood work at outpatient rheumatology follow up appointment Imaging Required Before Follow Up: No need for repeat imaging Summary of Consultation: 70yo with COPD who presented with abdominal pain, purpura skin rash involving trunk and extremities, microscopic hematuria. 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 Normal complements. Seen by dermatology and renal service and concerned for IgA vasculitis. After rheumat ology evaluation, patient's symptoms are consistent with possible IgA vasculitis but age of onset and lack of IgA deposition on biopsy are not consistent. Patient will be steroid taper with plan to monitor clinical symptoms since IgA vasculitis tends to be self-isolated. If symptoms return, consider repeat skin biopsy or pursue renal biopsy as next step Readmission risk: low Follow Up Plan: (Please provide the information below to the patient) ??? Appointment date: 11/25/2020 at 10:30am ??? Location: [address], [address] [place] [address] ??? Rheumatology clinic number [phone] Cosigned by Maude Dewey MD at 08/25/2020 7:21 AM CDT * Hospital Course - Lashell Isaac MD - 08/24/2020 3:21 PM CDT #Petechial rash Nonblanchable purpuric rash present on lower extremities since 07/23 (around time of diarrhea onset).Progressed from dorsum of feet to involve entire lower extremities, abdomen, and now upper extremities. WBC 15.3, Plt 433, Hgb 15.2, Eosinophil 0.2, Urine 2+ blood and 11-20 RBC. LDH wnl and haptoglobin elevated. Due to concern for vasculitis sent autoimmune work up showing ESR 31, CRP 47.8. JONNA 1:160 (speckled), dsDNA 6.0. C3/C4 wnl. RF and anti-BRAYAN neg. ANCA negative. UA w/ RBC. Cr 0.93. UPr/Cr99.2. HIV, hepatitis panel neg, GC neg, and stool culture neg for shiga toxin. BC's NGTD. Dermatology consulted and he underwent biopsy showing vasculitis negative for IgG, IgA, IgM, C3 and fibrinogen. 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 Dermatology also planning to follow up with patient in clinic. He was started on pred 90mg x2 (08/19, ) and decreased to pred 80mg qd (08/21-08/24) with significant improvement of rash. At discharge rheumatology recommended taper w/ 60x1wk, 40x1kw, 20x1wk, 10x1wk off, with PCP prophylaxis and PPI. ?? #Hematochezia #Anemia #Diarrhea Presenting with abdominal pain and diarrhea associated with eating for nearly a month, presented with new bloody diarrhea x3. Recent history of bloody diarrhea since 07/23. Went to OSH and received levaquin and flagyl for colitis. Suspect possible vasculitic involvement >> ischemic colitis >> AVM's/diverticular bleed. CT A/P 08/19: Colonic thickening at the hepatic flexure w/ small volume simple free pelvic fluid likely is colitis vs colon cancer. OSH ([place]) c- scope showed moderatesegmental inflammation in the proximal ascending colon. Colitis is erythematous, edematous, granular. No mucosal bleeding. Path results w/ slight neutrophilic infilatration of surface epithelium with some crypt abscesses. No significant distortion of the glandular architecture is present. No evidence of lamina propria fibrosis or glandular dropout. Reviewed CT a/p w/ contrast with radiology and all vasculature is patent. Do not recommend further imaging. Stool culture negative for shiga toxin.C. Diff neg. Due to concern for vasculitis patient was started on prednisone and subsequently had no additional bloody BMs. Hgb dropped from 15 on presenation to ~12 but remained stable subsequently. ?? #Seizure disorder Seizure free on current Sz meds for 30+ yrs, reports that he has been on same meds for about 28 years. Continued carbamazepine ER 600 BID and valproate??500 mg QID. During admission had some complaints of double vision that resolved spontaneously. Did order CTA head which showed no acute intracranial abnormality and no CT angiogram evidence of vasculitic process. Did also obtain depakote level whichwas 45. ? #HTN -Home quinapril 40??to??lisinopril 40 during hospitalization -Continued home??HCTZ 25 ?? #CAD OSH cath 2016 with mild CAD 25% stenosis of RCA, normal EF 70% -continued atorva. Held ASA for possible renal biopsy but resumed on discharge ?? #COPD 40 year pack per day smoking history, quit 10 years ago. - home stiolto -->anoro ellipta - fluticasone ?? #ANGLE Per patient, diagnosed with ANGLE several months ago but does not have CPAP at home yet. Working on insurance coverage. -Hospital-provided CPAP at night, will need to follow up outpatient for home unit * Plan of Care - Rylee Milian RRT - 08/24/2020 4:51 AM CDT Patient refuses to wear cpap at night. RT will continue to encourage patient to wear and will continue to monitor. * Plan of Care - Steph Macias RN - 08/23/2020 9:29 PM CDT Problem: Lack of Knowledge: Goal: Ability to state ways to decrease the risk of falls will improve Outcome: Progressing Problem: Safety: Goal: Will remain free from falls Outcome: Progressing Goal: Will remain free from injury from falls Outcome: Progressing Goal: Will remain free from falls and injury in home environment Outcome: Progressing Problem: Health Behavior: Goal: Understanding of discharge needs will improve Outcome: Progressing * Plan of Care - Radha Helton RN - 08/23/2020 12:53 PM CDT Goals: Patient will remain free from falls and all other injuries. Clinical Goals for the Shift: safety Summary: Patient is compliant with the call light and demonstrates safe transfer from the bed to the chair. All high risk fall interventions will remain in place for this patient. Will continue to monitor patient. Problem: Lack of Knowledge: Goal: Ability to state ways to decrease the risk of falls will improve Outcome: Progressing Problem: Safety: Goal: Will remain free from falls Outcome: Progressing Goal: Will remain free from injury from falls Outcome: Progressing Goal: Will remain free from falls and injury in home environment Outcome: Progressing Problem: Health Behavior: Goal: Understanding of discharge needs will improve Outcome: Progressing * Plan of Care - Rylee Milian RRT - 08/23/2020 3:57 AM CDT Patient refused to wear cpap last night.. RT will continue to encourage patient to wear, and will monitor. * Plan of Care - Ema Ortiz RN - 08/22/2020 11:05 PM CDT Problem: Lack of Knowledge: Goal: Ability to state ways to decrease the risk of falls will improve Outcome: Progressing Problem: Safety: Goal: Will remain free from falls Outcome: Progressing Goal: Will remain free from injury from falls Outcome: Progressing Goal: Will remain free from falls and injury in home environment Outcome: Progressing Problem: Health Behavior: Goal: Understanding of discharge needs will improve Outcome: Progressing Goals: Clinical Goals for the Shift: safety Summary: * Plan of Care - Radha Helton RN - 08/22/2020 11:44 AM CDT Problem: Lack of Knowledge: Goal: Ability to state ways to decrease the risk of falls will improve Outcome: Progressing Problem: Safety: Goal: Will remain free from falls Outcome: Progressing Goal: Will remain free from injury from falls Outcome: Progressing Goal: Will remain free from falls and injury in home environment Outcome: Progressing Problem: Health Behavior: Goal: Understanding of discharge needs will improve Outcome: Progressing Goals: Patient will remain free from falls and all other injuries. Clinical Goals for the Shift: safety Summary: Patient has demonstrated that he can safely transfer without issue. Patient is compliant with the use of the call light and does not attempt to exit if he feels dizzy. All high risk fall interventions remain in place for this patient. Will continue to monitor patient. * Plan of Care - Ema Ortiz RN - 08/22/2020 5:02 AM CDT Problem: Lack of Knowledge: Goal: Ability to state ways to decrease the risk of falls will improve Outcome: Progressing Problem: Safety: Goal: Will remain free from falls Outcome: Progressing Goal: Will remain free from injury from falls Outcome: Progressing Goal: Will remain free from falls and injury in home environment Outcome: Progressing Problem: Health Behavior: Goal: Understanding of discharge needs will improve Outcome: Progressing Goals: Clinical Goals for the Shift: safety Summary: * Plan of Care - Elo Cleaning RRT - 08/22/2020 2:11 AM CDT Patient wore NPPV overnight, plan is to continue to wear nightly for ANGLE * Plan of Care - Radha Helton RN - 08/21/2020 12:26 PM CDT Problem: Lack of Knowledge: Goal: Ability to state ways to decrease the risk of falls will improve Outcome: Progressing Problem: Safety: Goal: Will remain free from falls Outcome: Progressing Goal: Will remain free from injury from falls Outcome: Progressing Goal: Will remain free from falls and injury in home environment Outcome: Progressing Problem: Health Behavior: Goal: Understanding of discharge needs will improve Outcome: Progressing Goals: Patient will remain free from falls and all other injuries. Clinical Goals for the Shift: safety Summary: Patient has continued to demonstrate safe transfers to and from the restroom. No unsafe behaviors have been observed. All moderate fall risk interventions will remain in place. Will continueto monitor patient. * Plan of Care - Ema Ortiz RN - 08/21/2020 4:45 AM CDT Problem: Lack of Knowledge: Goal: Ability to state ways to decrease the risk of falls will improve Outcome: Progressing Problem: Safety: Goal: Will remain free from falls Outcome: Progressing Goal: Will remain free from injury from falls Outcome: Progressing Goal: Will remain free from falls and injury in home environment Outcome: Progressing Problem: Health Behavior: Goal: Understanding of discharge needs will improve Outcome: Progressing Goals: Clinical Goals for the Shift: Monitor vitals, labs Summary: * Plan of Care - Radha Helton RN - 08/20/2020 3:09 PM CDT Problem: Lack of Knowledge: Goal: Ability to state ways to decrease the risk of falls will improve Outcome: Progressing Problem: Safety: Goal: Will remain free from falls Outcome: Progressing Goal: Will remain free from injury from falls Outcome: Progressing Goal: Will remain free from falls and injury in home environment Outcome: Progressing Problem: Health Behavior: Goal: Understanding of discharge needs will improve Outcome: Progressing Goals: Patient will remain free from falls and all other injuries. Clinical Goals for the Shift: Monitor vitals, labs Summary: Patient has been compliant with the use of the call light. Patient reports mild episodes of dizziness, but is able to use the wheeled walker. All high risk fall interventions remain in placefor patient, will continue to monitor . * Plan of Care - Jb Cantrell RRT - 08/20/2020 9:12 AM CDT PT with COPD on RA, no distress, Arnuity and Anoro Ellipta ordered Daily Plan: RN to administer * Plan of Care - Ema Ortiz RN - 08/20/2020 6:15 AM CDT Problem: Lack of Knowledge: Goal: Ability to state ways to decrease the risk of falls will improve Outcome: Progressing Problem: Safety: Goal: Will remain free from falls Outcome: Progressing Goal: Will remain free from injury from falls Outcome: Progressing Goal: Will remain free from falls and injury in home environment Outcome: Progressing Problem: Health Behavior: Goal: Understanding of discharge needs will improve Outcome: Progressing Goals: Clinical Goals for the Shift: Monitor vitals, labs Summary: * Plan of Care - Marina Austin RN - 08/19/2020 7:27 AM CDT Goals: Clinical Goals for the Shift: Monitor vitals, labs Summary: Problem: Lack of Knowledge: Goal: Ability to state ways to decrease the risk of falls will improve Outcome: Progressing Problem: Safety: Goal: Will remain free from falls Outcome: Progressing Goal: Will remain free from injury from falls Outcome: Progressing Goal: Will remain free from falls and injury in home environment Outcome: Progressing * Plan of Care - Anna Mg RN - 08/19/2020 6:02 AM CDT Goals: Remain free from falls, monitor vital signs, management of pain Summary: Problem: Lack of Knowledge: Goal: Ability to state ways to decrease the risk of falls will improve Outcome: Progressing Problem: Safety: Goal: Will remain free from falls Outcome: Progressing Goal: Will remain free from injury from falls Outcome: Progressing Goal: Will remain free from falls and injury in home environment Outcome: Progressing documented in this encounter Plan of Treatment Not on file documented as of this encounter Procedures Procedure Name Priority Date/Time Associated Diagnosis Comments POCT GLUCOSE DEVICE Routine 08/24/2020 1 2:03 PM CDT DIFFERENTIAL AUTO Timed 08/24/2020 9:1 5 AM CDT CBC WITH AUTO DIFFERENTIAL Timed 08/24/2020 9:15 AM CDT POCT GLUCOSE DEVICE Routine 08/24/2020 8 :19 AM CDT DIFFERENTIAL AUTO Timed 08/23/2020 11: 04 PM CDT CBC WITH AUTO DIFFERENTIAL Timed 08/23/2020 11:04 PM CDT MAGNESIUM Routine 08/23/2020 11:04 PM CDT VALPROIC ACID LEVEL, TOTAL Routine 08/23/2020 11:04 PM CDT COMPREHENSIVE METABOLIC PANEL Routine 08/23/2020 11:04 PM CDT POCT GLUCOSE DEVICE Routine 08/23/2020 8 :22 PM CDT POCT GLUCOSE DEVICE Routine 08/23/2020 4 :35 PM CDT CTA HEAD W WO CONTRAST ED Urgent/IP Urgent 08/23/2020 11:59 AM CDT POCT GLUCOSE DEVICE Routine 08/23/2020 1 1:29 AM CDT POCT GLUCOSE DEVICE Routine 08/23/2020 1 0:28 AM CDT DIFFERENTIAL AUTO Timed 08/23/2020 8:1 1 AM CDT CBC WITH AUTO DIFFERENTIAL Timed 08/23/2020 8:11 AM CDT POCT GLUCOSE DEVICE Routine 08/23/2020 7 :51 AM CDT DIFFERENTIAL AUTO Timed 08/22/2020 11: 27 PM CDT CBC WITH AUTO DIFFERENTIAL Timed 08/22/2020 11:27 PM CDT MAGNESIUM Routine 08/22/2020 11:27 PM CDT COMPREHENSIVE METABOLIC PANEL Routine 08/22/2020 11:27 PM CDT POCT GLUCOSE DEVICE Routine 08/22/2020 8 :27 PM CDT POCT GLUCOSE DEVICE Routine 08/22/2020 4 :36 PM CDT POCT GLUCOSE DEVICE Routine 08/22/2020 1 2:44 PM CDT DIFFERENTIAL AUTO Timed 08/22/2020 10: 15 AM CDT CBC WITH AUTO DIFFERENTIAL Timed 08/22/2020 10:15 AM CDT POCT GLUCOSE DEVICE Routine 08/22/2020 8 :10 AM CDT LUPUS ANTICOAGULANT PANEL PLUS REFLEXES Routine 08/22/2020 3:38 AM CDT DIFFERENTIAL AUTO Timed 08/22/2020 3:3 8 AM CDT CBC WITH AUTO DIFFERENTIAL Timed 08/22/2020 3:38 AM CDT TYPE AND SCREEN Timed 08/22/2020 3:38 AM CDT MAGNESIUM Routine 08/22/2020 3:38 AM CDT COMPREHENSIVE METABOLIC PANEL Routine 08/22/2020 3:38 AM CDT POCT GLUCOSE DEVICE Routine 08/21/2020 1 0:20 PM CDT POCT GLUCOSE DEVICE Routine 08/21/2020 5 :50 PM CDT HEMOGLOBIN AND HEMATOCRIT STAT 08/21/2020 4:02 PM CDT MAGNESIUM STAT 08/21/2020 4:02 PM CDT BASIC METABOLIC PANEL STAT 08/21/2020 4:02 PM CDT POCT GLUCOSE DEVICE Routine 08/21/2020 3 :58 PM CDT DIFFERENTIAL AUTO Timed 08/21/2020 12: 35 PM CDT CBC WITH AUTO DIFFERENTIAL Timed 08/21/2020 12:35 PM CDT POCT GLUCOSE DEVICE Routine 08/21/2020 1 2:29 PM CDT POCT GLUCOSE DEVICE Routine 08/21/2020 7 :37 AM CDT DIFFERENTIAL AUTO Timed 08/21/2020 3:3 8 AM CDT CBC WITH AUTO DIFFERENTIAL Timed 08/21/2020 3:38 AM CDT POCT GLUCOSE DEVICE Routine 08/20/2020 7 :53 PM CDT DIFFERENTIAL AUTO Timed 08/20/2020 4:5 4 PM CDT CBC WITH AUTO DIFFERENTIAL Timed 08/20/2020 4:54 PM CDT MAGNESIUM Routine 08/20/2020 4:54 PM CDT COMPREHENSIVE METABOLIC PANEL Routine 08/20/2020 4:54 PM CDT POCT GLUCOSE DEVICE Routine 08/20/2020 4 :38 PM CDT POCT GLUCOSE DEVICE Routine 08/20/2020 1 :08 PM CDT DIFFERENTIAL AUTO STAT 08/20/2020 8:1 8 AM CDT CBC WITH AUTO DIFFERENTIAL STAT 08/20/2020 8:18 AM CDT C. DIFFICILE TESTING Routine 08/20/2020 2:46 AM CDT DIFFERENTIAL AUTO Routine 08/20/2020 2:4 6 AM CDT CALPROTECTIN, FECAL Routine 08/20/2020 2 :46 AM CDT VRE CULTURE, SURVEILLANCE Routine 08/20/2020 2:46 AM CDT CBC WITH AUTO DIFFERENTIAL Routine 08/20/2020 2:46 AM CDT STOOL CULTURE Routine 08/20/2020 2:46 AM CDT MAGNESIUM Routine 08/20/2020 2:46 AM CDT LACTATE DEHYDROGENASE Routine 08/20/2020 2:46 AM CDT HAPTOGLOBIN Routine 08/20/2020 2:46 AM CDT COMPREHENSIVE METABOLIC PANEL Routine 08/20/2020 2:46 AM CDT PROTEIN / CREATININE RATIO, URINE, RANDOM Routine 08/19/2020 5:24 PM CDT BLOOD CULTURE STAT 08/19/2020 12:39 PM CDT BLOOD CULTURE STAT 08/19/2020 12:39 PM CDT XR CHEST PA LATERAL 2 VIEWS IP Routine 08/19/2020 12:11 PM CDT US KIDNEY COMPLETE IP Routine 08/19/2020 11 :51 AM CDT SURGICAL PATHOLOGY Routine 08/19/2020 10 :53 AM CDT N. GONORRHOEAE/C. TRACHOMATIS AMPLIFICATION Routine 08/19/2020 9:59 AM CDT JONNA REFLEX TO QUANTITATIVE AND DSDNA Timed 08/19/2020 6:15 AM CDT ANTI-DOUBLE STRANDED DNA ANTIBODIES Timed 08/19/2020 6:15 AM CDT C4 COMPLEMENT Timed 08/19/2020 6:15 AM CDT BRAYAN ANTIBODY EVALUATION WITH REFLEX Timed 08/19/2020 6:15 AM CDT HIV 1/2 ANTIBODY PLUS P24 ANTIGEN Timed 08/19/2020 6:15 AM CDT ANTI-NEUTROPHILIC CYTOPLASMIC ANTIBODY (ANCA) WITH REFLEX TO MPO AND PR3 ABS Timed 08/19/2020 6:15 AM CDT HEPATITIS C ANTIBODY Timed 08/19/2020 6:15 AM CDT HEPATITIS B CORE ANTIBODY, TOTAL Timed 08/19/2020 6:15 AM CDT HEPATITIS B SURFACE ANTIBODY (IMMUNE STATUS) Timed 08/19/2020 6:15 AM CDT HEPATITIS B SURFACE ANTIGEN Timed 08/19/2020 6:15 AM CDT ERYTHROCYTE SEDIMENTATION RATE Timed 08/19/2020 6:15 AM CDT RHEUMATOID FACTOR Timed 08/19/2020 6:1 5 AM CDT C3 COMPLEMENT Timed 08/19/2020 6:15 AM CDT CRP (ACUTE PHASE) Timed 08/19/2020 6:1 5 AM CDT HEPATIC FUNCTION PANEL Timed 08/19/2020 6:[address] ABDOMEN PELVIS W CONTRAST ED 08/19/2020 12:44 AM CDT URINALYSIS AND REFLEX TO MICROSCOPIC AND CULTURE STAT 08/19/2020 12:22 AM CDT URINALYSIS, MICROSCOPIC ONLY STAT 08/19/2020 12:22 AM CDT INFLUENZA A/B, RSV, AND COVID-19 PCR Routine 08/19/2020 12:05 AM CDT POTASSIUM, WHOLE BLOOD STAT 08/19/2020 12:05 AM CDT B CHECK SAMPLE STAT 08/19/2020 12:05 AM CDT APTT STAT 08/19/2020 12:05 AM CDT PROTIME-INR STAT 08/19/2020 12:05 AM CDT FIBRINOGEN STAT 08/19/2020 12:05 AM CDT DIFFERENTIAL AUTO STAT 08/18/2020 6:5 0 PM CDT CBC WITH AUTO DIFFERENTIAL STAT 08/18/2020 6:50 PM CDT TYPE AND SCREEN STAT 08/18/2020 6:50 PM CDT BASIC METABOLIC PANEL STAT 08/18/2020 6:50 PM CDT documented in this encounter Results * POCT glucose (08/24/2020 12:03 PM CDT) Pathologist [facility] [place] Glucose, POC 121 70 - 199 mg/dL [facility] Blood specimen (specimen) 08/24/2020 12:03 PM CDT 08/24/2020 12:03 PM CDT us Amaad Rashawn Carmona MD LAB POCT ORDERABLES - DEVIC E Final Result [facility] Department [place] [address] * (ABNORMAL) Differential, auto (08/24/2020 9:15 AM CDT) Pathologist [facility] [place] Neutrophil abs 4.3 1.7 - 6.5 K/cumm [facility] Imm gran abs 0.0 0.0 - 0.1 K/cumm [facility] Lymphocyte abs 3.9(H) 0.8 - 3.3 K/cumm [facility] Monocyte abs 0.5 0.2 - 0.8 K/cumm [facility] Eosinophil abs 0.1 0.0 - 0.5 K/cumm [facility] Basophil abs 0.0 0.0 - 0.1 K/cumm [facility] Neutrophil pct 48.5 % [facility] Comment: Interpretive Data Percent cell count reference ranges are not reported, since discordance with absolute values may lead to misinterpretation of CBC data. Current Interpretive Data was last revised on 2017. Imm gran pct 0.5 % [facility] Comment: Interpretive Data Percent cell count reference ranges are not reported, since discordance with absolute values may lead to misinterpretation of CBC data. Current Interpretive Data was last revised on 2017. Lymphocyte pct 43.8 % [facility] Comment: Interpretive Data Percent cell count reference ranges are not reported, since discordance with absolute values may lead to misinterpretation of CBC data. Current Interpretive Data was last revised on 2017. Monocyte pct 5.8 % [facility] Comment: Interpretive Data Percent cell count reference ranges are not reported, since discordance with absolute values may lead to misinterpretation of CBC data. Current Interpretive Data was last revised on 2017. Eosinophil pct 1.1 % [facility] Comment: Interpretive Data Percent cell count reference ranges are not reported, since discordance with absolute values may lead to misinterpretation of CBC data. Current Interpretive Data was last revised on 2017. Basophil pct 0.3 % [facility] Comment: Interpretive Data Percent cell count reference ranges are not reported, since discordance with absolute values may lead to misinterpretation of CBC data. Current Interpretive Data was last revised on 2017. Blood specimen (specimen) 08/24/2020 9:15 AM CDT 08/24/2020 9:33 AM CDT us Amaad Rashawn Carmona MD LAB BLOOD ORDERABLES Final Result [facility] Department [place] [address] * CBC with auto differential (08/24/2020 9:15 AM CDT) Pathologist [facility] [place] WBC 8.8 3.8 - 9.9 K/cumm [facility] Hgb 13.7 13.0 - 17.5 g/dL [facility] Hct 40.4 38.9 - 50.3 % [facility] Plt 372 150 - 400 K/cumm [facility] MPV 9.8 9.1 - 12.3 fL [facility] RBC 4.61 4.30 - 5.80 M/cumm [facility] MCV 87.6 81.3 - 96.4 fL [facility] MCH 29.7 27.1 - 33.3 pg [facility] MCHC 33.9 32.3 - 35.7 g/dL [facility] RDW CV 12.5 11.1 - 14.9 % [facility] RDW SD 39.8 35.7 - 48.1 fL [facility] NRBC abs 0.00 0.00 - 0.01 K/cumm [facility] Blood specimen (specimen) 08/24/2020 9:15 AM CDT 08/24/2020 9:33 AM CDT us Loren Carmona MD LAB BLOOD ORDERABLES Final Result Performing Organization Address [facility] Co de Phone Number [facility] Department [place] [address] * POCT glucose (08/24/2020 8:19 AM CDT) Pathologist [facility] [place] Glucose, POC 95 70 - 199 mg/dL [facility] Blood specimen (specimen) 08/24/2020 8:19 AM CDT 08/24/2020 8:19 AM CDT Loren Carmona MD LAB POCT ORDERABLES - DEVIC E Final Result Performing Organization Address [facility] de Phone Number [facility] [place] [address] * (ABNORMAL) Valproic acid level, total (08/23/2020 11:04 PM CDT) Pathologist [facility] [place] Valproic Acid 45.0(L) 50.0 - 100.0 mcg/mL [facility] Comment: Interpretive Data Therapeutic or toxic effects of anticonvulsant drugs may occur at different concentrations in different patients and the correlation between dose and clinical effect must be evaluated individually. Current interpretative data was last revised on 13. Blood specimen (specimen) 08/23/2020 11:04 PM CDT 08/23/2020 11:28 PM CDT Loren Carmona MD LAB BLOOD ORDERABLES Final Result Performing Organization Address [facility] de Phone Number [facility] [place] [address] * Differential, auto (08/23/2020 11:04 PM CDT) Pathologist [facility] [place] Neutrophil abs 5.7 1.7 - 6.5 K/cumm [facility] Imm gran abs 0.1 0.0 - 0.1 K/cumm [facility] Lymphocyte abs 2.9 0.8 - 3.3 K/cumm [facility] Monocyte abs 0.5 0.2 - 0.8 K/cumm [facility] Eosinophil abs 0.0 0.0 - 0.5 K/cumm [facility] Basophil abs 0.0 0.0 - 0.1 K/cumm [facility] Neutrophil pct 62.2 % [facility] Comment: Interpretive Data Percent cell count reference ranges are not reported, since discordance with absolute values may lead to misinterpretation of CBC data. Current Interpretive Data was last revised on 2017. Imm gran pct 0.7 % [facility] Comment: Interpretive Data Percent cell count reference ranges are not reported, since discordance with absolute values may lead to misinterpretation of CBC data. Current Interpretive Data was last revised on 2017. Lymphocyte pct 31.0 % [facility] Comment: Interpretive Data Percent cell count reference ranges are not reported, since discordance with absolute values may lead to misinterpretation of CBC data. Current Interpretive Data was last revised on 2017. Monocyte pct 5.6 % [facility] Comment: Interpretive Data Percent cell count reference ranges are not reported, since discordance with absolute values may lead to misinterpretation of CBC data. Current Interpretive Data was last revised on 2017. Eosinophil pct 0.2 % [facility] Comment: Interpretive Data Percent cell count reference ranges are not reported, since discordance with absolute values may lead to misinterpretation of CBC data. Current Interpretive Data was last revised on 2017. Basophil pct 0.3 % [facility] Comment: Interpretive Data Percent cell count reference ranges are not reported, since discordance with absolute values may lead to misinterpretation of CBC data. Current Interpretive Data was last revised on 2017. Blood specimen (specimen) 08/23/2020 11:04 PM CDT 08/23/2020 11:29 PM CDT us Loren Carmona MD LAB BLOOD ORDERABLES Final Result [facility] Department [place] [address] * Magnesium (08/23/2020 11:04 PM CDT) Magnesium 2.0 1.4 - 2.5 mg/dL [facility] Blood specimen (specimen) 08/23/2020 11:04 PM CDT 08/23/2020 11:28 PM CDT Loren Carmona MD LAB BLOOD ORDERABLES Final Result [facility] [place] [address] * (ABNORMAL) Comprehensive metabolic panel (08/23/2020 11:04 PM CDT) Sodium 141 135 - 145 mmol/L [facility] Potassium, pl 3.7 3.3 - 4.9 mmol/L [facility] Chloride 103 97 - 110 mmol/L [facility] CO2 29 22 - 32 mmol/L [facility] Anion gap 9 2 - 15 mmol/L [facility] BUN 12 8 - 25 mg/dL [facility] Creatinine 0.82 0.80 - 1.30 mg/dL [facility] Glucose 119 70 - 199 mg/dL [facility] Comment: Interpretive Data Fasting glucose >/= [...] interpretive data was last revised 2017. Calcium 9.1 8.5 - 10.3 mg/dL [facility] Bilirubin, total <0.2 0.1 - 1.2 mg/dL [facility] Protein, pl 6.1(L) 6.5 - 8.5 g/dL [facility] Albumin 3.2(L) 3.5 - 5.0 g/dL [facility] Alk phos 68 40 - 130 Units/L [facility] ALT 35 7 - 55 Units/L [facility] AST 22 10 - 50 Units/L [facility] Blood specimen (specimen) 08/23/2020 11:04 PM CDT 08/23/2020 11:28 PM CDT us Amaad Rashawn Carmona MD LAB BLOOD ORDERABLES Final Result [facility] Department [place] [address] * (ABNORMAL) CBC with auto differential (08/23/2020 11:04 PM CDT) Pathologist [facility] [place] WBC 9.2 3.8 - 9.9 K/cumm [facility] Hgb 12.7(L) 13.0 - 17.5 g/dL [facility] Hct 36.8(L) 38.9 - 50.3 % [facility] Plt 370 150 - 400 K/cumm [facility] MPV 9.8 9.1 - 12.3 fL [facility] RBC 4.21(L) 4.30 - 5.80 M/cumm [facility] MCV 87.4 81.3 - 96.4 fL [facility] MCH 30.2 27.1 - 33.3 pg [facility] MCHC 34.5 32.3 - 35.7 g/dL [facility] RDW CV 12.3 11.1 - 14.9 % [facility] RDW SD 39.2 35.7 - 48.1 fL [facility] NRBC abs 0.00 0.00 - 0.01 K/cumm [facility] Blood specimen (specimen) 08/23/2020 11:04 PM CDT 08/23/2020 11:29 PM CDT Loren Carmona MD LAB BLOOD ORDERABLES Final Result Performing Organization Address City/[facility]/ZIP Co de Phone Number [facility] [place] [address] * POCT glucose (08/23/2020 8:22 PM CDT) Pathologist [facility] [place] Glucose, POC 137 70 - 199 mg/dL [facility] Blood specimen (specimen) 08/23/2020 8:22 PM CDT 08/23/2020 8:22 PM CDT Loren Carmona MD LAB POCT ORDERABLES - DEVIC E Final Result [facility] Department [place] [address] * POCT glucose (08/23/2020 4:35 PM CDT) Glucose, POC 120 70 - 199 mg/dL [facility] Blood specimen (specimen) 08/23/2020 4:35 PM CDT 08/23/2020 4:35 PM CDT us Amaad Rashawn Carmona MD LAB POCT ORDERABLES - DEVIC E Final Result [facility] [place] [address] * CTA Head W WO Contrast (08/23/2020 11:59 AM CDT) Anatomical Region Laterality Modality Head and Neck N/A Computed Tomogra phy 08/23/2020 1:03 PM CDT Impressions 08/23/2020 3:25 PM CDT 1. ??No acute intracranial abnormality. 2. ??Mild atherosclerotic disease of intracranial vessels, with mild focal narrowing of the left A2 segment anterior cerebral artery. No CT angiogram evidence of vasculitic process at this time. Dictated by: Petra Little M.D. The radiology attending physician has personally reviewed this study, and had reviewed and/or edited this written report and agrees with it. Electronically signed by: Joselin Seo M.D. Narrative 08/23/2020 3:25 PM CDT EXAMINATION: Computed tomography angiography (CTA) of the [...] with ex vacuo dilatation of the ventricles. ??No mass effect or midline shift is present. [...] aneurysm or vascular malformation identified. Procedure Note Joselin Seo MD - 08/23/2020 EXAMINATION: Computed tomography angiography (CTA) of the [...] or vascular malformation identified. IMPRESSION: 1. No acute intracranial abnormality. 2. Mild [...] it. Electronically signed by: Joselin Seo M.D. Loren Carmona MD IMG CT PROCEDURES Final Res ult * POCT glucose (08/23/2020 11:29 AM CDT) [facility] Signature Glucose, POC 136 70 - 199 mg/dL [facility] Blood specimen (specimen) 08/23/2020 11:29 AM CDT 08/23/2020 11:29 AM CDT Loren Carmona MD LAB POCT ORDERABLES - DEVIC E Final Result Performing Organization Address [facility]/ZIP Co de Phone Number [facility] Department [place] [address] * POCT glucose (08/23/2020 10:28 AM CDT) [facility] Glucose, POC 165 70 - 199 mg/dL [facility] Blood specimen (specimen) 08/23/2020 10:28 AM CDT 08/23/2020 10:28 AM CDT Loren Carmona MD LAB POCT ORDERABLES - DEVIC E Final Result Performing Organization Address City/[facility] Co de Phone Number [facility] [place] [address] * (ABNORMAL) Differential, auto (08/23/2020 8:11 AM CDT) [facility] Neutrophil abs 3.6 1.7 - 6.5 K/cumm [facility] Imm gran abs 0.0 0.0 - 0.1 K/cumm [facility] Lymphocyte abs 4.1(H) 0.8 - 3.3 K/cumm [facility] Monocyte abs 0.6 0.2 - 0.8 K/cumm [facility] Eosinophil abs 0.1 0.0 - 0.5 K/cumm [facility] Basophil abs 0.0 0.0 - 0.1 K/cumm [facility] Neutrophil pct 43.2 % [facility] Comment: Interpretive Data Percent cell count reference ranges are not reported, since discordance with absolute values may lead to misinterpretation of CBC data. Current Interpretive Data was last revised on 2017. Imm gran pct 0.2 % [facility] Comment: Interpretive Data Percent cell count reference ranges are not reported, since discordance with absolute values may lead to misinterpretation of CBC data. Current Interpretive Data was last revised on 2017. Lymphocyte pct 48.5 % [facility] Comment: Interpretive Data Percent cell count reference ranges are not reported, since discordance with absolute values may lead to misinterpretation of CBC data. Current Interpretive Data was last revised on 2017. Monocyte pct 7.1 % [facility] Comment: Interpretive Data Percent cell count reference ranges are not reported, since discordance with absolute values may lead to misinterpretation of CBC data. Current Interpretive Data was last revised on 2017. Eosinophil pct 0.6 % [facility] Comment: Interpretive Data Percent cell count reference ranges are not reported, since discordance with absolute values may lead to misinterpretation of CBC data. Current Interpretive Data was last revised on 2017. Basophil pct 0.4 % [facility] Comment: Interpretive Data Percent cell count reference ranges are not reported, since discordance with absolute values may lead to misinterpretation of CBC data. Current Interpretive Data was last revised on 2017. Blood specimen (specimen) 08/23/2020 8:11 AM CDT 08/23/2020 8:21 AM CDT us Amaad Rashawn Carmona MD LAB BLOOD ORDERABLES Final Result [facility] [place] [address] * (ABNORMAL) CBC with auto differential (08/23/2020 8:11 AM CDT) WBC 8.4 3.8 - 9.9 K/cumm [facility] Hgb 12.4(L) 13.0 - 17.5 g/dL [facility] Hct 36.7(L) 38.9 - 50.3 % [facility] Plt 349 150 - 400 K/cumm [facility] MPV 9.7 9.1 - 12.3 fL [facility] RBC 4.19(L) 4.30 - 5.80 M/cumm [facility] MCV 87.6 81.3 - 96.4 fL [facility] MCH 29.6 27.1 - 33.3 pg [facility] MCHC 33.8 32.3 - 35.7 g/dL [facility] RDW CV 12.3 11.1 - 14.9 % [facility] RDW SD 39.3 35.7 - 48.1 fL [facility] NRBC abs 0.00 0.00 - 0.01 K/cumm [facility] Blood specimen (specimen) 08/23/2020 8:11 AM CDT 08/23/2020 8:21 AM CDT Loren Carmona MD LAB BLOOD ORDERABLES Final Result Performing Organization Address City/[facility]/ZIP Co de Phone Number [facility] [place] [address] * POCT glucose (08/23/2020 7:51 AM CDT) Pathologist [facility] [place] Glucose, POC 86 70 - 199 mg/dL [facility] Blood specimen (specimen) 08/23/2020 7:51 AM CDT 08/23/2020 7:51 AM CDT Loren Carmona MD LAB POCT ORDERABLES - DEVIC E Final Result [facility] [place] [address] * Differential, auto (08/22/2020 11:27 PM CDT) Neutrophil abs 5.2 1.7 - 6.5 K/cumm [facility] Imm gran abs 0.1 0.0 - 0.1 K/cumm [facility] Lymphocyte abs 2.6 0.8 - 3.3 K/cumm [facility] Monocyte abs 0.6 0.2 - 0.8 K/cumm [facility] Eosinophil abs 0.0 0.0 - 0.5 K/cumm [facility] Basophil abs 0.0 0.0 - 0.1 K/cumm [facility] Neutrophil pct 61.7 % [facility] Comment: Interpretive Data Percent cell count reference ranges are not reported, since discordance with absolute values may lead to misinterpretation of CBC data. Current Interpretive Data was last revised on 2017. Imm gran pct 0.6 % [facility] Comment: Interpretive Data Percent cell count reference ranges are not reported, since discordance with absolute values may lead to misinterpretation of CBC data. Current Interpretive Data was last revised on 2017. Lymphocyte pct 30.8 % [facility] Comment: Interpretive Data Percent cell count reference ranges are not reported, since discordance with absolute values may lead to misinterpretation of CBC data. Current Interpretive Data was last revised on 2017. Monocyte pct 6.6 % [facility] Comment: Interpretive Data Percent cell count reference ranges are not reported, since discordance with absolute values may lead to misinterpretation of CBC data. Current Interpretive Data was last revised on 2017. Eosinophil pct 0.1 % [facility] Comment: Interpretive Data Percent cell count reference ranges are not reported, since discordance with absolute values may lead to misinterpretation of CBC data. Current Interpretive Data was last revised on 2017. Basophil pct 0.2 % [facility] Comment: Interpretive Data Percent cell count reference ranges are not reported, since discordance with absolute values may lead to misinterpretation of CBC data. Current Interpretive Data was last revised on 2017. Blood specimen (specimen) 08/22/2020 11:27 PM CDT 08/22/2020 11:37 PM CDT Loren Carmona MD LAB BLOOD ORDERABLES Final Result Performing Organization Address City/[facility] Co de Phone Number [facility] [place] [address] * Magnesium (08/22/2020 11:27 PM CDT) [facility] Magnesium 2.0 1.4 - 2.5 mg/dL [facility] Blood specimen (specimen) 08/22/2020 11:27 PM CDT 08/22/2020 11:37 PM CDT Loren Carmona MD LAB BLOOD ORDERABLES Final Result Performing Organization Address [facility] de Phone Number [facility] Department [place] [address] * (ABNORMAL) Comprehensive metabolic panel (08/22/2020 11:27 PM CDT) [facility] Sodium 141 135 - 145 mmol/L [facility] Potassium, pl 3.4 3.3 - 4.9 mmol/L [facility] Chloride 103 97 - 110 mmol/L [facility] CO2 27 22 - 32 mmol/L [facility] Anion gap 11 2 - 15 mmol/L [facility] BUN 15 8 - 25 mg/dL [facility] Creatinine 0.80 0.80 - 1.30 mg/dL [facility] Glucose 139 70 - 199 mg/dL [facility] Comment: Interpretive Data Fasting glucose >/= [...] interpretive data was last revised 2017. Calcium 8.8 8.5 - 10.3 mg/dL [facility] Bilirubin, total <0.2 0.1 - 1.2 mg/dL [facility] Protein, pl 6.3(L) 6.5 - 8.5 g/dL [facility] Albumin 3.0(L) 3.5 - 5.0 g/dL [facility] Alk phos 73 40 - 130 Units/L [facility] ALT 33 7 - 55 Units/L [facility] AST 22 10 - 50 Units/L [facility] Blood specimen (specimen) 08/22/2020 11:27 PM CDT 08/22/2020 11:37 PM CDT us Amaad Rashawn Carmona MD LAB BLOOD ORDERABLES Final Result [facility] [place] [address] * (ABNORMAL) CBC with auto differential (08/22/2020 11:27 PM CDT) WBC 8.5 3.8 - 9.9 K/cumm [facility] Hgb 12.2(L) 13.0 - 17.5 g/dL [facility] Hct 34.9(L) 38.9 - 50.3 % [facility] Plt 362 150 - 400 K/cumm [facility] MPV 9.8 9.1 - 12.3 fL [facility] RBC 4.03(L) 4.30 - 5.80 M/cumm [facility] MCV 86.6 81.3 - 96.4 fL [facility] MCH 30.3 27.1 - 33.3 pg [facility] MCHC 35.0 32.3 - 35.7 g/dL [facility] RDW CV 12.2 11.1 - 14.9 % [facility] RDW SD 38.8 35.7 - 48.1 fL [facility] NRBC abs 0.00 0.00 - 0.01 K/cumm [facility] Blood specimen (specimen) 08/22/2020 11:27 PM CDT 08/22/2020 11:37 PM CDT us Loren Carmona MD LAB BLOOD ORDERABLES Final Result Performing Organization Address City/[facility]/ZIP Co de Phone Number [facility] [place] [address] * POCT glucose (08/22/2020 8:27 PM CDT) Glucose, POC 110 70 - 199 mg/dL [facility] Blood specimen (specimen) 08/22/2020 8:27 PM CDT 08/22/2020 8:27 PM CDT us Loren Carmona MD LAB POCT ORDERABLES - DEVIC E Final Result Performing Organization Address City/[facility] Co de Phone Number [facility] [place], [place] [id number] * (ABNORMAL) POCT glucose (08/22/2020 4:36 PM CDT) Glucose, POC 214(H) 70 - 199 mg/dL [facility] Glucose comment 1 RN Notified [facility] Blood specimen (specimen) 08/22/2020 4:36 PM CDT 08/22/2020 4:36 PM CDT us Loren Carmona MD LAB POCT ORDERABLES - DEVIC E Final Result Performing Organization Address City/[facility] [place] [address] * POCT glucose (08/22/2020 12:44 PM CDT) Glucose, POC 113 70 - 199 mg/dL [facility] Blood specimen (specimen) 08/22/2020 12:44 PM CDT 08/22/2020 12:44 PM CDT Satinderkali Carmona MD LAB POCT ORDERABLES - DEVIC E Final Result [facility] [place] [address] * Differential, auto (08/22/2020 10:15 AM CDT) Neutrophil abs 4.4 1.7 - 6.5 K/cumm [facility] Imm gran abs 0.0 0.0 - 0.1 K/cumm [facility] Lymphocyte abs 3.1 0.8 - 3.3 K/cumm [facility] Monocyte abs 0.5 0.2 - 0.8 K/cumm [facility] Eosinophil abs 0.0 0.0 - 0.5 K/cumm [facility] Basophil abs 0.0 0.0 - 0.1 K/cumm [facility] Neutrophil pct 54.0 % [facility] Comment: Interpretive Data Percent cell count reference ranges are not reported, since discordance with absolute values may lead to misinterpretation of CBC data. Current Interpretive Data was last revised on 2017. Imm gran pct 0.4 % [facility] Comment: Interpretive Data Percent cell count reference ranges are not reported, since discordance with absolute values may lead to misinterpretation of CBC data. Current Interpretive Data was last revised on 2017. Lymphocyte pct 38.3 % [facility] Comment: Interpretive Data Percent cell count reference ranges are not reported, since discordance with absolute values may lead to misinterpretation of CBC data. Current Interpretive Data was last revised on 2017. Monocyte pct 6.6 % [facility] Comment: Interpretive Data Percent cell count reference ranges are not reported, since discordance with absolute values may lead to misinterpretation of CBC data. Current Interpretive Data was last revised on 2017. Eosinophil pct 0.5 % [facility] Comment: Interpretive Data Percent cell count reference ranges are not reported, since discordance with absolute values may lead to misinterpretation of CBC data. Current Interpretive Data was last revised on 2017. Basophil pct 0.2 % [facility] Comment: Interpretive Data Percent cell count reference ranges are not reported, since discordance with absolute values may lead to misinterpretation of CBC data. Current Interpretive Data was last revised on 2017. Blood specimen (specimen) 08/22/2020 10:15 AM CDT 08/22/2020 10:37 AM CDT us Amaad Rashawn Carmona MD LAB BLOOD ORDERABLES Final Result [facility] [place] [address] * (ABNORMAL) CBC with auto differential (08/22/2020 10:15 AM CDT) WBC 8.1 3.8 - 9.9 K/cumm [facility] Hgb 12.4(L) 13.0 - 17.5 g/dL [facility] Hct 37.2(L) 38.9 - 50.3 % [facility] Plt 373 150 - 400 K/cumm [facility] MPV 9.9 9.1 - 12.3 fL [facility] RBC 4.20(L) 4.30 - 5.80 M/cumm [facility] MCV 88.6 81.3 - 96.4 fL [facility] MCH 29.5 27.1 - 33.3 pg [facility] MCHC 33.3 32.3 - 35.7 g/dL [facility] RDW CV 12.6 11.1 - 14.9 % [facility] RDW SD 40.8 35.7 - 48.1 fL [facility] NRBC abs 0.00 0.00 - 0.01 K/cumm [facility] Blood specimen (specimen) 08/22/2020 10:15 AM CDT 08/22/2020 10:37 AM CDT us Loren Carmona MD LAB BLOOD ORDERABLES Final Result [facility] [place] [address] * POCT glucose (08/22/2020 8:10 AM CDT) Pathologist [facility] [place] Glucose, POC 101 70 - 199 mg/dL [facility] Blood specimen (specimen) 08/22/2020 8:10 AM CDT 08/22/2020 8:10 AM CDT Loren Carmona MD LAB POCT ORDERABLES - DEVIC E Final Result Performing Organization Address City/[facility] Co de Phone Number [facility] [place] [address] * (ABNORMAL) Differential, auto (08/22/2020 3:38 AM CDT) [facility] Neutrophil abs 4.2 1.7 - 6.5 K/cumm [facility] Imm gran abs 0.0 0.0 - 0.1 K/cumm [facility] Lymphocyte abs 3.4(H) 0.8 - 3.3 K/cumm [facility] Monocyte abs 0.5 0.2 - 0.8 K/cumm [facility] Eosinophil abs 0.0 0.0 - 0.5 K/cumm [facility] Basophil abs 0.0 0.0 - 0.1 K/cumm [facility] Neutrophil pct 52.4 % [facility] Comment: Interpretive Data Percent cell count reference ranges are not reported, since discordance with absolute values may lead to misinterpretation of CBC data. Current Interpretive Data was last revised on 2017. Imm gran pct 0.2 % [facility] Comment: Interpretive Data Percent cell count reference ranges are not reported, since discordance with absolute values may lead to misinterpretation of CBC data. Current Interpretive Data was last revised on 2017. Lymphocyte pct 41.4 % [facility] Comment: Interpretive Data Percent cell count reference ranges are not reported, since discordance with absolute values may lead to misinterpretation of CBC data. Current Interpretive Data was last revised on 2017. Monocyte pct 5.7 % [facility] Comment: Interpretive Data Percent cell count reference ranges are not reported, since discordance with absolute values may lead to misinterpretation of CBC data. Current Interpretive Data was last revised on 2017. Eosinophil pct 0.1 % [facility] Comment: Interpretive Data Percent cell count reference ranges are not reported, since discordance with absolute values may lead to misinterpretation of CBC data. Current Interpretive Data was last revised on 2017. Basophil pct 0.2 % [facility] Comment: Interpretive Data Percent cell count reference ranges are not reported, since discordance with absolute values may lead to misinterpretation of CBC data. Current Interpretive Data was last revised on 2017. Blood specimen (specimen) 08/22/2020 3:38 AM CDT 08/22/2020 3:58 AM CDT us Amaad Rashawn Carmona MD LAB BLOOD ORDERABLES Final Result [facility] [place] [address] * (ABNORMAL) Lupus Anticoagulant Panel plus Reflexes (08/22/2020 3:38 AM CDT) PT 12.8 9.5 - 13.6 sec [facility] INR 1.2 0.9 - 1.2 [facility] Comment: Interpretive data Oral anticoagulant therapeutic ranges: Venous thromboembolism prophylaxis or treatment: 2.0-3.0 CARDIOLOGY Standard range: 2.0-3.0 High-intensity range: 2.5-3.5 Refer to indication-specific guidelines for appropriate target ranges for prosthetic heart valve replacement. Current interpretive data was last revised on 2019. aPTT 39(H) 27 - 37 sec [facility] Comment: Interpretive Data Therapeutic heparin range: 60.0 - 94.0 seconds. Based on correlation with therapeutic heparin activity range of 0.3-0.7 Units/mL. Current interpretive data was last revised on 2020. DRVVT screen ratio 1.49(H) 0.00 - 1.20 Ratio [facility] DRVVT confirm ratio 1.27 Ratio [facility] DRVVT S/C Ratio 1.17 0.00 - 1.20 Ratio [facility] SCT Screen Ratio 1.75(H) 0.00 - 1.16 Ratio [facility] SCT Confirm Ratio 1.15 Ratio [facility] SCT S/C Ratio 1.52(H) 0.00 - 1.16 Ratio [facility] Lupus anticoagulant, interp Positive [facility] Comment: Interpretive data ?? Lupus anticoagulants (LA) are acquired autoantibodies that interfere with invitro clotting in a phospholipid-dependent manner and are associated with an increased risk of thromboembolic events and complications. ?? Routine APTT and PT reagents are not sensitive to inhibition by LA, and should not be used as screening tests. ? The laboratory follows ISTH 2009 guidelines (Be, 2009) for LA testing and interpretation: Two sensitive methods performed in parallel improve sensitivity. One activates the intrinsic pathway (Silica-APTT) and one activates the common pathway (dilute Geraldo's viper venom time - dRVVT). ?? Each method begins with a SCREEN step, and if neither is prolonged, no further testing is performed and the interpretation is: NO LA DETECTED. ?? If either screening test is prolonged, then additional steps are performed to provide specificity. A POSITIVE LA result occurs if either one or both tests produce a positive CONFIRM result. ?? An INDETERMINATE result means results cannot distinguish between coagulopathy and a weak LA. Consider retesting when PT/INR is less prolonged, if clinical indicated. ?? To support laboratory confirmation of antiphospholipid syndrome, persistence of a positive LA result should be verified by repeat testing at least 12 weeks later (Ojakis, 2006). ?? Prior to LA testing, the laboratory screens patient plasma samples for evidence of heparin contamination, which is neutralized prior to LA testing, and the following interfering conditions which require canceling LA testing: INR >3.0, fibrinogen < 100 mg/dl, use of direct oral or IV anticoagulants other than heparin. ?? References: 1) Be V, Rodney A, Laurence JH, Orsarbjit TL, Pérez M, De Groot PG. Update of the guidelines for lupus anticoagulant detection. J Thromb Haemost. 2009; 7:8956-5193. 2. Say S. et al. International consensus statement on an update of the classification criteria for definite antiphospholipid syndrome (APS). J Thromb Haemost. 2006; 4:295-306. Current interpretive data was last revised on 2018 Blood specimen (specimen) 08/22/2020 3:38 AM CDT 08/22/2020 3:48 AM CDT us Amsharan Carmona MD LAB BLOOD ORDERABLES Final Result [facility] [place] [address] * (ABNORMAL) CBC with auto differential (08/22/2020 3:38 AM CDT) WBC 8.1 3.8 - 9.9 K/cumm [facility] Hgb 11.6(L) 13.0 - 17.5 g/dL [facility] Hct 34.7(L) 38.9 - 50.3 % [facility] Plt 348 150 - 400 K/cumm [facility] MPV 10.0 9.1 - 12.3 fL [facility] RBC 3.91(L) 4.30 - 5.80 M/cumm [facility] MCV 88.7 81.3 - 96.4 fL [facility] MCH 29.7 27.1 - 33.3 pg [facility] MCHC 33.4 32.3 - 35.7 g/dL [facility] RDW CV 12.5 11.1 - 14.9 % [facility] RDW SD 40.4 35.7 - 48.1 fL [facility] NRBC abs 0.00 0.00 - 0.01 K/cumm [facility] Blood specimen (specimen) 08/22/2020 3:38 AM CDT 08/22/2020 3:58 AM CDT us Amaad Rashawn Carmona MD LAB BLOOD ORDERABLES Final Result Performing Organization Address [facility] [place] [address] * Type and screen (08/22/2020 3:38 AM CDT) [facility] Denae, indirect Negative [facility] ABO Rh O Positive [facility] Blood specimen (specimen) 08/22/2020 3:38 AM CDT 08/22/2020 3:57 AM CDT Narrative [facility] - 08/22/2020 5:00 AM CDT Has the patient had Daratumumab or Isatuximab in the past 6 months?->Unknown us Loren Carmona MD LAB BLOOD BANK TEST ORDERAB LES Final Result Performing Organization Address [facility] de Phone Number [facility] [place] [address] * Magnesium (08/22/2020 3:38 AM CDT) [facility] Magnesium 2.1 1.4 - 2.5 mg/dL [facility] Blood specimen (specimen) 08/22/2020 3:38 AM CDT 08/22/2020 3:59 AM CDT Amsharan Carmona MD LAB BLOOD ORDERABLES Final Result Performing Organization Address [facility] [place] [address] * (ABNORMAL) Comprehensive metabolic panel (08/22/2020 3:38 AM CDT) [facility] Sodium 143 135 - 145 mmol/L [facility] Potassium, pl 3.9 3.3 - 4.9 mmol/L [facility] Chloride 107 97 - 110 mmol/L [facility] CO2 28 22 - 32 mmol/L [facility] Anion gap 8 2 - 15 mmol/L [facility] BUN 14 8 - 25 mg/dL [facility] Creatinine 0.88 0.80 - 1.30 mg/dL [facility] Glucose 89 70 - 199 mg/dL [facility] Comment: Interpretive Data Fasting glucose >/= [...] interpretive data was last revised 2017. Calcium 8.8 8.5 - 10.3 mg/dL [facility] Bilirubin, total <0.2 0.1 - 1.2 mg/dL [facility] Protein, pl 6.0(L) 6.5 - 8.5 g/dL [facility] Albumin 2.9(L) 3.5 - 5.0 g/dL [facility] Alk phos 66 40 - 130 Units/L [facility] ALT 36 7 - 55 Units/L [facility] AST 21 10 - 50 Units/L [facility] Blood specimen (specimen) 08/22/2020 3:38 AM CDT 08/22/2020 3:59 AM CDT Amaad Rashawn Carmona MD LAB BLOOD ORDERABLES Final Result [facility] Department [place] [address] * POCT glucose (08/21/2020 10:20 PM CDT) [facility] Signature Glucose, POC 80 70 - 199 mg/dL [facility] Blood specimen (specimen) 08/21/2020 10:20 PM CDT 08/21/2020 10:20 PM CDT us Loren Carmona MD LAB POCT ORDERABLES - DEVIC E Final Result Performing Organization Address [facility] Co de Phone Number [facility] [place] [address] * POCT glucose (08/21/2020 5:50 PM CDT) Pathologist [facility] Glucose, POC 107 70 - 199 mg/dL [facility] Blood specimen (specimen) 08/21/2020 5:50 PM CDT 08/21/2020 5:50 PM CDT Loren Carmona MD LAB POCT ORDERABLES - DEVIC E Final Result Performing Organization Address [facility] de Phone Number [facility] [place] [address] * Magnesium (08/21/2020 4:02 PM CDT) [facility] Magnesium 2.0 1.4 - 2.5 mg/dL [facility] Blood specimen (specimen) 08/21/2020 4:02 PM CDT 08/21/2020 4:27 PM CDT Rosa Maria Crenshaw MD LAB BLOOD ORDERABLES Fi nal Result Performing Organization Address [facility] Co de Phone Number [facility] [place] [address] * Basic metabolic panel (08/21/2020 4:02 PM CDT) [facility] Sodium 142 135 - 145 mmol/L [facility] Potassium, pl 3.9 3.3 - 4.9 mmol/L [facility] Chloride 105 97 - 110 mmol/L [facility] CO2 25 22 - 32 mmol/L [facility] Anion gap 12 2 - 15 mmol/L [facility] BUN 11 8 - 25 mg/dL [facility] Creatinine 0.84 0.80 - 1.30 mg/dL [facility] Glucose 164 70 - 199 mg/dL [facility] Comment: Interpretive Data Fasting glucose >/= [...] interpretive data was last revised 2017. Calcium 9.2 8.5 - 10.3 mg/dL [facility] Blood specimen (specimen) 08/21/2020 4:02 PM CDT 08/21/2020 4:27 PM CDT Rosa Maria Crenshaw MD LAB BLOOD ORDERABLES Fi nal Result Performing Organization Address [facility] Co de Phone Number [facility] Department [place] [address] * (ABNORMAL) Hemoglobin and hematocrit (08/21/2020 4:02 PM CDT) [facility] Hgb 12.8(L) 13.0 - 17.5 g/dL [facility] Hct 37.9(L) 38.9 - 50.3 % [facility] Blood specimen (specimen) 08/21/2020 4:02 PM CDT 08/21/2020 4:27 PM CDT us Loren Carmona MD LAB BLOOD ORDERABLES Final Result Performing Organization Address [facility]/ZIP Co de Phone Number [facility] Department [place] [address] * POCT glucose (08/21/2020 3:58 PM CDT) Pathologist [facility] Glucose, POC 144 70 - 199 mg/dL [facility] Blood specimen (specimen) 08/21/2020 3:58 PM CDT 08/21/2020 3:58 PM CDT Loren Carmona MD LAB POCT ORDERABLES - DEVIC E Final Result [facility] [place] [address] * (ABNORMAL) Differential, auto (08/21/2020 12:35 PM CDT) Neutrophil abs 8.1(H) 1.7 - 6.5 K/cumm [facility] Imm gran abs 0.0 0.0 - 0.1 K/cumm [facility] Lymphocyte abs 1.6 0.8 - 3.3 K/cumm [facility] Monocyte abs 0.4 0.2 - 0.8 K/cumm [facility] Eosinophil abs 0.0 0.0 - 0.5 K/cumm [facility] Basophil abs 0.0 0.0 - 0.1 K/cumm [facility] Neutrophil pct 79.8 % [facility] Comment: Interpretive Data Percent cell count reference ranges are not reported, since discordance with absolute values may lead to misinterpretation of CBC data. Current Interpretive Data was last revised on 2017. Imm gran pct 0.3 % [facility] Comment: Interpretive Data Percent cell count reference ranges are not reported, since discordance with absolute values may lead to misinterpretation of CBC data. Current Interpretive Data was last revised on 2017. Lymphocyte pct 15.3 % [facility] Comment: Interpretive Data Percent cell count reference ranges are not reported, since discordance with absolute values may lead to misinterpretation of CBC data. Current Interpretive Data was last revised on 2017. Monocyte pct 4.2 % [facility] Comment: Interpretive Data Percent cell count reference ranges are not reported, since discordance with absolute values may lead to misinterpretation of CBC data. Current Interpretive Data was last revised on 2017. Eosinophil pct 0.2 % [facility] Comment: Interpretive Data Percent cell count reference ranges are not reported, since discordance with absolute values may lead to misinterpretation of CBC data. Current Interpretive Data was last revised on 2017. Basophil pct 0.2 % [facility] Comment: Interpretive Data Percent cell count reference ranges are not reported, since discordance with absolute values may lead to misinterpretation of CBC data. Current Interpretive Data was last revised on 2017. Blood specimen (specimen) 08/21/2020 12:35 PM CDT 08/21/2020 12:51 PM CDT us Amaad Rashawn Carmona MD LAB BLOOD ORDERABLES Final Result [facility] [place] [address] * (ABNORMAL) CBC with auto differential (08/21/2020 12:35 PM CDT) WBC 10.1(H) 3.8 - 9.9 K/cumm [facility] Hgb 13.2 13.0 - 17.5 g/dL [facility] Hct 38.5(L) 38.9 - 50.3 % [facility] Plt 386 150 - 400 K/cumm [facility] MPV 9.9 9.1 - 12.3 fL [facility] RBC 4.37 4.30 - 5.80 M/cumm [facility] MCV 88.1 81.3 - 96.4 fL [facility] MCH 30.2 27.1 - 33.3 pg [facility] MCHC 34.3 32.3 - 35.7 g/dL [facility] RDW CV 12.4 11.1 - 14.9 % [facility] RDW SD 40.1 35.7 - 48.1 fL [facility] NRBC abs 0.00 0.00 - 0.01 K/cumm [facility] Blood specimen (specimen) 08/21/2020 12:35 PM CDT 08/21/2020 12:51 PM CDT us Loren Carmona MD LAB BLOOD ORDERABLES Final Result Performing Organization Address [facility] Co de Phone Number [facility] [place] [address] * POCT glucose (08/21/2020 12:29 PM CDT) Glucose, POC 88 70 - 199 mg/dL [facility] Blood specimen (specimen) 08/21/2020 12:29 PM CDT 08/21/2020 12:29 PM CDT Loren Carmona MD LAB POCT ORDERABLES - DEVIC E Final Result Performing Organization Address [facility] de Phone Number [facility] [place] [address] * POCT glucose (08/21/2020 7:37 AM CDT) Glucose, POC 85 70 - 199 mg/dL [facility] Blood specimen (specimen) 08/21/2020 7:37 AM CDT 08/21/2020 7:37 AM CDT Loren Carmona MD LAB POCT ORDERABLES - DEVIC E Final Result Performing Organization Address [facility] de Phone Number [facility] [place] [address] * (ABNORMAL) Differential, auto (08/21/2020 3:38 AM CDT) Neutrophil abs 9.8(H) 1.7 - 6.5 K/cumm [facility] Imm gran abs 0.1 0.0 - 0.1 K/cumm [facility] Lymphocyte abs 2.9 0.8 - 3.3 K/cumm [facility] Monocyte abs 0.6 0.2 - 0.8 K/cumm [facility] Eosinophil abs 0.0 0.0 - 0.5 K/cumm [facility] Basophil abs 0.0 0.0 - 0.1 K/cumm [facility] Neutrophil pct 72.7 % [facility] Comment: Interpretive Data Percent cell count reference ranges are not reported, since discordance with absolute values may lead to misinterpretation of CBC data. Current Interpretive Data was last revised on 2017. Imm gran pct 0.7 % [facility] Comment: Interpretive Data Percent cell count reference ranges are not reported, since discordance with absolute values may lead to misinterpretation of CBC data. Current Interpretive Data was last revised on 2017. Lymphocyte pct 21.7 % [facility] Comment: Interpretive Data Percent cell count reference ranges are not reported, since discordance with absolute values may lead to misinterpretation of CBC data. Current Interpretive Data was last revised on 2017. Monocyte pct 4.7 % [facility] Comment: Interpretive Data Percent cell count reference ranges are not reported, since discordance with absolute values may lead to misinterpretation of CBC data. Current Interpretive Data was last revised on 2017. Eosinophil pct 0.1 % [facility] Comment: Interpretive Data Percent cell count reference ranges are not reported, since discordance with absolute values may lead to misinterpretation of CBC data. Current Interpretive Data was last revised on 2017. Basophil pct 0.1 % [facility] Comment: Interpretive Data Percent cell count reference ranges are not reported, since discordance with absolute values may lead to misinterpretation of CBC data. Current Interpretive Data was last revised on 2017. Blood specimen (specimen) 08/21/2020 3:38 AM CDT 08/21/2020 3:49 AM CDT us Amaad Rashawn Carmona MD LAB BLOOD ORDERABLES Final Result [facility] [place] [address] * (ABNORMAL) CBC with auto differential (08/21/2020 3:38 AM CDT) WBC 13.5(H) 3.8 - 9.9 K/cumm [facility] Hgb 12.4(L) 13.0 - 17.5 g/dL [facility] Hct 36.3(L) 38.9 - 50.3 % [facility] Plt 368 150 - 400 K/cumm [facility] MPV 9.8 9.1 - 12.3 fL [facility] RBC 4.10(L) 4.30 - 5.80 M/cumm [facility] MCV 88.5 81.3 - 96.4 fL [facility] MCH 30.2 27.1 - 33.3 pg [facility] MCHC 34.2 32.3 - 35.7 g/dL [facility] RDW CV 12.3 11.1 - 14.9 % [facility] RDW SD 39.6 35.7 - 48.1 fL [facility] NRBC abs 0.00 0.00 - 0.01 K/cumm [facility] Blood specimen (specimen) 08/21/2020 3:38 AM CDT 08/21/2020 3:49 AM CDT Loren Carmona MD LAB BLOOD ORDERABLES Final Result Performing Organization Address City/[facility]/ZIP Co de Phone Number [facility] [place] [place] [address] * POCT glucose (08/20/2020 7:53 PM CDT) [facility] Glucose, POC 122 70 - 199 mg/dL [facility] Blood specimen (specimen) 08/20/2020 7:53 PM CDT 08/20/2020 7:53 PM CDT Loren Carmona MD LAB POCT ORDERABLES - DEVIC E Final Result Performing Organization Address City/[facility] Co de Phone Number [facility] Department [place] [address] * (ABNORMAL) Differential, auto (08/20/2020 4:54 PM CDT) Neutrophil abs 12.1(H) 1.7 - 6.5 K/cumm [facility] Imm gran abs 0.1 0.0 - 0.1 K/cumm [facility] Lymphocyte abs 0.8 0.8 - 3.3 K/cumm [facility] Monocyte abs 0.2 0.2 - 0.8 K/cumm [facility] Eosinophil abs 0.0 0.0 - 0.5 K/cumm [facility] Basophil abs 0.0 0.0 - 0.1 K/cumm [facility] Neutrophil pct 91.5 % [facility] Comment: Interpretive Data Percent cell count reference ranges are not reported, since discordance with absolute values may lead to misinterpretation of CBC data. Current Interpretive Data was last revised on 2017. Imm gran pct 0.8 % [facility] Comment: Interpretive Data Percent cell count reference ranges are not reported, since discordance with absolute values may lead to misinterpretation of CBC data. Current Interpretive Data was last revised on 2017. Lymphocyte pct 6.2 % [facility] Comment: Interpretive Data Percent cell count reference ranges are not reported, since discordance with absolute values may lead to misinterpretation of CBC data. Current Interpretive Data was last revised on 2017. Monocyte pct 1.4 % [facility] Comment: Interpretive Data Percent cell count reference ranges are not reported, since discordance with absolute values may lead to misinterpretation of CBC data. Current Interpretive Data was last revised on 2017. Eosinophil pct 0.0 % [facility] Comment: Interpretive Data Percent cell count reference ranges are not reported, since discordance with absolute values may lead to misinterpretation of CBC data. Current Interpretive Data was last revised on 2017. Basophil pct 0.1 % [facility] Comment: Interpretive Data Percent cell count reference ranges are not reported, since discordance with absolute values may lead to misinterpretation of CBC data. Current Interpretive Data was last revised on 2017. Blood specimen (specimen) 08/20/2020 4:54 PM CDT 08/20/2020 5:05 PM CDT us Amaad Rashawn Carmona MD LAB BLOOD ORDERABLES Final Result Performing Organization Address [facility]/ZIP Co de Phone Number [facility] Department [place] [address] * (ABNORMAL) CBC with auto differential (08/20/2020 4:54 PM CDT) WBC 13.2(H) 3.8 - 9.9 K/cumm [facility] Hgb 12.3(L) 13.0 - 17.5 g/dL [facility] Hct 35.7(L) 38.9 - 50.3 % [facility] Plt 356 150 - 400 K/cumm [facility] MPV 9.8 9.1 - 12.3 fL [facility] RBC 4.08(L) 4.30 - 5.80 M/cumm [facility] MCV 87.5 81.3 - 96.4 fL [facility] MCH 30.1 27.1 - 33.3 pg [facility] MCHC 34.5 32.3 - 35.7 g/dL [facility] RDW CV 12.0 11.1 - 14.9 % [facility] RDW SD 38.5 35.7 - 48.1 fL [facility] NRBC abs 0.00 0.00 - 0.01 K/cumm [facility] Blood specimen (specimen) 08/20/2020 4:54 PM CDT 08/20/2020 5:05 PM CDT us Amsharan Carmona MD LAB BLOOD ORDERABLES Final Result [facility] Department [place] [address] * Magnesium (08/20/2020 4:54 PM CDT) Pathologist [facility] Magnesium 1.9 1.4 - 2.5 mg/dL [facility] Blood specimen (specimen) 08/20/2020 4:54 PM CDT 08/20/2020 5:05 PM CDT Amaad Rashawn Carmona MD LAB BLOOD ORDERABLES Final Result [facility] [place] [address] * (ABNORMAL) Comprehensive metabolic panel (08/20/2020 4:54 PM CDT) Sodium 141 135 - 145 mmol/L [facility] Potassium, pl 4.0 3.3 - 4.9 mmol/L [facility] Chloride 106 97 - 110 mmol/L [facility] CO2 25 22 - 32 mmol/L [facility] Anion gap 10 2 - 15 mmol/L [facility] BUN 11 8 - 25 mg/dL [facility] Creatinine 0.79(L) 0.80 - 1.30 mg/dL [facility] Glucose 128 70 - 199 mg/dL [facility] Comment: Interpretive Data Fasting glucose >/= [...] interpretive data was last revised 2017. Calcium 9.4 8.5 - 10.3 mg/dL [facility] Bilirubin, total <0.2 0.1 - 1.2 mg/dL [facility] Protein, pl 6.5 6.5 - 8.5 g/dL [facility] Albumin 3.1(L) 3.5 - 5.0 g/dL [facility] Alk phos 77 40 - 130 Units/L [facility] ALT 35 7 - 55 Units/L [facility] AST 16 10 - 50 Units/L [facility] Blood specimen (specimen) 08/20/2020 4:54 PM CDT 08/20/2020 5:05 PM CDT Loren Carmona MD LAB BLOOD ORDERABLES Final Result Performing Organization Address [facility] de Phone Number [facility] [place] [address] * POCT glucose (08/20/2020 4:38 PM CDT) Glucose, POC 156 70 - 199 mg/dL [facility] Blood specimen (specimen) 08/20/2020 4:38 PM CDT 08/20/2020 4:38 PM CDT Loren Carmona MD LAB POCT ORDERABLES - DEVIC E Final Result Performing Organization Address [facility] de Phone Number [facility] [place] [address] * POCT glucose (08/20/2020 1:08 PM CDT) Glucose, POC 110 70 - 199 mg/dL [facility] Blood specimen (specimen) 08/20/2020 1:08 PM CDT 08/20/2020 1:08 PM CDT Loren Carmona MD LAB POCT ORDERABLES - DEVIC E Final Result Performing Organization Address [facility] [place] [address] * (ABNORMAL) Differential, auto (08/20/2020 8:18 AM CDT) Neutrophil abs 8.4(H) 1.7 - 6.5 K/cumm [facility] Imm gran abs 0.0 0.0 - 0.1 K/cumm [facility] Lymphocyte abs 0.8 0.8 - 3.3 K/cumm [facility] Monocyte abs 0.2 0.2 - 0.8 K/cumm [facility] Eosinophil abs 0.0 0.0 - 0.5 K/cumm [facility] Basophil abs 0.0 0.0 - 0.1 K/cumm [facility] Neutrophil pct 88.8 % [facility] Comment: Interpretive Data Percent cell count reference ranges are not reported, since discordance with absolute values may lead to misinterpretation of CBC data. Current Interpretive Data was last revised on 2017. Imm gran pct 0.4 % [facility] Comment: Interpretive Data Percent cell count reference ranges are not reported, since discordance with absolute values may lead to misinterpretation of CBC data. Current Interpretive Data was last revised on 2017. Lymphocyte pct 8.4 % [facility] Comment: Interpretive Data Percent cell count reference ranges are not reported, since discordance with absolute values may lead to misinterpretation of CBC data. Current Interpretive Data was last revised on 2017. Monocyte pct 2.3 % [facility] Comment: Interpretive Data Percent cell count reference ranges are not reported, since discordance with absolute values may lead to misinterpretation of CBC data. Current Interpretive Data was last revised on 2017. Eosinophil pct 0.0 % [facility] Comment: Interpretive Data Percent cell count reference ranges are not reported, since discordance with absolute values may lead to misinterpretation of CBC data. Current Interpretive Data was last revised on 2017. Basophil pct 0.1 % [facility] Comment: Interpretive Data Percent cell count reference ranges are not reported, since discordance with absolute values may lead to misinterpretation of CBC data. Current Interpretive Data was last revised on 2017. Blood specimen (specimen) 08/20/2020 8:18 AM CDT 08/20/2020 8:47 AM CDT us Amaad Rashawn Carmona MD LAB BLOOD ORDERABLES Final Result [facility] [place] [address] * (ABNORMAL) CBC with auto differential (08/20/2020 8:18 AM CDT) WBC 9.4 3.8 - 9.9 K/cumm [facility] Hgb 12.7(L) 13.0 - 17.5 g/dL [facility] Hct 37.1(L) 38.9 - 50.3 % [facility] Plt 354 150 - 400 K/cumm [facility] MPV 10.0 9.1 - 12.3 fL [facility] RBC 4.24(L) 4.30 - 5.80 M/cumm [facility] MCV 87.5 81.3 - 96.4 fL [facility] MCH 30.0 27.1 - 33.3 pg [facility] MCHC 34.2 32.3 - 35.7 g/dL [facility] RDW CV 12.1 11.1 - 14.9 % [facility] RDW SD 38.6 35.7 - 48.1 fL [facility] NRBC abs 0.00 0.00 - 0.01 K/cumm [facility] Blood specimen (specimen) 08/20/2020 8:18 AM CDT 08/20/2020 8:47 AM CDT us Amaad Rashawn Carmona MD LAB BLOOD ORDERABLES Final Result [facility] Department [place] [address] * (ABNORMAL) VRE culture, surveillance Stool (08/20/2020 2:46 AM CDT) Report Final Report: Enterococcus species, 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 (.) [facility] Organism ENTEROCOCCUS SPECIES, VANCOMYCIN RESISTANT [facility] Stool 08/20/2020 2:46 AM CDT 08/20/2020 11:31 PM CDT Narrative [facility] - 08/21/2020 10:23 PM CDT Testing performed by [facility] ([phone]). us Loren Carmona MD LAB MICROBIOLOGY - GENERAL ORDERABLES Final Result Performing Organization Address [facility] Co de Phone Number [facility] Department [place] [address] * (ABNORMAL) Haptoglobin (08/20/2020 2:46 AM CDT) Pathologist [facility] [place] Haptoglobin 380.0(H) 30.0 - 200.0 mg/dL [facility] Blood specimen (specimen) 08/20/2020 2:46 AM CDT 08/20/2020 2:59 AM CDT us Loren Carmona MD LAB BLOOD ORDERABLES Final Result Performing Organization Address [facility] Co de Phone Number [facility] Department [place] [address] * Lactate dehydrogenase (LD) (08/20/2020 2:46 AM CDT) Pathologist [facility] [place] Lactate dehydrogenase (LDH) 184 100 - 250 Units/L [facility] Blood specimen (specimen) 08/20/2020 2:46 AM CDT 08/20/2020 2:59 AM CDT Loren Carmona MD LAB BLOOD ORDERABLES Final Result Performing Organization Address City/[facility] Co de Phone Number [place], [place] [id number] * (ABNORMAL) Differential, auto (08/20/2020 2:46 AM CDT) Pathologist [facility] Neutrophil abs 9.1(H) 1.7 - 6.5 K/cumm [facility] Imm gran abs 0.0 0.0 - 0.1 K/cumm [facility] Lymphocyte abs 0.6(L) 0.8 - 3.3 K/cumm [facility] Monocyte abs 0.1(L) 0.2 - 0.8 K/cumm [facility] Eosinophil abs 0.0 0.0 - 0.5 K/cumm [facility] Basophil abs 0.0 0.0 - 0.1 K/cumm [facility] Neutrophil pct 93.0 % [facility] Comment: Interpretive Data Percent cell count reference ranges are not reported, since discordance with absolute values may lead to misinterpretation of CBC data. Current Interpretive Data was last revised on 2017. Imm gran pct 0.3 % [facility] Comment: Interpretive Data Percent cell count reference ranges are not reported, since discordance with absolute values may lead to misinterpretation of CBC data. Current Interpretive Data was last revised on 2017. Lymphocyte pct 5.8 % [facility] Comment: Interpretive Data Percent cell count reference ranges are not reported, since discordance with absolute values may lead to misinterpretation of CBC data. Current Interpretive Data was last revised on 2017. Monocyte pct 0.8 % [facility] Comment: Interpretive Data Percent cell count reference ranges are not reported, since discordance with absolute values may lead to misinterpretation of CBC data. Current Interpretive Data was last revised on 2017. Eosinophil pct 0.0 % [facility] Comment: Interpretive Data Percent cell count reference ranges are not reported, since discordance with absolute values may lead to misinterpretation of CBC data. Current Interpretive Data was last revised on 2017. Basophil pct 0.1 % [facility] Comment: Interpretive Data Percent cell count reference ranges are not reported, since discordance with absolute values may lead to misinterpretation of CBC data. Current Interpretive Data was last revised on 2017. Blood specimen (specimen) 08/20/2020 2:46 AM CDT 08/20/2020 3:00 AM CDT us Amaad Rashawn Carmona MD LAB BLOOD ORDERABLES Final Result [facility] Department [place] [address] * (ABNORMAL) CBC with auto differential (08/20/2020 2:46 AM CDT) WBC 9.8 3.8 - 9.9 K/cumm [facility] Hgb 12.7(L) 13.0 - 17.5 g/dL [facility] Hct 37.2(L) 38.9 - 50.3 % [facility] Plt 340 150 - 400 K/cumm [facility] MPV 9.9 9.1 - 12.3 fL [facility] RBC 4.24(L) 4.30 - 5.80 M/cumm [facility] MCV 87.7 81.3 - 96.4 fL [facility] MCH 30.0 27.1 - 33.3 pg [facility] MCHC 34.1 32.3 - 35.7 g/dL [facility] RDW CV 12.2 11.1 - 14.9 % [facility] RDW SD 39.2 35.7 - 48.1 fL [facility] NRBC abs 0.00 0.00 - 0.01 K/cumm [facility] Blood specimen (specimen) 08/20/2020 2:46 AM CDT 08/20/2020 3:00 AM CDT us Loren Carmona MD LAB BLOOD ORDERABLES Final Result [facility] [place] [address] * Magnesium (08/20/2020 2:46 AM CDT) Pathologist [facility] Magnesium 2.1 1.4 - 2.5 mg/dL [facility] Blood specimen (specimen) 08/20/2020 2:46 AM CDT 08/20/2020 2:59 AM CDT us Amaad Rashawn Carmona MD LAB BLOOD ORDERABLES Final Result [facility] [place] [address] * (ABNORMAL) Comprehensive metabolic panel (08/20/2020 2:46 AM CDT) Sodium 140 135 - 145 mmol/L [facility] Potassium, pl 4.0 3.3 - 4.9 mmol/L [facility] Chloride 104 97 - 110 mmol/L [facility] CO2 28 22 - 32 mmol/L [facility] Anion gap 8 2 - 15 mmol/L [facility] BUN 12 8 - 25 mg/dL [facility] Creatinine 0.93 0.80 - 1.30 mg/dL [facility] Glucose 174 70 - 199 mg/dL [facility] Comment: Interpretive Data Fasting glucose >/= [...] interpretive data was last revised 2017. Calcium 8.9 8.5 - 10.3 mg/dL [facility] Bilirubin, total 0.2 0.1 - 1.2 mg/dL [facility] Protein, pl 6.7 6.5 - 8.5 g/dL [facility] Albumin 3.2(L) 3.5 - 5.0 g/dL [facility] Alk phos 79 40 - 130 Units/L [facility] ALT 41 7 - 55 Units/L [facility] AST 20 10 - 50 Units/L [facility] Blood specimen (specimen) 08/20/2020 2:46 AM CDT 08/20/2020 2:59 AM CDT us Amaad Rashawn Carmona MD LAB BLOOD ORDERABLES Final Result [facility] [place] [address] * (ABNORMAL) Calprotectin, fecal (08/20/2020 2:46 AM CDT) [facility] Calprotectin, fecal 98.9(H) <=50.0 (Normal) mcg/g [facility] Comment: Interpretation: Borderline (50.1-120.0 mcg/g) Test Performed by: [facility] [address] [place] [address] Pathology Laboratory Technologist: Beni Boss M.D. Ph.D.; CLIA# [id number] Stool 08/20/2020 2:46 AM CDT 08/20/2020 3:42 AM CDT us Loren Carmona MD LAB BODY FLUIDS AND STOOLS ORDERABLES Final Result Performing Organization Address [facility] de Phone Number [facility] [place] [address] * C. difficile testing Stool (08/20/2020 2:46 AM CDT) [facility] C. diff result Negative, free toxin Negative , free toxin [facility] C. diff interp Negative for toxigenic Clostridioides (Clostridium) difficile. Analysis was performed using an enzyme immunoassay that detects C. difficile toxin(s) in feces. [facility] Stool 08/20/2020 2:46 AM CDT 08/20/2020 3:09 AM CDT us Loren Carmona MD LAB MICROBIOLOGY - GENERAL ORDERABLES Final Result Performing Organization Address [facility] de Phone Number [facility] [place] [address] * Stool culture Stool Rectum (08/20/2020 2:46 AM CDT) [facility] Direct Specimen Exam Shiga Toxin Testing: Antigen detection assay for Shiga-toxin NEGATIVE for Shiga Toxin 1 and Shiga Toxin 2. [facility] Report Final Report: No growth of enteric bacterial pathogens [facility] Stool (Rectum) 08/20/2020 2: 46 AM CDT 08/20/2020 3:09 AM CDT Narrative [facility] - 08/24/2020 8:46 AM CDT Testing performed by [facility] ([phone]). Routine stool cultures include procedures to detect Salmonella, Shigella, Edwardsiella, Aeromonas, Pleisiomonas, Campylobacter, Yersinia, E. coli O157, and Shiga-like toxins. ?? Vibrio is cultured only upon special request. ??If Vibrio is suspected, please call the laboratory at [phone]. Interpretive data was last updated July 30, 2016. Amaad Rashawn Carmona MD LAB MICROBIOLOGY - GENERAL ORDERABLES Final Result Performing Organization Address City/[facility] Co de Phone Number [facility] [place] [place] [address] * Protein / creatinine ratio, urine, random (08/19/2020 5:24 PM CDT) [facility] Protein, ur, quant 7.8 mg/dL [facility] Comment: Interpretive Data No reference range established. Current interpretive data was last revised 2018. Creatinine Ur 78.6 mg/dL [facility] Comment: Interpretive Data No reference range established. Current interpretive data was last revised 2018. Protein/creatinin e ratio 99.2 0.0 - 180.0 mg/g CR [facility] Urine 08/19/2020 5:24 PM CDT 08/19/2020 5:35 PM CDT Amaad Rashawn Carmona MD LAB URINE ORDERABLES Final Result Performing Organization Address [facility] Co de Phone Number [facility] Department [place] [address] * Blood culture Blood Forearm, right (08/19/2020 12:39 PM CDT) Report Final Report: No growth [facility] Blood specimen (specimen) (Forearm, right) 08/19/2020 12:39 PM CDT 08/19/2020 12:53 PM CDT Narrative [facility] - 08/23/2020 4:01 PM CDT From a different site than #1. 1. ?Blood cultures are incubated for 4 days on a continuously monitored blood culture system. The first report of a negative culture is issued within 24 hours of receipt of the specimen in the laboratory. 2. ?Positive culture results are reported as soon as they are detected. 3. ?The most important factor for detection of microbes in the setting of bloodstream infection is the volume of blood submitted for culture. Failure to collect an optimal blood volume can result in false negative blood cultures. For pediatric patients, the recommended blood volume to collect is 1 mL of blood per year of patient age (up to 20 mL) per blood culture set. For adult patients, 20 mL of blood, divided equally between aerobic and anaerobic blood culture bottles, is recommended for each blood culture set. 4. ?For blood cultures with Gram-positive cocci, a rapid molecular test for organism identification may be performed using the i2weigene Gram-Positive Blood Culture Assay. This assay detects microbial DNA in positive blood culture broth via hybridization of target DNA to capture oligonucleotides on a microarray. This assay has been cleared by the [place] Food and Drug Administration and its performance characteristics have been verified by the [facility]. 5. ?For questions about this culture, contact the Microbiology Laboratory at [phone]. Interpretive data was last revised on 2019. us Jose Maloney MD LAB MICROBIOLOGY - GENERAL OR DERABLES Final Result [facility] [place] [address] * Blood culture Blood Forearm, left (08/19/2020 12:39 PM CDT) Report Final Report: No growth [facility] Blood specimen (specimen) (Forearm, left) 08/19/2020 12:39 PM CDT 08/19/2020 12:52 PM CDT Narrative [facility] - 08/23/2020 4:01 PM CDT 1. ?Blood cultures are incubated for 4 days on a continuously monitored blood culture system. The first report of a negative culture is issued within 24 hours of receipt of the specimen in the laboratory. 2. ?Positive culture results are reported as soon as they are detected. 3. ?The most important factor for detection of microbes in the setting of bloodstream infection is the volume of blood submitted for culture. Failure to collect an optimal blood volume can result in false negative blood cultures. For pediatric patients, the recommended blood volume to collect is 1 mL of blood per year of patient age (up to 20 mL) per blood culture set. For adult patients, 20 mL of blood, divided equally between aerobic and anaerobic blood culture bottles, is recommended for each blood culture set. 4. ?For blood cultures with Gram-positive cocci, a rapid molecular test for organism identification may be performed using the i2weigene Gram-Positive Blood Culture Assay. This assay detects microbial DNA in positive blood culture broth via hybridization of target DNA to capture oligonucleotides on a microarray. This assay has been cleared by the [place] Food and Drug Administration and its performance characteristics have been verified by the [facility]. 5. ?For questions about this culture, contact the Microbiology Laboratory at [phone]. Interpretive data was last revised on 2019. us Jose Maloney MD LAB MICROBIOLOGY - GENERAL OR DERABLES Final Result [facility] Department [place] [address] * XR Chest Pa Lateral 2 Views (08/19/2020 12:11 PM CDT) Anatomical Region Laterality Modality Body, Chest N/A Computed Radiogr aphy 08/19/2020 3:02 PM CDT Impressions 08/19/2020 4:36 PM CDT The current study is compared with the tile mechanic radiographs of the CTs dated 12/06/2017 and 08/11/2020. Minimal linear opacities within the bilateral lung bases are compatible with scarring. The lungs are clear without focal pneumonic consolidation, pleural effusion, pulmonary edema, or pneumothorax. No pulmonary nodules are definitely visualized. The heart size and mediastinal contour are within normal limits and unchanged. Multiple thoracic spine vertebral compression deformities are unchanged dating back to 2017. Dictated by: Omero Kenney M.D. The radiology attending physician has personally reviewed this study, and had reviewed and/or edited this written report and agrees with it. Electronically signed by: Chencho Shaffer M.D. Narrative 08/19/2020 4:36 PM CDT EXAMINATION: 2 view chest radiograph Procedure Note Chencho Shaffer MD - 08/19/2020 EXAMINATION: 2 view chest radiograph IMPRESSION: The current study is compared with the tile mechanic radiographs of the CTs dated 12/06/2017 and 08/11/2020. Minimal linear opacities within the bilateral lung bases are compatible with scarring. The lungs are clear without focal pneumonic consolidation, pleural effusion, pulmonary edema, or pneumothorax. No pulmonary nodules are definitely visualized. The heart size and mediastinal contour are within normal limits and unchanged. Multiple thoracic spine vertebral compression deformities are unchanged dating back to 2017. Dictated by: Omero Kenney M.D. The radiology attending physician has personally reviewed this study, and had reviewed and/or edited this written report and agrees with it. Electronically signed by: Chencho Shaffer M.D. us Giovani Rodriguez MD IMG XR PROCEDURES Final Resul t * US Kidney Complete (08/19/2020 11:51 AM CDT) Anatomical Region Laterality Modality Kidney N/A Ultrasound 08/19/2020 11:5 9 AM CDT Impressions 08/19/2020 2:42 PM CDT Subcentimeter exophytic lesion in the interpolar region of the left kidney correlates with the CT finding and remains indeterminant although favored to be benign given lack of any convincing suspicious feature. Recommend follow up in 6-12 months. Dictated by: Tierney Meadows M.D. The radiology attending physician has personally reviewed this study, and had reviewed and/or edited this written report and agrees with it. Electronically signed by: Sonny Cadet M.D. Narrative 08/19/2020 2:42 PM CDT EXAMINATION: COMPLETE RENAL SONOGRAM HISTORY: ??70-year-old man with incidentally identified 6 mm left renal lesion on contrast enhanced CT. COMPARISON: ??CT 08/19/2020 FINDINGS: ?? Kidneys: The echogenicity of both kidneys is normal. The kidneys are normal in size. ??The right kidney measures 12.7 cm in length, and the left, 13.7 cm in length. There is no hydronephrosis in either kidney. There are no renal calculi visualized. ??There is a 8 x 5 x 7 mm hypodense exophytic lesion in the interpolar region of the left kidney without demonstratable internal vascularity. ??The subcentimeter size of this lesion is below the resolution of ultrasound to definitively characterize as cystic or solid. Additionally, there are simple cysts in the upper poles of both kidneys. Bladder: The urinary bladder is normal Procedure Note Sonny Cadet MD - 08/19/2020 EXAMINATION: COMPLETE RENAL SONOGRAM HISTORY: 70-year-old man with incidentally identified 6 mm left renal lesion on contrast enhanced CT. COMPARISON: CT 08/19/2020 FINDINGS: Kidneys: The echogenicity of both kidneys is normal. The kidneys are normal in size. The right kidney measures 12.7 cm in length, and the left, 13.7 cm in length. There is no hydronephrosis in either kidney. There are no renal calculi visualized. There is a 8 x 5 x 7 mm hypodense exophytic lesion in the interpolar region of the left kidney without demonstratable internal vascularity. The subcentimeter size of this lesion is below the resolution of ultrasound to definitively characterize as cystic or solid. Additionally, there are simple cysts in the upper poles of both kidneys. Bladder: The urinary bladder is normal IMPRESSION: Subcentimeter exophytic lesion in the interpolar region of the left kidney correlates with the CT finding and remains indeterminant although favored to be benign given lack of any convincing suspicious feature. Recommend follow up in 6-12 months. Dictated by: Tierney Meadows M.D. The radiology attending physician has personally reviewed this study, and had reviewed and/or edited this written report and agrees with it. Electronically signed by: Sonny Cadet M.D. us Amaad Rashawn Carmona MD IMG US PROCEDURES Final Res ult * Surgical pathology (08/19/2020 10:53 AM CDT) Tissue (Skin, biopsy) 08/19/2020 10:53 AM CDT 08/19/2020 4:29 PM CDT Narrative PATHOLOGY [facility] - 08/23/2020 3:38 PM CDT EPIC results best viewed via link to PDF [facility] [place] [address] SURGICAL PATHOLOGY REPORT FINAL Patient Name: ?? CHADD RECIO Gender: ??M : ??1950 (Age: 70) Address: ??[address] [place] [address] ??[id number] Hospital #: ??[id number] Taken:08/19/2020 Received:08/19/2020 Reported: 08/23/2020 Patient Type: [facility] Inpatient ?? Service: Medical Location: [facility] ADMT Physician(s): ??Meli Cornejo M.D. Tawanna Avalos M.D. Giovani Rodriguez M.D. Annabelle Donald MD Diagnosis: A. 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 ??Skin, right thigh, biopsy for direct immunofluorescence: ? Negative direct immunofluorescence [facility]/08/23/2020 10:09 By this signature, I attest that the above diagnosis is based upon my personal examination of the slides(and/or other material indicated in the diagnosis). Mckenna Vences M.D. Report Electronically Reviewed and Signed Out By ??Mckenna Vences M.D. 08/23/2020 15:38:03 Microscopic Description and Comment: A. ??There is a superficial and mid-dermal perivascular and interstitial mixed inflammatory cell infiltrate that contains lymphocytes, histiocytes, eosinophils and many neutrophils. ??There are nuclear dust, fibrin within the vessel ferrari and numerous extravasated ??erythrocytes. (L95.8) B. ??The sections were reacted with antibodies to IgG, IgA, IgM, C3 and fibrinogen. Significant immunofluorescence staining is not seen. Microscopic slide review and interpretation for this case was performed at the [facility], ??Department of Pathology ??and Immunology, [place] [facility], [address] [place] [address], [address], [place] ??[address] ?? CLIA # [id number] Isiah Chow M.D. 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 ??Operative procedure: Skin punch biopsies Specimen(s) Received: A: Skin, right thigh, punch biopsy B: Skin, right thigh, biopsy for direct immunofluorescence Gross Description: Specimen A is received in formalin, labeled with the patient's name and A R thigh and consists of one summers-pink skin punch measuring 0.4 cm in diameter by 0.3 cm in length. ??The specimen is inked blue, bisected and submitted on edge between sponges in block A1. ??Jar 0. Specimen B is received in Ruddy's fixative, labeled with the patient's name and B right thigh and consists of a summers-red erythematous skin punch measuring 0.4 cm in diameter by 0.3 cm in length. ??Specimen is submitted for direct immunofluorescence. axxm/08/19/2020 18:21 PA(s): MAGDALENE [place] ([facility]) By this signature, I attest that the above diagnosis is based upon my personal examination of the slides(and/or other material). Krysten Whalen MD Addenda/Procedures The performance characteristics of some immunohistochemical stains, fluorescence in-situ hybridization tests and immunophenotyping by flow cytometry cited in this report (if any) were determined by the Surgical Pathology Department at [facility] as part of an ongoing customer quality engineer program and in compliance with federally mandated regulations drawn from the Clinical Laboratory Improvement Act of 1988 (CLIA '88). ??Some of these tests rely on the use of analyte specific reagents and are subject to specific labeling requirements by the US Food and Drug Administration. ??Such diagnostic tests may only be performed in a facility that is certified by the Department of Health and Human Services as a high complexity laboratory under CLIA '88. ??The FDA has determined that such clearance or approval is not necessary. ??This test is used for clinical purposes. ??It should not be regarded as investigational or for research. ??Nevertheless, federal rules concerning the medical use of analyte specific reagents require that the following disclaimer be attached to the report: This test was developed and its performance characteristics determined by the Surgical Pathology Department of [facility]. ??It has not been cleared or approved by the U. S. Food and Drug Administration. IMAGES AND SCANNED DOCUMENTS, IF INCLUDED, ONLY VIEWABLE IN PDF VERSION OF REPORT Giovani Rodriguez MD LAB PATHOLOGY ORDERABLES Elizabeth lynn Result PATHOLOGY [facility] 3rd Floor [place], [place] [phone] * N. gonorrhoeae/C. trachomatis Amplification Urine (08/19/2020 9:59 AM CDT) C. trachomatis Not Detected Not Detected MARIN GERMAN N. gonorrhoeae Not Detected Not Detected [facility] Comment: Interpretive Data Testing performed by the [facility]. This assay detects Chlamydia trachomatis and Neisseria gonorrhoeae by nucleic acid amplification testing (NAAT). This test is approved by the [place] Food and Drug Administration and the performance characteristics have been verified by the laboratory. The performance characteristics of this test have not been evaluated in individuals less than 14 years of age. Current Interpretive Data was last revised on 2018. Urine (None) 08/19/2020 9:59 AM CDT 08/19/2020 11:33 AM CDT Loren Carmona MD LAB MICROBIOLOGY - GENERAL ORDERABLES Final Result Performing Organization Address [facility] [place] [address] * BRAYAN Antibody Evaluation with Reflex (08/19/2020 6:15 AM CDT) BRAYAN ab Negative Negative [facility] Comment: Interpretive Data Positive Screens will be reflexed to specific testing for the following antigens: Vane-1 Ab, IRRIGATIONIST Ab, Scl-70 Ab, Johnston Ab, SS-A/Ro Ab, and SS-B/La Ab. Further testing for dsDNA, Centromere, or Ribosomal P antibodies is suggested in patient with a positive screen and negative specific antibodies. Current interpretive data was last revised on 16. Blood specimen (specimen) 08/19/2020 6:15 AM CDT 08/19/2020 6:29 AM CDT Loren Carmona MD LAB BLOOD ORDERABLES Final Result Performing Organization Address [facility] [place] [address] * (ABNORMAL) Anti-double stranded DNA antibodies (08/19/2020 6:15 AM CDT) dsDNA Ab 6.0(H) <=4.0 IUnits/mL [facility] Comment: Interpretive Data Negative: < or = 4 IUnits/mL Indeterminate: 5 - 9 IUnits/mL Positive: > or = 10 IUnits/mL Current interpretive data was last revised on 2016. Blood specimen (specimen) 08/19/2020 6:15 AM CDT 08/19/2020 6:29 AM CDT Loren Carmona MD LAB BLOOD ORDERABLES Final Result Performing Organization Address [facility] de Phone Number [facility] [place] [address] * (ABNORMAL) Hepatic function panel (08/19/2020 6:15 AM CDT) [facility] Bilirubin, total 0.3 0.1 - 1.2 mg/dL [facility] Bilirubin, direct <0.2 0.1 - 0.3 mg/dL [facility] Protein, pl 5.9(L) 6.5 - 8.5 g/dL [facility] Albumin 2.7(L) 3.5 - 5.0 g/dL [facility] Alk phos 78 40 - 130 Units/L [facility] ALT 47 7 - 55 Units/L [facility] AST 32 10 - 50 Units/L [facility] Blood specimen (specimen) 08/19/2020 6:15 AM CDT 08/19/2020 6:29 AM CDT us Giovani Rodriguez MD LAB BLOOD ORDERABLES Final Re sult [facility] [place] [address] * Hepatitis B core antibody, total (08/19/2020 6:15 AM CDT) [facility] Hep B core IgG/IgM Nonreactive Nonreactive [facility] Blood specimen (specimen) 08/19/2020 6:15 AM CDT 08/19/2020 6:29 AM CDT us Loren Carmona MD LAB MICROBIOLOGY - GENERAL ORDERABLES Edited Result [place] [address] * Hepatitis B surface antibody (immune status) (08/19/2020 6:15 AM CDT) [facility] HBsAb (immune status) Reactive [facility] Comment: Interpretive Data Nonreactive: This result is consistent with a lack of immunity to Hepatitis B Virus when used in the setting of routine screening. Equivocal: The immune status of the individual should be further assessed, if appropriate, after consideration of clinical status, risk factors, and additional diagnostic information. Reactive: This result is consistent with immunity to Hepatitis B Virus when used in the setting of routine screening. Current interpretive data was last revised on 19. HBsAb (immune status) index 257.8 mIUnits/m L [facility] Blood specimen (specimen) 08/19/2020 6:15 AM CDT 08/19/2020 6:29 AM CDT us Loren Carmona MD LAB MICROBIOLOGY - GENERAL ORDERABLES Final Result Performing Organization Address [facility] Co de Phone Number [facility] Department [place] [address] * Hepatitis B Surface Antigen (08/19/2020 6:15 AM CDT) HepBsAg Nonreactive Nonreactive [facility] Blood specimen (specimen) 08/19/2020 6:15 AM CDT 08/19/2020 6:29 AM CDT us Loren Carmona MD LAB MICROBIOLOGY - GENERAL ORDERABLES Edited Result - Final Performing Organization Address [facility] Co de Phone Number [facility] Department [place] [address] * C4 complement (08/19/2020 6:15 AM CDT) Complement C4 24.6 10.0 - 40.0 mg/dL [facility] Blood specimen (specimen) 08/19/2020 6:15 AM CDT 08/19/2020 6:29 AM CDT us Loren Carmona MD LAB BLOOD ORDERABLES Final Result Performing Organization Address [facility] Co de Phone Number [facility] [place] [address] * C3 complement (08/19/2020 6:15 AM CDT) [facility] Complement C3 128.0 90.0 - 180.0 mg/dL [facility] Blood specimen (specimen) 08/19/2020 6:15 AM CDT 08/19/2020 6:29 AM CDT Loren Carmona MD LAB BLOOD ORDERABLES Final Result [facility] [place] [address] * Hepatitis C antibody (08/19/2020 6:15 AM CDT) [facility] Hep C Ab Nonreactive Nonreactive [facility] Comment:Antibodies to HCV no t detected. Does NOT exclude the possibility of recent exposure to HCV. Blood specimen (specimen) 08/19/2020 6:15 AM CDT 08/19/2020 6:29 AM CDT Loren Carmona MD LAB MICROBIOLOGY - GENERAL ORDERABLES Edited Result - Final Performing Organization Address [facility] Co de Phone Number [facility] Department [place] [address] * Rheumatoid factor (08/19/2020 6:15 AM CDT) [facility] Rheumatoid factor, quant <10.0 0.1 - 15.0 IUnits/mL [facility] Blood specimen (specimen) 08/19/2020 6:15 AM CDT 08/19/2020 6:29 AM CDT us Loren Carmona MD LAB BLOOD ORDERABLES Final Result [facility] Department [place] [address] * Anti-Neutrophilic Cytoplasmic Antibody (ANCA) with Reflex to MPO and PR3 Abs (08/19/2020 6:15 AM CDT) Pathologist [facility] ANCA Negative [facility] Blood specimen (specimen) 08/19/2020 6:15 AM CDT 08/19/2020 6:29 AM CDT us Loren Carmona MD LAB BLOOD ORDERABLES Final Result Performing Organization Address City/[facility]/ZIP [place] [address] * JONNA Reflex to Quantitative and dsDNA (08/19/2020 6:15 AM CDT) [facility] JONNA Positive 1:160 [facility] Comment: Interpretive Data Normal range for JONNA Qualitative Antibody = Negative. 1. JONNA is performed using indirect immunofluorescence against HEp-2 cells 2. JONNA titers are performed on all positive qualitative results. 3. A significantly positive JONNA result is defined as a positive nuclear fluorescence at a titer of 1:80 or greater. 4. 15% of normal people above age 65 have significantly positive JONNA results. ??5% or less of normal people age 65 or under have significantly positive JONNA results. Current interpretive data was last revised on 2019. JONNA, quant 1:160 titer [facility] JONNA, interp Speckled [facility] Blood specimen (specimen) 08/19/2020 6:15 AM CDT 08/19/2020 6:29 AM CDT us Loren Carmona MD LAB BLOOD ORDERABLES Final Result [facility] [place] [address] * (ABNORMAL) CRP (acute phase) (08/19/2020 6:15 AM CDT) Pathologist [facility] CRP 47.8(H) <=10.0 mg/L [facility] Blood specimen (specimen) 08/19/2020 6:15 AM CDT 08/19/2020 6:29 AM CDT Loren Carmona MD LAB BLOOD ORDERABLES Final Result Performing Organization Address [facility] Co de Phone Number [facility] [place] [place] [address] * (ABNORMAL) Erythrocyte sedimentation rate (08/19/2020 6:15 AM CDT) [facility] Erythrocyte sedimentation rate 31(H) 1 - 20 mm/hr [facility] Blood specimen (specimen) 08/19/2020 6:15 AM CDT 08/19/2020 6:30 AM CDT Loren Carmnoa MD LAB BLOOD ORDERABLES Final Result Performing Organization Address [facility] de Phone Number [facility] [place] [address] * HIV 1/2 Antibody plus p24 Antigen (08/19/2020 6:15 AM CDT) [facility] HIV 1/2 ab + p24 ag Nonreactive Nonreactive [facility] Comment: Nonreactive for HIV-1 antigen and HIV-1/HIV-2 antibodies. No laboratory evidence of HIV infection. If acute HIV infection is suspected, consider testing for HIV-1 RNA. Blood specimen (specimen) 08/19/2020 6:15 AM CDT 08/19/2020 6:29 AM CDT us Loren Carmona MD LAB MICROBIOLOGY - GENERAL ORDERABLES Final Result Performing Organization Address [facility]/ZIP Co de Phone Number [facility] [place] [address] * CT Abdomen Pelvis W Contrast (08/19/2020 [...] it. Electronically signed by: Chon Burton M.D. us Dann Aldana MD IMG CT PROCEDURES Edited Res ult - Final * (ABNORMAL) Urinalysis, microscopic only (08/19/2020 12:22 AM CDT) WBC, ur 0-5 0 - 5 /HPF [facility] RBC, ur 11-20(A) 0 - 2 /HPF [facility] Epithelial cells, squamous, ur 1-5 0 - 5 /HPF [facility] Mucous, ur Present(A) [facility] Hyaline casts, ur 1-5 0 - 10 /LPF [facility] Culture Reflex Comment Reflex conditions for urine culture (WBC >10) not met. [facility] Urine 08/19/2020 12:2 2 AM CDT 08/19/2020 12:30 AM CDT us Dann Aldana MD LAB URINE ORDERABLES Final R esult [facility] [place] [address] * (ABNORMAL) Urinalysis reflex to microscopic and culture Urine (08/19/2020 12:22 AM CDT) Color, ur Yellow Yellow [facility] Clarity, ur Cloudy(A) Clear [facility] Specific gravity, ur 1.020 1.010 - 1.025 [facility] pH, urine 6 [facility] Protein, ur ql 1+(A) Negative [facility] Glucose, ur ql Negative Negative [facility] Ketones, ur Negative Negative [facility] Bilirubin, ur Negative Negative [facility] Blood, ur 2+(A) Negative [facility] Urobilinogen, ur <2.0 <2.0 mg/dL [facility] Nitrite, ur Negative Negative [facility] Leukocyte esterase, ur Negative Negative [facility] UA reflex comment Reflex to microscopic UA will be performed. [facility] Urine 08/19/2020 12:2 2 AM CDT 08/19/2020 12:30 AM CDT Narrative [facility] - 08/19/2020 12:55 AM CDT ?? Urine pH is affected by diet, medications, systemic acid-base disturbances, and renal tubular function. ??pH may affect urinary stone formation. ??For example, urine pH below 6.0 may help reduce the tendency for calcium phosphate stones and pH greater than 6.0 may reduce the tendency for uric acid stone formation. Source: [facility] [employer]. Last revised 04-04-2017 Dann Aldana MD LAB MICROBIOLOGY - GENERAL O RDERABLES Final Result Performing Organization Address City/[facility]/ZIP [place] [address] * (ABNORMAL) Fibrinogen (08/19/2020 12:05 AM CDT) Pathologist [facility] Fibrinogen 601(H) 170 - 400 mg/dL [facility] Blood specimen (specimen) 08/19/2020 12:05 AM CDT 08/19/2020 1:33 AM CDT Notinfile Unknown LAB BLOOD ORDERABLES Final Res ult Performing Organization Address [facility] [place] [address] * Influenza A/B, RSV, and COVID-19 PCR Nasopharyngeal (08/19/2020 12:05 AM CDT) Pathologist [facility] Influenza A RNA Negative Negative [facility] Influenza B RNA Negative Negative [facility] RSV RNA Negative Negative [facility] Comment: Interpretive data: Testing performed by [facility] ([phone]). This test is performed using the [employer] Xpert Assay. This is a multiplex, real- time reverse transcriptase PCR assay that detects influenza A, influenza B, and respiratory syncytial virus RNA. This assay has been cleared by the [place] Food and Drug Administration, and its performance characteristics have been verified by the [facility]. Additional sample types have been validated according to CLIA regulations. Interpretive data last revised 2020. COVID-19 RNA Negative Negative [facility] Comment: Interpretive data: Synonyms for this test include: PCR and NAAT . ??This test is performed using the [employer] Xpert Xpress assay. This is a real-time RT-PCR test intended for the qualitative detection of nucleic acid from the SARS-CoV-2. This assay has been reviewed by the FDA for Emergency Use Authorization (EUA). The performance characteristics have been verified by the performing laboratory. Results must be considered in the clinical context and a negative result does not rule out infection. Interpretive data last revised April 28, 2020. Employeed in healthcare? No [facility] status? No [facility] Group care resident? No [facility] Hospitalized? No [facility] Is patient in ICU? No [facility] Symptomatic as defined by CDC? No [facility] Nasopharyngeal 08/19/2020 12 :05 AM CDT 08/19/2020 1:03 AM CDT Narrative [facility] - 08/19/2020 1:43 AM CDT Reason for testing?->Bed placement or semi-private room Known exposure to confirmed or suspected COVID-19 case?->No Dann Aldana MD LAB MICROBIOLOGY - GENERAL O RDERABLES Final Result Performing Organization Address City/[facility]/ZIP Co de Phone Number [facility] Department [place] [address] * aPTT (08/19/2020 12:05 AM CDT) aPTT 32 27 - 37 sec [facility] Comment: Interpretive Data Therapeutic heparin range: 60.0 - 94.0 seconds. Based on correlation with therapeutic heparin activity range of 0.3-0.7 Units/mL. Current interpretive data was last revised on 2020. Blood specimen (specimen) 08/19/2020 12:05 AM CDT 08/19/2020 1:33 AM CDT Dann Aldana MD LAB BLOOD ORDERABLES Final R esult Performing Organization Address City/[facility]/ZIP Co de Phone Number [facility] Department [place] [address] * Protime-INR (08/19/2020 12:05 AM CDT) PT 12.4 9.5 - 13.6 sec [facility] INR 1.1 0.9 - 1.2 [facility] Comment: Interpretive data Oral anticoagulant therapeutic ranges: Venous thromboembolism prophylaxis or treatment: 2.0-3.0 CARDIOLOGY Standard range: 2.0-3.0 High-intensity range: 2.5-3.5 Refer to indication-specific guidelines for appropriate target ranges for prosthetic heart valve replacement. Current interpretive data was last revised on 2019. Blood specimen (specimen) 08/19/2020 12:05 AM CDT 08/19/2020 1:33 AM CDT Dann Aldana MD LAB BLOOD ORDERABLES Final R esult Performing Organization Address City/[facility] Co de Phone Number [facility] Department [place] [address] * Potassium, whole blood (08/19/2020 12:05 AM CDT) Pathologist [facility] Potassium, bld 3.7 3.3 - 4.9 mmol/L [facility] Comment: Interpretive Data Unable to assess hemolysis. ??Invitro hemolysis causes falsely elevated potassium. Current Interpretive Data was last revised on 2019. Blood specimen (specimen) 08/19/2020 12:05 AM CDT 08/19/2020 1:02 AM CDT Dann Aldana MD LAB BLOOD ORDERABLES Final R esult Performing Organization Address City/State/[facility] Co de Phone Number [facility] Department [place] [address] * Check Sample (08/19/2020 12:05 AM CDT) Pathologist [facility] ABO Rh O Positive [facility] HCLL OTHER 08/19/2020 12:0 5 AM CDT 08/19/2020 1:08 AM CDT us Notinfile Unknown LAB BLOOD ORDERABLES Final Res ult [facility] [place] [address] * (ABNORMAL) Differential, auto (08/18/2020 6:50 PM CDT) Neutrophil abs 12.4(H) 1.7 - 6.5 K/cumm [facility] Imm gran abs 0.1 0.0 - 0.1 K/cumm [facility] Lymphocyte abs 1.7 0.8 - 3.3 K/cumm [facility] Monocyte abs 0.9(H) 0.2 - 0.8 K/cumm [facility] Eosinophil abs 0.2 0.0 - 0.5 K/cumm [facility] Basophil abs 0.1 0.0 - 0.1 K/cumm [facility] Neutrophil pct 80.7 % [facility] Comment: Interpretive Data Percent cell count reference ranges are not reported, since discordance with absolute values may lead to misinterpretation of CBC data. Current Interpretive Data was last revised on 2017. Imm gran pct 0.4 % [facility] Comment: Interpretive Data Percent cell count reference ranges are not reported, since discordance with absolute values may lead to misinterpretation of CBC data. Current Interpretive Data was last revised on 2017. Lymphocyte pct 11.4 % [facility] Comment: Interpretive Data Percent cell count reference ranges are not reported, since discordance with absolute values may lead to misinterpretation of CBC data. Current Interpretive Data was last revised on 2017. Monocyte pct 5.9 % [facility] Comment: Interpretive Data Percent cell count reference ranges are not reported, since discordance with absolute values may lead to misinterpretation of CBC data. Current Interpretive Data was last revised on 2017. Eosinophil pct 1.2 % [facility] Comment: Interpretive Data Percent cell count reference ranges are not reported, since discordance with absolute values may lead to misinterpretation of CBC data. Current Interpretive Data was last revised on 2017. Basophil pct 0.4 % [facility] Comment: Interpretive Data Percent cell count reference ranges are not reported, since discordance with absolute values may lead to misinterpretation of CBC data. Current Interpretive Data was last revised on 2017. Blood specimen (specimen) 08/18/2020 6:50 PM CDT 08/18/2020 7:35 PM CDT Román Hernandez MD LAB BLOOD ORDERABLES Final R esult Performing Organization Address [facility] Co de Phone Number [facility] Department [place] [address] * Type and screen (08/18/2020 6:50 PM CDT) Pathologist [facility] Denae, indirect Negative [facility] ABO Rh O Positive [facility] Blood specimen (specimen) 08/18/2020 6:50 PM CDT 08/18/2020 7:32 PM CDT Narrative [facility] - 08/18/2020 8:27 PM CDT Has the patient had Daratumumab or Isatuximab in the past 6 months?->Unknown Román Hernandez MD LAB BLOOD BANK TEST ORDERABL ES Final Result Performing Organization Address [facility] Co de Phone Number [facility] [place] [address] * (ABNORMAL) Basic metabolic panel (08/18/2020 6:50 PM CDT) Pathologist [facility] Sodium 138 135 - 145 mmol/L [facility] Potassium, pl See Comment 3.3 - 4.9 mmol/L [facility] Comment:Credited; Hemolyzed Specimen Chloride 105 97 - 110 mmol/L [facility] CO2 24 22 - 32 mmol/L [facility] Comment:Hemolyzed; result ma y be falsely decreased Anion gap 9 2 - 15 mmol/L [facility] BUN 12 8 - 25 mg/dL [facility] Creatinine 0.64(L) 0.80 - 1.30 mg/dL [facility] Glucose 94 70 - 199 mg/dL [facility] Comment: Interpretive Data Fasting glucose >/= [...] interpretive data was last revised 2017. Calcium 8.9 8.5 - 10.3 mg/dL [facility] Blood specimen (specimen) 08/18/2020 6:50 PM CDT 08/18/2020 7:34 PM CDT us Román Hernandez MD LAB BLOOD ORDERABLES Final R esult [facility] [place] [address] * (ABNORMAL) CBC with auto differential (08/18/2020 6:50 PM CDT) WBC 15.3(H) 3.8 - 9.9 K/cumm [facility] Hgb 15.2 13.0 - 17.5 g/dL [facility] Hct 44.8 38.9 - 50.3 % [facility] Plt 433(H) 150 - 400 K/cumm [facility] MPV 11.0 9.1 - 12.3 fL [facility] RBC 5.07 4.30 - 5.80 M/cumm [facility] MCV 88.4 81.3 - 96.4 fL [facility] MCH 30.0 27.1 - 33.3 pg [facility] MCHC 33.9 32.3 - 35.7 g/dL [facility] RDW CV 12.7 11.1 - 14.9 % [facility] RDW SD 39.7 35.7 - 48.1 fL [facility] NRBC abs 0.00 0.00 - 0.01 K/cumm [facility] Blood specimen (specimen) 08/18/2020 6:50 PM CDT 08/18/2020 7:35 PM CDT us Román Hernandez MD LAB BLOOD ORDERABLES Final R esult [facility] [place] [address] documented in this encounter Visit Diagnoses Diagnosis Petechiae- Primary Spontaneous ecchymoses Petechiae Spontaneous ecchymoses Colitis Other and unspecified noninfectious gastroenteritis and colitis Renal lesion Chronic obstructive pulmonary disease with acute exacerbation (HCC) documented in this encounter Admitting Diagnoses Diagnosis Petechiae Spontaneous ecchymoses documented in this encounter Administered Medications Inactive Administered Medications - up to 3 most recent administrations Medication Order MAR Action Action Date Dose Rate Site acetaminophen (TYLENOL) tablet 650 mg 650 mg, oral, Every 4 hours PRN, 1st line for pain, fever, fever greater than 38.3 C, Starting on Sat08/19/20 at 0537, Indications: Fever, PainIndications:Fever,Pain Given 08/22/2020 9:50 PM CDT 650 mg Given 08/21/2020 10:12 PM CDT 650 mg Given 08/20/2020 10:02 PM CDT 650 mg aspirin enteric coated tablet 81 mg 81 mg, oral, Daily, First dose on Sat08/19/20 at 0900, Do not crush, chew, cut, dissolve, open or otherwise manipulate tablet/capsule., On hold since Sat08/19/2020 at 1520 until manually unheld Given 08/19/2020 8:19 AM CDT 81 mg atorvastatin (LIPITOR) tablet 40 mg 40 mg, oral, Daily, First dose on Sat08/19/20 at 0900 Given 08/24/2020 9:05 AM CDT 40 mg Given 08/23/2020 8:30 AM CDT 40 mg Given 08/22/2020 8:55 AM CDT 40 mg carBAMazepine (TEGretol) tablet 600 mg 600 mg, oral, 2 times daily, First dose on Sat08/19/20 at 0900 Given 08/24/2020 9:04 AM CDT 600 mg Given 08/23/2020 8:40 PM CDT 600 mg Given 08/23/2020 8:30 AM CDT 600 mg ciprofloxacin (CIPRO) 400 mg/200 mL in dextrose 5% (premix) 400 mg 400 mg, intravenous, at 200 mL/hr, Administer over 60 Minutes, Every 8 hours scheduled, First dose on Sat08/19/20 at 0110, Indications: Abdominal/Pelvic InfectionIndications:Abdo stuart/Pelvic Infection New Bag 08/19/2020 1:28 AM CDT 400 mg 200 mL/hr dextrose (D10W) 10% bolus 250 mL 250 mL, intravenous, at 1,000 mL/hr, Administer over 15 Minutes, Every 15 min PRN, blood glucose less than 70 mg/dL and UNABLE to swallow/take PO glucose/juice., Starting on 08/20/20 at 1256, After treatment for hypoglycemia, recheck BG followed by treatment every 15 minutes until the BG is greater than 100 mg/dL. Then check BG 1 hour post treatment. If BG is less than 100 mg/dL, repeat Q15 minute BG checks and treatment. Call MD for each episode of hypoglycemia., Indications: hypoglycemic disorderIndications:hypog lycemic disorder dextrose (GLUTOSE) 40 % gel 15 g 15 g, oral, Every 15 min PRN, low blood sugar, blood glucose less than 70 mg/dL, Starting on 08/20/20 at 1256, If patient is alert and able to eat/drink, give 15 gm glucose or one juice (4 fluid ounces) NOT ORANGE JUICE. After treatment for hypoglycemia, recheck BG followed by treatment every 15 minutes until the BG is greater than 100 mg/dL. Then check BG 1 hour post-treatment. If BG is less than 100 mg/dL, repeat Q15 minute BG checks and treatment. Call MD for each episode of hypoglycemia. CIVIL DESIGN SPECIALIST STATES GLUTOSE-15 CONTAINS GLUCOSE 40% W/W (50% W/V), Indications: hypoglycemic disorderIndications:hypog lycemic disorder enoxaparin (LOVENOX) syringe 40 mg 40 mg, subcutaneous, Daily (for enoxaparin), First dose on Sat08/19/20 at 2100, Indications: Deep Vein Thrombosis PreventionIndications:Alyson p Vein Thrombosis Prevention Given 08/23/2020 8:40 PM CDT 40 mg Right Lower Abdomen Given 08/22/2020 9:49 PM CDT 40 mg Le ft Lower Abdomen Given 08/21/2020 10:16 PM CDT 40 mg L eft Lower Abdomen fluticasone furoate (ARNUITY) 100 mcg/actuation inhaler 1 puff 1 puff, inhalation, Daily (correspondence clerk), First dose on Sat08/19/20 at 0900, Rinse mouth with water after use. Do not swallow. Given 08/20/2020 9:10 AM CDT 1 puff Given 08/19/2020 9:14 AM CDT 1 puff fluticasone furoate (ARNUITY) 100 mcg/actuation inhaler 1 puff 1 puff, inhalation, Daily, First dose (after last modification) on Sat08/21/20 at 0900, Rinse mouth with water after use. Do not swallow. Given 08/24/2020 9:07 AM CDT 1 puff Given 08/23/2020 8:43 AM CDT 1 puff Given 08/22/2020 8:55 AM CDT 1 puff glucagon injection 1 mg 1 mg, intramuscular, Administer over 1 Minutes, Every 30 min PRN, low blood sugar, blood glucose less than 70 mg/dL AND no IV access AND unable to take PO glucose/jiuce., Starting on 08/20/20 at 1256, After Glucagon is administered, position patient on side if possible to avoid aspiration. Obtain IV access. Follow glucagon treatment with glucose treatment or IV dextrose. After treatment for hypoglycemia, recheck BG followed by treatment every 15 minutes until the BG is greater than 100 mg/dL. Then check BG 1 hour post treatment. If BG is less than 100 mg/dL, repeat Q15 minute BG checks and treatment. Call MD for each episode of hypoglycemia. Reconstitute 1 mg vial with 1 mL SWFI. Use immediately following reconstitution., Indications: HypoglycemiaIndications:Hypoglycemia hydroCHLOROthiazide (HYDRODIURIL) tablet 25 mg 25 mg, oral, Daily, First dose on Sat08/19/20 at 0900 Given 08/24/2020 9:06 AM CDT 25 mg Given 08/23/2020 8:30 AM CDT 25 mg Given 08/22/2020 8:55 AM CDT 25 mg hydrOXYzine (ATARAX) tablet 25 mg 25 mg, oral, Once, On 08/21/20 at 1700, For 1 dose Given 08/21/2020 6:15 PM CDT 25 mg insulin lispro (HumaLOG, ADMELOG) 100 unit/mL injection 1-2 Units 1-2 Units, subcutaneous, Nightly, First dose on 08/20/20 at 2100, Blood Sugar Low Dose PM - PO patients 200 or less No Insulin 201 - 250 1 unit 251 - 299 2 units Greater than 299 Call MD for hyperglycemia management instructions Do NOT hold for NPO status., Indications: Diabetes MellitusIndications:Araceli betes Mellitus insulin lispro (HumaLOG, ADMELOG) 100 unit/mL injection 1-3 Units 1-3 Units, subcutaneous, 3 times daily with meals, First dose on 08/20/20 at 1330, Blood Sugar Low Dose meal time - PO patients 175 or less No Insulin 176 - 200 1 unit 201 - 250 2 units 251 - 299 3 units Greater than 299 Call MD for hyperglycemia management instructions Do NOT hold for NPO status., Indications: Diabetes MellitusIndications:Araceli betes Mellitus Given 08/22/2020 5:22 PM CDT 2 Units Left Lower Abdomen ioversoL (OPTIRAY 350) syringe syringe 100 mL 100 mL, intravenous, Once in imaging, contrast, Starting on Sat08/19/20 at 0039, For 1 dose Contrast Given 08/19/2020 12:44 AM CDT 100 mL ioversoL (OPTIRAY 350) syringe syringe 100 mL 100 mL, intravenous, Once in imaging, contrast, Starting on Sat08/23/20 at 1151, For 1 dose Contrast Given 08/23/2020 11:51 AM CDT 100 mL Lactated Ringer's (LR) bolus 1,000 mL 1,000 mL, intravenous, Once, On Funmi 08/18/20 at 2348, For 1 dose New Bag 08/19/2020 12:06 AM CDT 1,000 mL Lactated Ringer's (LR) bolus 1,000 mL 1,000 mL, intravenous, at 500 mL/hr, Administer over 2 Hours, Once, On 08/20/20 at 1315, For 1 dose New Bag 08/20/2020 1:05 PM CDT 1,000 mL 500 mL/hr lisinopriL (PRINIVIL,ZESTRIL) tablet 40 mg 40 mg, oral, Daily, First dose on Sat08/19/20 at 0900 Given 08/24/2020 9:05 AM CDT 40 mg Given 08/23/2020 8:30 AM CDT 40 mg Given 08/22/2020 8:55 AM CDT 40 mg metroNIDAZOLE (FLAGYL) 500 mg/100 mL in sodium chloride (premix) 500 mg 500 mg, intravenous, at 200 mL/hr, Administer over 30 Minutes, Once, On Sat08/19/20 at 0109, For 1 dose, Room temperature only, Indications: Abdominal/Pelvic InfectionIndications:Abdominal/Pel roberta Infection New Bag 08/19/2020 1:28 AM CDT 500 mg 200 mL/hr morphine injection 4 mg 4 mg, intravenous, Administer over 4 Minutes, Once, On Funmi 08/18/20 at 2348, For 1 dose Given 08/19/2020 12:05 AM CDT 4 mg ondansetron (ZOFRAN) injection 4 mg 4 mg, intravenous, Administer over 2 Minutes, Once, On Sat08/19/20 at 0020, For 1 dose Given 08/19/2020 12:22 AM CDT 4 mg oxyCODONE (ROXICODONE) tablet 5 mg 5 mg, oral, 4 times daily PRN, 2nd line for pain, Starting on Sat08/19/20 at 0955, Indications: PainIndications:Pain Given 08/19/2020 4:15 PM CDT 5 mg Given 08/19/2020 10:02 AM CDT 5 mg predniSONE (DELTASONE) tablet 80 mg 80 mg, oral, Daily, First dose (after last modification) on Sat08/21/20 at 0900 Given 08/24/2020 9:01 AM CDT 80 mg Given 08/23/2020 8:30 AM CDT 80 mg Given 08/22/2020 8:55 AM CDT 80 mg predniSONE (DELTASONE) tablet 90 mg 90 mg, oral, Daily, First dose on Sat08/19/20 at 1715 Given 08/20/2020 9:52 AM CDT 90 mg Given 08/19/2020 5:32 PM CDT 90 mg ramelteon (ROZEREM) tablet 8 mg 8 mg, oral, Nightly, First dose on Sat08/21/20 at 2100, Indications: Sleep-Onset InsomniaIndications:Sleep-Onset Insomnia Given 08/23/2020 8:40 PM CDT 8 m g Given 08/22/2020 9:49 PM CDT 8 mg Given 08/21/2020 10:12 PM CDT 8 mg rOPINIRole (REQUIP) tablet 0.5 mg 0.5 mg, oral, Nightly, First dose on Sat08/19/20 at 2100 Given 08/23/2020 8:40 PM CDT 0.5 mg Given 08/22/2020 9:49 PM CDT 0.5 mg Given 08/21/2020 10:12 PM CDT 0.5 mg sodium chloride 0.9% flush 0.5-20 mL 0.5-20 mL, intra-catheter, Every 8 hours scheduled, First dose on Sat08/19/20 at 0615, Flush volume based on line type and size. Given 08/24/2020 2:34 PM CDT 10 mL Given 08/24/2020 6:16 AM CDT 10 mL Given 08/23/2020 8:40 PM CDT 10 mL triamcinolone (KENALOG) 0.1 % cream topical, 2 times daily PRN, irritation, rash, Starting on Sat08/19/20 at 1155, Apply to affected area: rash Given 08/23/2020 8:32 AM CDT Given 08/21/2020 9:50 AM CDT umeclidinium-vilanteroL (ANORO ELLIPTA) 62.5-25 mcg/actuation inhaler 1 puff 1 puff, inhalation, Daily (correspondence clerk), First dose on Sat08/19/20 at 0900 Given 08/20/2020 9:10 AM CDT 1 puff Given 08/19/2020 9:14 AM CDT 1 puff umeclidinium-vilanteroL (ANORO ELLIPTA) 62.5-25 mcg/actuation inhaler 1 puff 1 puff, inhalation, Daily, First dose (after last modification) on Sat08/21/20 at 0900 Given 08/24/2020 9:07 AM CDT 1 puff Given 08/23/2020 8:43 AM CDT 1 puff Given 08/22/2020 8:55 AM CDT 1 puff valproate (DEPAKENE) capsule 500 mg 500 mg, oral, 4 times daily, First dose on Sat08/19/20 at 0800, Do not crush, break, or open. Given 08/24/2020 12:08 PM CDT 500 mg Given 08/24/2020 9:03 AM CDT 500 mg Given 08/23/2020 8:40 PM CDT 500 mg documented in this encounter Active and Recently Administered Medications Times are shown in CDT. Scheduled Medication Order 08/22/2020 08/23/2020 08/24/2020 aspirin enteric coated tablet 81 mg 81 mg, oral, Daily, First dose on Sat08/19/20 at 0900, Do not crush, chew, cut, dissolve, open or otherwise manipulate tablet/capsule., On hold since Sat08/19/2020 at 1520 until manually unheld 09 (Dose Auto Held - Provider: Samantha Antonio MD) 899 (Dose Auto Held) 09 (Dose Auto Held)2045 (Unheld by Provider - Provider: Automatic Discharge Provider) atorvastatin (LIPITOR) tablet 40 mg 40 mg, oral, Daily, First dose on Sat08/19/20 at 0900 0855 (Given - Provider: Radha Helton RN) 0830 (Given - Provider: Radha Helton RN) 0905 (Given - Provider: Radha Helton, LOCO) carBAMazepine (TEGretol) tablet 600 mg 600 mg, oral, 2 times daily, First dose on Sat08/19/20 at 0900 0855 (Given - Provider: Radha Helton RN)2149 (Given - Provider: Ema Ortzi RN) 0830 (Given - Provider: Radha Helton RN)2040 (Given - Provider: Steph Macias RN) 0904 (Given - Provider: Radha Helton RN) enoxaparin (LOVENOX) syringe 40 mg 40 mg, subcutaneous, Daily (for enoxaparin), First dose on Sat08/19/20 at 2100, Indications: Deep Vein Thrombosis Prevention 2148 (Given - Provider: Ema Ortiz RN) 2039 (Given - Provider: Steph Macias, LOCO) fluticasone furoate (ARNUITY) 100 mcg/actuation inhaler 1 puff 1 puff, inhalation, Daily, First dose (after last modification) on Sat08/21/20 at 0900, Rinse mouth with water after use. Do not swallow. 0855 (Given - Provider: Radha Helton RN) 0843 (Given - Provider: Radha Helton RN) 0907 (Given - Provider: Radha Helton RN) hydroCHLOROthiazide (HYDRODIURIL) tablet 25 mg 25 mg, oral, Daily, First dose on Sat08/19/20 at 0900 0855 (Given - Provider: Radha Helton RN) 0830 (Given - Provider: Radha Helton RN) 0906 (Given - Provider: Radha Helton, LOCO) insulin lispro (HumaLOG, ADMELOG) 100 unit/mL injection 1-2 Units 1-2 Units, subcutaneous, Nightly, First dose on Sat08/20/20 at 2100, Blood Sugar Low Dose PM - PO patients 200 or less No Insulin 201 - 250 1 unit 251 - 299 2 units Greater than 299 Call MD for hyperglycemia management instructions Do NOT hold for NPO status., Indications: Diabetes Mellitus 2149 (Not Given - Provider: Ema Ortiz RN - Reason: Order parameters not met) 2037 (Not Given - Provider: Steph Macias RN - Reason: Order parameters not met - Comment: BG is 137) insulin lispro (HumaLOG, ADMELOG) 100 unit/mL injection 1-3 Units 1-3 Units, subcutaneous, 3 times daily with meals, First dose on Sat08/20/20 at 1330, Blood Sugar Low Dose meal time - PO patients 175 or less No Insulin 176 - 200 1 unit 201 - 250 2 units 251 - 299 3 units Greater than 299 Call MD for hyperglycemia management instructions Do NOT hold for NPO status., Indications: Diabetes Mellitus 0816 (Not Given - Provider: Radha Helton RN - Reason: Order parameters not met - Comment: [phone] (Not Given - Provider: Radha Helton RN - Reason: Order parameters not met - Comment: [phone] (Given - Provider: Radha Helton RN) 0758 (Not Given - Provider: Radha Helton RN - Reason: Order parameters not met - Comment: [phone] (Not Given - Provider: Radha Helton RN - Reason: Order parameters not met - Comment: [phone] (Not Given - Provider: Radha Helton RN - Reason: Order parameters not met - Comment: BS 120) 0907 (Not Given - Provider: Radha Helton RN - Reason: Order parameters not met - Comment: bs [phone] (Not Given - Provider: Radha Helton RN - Reason: Order parameters not met - Comment: BS 121) lisinopriL (PRINIVIL,ZESTRIL) tablet 40 mg 40 mg, oral, Daily, First dose on Sat08/19/20 at 0900 0855 (Given - Provider: Radha Helton RN) 0830 (Given - Provider: Radha Helton, LOCO) 0905 (Given - Provider: Radha Helton, LOCO) predniSONE (DELTASONE) tablet 80 mg 80 mg, oral, Daily, First dose (after last modification) on 08/21/20 at 0900 0855 (Given - Provider: Radha Helton RN) 0830 (Given - Provider: Radha Helton, LOCO) 0813 (Held by Provider - Provider: Loren Carmona MD - Reason: Pending Results)0814 (Unheld by Provider - Provider: Loren Carmona MD)0901 (Given - Provider: Radha Helton, LOCO) ramelteon (ROZEREM) tablet 8 mg 8 mg, oral, Nightly, First dose on 08/21/20 at 2100, Indications: Sleep-Onset Insomnia 2148 (Given - Provider: Ema Ortiz RN) 2039 (Given - Provider: Steph Macias RN) rOPINIRole (REQUIP) tablet 0.5 mg 0.5 mg, oral, Nightly, First dose on Sat08/19/20 at 2100 214 (Given - Provider: Ema Ortiz RN) 2039 (Given - Provider: Steph Macias RN) sodium chloride 0.9% flush 0.5-20 mL 0.5-20 mL, intra-catheter, Every 8 hours scheduled, First dose on Sat08/19/20 at 0615, Flush volume based on line type and size. 0738 (Given - Provider: Ema Ortiz RN)1314 (Given - Provider: Radha Helton RN)2151 (Given - Provider: Ema Ortiz RN) 0721 (Given - Provider: Ema Ortiz RN)1214 (Given - Provider: Radha Helton RN)204 (Given - Provider: Steph Macias RN) 0616 (Given - Provider: Steph Macias, LOCO)1434 (Given - Provider: Radha Helton, LOCO) umeclidinium-vilanteroL (ANORO ELLIPTA) 62.5-25 mcg/actuation inhaler 1 puff 1 puff, inhalation, Daily, First dose (after last modification) on Sat08/21/20 at 0900 0855 (Given - Provider: Radha Helton RN) 0843 (Given - Provider: Radha Helton RN) 0907 (Given - Provider: Radha Helton, LOCO) valproate (DEPAKENE) capsule 500 mg 500 mg, oral, 4 times daily, First dose on Sat08/19/20 at 0800, Do not crush, break, or open. 0855 (Given - Provider: Radha Helton RN)1314 (Given - Provider: Radha Helton RN)1722 (Given - Provider: Radha Helton RN)2149 (Given - Provider: Ema Ortiz RN) 0830 (Given - Provider: Radha Helton RN)1214 (Given - Provider: Radha Helton RN)1723 (Given - Provider: Radha Helton RN)2040 (Given - Provider: Steph Macias RN) 0903 (Given - Provider: Radha Helton RN)1208 (Given - Provider: Radha Helton RN) PRN Medication Order 08/22/2020 08/23/2020 08/24/2020 acetaminophen (TYLENOL) tablet 650 mg 650 mg, oral, Every 4 hours PRN, 1st line for pain, fever, fever greater than 38.3 C, Starting on Sat08/19/20 at 0537, Indications: Fever, Pain 2150 (Given - Provider: Ema Ortiz RN) albuterol HFA (PROVENTIL HFA,VENTOLIN HFA,PROAIR HFA) 90 mcg/actuation inhaler 1 puff 1 puff, inhalation, Every 6 hours PRN (correspondence clerk), wheezing, Starting on Sat08/19/20 at 0537 dextrose (D10W) 10% bolus 250 mL(Linked Group 1) 250 mL, intravenous, at 1,000 mL/hr, Administer over 15 Minutes, Every 15 min PRN, blood glucose less than 70 mg/dL and UNABLE to swallow/take PO glucose/juice., Starting on 08/20/20 at 1256, After treatment for hypoglycemia, recheck BG followed by treatment every 15 minutes until the BG is greater than 100 mg/dL. Then check BG 1 hour post treatment. If BG is less than 100 mg/dL, repeat Q15 minute BG checks and treatment. Call MD for each episode of hypoglycemia., Indications: hypoglycemic disorder dextrose (GLUTOSE) 40 % gel 15 g(Linked Group 1) 15 g, oral, Every 15 min PRN, low blood sugar, blood glucose less than 70 mg/dL, Starting on 08/20/20 at 1256, If patient is alert and able to eat/drink, give 15 gm glucose or one juice (4 fluid ounces) NOT ORANGE JUICE. After treatment for hypoglycemia, recheck BG followed by treatment every 15 minutes until the BG is greater than 100 mg/dL. Then check BG 1 hour post-treatment. If BG is less than 100 mg/dL, repeat Q15 minute BG checks and treatment. Call MD for each episode of hypoglycemia. CIVIL DESIGN SPECIALIST STATES GLUTOSE-15 CONTAINS GLUCOSE 40% W/W (50% W/V), Indications: hypoglycemic disorder glucagon injection 1 mg 1 mg, intramuscular, Administer over 1 Minutes, Every 30 min PRN, low blood sugar, blood glucose less than 70 mg/dL AND no IV access AND unable to take PO glucose/jiuce., Starting on 08/20/20 at 1256, After Glucagon is administered, position patient on side if possible to avoid aspiration. Obtain IV access. Follow glucagon treatment with glucose treatment or IV dextrose. After treatment for hypoglycemia, recheck BG followed by treatment every 15 minutes until the BG is greater than 100 mg/dL. Then check BG 1 hour post treatment. If BG is less than 100 mg/dL, repeat Q15 minute BG checks and treatment. Call MD for each episode of hypoglycemia. Reconstitute 1 mg vial with 1 mL SWFI. Use immediately following reconstitution., Indications: Hypoglycemia ioversoL (OPTIRAY 350) syringe syringe 100 mL (COMPLETED) 100 mL, intravenous, Once in imaging, contrast, Starting on Sat08/23/20 at 1151, For 1 dose 1151 (Contrast Given - Provider: Javier Beltrán, RT) oxyCODONE (ROXICODONE) tablet 5 mg 5 mg, oral, 4 times daily PRN, 2nd line for pain, Starting on Sat08/19/20 at 0955, Indications: Pain sodium chloride 0.9% flush 0.5-20 mL 0.5-20 mL, intra-catheter, As needed, line care, Starting on Sat08/19/20 at 0537, Flush volume based on line type and size. Flush before and after each use. triamcinolone (KENALOG) 0.1 % cream topical, 2 times daily PRN, irritation, rash, Starting on Sat08/19/20 at 1155, Apply to affected area: rash 0832 (Given - Provider: Radha Helton RN) Linked Groups Order Group 1: dextrose (GLUTOSE) 40 % gel 15 gJump to med 15 g, oral, Every 15 min PRN, low blood sugar, blood glucose less than 70 mg/dL, Starting on 08/20/20 at 1256, If patient is alert and able to eat/drink, give 15 gm glucose or one juice (4 fluid ounces) NOT ORANGE JUICE. After treatment for hypoglycemia, recheck BG followed by treatment every 15 minutes until the BG is greater than 100 mg/dL. Then check BG 1 hour post-treatment. If BG is less than 100 mg/dL, repeat Q15 minute BG checks and treatment. Call MD for each episode of hypoglycemia. CIVIL DESIGN SPECIALIST STATES GLUTOSE-15 CONTAINS GLUCOSE 40% W/W (50% W/V), Indications: hypoglycemic disorder Or dextrose (D10W) 10% bolus 250 mLJump to med 250 mL, intravenous, at 1,000 mL/hr, Administer over 15 Minutes, Every 15 min PRN, blood glucose less than 70 mg/dL and UNABLE to swallow/take PO glucose/juice., Starting on 08/20/20 at 1256, After treatment for hypoglycemia, recheck BG followed by treatment every 15 minutes until the BG is greater than 100 mg/dL. Then check BG 1 hour post treatment. If BG is less than 100 mg/dL, repeat Q15 minute BG checks and treatment. Call MD for each episode of hypoglycemia., Indications: hypoglycemic disorder documented in this encounter Orders Medications Ordered That Buck ht Not Have Been Administered Count Last Ordered Date First Ordered Date dextrose (D10W) 10% bolus 250 mL 1 08/21/19 21 dextrose (GLUTOSE) 40 % gel 15 g 1 08/21/19 21 glucagon injection 1 mg 1 08/20/2020 insulin lispro (HumaLOG, ADM ELOG) 100 unit/mL injection 1-2 Units 1 08/20/2020 albuterol HFA (PROVENTIL HFA ,VENTOLIN HFA,PROAIR HFA) 90 mcg/actuation inhaler 1 puff 1 08/19/2020 atorvastatin (LIPITOR) tablet 20 mg 1 08/19 sodium chloride 0.9% flush 0.5-20 mL 1 07/24 Lab Orders Without Results Count Last Ordered D ate First Ordered Date POCT GLUCOSE DEVICE 8 08/24/2020 08/23/19 21 HAPTOGLOBIN 1 08/20/2020 LACTATE DEHYDROGENASE 1 08/20/2020 BRAYAN ANTIBODY EVALUATION WITH REFLEX 1 08/19 HEPATIC FUNCTION PANEL 2 08/19/2020 FIBRINOGEN 1 08/18/2020 Diet Count Last Ordered Date First Orde red Date ADULT DISCHARGE DIET 1 08/24/2020 Nursing Count Last Ordered Date First Orde red Date DISCHARGE ACTIVITY 1 08/24/2020 DISCHARGE CALL PROVIDER 8 08/24/2020 DISCHARGE INSTRUCTIONS 1 08/24/2020 WEIGH PATIENT 1 08/19/2020 Consult Count Last Ordered Date First Orde red Date IP CONSULT TO RHEUMATOLOGY 1 08/24/2020 IP CONSULT TO DERMATOLOGY 1 08/19/2020 IP CONSULT TO NEPHROLOGY 1 08/19/2020 ADT Patient Update Count Last Ordered Date Firs t Ordered Date ED IP DECISION TO ADMIT 1 08/19/2020 documented in this encounter Additional Health Concerns 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
--- OUTSIDE RECORDS SUMMARY | 2024-03-22 20:47 | XMS_ITS | Encounter Summary ---
Author Organization [facility] Healthcare Address [address] [place] [address] Care Team Providers Care Lining Brusher Name Role Phone Stephan Donald MD Primary Care Provide r Encounter Details Date Type Department Care Team (Late st Contact Info) Description 12/16/2020 11:05 AM CDT Lab [facility] ([facility]) [address] [place] [phone] José Miguel Piedra MD [address] 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 Gender Identity Not on file Sexual Orientation Not on file documented as of this encounter Discharge Disposition Disposition Code Departure Means Destination Discharge to home or self care documented in this encounter Plan of Treatment Not on file documented as of this encounter Procedures Procedure Name Priority Date/Time Associated Diagnosis Comments C4 COMPLEMENT Routine 12/16/2020 11:04 AM CDT Leukocytoclastic vasculitis (CMS/HCC) (HCC) URINALYSIS AND REFLEX TO MICROSCOPIC Routine 12/16/2020 11:04 AM CDT Leukocytoclastic vasculitis (CMS/HCC) (HCC) PROTEIN / CREATININE RATIO, URINE, RANDOM Routine 12/16/2020 11:04 AM CDT Leukocytoclastic vasculitis (CMS/HCC) (HCC) URINALYSIS, MICROSCOPIC ONLY Routine 12/16/2020 11:04 AM CDT Leukocytoclastic vasculitis (CMS/HCC) (HCC) ERYTHROCYTE SEDIMENTATION RATE Routine 12/16/2020 11:04 AM CDT Leukocytoclastic vasculitis (CMS/HCC) (HCC) C3 COMPLEMENT Routine 12/16/2020 11:04 AM CDT Leukocytoclastic vasculitis (CMS/HCC) (HCC) CRP (ACUTE PHASE) Routine 12/16/2020 11: 04 AM CDT Leukocytoclastic vasculitis (CMS/HCC) (HCC) PROTEIN ELECTROPHORESIS, WITH REFLEX, SERUM Routine 12/16/2020 11:04 AM CDT Leukocytoclastic vasculitis (CMS/HCC) (HCC) documented in this encounter Results * (ABNORMAL) Urinalysis, microscopic only (12/16/2020 11:04 AM CDT) WBC, ur 0-5 0 - 5 /HPF [facility] RBC, ur 0-2 0 - 2 /HPF [facility] Epithelial cells, squamous, ur 1-5 0 - 5 /HPF [facility] Mucous, ur Present(A) [facility] Urine 12/16/2020 11:0 4 AM CDT 12/16/2020 11:33 AM CDT José Miguel Piedra MD LAB URINE ORDERABLES Final Resul t [facility] Department [place] [address] * C3 complement (12/16/2020 11:04 AM CDT) Complement C3 156.0 90.0 - 180.0 mg/dL [facility] Blood 12/16/2020 11:0 4 AM CDT 12/16/2020 11:38 AM CDT José Miguel Piedra MD LAB BLOOD ORDERABLES Final Resul t Performing Organization Address City/[facility] Co de Phone Number [facility] Department [place] [address] * C4 complement (12/16/2020 11:04 AM CDT) Complement C4 26.6 10.0 - 40.0 mg/dL [facility] Blood 12/16/2020 11:0 4 AM CDT 12/16/2020 11:38 AM CDT us José Miguel Piedra MD LAB BLOOD ORDERABLES Final Resul t Performing Organization Address City/[facility] Co de Phone Number [facility] [place] [address] * CRP (acute phase) (12/16/2020 11:04 AM CDT) CRP 7.9 <=10.0 mg/L [facility] Blood 12/16/2020 11:0 4 AM CDT 12/16/2020 11:38 AM CDT us José Miguel Piedra MD LAB BLOOD ORDERABLES Final Resul t Performing Organization Address City/[facility] Co de Phone Number [facility] [place] [address] * Erythrocyte sedimentation rate (12/16/2020 11:04 AM CDT) Erythrocyte sedimentation rate 9 1 - 20 mm/hr [facility] Blood 12/16/2020 11:0 4 AM CDT 12/16/2020 11:33 AM CDT José Miguel Piedra MD LAB BLOOD ORDERABLES Final Resul t Performing Organization Address [facility] de Phone Number [facility] Department [place] [address] * (ABNORMAL) Urinalysis reflex to microscopic (12/16/2020 11:04 AM CDT) Color, ur Marci Yellow [facility] Clarity, ur Clear Clear [facility] Specific gravity, ur 1.027(H) 1.010 - 1.025 [facility] pH, urine 5 [facility] Protein, ur ql 1+(A) Negative [facility] Glucose, ur ql Negative Negative [facility] Ketones[facility] ur Negative Negative [facility] Bilirubin, ur Negative Negative [facility] Blood, ur Negative Negative [facility] Urobilinogen, ur 4.0(A) <2.0 mg/dL [facility] Nitrite, ur Negative Negative [facility] Leukocyte esterase, ur Negative Negative [facility] UA reflex comment Reflex to microscopic UA will be performed. [facility] Urine 12/16/2020 11:0 4 AM CDT 12/16/2020 11:33 AM CDT Narrative [facility] - 12/16/2020 11:45 AM CDT ?? Urine pH is affected by diet, medications, systemic acid-base disturbances, and renal tubular function. ??pH may affect urinary stone formation. ??For example, urine pH below 6.0 may help reduce the tendency for calcium phosphate stones and pH greater than 6.0 may reduce the tendency for uric acid stone formation. Source: [facility] [employer]. Last revised 04-04-2017 us José Miguel Piedra MD LAB URINE ORDERABLES Final Resul t Performing Organization Address [facility] de Phone Number [facility] Department [place] [address] * Protein / creatinine ratio, urine, random (12/16/2020 11:04 AM CDT) Protein, ur, quant 24.2 mg/dL [facility] Comment: Interpretive Data No reference range established. Current interpretive data was last revised 2018. Creatinine Ur 308.1 mg/dL [facility] Comment: Interpretive Data No reference range established. Current interpretive data was last revised 2018. Protein/creatinin e ratio 78.5 0.0 - 180.0 mg/g CR [facility] Urine 12/16/2020 11:0 4 AM CDT 12/16/2020 11:33 AM CDT José Miguel Piedra MD LAB URINE ORDERABLES Final Resul t Performing Organization Address City/[facility] Co de Phone Number [facility] Department [place] [address] * Protein Electrophoresis, With Reflex, Serum (12/16/2020 11:04 AM CDT) Pathologist [facility] Protein, sr 6.9 6.2 - 8.2 g/dL [facility] Albumin 4.1 3.2 - 5.0 g/dL [facility] Alpha-1 globulin 0.3 0.2 - 0.4 g/dL [facility] Alpha-2 globulin 0.7 0.5 - 1.0 g/dL [facility] Beta-1 globulin 0.4 0.3 - 0.6 g/dL [facility] Beta-2 globulin 0.5 0.2 - 0.6 g/dL [facility] Gamma globulin 0.9 0.5 - 1.7 g/dL [facility] SPEP interp Please see comment [facility] Comment:No apparent monoclon al peak Blood 12/16/2020 11:0 4 AM CDT 12/16/2020 11:33 AM CDT us Joés Miguel Piedra MD LAB BLOOD ORDERABLES Final Resul t Performing Organization Address City/[facility]/ZIP Co de Phone Number 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
--- OUTSIDE RECORDS SUMMARY | 2024-03-22 20:47 | XMS_ITS | Encounter Summary ---
Author Organization [facility] Medical [facility] Address [address] [place] [address] Care Team Providers Care Cook Soup Name Role Phone No, Physician Primary Care Provider [phone] Encounter Details Date Type Department Care Team (Late st Contact Info) Description 05/21/2017 Orders Only [facility] 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 30 tablet 2 05/21/2017 12/16/2020 documented in this encounter Plan of Treatment Not on file documented as of this encounter Visit Diagnoses Not on filedocumented in this encounter Care Teams Cook Soup Relationship Specialty Start Date End Date No, Physician PCP - General 03/08/17 12/15/17 documented as of this encounter
--- OUTSIDE RECORDS SUMMARY | 2024-03-22 20:47 | XMS_ITS | Encounter Summary ---
Author Organization [facility] Address [address] [place] [address] Phone Care Team Providers Care Online Advertising Director Name Role Phone Stephan Donald MD Primary Care Provide r Encounter Details Date Type Department Care Team (Latest Contact Info) Description 12/16/2020 10:00 AM CDT Office Visit [facility] Rheumatology [address] 5th [place] [address] [place] [id number] José Miguel Piedra MD [address] [place], [place] [id number] Leukocytoclastic vasculitis (CMS/HCC) (HCC) (Primary Dx) Social History Tobacco Use Types Packs/Day Years Used Date Smoking Tobacco: Former Cigarettes Q uit: 09/17/2016 Vaping Smokeless Tobacco: Former Alcohol Use Standard Drinks/Week Comments Defer 0 (1 standard drink = 0.6 oz pur e alcohol) Sex and Gender Information Value Date Recorded Sex Assigned at Not on file 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 Gender Identity Not on file Sexual Orientation Not on file documented as of this encounter Last Filed Vital Signs Vital Sign Reading Time Taken Comments Blood Pressure 157/84 12/16/2020 9:54 AM CDT Pulse 88 12/16/2020 9:54 AM CDT Temperature 36.4 ??C (97.6 ??F) 12/16/2020 9:54 AM CD T Respiratory Rate - - Oxygen Saturation - - Inhaled Oxygen Concentration - - Weight 100.9 kg (222 lb 6.4 oz) 12/16/2020 9:54 AM CDT Height 177.8 cm (5' 10 ) 12/16/2020 9:54 AM CDT Body Mass Index 31.91 12/16/2020 9:54 AM CDT documented in this encounter Progress Notes * José Miguel Piedra MD - 12/16/2020 10:00 AM CDT [facility] Division of Rheumatology SUBJECTIVE: Chief Complaint leukocytoclastic vasculitis HPI: Mr. Recio is a 70yo male with CAD, COPD, HTN, seizure, leukocytoclastic vasculitis who presented to clinic for follow up. Patient was admitted to hospital in 08/2020 due to petechial rash over bilateral feet, abdominal pain and nonbloody diarrhea. Please see rheumatology consult note from 08/24/2020 for details. In summary, patient presented with abdominal pain, purpura skin rash involving trunk and extremities, microscopic hematuria. 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 JONNA 1:160 withspeckled pattern. dsDNA 6 (inderminate) with normal complement. Negative BRAYAN, RF and CCP. ESR and CRP elevated. Patient was seen by inpatient dermatology and renal service and concerned for IgA vasculitis given constellation of symptoms. After rheumatology evaluation, patient's symptoms are consistent with possible IgA vasculitis but age of onset and lack of IgA deposition on biopsy are not consistent. Patient was started on steroid taper with plan to monitor clinical symptoms since IgA vasculitis tends to be self-isolated. Interval History: Since discharge, patient has been doing well and reported skin rash quickly resolved within 1 week of being on prednisone. He has been off prednisone for past 2.5 months and denied symptom recurrence. He denied new skin rash, recurrent eye inflammation, oral/nasal ulcer, hematuria, melena, SOB, hemo ptysis. Endorsed mild bilateral epigastric discomfort that was entirely different from the orignialabdominal pain in 09/2020. Abdominal discomfort was mild and occurs intermittent. It was not associated with melena, nausea, vomiting and does not change with food. Reported regular bowel movements. Re ported abdominal discomfort is mild and does not affect daily activity. ROS: All systems negative PMHx: Past Medical History: Diagnosis Date ??? COPD (chronic obstructive pulmonary disease) (CMS/HCC) (HCC) ??? Headache ??? Seizures (CMS/HCC) (HCC) PSHx: Past Surgical History: Procedure Laterality Date ??? HERNIA REPAIR Social Hx: reports that he quit smoking about 4 years ago. His smoking use included vaping and cigarettes. He has quit using smokeless tobacco. Alcohol use questions deferred to the physician. Drug use questions deferred to the physician. FHx: Family History Problem Relation Age of Onset ??? No Known Problems Mother ??? No Known Problems Father MEDICATIONS: Current Outpatient Medications Medication Sig Dispense Refill ??? acetaminophen-codeine (TYLENOL with CODEINE #3) 300-30 mg per tablet acetaminophen 300 mg-codeine 30 mg tablet TAKE ONE TABLET BY MOUTH THREE TIMES A DAY NEEDED (Patient not taking: Reported on 12/13/2020) ??? aspirin (Adult Low Dose Aspirin) 81 mg enteric coated tablet Take 1 tablet (81 mg total) by mouth daily 30 tablet 11 ??? atorvastatin (LIPITOR) 20 mg tablet Take 1 tablet (20 mg total) by mouth daily 30 tablet 11 ??? carBAMazepine ER (CARBATROL) 300 [...] by mouth daily 30 tablet 11 ??? meloxicam (MOBIC) 15 mg tablet Take 1 tablet (15 mg total) by mouth daily. (Patient not taking:Reported on 12/13/2020) 30 tablet 2 ??? multivit with minerals/lutein (MULTIVITAMIN 50 PLUS ORAL) Take by mouth ??? pantoprazole DR (PROTONIX) 40 mg EC tablet Take 1 tablet (40 mg total) by mouth daily (Patient not taking: Reported on 12/13/2020) 30 tablet 0 ??? rOPINIRole (REQUIP) 0.5 mg tablet ropinirole [...] AND 5PM THEN 2 CS PO QHS No current facility-administered medications for this visit. ALLERGIES: No Known Allergies OBJECTIVE: Physical Examination: Vitals: BP 157/84 Pulse 88 Temp 36.4 ??C (97.6 ??F) Ht 177.8 cm (5' 10 ) Wt 100.9 kg (222 lb 6.4 oz) BMI 31.91 kg/m?? General: Looks well, NAD, A & Ox3. HEENT: PERRLA & EOMs intact. Throat clear without exudates. Neck: No LAD. No bruits. CVS: RRR, nl S1/S2, no R/M/G, Resp: CTAB. No rales or wheezing. Abdo: NL BS present, soft & non-tender, Ext: No edema. Neuro: Gait Normal. Skin: No rash. No ulcers. Musculoskeletal: No peripheral joint efffusion Investigations: Labs: Lab Results Component Value Date WBC 8.8 08/24/2020 HGB 13.7 08/24/2020 HCT 40.4 08/24/2020 MCV 87.6 08/24/2020 LABPLAT 372 08/24/2020 Lab Results Component Value Date AST 22 08/23/2020 ALT 35 08/23/2020 CREATININE 0.82 08/23/2020 Lab Results Component Value Date SEDRATE 31 (H) 08/19/2020 Lab Results Component Value Date CRP 47.8 (H) 08/19/2020 ASSESSMENT/PLAN: Problem List Items Addressed This Visit None Visit Diagnoses Leukocytoclastic vasculitis (CMS/HCC) (HCC) - Primary Relevant Orders C3 complement C4 complement CRP (acute phase) Erythrocyte sedimentation rate Urinalysis reflex to microscopic Protein / creatinine ratio, urine, random Protein Electrophoresis, With Reflex, Serum # leukocytoclastic vasculitis - presenting symptoms: abdominal pain with nonbloody diarrhea, purpura skin rash involving trunk and extremities, microscopic hematuria In 08/2020 - Skin biopsy showed 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 - JONNA 1:160 with speckled pattern. dsDNA 6 (inderminate) with normal complement. Negative BRAYAN, RF and CCP. ESR and CRP elevated - constellation of symptom was consistent with possible IgA vasculitis but age of onset and lack ofIgA deposition on biopsy was inconsistent. Currently low suspicion for cryoglobulinemia, ANCA vasculitis, malignancy, endocarditis - s/p predisone taper and doing well since getting off prednisone 2.5 months ago - educated patient that IgA vasculitis is a self-limited disease and does not require penitentiary immunosuppressions typically - check dsDNA, C3, C4, ESR, CRP, UA, urine protein, SPEP today - if symptom recurs, consider repeat skin biopsy. If worsening hematuria or proteinuria, consider renal evaluation and/or renal biopsy - age-appropriate cancer screening as per PCP - continue to monitor clinically - RTC 1 year Cosigned by Sander Lemons MD at 12/16/2020 11:03 AM CDT Associated attestation - Sander Lemons MD - 12/16/2020 11:03 AM CDT I have seen and examined the patient. I agree with the findings and plan of care as documented in the resident/fellow's note. My total encounter time on 12/16/2020 was 20 minutes which was spent in the activities documented in the note. This includes time spent prior to the visit and after the visitin direct care of the patient. This time does not include time spent in any separately reportable services. documented in this encounter Plan of Treatment Not on file documented as of this encounter Results * Protein Electrophoresis, With Reflex, Serum (12/16/2020 11:04 AM CDT) Pathologist [facility] Protein, sr 6.9 6.2 - 8.2 g/dL [facility] Albumin 4.1 3.2 - 5.0 g/dL [facility] Alpha-1 globulin 0.3 0.2 - 0.4 g/dL [facility] Alpha-2 globulin 0.7 0.5 - 1.0 g/dL [facility] Beta-1 globulin 0.4 0.3 - 0.6 g/dL [facility] Beta-2 globulin 0.5 0.2 - 0.6 g/dL [facility] Gamma globulin 0.9 0.5 - 1.7 g/dL [facility] SPEP interp Please see comment [facility] Comment:No apparent monoclon al peak Blood 12/16/2020 11:0 4 AM CDT 12/16/2020 11:33 AM CDT José Miguel Piedra MD LAB BLOOD ORDERABLES Final Resul t Performing Organization Address [facility] de Phone Number [facility] [place] [address] * Protein / creatinine ratio, urine, random (12/16/2020 11:04 AM CDT) Pathologist [facility] Protein, ur, quant 24.2 mg/dL [facility] Comment: Interpretive Data No reference range established. Current interpretive data was last revised 2018. Creatinine Ur 308.1 mg/dL [facility] Comment: Interpretive Data No reference range established. Current interpretive data was last revised 2018. Protein/creatinin e ratio 78.5 0.0 - 180.0 mg/g CR [facility] Urine 12/16/2020 11:0 4 AM CDT 12/16/2020 11:33 AM CDT us José Miguel Piedra MD LAB URINE ORDERABLES Final Resul t Performing Organization Address City/[facility] de Phone Number [facility] Department [place] [address] * (ABNORMAL) Urinalysis reflex to microscopic (12/16/2020 11:04 AM CDT) Color, ur Marci Yellow [facility] Clarity, ur Clear Clear [facility] Specific gravity, ur 1.027(H) 1.010 - 1.025 [facility] pH, urine 5 [facility] Protein, ur ql 1+(A) Negative [facility] Glucose, ur ql Negative Negative [facility] Ketones, ur Negative Negative [facility] Bilirubin, ur Negative Negative [facility] Blood, ur Negative Negative [facility] Urobilinogen, ur 4.0(A) <2.0 mg/dL [facility] Nitrite, ur Negative Negative [facility] Leukocyte esterase, ur Negative Negative [facility] UA reflex comment Reflex to microscopic UA will be performed. [facility] Urine 12/16/2020 11:0 4 AM CDT 12/16/2020 11:33 AM CDT Narrative [facility] - 12/16/2020 11:45 AM CDT ?? Urine pH is affected by diet, medications, systemic acid-base disturbances, and renal tubular function. ??pH may affect urinary stone formation. ??For example, urine pH below 6.0 may help reduce the tendency for calcium phosphate stones and pH greater than 6.0 may reduce the tendency for uric acid stone formation. Source: [facility]. Last revised 04-04-2017 us José Miguel Piedra MD LAB URINE ORDERABLES Final Resul t [facility] [place] [address] * Erythrocyte sedimentation rate (12/16/2020 11:04 AM CDT) Erythrocyte sedimentation rate 9 1 - 20 mm/hr [facility] Blood 12/16/2020 11:0 4 AM CDT 12/16/2020 11:33 AM CDT us José Miguel Piedra MD LAB BLOOD ORDERABLES Final Resul t Performing Organization Address City/[facility] Phone Number [facility] [place] [address] * CRP (acute phase) (12/16/2020 11:04 AM CDT) CRP 7.9 <=10.0 mg/L [facility] Blood 12/16/2020 11:0 4 AM CDT 12/16/2020 11:38 AM CDT us José Miguel Piedra MD LAB BLOOD ORDERABLES Final Resul t Performing Organization Address [facility] [place] [address] * C4 complement (12/16/2020 11:04 AM CDT) Complement C4 26.6 10.0 - 40.0 mg/dL [facility] Blood 12/16/2020 11:0 4 AM CDT 12/16/2020 11:38 AM CDT us José Miguel Piedra MD LAB BLOOD ORDERABLES Final Resul t Performing Organization Address [facility] de Phone Number [facility] [place] [address] * C3 complement (12/16/2020 11:04 AM CDT) Complement C3 156.0 90.0 - 180.0 mg/dL [facility] Blood 12/16/2020 11:0 4 AM CDT 12/16/2020 11:38 AM CDT us José Miguel Piedra MD LAB BLOOD ORDERABLES Final Resul t Performing Organization Address [facility] de Phone Number [facility] 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
--- OUTSIDE RECORDS SUMMARY | 2024-03-22 20:47 | XMS_ITS | Encounter Summary ---
Author Organization [facility] Healthcare Address [address] [place] [address] Care Team Providers Care Regional Director Of Finance Name Role Phone Stephan Donald MD Primary Care Provide r Encounter Details Date Type Department Care Team (Late st Contact Info) Description 12/20/2020 Telephone [facility] Transplant Heart [address] [facility] [phone] [place] [address] Mora Li, RN [address] [facility] [address] [place] [id number] Social History Tobacco Use Types Packs/Day Years Used Date Smoking Tobacco: Former Cigarettes Q uit: 09/17/2016 Vaping Smokeless Tobacco: Former Alcohol Use Standard Drinks/Week Comments Defer 0 (1 standard drink = 0.6 oz pur e alcohol) Sex and Gender Information Value Date Recorded Sex Assigned at Not on file 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 Na+ 143, K+ 3.9, BUN 14/creat 0.8. Spoke to , he was in background and BP 142/90. He will be with her at 12/26 EMG ROV and can get more numbers and may increase further. Also had FLP thru PCP last week and will fax us results, he was on Atorva 40 when wesaw him, we had him start 20mg. PCP increased dose to 80mg. 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
--- OUTSIDE RECORDS SUMMARY | 2024-03-22 20:47 | XMS_ITS | Encounter Summary ---
Author Organization [facility] Healthcare Address [address] [place] [address] Care Team Providers Care Occupational Nurse Name Role Phone Stephan Donald MD Primary Care Provide r Encounter Details Date Type Department Care Team (Late st Contact Info) Description 11/10/2020 Telephone [facility] Transplant Heart [address] [facility] [address] [phone] [place] [address] Mora Li, RN [address] [facility] [address] [place] [address] Social History Tobacco Use Types Packs/Day Years Used Date Smoking Tobacco: Former Cigarettes Q uit: 09/17/2016 Smokeless Tobacco: Never Alcohol Use Standard Drinks/Week Comments Defer 0 (1 standard drink = 0.6 oz pur e alcohol) Sex and Gender Information Value Date Recorded Sex Assigned at Not on file 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 López. HTN/CAD we see . 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
--- OUTSIDE RECORDS SUMMARY | 2024-03-22 20:48 | XMS_ITS | Encounter Summary ---
Author Organization [facility] Address [address] [place] [address] Care Team Providers Care Vocational Instructor Name Role Phone Annabelle Donald MD Primary Care Provider Encounter Details Date Type Department Care Team (Late st Contact Info) Description 11/19/2023 External Device Data [place] ABSTRACTION Provider, Abstract NO ADDRESS ON FILE Social History Tobacco Use Types Packs/Day Years Used Date Smoking Tobacco: Former Cigarettes 1 35 0 08/14/1980 - 08/15/2015 Smokeless Tobacco: Never Alcohol Use Standard Drinks/Week Comments Not Currently 0 (1 standard drink = 0.6 oz pur e alcohol) Sex and Gender Information Value Date Recorded Sex Assigned at Not on file Gender Identity Not on file Sexual Orientation Not on file documented as of this encounter Plan of Treatment Not on file documented as of this encounter Visit Diagnoses Not on filedocumented in this encounter Care Teams Vocational Instructor Relationship Specialty Start Date End Date Annabelle Donald MD PCP - General Internal Medicine 07/30/23 documented as of this encounter
--- OUTSIDE RECORDS SUMMARY | 2024-03-22 20:48 | XMS_ITS | Clinical Summary ---
Author Organization Unknown Care Team Providers Care Delicatessen Goods Stock Clerk Name Role Phone HEBERTSTEPHENWAGNER Negron Unavailable Unavailable MAURA PHYSICAL THERAPIST, RY Unavailable Unavailable WILLIAM AIRCRAFT STRUCTURAL REPAIRER, NÉSTOR Unabassam ailable Unavailable VANDANA REGISTERED NURSE, ISIS Unavailable Unavailable KRISTINA CFSS, OT, MUNA Unavailable Rafaela audrey REDDY OCCUPATIONAL THERAPIST, IVIS Garcia le Unavailable Payers Payer Name Policy Type Policy Number Effective Date Expira tion Date MEDICARE [place] - EPISODIC [id number] Problems Condition Name Condition Details Condition Category Status Onset Date Resolution Date Last Treatment Date Treating Clinician Comments ESSENTIAL (PRIMARY) HYPERTENSION Active 05-26 00:00: 00 ATHSCL HEART DISEASE OF [place] CORONARY ARTERY W/O ANG PCTRS Active 05-26 00:00: 00 CHRONIC OBSTRUCTIVE PULMONARY DISEASE, UNSPECIFIED Active 05-26 00:00: 00 HYPERLIPIDEM IA, UNSPECIFIED Active 05-26 00:00: 00 EPILEPSY, UNSP, NOT INTRACTABLE, WITHOUT STATUS EPILEPTICUS Active 05-26 00:00: 00 OTHER CHRONIC PAIN Active 05-26 00:00: 00 UNSPECIFIED OSTEOARTHRIT IS, UNSPECIFIED SITE Active 05-26 00:00: 00 PATTERNMAKER HAND (CURRENT) USE OF ANTITHROMBOT ICS/ANTIPLAT ELETS Active 05-26 00:00: 00 SENIOR CARE (CURRENT) USE OF INHALED STEROIDS Active 05-26 00:00: 00 PRSNL HX OF TIA (TIA), 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 Ordering Clinician Indication Dosage Frequency Signature (SIG) Comments Components albuterol sulfate HFA 90 mcg/actuati on aerosol inhaler 05-26 00:00: 00 Yes [id number] COPD 1 puff NEEDED 1 puff NEEDED (route: inhalation ) Med Classific ation: Respirato ry Therapy Agents aspirin 81 mg tablet,fabienne yed release 05-26 00:00: 00 Yes [id number] HYPERTENSIO N 1 tablet DAILY 1 tablet DAILY (route: oral) Med Classific ation: Hematolog ical Agents atorvastati n 40 mg tablet 05-26 00:00: 00 Yes [id number] HYPERLIPIDE EKATERINA 2 tablet DAILY 2 tablet DAILY (route: oral) Med Classific ation: Cardiovas cular Therapy Agents carbamazepi ne ER 300 mg capsule,ext ended release [id number] 05-26 00:00: 00 Yes [id number] SEIZURES 2 capsule 2 TIMES DAILY 2 capsule 2 TIMES DAILY (route: oral) Med Classific ation: Central Nervous System Agents clopidogrel 75 mg tablet 05-26 00:00: 00 Yes [id number] HYPERTENSIO N 1 tablet DAILY 1 tablet DAILY (route: oral) Med Classific ation: Hematolog ical Agents fluticasone propionate 50 mcg/actuati on nasal spray,suspe nsion 05-26 00:00: 00 Yes [id number] ALLERGIES 1 spray DAILY 1 spray DAILY (route: nasal) Med Classific ation: Respirato ry Therapy Agents hydrochloro thiazide 25 mg tablet 05-26 00:00: 00 Yes [id number] HYPERTENSIO N 1 tablet DAILY 1 tablet DAILY (route: oral) Med Classific ation: Cardiovas cular Therapy Agents loratadine 10 mg tablet 05-26 00:00: 00 Yes [id number] ALLERGIES 1 tablet DAILY 1 tablet DAILY (route: oral) Med Classific ation: Respirato ry Therapy Agents lorazepam 0.5 mg tablet 05-26 00:00: 00 Yes [id number] ANXIETY 1 tablet NEEDED 1 tablet NEEDED (route: oral) Med Classific ation: Central Nervous System Agents losartan 50 mg tablet 05-26 00:00: 00 Yes [id number] HYPERTENSIO N 1 tablet DAILY 1 tablet DAILY (route: oral) Med Classific ation: Cardiovas cular Therapy Agents multivitami n tablet 05-26 00:00: 00 Yes [id number] SUPPLEMENT 1 tablet DAILY 1 tablet DAILY (route: oral) Med Classific ation: Electroly te Balance-N utritiona l Products pantoprazol e 40 mg tablet,fabienne yed release 05-26 00:00: 00 Yes [id number] GERD 1 tablet DAILY 1 tablet DAILY (route: oral) Med Classific ation: Gastroint estinal Therapy Agents ropinirole 0.5 mg tablet 05-26 00:00: 00 Yes [id number] RESTLESS LEGS 1 tablet BEDTIME 1 tablet BEDTIME (route: oral) Med Classific ation: Central Nervous System Agents sertraline 50 mg tablet 05-26 00:00: 00 Yes [id number] DEPRESSION 1 tablet DAILY 1 tablet DAILY (route: oral) Med Classific ation: Central Nervous System Agents Spiriva Respimat 2.5 mcg/actuati on solution for inhalation 05-26 00:00: 00 Yes [id number] COPD 1 puff DAILY 1 puff DAILY (route: inhalation ) Med Classific ation: Respirato ry Therapy Agents valproic acid 250 mg capsule 05-26 00:00: 00 Yes [id number] SEIZURES 2 capsule 3 TIMES DAILY 2 capsule 3 TIMES DAILY (route: oral) Med Classific ation: Central Nervous System Agents Immunizations Ordered Immunization Name Filled Immunization Name Date Status Comments Refusal Reason INFLUENZA, TIV (INACTIVATED) 2021-01-03 00:00:00 COVID-19 DOSE 2, MRNA 2020-06-15 00:00:00 COVID-19 MONOVALENT, MRNA 2020-05-18 00:00:00 PNEUMOCOCCAL (PPV), PPV 2020-01-05 00:00:00 Vital Signs Vital Name Observation Time Observation Value Commen ts Temperature 2021-07-07 09:54:30.000 97.9 [degF] Temperature 2021-06-30 10:24:08.000 98 [degF] Temperature 2021-06-16 14:09:15.000 98.3 [degF] Temperature 2021-06-09 10:27:07.000 98.1 [degF] Temperature 2021-06-08 15:32:44.000 98.6 [degF] Temperature 2021-06-02 11:36:46.000 98.3 [degF] Temperature 2021-06-01 09:50:13.000 98 [degF] Temperature 2021-05-30 15:24:16.000 98.3 [degF] Temperature 2021-05-29 09:50:30.000 97.7 [degF] Temperature 2021-05-26 12:22:33.000 98.4 [degF] Height 2021-05-26 12:24:14.000 70 [in_us] Pulse 2021-07-07 09:54:37.000 66 /min Pulse 2021-06-30 10:24:18.000 88 /min Pulse 2021-06-16 14:10:01.000 86 /min Pulse 2021-06-09 10:27:16.000 78 /min Pulse 2021-06-08 15:32:54.000 80 /min Pulse 2021-06-02 11:36:52.000 66 /min Pulse 2021-06-01 09:50:24.000 72 /min Pulse 2021-05-30 15:24:24.000 72 /min Pulse 2021-05-29 09:50:59.000 73 /min Pulse 2021-05-26 12:22:40.000 66 /min O2 Saturation (%) 2021-07-07 09:54:45.000 94 % O2 Saturation (%) 2021-06-30 10:24:33.000 93 % O2 Saturation (%) 2021-06-16 14:10:14.000 95 % O2 Saturation (%) 2021-06-09 10:27:37.000 96 % O2 Saturation (%) 2021-06-08 15:33:45.000 96 % O2 Saturation (%) 2021-06-02 11:37:02.000 93 % O2 Saturation (%) 2021-06-01 09:50:51.000 92 % O2 Saturation (%) 2021-05-30 15:24:50.000 97 % O2 Saturation (%) 2021-05-29 09:51:53.000 92 % O2 Saturation (%) 2021-05-26 12:23:27.000 94 % Respirations 2021-07-07 09:53:45.000 18 /min Respirations 2021-06-30 10:23:08.000 18 /min Respirations 2021-06-16 14:10:41.000 20 /min Respirations 2021-06-09 10:27:24.000 18 /min Respirations 2021-06-08 15:33:02.000 18 /min Respirations 2021-06-02 11:35:03.000 18 /min Respirations 2021-06-01 09:50:33.000 20 /min Respirations 2021-05-30 15:24:31.000 20 /min Respirations 2021-05-29 09:51:12.000 20 /min Respirations 2021-05-26 12:22:49.000 20 /min Weight (lbs) 2021-05-26 12:24:05.000 225 [lb_av] Systolic Blood Pressure 2021-07-07 09:56:56.000 144 mm [Hg] Systolic Blood Pressure 2021-06-30 10:27:09.000 126 mm [Hg] Systolic Blood Pressure 2021-06-16 14:11:55.000 132 mm [Hg] Systolic Blood Pressure 2021-06-09 10:36:18.000 138 mm [Hg] Systolic Blood Pressure 2021-06-08 15:49:34.000 138 mm [Hg] Systolic Blood Pressure 2021-06-02 11:38:42.000 156 mm [Hg] Systolic Blood Pressure 2021-06-01 09:47:31.000 138 mm [Hg] Systolic Blood Pressure 2021-05-30 15:24:40.000 164 mm [Hg] Systolic Blood Pressure 2021-05-29 09:51:27.000 140 mm [Hg] Systolic Blood Pressure 2021-05-26 12:23:07.000 158 mm [Hg] Diastolic Blood Pressure 2021-07-07 09:56:56.000 82 mm [Hg] Diastolic Blood Pressure 2021-06-30 10:27:09.000 78 mm [Hg] Diastolic Blood Pressure 2021-06-16 14:11:55.000 75 mm [Hg] Diastolic Blood Pressure 2021-06-09 10:36:18.000 82 mm [Hg] Diastolic Blood Pressure 2021-06-08 15:49:34.000 88 mm [Hg] Diastolic Blood Pressure 2021-06-02 11:38:42.000 90 mm [Hg] Diastolic Blood Pressure 2021-06-01 09:47:31.000 80 mm [Hg] Diastolic Blood Pressure 2021-05-30 15:24:40.000 90 mm [Hg] Diastolic Blood Pressure 2021-05-29 09:51:27.000 70 mm [Hg] Diastolic Blood Pressure 2021-05-26 12:23:07.000 94 mm [Hg] Plan of Treatment Planned Activity Planned Date Details Comments Future Scheduled Test IN RESPONS E TO STAY AT HOME EMERGENCY DECLARATION, THE PATIENT IS HOMEBOUND BECAUSE LEAVING THE HOUSE WOULD PUT THE PATIENT AT UNACCEPTABLY HIGH RISK OF ACQUIRING AN INFECTIOUS DISEASE SUCH COVID-19, OR THE PATIENTS MEDICAL CONDITION WOULD FURTHER EXACERBATE LEADING TO COMPLICATIONS. THE CERTIFYING PHYSICIAN, ASSOCIATED PHYSICIAN, NPP OR PA WITHIN THE SAME GROUP MAY APPROVE AND SIGN THE ORDER (ON ANY PAGE) ATTESTING THAT THE COMPREHENSIVE OUTCOME ASSESSMENTS, EVALUATIONS, AND HOME HEALTH CERTIFICATION PLANS SUPPORT HOMEBOUND STATUS. HOME HEALTH WEB-PORTAL DOCUMENTATION ACCESSED BY THE PHYSICIAN MUST BE INCORPORATED INTO THE MEDICAL RECORD TO CORROBORATE THE PHYSICIAN, NPP, OR PAS F2F ENCOUNTER TO SUPPORT ELIGIBILITY FOR HOME HEALTH SERVICES. [code = IN RESPONSE TO STAY AT HOME EMERGENCY DECLARATION, THE PATIENT IS HOMEBOUND BECAUSE LEAVING THE HOUSE WOULD PUT THE PATIENT AT UNACCEPTABLY HIGH RISK OF ACQUIRING AN INFECTIOUS DISEASE SUCH COVID-19, OR THE PATIENTS MEDICAL CONDITION WOULD FURTHER EXACERBATE LEADING TO COMPLICATIONS. THE CERTIFYING PHYSICIAN, ASSOCIATED PHYSICIAN, NPP OR PA WITHIN THE SAME GROUP MAY APPROVE AND SIGN THE ORDER (ON ANY PAGE) ATTESTING THAT THE COMPREHENSIVE OUTCOME ASSESSMENTS, EVALUATIONS, AND HOME HEALTH CERTIFICATION PLANS SUPPORT HOMEBOUND STATUS. HOME HEALTH WEB-PORTAL DOCUMENTATION ACCESSED BY THE PHYSICIAN MUST BE INCORPORATED INTO THE MEDICAL RECORD TO CORROBORATE THE PHYSICIAN, NPP, OR PAS F2F ENCOUNTER TO SUPPORT ELIGIBILITY FOR HOME HEALTH SERVICES.] Future Scheduled Test EACH ORDER ED IN-HOME OR TELEHEALTH VISIT, THE SKILLED NURSE WILL CONDUCT A COMPREHENSIVE ASSESSMENT INCLUDING VITAL SIGNS, PAIN, SAFETY, MENTAL/COGNITIVE/PSYCHOSOCIAL STATUS, MED MANAGEMENT, NUTRITION, SKIN INTEGRITY, PRESSURE ULCER PREVENTION, AND PATIENT/CAREGIVER ABILITY TO SUPPORT ORDERED CARE. SKILLED NURSE WILL INSTRUCT ON DISEASE PROCESS, MED MGMT., FALL PREVENTION AND SAFETY, INFECTION CONTROL AND PREVENTION, WARNING SIGNS, ADDRESS RESULTS OUTSIDE OF ORDERED PARAMETERS LISTED ON CARE PLAN, AND COORDINATE DISCHARGE WITH THE TREATING PROVIDER. MAY ACCEPT ORDERS FROM THE FOLLOWING PROVIDER(S) WHO WILL BE CONSULTING ON THE CERTIFIED CARE PLAN: Stevie SULLIVAN, DR EDWARD, DR ODONNELL, DR DILLON [code = EACH ORDERED IN-HOME OR TELEHEALTH VISIT, THE SKILLED NURSE WILL CONDUCT A COMPREHENSIVE ASSESSMENT INCLUDING VITAL SIGNS, PAIN, SAFETY, MENTAL/COGNITIVE/PSYCHOSOCIAL STATUS, MED MANAGEMENT, NUTRITION, SKIN INTEGRITY, PRESSURE ULCER PREVENTION, AND PATIENT/CAREGIVER ABILITY TO SUPPORT ORDERED CARE. SKILLED NURSE WILL INSTRUCT ON DISEASE PROCESS, MED MGMT., FALL PREVENTION AND SAFETY, INFECTION CONTROL AND PREVENTION, WARNING SIGNS, ADDRESS RESULTS OUTSIDE OF ORDERED PARAMETERS LISTED ON CARE PLAN, AND COORDINATE DISCHARGE WITH THE TREATING PROVIDER. MAY ACCEPT ORDERS FROM THE FOLLOWING PROVIDER(S) WHO WILL BE CONSULTING ON THE CERTIFIED CARE PLAN: DR WAGNER MURPHY, DR ODONNELL, DR DILLON] Future Scheduled Test SKILLED NU RSE TO INSTRUCT PATIENT/CAREGIVER ON WHAT IS HYPERTENSION, HOW TO CHECK HIS/HER BLOOD PRESSURE, AND STRATEGIES TO USE TO CONTROL BLOOD PRESSURE SUCH MONITORING BP, MONITORING WEIGHTS, ENGAGING IN PHYSICAL ACTIVITY AIMING FOR 150 MINUTES SPREAD THROUGHOUT THE WEEK. [code = SKILLED NURSE TO INSTRUCT PATIENT/CAREGIVER ON WHAT IS HYPERTENSION, HOW TO CHECK HIS/HER BLOOD PRESSURE, AND STRATEGIES TO USE TO CONTROL BLOOD PRESSURE SUCH MONITORING BP, MONITORING WEIGHTS, ENGAGING IN PHYSICAL ACTIVITY AIMING FOR 150 MINUTES SPREAD THROUGHOUT THE WEEK.] Future Scheduled Test HOME HEALT H NURSE WILL INSTRUCT ABOUT COPD, APPROPRIATE BREATHING TECHNIQUES, STRATEGIES TO MANAGE COPD TO PREVENT EXACERBATIONS, STRATEGIES TO PROMOTE SLEEP, USE OF A COPD ACTION PLAN, AND WARNING SIGNS TO CALL THE AGENCY, TREATING PROVIDER, OR 911. [code = HOME HEALTH NURSE WILL INSTRUCT ABOUT COPD, APPROPRIATE BREATHING TECHNIQUES, STRATEGIES TO MANAGE COPD TO PREVENT EXACERBATIONS, STRATEGIES TO PROMOTE SLEEP, USE OF A COPD ACTION PLAN, AND WARNING SIGNS TO CALL THE AGENCY, TREATING PROVIDER, OR 911.] Future Scheduled Test OCCUPATION AL THERAPY TO EVALUATE, ESTABLISH PLAN OF CARE, AND TREAT FOR PATIENT DEFICITS RELATED TO PRIMARY DIAGNOSIS FOR HOME CARE EPISODE. ASSESS CO-MORBID CONDITIONS THAT PRESENT THEMSELVES DURING THE PLAN OF CARE AND PROVIDE INTERVENTIONS TO MINIMIZE POTENTIAL COMPLICATIONS AND RISK OF HOSPITALIZATION. INSTRUCT PATIENT ON MANAGEMENT OF MEDICATIONS, AND PAIN MANAGEMENT. PROVIDE EXERCISES DESIGNED TO RESTORE FUNCTIONAL RANGE OF MOTION, STRENGTH, NEUROMUSCULAR AND SENSORIMOTOR FUNCTION, AND TO INSTRUCT/UPGRADE IN THERAPEUTIC HOME EXERCISE/ACTIVITY PROGRAM. OCCUPATIONAL THERAPY TO PROVIDE CLIENT WITH ACTIVITIES OF DAILY LIVING AND INSTRUMENTAL ACTIVITIES OF DAILY LIVING TRAINING FOCUSING ON SELF CARE TASKS SUCH DRESSING, GROOMING, TOILETING, BATHING/SHOWERING. INSTRUMENTAL ACTIVITIES OF DAILY LIVING TASKS INCLUDE LAUNDRY, MEAL PREP, LIGHT HOUSE KEEPING, AND COMMUNITY RE-ENTRY SAFETY USING PROPER ADAPTIVE EQUIPMENT. OT TO INSTRUCT IN PURSED LIP BREATHING, PROXIMAL PLACEMENT TECHNIQUES, ENVIRONMENTAL MODIFICATIONS, WORK SIMPLIFICATION, BODY MECHANICS TO CONSERVE ENERGY AND DEMONSTRATE INCREASED PARTICIPATION IN DYNAMIC STANDING TASK FROM 2 TO 10 MINUTES. [code = OCCUPATIONAL THERAPY TO EVALUATE, ESTABLISH PLAN OF CARE, AND TREAT FOR PATIENT DEFICITS RELATED TO PRIMARY DIAGNOSIS FOR HOME CARE EPISODE. ASSESS CO-MORBID CONDITIONS THAT PRESENT THEMSELVES DURING THE PLAN OF CARE AND PROVIDE INTERVENTIONS TO MINIMIZE POTENTIAL COMPLICATIONS AND RISK OF HOSPITALIZATION. INSTRUCT PATIENT ON MANAGEMENT OF MEDICATIONS, AND PAIN MANAGEMENT. PROVIDE EXERCISES DESIGNED TO RESTORE FUNCTIONAL RANGE OF MOTION, STRENGTH, NEUROMUSCULAR AND SENSORIMOTOR FUNCTION, AND TO INSTRUCT/UPGRADE IN THERAPEUTIC HOME EXERCISE/ACTIVITY PROGRAM. OCCUPATIONAL THERAPY TO PROVIDE CLIENT WITH ACTIVITIES OF DAILY LIVING AND INSTRUMENTAL ACTIVITIES OF DAILY LIVING TRAINING FOCUSING ON SELF CARE TASKS SUCH DRESSING, GROOMING, TOILETING, BATHING/SHOWERING. INSTRUMENTAL ACTIVITIES OF DAILY LIVING TASKS INCLUDE LAUNDRY, MEAL PREP, LIGHT HOUSE KEEPING, AND COMMUNITY RE-ENTRY SAFETY USING PROPER ADAPTIVE EQUIPMENT. OT TO INSTRUCT IN PURSED LIP BREATHING, PROXIMAL PLACEMENT TECHNIQUES, ENVIRONMENTAL MODIFICATIONS, WORK SIMPLIFICATION, BODY MECHANICS TO CONSERVE ENERGY AND DEMONSTRATE INCREASED PARTICIPATION IN DYNAMIC STANDING TASK FROM 2 TO 10 MINUTES.] Future Scheduled Test PHYSICAL T HERAPY EVALUATION PERFORMED. NO ADDITIONAL VISITS REQUIRED. [code = PHYSICAL THERAPY EVALUATION PERFORMED. NO ADDITIONAL VISITS REQUIRED.] Goal 2021-07-07 Patient Goal - KEEP BLOOD PRESSURE IN NORMAL LIMITS Goal Provider Goal - A PLAN OF CARE WILL BE ESTABLISHED THAT MEETS ALL PATIENT'S CUSTODIAL NEEDS AND COUNTER SIGNED BY PHYSICIAN. Goal Provider Goal - PATIENT WILL BE FREE OF FALLS AND HOSPITALIZATIONS THROUGHOUT EPISODE OF CARE. PATIENT/CAREGIVER WILL UNDERSTAND AND ADHERE TO ORDERED DIET. PATIENT/CAREGIVER WILL INDEPENDENTLY MANAGE MEDICATIONS, UNDERSTAND ANY CHANGES, SIDE EFFECTS TO REPORT BY END OF EPISODE. PATIENT WILL BE FREE OF INFECTION AND UNDERSTAND MEASURES OF PREVENTION. PATIENT/CAREGIVER WILL COLLABORATE WITH SKILLED NURSE TO DEVELOP POC AT SOC AND ON AN ONGOING BASIS UPDATES ARE NEEDED. UNDERSTAND PROGRESS MADE/DISCHARGE PLANNING. ADDITIONAL ORDERS WILL BE RECEIVED FROM ALTERNATE PHYSICIANS IN A TIMELY MANNER. Goal Provider Goal - PATIENT/CAREGIVER WILL INDEPENDENTLY DEMONSTRATE HOW TO CHECK HIS/HER OWN BP AND VERBALIZE WHAT STRATEGIES CAN ASSIST TO CONTROL BLOOD PRESSURE. Goal Provider Goal - PATIENT/CAREGIVER WILL DEMONSTRATE WILLINGNESS TO COLLABORATE AND CREATE A COPD ACTION PLAN, VERBALIZE UNDERSTANDING OF STRATEGIES TO PREVENT EXACERBATIONS, AND VERBALIZE WARNING SIGNS AND WHEN TO CONTACT THE TREATING PROVIDER OR 911 UPON THE END OF HOME HEALTH SERVICES. Goal Provider Goal - OCCUPATIONAL THERAPY EVALUATION WILL BE COMPLETED, AND A PLAN OF CARE WILL BE DEVELOPED FOR THE TREATMENT OF PATIENT DEFICITS RELATED TO PRIMARY DIAGNOSIS FOR HOME CARE EPISODE. PATIENT TO VERBALIZE AND DEMONSTRATE UNDERSTANDING OF ASSOCIATED DISEASE PROCESSES AND THEIR INFLUENCE ON FUNCTION IN THE HOME ENVIRONMENT AND MINIMIZE RISK OF HOSPITALIZATION. PATIENT WILL RETURN DEMONSTRATE ACCURATE EXECUTION OF ESTABLISHED HOME EXERCISE PROGRAM. PATIENT WILL DEMONSTRATE SAFE PARTICIPATION IN SIGNIFICANT ACTIVITIES OF DAILY LIVING AND INSTRUMENTAL ACTIVITIES OF DAILY LIVING EVIDENCED BY COMPLETION OF UPPER/LOWER BODY DRESSING, BATHING, TOILETING, GROOMING, HOUSEHOLD CLEANING, LAUNDRY, SENIOR INDUSTRIAL ENGINEER LOAD/UNLOAD, DISHES, MEAL PREPARATION, MAIL RETREIVAL, TRASH COLLECTION, AND COMMUNITY RE-ENTRY TASKS WITH INDEPENDENT/MODIFIED INDEPENDENT. PATIENT WILL BE ABLE TO DEMONSTRATE CONSISTENT APPLICATION OF ENERGY CONSERVATION TECHNIQUES INSTRUCTED THAT IMPROVE FUNCTIONAL MOBILITY PERFORMANCE. Goal Provider Goal - NONE Reason for Visit INDEPENDENT IN THE COMMUNITY Encounters Start Date/Time End Date/Time Encounter Type Admission Type Attending [facility] Care Department Encounter ID Discharge Date Discharge Status Discharge Condition Discharge Reason Percent Goals Met 2021-05-26 00:00:00 2021-07-07 00:00:00 Outpatient NEW ADMISSION [facility] [id number] 00:00:00 DISCHARGE TO HOME OR SELF CARE INDEPENDEN T IN THE COMMUNITY GOALS MET 100.00
--- OUTSIDE RECORDS SUMMARY | 2024-03-22 20:48 | XMS_ITS | Encounter Summary ---
Author Organization [facility] Address [address] [place] [address] Care Team Providers Care Secondary Art Teacher Name Role Phone Annabelle Donald MD Primary Care Provider Encounter Details Date Type Department Care Team (Late st Contact Info) Description 11/26/2023 External Device Data [facility] ABSTRACTION Provider, Abstract [...] on filedocumented in this encounter Care Teams Secondary Art Teacher Relationship Specialty Start Date End Date Annabelle Donald MD PCP - General Internal Medicine 07/30/23 documented as of this encounter
--- OUTSIDE RECORDS SUMMARY | 2024-03-22 20:48 | XMS_ITS | Encounter Summary ---
Author Organization [facility] Address [address] [place] [address] Care Team Providers Care Photography Colorist Name Role Phone Annabelle Donald MD Primary Care Provider Encounter Details Date Type Department Care Team (Late st Contact Info) Description 11/20/2023 External Device Data [facility] ABSTRACTION Provider, Abstract [...] on filedocumented in this encounter Care Teams Photography Colorist Relationship Specialty Start Date End Date Annabelle Donald MD PCP - General Internal Medicine 07/30/23 documented as of this encounter
--- OUTSIDE RECORDS SUMMARY | 2024-03-22 20:48 | XMS_ITS | Encounter Summary ---
Author Organization [facility] Address [address] [place] [address] Care Team Providers Care Cordwainer Name Role Phone Annabelle Donald MD Primary Care Provider Encounter Details Date Type Department Care Team (Late st Contact Info) Description 12/24/2023 External Device Data [facility] ABSTRACTION Provider, Abstract [...] on filedocumented in this encounter Care Teams Cordwainer Relationship Specialty Start Date End Date Annabelle Donald MD PCP - General Internal Medicine 07/30/23 documented as of this encounter
--- OUTSIDE RECORDS SUMMARY | 2024-03-22 20:48 | XMS_ITS | Encounter Summary ---
Author Organization [facility] Address [address] [place] [address] Care Team Providers Care Bulk Sugar Handler Name Role Phone Annabelle Donald MD Primary Care Provider Encounter Details Date Type Department Care Team (Late st Contact Info) Description 12/03/2023 External Device Data [facility] ABSTRACTION Provider, Abstract [...] on filedocumented in this encounter Care Teams Bulk Sugar Handler Relationship Specialty Start Date End Date Annabelle Donald MD PCP - General Internal Medicine 07/30/23 documented as of this encounter
--- OUTSIDE RECORDS SUMMARY | 2024-03-22 20:48 | XMS_ITS | Clinical Summary ---
Author Organization [facility] Johana Gambino Address [address] [place] [address] Care Team Providers Care Nurse Companion Name Role Phone Annabelle Donald MD Primary Care Provider Allergies No known active allergies Medications Medication Sig Dispensed Refills Start Date End Date Status atorvastatin (LIPITOR) 40 mg tablet Take 80 mg by mouth daily. 05/26/2021 Active losartan (COZAAR) 50 mg tablet Take 1 Tablet by mouth daily. 06/20/2023 Active sertraline (ZOLOFT) 50 mg tablet Take 50 mg by mouth daily. 06/20/2023 Active loratadine (CLARITIN) 10 mg tablet Take 10 mg by mouth daily. Active aspirin (ECOTRIN EC) 81 mg Tablet, Delayed Release (E.C.) Take 81 mg by mouth daily. Active Active Problems No known active problems Encounters Date Type Department Care Team Description 12/24/2023 External Device Data [facility] ABSTRACTION Provider, Abstract from Last 3 Months Family History Medical History Relation Name Comments Diabetes Brother 3 Diabetes Child Lung Cancer Father Diabetes Mother Relation Name Status Comments Brother 1 Brother 2 Brother 3 Alive Child Alive Father Mother Sister Social History Tobacco Use Types Packs/Day Years Used Date Smoking Tobacco: Former Cigarettes 1 35 0 08/14/1980 - 08/15/2015 Smokeless Tobacco: Never Tobacco Cessation:Counseling Given: Not Answered Alcohol Use Standard Drinks/Week Comments Not Currently 0 (1 standard drink = 0.6 oz pur e alcohol) Sex and Gender Information Value Date Recorded Sex Assigned at Not on file Gender Identity Not on file Sexual Orientation Not on file Last Filed Vital Signs Vital Sign Reading Time Taken Comments Blood Pressure 125/81 08/15/2023 1:16 PM CDT Pulse 81 08/15/2023 1:16 PM CDT Temperature 36.3 ??C (97.4 ??F) 08/15/2023 1:16 PM CD T Respiratory Rate 15 08/15/2023 1:16 PM CDT Oxygen Saturation 94% 08/15/2023 1:16 PM CDT Inhaled Oxygen Concentration - - Weight 92.9 kg (204 lb 12.8 oz) 08/15/2023 1:16 PM CDT Height 177.8 cm (5' 10 ) 08/15/2023 1:16 PM CDT Body Mass Index 29.39 08/15/2023 1:16 PM CDT Plan of Treatment Health Maintenance Due Date Last Done Comments COLORECTAL SCREENING 01/12/1997 Colorectal Cancer Screening 01/12/1997 FIT-DNA Q 3 years 01/12/1997 FIT/FOBT Q 1 year 01/12/1997 Flex Sig/CT Colonography Q 5 years 01/12/1997 ZOSTER VACCINE (1 of 2) 01/12/2002 Abdominal Aortic Aneurysm (AAA) Screening 01/12/2017 PNEUMOCOCCAL VACCINE 65+ YEARS (2 of 2 - PCV) 02/05/20 18 02/04/2017 INFLUENZA VACCINE (#1) 2023 RSV VACCINE (60+ or ) (1 - 1-dose 75+ series) 01/12/2027 DTAP/TDAP/TD VACCINES (2 - Td or Tdap) 02/04/2027 Care Teams Nurse Companion Relationship Specialty Start Date End Date Annabelle Donald MD PCP - General Internal Medicine 07/30/23
--- OUTSIDE RECORDS SUMMARY | 2024-03-22 20:48 | XMS_ITS | Encounter Summary ---
Author Organization [facility] Address [address] [place] [address] Care Team Providers Care Supervisor Boarding Name Role Phone Annabelle Donald MD Primary [...] on filedocumented in this encounter Care Teams Supervisor Boarding Relationship Specialty Start Date End Date Annabelle Donald MD PCP - General Internal Medicine 07/30/23 documented as of this encounter
--- OUTSIDE RECORDS SUMMARY | 2024-03-22 20:49 | XMS_ITS | Encounter Summary ---
Author Organization [facility] [employer] [facility] Address [address] [place] [address] Care Team Providers Care Core Composer Feeder Name Role Phone Annabelle Donald MD Primary Care Provider Encounter Details Date Type Department Care Team (Late st Contact Info) Description 08/15/2023 Abstract [facility] Oncology and Hematology - Mauricio [address] [email or web address] [address] [place] [address] Maco Calero MD [address] [facility] [address] [place] [address] Social History Tobacco Use Types Packs/Day Years [...] on filedocumented in this encounter Care Teams Core Composer Feeder Relationship Specialty Start Date End Date Annabelle Donald MD PCP - General Internal Medicine 07/30/23 documented as of this encounter
--- OUTSIDE RECORDS SUMMARY | 2024-03-22 20:49 | XMS_ITS | Encounter Summary ---
Author Organization [facility] Address [address] [place] [address] Care Team Providers Care Residential Service Technician Name Role Phone Annabelle Donald MD Primary Care Provider Encounter Details Date Type Department Care Team (Late st Contact Info) Description 10/15/2023 External Device Data STL ABSTRACTION Provider, Abstract [...] on filedocumented in this encounter Care Teams Residential Service Technician Relationship Specialty Start Date End Date Annabelle Donald MD PCP - General Internal Medicine 07/30/23 documented as of this encounter
--- OUTSIDE RECORDS SUMMARY | 2024-03-22 20:49 | XMS_ITS | Encounter Summary ---
Author Organization [facility] [employer] [facility] Address [address] [place] [address] Care Team Providers Care Laser Beam Cutter Name Role Phone Annabelle Donald MD Primary Care Provider Reason for Visit * Reason Comments Establish Care Encounter Details Date Type Department Care Team (Latest Contact Info) Description 08/15/2023 1:30 PM CDT Office Visit [facility] Oncology and Hematology - Mauricio [address] [facility] [address] [place] [address] Nancy Sebastian FNP [address] [facility] [address] [place] [address] Secondary erythrocytosis (Primary Dx) Social History Tobacco Use Types [...] Mass Index 29.39 08/15/2023 1:16 PM CDT documented in this encounter Progress Notes * Nancy Sebastian, TRUNG - 08/15/2023 1:42 PM CDT Hematology / Oncology Consult Note Requesting Physician: Annabelle Donald MD Primary Care Physician: Annabelle Donald MD Problem List There is no problem list on file for this patient. Previous Treatment ? Measurable Disease ? Reason for Visit: Humza Recio is a 73 y.o. male who was referred for consultation for elevated erythrocytosis History of Present Illness: Humza Recio is a 73 y.o. male with a past medical history of RLS, GERD, ANGLE, HTN, HLD, COPD, seizures, and diet controlled DM consulted for elevated erythrocytosis. He reports this is a new finding. He is a former smoker and quit in 2015. She does have COPD and ANGLE and does not use a CPAP. He denies any hormone use. He reports sedentary lifestyle and drinks coffee and diet soda daily. Is not onDM medication. He reports a family history of lung cancer. Denies any fatigue, SOB, chest pain. Colonoscopy: 2020 Lung: Need Past Medical History Past Medical History: Diagnosis Date Depression Diabetes mellitus Emphysema of lung Hyperlipidemia Hypertension Seizure disorder Stroke Surgical History Past Surgical History: Procedure Laterality Date HX HERNIA REPAIR HX WRIST SURGERY Wrist Fracture repair 2023 Medications Current Outpatient Medications Medication Sig Dispense Refill atorvastatin (LIPITOR) 40 mg tablet Take 80 mg by mouth daily. losartan (COZAAR) 50 mg tablet Take 1 Tablet by mouth daily. sertraline (ZOLOFT) 50 mg tablet Take 50 mg by mouth daily. loratadine (CLARITIN) 10 mg tablet Take 10 mg by mouth daily. aspirin (ECOTRIN EC) 81 mg Tablet, Delayed Release (E.C.) Take 81 mg by mouth daily. No current facility-administered medications for this visit. Allergies No Known Allergies Immunizations: There is no immunization history on file for this patient. Family History: Family History Problem Relation Name Age of Onset Lung Cancer Father Diabetes Mother Diabetes Brother Diabetes Child Social History: He is retired. . Former tobacco users. Drinks etoh occasionally. Has 1 child. Social History Tobacco Use Smoking status: Former Current packs/day: 0.00 Average packs/day: 1 pack/day for 35.0 years (35.0 ttl pk-yrs) Types: Cigarettes Start date: 08/14/1980 Quit date: 08/15/2015 Years since quittin.0 Smokeless tobacco: Never Substance Use Topics Alcohol use: Not Currently Tobacco Counseling: He is not a tobacco/nicotine user. Review of Systems All systems reviewed & are unremarkable except as noted in HPI and above Physical Exam Vitals reviewed. Constitutional: General: He is awake. Appearance: Normal appearance. He is normal weight. HENT: Head: Normocephalic and atraumatic. Mouth/Throat: Mouth: Mucous membranes are moist. Pharynx: Oropharynx is clear. Eyes: Pupils: Pupils are equal, round, and reactive to light. Cardiovascular: Rate and Rhythm: Normal rate and regular rhythm. Pulses: Normal pulses. Heart sounds: Normal heart sounds. Pulmonary: Effort: Pulmonary effort is normal. Breath sounds: Normal breath sounds. Abdominal: General: Abdomen is flat. Bowel sounds are normal. Palpations: Abdomen is soft. There is no hepatomegaly or splenomegaly. Musculoskeletal: General: Normal range of motion. Cervical back: Normal range of motion. Skin: General: Skin is warm and dry. Neurological: General: No focal deficit present. Mental Status: He is alert and oriented to person, place, and time. ? Labs: No results found for this or any previous visit (from the past 24 hour(s)). Pathology ? Imaging & Other Studies Performance Status? Assessment / Plan: Secondary Erythrocytosis Patient is a former smoker and a history of COPD and ANGLE w/o CPAP use. I have discussed the causes of secondary erthrocytosis being oxygenation issues like smoking, COPD, asthma, and sleep apnea. Other risk factors are hormone use and obesity. I have discussed the risk for blood clot formation and thromboembolic events. I have discussed risk factors and signs and symptoms of blood clots. I have suggested continuing a baby aspirin for thromboembolic prevention as well as weight loss, and exercise. He will need phlebotomy if Hct >50% and discussed that in detail as well. Anxiety/Depression Patient is on Zoloft Hypertension Patient is on Losartan Hyperlipidemia Patient is on Atorvastatin Hx of Stroke Patient is on Aspirin Follow up in 3 months TRUNG Burton-C, 08/15/2023 1:49 PM Hematology Oncology Nurse Practitioner [facility] ? Total time spent 60 minutes, two third of the total time spent counseling patient [id number]. This patient's plan of care has been reviewed and approved by collaborating physician, Dr. Maco Calero.If you have any questions regarding this hematology or oncology evaluation, feel free to contact usfor further assistance. Thank you for allowing us to be a part of this patient's care. CC: Annabelle Donald MD documented in this encounter Plan of Treatment Scheduled Orders Name Type Priority Associated Diagnoses Orde r Schedule CBC WITH DIFFERENTIAL Lab Routine Secondary erythrocytosis Expected: 08/15/2023, Expires: 08/14/2024 COMPREHENSIVE METABOLIC PANEL Lab Routine Secondary erythrocytosis Expected: 08/15/2023, Expires: 08/14/2024 ERYTHROPOIETIN LEVEL Lab Routine Secondary erythrocytosis Expected: 08/15/2023, Expires: 08/14/2024 BASIC METABOLIC PANEL Lab Routine Secondary erythrocytosis Expected: 11/07/2023, Expires: 08/14/2024 CBC WITH DIFFERENTIAL Lab Routine Secondary erythrocytosis Expected: 11/07/2023, Expires: 08/14/2024 documented as of this encounter Visit Diagnoses Diagnosis Secondary erythrocytosis- Primary Polycythemia, secondary documented in this encounter Care Teams Laser Beam Cutter Relationship Specialty Start Date End Date Annabelle Donald MD PCP - General Internal Medicine 07/30/23 documented as of this encounter
--- OUTSIDE RECORDS SUMMARY | 2024-03-22 20:49 | XMS_ITS | Encounter Summary ---
Author Organization [facility] Address [address] [place] [address] Care Team Providers Care Mill Tender Warm Up Name Role Phone Annabelle Donald MD Primary Care Provider Encounter Details Date Type Department Care Team (Late st Contact Info) Description 09/24/2023 External Device Data STL ABSTRACTION Provider, Abstract [...] on filedocumented in this encounter Care Teams Mill Tender Warm Up Relationship Specialty Start Date End Date Annabelle Donald MD PCP - General Internal Medicine 07/30/23 documented as of this encounter
--- OUTSIDE RECORDS SUMMARY | 2024-03-22 20:49 | XMS_ITS | Encounter Summary ---
Author Organization [facility] Address [address] [place] [address] Care Team Providers Care Sewer Pipe Press Operator Name Role Phone Annabelle Donald MD Primary Care Provider Encounter Details Date Type Department Care Team (Late st Contact Info) Description 08/20/2023 External Device Data STL ABSTRACTION Provider, Abstract [...] on filedocumented in this encounter Care Teams Sewer Pipe Press Operator Relationship Specialty Start Date End Date Annabelle Donald MD PCP - General Internal Medicine 07/30/23 documented as of this encounter
--- OUTSIDE RECORDS SUMMARY | 2024-03-22 20:49 | XMS_ITS | Clinical Summary ---
Author Organization [facility] Facility Address [address] [facility] [address] [place] [address], [place] [address] Care Team Providers Care Command And Control Officer Name Role Phone Annabelle Donald MD Primary Care Provider [phone] Social History Tobacco Use Types Packs/Day Years Used Date Smoking Tobacco: Never Assessed Sex and Gender Information Value Date Recorded Sex Assigned at Not on file Legal Sex Male 11:59 AM EDT Gender Identity Not on file Sexual Orientation Not on file Plan of Treatment Health Maintenance Due Date Last Done Comments Colorectal Cancer Screening: Annual FOBT 01/12/2001 Colorectal Cancer Screening: Colonoscopy 01/12/2001 Colorectal Cancer Screening: Sigmoidoscopy 01/12/2001 Pneumococcal Vaccine: 65+ Ye ars (1 of 1 - PCV) 01/12/2017 Influenza Vaccine (#1) 2023 Hepatitis B Vaccine Aged Out No longe r eligible based on patient's age to complete this topic Insurance [place] [address] Care Teams Command And Control Officer Relationship Specialty Start Date End Date Annabelle Donald MD [address] [facility], [address] [place] [address] PCP - General Internal Medicine 07/18/23
--- OUTSIDE RECORDS SUMMARY | 2024-03-22 20:49 | XMS_ITS | Encounter Summary ---
Author Organization [facility] [employer] [facility] Address [address] [place] [address] Care Team Providers Care Professor Of Criminal Justice Name Role Phone Annabelle Donald MD Primary Care Provider Reason for Visit * Reason Onset Date Comments lab work for appointment 11/12/2023 Encounter Details Date Type Department Care Team (Late st Contact Info) Description 11/12/2023 Telephone [facility] Oncology and Hematology - Mauricio [address] [facility] [address] [place] [address] Nancy Sebastian FNP [address] [facility] [address] [place] [address] lab work for appointment Social History Tobacco Use Types Packs/Day Years [...] encounter Miscellaneous Notes * Telephone Encounter - Rocío Lindo - 11/12/2023 9:38 AM CDT Called patient left voicemail with appointment reminder and need for lab work. documented in this encounter Plan of Treatment Not on file documented as of this encounter Visit Diagnoses Not on filedocumented in this encounter Care Teams Professor Of Criminal Justice Relationship Specialty Start Date End Date Annabelle Donald MD PCP - General Internal Medicine 07/30/23 documented as of this encounter
--- OUTSIDE RECORDS SUMMARY | 2024-03-22 20:49 | XMS_ITS | Encounter Summary ---
Author Organization [facility] Address [address] [place] [address] Care Team Providers Care Distribution Systems Superintendent Name Role Phone Annabelle Donald MD Primary [...] on filedocumented in this encounter Care Teams Distribution Systems Superintendent Relationship Specialty Start Date End Date Annabelle Donald MD PCP - General Internal Medicine 07/30/23 documented as of this encounter
--- OUTSIDE RECORDS SUMMARY | 2024-03-22 20:49 | XMS_ITS | Encounter Summary ---
Author Organization [employer] Address [address] [place] [address] Phone Care Team Providers Care Cash Accounting Clerk Name Role Phone Annabelle Donald MD Primary Care Provider [phone] Encounter Details Date Type Department Care Team (Late st Contact Info) Description 07/18/2023 Documentation Only [facility], [address] [address] Provider, MD [place] [address] [place] [address] Social History Tobacco Use Types Packs/Day Years [...] on filedocumented in this encounter Care Teams Cash Accounting Clerk Relationship Specialty Start Date End Date Annabelle Donald MD [address] [facility], [address] [place] [address] PCP - General Internal Medicine 07/18/23 documented as of this encounter
--- OUTSIDE RECORDS SUMMARY | 2024-03-22 20:49 | XMS_ITS | Encounter Summary ---
Author Organization [facility] [employer] [facility] Address [address] [place] [address] Care Team Providers Care Load Out Worker Name Role Phone Annabelle Donald MD Primary Care Provider Reason for Visit * Reason Onset Date Comments Lab Results 08/15/2023 Encounter Details Date Type Department Care Team (Late st Contact Info) Description 08/15/[address] [facility] Oncology and Hematology - Mauricio [address] [facility] [address] [place] [address] Nancy Sebastian FNP [address] [facility] [address] [place] [address] Lab Results Social History Tobacco Use Types Packs/Day Years [...] encounter Miscellaneous Notes * Telephone Encounter - Silvia Lopez - 08/15/2023 4:12 PM CDT Patient aware of recommendations. * Telephone Encounter - Silvia Lopez - 08/15/2023 4:12 PM CDT ----- Message from TRUNG Burton sent at 08/15/2023 4:03 PM CDT ----- Please call patient and let them know he will not need phlebotomy at this time. We will recheck labs in 3 months. documented in this encounter Plan of Treatment Not on file documented as of this encounter Visit Diagnoses Not on filedocumented in this encounter Care Teams Load Out Worker Relationship Specialty Start Date End Date Annabelle Donald MD PCP - General Internal Medicine 07/30/23 documented as of this encounter
--- OUTSIDE RECORDS SUMMARY | 2024-03-22 20:49 | XMS_ITS | Encounter Summary ---
Author Organization [facility] Address [address] [place] [address] Care Team Providers Care Clerical Order Filler Name Role Phone Annabelle Donald MD Primary Care Provider Encounter Details Date Type Department Care Team (Late st Contact Info) Description 10/29/2023 External Device Data STL ABSTRACTION Provider, Abstract [...] on filedocumented in this encounter Care Teams Clerical Order Filler Relationship Specialty Start Date End Date Annabelle Donald MD PCP - General Internal Medicine 07/30/23 documented as of this encounter
--- OUTSIDE RECORDS SUMMARY | 2024-03-22 20:49 | XMS_ITS | Encounter Summary ---
Author Organization [facility] [employer] [facility] Address [address] [place] [address] Care Team Providers Care Manufacturing Engineering Technician Name Role Phone Annabelle Donald MD Primary Care Provider Encounter Details Date Type Department Care Team (Late st Contact Info) Description 08/15/2023 Orders Only [facility] Oncology and Hematology - Mauricio [address] [place] [address] Nancy Sebatsian FNP [address] [facility] [address] [place] [address] Social History Tobacco Use Types Packs/Day Years [...] Name Priority Date/Time Associated Diagnosis Comments CBC WITH DIFFERENTIAL Routine 08/15/2023 3:53 PM CDT documented in this encounter Results * CBC WITH DIFFERENTIAL (08/15/2023 3:53 PM CDT) Blood Nancy NINO HEMATOLOGY ORDERABLE S documented in this encounter Visit Diagnoses Not on filedocumented in this encounter Care Teams Manufacturing Engineering Technician Relationship Specialty Start Date End Date Annabelle Donald MD PCP - General Internal Medicine 07/30/23 documented as of this encounter
--- OUTSIDE RECORDS SUMMARY | 2024-03-22 20:49 | XMS_ITS | Encounter Summary ---
Author Organization [facility] Address [address] [place] [address] Care Team Providers Care Sanitary Engineering Teacher Name Role Phone Annabelle Donald MD [...] on filedocumented in this encounter Care Teams Sanitary Engineering Teacher Relationship Specialty Start Date End Date Annabelle Donald MD PCP - General Internal Medicine 07/30/23 documented as of this encounter
--- OUTSIDE RECORDS SUMMARY | 2024-03-22 20:49 | XMS_ITS | Encounter Summary ---
Author Organization [facility] [facility] Address [address] [place] [address] Care Team Providers Care Screening Nurse Name Role Phone Annabelle Donald MD Primary [...] on filedocumented in this encounter Care Teams Screening Nurse Relationship Specialty Start Date End Date Annabelle Donald MD PCP - General Internal Medicine 07/30/23 documented as of this encounter
--- OUTSIDE RECORDS SUMMARY | 2024-03-22 20:49 | XMS_ITS | Encounter Summary ---
Author Organization [facility] Address [address] [place] [address] Care Team Providers Care Outside Sales Executive Name Role Phone Annabelle Donald MD Primary Care Provider Encounter Details Date Type Department Care Team (Late st Contact Info) Description 09/10/2023 External Device Data STL ABSTRACTION Provider, Abstract [...] on filedocumented in this encounter Care Teams Outside Sales Executive Relationship Specialty Start Date End Date Annabelle Donald MD PCP - General Internal Medicine 07/30/23 documented as of this encounter
--- OUTSIDE RECORDS SUMMARY | 2024-03-22 20:49 | XMS_ITS | Encounter Summary ---
Author Organization [facility] [employer] [facility] Address [address] [place] [address] Care Team Providers Care Skein Yarn Dyer Helper Name Role Phone Annabelle Donald MD Primary Care Provider Encounter Details Date Type Department Care Team (Late st Contact Info) Description 08/21/2023 Orders Only [facility] Oncology and Hematology - Mauricio [address] [facility] [address] [place] [address] Maco Calero MD [address] [facility] [address] [place] [address] Social History Tobacco Use Types [...] Procedure Name Priority Date/Time Associated Diagnosis Comments ERYTHROPOIETIN LEVEL Routine 08/15/2023 10:49 AM CDT COMPREHENSIVE METABOLIC PANEL Routine 08/15/2023 9:33 AM CDT COMPREHENSIVE METABOLIC PANEL Routine 08/15/2023 9:31 AM CDT documented in this encounter Results * ERYTHROPOIETIN LEVEL (08/15/2023 10:49 AM CDT) Blood Nancy NINO CHEMISTRY ORDERABLES * COMPREHENSIVE METABOLIC PANEL (08/15/2023 9:33 AM CDT) Blood Nancy NINO CHEMISTRY ORDERABLES * COMPREHENSIVE METABOLIC PANEL (08/15/2023 9:31 AM CDT) Blood Maco Calero MD CHEMISTRY ORDERABLES documented in this encounter Visit Diagnoses Not on filedocumented in this encounter Care Teams Skein Yarn Dyer Helper Relationship Specialty Start Date End Date Annabelle Donald MD PCP - General Internal Medicine 07/30/23 documented as of this encounter
--- OUTSIDE RECORDS SUMMARY | 2024-03-22 20:49 | XMS_ITS | Continuity of Care Document ---
Author Organization [facility] Address [address] [place] [address] Phone Care Team Providers Care Sanitation Tank Washer Name Role Phone Esparza OD, Chuck Unavailable Unavailable Procedures Procedure Date Eye Exam & Treatment Refraction Eye Exam & Treatment Refraction Advance Directives Directive Yes / No Effective Date File Name No Information Encounters Encounter Description Practice Location Reason(s) For Visit Diagnoses Date Provider Providers Copied on Encounter [facility], [address], [place], [place], [id number], [place] tel:[phone] [facility] [place] No Information [phone] Esparza OD Chuck. [address] , [address], [place], [address], [place]. tel:[phone] Family History Family Member Type Diagnosis Age At Onset No Information Payers Payer name Insurance type Covered constitution party ID Authoriza tion(s) No Information Social History Type Description Quantity Date Captured Comments Sex Male Smoking Status No Information Chief Complaint And Reason For Visit No Information Reason For Referral Reason For Referral No Information History Of Present Illness Encounter Date Complaint History Of Prese nt Illness No Information Functional Status Date Functional Assessmen t No Information Instructions Date Instruction Additional Infor mation No Information Assessments Type Assessment Date No Information Patient Care Teams Name Effective Dates (start - stop) Status Members No Information
--- OUTSIDE RECORDS SUMMARY | 2024-03-22 23:47 | XMS_ITS | Encounter Summary ---
Author Organization [facility] Address [address] [place] [address] Care Team Providers Care Manager Storage Name Role Phone Annabelle Donald MD Primary Care Provider Reason for Visit * Reason Comments Follow-up seizure Encounter Details Date Type Department Care Team (Late st Contact Info) Description 07/03/2019 1:40 PM CDT Video Visit [facility] [address] [place] [address] Julio Aaron, MANAGER DATA CENTER-CANOE INSPECTOR FINAL [address] [address] 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, [...] of this encounter Progress Notes * Kiah Aaronxochitlcassandrahans Dede, MANAGER DATA CENTER-CANOE INSPECTOR FINAL - 07/03/2019 1:42 PM CDT Virtual Visit [...] ??? 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 Financial resource strain: Not [...] file Gets together: Not on file Attends episcopal service: Not on file Active member of [...] updated as documented in Epic 5-10 minutes [id number] 11-20 minutes [id number] 21-30 minutes [id number] ALFRED Mccarthy 07/03/19 documented in this encounter [...] hypertension documented in this encounter Care Teams Manager Storage Relationship Specialty Start Date End Date Annabelle Donald MD [address] [id number] PCP - General 03/04/18 documented as of this encounter
--- OUTSIDE RECORDS SUMMARY | 2024-03-22 23:47 | XMS_ITS | Encounter Summary ---
Author Organization [facility] Address [address] [facility] [place] [address] Care Team Providers Care Regulatory Compliance Engineer Name Role Phone Kelsie Toure Primary Care Provider + Encounter Details Date Type Department Care Team (Late st Contact Info) Description 08/02/2017 Orders Only [facility] [address] [place] [address] Beni Mondragon Social History Tobacco Use Types [...] on filedocumented in this encounter Care Teams Regulatory Compliance Engineer Relationship Specialty Start Date End Date Kelsie Toure APRN-CNP [address] [place] [address] PCP - General Nurse Practitioner 08/13/16 03/03/18 documented as of this encounter
--- OUTSIDE RECORDS SUMMARY | 2024-03-22 23:47 | XMS_ITS | Encounter Summary ---
Author Organization [facility] Address [address] [place] [address] Care Team Providers Care Quality Control Analyst Name Role Phone Kelsie Toure MISTY-DISH PERSON Primary Care Provider + Reason for Referral * Evaluate & Treat - Closed Specialty Diagnoses / Procedures Referred By Barney ruggiero Referred To Contact Diagnoses Degenerative disc disease, lumbar Facet arthropathy, lumbar Chuck Carbone DO [address] [place] [address] Referral ID Status Reason Start Date Expiration Date V isits Requested Visits Authorized [id number] Closed Specialty Services Required 08/13/2016 02/09/2017 1 1 Reason for Visit * Reason Comments Consultation Encounter Details Date Type Department Care Team (Late st Contact Info) Description 08/13/2016 11:30 AM CDT Office Visit [facility] [address] [facility] [facility] [place] [id number] Chuck Carbone DO [address] [facility] [address] [place] [address] Degenerative disc disease, lumbar (Primary Dx); [...] Ultimately, the patient and his decided to [facility] pain management route. I provided him [...] myelopathy documented in this encounter Care Teams Quality Control Analyst Relationship Specialty Start Date End Date Kelsie Toure APRN-GONZALO [address] [place] [address] PCP - General Nurse Practitioner 08/13/16 03/03/18 documented as of this encounter
--- OUTSIDE RECORDS SUMMARY | 2024-03-22 23:47 | XMS_ITS | Encounter Summary ---
Author Organization [facility] Address [address] [place] [address] Care Team Providers Care Licensed Practical Nurse Name Role Phone Kelsie Toure ALFRED Primary Care Provider + Reason for Visit * Reason Onset Date Comments MEDICATION REFILL 01/08/2018 Encounter Details Date Type Department Care Team (Late st Contact Info) Description 01/08/2018 Refill [facility] [address] [place] [address] Julio Aaron APRN-CNP [address] [place] [phone] MEDICATION REFILL Social History Tobacco Use Types [...] on filedocumented in this encounter Care Teams Licensed Practical Nurse Relationship Specialty Start Date End Date Klesie Toure APRN-CNP [address] [place] [address] PCP - General Nurse Practitioner 08/13/16 03/03/18 documented as of this encounter
--- OUTSIDE RECORDS SUMMARY | 2024-03-22 23:47 | XMS_ITS | Encounter Summary ---
Author Organization [facility] Address [address] [facility] [place] [address] Care Team Providers Care Edger Machine Operator Name Role Phone Annabelle Donald MD Primary Care Provider Encounter Details Date Type Department Care Team (Latest Contact Info) Description 04/01/2019 3:57 PM COMPUTER EDUCATION PROFESSOR - 04/01/2019 11:59 PM [facility] Hospital Encounter [facility] [address] [place] [phone] Julio Aaron, NAVAL AIRCREWMAN-CAT DRIVER [address] [place] [phone] Discharge Disposition: Home or Self Care Social [...] ACID FREE+TOTAL PANEL Routine 04/01/2019 4:06 PM COMPUTER EDUCATION PROFESSOR 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, wo status (HCC) Essential (primary) hypertension Medication monitoring encounter CBC W AUTO DIFFERENTIAL Routine 04/01/2019 4:06 PM COMPUTER EDUCATION PROFESSOR Localz-rltd symptomatic epilepsy w cmplx part natalia, notintrac, wo status (HCC) Essential (primary) hypertension Medication monitoring encounter COMPREHENSIVE METABOLIC PANEL Routine 04/01/2019 4:06 PM COMPUTER EDUCATION PROFESSOR 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, notintrac, wo status (HCC) Essential (primary) hypertension Medication monitoring encounter VALPROIC ACID LEVEL Routine 04/01/2019 4 :06 PM COMPUTER EDUCATION PROFESSOR 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, notintrac, wo status (HCC) Essential (primary) hypertension Medication monitoring encounter CARBAMAZEPINE LEVEL TOTAL Routine 04/01/2019 4:06 PM COMPUTER EDUCATION PROFESSOR 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, notintrac, wo status (HCC) Essential (primary) hypertension Medication monitoring encounter documented in this encounter Results * (ABNORMAL) VALPROIC ACID FREE+TOTAL PANEL (04/01/2019 4:06 PM COMPUTER EDUCATION PROFESSOR) Valproic Acid Free <7(L) 7 - 23 ug/mL 04/03/2019 3:17 PM COMPUTER EDUCATION PROFESSOR [facility] ([facility]) Valproic Acid Total 20(L) 50 - 125 ug/mL 04/03/2019 3:17 PM COMPUTER EDUCATION PROFESSOR [facility] ([facility]) Valproic Acid % Free Not Applicable 5 - 18 % 04/03/2019 3:17 PM COMPUTER EDUCATION PROFESSOR [facility] ([facility]) Comment: INTERPRETIVE INFORMATION: VPA-percent Free Valproic [...] include headache, somnolence and dizziness. Performed by [employer], [address] [place] [address],[place] [id number] [email or web address], Rehan Zamarripa MD, Lab. Director Blood BLOOD SPECIMEN / Unknown Lab Venipuncture / Unknown 04/01/2019 4:06 PM COMPUTER EDUCATION PROFESSOR 04/01/2019 4:12 PM COMPUTER EDUCATION PROFESSOR Julio SIMON LAB - THERAPEU TIC DRUG MONITORING ORDERABLES [address] * CARBAMAZEPINE LEVEL TOTAL (04/01/2019 4:06 PM COMPUTER EDUCATION PROFESSOR) Pathologist [facility] Carbamazepine, trough 7.9 4.0 - 12.0 mcg/mL 04/01/2019 5:11 PM COMPUTER EDUCATION PROFESSOR [facility] Blood BLOOD SPECIMEN / Unknown Lab Venipuncture / Unknown 04/01/2019 4:06 PM COMPUTER EDUCATION PROFESSOR 04/01/2019 4:12 PM COMPUTER EDUCATION PROFESSOR Julio Aaron APRN-CAT DRIVER LAB - CHEMISTR Y ORDERABLES [address] [phone] * (ABNORMAL) VALPROIC ACID LEVEL (04/01/2019 4:06 PM COMPUTER EDUCATION PROFESSOR) [facility] Valproic Acid Total 19(L) 50 - 100 mcg/mL 04/01/2019 5:08 PM COMPUTER EDUCATION PROFESSOR [facility] Blood BLOOD SPECIMEN / Unknown Lab Venipuncture / Unknown 04/01/2019 4:06 PM COMPUTER EDUCATION PROFESSOR 04/01/2019 4:12 PM COMPUTER EDUCATION PROFESSOR Julio Aaron APRNCAT DRIVER LAB - CHEMISTR Y ORDERABLES Performing Organization Address City/[facility]/ZIP Co de Phone Number [address] [phone] * (ABNORMAL) COMPREHENSIVE METABOLIC PANEL (04/01/2019 4:06 PM COMPUTER EDUCATION PROFESSOR) Pathologist [facility] BUN 12 7 - 26 mg/dL 04/01/2019 5:11 PM COMPUTER EDUCATION PROFESSOR [facility] Creatinine 0.8 0.6 - 1.2 mg/dL 04/01/2019 5:11 PM [facility] Sodium 145 136 - 145 mmol/L 04/01/2019 5:11 PM [facility] Potassium 3.8 3.5 - 4.5 mmol/L 04/01/2019 5:11 PM [facility] Chloride 105 98 - 107 mmol/L 04/01/2019 5:11 PM [facility] CO2 29 22 - 29 mmol/L 04/01/2019 5:11 PM [facility] Glucose 95 70 - 115 mg/dL 04/01/2019 5:11 PM [facility] Calcium 9.5 8.4 - 10.2 mg/dL 04/01/2019 5:11 PM [facility] Protein Total 7.4 6.0 - 8.3 g/dL 04/01/2019 5:11 PM [facility] Albumin 3.7 3.4 - 5.0 g/dL 04/01/2019 5:11 PM [facility] Bilirubin Total 0.2 0.2 - 1.2 mg/dL 04/01/2019 5:11 PM [facility] Alkaline Phosphatase 99 40 - 150 Units/L 04/01/2019 5:11 PM [facility] ALT 20 0 - 55 Units/L 04/01/2019 5:11 PM [facility] AST 16 5 - 34 Units/L 04/01/2019 5:11 PM [facility] Anion Gap 15 8 - 18 04/01/2019 5:11 PM [facility] BUN/Creatinine Ratio 15 7 - 23 04/01/2019 5:11 PM [facility] Osmolality Calculated 300 270 - 300 mOsm/kg 04/01/2019 5:11 PM [facility] Albumin/Globulin Ratio 1.0(L) 1.1 - 2.3 04/01/2019 5:11 PM [facility] eGFR >60 >60 mL/min/1.7 3 m2 04/01/2019 5:11 PM [facility] Blood BLOOD SPECIMEN / Unknown Lab Venipuncture / Unknown 04/01/2019 4:06 PM COMPUTER EDUCATION PROFESSOR 04/01/2019 4:12 PM [facility] Julio Aaron NAVAL AIRCREWMAN-CAT DRIVER LAB - CHEMISTR Y ORDERABLES [facility] [address] [phone] * CBC WITH DIFFERENTIAL (04/01/2019 4:06 PM [facility]) WBC 7.2 3.5 - 10.5 10? 3 /uL 04/01/2019 4:32 PM [facility] RBC 5.04 4.30 - 5.70 10? 6 /uL 04/01/2019 4:32 PM [facility] Hemoglobin 15.4 13.5 - 17.5 g/dL 04/01/2019 4:32 PM [facility] Hematocrit 44.6 39.0 - 50.0 % 04/01/2019 4:32 PM [facility] MCV 88.5 81.0 - 97.0 fL 04/01/2019 4:32 PM [facility] MCH 30.6 28.0 - 34.0 pg 04/01/2019 4:32 PM [facility] MCHC 34.5 32.0 - 36.0 g/dL 04/01/2019 4:32 PM [facility] Platelet Count 222 150 - 400 10? 3 /uL 04/01/2019 4:32 PM [facility] RDW-SD 37.6 36.0 - 50.0 fL 04/01/2019 4:32 PM [facility] RDW-CV 11.8 11.2 - 14.8 % 04/01/2019 4:32 PM [facility] MPV 10.4 9.3 - 12.8 fL 04/01/2019 4:32 PM [facility] nRBC Absolute 0.00 0 10? 3 /uL 04/01/2019 4:32 PM [facility] nRBC Auto 0.0 0 /100 WBC 04/01/2019 4:32 PM [facility] Neutrophils % 57.6 35.0 - 70.0 % 04/01/2019 4:32 PM [facility] Lymphocytes % 31.2 19.7 - 55.1 % 04/01/2019 4:32 PM [facility] Monocytes % 7.6 3.0 - 15.0 % 04/01/2019 4:32 PM [facility] Eosinophils % 2.5 0.0 - 6.0 % 04/01/2019 4:32 PM [facility] Basophil % 0.8 0.0 - 1.5 % 04/01/2019 4:32 PM [facility] Neutrophils Absolute 4.2 1.6 - 7.0 10? 3 /uL 04/01/2019 4:32 PM [facility] Lymphocyte Absolute 2.3 0.8 - 2.9 10? 3 /uL 04/01/2019 4:32 PM [facility] Monocytes Absolute 0.55 0.14 - 0.66 10? 3 /uL 04/01/2019 4:32 PM [facility] Eosinophils Absolute 0.18 0.00 - 0.45 10? 3 /uL 04/01/2019 4:32 PM [facility] Basophils Absolute 0.06 0.00 - 0.06 10? 3 /uL 04/01/2019 4:32 PM [facility] Immature Granulocytes % 0.3 0.0 - 1.0 % 04/01/2019 4:32 PM [facility] Blood BLOOD SPECIMEN / Unknown Lab Venipuncture / Unknown 04/01/2019 4:06 PM COMPUTER EDUCATION PROFESSOR 04/01/2019 4:12 PM COMPUTER EDUCATION PROFESSOR Julio Aaron NAVAL AIRCREWMAN-CAT DRIVER LAB - HEMATOLO GY ORDERABLES Performing Organization Address [facility]/State/[facility] Co de Phone Number [facility] [address] [phone] documented in this encounter Visit Diagnoses Diagnosis 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
--- OUTSIDE RECORDS SUMMARY | 2024-03-22 23:47 | XMS_ITS | Patient Health Summary ---
Author Organization [facility] Address [address] [place] [address] Care Team Providers Care Chemical Economist Name Role Phone Annabelle Donald MD Primary Care Provider Note from [facility],non-owned Affiliates and Associated Physician Practices is amultiple site organization consisting of ambulatory clinics and hospital sitesin [place], [place], [place] and [place]. This disclosure is being madepursuant to the Care Everywhere program and may not contain all information available regarding this patient. Last updated 17.[facility] Allergies No known active allergies Medications [...] Comments Blood Pressure 150/86 04/01/2019 3:08 PM [facility] Pulse 75 04/01/2019 3:08 PM [facility] Temperature 36.8 ??C (98.3 ??F) 03/11/2018 1:56 PM CS T Respiratory Rate 16 05/06/2017 5:31 PM [facility] Oxygen Saturation 100% 05/06/2017 5:31 PM [facility] Inhaled Oxygen Concentration - - Weight 100.2 kg (221 lb) 04/01/2019 3:08 PM [facility] Height 177.8 cm (5' 10 ) 04/01/2019 3:08 PM [facility] Body Mass Index 31.71 04/01/2019 3:08 PM [facility] Procedures * VALPROIC ACID FREE+TOTAL PANEL(Performed 04/01/2019) [...] VALPROIC ACID FREE+TOTAL PANEL (04/01/2019 4:06 PM [facility]) Valproic Acid Free <7(L) 7 - 23 ug/mL 04/03/2019 3:17 PM [facility] ([facility]) Valproic Acid Total 20(L) 50 - 125 ug/mL 04/03/2019 3:17 PM [facility] ([facility]) Valproic Acid % Free Not Applicable 5 - 18 % 04/03/2019 3:17 PM [facility] ([facility]) Comment: INTERPRETIVE INFORMATION: VPA-percent Free Valproic Acid, [...] include headache, somnolence and dizziness. Performed by [facility], [address] [place] [address] [email or web address], Rehan Zamarripa MD, Lab. Director Blood BLOOD SPECIMEN / Unknown Lab Venipuncture / Unknown 04/01/2019 4:06 PM [facility] 04/01/2019 4:12 PM [facility] Julio Aaron WOODWORKING CRAFTSMAN-TYPECASTING MACHINE OPERATOR LAB - THERAPEU TIC DRUG MONITORING ORDERABLES [facility] ([facility]) [address] [place] [address], [facility] * CBC WITH DIFFERENTIAL (04/01/2019 4:06 PM [facility]) Only the most recent of9 resultswithin the time period is included. WBC 7.2 3.5 - 10.5 10? 3 /uL 04/01/2019 4:32 PM [facility] RBC 5.04 4.30 - 5.70 10? 6 /uL 04/01/2019 4:32 PM [facility] Hemoglobin 15.4 13.5 - 17.5 g/dL 04/01/2019 4:32 PM [facility] Hematocrit 44.6 39.0 - 50.0 % 04/01/2019 4:32 PM [facility] MCV 88.5 81.0 - 97.0 fL 04/01/2019 4:32 PM [facility] MCH 30.6 28.0 - 34.0 pg 04/01/2019 4:32 PM [facility] MCHC 34.5 32.0 - 36.0 g/dL 04/01/2019 4:32 PM [facility] Platelet Count 222 150 - 400 10? 3 /uL 04/01/2019 4:32 PM [facility] RDW-SD 37.6 36.0 - 50.0 fL 04/01/2019 4:32 PM [facility] RDW-CV 11.8 11.2 - 14.8 % 04/01/2019 4:32 PM [facility] MPV 10.4 9.3 - 12.8 fL 04/01/2019 4:32 PM [facility] nRBC Absolute 0.00 0 10? 3 /uL 04/01/2019 4:32 PM [facility] nRBC Auto 0.0 0 /100 WBC 04/01/2019 4:32 PM [facility] Neutrophils % 57.6 35.0 - 70.0 % 04/01/2019 4:32 PM [facility] Lymphocytes % 31.2 19.7 - 55.1 % 04/01/2019 4:32 PM [facility] Monocytes % 7.6 3.0 - 15.0 % 04/01/2019 4:32 PM [facility] Eosinophils % 2.5 0.0 - 6.0 % 04/01/2019 4:32 PM [facility] Basophil % 0.8 0.0 - 1.5 % 04/01/2019 4:32 PM [facility] Neutrophils Absolute 4.2 1.6 - 7.0 10? 3 /uL 04/01/2019 4:32 PM [facility] Lymphocyte Absolute 2.3 0.8 - 2.9 10? 3 /uL 04/01/2019 4:32 PM [facility] Monocytes Absolute 0.55 0.14 - 0.66 10? 3 /uL 04/01/2019 4:32 PM [facility] Eosinophils Absolute 0.18 0.00 - 0.45 10? 3 /uL 04/01/2019 4:32 PM [facility] Basophils Absolute 0.06 0.00 - 0.06 10? 3 /uL 04/01/2019 4:32 PM [facility] Immature Granulocytes % 0.3 0.0 - 1.0 % 04/01/2019 4:32 PM [facility] Blood BLOOD SPECIMEN / Unknown Lab Venipuncture / Unknown 04/01/2019 4:06 PM [facility] 04/01/2019 4:12 PM [facility] Julio Aaron WOODWORKING CRAFTSMAN-TYPECASTING MACHINE OPERATOR LAB - HEMATOLO GY ORDERABLES [facility] [address] [phone] * (ABNORMAL) COMPREHENSIVE METABOLIC PANEL (04/01/2019 4:06 PM [facility]) Only the most recent of3 resultswithin the time period is included. BUN 12 7 - 26 mg/dL 04/01/2019 5:11 PM [facility] Creatinine 0.8 0.6 - 1.2 mg/dL 04/01/2019 5:11 PM [facility] Sodium 145 136 - 145 mmol/L 04/01/2019 5:11 PM [facility] Potassium 3.8 3.5 - 4.5 mmol/L 04/01/2019 5:11 PM [facility] Chloride 105 98 - 107 mmol/L 04/01/2019 5:11 PM [facility] CO2 29 22 - 29 mmol/L 04/01/2019 5:11 PM [facility] Glucose 95 70 - 115 mg/dL 04/01/2019 5:11 PM [facility] Calcium 9.5 8.4 - 10.2 mg/dL 04/01/2019 5:11 PM [facility] Protein Total 7.4 6.0 - 8.3 g/dL 04/01/2019 5:11 PM [facility] Albumin 3.7 3.4 - 5.0 g/dL 04/01/2019 5:11 PM [facility] Bilirubin Total 0.2 0.2 - 1.2 mg/dL 04/01/2019 5:11 PM [facility] Alkaline Phosphatase 99 40 - 150 Units/L 04/01/2019 5:11 PM [facility] ALT 20 0 - 55 Units/L 04/01/2019 5:11 PM [facility] AST 16 5 - 34 Units/L 04/01/2019 5:11 PM [facility] Anion Gap 15 8 - 18 04/01/2019 5:11 PM [facility] BUN/Creatinine Ratio 15 7 - 23 04/01/2019 5:11 PM [facility] Osmolality Calculated 300 270 - 300 mOsm/kg 04/01/2019 5:11 PM [facility] Albumin/Globulin Ratio 1.0(L) 1.1 - 2.3 04/01/2019 5:11 PM [facility] eGFR >60 >60 mL/min/1.7 3 m2 04/01/2019 5:11 PM [facility] Blood BLOOD SPECIMEN / Unknown Lab Venipuncture / Unknown 04/01/2019 4:06 PM [facility] 04/01/2019 4:12 PM [facility] Julio Aaron APRN-TYPECASTING MACHINE OPERATOR LAB - CHEMISTR Y ORDERABLES [address] [phone] * (ABNORMAL) VALPROIC ACID LEVEL (04/01/2019 4:06 PM [facility]) Only the most recent of5 resultswithin the time period is included. Valproic Acid Total 19(L) 50 - 100 mcg/mL 04/01/2019 5:08 PM [facility] Blood BLOOD SPECIMEN / Unknown Lab Venipuncture / Unknown 04/01/2019 4:06 PM [facility] 04/01/2019 4:12 PM [facility] Julio Aaron APRN-TYPECASTING MACHINE OPERATOR LAB - CHEMISTR Y ORDERABLES Performing Organization Address [facility] Co de Phone Number [address] [phone] * CARBAMAZEPINE LEVEL TOTAL (04/01/2019 4:06 PM [facility]) Only the most recent of5 resultswithin the time period is included. Carbamazepine, trough 7.9 4.0 - 12.0 mcg/mL 04/01/2019 5:11 PM [facility] Blood BLOOD SPECIMEN / Unknown Lab Venipuncture / Unknown 04/01/2019 4:06 PM [facility] 04/01/2019 4:12 PM [facility] Julio Aaron APRN-TYPECASTING MACHINE OPERATOR LAB - CHEMISTR Y ORDERABLES Performing Organization Address City/[facility]/ZIP Co de Phone Number [address] [phone] * B-TYPE NATRIURETIC PEPTIDE (05/06/2017 9:03 AM [facility]) [facility] Signature BNP 78 See Comment pg/mL [facility] Comment: A decision threshold of 100 pg/mL [...] BLOOD SPECIMEN / Unknown 05/06/2017 9:03 AM [facility] 05/06/2017 9:12 AM [facility] Walter Robertson MD LAB - CHEMISTRY CELESTE ANGLIN Performing Organization Address [facility] Co de Phone Number [address] [phone] * TSH (05/06/2017 9:03 AM [facility]) Only the most recent of2 resultswithin the time period is included. TSH 0.445 0.350 - 4.940 uIU/mL [facility] Blood specimen (specimen) BLOOD SPECIMEN / Unknown 05/06/2017 9:03 AM [facility] 05/06/2017 9:12 AM [facility] Walter Robertson MD LAB - CHEMISTRY CELESTE ANGLIN Performing Organization Address [facility] Co de Phone Number [address] [phone] * TROPONIN I (05/06/2017 3:12 AM [facility]) Only the most recent of3 resultswithin the time period is included. Troponin I 0.015 <0.032 ng/mL [facility] Blood specimen (specimen) BLOOD SPECIMEN / Unknown 05/06/2017 3:12 AM [facility] 05/06/2017 3:42 AM [facility] Walter Robertson MD LAB - CHEMISTRY CELESTE ANGLIN Performing Organization Address [facility] Co de Phone Number [address] [phone] * (ABNORMAL) BASIC METABOLIC PANEL (CALCIUM TOTAL) (05/06/2017 3:12 AM [facility]) BUN 10 7 - 26 mg/dL [facility] Creatinine 0.7 0.6 - 1.2 mg/dL [facility] Sodium 144 136 - 145 mmol/L [facility] Potassium 3.6 3.5 - 4.5 mmol/L [facility] Chloride 111(H) 98 - 107 mmol/L [facility] CO2 22 22 - 29 mmol/L [facility] Glucose 113 70 - 115 mg/dL [facility] Calcium 8.3(L) 8.4 - 10.2 mg/dL [facility] Anion Gap 15 8 - 18 [facility] BUN/Creatinine Ratio 14 7 - 23 [facility] Osmolality Calculated 298 270 - 300 mOsm/kg [facility] eGFR >60 >60 mL/min/1.7 3 m2 [facility] Blood specimen (specimen) BLOOD SPECIMEN / Unknown 05/06/2017 3:12 AM [facility] 05/06/2017 3:42 AM [facility] Walter Robertson MD LAB - CHEMISTRY CELESTE ANGLIN [facility] Organization Address City/State/ZIP Co de Phone Number [address] [phone] * ECHO STRESS TEST W DOBUTAMINE (05/06/2017 12:00 AM [facility]) Anatomical Region Laterality Modality Other 05/06/2017 Walter Robertson MD ECHOCARDIOGRAPHY RAD IANT * ECHO STRESS COLOR FLOW AND DOPPLER (05/06/2017 12:00 AM [facility]) Anatomical Region Laterality Modality Other 05/06/2017 Walter Robertson MD ECHOCARDIOGRAPHY RAD IANT * EKG 12-LEAD (05/06/2017 12:00 AM [facility]) Only the most recent of3 resultswithin the time period is included. EKG [facility] Comment: Exam Date/Time: ?? May 06 [...] change was found Confirmed by BELINDA.KATI FLORES ([id number]), desk editor OLIVIA NICKERSON ([id number]) on 05/07/2017 1:26:08 PM Referred By: REFERRING NO ? Confirmed By:KATI COELHO 05/06/2017 Walter Robertson MD ECG ORDERABLES Performing Organization Address [facility] Co de Phone Number [facility] * GLUCOSE - POINT OF CARE (AMB) [facility] (05/05/2017 9:44 PM [facility]) Only the most recent of2 resultswithin the time period is included. Duong Liu MD LAB - POINT OF CARE ORDERABLES Performing Organization Address [facility] de Phone Number [facility] * GLUCOSE ACCUCHECK (05/05/2017 9:43 PM [facility]) Glucose, Fingerstick 96 70-115mg/d L mg/dL [facility] Comment:Manager Science: JR TRENTON 05/05/2017 9:43 PM [facility] Sky Llanos MD LAB - CHEMISTRY CELESTE ANGLIN Performing Organization Address [facility] de Phone Number [facility] * CT ANGIO CHEST PULM EMBOLISM (05/05/2017 9:32 PM [facility]) Anatomical Region Laterality Modality Chest Other Impressions 05/06/2017 9:00 AM [facility] IMPRESSION: 1. No evidence of pulmonary embolism. [...] of retropulsion. Dictated by Husam Zhou MD (vice president of finance). I, Dr. ESTRADA SANTOS M.D. have personally reviewed and interpreted this examination/study. This report was electronically signed by ESTRADA SANTOS M.D. ??on 05/06/2017 9:00 AM . Narrative 05/06/2017 9:00 AM [facility] EXAMINATION: Computed tomography (CT) of the chest [...] of retropulsion. Dictated by Husam Zhou MD (vice president of finance). I, Dr. ESTRADA SANTOS M.D. have personally reviewed and interpreted thisexamination/study. This report was electronically signed by ESTRADA SANTOS M.D. on05/06/2017 9:00 AM . Duong Liu MD CT ORDERABLES * CT HEAD WO CONTRAST (05/05/2017 6:53 PM [facility]) Anatomical Region Laterality Modality Head Other Impressions 05/06/2017 7:27 AM [facility] IMPRESSION: 1. No acute intracranial process. 2. Minimal mucosal thickening of the sphenoid sinus posteriorly on the right side. This report was electronically signed by BRODY WADE ??on 05/06/2017 7:27 AM . Narrative 05/06/2017 7:27 AM [facility] EXAMINATION: Computed tomography (CT) of the head [...] 2.7 1.9 - 3.7 g/dL (calc) [facility]) Albumin/Globulin Ratio 1.6 1.0 - 2.5 (calc) [facility]) Bilirubin Total 0.5 0.2 - 1.2 mg/dL [facility]) Bilirubin Direct 0.1 < OR = 0.2 mg/dL [facility]) Bilirubin Indirect 0.4 0.2 - 1.2 mg/dL (calc) [facility] ([facility]) Alkaline Phosphatase 99 40 - 115 U/L [facility] ([facility]) AST 15 10 - 35 U/L [facility]) ALT 18 9 - 46 U/L [facility] ([facility]) Comment: Test Performed at: [facility] [address] [place], [place] ??[id number] GRABIEL AGUIAR DO,MPH 11/22/2015 2:01 PM CDT 11/22/2015 2:02 PM CDT Julio Aaron APRN-TYPECASTING MACHINE OPERATOR LAB - CHEMISTR Y ORDERABLES Performing Organization Address City/[facility]/ZIP Co de Phone Number [facility] ([facility]) * CARBAMAZEPINE FREE (11/03/2013 12:50 PM CDT) Carbamezapine Free 1.2 1.0 - 3.0 mcg/mL [facility] ([facility]) Comment: Test Performed at: [employer] [facility]/[address] ??[phone] ROBERTO CARLOS UREÑA MD Venous blood specimen (specimen) 11/03/2013 12:50 PM CDT 11/03/2013 12:51 PM CDT Bharath Vera MD LAB - THERAPEUTIC DR REES MONITORING ORDERABLES [facility] ([facility]) * VALPROIC ACID LEVEL FREE (11/03/2013 12:50 PM CDT) Valproic Acid Free 8.7 4.8 - 17.3 mg/L [facility] ([facility]) Comment: Note: Non-linear drug binding properties result in the fraction of Free Valproic Acid increasing as total drug increases. The free fraction may range from 5% to 25% for the total drug range of 30-160 mg/L. ? Test Performed at: [facility] [facility] [id number] [place] [address] ?? ROBERTO CARLOS UREÑA MD Venous blood specimen (specimen) 11/03/2013 12:50 PM CDT 11/03/2013 12:51 PM CDT Bharath Vera MD LAB - THERAPEUTIC DR REES MONITORING ORDERABLES [employer] ([facility]) * PATHOLOGY TISSUE FOR DERMATOLOGY (12/17/2011 12:00 AM CDT) Only the most recent of2 resultswithin the time period is included. Result CASE: [id number] PATIENT: CHADD RECIO PATHOLOGIC DIAGNOSIS: Left chest: BASAL CELL CARCINOMA, INFILTRATIVE NOT PRESENT AT MARGIN DERMAL SCAR CLINICAL DATA: BCC Check margins. GROSS DESCRIPTION: Received is one formalin filled container labeled with the patient's name and designated left chest. The specimen consists of an ellipse measuring [id number] and is oriented with a suture/notch at [...] Katie Forrest M.D. Electronically signed 12/19/2011 3:40:40PM [facility] Comment: Performed at: Dermatopathology Laboratory [facility] Department of Dermatology [address] [place] [address] Phone number: [phone] Toll Free: [phone] FAX: [phone] 12/17/2011 12/18/2011 Omero Yang LAB - PATHOLOGY/CYTO LOGY ORDERABLES Performing Organization Address City/[facility]/ZIP Co de Phone Number [facility]. 5th Floor Lab [address] [phone] * LAB HISTORICAL RESULTS-ONBASE (05/14/2009) 05/14/2009 Historical Provider LAB - CHEMISTRY O RDERABLES Performing Organization Address City/[facility]/ZIP Co de Phone Number [facility] Care Teams Chemical Economist Relationship Specialty Start Date End Date Annabelle Donald MD [address] [phone] PCP - General 03/04/18
--- OUTSIDE RECORDS SUMMARY | 2024-03-22 23:47 | XMS_ITS | Encounter Summary ---
Author Organization [facility] Address [address] [facility] [place] [address] Care Team Providers Care Proposal Review Analyst Name Role Phone Annabelle Donald MD Primary Care Provider Reason for Visit * Reason Comments Refill Request Encounter Details Date Type Department Care Team (Late st Contact Info) Description 07/19/2020 Refill [facility] [address] [place] [address] Julio Aaron, SOFTWARE QUALITY TEST ENGINEER-RUG CUTTER HELPER [address] [place] [phone] Refill Request Social History Tobacco Use Types [...] monitoring documented in this encounter Care Teams Proposal Review Analyst Relationship Specialty Start Date End Date Annabelle Donald MD [address] [phone] PCP - General 03/04/18 documented as of this encounter
--- OUTSIDE RECORDS SUMMARY | 2024-03-22 23:47 | XMS_ITS | Encounter Summary ---
Author Organization [facility] Address [address] [place] [address] Care Team Providers Care Bliss Press Operator Name Role Phone Kelsie Toure ALFRED Primary Care Provider + Encounter Details Date Type Department Care Team (Late st Contact Info) Description 01/25/2017 Hospital Outpatient Visit Historic [facility] [address] [place] [phone] Julio Aaron APRN-CNP [address] [place] [phone] Discharge Disposition: Home or Self Care Social [...] (Other) January 28, 2017 Humza K Almita [address] [facility] [phone] Dear Humza Recio: The results of your [...] Acid Total 33(L) 50 - 100 mcg/mL [facility] Blood specimen (specimen) BLOOD SPECIMEN / Unknown 01/25/2017 2:58 PM CDT 01/25/2017 3:38 PM CDT Julio Aaron ELECTRICAL INTERN-HEALTH CENTER MANAGER LAB - CHEMISTR Y ORDERABLES [address] [phone] * CARBAMAZEPINE LEVEL TOTAL (01/25/2017 2:58 PM CDT) Pathologist [facility] Carbamazepine, trough 6.6 4.0 - 12.0 mcg/mL [facility] Blood specimen (specimen) BLOOD SPECIMEN / Unknown 01/25/2017 2:58 PM CDT 01/25/2017 3:38 PM CDT Julio Aaron APRN-HEALTH CENTER MANAGER LAB - CHEMISTR Y ORDERABLES Performing Organization Address City/[facility]/ZIP Co de Phone Number [address] [phone] * (ABNORMAL) COMPREHENSIVE METABOLIC PANEL (01/25/2017 2:58 PM CDT) BUN 9 7 - 26 mg/dL [facility] Creatinine 0.7 0.6 - 1.2 mg/dL [facility] Sodium 141 136 - 145 mmol/L [facility] Potassium 4.0 3.5 - 4.5 mmol/L [facility] Chloride 107 98 - 107 mmol/L [facility] CO2 26 22 - 29 mmol/L [facility] Glucose 90 70 - 115 mg/dL [facility] Calcium 9.6 8.4 - 10.2 mg/dL [facility] Protein Total 7.2 6.0 - 8.3 g/dL [facility] Albumin 3.4 3.4 - 5.0 g/dL [facility] Bilirubin Total 0.4 0.2 - 1.2 mg/dL [facility] Alkaline Phosphatase 119 40 - 150 Units/L [facility] ALT 21 0 - 55 Units/L [facility] AST 15 5 - 34 Units/L [facility] Anion Gap 12 8 - 18 [facility] BUN/Creatinine Ratio 13 7 - 23 [facility] Osmolality Calculated 290 270 - 300 mOsm/kg [facility] Albumin/Globulin Ratio 0.9(L) 1.1 - 2.3 [facility] eGFR >60 >60 mL/min/1.7 3 m2 [facility] Blood specimen (specimen) BLOOD SPECIMEN / Unknown 01/25/2017 2:58 PM CDT 01/25/2017 3:38 PM CDT Julio Aaron ELECTRICAL INTERN-HEALTH CENTER MANAGER LAB - CHEMISTR Y ORDERABLES [facility] [address] [place] [address] * CBC W AUTO DIFFERENTIAL (01/25/2017 2:58 PM CDT) WBC 5.8 3.5 - 10.5 10? 3 /uL [facility] RBC 5.08 4.30 - 5.70 10? 6 /uL [facility] Hemoglobin 15.8 13.5 - 17.5 g/dL [facility] Hematocrit 44.1 39.0 - 50.0 % [facility] MCV 86.8 81.0 - 97.0 fL [facility] MCH 31.1 28.0 - 34.0 pg [facility] MCHC 35.8 32.0 - 36.0 g/dL [facility] Platelet Count 185 150 - 400 10? 3 /uL [facility] RDW-SD 37.6 36.0 - 50.0 fL [facility] RDW-CV 11.9 11.2 - 14.8 % [facility] MPV 10.7 9.3 - 12.8 fL [facility] Neutrophils % 54.3 35.0 - 70.0 % [facility] Lymphocytes % 33.2 19.7 - 55.1 % [facility] Monocytes % 9.0 3.0 - 15.0 % [facility] Eosinophils % 2.8 0.0 - 6.0 % [facility] Basophil % 0.7 0.0 - 1.5 % [facility] Neutrophils Absolute 3.1 1.6 - 7.0 10? 3 /uL [facility] Lymphocyte Absolute 1.9 0.8 - 2.9 10? 3 /uL [facility] Monocytes Absolute 0.52 0.14 - 0.66 10? 3 /uL [facility] Eosinophils Absolute 0.16 0.00 - 0.22 10? 3 /uL [facility] Basophils Absolute 0.04 0.00 - 0.06 10? 3 /uL [facility] Immature Granulocytes % 0.2 0.0 - 1.0 % [facility] Blood specimen (specimen) BLOOD SPECIMEN / Unknown 01/25/2017 2:58 PM CDT 01/25/2017 3:38 PM CDT Julio Aaron APRN-HEALTH CENTER MANAGER LAB - HEMATOLO GY ORDERABLES Performing Organization Address [facility] de Phone Number [address] [phone] * CBC W AUTO DIFFERENTIAL (01/25/2017 2:58 PM CDT) Blood specimen (specimen) BLOOD SPECIMEN / Unknown 01/25/2017 2:58 PM CDT Narrative [facility] - 01/25/2017 3:44 PM CDT The following orders were created for panel order CBC w/Differential. Procedure ? Abnormality ? Status ? --------- ? ------ ? CBC WITH DIFFERENTIAL[[id number]] ? Normal ?Final result ? Please view results for these tests on the individual orders. 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
--- OUTSIDE RECORDS SUMMARY | 2024-03-22 23:47 | XMS_ITS | Encounter Summary ---
Author Organization [facility] Address [address] [place] [address] Care Team Providers Care Merchandise Clerk Name Role Phone Annabelle Donald MD Primary Care Provider Reason for Visit * Reason Onset Date Comments Refill Request 03/04/2018 Encounter Details Date Type Department Care Team (Late st Contact Info) Description 03/04/2018 Telephone [facility] [address] [place] [address] Julio Aaron APRN-CNP [address] [id number] Refill Request Social History Tobacco Use Types [...] Julio Aaron APRN-CNP - 03/04/2018 2:57 PM PHARMACIST AIDE Last time seen in clinic 01/2017. Refill request for VPA. Called pt and he reports that he needs refills. I advised him that he needs to be seen for further care for SZ if he is not seeing PCP for it. Scheduled for f/u on 03/11 at 3 pm. Will refills VPA. 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
--- OUTSIDE RECORDS SUMMARY | 2024-03-22 23:47 | XMS_ITS | Encounter Summary ---
Author Organization [facility] Address [address] [place] [address] Care Team Providers Care Fast Food Shift Supervisor Name Role Phone Kelsie Toure COMMAND CENTER OFFICER-TOOL HONING MACHINE SET UP OPERATOR Primary Care Provider + Encounter Details Date Type Department Care Team (Latest Contact Info) Description 05/05/2017 Emergency Department Historic [facility] EMERGENCY DEPARTMENT [address] [place] [address] Walter Robertson MD [address] [place] [phone] Discharge Disposition: Home or Self Care [...] Comments Blood Pressure 143/88 05/06/2017 5:31 PM WELLNESS DIRECTOR Pulse 77 05/06/2017 5:31 PM WELLNESS DIRECTOR Temperature 36.8 ??C (98.2 ??F) 05/06/2017 5:31 PM CS T Respiratory Rate 16 05/06/2017 5:31 PM WELLNESS DIRECTOR Oxygen Saturation 100% 05/06/2017 5:31 PM WELLNESS DIRECTOR Inhaled Oxygen Concentration - - Weight - - Height - - Body Mass Index - - documented in this encounter Discharge Summaries * Trish Bethea PA-C - 05/06/2017 4:12 PM CST Discharge Summaries Signed by Trish Bethea PA-C on 05/06/2017 4:17 PM Author: Trish Bethea PA-C Service: Emergency Author Type: Physician Rubber Stamp Dies Inspector Date of Service: 05/06/2017 4:12 PM Filed: 05/06/2017 4:17 PM Note Type: Discharge Summaries Status: Signed Multiple Wire Sawyer: Trish Bethea PA-C (Physician Rubber Stamp Dies Inspector) Cosigner: Walter Robertson MD at 05/06/2017 4:22 PM OBS/CDU Provider Discharge Summary Patient ID: Humza Recio [id number] 67 y.o. 1950 Admit date: 05/05/2017 Discharge [...] Procedure Abnormality Status --------- ------ CBC WITH DIFFERENTIAL[[id number]] Abnormal Final result Please view results for these tests on the individual orders. CBC W/ DIFFERENTIAL Narrative: The following orders were created for panel order CBC w Differential. Procedure Abnormality Status --------- ------ CBC WITH DIFFERENTIAL[[id number]] Abnormal Final result Please view results for [...] of retropulsion. Dictated by Husam Zhou MD (financial institution president). I, Dr. ESTRADA SANTOS M.D. have personally [...] Instructions None Signed: Trish Bethea PA-C 05/06/2017 NESS DIRECTOR documented in this encounter Consult Notes * Mario Sadler MD - 05/06/2017 8:47 AM CST Consults Signed by Mario Sadler MD on 05/06/2017 1:53 PM Author: Mario Sadler MD Service: Cardiology Author Type: Resident Date of Service: 05/06/2017 8:47 AM Filed: 05/06/2017 1:53 PM Note Type: Consults Status: Attested Multiple Wire Sawyer: Mario Sadler MD (Resident) Related Notes: Original [...] 97.7 ??F (36.5 ??C) (Oral) Resp 16 BsJ019% GENERAL: NAD, AAOx3, obese HEENT: no scleral [...] filling pressures. 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 Chest pain, resolved 2. COPD 3. HTN - chest pain unlikely to be anginal; possible related to COPD - received OSH cath records - normal [facility] - Stress test today is normal - plan to continue medical therapy; agree with starting statin; check lipid panel - add HCTZ to his home meds for BP; continue home quinipril Please see the fellow's note for further details. Chanell Davenport MD Large Engine Assemblerstem roller operator 05/06/2017 2:05 PM [facility] Inpatient Cardiology Consultation Humza Recio, 67 y.o. [...] not available STRESS: not available. CATH: 10/2016 [facility] [place] Mid disease in the RCA 25%. Normal EF 70% Nromal renal artery Mild elevation of right ad left heart pressures. Assessment/Recommendations: 1. Chest pain- possibly cardiac in nature with risk factors and age. Serial EKG's showed no acute UT. Troponins negative. Could be 2/2 to COPD [...] Case discussed with Dr. Davenport. Mario Sadler Teacher Of The Emotionally Disturbed. Update Echo findings 1. There is concentric [...] necessary. Will sign off. Mario Sadler MD Teacher Of The Emotionally Disturbed 05/06/2017 NESS DIRECTOR documented in this encounter ED Notes * Trish Bethea PA-C - 05/06/2017 8:14 AM CST ED Provider Notes Signed by Trish Bethea PA-C on 05/06/2017 4:12 PM Author: Tirsh Bethea PA-C Service: Emergency Author Type: Physician Rubber Stamp Dies Inspector Date of Service: 05/06/2017 8:14 AM Filed: 05/06/2017 4:12 PM Note Type: ED Provider Notes Status: Signed Multiple Wire Sawyer: Trish Bethea PA-C (Physician Rubber Stamp Dies Inspector) Cosigner: Walter Robertson MD at 05/06/2017 4:22 [...] ??? Hypertension Mother ??? None Known Father ([id number]) Current Facility-Administered Medications Medication Dose Route Frequency [...] Procedure Abnormality Status --------- ------ CBC WITH DIFFERENTIAL[[id number]] Abnormal Final result Please view results for these tests on the individual orders. CBC W/ DIFFERENTIAL Narrative: The following orders were created for panel order CBC w Differential. Procedure Abnormality Status --------- ------ CBC WITH DIFFERENTIAL[[id number]] Abnormal Final result Please view results for [...] to CDU Trish Bethea PA-C 05/06/17 1612 NESS DIRECTOR * Remy Real, COMMAND CENTER OFFICER-TOOL HONING MACHINE SET UP OPERATOR - 05/06/2017 1:33 AM CST ED Provider Notes Signed by Remy Real NP on 05/06/2017 7:32 AM Author: Remy Real NP Service: Emergency Author Type: Nurse Practitioner Date of Service: 05/06/2017 1:33 AM Filed: 05/06/2017 7:32 AM Note Type: ED Provider Notes Status: Signed Multiple Wire Sawyer: Remy Real NP (Nurse Practitioner) Cosigner: Walter [...] ??? Hypertension Mother ??? None Known Father ([id number]) Current Facility-Administered Medications Medication Dose Route Frequency [...] tenderness is recommended. CT Head - [facility] Number of Diagnoses or Management Options Chest [...] Procedure Abnormality Status --------- ------ CBC WITH DIFFERENTIAL[[id number]] Abnormal Final result Please view results for these tests on the individual orders. CBC W/ DIFFERENTIAL Narrative: The following orders were created for panel order CBC w Differential. Procedure Abnormality Status --------- ------ CBC WITH DIFFERENTIAL[[id number]] Please view results for these tests on [...] care to MAGDALENE Mckeon NP 05/06/17 0732 NESS DIRECTOR * Duong Liu MD - 05/05/2017 8:15 PM CST ED Provider Notes Signed by Duong Liu MD on 05/11/2017 5:42 PM Author: Duong Liu MD Service: Emergency Author Type: Physician Date of Service: 05/05/2017 8:15 PM Filed: 05/11/2017 5:42 PM Note Type: ED Provider Notes Status: Signed Multiple Wire Sawyer: Duong Liu MD (Physician) ED Attending Note [...] Procedure Abnormality Status --------- ------ CBC WITH DIFFERENTIAL[[id number]] Abnormal Final result Please view results for these tests on the individual orders. CBC W/ DIFFERENTIAL Narrative: The following orders were created for panel order CBC w Differential. Procedure Abnormality Status --------- ------ CBC WITH DIFFERENTIAL[[id number]] Abnormal Final result Please view results for [...] of retropulsion. Dictated by Husam Zhou MD (financial institution president). I, Dr. ESTRADA SANTOS M.D. have personally [...] Specialty: Nurse Practitioner Contact information: [address] [place] [id number] By signing my name below, I, Ela [...] Dr. Liu. Duong Liu MD 05/11/17 1742 NESS DIRECTOR documented in this encounter Plan of Treatment Not on file documented as of this encounter Procedures Procedure Name Priority Date/Time Associated Diagnosis Comments B-TYPE NATRIURETIC PEPTIDE STAT 05/06/2017 9:03 AM WELLNESS DIRECTOR TSH Routine 05/06/2017 9:03 AM WELLNESS DIRECTOR TROPONIN I Routine 05/06/2017 3:12 AM WELLNESS DIRECTOR BASIC METABOLIC PANEL (CALCIUM TOTAL) Routine 05/06/2017 3:12 AM WELLNESS DIRECTOR CBC W AUTO DIFFERENTIAL Routine 05/06/2017 3:12 AM WELLNESS DIRECTOR CBC W AUTO DIFFERENTIAL Routine 05/06/2017 3:12 AM WELLNESS DIRECTOR ECHO STRESS W DOBUTAMINE Routine 05/06/2017 12:00 AM WELLNESS DIRECTOR ECHO STRESS COLOR FLOW AND DOPPLER Routine 05/06/2017 12:00 AM WELLNESS DIRECTOR EKG 12-LEAD Routine 05/06/2017 12:00 AM WELLNESS DIRECTOR GLUCOSE - POINT OF CARE (AMB) [facility] Routine 05/05/2017 9:44 PM WELLNESS DIRECTOR GLUCOSE - POINT OF CARE (AMB) [facility] Routine 05/05/2017 9:44 PM WELLNESS DIRECTOR GLUCOSE ACCUCHECK Routine 05/05/2017 9:[address] ANGIO CHEST PULM EMBOLISM STAT 05/05/2017 9:32 PM WELLNESS DIRECTOR TROPONIN I STAT 05/05/2017 9:[address] HEAD WO CONTRAST STAT 05/05/2017 6 :53 PM WELLNESS DIRECTOR TROPONIN I STAT 05/05/2017 4:36 PM WELLNESS DIRECTOR TSH Routine 05/05/2017 4:36 PM WELLNESS DIRECTOR CBC W AUTO DIFFERENTIAL STAT 05/05/2017 4:36 PM WELLNESS DIRECTOR COMPREHENSIVE METABOLIC PANEL STAT 05/05/2017 4:36 PM WELLNESS DIRECTOR VALPROIC ACID LEVEL Routine 05/05/2017 4 :36 PM WELLNESS DIRECTOR CARBAMAZEPINE LEVEL TOTAL Routine 05/05/2017 4:36 PM WELLNESS DIRECTOR CBC W AUTO DIFFERENTIAL STAT 05/05/2017 4:36 PM WELLNESS DIRECTOR EKG 12-LEAD Routine 05/05/2017 12:00 AM WELLNESS DIRECTOR EKG 12-LEAD Routine 05/05/2017 12:00 AM WELLNESS DIRECTOR documented in this encounter Results * B-TYPE NATRIURETIC PEPTIDE (05/06/2017 9:03 AM WELLNESS DIRECTOR) BNP 78 See Comment pg/mL [facility] Comment: A decision threshold of 100 [...] BLOOD SPECIMEN / Unknown 05/06/2017 9:03 AM WELLNESS DIRECTOR 05/06/2017 9:12 AM WELLNESS DIRECTOR Walter Robertson MD LAB - CHEMISTRY CELESTE ANGLIN Performing Organization Address [facility] de Phone Number [address] [phone] * TSH (05/06/2017 9:03 AM WELLNESS DIRECTOR) TSH 0.445 0.350 - 4.940 uIU/mL [facility] Blood specimen (specimen) BLOOD SPECIMEN / Unknown 05/06/2017 9:03 AM WELLNESS DIRECTOR 05/06/2017 9:12 AM WELLNESS DIRECTOR Walter Robertson MD LAB - CHEMISTRY CELESTE ANGLIN Performing Organization Address [facility] de Phone Number [address] [phone] * TROPONIN I (05/06/2017 3:12 AM WELLNESS DIRECTOR) [facility] Troponin I 0.015 <0.032 ng/mL [facility] Blood specimen (specimen) BLOOD SPECIMEN / Unknown 05/06/2017 3:12 AM WELLNESS DIRECTOR 05/06/2017 3:42 AM WELLNESS DIRECTOR Walter Robertson MD LAB - CHEMISTRY CELESTE ANGLIN Performing Organization Address City/[facility]/ZIP Co de Phone Number [address] [phone] * (ABNORMAL) BASIC METABOLIC PANEL (CALCIUM TOTAL) (05/06/2017 3:12 AM WELLNESS DIRECTOR) [facility] BUN 10 7 - 26 mg/dL [facility] Creatinine 0.7 0.6 - 1.2 mg/dL [facility] Sodium 144 136 - 145 mmol/L [facility] Potassium 3.6 3.5 - 4.5 mmol/L [facility] Chloride 111(H) 98 - 107 mmol/L [facility] CO2 22 22 - 29 mmol/L [facility] Glucose 113 70 - 115 mg/dL [facility] Calcium 8.3(L) 8.4 - 10.2 mg/dL [facility] Anion Gap 15 8 - 18 [facility] BUN/Creatinine Ratio 14 7 - 23 [facility] Osmolality Calculated 298 270 - 300 mOsm/kg [facility] eGFR >60 >60 mL/min/1.7 3 m2 [facility] Blood specimen (specimen) BLOOD SPECIMEN / Unknown 05/06/2017 3:12 AM WELLNESS DIRECTOR 05/06/2017 3:42 AM WELLNESS DIRECTOR Walter Robertson MD LAB - CHEMISTRY CELESTE ANGLIN [address] [phone] * (ABNORMAL) CBC W AUTO DIFFERENTIAL (05/06/2017 3:12 AM WELLNESS DIRECTOR) WBC 6.6 3.5 - 10.5 10? 3 /uL [facility] RBC 4.41 4.30 - 5.70 10? 6 /uL [facility] Hemoglobin 13.6 13.5 - 17.5 g/dL [facility] Hematocrit 38.5(L) 39.0 - 50.0 % [facility] MCV 87.3 81.0 - 97.0 fL [facility] MCH 30.8 28.0 - 34.0 pg [facility] MCHC 35.3 32.0 - 36.0 g/dL [facility] Platelet Count 177 150 - 400 10? 3 /uL [facility] RDW-SD 40.3 36.0 - 50.0 fL [facility] RDW-CV 12.5 11.2 - 14.8 % [facility] MPV 10.7 9.3 - 12.8 fL [facility] nRBC Absolute 0.00 0 10? 3 /uL [facility] nRBC Auto 0.0 0 /100 WBC [facility] Neutrophils % 53.2 35.0 - 70.0 % [facility] Lymphocytes % 36.2 19.7 - 55.1 % [facility] Monocytes % 7.7 3.0 - 15.0 % [facility] Eosinophils % 2.6 0.0 - 6.0 % [facility] Basophil % 0.3 0.0 - 1.5 % [facility] Neutrophils Absolute 3.5 1.6 - 7.0 10? 3 /uL [facility] Lymphocyte Absolute 2.4 0.8 - 2.9 10? 3 /uL [facility] Monocytes Absolute 0.51 0.14 - 0.66 10? 3 /uL [facility] Eosinophils Absolute 0.17 0.00 - 0.22 10? 3 /uL [facility] Basophils Absolute 0.02 0.00 - 0.06 10? 3 /uL [facility] Immature Granulocytes % 0.2 0.0 - 1.0 % [facility] Blood specimen (specimen) BLOOD SPECIMEN / Unknown 05/06/2017 3:12 AM WELLNESS DIRECTOR 05/06/2017 3:42 AM WELLNESS DIRECTOR Walter Robertson MD LAB - HEMATOLOGY ORD ERABLES Performing Organization Address [facility]/ZIP Co de Phone Number [facility] [address] [phone] * CBC W AUTO DIFFERENTIAL (05/06/2017 3:12 AM WELLNESS DIRECTOR) Blood specimen (specimen) BLOOD SPECIMEN / Unknown 05/06/2017 3:12 AM WELLNESS DIRECTOR Narrative [facility] - 05/06/2017 3:45 AM WELLNESS DIRECTOR The following orders were created for panel order CBC w Differential. Procedure ? Abnormality ? Status ? --------- ? ------ ? CBC WITH DIFFERENTIAL[[id number]] ? Abnormal ?Final result ? Please view results for these tests on the individual orders. Walter Robertson MD LAB - HEMATOLOGY YOGESH PARKS Performing Organization Address [facility] Co de Phone Number [facility] [address] * ECHO STRESS TEST W DOBUTAMINE (05/06/2017 12:00 AM WELLNESS DIRECTOR) Anatomical Region Laterality Modality Other 05/06/2017 Walter Robertson MD ECHOCARDIOGRAPHY RAD IANT * ECHO STRESS COLOR FLOW AND DOPPLER (05/06/2017 12:00 AM WELLNESS DIRECTOR) Anatomical Region Laterality Modality Other 05/06/2017 Walter Robertson MD ECHOCARDIOGRAPHY RAD IANT * EKG 12-LEAD (05/06/2017 12:00 AM WELLNESS DIRECTOR) EKG [facility] Comment: Exam Date/Time: ?? May [...] was found Confirmed by BELINDA.KATI FLORES ([id number]), department editor OLIVIA NICKERSON ([id number]) on 05/07/2017 1:26:08 PM Referred By: REFERRING NO ? Confirmed By:KATI TREVINO. 05/06/2017 Walter Robertson MD ECG ORDERABLES Performing Organization Address City/[facility]/ZIP Co de Phone Number [facility] * GLUCOSE - POINT OF CARE (AMB) [facility] (05/05/2017 9:44 PM WELLNESS DIRECTOR) Duong Liu MD LAB - POINT OF CARE ORDERABLES Performing Organization Address [facility]/ZIP Co de Phone Number [facility] * GLUCOSE - POINT OF CARE (AMB) [facility] (05/05/2017 9:44 PM WELLNESS DIRECTOR) Glucose, Fingerstick defer to upload [facility] Capillary blood specimen (specimen) 05/05/2017 9:44 PM WELLNESS DIRECTOR Duong Liu MD LAB - POINT OF CARE ORDERABLES Performing Organization Address [facility]/ZIP Co de Phone Number [address] * GLUCOSE ACCUCHECK (05/05/2017 9:43 PM WELLNESS DIRECTOR) Glucose, Fingerstick 96 70-115mg/d L mg/dL [facility] (BEAKER) Comment:Pharmacy Services Representative: KING [place] 05/05/2017 9:43 PM WELLNESS DIRECTOR Sky Llanos MD LAB - CHEMISTRY [facility]LE[facility] ANGL[facility]) * CT ANGIO CHEST PULM EMBOLISM (05/05/2017 9:32 PM WELLNESS DIRECTOR) Anatomical Region Laterality Modality Chest Other Impressions 05/06/2017 9:00 AM WELLNESS DIRECTOR IMPRESSION: 1. No evidence of pulmonary embolism. [...] of retropulsion. Dictated by Husam Zhou MD (financial institution president). I, Dr. ESTRADA SANTOS M.D. have personally reviewed and interpreted this examination/study. This report was electronically signed by ESTRADA SANTOS M.D. ??on 05/06/2017 9:00 AM . Narrative 05/06/2017 9:00 AM WELLNESS DIRECTOR EXAMINATION: Computed tomography (CT) of the chest [...] of retropulsion. Dictated by Husam Zhou MD (financial institution president). I, Dr. ESTRADA SANTOS M.D. have personally reviewed and interpreted thisexamination/study. This report was electronically signed by ESTRADA SANTOS M.D. on05/06/2017 9:00 AM . Duong Liu MD CT ORDERABLES * TROPONIN I (05/05/2017 9:08 PM WELLNESS DIRECTOR) Troponin I <0.010 <0.032 ng/mL [facility] Blood specimen (specimen) BLOOD SPECIMEN / Unknown 05/05/2017 9:08 PM WELLNESS DIRECTOR 05/05/2017 9:13 PM WELLNESS DIRECTOR Duong Liu MD LAB - CHEMISTRY CELESTE ANGLIN [facility] Organization Address City/State/[facility] Co de Phone Number [address] [phone] * CT HEAD WO CONTRAST (05/05/2017 6:53 PM WELLNESS DIRECTOR) Anatomical Region Laterality Modality Head Other Impressions 05/06/2017 7:27 AM WELLNESS DIRECTOR IMPRESSION: 1. No acute intracranial process. 2. Minimal mucosal thickening of the sphenoid sinus posteriorly on the right side. This report was electronically signed by BRODY WADE ??on 05/06/2017 7:27 AM . Narrative 05/06/2017 7:27 AM WELLNESS DIRECTOR EXAMINATION: Computed tomography (CT) of the head [...] ORDERABLES * TROPONIN I (05/05/2017 4:36 PM WELLNESS DIRECTOR) Troponin I <0.010 <0.032 ng/mL [facility] Blood specimen (specimen) BLOOD SPECIMEN / Unknown 05/05/2017 4:36 PM WELLNESS DIRECTOR 05/05/2017 4:44 PM WELLNESS DIRECTOR Ronaldo Caslilas MD LAB - CHEMISTRY CELESTE ANGLIN [facility] Organization Address City/State/ZIP Co de Phone Number [address] [phone] * TSH (05/05/2017 4:36 PM WELLNESS DIRECTOR) TSH 0.406 0.350 - 4.940 uIU/mL [facility] Blood specimen (specimen) BLOOD SPECIMEN / Unknown 05/05/2017 4:36 PM WELLNESS DIRECTOR 05/05/2017 4:44 PM WELLNESS DIRECTOR Ronaldo Casillas MD LAB - CHEMISTRY CELESTE ANGLIN [facility] Organization Address City/State/ZIP Co de Phone Number [facility] [address] [phone] * (ABNORMAL) CBC W AUTO DIFFERENTIAL (05/05/2017 4:36 PM WELLNESS DIRECTOR) WBC 7.2 3.5 - 10.5 10? 3 /uL [facility] RBC 4.87 4.30 - 5.70 10? 6 /uL [facility] Hemoglobin 15.2 13.5 - 17.5 g/dL [facility] Hematocrit 43.1 39.0 - 50.0 % [facility] MCV 88.5 81.0 - 97.0 fL [facility] MCH 31.2 28.0 - 34.0 pg [facility] MCHC 35.3 32.0 - 36.0 g/dL [facility] Platelet Count 191 150 - 400 10? 3 /uL [facility] RDW-SD 39.2 36.0 - 50.0 fL [facility] RDW-CV 12.3 11.2 - 14.8 % [facility] MPV 10.4 9.3 - 12.8 fL [facility] nRBC Absolute 0.00 0 10? 3 /uL [facility] nRBC Auto 0.0 0 /100 WBC [facility] Neutrophils % 54.1 35.0 - 70.0 % [facility] Lymphocytes % 33.8 19.7 - 55.1 % [facility] Monocytes % 9.4 3.0 - 15.0 % [facility] Eosinophils % 2.1 0.0 - 6.0 % [facility] Basophil % 0.6 0.0 - 1.5 % [facility] Neutrophils Absolute 3.9 1.6 - 7.0 10? 3 /uL [facility] Lymphocyte Absolute 2.4 0.8 - 2.9 10? 3 /uL [facility] Monocytes Absolute 0.68(H) 0.14 - 0.66 10? 3 /uL [facility] Eosinophils Absolute 0.15 0.00 - 0.22 10? 3 /uL [facility] Basophils Absolute 0.04 0.00 - 0.06 10? 3 /uL [facility] Immature Granulocytes % 0.1 0.0 - 1.0 % [facility] Blood specimen (specimen) BLOOD SPECIMEN / Unknown 05/05/2017 4:36 PM WELLNESS DIRECTOR 05/05/2017 4:44 PM WELLNESS DIRECTOR Narrative Authorizing Provider Result Rabia Casillas MD LAB - HEMATOLOGY ORD ERABLES [address] [phone] * (ABNORMAL) VALPROIC ACID LEVEL (05/05/2017 4:36 PM WELLNESS DIRECTOR) Valproic Acid Total 21(L) 50 - 100 mcg/mL [facility] Blood specimen (specimen) BLOOD SPECIMEN / Unknown 05/05/2017 4:36 PM WELLNESS DIRECTOR 05/05/2017 4:44 PM WELLNESS DIRECTOR Narrative Authorizing Provider Result Rabia Casillas MD LAB - CHEMISTRY CELESTE ANGLIN Performing Organization Address City/[facility]/ZIP Co de Phone Number [address] [phone] * CARBAMAZEPINE LEVEL TOTAL (05/05/2017 4:36 PM WELLNESS DIRECTOR) Carbamazepine, trough 9.3 4.0 - 12.0 mcg/mL [facility] Blood specimen (specimen) BLOOD SPECIMEN / Unknown 05/05/2017 4:36 PM WELLNESS DIRECTOR 05/05/2017 4:44 PM WELLNESS DIRECTOR Narrative Authorizing Provider Result Rabia Casillas MD LAB - CHEMISTRY CELESTE ANGLIN [address] [phone] * COMPREHENSIVE METABOLIC PANEL (05/05/2017 4:36 PM WELLNESS DIRECTOR) BUN 15 7 - 26 mg/dL [facility] Creatinine 0.8 0.6 - 1.2 mg/dL [facility] Sodium 143 136 - 145 mmol/L [facility] Potassium 3.6 3.5 - 4.5 mmol/L [facility] Chloride 107 98 - 107 mmol/L [facility] CO2 23 22 - 29 mmol/L [facility] Glucose 87 70 - 115 mg/dL [facility] Calcium 9.1 8.4 - 10.2 mg/dL [facility] Protein Total 7.2 6.0 - 8.3 g/dL [facility] Albumin 3.7 3.4 - 5.0 g/dL [facility] Bilirubin Total 0.2 0.2 - 1.2 mg/dL [facility] Alkaline Phosphatase 104 40 - 150 Units/L [facility] ALT 18 0 - 55 Units/L [facility] AST 14 5 - 34 Units/L [facility] Anion Gap 17 8 - 18 [facility] BUN/Creatinine Ratio 19 7 - 23 [facility] Osmolality Calculated 296 270 - 300 mOsm/kg [facility] Albumin/Globulin Ratio 1.1 1.1 - 2.3 [facility] eGFR >60 >60 mL/min/1.7 3 m2 [facility] Blood specimen (specimen) BLOOD SPECIMEN / Unknown 05/05/2017 4:36 PM WELLNESS DIRECTOR 05/05/2017 4:44 PM WELLNESS DIRECTOR Ronaldo Casillas MD LAB - CHEMISTRY CELESTE ANGLIN [facility] Organization Address City/State/[facility] Co de Phone Number [address] [phone] * CBC W AUTO DIFFERENTIAL (05/05/2017 4:36 PM WELLNESS DIRECTOR) Blood specimen (specimen) BLOOD SPECIMEN / Unknown 05/05/2017 4:36 PM WELLNESS DIRECTOR Narrative [facility] - 05/05/2017 4:46 PM WELLNESS DIRECTOR The following orders were created for panel order CBC w Differential. Procedure ? Abnormality ? Status ? --------- ? ------ ? CBC WITH DIFFERENTIAL[[id number]] ? Abnormal ?Final result ? Please view results for these tests on the individual orders. Ronaldo Casillas MD LAB - HEMATOLOGY ORD ERABLES Performing Organization Address [facility] de Phone Number [place] [phone] * EKG 12-LEAD (05/05/2017 12:00 AM WELLNESS DIRECTOR) Pathologist [facility] Comment: Exam Date/Time: ?? May 05 [...] was found Confirmed by BELINDA.KATI FLORES ([id number]), department editor OLIVIA NICKERSON ([id number]) on 05/07/2017 1:26:05 PM Referred By: REFERRING NO ? Confirmed By:KATI COELHO 05/05/2017 Duong Liu MD ECG ORDERABLES Performing Organization Address [facility] de Phone Number [facility] * EKG 12-LEAD (05/05/2017 12:00 AM WELLNESS DIRECTOR) EKG [facility] Comment: Exam Date/Time: ?? May [...] previous ECGs available Confirmed by BELINDA.KATI FLORES ([id number]), department editor OLIVIA NICKERSON ([id number]) on 05/07/2017 1:25:22 PM Referred By: REFERRING NO ? 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
--- OUTSIDE RECORDS SUMMARY | 2024-03-22 23:47 | XMS_ITS | Clinical Summary ---
Author Organization [facility] [employer] Address [address] [place] [address] Care Team Providers Care Golf Coach Name Role Phone Annabelle Donald MD Primary Care Provider Source Comments [facility],non-owned Affiliates and Associated Physician Practices is amultiple site organization consisting of ambulatory clinics and hospital sitesin [place], [place], [place] and [place]. This disclosure is being madepursuant to the Care Everywhere program and may not contain all information available regarding this patient. Last updated 17.[facility] [employer] Allergies No known active allergies Medications * [...] Comments Blood Pressure 150/86 04/01/2019 3:08 PM GARAGE DOOR INSTALLER Pulse 75 04/01/2019 3:08 PM GARAGE DOOR INSTALLER Temperature 36.8 ??C (98.3 ??F) 03/11/2018 1:56 PM CS T Respiratory Rate 16 05/06/2017 5:31 PM GARAGE DOOR INSTALLER Oxygen Saturation 100% 05/06/2017 5:31 PM GARAGE DOOR INSTALLER Inhaled Oxygen Concentration - - Weight 100.2 kg (221 lb) 04/01/2019 3:08 PM GARAGE DOOR INSTALLER Height 177.8 cm (5' 10 ) 04/01/2019 3:08 PM GARAGE DOOR INSTALLER Body Mass Index 31.71 04/01/2019 3:08 PM GARAGE DOOR INSTALLER Plan of Treatment Health Maintenance Due Date [...] age to complete this topic Care Teams Golf Coach Relationship Specialty Start Date End Date Annabelle Donald MD [address] [phone] PCP - General 03/04/18
--- OUTSIDE RECORDS SUMMARY | 2024-03-22 23:47 | XMS_ITS | Encounter Summary ---
Author Organization [facility] Address [address] [place] [address] Care Team Providers Care Mechanical Adjuster Name Role Phone Annabelle Donald MD Primary Care Provider Reason for Visit * Reason Comments Follow-up seizures Encounter Details Date Type Department Care Team (Late st Contact Info) Description 03/11/2018 3:00 PM TRACK FITTER Office Visit [facility] Neurology [address] [place] [address] Julio Aaron, FOOD TECHNOLOGIST-CLASSIFIED ADVERTISING MANAGER [address] [place] [phone] 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, [...] Comments Blood Pressure 149/95 03/11/2018 1:56 PM TRACK FITTER Pulse 80 03/11/2018 1:56 PM TRACK FITTER Temperature 36.8 ??C (98.3 ??F) 03/11/2018 1:56 PM CS T Respiratory Rate - - Oxygen Saturation - - Inhaled Oxygen Concentration - - Weight 100.7 kg (222 lb) 03/11/2018 1:56 PM TRACK FITTER Height 177.8 cm (5' 10 ) 03/11/2018 1:56 PM TRACK FITTER Body Mass Index 31.85 03/11/2018 1:56 PM TRACK FITTER documented in this encounter Progress Notes * Julio Aaron, FOOD TECHNOLOGIST-CLASSIFIED ADVERTISING MANAGER - 03/11/2018 2:56 PM CST Neurology Clinic [...] medications well. Needs refills. 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 Reports chronic back pain, sees pain clinic and taking Peshtigo. Quit smoking one year ago. Denies any [...] Occupational History ??? 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 Smoking status: [...] up in 6 months. Julio Aaron, MSN, SCRATCH FINISHER-C Department of Neurology K FITTER documented in this encounter Plan of Treatment Not on file documented as of this encounter Results * CARBAMAZEPINE LEVEL TOTAL (04/01/2019 4:06 PM TRACK FITTER) Carbamazepine, trough 7.9 4.0 - 12.0 mcg/mL 04/01/2019 5:11 PM TRACK FITTER [facility] Blood BLOOD SPECIMEN / Unknown Lab Venipuncture / Unknown 04/01/2019 4:06 PM TRACK FITTER 04/01/2019 4:12 PM TRACK FITTER Julio MAGDALENOCLASSIFIED ADVERTISING MANAGER LAB - CHEMISTR Y ORDERABLES [address] [phone] * (ABNORMAL) VALPROIC ACID LEVEL (04/01/2019 4:06 PM TRACK FITTER) Valproic Acid Total 19(L) 50 - 100 mcg/mL 04/01/2019 5:08 PM TRACK FITTER [facility] Blood BLOOD SPECIMEN / Unknown Lab Venipuncture / Unknown 04/01/2019 4:06 PM TRACK FITTER 04/01/2019 4:12 PM [facility] Julio Aaron FOOD TECHNOLOGIST-CLASSIFIED ADVERTISING MANAGER LAB - CHEMISTR Y ORDERABLES [facility] [address] [place] [address] * (ABNORMAL) COMPREHENSIVE METABOLIC PANEL (04/01/2019 4:06 PM TRACK FITTER) BUN 12 7 - 26 mg/dL 04/01/2019 5:11 PM [facility] Creatinine 0.8 0.6 - 1.2 mg/dL 04/01/2019 5:11 PM [facility] Sodium 145 136 - 145 mmol/L 04/01/2019 5:11 PM [facility] Potassium 3.8 3.5 - 4.5 mmol/L 04/01/2019 5:11 PM [facility] Chloride 105 98 - 107 mmol/L 04/01/2019 5:11 PM [facility] CO2 29 22 - 29 mmol/L 04/01/2019 5:11 PM [facility] Glucose 95 70 - 115 mg/dL 04/01/2019 5:11 PM [facility] Calcium 9.5 8.4 - 10.2 mg/dL 04/01/2019 5:11 PM [facility] Protein Total 7.4 6.0 - 8.3 g/dL 04/01/2019 5:11 PM [facility] Albumin 3.7 3.4 - 5.0 g/dL 04/01/2019 5:11 PM [facility] Bilirubin Total 0.2 0.2 - 1.2 mg/dL 04/01/2019 5:11 PM [facility] Alkaline Phosphatase 99 40 - 150 Units/L 04/01/2019 5:11 PM [facility] ALT 20 0 - 55 Units/L 04/01/2019 5:11 PM [facility] AST 16 5 - 34 Units/L 04/01/2019 5:11 PM [facility] Anion Gap 15 8 - 18 04/01/2019 5:11 PM [facility] BUN/Creatinine Ratio 15 7 - 23 04/01/2019 5:11 PM [facility] Osmolality Calculated 300 270 - 300 mOsm/kg 04/01/2019 5:11 PM [facility] Albumin/Globulin Ratio 1.0(L) 1.1 - 2.3 04/01/2019 5:11 PM [facility] eGFR >60 >60 mL/min/1.7 3 m2 04/01/2019 5:11 PM [facility] Blood BLOOD SPECIMEN / Unknown Lab Venipuncture / Unknown 04/01/2019 4:06 PM TRACK FITTER 04/01/2019 4:12 PM TRACK FITTER Julio Aaron FOOD TECHNOLOGIST-CLASSIFIED ADVERTISING MANAGER LAB - CHEMISTR Y ORDERABLES [facility] [address] [place] [address] * CBC WITH DIFFERENTIAL (04/01/2019 4:06 PM [facility]) WBC 7.2 3.5 - 10.5 10? 3 /uL 04/01/2019 4:32 PM [facility] RBC 5.04 4.30 - 5.70 10? 6 /uL 04/01/2019 4:32 PM [facility] Hemoglobin 15.4 13.5 - 17.5 g/dL 04/01/2019 4:32 PM [facility] Hematocrit 44.6 39.0 - 50.0 % 04/01/2019 4:32 PM [facility] MCV 88.5 81.0 - 97.0 fL 04/01/2019 4:32 PM [facility] MCH 30.6 28.0 - 34.0 pg 04/01/2019 4:32 PM [facility] MCHC 34.5 32.0 - 36.0 g/dL 04/01/2019 4:32 PM [facility] Platelet Count 222 150 - 400 10? 3 /uL 04/01/2019 4:32 PM [facility] RDW-SD 37.6 36.0 - 50.0 fL 04/01/2019 4:32 PM [facility] RDW-CV 11.8 11.2 - 14.8 % 04/01/2019 4:32 PM [facility] MPV 10.4 9.3 - 12.8 fL 04/01/2019 4:32 PM [facility] nRBC Absolute 0.00 0 10? 3 /uL 04/01/2019 4:32 PM [facility] nRBC Auto 0.0 0 /100 WBC 04/01/2019 4:32 PM [facility] Neutrophils % 57.6 35.0 - 70.0 % 04/01/2019 4:32 PM [facility] Lymphocytes % 31.2 19.7 - 55.1 % 04/01/2019 4:32 PM [facility] Monocytes % 7.6 3.0 - 15.0 % 04/01/2019 4:32 PM [facility] Eosinophils % 2.5 0.0 - 6.0 % 04/01/2019 4:32 PM [facility] Basophil % 0.8 0.0 - 1.5 % 04/01/2019 4:32 PM [facility] Neutrophils Absolute 4.2 1.6 - 7.0 10? 3 /uL 04/01/2019 4:32 PM [facility] Lymphocyte Absolute 2.3 0.8 - 2.9 10? 3 /uL 04/01/2019 4:32 PM [facility] Monocytes Absolute 0.55 0.14 - 0.66 10? 3 /uL 04/01/2019 4:32 PM [facility] Eosinophils Absolute 0.18 0.00 - 0.45 10? 3 /uL 04/01/2019 4:32 PM [facility] Basophils Absolute 0.06 0.00 - 0.06 10? 3 /uL 04/01/2019 4:32 PM [facility] Immature Granulocytes % 0.3 0.0 - 1.0 % 04/01/2019 4:32 PM [facility] Blood BLOOD SPECIMEN / Unknown Lab Venipuncture / Unknown 04/01/2019 4:06 PM TRACK FITTER 04/01/2019 4:12 PM [facility] Julio Aaron FOOD TECHNOLOGIST-CLASSIFIED ADVERTISING MANAGER LAB - HEMATOLO GY ORDERABLES [address] [phone] documented in this encounter Visit Diagnoses Diagnosis 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, notintrac, wo status (HCC)- Primary Localization-related (focal) (partial) epilepsy and epileptic syndromes with complex partial seizures, without mention of intractable epilepsy Essential (primary) hypertension Unspecified essential hypertension Medication monitoring encounter Encounter for therapeutic drug monitoring documented in this encounter Care Teams Mechanical Adjuster Relationship Specialty Start Date End Date Annabelle Donald MD [address] [phone] PCP - General 03/04/18 documented as of this encounter
--- OUTSIDE RECORDS SUMMARY | 2024-03-22 23:47 | XMS_ITS | Encounter Summary ---
Author Organization [facility] Address [address] [facility] [place] [address] Care Team Providers Care Blindstitch Machine Operator Name Role Phone Annabelle Donald MD Primary Care Provider Reason for Visit * Reason Onset Date Comments MEDICATION REFILL 02/05/2019 Encounter Details Date Type Department Care Team (Late st Contact Info) Description 02/05/2019 Refill [facility] Neurology [address] [place] [address] Julio Aaron, SAMPLE MAKER ORIGINAL-PERSONAL CARE AID [address] [place] [phone] MEDICATION REFILL Social History Tobacco Use Types [...] w cmplx part sz, notintrac, wo status ([facility]) Localization-related (focal) (partial) epilepsy and epileptic syndromes with complex partial seizures, without mention of intractable epilepsy Essential (primary) hypertension Unspecified essential hypertension Medication monitoring encounter Encounter for therapeutic drug monitoring documented in this encounter Care Teams Blindstitch Machine Operator Relationship Specialty Start Date End Date Annabelle Donald MD [address] [phone] PCP - General 03/04/18 documented as of this encounter
--- OUTSIDE RECORDS SUMMARY | 2024-03-22 23:47 | XMS_ITS | Encounter Summary ---
Author Organization [facility] Address [address] [facility] [place] [address] Care Team Providers Care Fish Peddler Name Role Phone Kelsie Toure MISTY-SUPERINTENDENT SEED MILL Primary Care Provider + Encounter Details Date Type Department Care Team (Latest Contact Info) Description 05/06/2017 Hospital Outpatient Visit [facility] [address] [place] [phone] Discharge Disposition: Home or Self Care Social [...] Comments Blood Pressure 147/93 05/06/2017 11:20 AM MACHINING TECHNICIAN Pulse - - Temperature - - Respiratory Rate 16 05/06/2017 10:00 AM MACHINING TECHNICIAN Oxygen Saturation - - Inhaled Oxygen Concentration - - Weight 98 kg (216 lb) 05/06/2017 10:00 AM MACHINING TECHNICIAN Height 177.8 cm (5' 10 ) 05/06/2017 10:00 AM MACHINING TECHNICIAN Body Mass Index 30.99 05/06/2017 10:00 AM MACHINING TECHNICIAN documented in this encounter Procedure Notes * Virginia Ritchie MD - 05/06/2017 11:25 AM CST Procedures Signed by Deborah Dangelo RN on 05/06/2017 11:31 AM Author: Deborah Dangelo RN Service: (none) Author Type: Registered Nurse Date of Service: 05/06/2017 11:25 AM Filed: 05/06/2017 11:31 AM Note Type: Procedures Status: Signed Concert Pianist: Deborah Dangelo RN (Registered Nurse) Patient discharged from the Echo Lab to [facility]. Okay to discharge the patient per Dr. Marietta Gay, Pl Sql Programmer. Patient has no complaints. Denies chest pain. Vital signs at baseline. * Virginia Ritchie MD - 05/06/2017 9:45 AM CST Procedures Signed by Deborah Dangelo RN on 05/06/2017 11:33 AM Author: Deborah Dangelo RN Service: (none) Author Type: Registered Nurse Date of Service: 05/06/2017 9:45 AM Filed: 05/06/2017 11:33 AM Note Type: Procedures Status: Addendum Concert Pianist: Deborah Dangelo RN (Registered Nurse) Related Notes: Original Note by Deborah Dangelo RN (Registered Nurse) filed at 05/06/2017 10:14 AM Patient arrived to the Echo Lab from [facility]. Explained the Dobutamine Stress Test to the [...] on filedocumented in this encounter Care Teams Fish Peddler Relationship Specialty Start Date End Date Kelsie Toure APRN-GONZALO [address] [place] [address] PCP - General Nurse Practitioner 08/13/16 03/03/18 documented as of this encounter
--- OUTSIDE RECORDS SUMMARY | 2024-03-22 23:47 | XMS_ITS | Encounter Summary ---
Author Organization [facility] Address [address] [facility] [address] Care Team Providers Care Ball Sorter Name Role Phone Annabelle Donald MD Primary Care Provider Encounter Details Date Type Department Care Team (Late st Contact Info) Description 06/20/2020 Orders Only [facility] - COVID Vax [address] [place] [address] Oren Locke MD [address] [phone] Need for vaccination Social History [...] disease documented in this encounter Care Teams Ball Sorter Relationship Specialty Start Date End Date Annabelle Donald MD [address] [phone] PCP - General 03/04/18 documented as of this encounter
--- OUTSIDE RECORDS SUMMARY | 2024-03-22 23:47 | XMS_ITS | Encounter Summary ---
Author Organization [facility] Address [address] [facility] [place] [address] Care Team Providers Care Associate Doctor Name Role Phone Annabelle Donald MD Primary Care Provider Reason for Visit * Reason Comments Refill Request Encounter Details Date Type Department Care Team (Late st Contact Info) Description 07/31/2021 Refill [facility] [address] [place] [address], [place] [phone] Julio Aaron, GUSSET FOLDER-SUPERVISOR DOCK [address] [place] [address] [place] [phone] Refill Request Social History Tobacco Use Types [...] w cmplx part sz, notintrac, wo status ([facility]) Localization-related (focal) (partial) epilepsy and epileptic syndromes with complex partial seizures, without mention of intractable epilepsy Essential (primary) hypertension Unspecified essential hypertension Medication monitoring encounter Encounter for therapeutic drug monitoring documented in this encounter Care Teams Associate Doctor Relationship Specialty Start Date End Date Annabelle Donald MD [address] [phone] PCP - General 03/04/18 documented as of this encounter
--- OUTSIDE RECORDS SUMMARY | 2024-03-22 23:47 | XMS_ITS | Encounter Summary ---
Author Organization [facility] Address [address] [place] [address] Care Team Providers Care Corsetier Name Role Phone Annabelle Donald MD Primary Care Provider Reason for Visit * Reason Comments Refill Request Encounter Details Date Type Department Care Team (Late st Contact Info) Description 10/25/2020 Refill [facility] [address] [place] [address] Julio Aaron, KITCHEN HAND-LOADING UNIT TOOL SETTER [address] [place] [phone] Refill Request Social History Tobacco Use Types [...] monitoring documented in this encounter Care Teams Corsetier Relationship Specialty Start Date End Date Annabelle Donald MD [address] [phone] PCP - General 03/04/18 documented as of this encounter
--- OUTSIDE RECORDS SUMMARY | 2024-03-22 23:47 | XMS_ITS | Encounter Summary ---
Author Organization [facility] Address [address] [facility] [place] [address] Care Team Providers Care Microfilm Duplicating Unit Supervisor Name Role Phone Annabelle Donald MD Primary Care Provider Reason for Visit * Reason Comments Follow-up Encounter Details Date Type Department Care Team (Late st Contact Info) Description 08/02/2020 1:30 PM CDT Video Visit [facility] Neurology [address] 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 Phone of [facility] [employer] number given to . Meds refilled. Julio Aaron, MSN, ASSISTANT RESEARCH SCIENTIST-C Department of Neurology documented in this encounter [...] monitoring documented in this encounter Care Teams Microfilm Duplicating Unit Supervisor Relationship Specialty Start Date End Date Annabelle Donald MD [address] [phone] PCP - General 03/04/18 documented as of this encounter
--- OUTSIDE RECORDS SUMMARY | 2024-03-22 23:47 | XMS_ITS | Encounter Summary ---
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 Patient drives. 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 Has a h/o chronic back pain and [...] ??? 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 Financial resource strain: Not [...] file Gets together: Not on file Attends muslim service: Not on file Active member of [...] up in 3 months. Julio Aaron, MSN, GOODYEAR WELTER-C Department of Neurology IELD SERVICES OFFICER * Rosetta Mckee - 04/01/2019 3:12 PM CST Pt did not have updated medication list with him at this appointment and was unsure what he currently is taking. Advised pt to bring list to next appointment. Rosetta Mckee IELD SERVICES OFFICER documented in this encounter Plan of Treatment Not on file documented as of this encounter Results * (ABNORMAL) VALPROIC ACID FREE+TOTAL PANEL (04/01/2019 4:06 PM AIRFIELD SERVICES OFFICER) Valproic Acid Free <7(L) 7 - 23 ug/mL 04/03/2019 3:17 PM AIRFIELD SERVICES OFFICER [facility] ([facility]) Valproic Acid Total 20(L) 50 - 125 ug/mL 04/03/2019 3:17 PM AIRFIELD SERVICES OFFICER [facility] [[email or web address]] [employer] ([facility]) Valproic Acid % Free Not Applicable 5 - 18 % 04/03/2019 3:17 PM AIRFIELD SERVICES OFFICER [facility] [[email or web address]] [employer] ([facility]) Comment: INTERPRETIVE INFORMATION: VPA-percent Free [...] include headache, somnolence and dizziness. Performed by [employer], [address] [place] [address] [email or web address], Rehan Zamarripa MD, Lab. 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
--- OUTSIDE RECORDS SUMMARY | 2024-03-22 23:47 | XMS_ITS | CONTINUITY OF CARE DOCUMENT ---
Author Name cyndi hanna Address Unknown Organization [facility] Address [address] [place] [address] Phone [phone] Care Team Providers Care Long Term Care Social Worker Name Role Phone Angelique Abbasi MD Unavailable WAGNER DONALD MD Unavailable WAGNER DONALD MD Unavailable [phone] PROBLEMS Condition Status Date Provider Notes Shortness of breath completed - Gonzalo Clark Obesity active Ramsey Rodriguez MD Tobacco use quit active Ramsey Rodriguez MD Back Pain active Ramsey Rodriguez MD COPD active Ramsey Rodriguez MD Hypertension active Ramsey Rodriguez MD Seizures active Ramsey Rodriguez MD CAD active Chencho Cosby MD Retroperitoneal bleeding active Chencho leung MD fatty liver active Chencho Cosby MD Hyperlipidemia active Chencho Cosby MD Chest pain - pleuritic completed 9 - Gonzalo Clark Dizziness active Gonzalo Clark Orthostatic hypotension active Gonzalo enrique Snoring active Angelique Abbasi MD CAD active Angelique Abbasi MD Preop cardiovasc. examination active Michael Abbasi MD Cardiovascular Condition Screening active Angelique Abbasi MD Chest pain completed - Ramsey Rodriguez MD ENCOUNTERS Date Type Provider Location Encounter Diag nosis - In-person encounter Office Visit Angelique Abbasi MD [facility] - [facility]-person encounter Office Visit Angelique Abbasi MD [facility] Preop cardiovasc. examinationCardiovascular Condition Screening - In-person encounter Office Visit Angelique Abbasi MD [facility] - In-person encounter Office Visit Angelique Abbasi MD [facility] SnoringCAD - In-person encounter Office Visit Ramsey Rodriguez MD [facility] - In-person encounter Office Visit Ramsey Rodriguez MD [facility] Shortness of breathChest pain - pleuriticDizzinessOrthostatic hypotension - In-person encounter Office Visit Ramsey Rodriguez MD [facility] - In-person encounter Office Visit Ramsey Rodriguez MD [facility] Chest pain - In-person encounter Office Visit Octavio Dejesus MD [facility] - In-person encounter Office Visit Ramsey Rodriguez MD [facility] - In-person encounter Office Visit Chencho Cosby MD [facility] CADRetroperitoneal bleedingfatty liverHyperlipidemia - In-person encounter Office Visit Ramsey Rodriguez MD [facility] - In-person encounter Office Visit Ramsey Rodriguez MD [facility] ObesityTobacco use quitBack PainCOPDHypertensionSeizures VITAL SIGNS Date Observation Value Provider Body Mass Index (Ratio) 29.99 kg/m2 Gabriela Abbasi MD blood pressure, diastolic 88 mm[Hg] Rosa Lopez blood pressure, systolic 135 mm[Hg] Vip in [facility] pulse rate 90 /min [facility] respiratory rate E&M 16 /min Aaron Iraida [facility] oxygen saturation, oximetry 96 % [facility] weight E&M 209 [lb_av] [facility] blood pressure, cuff size regular iva [facility] height E&M 70 [in_i] [facility] Body Mass Index (Ratio) 30.85 kg/m2 Gabriela Abbasi MD blood pressure, diastolic 108 mm[Hg] [employer] blood pressure, systolic 171 mm[Hg] Jennifer blood pressure, cuff size regular Angel [facility] blood pressure, diastolic 108 mm[Hg] Angel [facility] blood pressure, systolic 171 mm[Hg] [facility] pulse rate 84 /min Orlin respiratory rate E&M 16 /min [facility] oxygen saturation, oximetry 94 % [facility] weight E&M 215 [lb_av] Orlin y height E&M 70 [in_i] [facility] y Body Mass Index (Ratio) 30.99 kg/m2 Christopher Iorfida blood pressure, diastolic 100 mm[Hg] Li [employer] blood pressure, systolic 154 mm[Hg] Jennifer [employer]Logic blood pressure, cuff size regular Fa [facility] blood pressure, diastolic 100 mm[Hg] Fa [facility] blood pressure, systolic 154 mm[Hg] Jace [facility] pulse rate 73 /min Carmen Helton oxygen saturation, oximetry 95 % Carmen Jewett respiratory rate E&M 16 /min Carmen owen [...] Body Mass Index (Ratio) 33.86 kg/m2 [facility] blood pressure, cuff size large Ke kahlil Montenegro blood pressure, diastolic 82 mm[Hg] Ke tiffanycecilio [facility] blood pressure, systolic 136 mm[Hg] Lawrence Monten[place] oxygen saturation, oximetry 96 % Viri Little respiratory rate E&M 16 /min Viri barakat pulse rate 75 /min Viri Mueller [facility] weight E&M 236 [lb_av] Viri Mueller [facility] height E&M 70 [in_i] Viri Muellre [facility] Body Mass Index (Ratio) 33.00 kg/m2 Christopher godinez [facility] Diastolic BP Standing #2 80 mm[Hg] Nancy jacobs [facility] Systolic BP Standing #2 132 mm[Hg] Christopher godinez [facility] blood pressure, diastolic, sitting 90 mm[ Hg] Gonzalo [facility] blood pressure, systolic, sitting 148 mm[ Hg] [facility] blood pressure, diastolic 90 mm[Hg] Júnior MujicaSedrick [...] pressure, diastolic, right arm 80 m m[Hg] [facility] blood pressure, systolic, right arm 140 m m[Hg] Vanessa Dyer blood pressure, diastolic 80 mm[Hg] Ki [facility] blood pressure, systolic 140 mm[Hg] Kil [facility] oxygen saturation, oximetry 95 % [facility] respiratory rate E&M 18 /min [facility] rate 74 /min [facility] weight E&M 217 [lb_av] [facility] height E&M 70 [in_i] Vanessa Dyer [...] jamesalekseyerwin pulse rate 70 /min Viri Mueller [facility] weight E&M 220 [lb_av] Viri Mueller tanisha [...] Little respiratory rate E&M 20 /min Viri jamesalekseyrewin pulse rate 72 /min Viri Mueller tanishaer [...] Gonzalo Clark thyroxine, serum, free 1.08 ng/dL [facility] platelet count 221 10*3/mm3 [facility] platelet count 221 10*3/uL [facility] red blood cell distribution width 11.9 % [facility] mean corpuscular hemoglobin concentration, RBC 33.8 g/dL [facility] mean corpuscular hemoglobin, RBC 30.6 pg [facility] mean corpuscular volume, RBC 90.3 fL [facility] hematocrit, blood 45.5 % [facility] hemoglobin, blood 15.4 g/dL [facility] erythrocyte (RBC) count 5.04 10*6/mm3 [facility] leukocyte count, blood 6.8 10*3/mm3 [facility] protein, total, serum 7.4 g/dL [facility] albumin, serum 4.4 g/dL [facility] bilirubin, serum, total 0.40 mg/dL [facility] alkaline phosphatase, serum 100 1/L [facility] alanine aminotransferase (SGPT), serum 24 1/L [facility] aspartate aminotransferase (SGOT), serum 26 1/L Ramsey Rodriguez MD calcium, serum 9.9 mg/dL [facility] blood glucose, random 101 mg/dL [facility] creatinine, serum 0.83 mg/dL [facility] urea nitrogen, blood 22 mg/dL [facility] carbon dioxide, serum, total 27 mmol/L [facility] chloride, serum 104 mmol/L [facility] potassium, serum 4.0 mmol/L [facility] sodium, serum 142 mmol/L [facility] very low density lipoproteins 27.4 mg/dL [employer] 5.0 - 40.0 LDL/HDL (low-density lipoprotein/high-de nsity lipoprotein) ratio 3.0 RATIO [facility] - lipoprotein, beta, serum, point, quantitative, calculated 140.6 (?) [facility] 0.0 - 100.0 High HDL cholesterol, serum 47.0 mg/dL [employer] 35.0 - 55.0 cholesterol, serum 215.0 mg/dL [facility] 0.0 - 200.0 High triglyceride, serum, fasting 137.0 mg/dL [facility] 0.0 - 150.0 urea nitrogen/creatinine ratio, serum 21.4 [facility] - Estimated Glomerular Filtration Rate (calc) [...] cell distribution width, size density 41.[address] [facility] - immature granulocytes, percentage of total cells, blood 0.2 % [facility] - nucleated red blood cells as percent of blood leukocytes 0.9 % [facility] - red blood cell (erythrocyte) count, per high power field 0.1 10*3/UL [facility] - eosinophils as percent of blood leukocytes 3.6 % [facility] - neutrophils as percent of blood leukocytes 54.4 % [facility] - Absolute Neutrophils 3.6 CELLS/UL [employer] [...] cell distribution width, size density 40.[address] [facility] - immature granulocytes, percentage of total cells, blood 0.5 % [facility] - nucleated red blood cells as percent of blood leukocytes 0.0 % [facility] - red blood cell (erythrocyte) count, per high power field 0.0 10*3/UL [facility] - eosinophils as percent of blood leukocytes 3.1 % [facility] - neutrophils as percent of blood leukocytes 54.4 % [facility] - Absolute Neutrophils 3.3 CELLS/UL [facility] 1.5 - 7.8 basophils as percent of blood leukocytes 0.8 % [facility] - Absolute Basophils 0.1 CELLS/UL [employer] 0.0 - 0.2 monocytes as percent of blood leukocytes 9.0 % [facility] - Absolute Monocytes 0.6 CELLS/UL [employer] 0.2 - 1.0 lymphocytes as percent of blood leukocytes 32.2 % [facility] - Absolute Lymphocytes 2.0 CELLS/UL [employer] [...] by mouth once a day 05/04 Rocío Hosue PERCOCET 5-325 MG ORAL TABLET completed ONE FOUR TIMES A DAY NEEDED 11/08 - 10/27 Shayla Mattosn Men's Multivitamin 400-20-300 mcg tablet active Take [...] NP smoking, year quit 2016 Shaina Zendejas [employer] SALES REPRESENTATIVE cigarette use yes Shaina Blakeri [employer] SALES REPRESENTATIVE smoking status Former smoker Shaina Blake ri [employer] SALES REPRESENTATIVE smoking, year quit 2016 Carmen Alvarado ler [...] E&M revi ewed - no changes required [facility] smoking, year quit 2017 Viri Goodman enenfelder cigarette use yes Viri Hadleyrubennf [facility] smoking status Former smoker Viri Edward nfelder social history reviewed E&M revi ewed - no changes required [facility] smoking, year quit 2017 Shayla O' Sedrick cigarette use yes Shayla O'Sedrick smoking status Former smoker Shayla O'Nena l social history reviewed E&M revi ewed - no changes required [facility] smoking, year quit 2017 Katie sotelo cigarette [...] History: Usman girard is a former smoker. Chencho Cosby MD social history reviewed E&M revi ewed - no changes required Chencho Cosby MD smoking, year quit 2016 Viri ayers cigarette use yes Viri Tressa dinero smoking status Former smoker Viri Ortizliss mark social history reviewed E&M revi ewed - no changes required Ramsey Rodriguez MD smoking, year quit 2016 Viri ayers cigarette use yes Virijuan dinero smoking status Former smoker Viri Ortizilss mark social history reviewed E&M revi ewed - no changes required Ramsey Rodriguez MD social history E&M Smoking Histo ry: Usman girard is a former smoker. Gonzalo Clark smoking, year quit 2016 Viri Rex ayers cigarette use yes Viri Tressa dinero smoking status Former smoker Viri Ortizliss [facility] FUNCTIONAL STATUS Date Observation Value Provider HRA, CV Assess/Plan, Angina (inactive) Management Plan continue current therapy Shaina Babcock NP HRA, CV Assess/Plan, Angina (inactive) Management Plan continue current therapy Gonzalo [facility] HRA, CV Assess/Plan, Angina (inactive) Management Plan continue current therapy Gonzalo [facility] HRA, CV Assess/Plan, Angina (inactive) Management Plan continue current therapy Ramsey Rodriguez MD HRA, CV Assess/Plan, Angina (inactive) Management Plan continue current therapy Gonzalo [facility] HRA, CV Assess/Plan, Angina (inactive) Management Plan continue current therapy Ramsey Rodriguez MD HRA, CV Assess/Plan, Angina (inactive) Management Plan continue current therapy Chencho Cosby MD FAMILY HISTORY Family Member Condition Father Negative FH of Coron jose maria Artery Disease Mother Negative FH of Coron jose maria Artery Disease INSURANCE PROVIDERS Payer name Policy type / Coverage type [place] red green party ID [facility] [id number] ADVANCE DIRECTIVES Name Date DISCUSSED - NO DECISION MADE TREATMENT PLAN Date Name Performer [id number],S,R CA stenosis will check nuc stress test to see if things are worsened Angelique Abbasi MD [id number],C, B P today: 158/99 P rior BP: [...] ..... Once a day Angelique Abbasi MD [id number],C,get home slee p test Angelique Abbasi MD [id number],W,check carotid US Angelique Abbasi MD [id number],S,on valproic a tarah and carbamazepine Angelique Abbasi MD Cardiology: H is updated medication list for this problem includes: Stiolto Respimat 2.5-2.5 Mcg/actuation Mist (Tiotropium-olodaterol) ..... 2 puff once a day Shaina Andradecole MARQUEZ Cardiology: M anaged per PCP o n valproic acid Shaina Sadiq MRAQUEZ Cardiology: n o new episodes Shaina Sadiq [...] a day W ill check labs Shaina Andradecoel MARQUEZ Cardiology: 0 08/25/2016 c ardiac cath [...] 27, 2023 N o angina Shaina Babcock [employer] REPRESENTATIVE Cardiology:fell down from step stool. broke left [...] E lectronically Signed By: Kerry Abbasi MD, [facility] 2 023-10-13 22:57:50 CDT C C: Angelique Abbasi MD, [facility] Angelique Abbasi MD Cardiology:CONCLUSIO NS: 1 . [...] to see if things are worsened Angelique Abbais MD Cardiology: B P today: 158/99 P [...] (Quinapril hcl) ..... Once a day Gonzalo [facility] Cardiology Follow up :His updated medication list for this problem includes: Lipitor 40 Mg Oral Tablet (Atorvastatin calcium) ..... One tab. daily Gonzalo [facility] Cardiology Follow up :His dizziness has [...] Tablet (Quinapril hcl) ..... Once a day [facility] Cardiology Follow up :His dizziness has mostly resolved. He does check his BP daily and reports he has to take his Rx most days. [facility] Cardiology Follow up :His dizziness has mostly resolved. He does check his BP daily and reports he has to take his Rx most days. Head CT showed no acute processes. [facility] Cardiology:His [facility] ed medication list for this problem includes: Lipitor 40 Mg Oral Tablet (Atorvastatin calcium) ..... One tab. daily [facility] Cardiology:The patie nt C/O dizziness. Upon standing [...] Tablet (Quinapril hcl) ..... One tablet daily [facility] Cardiology:No chest pain or SOB. His updated medication list for this problem includes: Accupril 20 Mg Oral Tablet (Quinapril hcl) ..... One tablet daily [facility] Cardiology:The patie nt C/O dizziness. Upon standing [...] Dr. Donald that head CT is indicated. [facility] Cardiology:The patie nt C/O dizziness. Upon standing [...] Donald that head CT is indicated. Gonzalo [facility] Cardiology:BP today: 130/84 P rior BP: 150/90 (02/11/2019) His updated medication list for this problem includes: Hydrochlorothiazide 25 Mg Oral Tablet (Hydrochlorothiazide) ..... One tab daily Quinapril 40mg Tablets (Quinapril hcl) ..... Take 1 tablet by mouth daily [facility] Cardiology:Recommend to keep LDL less than 70. CHOL: 163 (06/10/2018) LDL: 93 (06/10/2018) HDL: 49 (06/10/2018) T (06/10/2018) His updated medication list for this problem includes: Lipitor 20 Mg Oral Tablet (Atorvastatin calcium) ..... Take one pill a day [facility] Cardiology:Advised t o avoid smoking and tobbaco products. [facility] Cardiology:While gilmer miguel angel TV, he developed sharp pain in the center of the chest. Described as a knife stabbing. Worse with deep breaths and lasted about 30 min. No SOB. Resolved spontaneusely. He was admitted to [place]. He was told AZ was ruled out and echo was normal. Since discharge had some milder pain. No pain now. In 2017 cath showed mild CAD in the RCA. In 2018 was admitted to [facility] with CP and dobutamine stress echo was normal. The pain does not appear to be ischemic. Recommend to consider GI work up and try PPI. His updated medication list for this problem includes: Quinapril 40mg Tablets (Quinapril hcl) ..... Take 1 tablet by mouth daily [facility] Cardiology:While gilmer miguel angel TV, he developed sharp pain in the center of the chest. Described as a knife stabbing. Worse with deep breaths and lasted about 30 min. No SOB. Resolved spontaneusely. He was admitted to [place]. He was told AZ was ruled out and echo was normal. Since discharge had some milder pain. No pain now. In 2016 cath showed mild CAD in the RCA. In 2018 was admitted to [facility] with CP and dobutamine stress echo was normal. The pain does not appear to be ischemic. Recommended to consider GI work up and try PPI. If pain recurs we will consider CT chest with contrast and possibly repeat a stress test. [facility] Cardiology:CHOL: 163 (06/10/2018) HDL: 49 (06/10/2018) T (06/10/2018) LDL: 93 (06/10/2018) His updated medication list for this problem includes: Lipitor 20 Mg Oral Tablet (Atorvastatin calcium) ..... Take one pill a day [facility] Cardiology:BP is jonathan vated and we will [...] daily Octavio Dejesus MD Cardiology:Weight loss advised. [facility] Cardiology:Orders: P ulmonology (*) [facility] Cardiology:CHOL: 215 .0 (11/09/2016) HDL: 47.0 (11/09/2016) T.0 (11/09/2016) LDL: 140.6 (11/09/2016) His updated medication list for this problem includes: Lipitor 20 Mg Oral Tabs (Atorvastatin calcium) ..... Take one pill a day [facility] Cardiology:BP today: 140/80 P rior BP: 150/86 (11/08/2016) His updated medication list for this problem includes: Quinapril Hcl 40 Mg Tabs (Quinapril hcl) ..... 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 [facility] Cardiology:Cardiac c ath did not show significant CAD. EF was normal. He continues to be dyspneic and I recommend pulmonary consultation. [facility] Cardiology Follow up :LARGE 10/30 AND 10/31, [...] a day Carbamazepine Er 300 Mg Oral Di04s-dqt (Carbamazepine) ..... 2 pills twice a day Gonzalo [facility] Cardiology Follow up :Renal artery duplex was normal. Today we will increase Quinapril to 40mg daily. BP today: 170/100 P rior BP: 160/110 (09/26/2016) Gonzalo Eduardo Cardiology Follow up :Echo showed normal EF. ProBNP was normal. The pt is not a good candidate for a stress test or regadenosine due to dyspnea. Will schedule cardiac cath. [facility] Cardiology New Patient Gonzalo [facility] Cardiology New Patient:Mild per pulmonary. [facility] Cardiology New Patie nt:BP today: 160/110 His updated medication list for this problem includes: Quinapril Hcl 10 Mg Oral Tabs (Quinapril hcl) ..... Take two tablets daily <--- Dose increased [facility] Cardiology New Patie nt:Complaining of SOB with [...] completed EKG Octavio Dejesus MD completed SNOMED-CT: 283906150 [id number] Current Medications Documented Ramsey Rodriguez MD completed SNOMED-CT: 526694542 127160 Current Medications Documented Chencho Cosby MD completed SNOMED-CT: [id number] Current Medications Documented Ramsey Rodriguez MD completed EKG Ramsey Rodriguez MD completed SNOMED-CT: [id number] 727163 Current Medications Documented Ramsey Rodriguez MD completed
--- OUTSIDE RECORDS SUMMARY | 2024-03-22 23:47 | XMS_ITS | Encounter Summary ---
Author Organization [facility] Address [address] [place] [address] Care Team Providers Care Speed Belt Sander Tender Name Role Phone Annabelle Donald MD Primary Care Provider Reason for Visit * Reason Onset Date Comments Medication Management 02/12/2019 Encounter Details Date Type Department Care Team (Late st Contact Info) Description 02/12/2019 Telephone [facility] [address] [place] [address] Julio Aaron, LENS FABRICATING MACHINE TENDER-STAFF MINE WARFARE OFFICER [address] [place] [phone] Medication Management Social History Tobacco Use Types [...] refills pt must schedule an appointment per DIGITAL MARKETING CONSULTANT [place]. Rosetta Mckee MAKER documented in this encounter Plan of Treatment Not on file documented as of this encounter Visit Diagnoses Not on filedocumented in this encounter Care Teams Speed Belt Sander Tender Relationship Specialty Start Date End Date Annabelle Donald MD [address] [phone] PCP - General 03/04/18 documented as of this encounter
--- OUTSIDE RECORDS SUMMARY | 2024-03-22 23:47 | XMS_ITS | Encounter Summary ---
Author Organization [facility] Address [address] [place] [address] Care Team Providers Care Prop Sawyer Name Role Phone Kelsie Toure Primary Care Provider + Encounter Details Date Type Department Care Team (Latest Contact Info) Description 04/04/2016 Hospital Outpatient Visit [facility] [address] [place] [phone] Theresa Vences MD [address] [place] [address] Discharge Disposition: Home or Self Care Social [...] on filedocumented in this encounter Care Teams Prop Sawyer Relationship Specialty Start Date End Date Kelsie Toure APRN-CNP [address] [place] [address] PCP - General Nurse Practitioner 08/13/16 03/03/18 documented as of this encounter
--- OUTSIDE RECORDS SUMMARY | 2024-03-22 23:47 | XMS_ITS | Encounter Summary ---
Author Organization [facility] Address [address] [facility] [place] [address] Care Team Providers Care Marine Geologist Name Role Phone Annabelle Donald MD Primary Care Provider Encounter Details Date Type Department Care Team (Late st Contact Info) Description 10/11/2021 10:00 AM CDT Video Visit [facility] Neurology [address] [facility] [place] [address] Kiersten Aranda PA-C [address] [place] [address] Localz-rltd symptomatic epilepsy w cmplx [...] ??? 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 Smoking status: Former Smoker [...] monitoring documented in this encounter Care Teams Marine Geologist Relationship Specialty Start Date End Date Annabelle Donald MD [address] [phone] PCP - General 03/04/18 documented as of this encounter
--- OUTSIDE RECORDS SUMMARY | 2024-03-22 23:47 | XMS_ITS | Referral Summary ---
Author Organization [facility] [employer] Address [address] [facility] [place] [address] Care Team Providers Care Supply Chain Associate Name Role Phone Annabelle Donald MD Primary Care Provider Source Comments [facility],non-owned Affiliates and Associated Physician Practices is amultiple site organization consisting of ambulatory clinics and hospital sitesin [place], [place], [place] and [place]. This disclosure is being madepursuant to the Care Everywhere program and may not contain all information available regarding this patient. Last updated 17.[facility] [employer] Allergies No known active allergies Medications * [...] Comments Blood Pressure 150/86 04/01/2019 3:08 PM RN FACULTY Pulse 75 04/01/2019 3:08 PM RN FACULTY Temperature 36.8 ??C (98.3 ??F) 03/11/2018 1:56 PM CS T Respiratory Rate 16 05/06/2017 5:31 PM RN FACULTY Oxygen Saturation 100% 05/06/2017 5:31 PM RN FACULTY Inhaled Oxygen Concentration - - Weight 100.2 kg (221 lb) 04/01/2019 3:08 PM RN FACULTY Height 177.8 cm (5' 10 ) 04/01/2019 3:08 PM RN FACULTY Body Mass Index 31.71 04/01/2019 3:08 PM RN FACULTY Plan of Treatment Not on file Care Teams Supply Chain Associate Relationship Specialty Start Date End Date Annabelle Donald MD [address] [address] PCP - General 03/04/18
--- OUTSIDE RECORDS SUMMARY | 2024-03-22 23:48 | XMS_ITS | Encounter Summary ---
Author Organization [facility] Address [address] [place] [address] Care Team Providers Care Fire Prevention Research Engineer Name Role Phone Annabelle Donald MD Primary [...] on filedocumented in this encounter Care Teams Fire Prevention Research Engineer Relationship Specialty Start Date End Date Annabelle Donald MD PCP - General Internal Medicine 07/30/23 documented as of this encounter
--- OUTSIDE RECORDS SUMMARY | 2024-03-22 23:48 | XMS_ITS | Encounter Summary ---
Author Organization [facility] [employer] Address [address] [place] [address] Care Team Providers Care Dispensing Audiologist Name Role Phone Annabelle Donald MD Primary Care Provider Reason for Visit * Reason Onset Date Comments lab work for appointment 11/12/2023 Encounter Details Date Type Department Care Team (Late st Contact Info) Description 11/12/2023 Telephone [facility] Oncology and Hematology - Mauricio Immanuel [facility] [address] [place] [address] Nancy Sebastian FNP [address] [facility] [address] [place] [address] lab work for appointment Social [...] on filedocumented in this encounter Care Teams Dispensing Audiologist Relationship Specialty Start Date End Date Annabelle Donald MD PCP - General Internal Medicine 07/30/23 documented as of this encounter
--- OUTSIDE RECORDS SUMMARY | 2024-03-22 23:48 | XMS_ITS | Clinical Summary ---
Author Organization [facility] Address [address] [place] [address] Care Team Providers Care Claim Analyst Name Role Phone Annabelle Donald MD [...] - Td or Tdap) 02/04/2027 Care Teams Claim Analyst Relationship Specialty Start Date End Date Annabelle Donald MD PCP - General Internal Medicine 07/30/23
--- OUTSIDE RECORDS SUMMARY | 2024-03-22 23:48 | XMS_ITS | Clinical Summary ---
Author Organization Unknown Care Team Providers Care Bath Solution Maker Name Role Phone HEBERTSTEPHENWAGNER Negron Unavailable Unavailable MAURA PHYSICAL THERAPIST, YR Unavailable Unavailable WILLIAM THRASHER FEEDER, NÉSTOR Unabassam ailable Unavailable VANDANA REGISTERED NURSE, ISIS Unavailable Unavailable KRISTINA CFSS, OT, MUNA Unavailable Rafaela audrey REDDY OCCUPATIONAL THERAPIST, IVIS Garcia le Unavailable Payers Payer Name Policy Type Policy Number Effective Date Expira tion Date MEDICARE [place] - EPISODIC [id number] Problems Condition Name Condition Details Condition Category Status Onset Date Resolution Date Last Treatment Date Treating Clinician Comments ESSENTIAL (PRIMARY) HYPERTENSION Active 05-26 00:00: 00 ATHSCL HEART DISEASE OF [place] CORONARY ARTERY W/O ANG PCTRS Active 05-26 00:00: 00 CHRONIC OBSTRUCTIVE PULMONARY DISEASE, UNSPECIFIED Active 05-26 00:00: 00 HYPERLIPIDEM IA, UNSPECIFIED Active 05-26 00:00: 00 EPILEPSY, UNSP, NOT INTRACTABLE, WITHOUT STATUS EPILEPTICUS Active 05-26 00:00: 00 OTHER CHRONIC PAIN Active 05-26 00:00: 00 UNSPECIFIED OSTEOARTHRIT IS, UNSPECIFIED SITE Active 05-26 00:00: 00 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 ANTITHROMBOT ICS/ANTIPLAT ELETS Active 05-26 00:00: 00 SKILLED NURSING (CURRENT) USE OF INHALED STEROIDS Active 05-26 [...] on aerosol inhaler 05-26 00:00: 00 Yes [id number] COPD 1 puff NEEDED 1 puff NEEDED (route: inhalation ) Med Classific ation: Respirato ry Therapy Agents aspirin 81 mg tablet,fabienne yed release 05-26 00:00: 00 Yes [id number] HYPERTENSIO N 1 tablet DAILY 1 tablet DAILY (route: oral) Med Classific ation: Hematolog ical Agents atorvastati n 40 mg tablet 05-26 00:00: 00 Yes [id number] HYPERLIPIDE EKATERINA 2 tablet DAILY 2 tablet DAILY (route: oral) Med Classific ation: Cardiovas cular Therapy Agents carbamazepi ne ER 300 mg capsule,ext ended release [id number] 05-26 00:00: 00 Yes [id number] SEIZURES 2 capsule 2 TIMES DAILY 2 capsule 2 TIMES DAILY (route: oral) Med Classific ation: Central Nervous System Agents clopidogrel 75 mg tablet 05-26 00:00: 00 Yes [id number] HYPERTENSIO N 1 tablet DAILY 1 tablet DAILY (route: oral) Med Classific ation: Hematolog ical Agents fluticasone propionate 50 mcg/actuati on nasal spray,suspe nsion 05-26 00:00: 00 Yes [id number] ALLERGIES 1 spray DAILY 1 spray DAILY (route: nasal) Med Classific ation: Respirato ry Therapy Agents hydrochloro thiazide 25 mg tablet 05-26 00:00: 00 Yes [id number] HYPERTENSIO N 1 tablet DAILY 1 tablet DAILY (route: oral) Med Classific ation: Cardiovas cular Therapy Agents loratadine 10 mg tablet 05-26 00:00: 00 Yes [id number] ALLERGIES 1 tablet DAILY 1 tablet DAILY (route: oral) Med Classific ation: Respirato ry Therapy Agents lorazepam 0.5 mg tablet 05-26 00:00: 00 Yes [id number] ANXIETY 1 tablet NEEDED 1 tablet NEEDED (route: oral) Med Classific ation: Central Nervous System Agents losartan 50 mg tablet 05-26 00:00: 00 Yes [id number] HYPERTENSIO N 1 tablet DAILY 1 tablet DAILY (route: oral) Med Classific ation: Cardiovas cular Therapy Agents multivitami n tablet 05-26 00:00: 00 Yes [id number] SUPPLEMENT 1 tablet DAILY 1 tablet DAILY (route: oral) Med Classific ation: Electroly te Balance-N utritiona l Products pantoprazol e 40 mg tablet,fabienne yed release 05-26 00:00: 00 Yes [id number] GERD 1 tablet DAILY 1 tablet DAILY (route: oral) Med Classific ation: Gastroint estinal Therapy Agents ropinirole 0.5 mg tablet 05-26 00:00: 00 Yes [id number] RESTLESS LEGS 1 tablet BEDTIME 1 tablet BEDTIME (route: oral) Med Classific ation: Central Nervous System Agents sertraline 50 mg tablet 05-26 00:00: 00 Yes [id number] DEPRESSION 1 tablet DAILY 1 tablet DAILY (route: oral) Med Classific ation: Central Nervous System Agents Spiriva Respimat 2.5 mcg/actuati on solution for inhalation 05-26 00:00: 00 Yes [id number] COPD 1 puff DAILY 1 puff DAILY (route: inhalation ) Med Classific ation: Respirato ry Therapy Agents valproic acid 250 mg capsule 05-26 00:00: 00 Yes [id number] SEIZURES 2 capsule 3 TIMES DAILY 2 [...] WILL BE ESTABLISHED THAT MEETS ALL PATIENT'S FPC NEEDS AND COUNTER SIGNED BY PHYSICIAN. Goal [...] DRESSING, BATHING, TOILETING, GROOMING, HOUSEHOLD CLEANING, LAUNDRY, JOB SPOTTER LOAD/UNLOAD, DISHES, MEAL PREPARATION, MAIL RETREIVAL, TRASH COLLECTION, AND COMMUNITY RE-ENTRY TASKS WITH INDEPENDENT/MODIFIED INDEPENDENT. PATIENT WILL BE ABLE TO DEMONSTRATE CONSISTENT APPLICATION OF ENERGY CONSERVATION TECHNIQUES INSTRUCTED THAT IMPROVE FUNCTIONAL MOBILITY PERFORMANCE. Goal Provider Goal - NONE Reason for Visit INDEPENDENT IN THE COMMUNITY Encounters Start Date/Time End Date/Time Encounter Type Admission Type Attending [facility] Care Department Encounter ID Discharge Date Discharge Status Discharge Condition Discharge Reason Percent Goals Met 2021-05-26 00:00:00 2021-07-07 00:00:00 Outpatient NEW ADMISSION [facility] [id number] 00:00:00 DISCHARGE TO HOME OR SELF CARE INDEPENDEN T IN THE COMMUNITY GOALS MET 100.00
--- OUTSIDE RECORDS SUMMARY | 2024-03-22 23:48 | XMS_ITS | Encounter Summary ---
Author Organization [facility] Address [address] [place] [address] Care Team Providers Care Clinical Education Assistant Name Role Phone Annabelle Donald MD [...] on filedocumented in this encounter Care Teams Clinical Education Assistant Relationship Specialty Start Date End Date Annabelle Donald MD PCP - General Internal Medicine 07/30/23 documented as of this encounter
--- OUTSIDE RECORDS SUMMARY | 2024-03-22 23:48 | XMS_ITS | Encounter Summary ---
Author Organization [facility] Address [address] [place] [address] Care Team Providers Care Heat And Frost Insulator Helper Name Role Phone Annabelle Donald MD [...] on filedocumented in this encounter Care Teams Heat And Frost Insulator Helper Relationship Specialty Start Date End Date Annabelle Donald MD PCP - General Internal Medicine 07/30/23 documented as of this encounter
--- OUTSIDE RECORDS SUMMARY | 2024-03-22 23:48 | XMS_ITS | Encounter Summary ---
Author Organization ?[facility] Address [address] [place] [address] Care Team Providers Care Executive Meeting Manager Name Role Phone Annabelle Donald MD Primary [...] on filedocumented in this encounter Care Teams Executive Meeting Manager Relationship Specialty Start Date End Date Annabelle Donald MD PCP - General Internal Medicine 07/30/23 documented as of this encounter
--- OUTSIDE RECORDS SUMMARY | 2024-03-22 23:48 | XMS_ITS | Encounter Summary ---
Author Organization [facility] Address [address] [place] [address] Care Team Providers Care Marine Service Manager Name Role Phone Annabelle Donald MD [...] on filedocumented in this encounter Care Teams Marine Service Manager Relationship Specialty Start Date End Date Annabelle Donald MD PCP - General Internal Medicine 07/30/23 documented as of this encounter
--- OUTSIDE RECORDS SUMMARY | 2024-03-22 23:48 | XMS_ITS | Encounter Summary ---
Author Organization [facility] Address [address] [place] [address] Care Team Providers Care Shelter Director Name Role Phone Annabelle Donald MD Primary [...] on filedocumented in this encounter Care Teams Shelter Director Relationship Specialty Start Date End Date Annabelle Donald MD PCP - General Internal Medicine 07/30/23 documented as of this encounter
--- OUTSIDE RECORDS SUMMARY | 2024-03-22 23:48 | XMS_ITS | Encounter Summary ---
Author Organization [facility] Address [address] [place] [address] Care Team Providers Care Automobile Carpets Molder Name Role Phone Annabelle Donald MD Primary [...] on filedocumented in this encounter Care Teams Automobile Carpets Molder Relationship Specialty Start Date End Date Annabelle Donald MD PCP - General Internal Medicine 07/30/23 documented as of this encounter
--- OUTSIDE RECORDS SUMMARY | 2024-03-22 23:48 | XMS_ITS | Encounter Summary ---
Author Organization [facility] Address [address] [place] [address] Care Team Providers Care Button Broacher Name Role Phone Annabelle Donald MD Primary [...] on filedocumented in this encounter Care Teams Button Broacher Relationship Specialty Start Date End Date Annabelle Donald MD PCP - General Internal Medicine 07/30/23 documented as of this encounter
--- OUTSIDE RECORDS SUMMARY | 2024-03-22 23:48 | XMS_ITS | Encounter Summary ---
Author Organization [facility] Address [address] [place] [address] Care Team Providers Care Sheet Rock Applicator Name Role Phone Annabelle Donald MD Primary [...] on filedocumented in this encounter Care Teams Sheet Rock Applicator Relationship Specialty Start Date End Date Annabelle Donald MD PCP - General Internal Medicine 07/30/23 documented as of this encounter
--- OUTSIDE RECORDS SUMMARY | 2024-03-22 23:48 | XMS_ITS | Encounter Summary ---
Author Organization [facility] Address [address] [place] [address] Care Team Providers Care Panel Edge Sealer Name Role Phone Annabelle Donald MD Primary [...] on filedocumented in this encounter Care Teams Panel Edge Sealer Relationship Specialty Start Date End Date Annabelle Donald MD PCP - General Internal Medicine 07/30/23 documented as of this encounter
--- OUTSIDE RECORDS SUMMARY | 2024-03-22 23:49 | XMS_ITS | Encounter Summary ---
Author Organization [facility] Address [address] [place] [address] Care Team Providers Care Sales Consultant Insurance Name Role Phone Annabelle Donald MD [...] on filedocumented in this encounter Care Teams Sales Consultant Insurance Relationship Specialty Start Date End Date Annabelle Donald MD PCP - General Internal Medicine 07/30/23 documented as of this encounter
--- OUTSIDE RECORDS SUMMARY | 2024-03-22 23:49 | XMS_ITS | Encounter Summary ---
Author Organization [facility] Healthcare Address [address] [place] [address] Care Team Providers Care Core Rescuer Name Role Phone Stephan Donald MD Primary Care Provide r Reason for Visit * Reason Comments Black or Bloody Stool Encounter Details Date Type Department Care Team (Latest Contact Info) Description 08/18/2020 11:13 PM CDT - 08/24/2020 4:46 PM CDT Hospital Encounter 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 Gender Identity Not on file Sexual Orientation [...] Unspecified essential hypertension Atherosclerotic heart disease of [place] coronary artery without angina pectoris - ATHEROSCLEROTIC HEART DISEASE OF [place] CORONARY ARTERY WITHOUT ANGINA PECTORIS Noninfective gastroenteritis [...] CONTACT WITH AND (SUSPECTED) EXPOSURE TO COVID-19 nursing home (current) use of non-steroidal anti-inflammatories (nsaid) - JAIL (CURRENT) USE OF NON-STEROIDAL ANTI-INFLAMMATORIES (NSAID) Personal history of nicotine dependence - PERSONAL HISTORY OF NICOTINE DEPENDENCE documented in this encounter Discharge Summaries * Lashell Isaac MD - 08/24/2020 3:48 PM CDT Inpatient Discharge Summary BRIEF OVERVIEW Admitting Provider: Loren Carmona MD Discharge Provider: Loren Carmona MD Primary Care Physician at Discharge: Stephan Donald MD [phone] Admission Date: 08/18/2020 Discharge Date: 08/24/2020 Admission Location: [facility] Problems/Diagnoses: Principal Problem: Petechiae Active Problems: Chronic [...] his rash, which improved pruritis. Lives in [place], no recent visit to farm, nature, no recent tick bites. Monogamous with one partner (). 40 years of 1 PPD smoking quit since 10 years ago, alcohol use every few months, no drug use. ?? Today he made eggs int he morning and ate them, subsequently had 3 bowel movements with bright red diarrhea that prompted presentation to [facility] ED. ?? On arrival to ED [...] likely is colitis vs colon cancer. OSH ([place]) c- scope showed moderatesegmental inflammation in the [...] Test Results: CT Abdomen Pelvis W Contrast [[id number]] 1. ??Colonic thickening at the hepatic flexure with small volume simple free pelvic fluid likely is colitis. Differential consideration includes colon cancer. Recommend colonoscopy. 2. ??Hyperdense left renal nodule. Recommend follow up renal ultrasound in 6 months. Recommend follow up of the Incidental renal nodule Additional Imaging In 6 Months with renal ultrasound or MRI. US Kidney Complete [[id number]] Subcentimeter exophytic lesion in the interpolar region [...] BUE. 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 Painter Touch Up will continue to follow discharge plan of [...] MD Nephrology Fellow Consult 1 Contact (phone): [phone] On weekends and after 4pm on weekdays page monitor technician pager: [phone] Cosigned by Anna Landrum MD PhD at 08/24/2020 6:04 PM CDT Associated attestation - Anna Landrum MD PhD - 08/24/2020 6:04 PM CDT I have seen and examined the patient on 08/24/2020. I agree with the findings and plan of care as documented in the resident/fellow/CUSTOM FRAMING SPECIALIST's note. Appreciate the input from Rheum and [...] BUE. 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 -OSH ([place]) c-scope results received yesterday. Per report, indication [...] Reviewed CT a/p w/ contrast with radiology monitor technician. All vasculature is patent. Do not recommend [...] coverage. -Hospital-provided CPAP at night #FENGI: Adult [facility] soft -> advance as tolerated #Ppx: DVT [...] the consult. Please call with any questions [phone] days M-F 7:30AM-5PM [phone] nights/weekends/holidays Tawanna Avalos MD PhD Dermatology, PGY-3 [...] MD Nephrology Fellow Consult 1 Contact (phone): [phone] On weekends and after 4pm on weekdays page monitor technician pager: [phone] Cosigned by Anna Landrum MD PhD at 08/23/2020 2:52 PM CDT Associated attestation - Anna Landrum MD PhD - 08/23/2020 2:52 PM CDT I have seen and examined the patient on 08/23/2020. I agree with the findings and plan of care as documented in the resident/fellow/CUSTOM FRAMING SPECIALIST's note. Would rec. Rheumatology on board. * [...] BUE. 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 -OSH ([place]) c-scope results received yesterday. Per report, indication [...] Reviewed CT a/p w/ contrast with radiology monitor technician. All vasculature is patent. Do not recommend [...] MD Nephrology Fellow Consult 1 Contact (phone): [phone] On weekends and after 4pm on weekdays page monitor technician pager: [phone] Cosigned by Anna Landrum MD PhD at 08/22/2020 12:32 PM CDT Associated attestation - Anna Landrum MD PhD - 08/22/2020 12:32 PM CDT I have seen and examined the patient on 08/22/2020. I agree with the findings and plan of care as documented in the resident/fellow/CUSTOM FRAMING SPECIALIST's note. * Feliciano Long MD - 08/22/2020 [...] reports lower extremity rash is improving today, ceramic engineering professor in color and less evident on abdomen [...] BUE. 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 -OSH ([place]) c-scope results received yesterday. Per report, indication [...] Reviewed CT a/p w/ contrast with radiology monitor technician. All vasculature is patent. Do not recommend [...] Reviewed CT a/p w/ contrast with radiology monitor technician. All vasculature is patent. Do not recommend [...] >> ischemic colitis >> AVM's/diverticular bleed. -OSH ([place]) c-scope results received yesterday. Per report, indication [...] Reviewed CT a/p w/ contrast with radiology monitor technician. All vasculature is patent. Do not recommend [...] coverage. -Hospital-provided [facility] at [facility] as [facility] #Ppx: [...] to follow. For any questions??M-F 8am-5pm, please call??[phone].??For urgent questions nights and weekends, please call [phone]. ?? Jailyn Damico MD PhD PGY2 Dermatology [...] F/u OSH C-scope and biopsy report (from [facility], [place], [place], done 08/10/20, records request sent 08/19/20) [...] until 4:30 PM M-F when not on-call. orthopedically impaired teacher days, teams are here until 8 PM. On non-call weekend days, check Amion for the on-call team who are likely providing cross-coverage. Cosigned by Loren Carmona MD at 08/21/2020 4:38 PM CDT [...] contact info (name, phone, availablity): ALEXANDRA RECIO [phone] Home Care Services: No Durable Medical Equipment: [...] Collaboration with patient, MD, direct care nurse, Rn Circulating, Nurse Coordinator and other members of the health care team to assure needed interventions completed. 2. Return patient to optimal level of self-care post discharge. 3. Painter Touch Up will follow for Discharge Planning - interventions [...] his rash, which improved pruritis. Lives in [place], no recent visit to [place], no recent tick bites. Monogamous with one partner (). 40 years of 1 PPD smoking quit since 10 years ago, alcohol use every few months, no drug use. Today he made eggs int he morning and ate them, subsequently had 3 bowel movements with bright red diarrhea that prompted presentation to [facility] ED. On arrival to ED afebrile, [...] no sick contacts, no travel. Lives in [place]. No new medications prior to symptom onset. [...] noted hematochezia on 08/19 and presented to [facility] for further evaluation. Upon arrival, WBC was [...] any questions. Duringthe weekend page the fellow monitor technician. Patient was seen with and case was [...] Gatherings with Friends and Family: ??? Attends Congregational Services: ??? Active Member of Clubs or [...] Fellow, PGY-V Consult 1 Service Contact (phone): [phone] After hours and weekends: please page [phone] Cosigned by Ronnie Brady MD at 08/20/2020 [...] red diarrhea so he came to the [facility] ED. Prior to this episode of rash [...] For any questions M-F 8am-5pm, please call [phone]. For urgent questions nights and weekends, please call [phone]. 08/19/20 Danny Medina MD PGY-4 Dermatology Resident [...] with voice recognition software. Occasional wrong-word or '[id number]' substitutions may have occurred due to the [...] workup/evaluation. ED Course as of August 19 148 Time: 08/19 53 Comment: S/o to firm [...] 3. Renal lesion Román Hernandez MD 08/19/20 2055 * Romy Pearl RN - 08/18/2020 11:13 PM CDT Bed: ED1-06 Expected date: Expected time: Means of arrival: Ambulance Comments: Romy Pearl RN 08/18/20 3814 * Livia Dorado RN - 08/18/2020 6:41 [...] Appointment date: 11/25/2020 at 10:30am ??? Location: [address], [address] [place] [address] ??? Rheumatology clinic number [phone] Cosigned by Maude Dewey MD at 08/25/2020 [...] likely is colitis vs colon cancer. OSH ([place]) c- scope showed moderatesegmental inflammation in the [...] POCT glucose (08/24/2020 12:03 PM CDT) Pathologist [facility] Glucose, POC 121 70 - 199 mg/dL [facility] Blood specimen (specimen) 08/24/2020 12:03 PM CDT 08/24/2020 12:03 PM CDT us Amaad Rashawn Carmona MD LAB POCT ORDERABLES - DEVIC E Final Result [facility] Department [place] [address] * (ABNORMAL) Differential, auto (08/24/2020 9:15 AM CDT) Pathologist [facility] Neutrophil abs 4.3 1.7 - 6.5 K/cumm [facility] Imm gran abs 0.0 0.0 - 0.1 K/cumm [facility] Lymphocyte abs 3.9(H) 0.8 - 3.3 K/cumm [facility] Monocyte abs 0.5 0.2 - 0.8 K/cumm [facility] Eosinophil abs 0.1 0.0 - 0.5 K/cumm [facility] Basophil abs 0.0 0.0 - 0.1 K/cumm [facility] Neutrophil pct 48.5 % [facility] Comment: Interpretive Data Percent cell count reference ranges are not reported, since discordance with absolute values may lead to misinterpretation of CBC data. Current Interpretive Data was last revised on 2017. Imm gran pct 0.5 % [facility] Comment: Interpretive Data Percent cell count reference ranges are not reported, since discordance with absolute values may lead to misinterpretation of CBC data. Current Interpretive Data was last revised on 2017. Lymphocyte pct 43.8 % [facility] Comment: Interpretive Data Percent cell count reference ranges are not reported, since discordance with absolute values may lead to misinterpretation of CBC data. Current Interpretive Data was last revised on 2017. Monocyte pct 5.8 % [facility] Comment: Interpretive Data Percent cell count reference ranges are not reported, since discordance with absolute values may lead to misinterpretation of CBC data. Current Interpretive Data was last revised on 2017. Eosinophil pct 1.1 % [facility] Comment: Interpretive Data Percent cell count reference ranges are not reported, since discordance with absolute values may lead to misinterpretation of CBC data. Current Interpretive Data was last revised on 2017. Basophil pct 0.3 % [facility] Comment: Interpretive Data Percent cell count reference ranges are not reported, since discordance with absolute values may lead to misinterpretation of CBC data. Current Interpretive Data was last revised on 2017. Blood specimen (specimen) 08/24/2020 9:15 AM CDT 08/24/2020 9:33 AM CDT us Amaad Rashawn Carmona MD LAB BLOOD ORDERABLES Final Result [facility] Department [place] [address] * CBC with auto differential (08/24/2020 9:15 AM CDT) Pathologist [facility] WBC 8.8 3.8 - 9.9 K/cumm [facility] Hgb 13.7 13.0 - 17.5 g/dL [facility] Hct 40.4 38.9 - 50.3 % [facility] Plt 372 150 - 400 K/cumm [facility] MPV 9.8 9.1 - 12.3 fL [facility] RBC 4.61 4.30 - 5.80 M/cumm [facility] MCV 87.6 81.3 - 96.4 fL [facility] MCH 29.7 27.1 - 33.3 pg [facility] MCHC 33.9 32.3 - 35.7 g/dL [facility] RDW CV 12.5 11.1 - 14.9 % [facility] RDW SD 39.8 35.7 - 48.1 fL [facility] NRBC abs 0.00 0.00 - 0.01 K/cumm [facility] Blood specimen (specimen) 08/24/2020 9:15 AM CDT 08/24/2020 9:33 AM CDT us Loren Carmona MD LAB BLOOD ORDERABLES Final Result Performing Organization Address [facility] Co de Phone Number [facility] Department [place] [address] * POCT glucose (08/24/2020 8:19 AM CDT) Pathologist [facility] Glucose, POC 95 70 - 199 mg/dL [facility] Blood specimen (specimen) 08/24/2020 8:19 AM CDT 08/24/2020 8:19 AM CDT Loren Cramona MD LAB POCT ORDERABLES - DEVIC E Final Result Performing Organization Address [facility] de Phone Number [facility] Department [place] [address] * (ABNORMAL) Valproic acid level, total (08/23/2020 11:04 PM CDT) Pathologist [facility] Valproic Acid 45.0(L) 50.0 - 100.0 mcg/mL [facility] Comment: Interpretive Data Therapeutic or toxic effects of anticonvulsant drugs may occur at different concentrations in different patients and the correlation between dose and clinical effect must be evaluated individually. Current interpretative data was last revised on 13. Blood specimen (specimen) 08/23/2020 11:04 PM CDT 08/23/2020 11:28 PM CDT Loren Carmona MD LAB BLOOD ORDERABLES Final Result Performing Organization Address [facility] de Phone Number [facility] Department [place] [address] * Differential, auto (08/23/2020 11:04 PM CDT) Pathologist [facility] Neutrophil abs 5.7 1.7 - 6.5 K/cumm [facility] Imm gran abs 0.1 0.0 - 0.1 K/cumm [facility] Lymphocyte abs 2.9 0.8 - 3.3 K/cumm [facility] Monocyte abs 0.5 0.2 - 0.8 K/cumm [facility] Eosinophil abs 0.0 0.0 - 0.5 K/cumm [facility] Basophil abs 0.0 0.0 - 0.1 K/cumm [facility] Neutrophil pct 62.2 % [facility] Comment: Interpretive Data Percent cell count reference ranges are not reported, since discordance with absolute values may lead to misinterpretation of CBC data. Current Interpretive Data was last revised on 2017. Imm gran pct 0.7 % [facility] Comment: Interpretive Data Percent cell count reference ranges are not reported, since discordance with absolute values may lead to misinterpretation of CBC data. Current Interpretive Data was last revised on 2017. Lymphocyte pct 31.0 % [facility] Comment: Interpretive Data Percent cell count reference ranges are not reported, since discordance with absolute values may lead to misinterpretation of CBC data. Current Interpretive Data was last revised on 2017. Monocyte pct 5.6 % [facility] Comment: Interpretive Data Percent cell count reference ranges are not reported, since discordance with absolute values may lead to misinterpretation of CBC data. Current Interpretive Data was last revised on 2017. Eosinophil pct 0.2 % [facility] Comment: Interpretive Data Percent cell count reference ranges are not reported, since discordance with absolute values may lead to misinterpretation of CBC data. Current Interpretive Data was last revised on 2017. Basophil pct 0.3 % [facility] Comment: Interpretive Data Percent cell count reference ranges are not reported, since discordance with absolute values may lead to misinterpretation of CBC data. Current Interpretive Data was last revised on 2017. Blood specimen (specimen) 08/23/2020 11:04 PM CDT 08/23/2020 11:29 PM CDT us Loren Carmona MD LAB BLOOD ORDERABLES Final Result [facility] [place] [address] * Magnesium (08/23/2020 11:04 PM CDT) Magnesium 2.0 1.4 - 2.5 mg/dL [facility] Blood specimen (specimen) 08/23/2020 11:04 PM CDT 08/23/2020 11:28 PM CDT Loren Carmona MD LAB BLOOD ORDERABLES Final Result [facility] [place] [address] * (ABNORMAL) Comprehensive metabolic panel (08/23/2020 11:04 PM CDT) Sodium 141 135 - 145 mmol/L [facility] Potassium, pl 3.7 3.3 - 4.9 mmol/L [facility] Chloride 103 97 - 110 mmol/L [facility] CO2 29 22 - 32 mmol/L [facility] Anion gap 9 2 - 15 mmol/L [facility] BUN 12 8 - 25 mg/dL [facility] Creatinine 0.82 0.80 - 1.30 mg/dL [facility] Glucose 119 70 - 199 mg/dL [facility] Comment: Interpretive Data Fasting glucose >/= 126 [...] 2017. Calcium 9.1 8.5 - 10.3 mg/dL [facility] Bilirubin, total <0.2 0.1 - 1.2 mg/dL [facility] Protein, pl 6.1(L) 6.5 - 8.5 g/dL [facility] Albumin 3.2(L) 3.5 - 5.0 g/dL [facility] Alk phos 68 40 - 130 Units/L [facility] ALT 35 7 - 55 Units/L [facility] AST 22 10 - 50 Units/L [facility] Blood specimen (specimen) 08/23/2020 11:04 PM CDT 08/23/2020 11:28 PM CDT us Amaad Rashawn Carmona MD LAB BLOOD ORDERABLES Final Result [facility] Department [place] [address] * (ABNORMAL) CBC with auto differential (08/23/2020 11:04 PM CDT) Pathologist [facility] WBC 9.2 3.8 - 9.9 K/cumm [facility] Hgb 12.7(L) 13.0 - 17.5 g/dL [facility] Hct 36.8(L) 38.9 - 50.3 % [facility] Plt 370 150 - 400 K/cumm [facility] MPV 9.8 9.1 - 12.3 fL [facility] RBC 4.21(L) 4.30 - 5.80 M/cumm [facility] MCV 87.4 81.3 - 96.4 fL [facility] MCH 30.2 27.1 - 33.3 pg [facility] MCHC 34.5 32.3 - 35.7 g/dL [facility] RDW CV 12.3 11.1 - 14.9 % [facility] RDW SD 39.2 35.7 - 48.1 fL [facility] NRBC abs 0.00 0.00 - 0.01 K/cumm [facility] Blood specimen (specimen) 08/23/2020 11:04 PM CDT 08/23/2020 11:29 PM CDT Loren Carmona MD LAB BLOOD ORDERABLES Final Result Performing Organization Address City/[facility]/ZIP Co de Phone Number [facility] Department [place] [address] * POCT glucose (08/23/2020 8:22 PM CDT) Pathologist [facility] Glucose, POC 137 70 - 199 mg/dL [facility] Blood specimen (specimen) 08/23/2020 8:22 PM CDT 08/23/2020 8:22 PM CDT Loren Carmona MD LAB POCT ORDERABLES - DEVIC E Final Result [facility] Department [place] [address] * POCT glucose (08/23/2020 4:35 PM CDT) Glucose, POC 120 70 - 199 mg/dL [facility] Blood specimen (specimen) 08/23/2020 4:35 PM CDT 08/23/2020 4:35 PM CDT us Amaad Rashawn Carmona MD LAB POCT ORDERABLES - DEVIC E Final Result [facility] [place] [address] * CTA Head W WO Contrast (08/23/2020 [...] * POCT glucose (08/23/2020 11:29 AM CDT) [facility] Signature Glucose, POC 136 70 - 199 mg/dL [facility] Blood specimen (specimen) 08/23/2020 11:29 AM CDT 08/23/2020 11:29 AM CDT Loren Carmona MD LAB POCT ORDERABLES - DEVIC E Final Result Performing Organization Address [facility]/ZIP Co de Phone Number [facility] Department [place] [address] * POCT glucose (08/23/2020 10:28 AM CDT) [facility] Glucose, POC 165 70 - 199 mg/dL [facility] Blood specimen (specimen) 08/23/2020 10:28 AM CDT 08/23/2020 10:28 AM CDT Loren Carmona MD LAB POCT ORDERABLES - DEVIC E Final Result Performing Organization Address City/[facility] Co de Phone Number [facility] [place] [place] [address] * (ABNORMAL) Differential, auto (08/23/2020 8:11 AM CDT) [facility] Neutrophil abs 3.6 1.7 - 6.5 K/cumm [facility] Imm gran abs 0.0 0.0 - 0.1 K/cumm [facility] Lymphocyte abs 4.1(H) 0.8 - 3.3 K/cumm [facility] Monocyte abs 0.6 0.2 - 0.8 K/cumm [facility] Eosinophil abs 0.1 0.0 - 0.5 K/cumm [facility] Basophil abs 0.0 0.0 - 0.1 K/cumm [facility] Neutrophil pct 43.2 % [facility] Comment: Interpretive Data Percent cell count reference ranges are not reported, since discordance with absolute values may lead to misinterpretation of CBC data. Current Interpretive Data was last revised on 2017. Imm gran pct 0.2 % [facility] Comment: Interpretive Data Percent cell count reference ranges are not reported, since discordance with absolute values may lead to misinterpretation of CBC data. Current Interpretive Data was last revised on 2017. Lymphocyte pct 48.5 % [facility] Comment: Interpretive Data Percent cell count reference ranges are not reported, since discordance with absolute values may lead to misinterpretation of CBC data. Current Interpretive Data was last revised on 2017. Monocyte pct 7.1 % [facility] Comment: Interpretive Data Percent cell count reference ranges are not reported, since discordance with absolute values may lead to misinterpretation of CBC data. Current Interpretive Data was last revised on 2017. Eosinophil pct 0.6 % [facility] Comment: Interpretive Data Percent cell count reference ranges are not reported, since discordance with absolute values may lead to misinterpretation of CBC data. Current Interpretive Data was last revised on 2017. Basophil pct 0.4 % [facility] Comment: Interpretive Data Percent cell count reference ranges are not reported, since discordance with absolute values may lead to misinterpretation of CBC data. Current Interpretive Data was last revised on 2017. Blood specimen (specimen) 08/23/2020 8:11 AM CDT 08/23/2020 8:21 AM CDT us Amaad Rashawn Carmona MD LAB BLOOD ORDERABLES Final Result [facility] Department [place] [address] * (ABNORMAL) CBC with auto differential (08/23/2020 8:11 AM CDT) WBC 8.4 3.8 - 9.9 K/cumm [facility] Hgb 12.4(L) 13.0 - 17.5 g/dL [facility] Hct 36.7(L) 38.9 - 50.3 % [facility] Plt 349 150 - 400 K/cumm [facility] MPV 9.7 9.1 - 12.3 fL [facility] RBC 4.19(L) 4.30 - 5.80 M/cumm [facility] MCV 87.6 81.3 - 96.4 fL [facility] MCH 29.6 27.1 - 33.3 pg [facility] MCHC 33.8 32.3 - 35.7 g/dL [facility] RDW CV 12.3 11.1 - 14.9 % [facility] RDW SD 39.3 35.7 - 48.1 fL [facility] NRBC abs 0.00 0.00 - 0.01 K/cumm [facility] Blood specimen (specimen) 08/23/2020 8:11 AM CDT 08/23/2020 8:21 AM CDT Loren Carmona MD LAB BLOOD ORDERABLES Final Result Performing Organization Address City/[facility]/ZIP Co de Phone Number [facility] Department [place] [address] * POCT glucose (08/23/2020 7:51 AM CDT) Pathologist [facility] Glucose, POC 86 70 - 199 mg/dL [facility] Blood specimen (specimen) 08/23/2020 7:51 AM CDT 08/23/2020 7:51 AM CDT Loren Carmona MD LAB POCT ORDERABLES - DEVIC E Final Result [facility] [place] [address] * Differential, auto (08/22/2020 11:27 PM CDT) Neutrophil abs 5.2 1.7 - 6.5 K/cumm [facility] Imm gran abs 0.1 0.0 - 0.1 K/[facility]umm [facility] Lymphocyte abs 2.6 0.8 - 3.3 K/cumm [facility] Monocyte abs 0.6 0.2 - 0.8 K/cumm [facility] Eosinophil abs 0.0 0.0 - 0.5 K/cumm [facility] Basophil abs 0.0 0.0 - 0.1 K/cumm [facility] Neutrophil pct 61.7 % [facility] Comment: Interpretive Data Percent cell count reference ranges are not reported, since discordance with absolute values may lead to misinterpretation of CBC data. Current Interpretive Data was last revised on 2017. Imm gran pct 0.6 % [facility] Comment: Interpretive Data Percent cell count reference ranges are not reported, since discordance with absolute values may lead to misinterpretation of CBC data. Current Interpretive Data was last revised on 2017. Lymphocyte pct 30.8 % [facility] Comment: Interpretive Data Percent cell count reference ranges are not reported, since discordance with absolute values may lead to misinterpretation of CBC data. Current Interpretive Data was last revised on 2017. Monocyte pct 6.6 % [facility] Comment: Interpretive Data Percent cell count reference ranges are not reported, since discordance with absolute values may lead to misinterpretation of CBC data. Current Interpretive Data was last revised on 2017. Eosinophil pct 0.1 % [facility] Comment: Interpretive Data Percent cell count reference ranges are not reported, since discordance with absolute values may lead to misinterpretation of CBC data. Current Interpretive Data was last revised on 2017. Basophil pct 0.2 % [facility] Comment: Interpretive Data Percent cell count reference ranges are not reported, since discordance with absolute values may lead to misinterpretation of CBC data. Current Interpretive Data was last revised on 2017. Blood specimen (specimen) 08/22/2020 11:27 PM CDT 08/22/2020 11:37 PM CDT Loren Carmona MD LAB BLOOD ORDERABLES Final Result Performing Organization Address City/[facility] Co de Phone Number [facility] [place] [address] * Magnesium (08/22/2020 11:27 PM CDT) [facility] Magnesium 2.0 1.4 - 2.5 mg/dL [facility] Blood specimen (specimen) 08/22/2020 11:27 PM CDT 08/22/2020 11:37 PM CDT Loren Carmona MD LAB BLOOD ORDERABLES Final Result Performing Organization Address [facility] de Phone Number [facility] Department [place] [address] * (ABNORMAL) Comprehensive metabolic panel (08/22/2020 11:27 PM CDT) [facility] Sodium 141 135 - 145 mmol/L [facility] Potassium, pl 3.4 3.3 - 4.9 mmol/L [facility] Chloride 103 97 - 110 mmol/L [facility] CO2 27 22 - 32 mmol/L [facility] Anion gap 11 2 - 15 mmol/L [facility] BUN 15 8 - 25 mg/dL [facility] Creatinine 0.80 0.80 - 1.30 mg/dL [facility] Glucose 139 70 - 199 mg/dL [facility] Comment: Interpretive Data Fasting glucose >/= 126 [...] 2017. Calcium 8.8 8.5 - 10.3 mg/dL [facility] Bilirubin, total <0.2 0.1 - 1.2 mg/dL [facility] Protein, pl 6.3(L) 6.5 - 8.5 g/dL [facility] Albumin 3.0(L) 3.5 - 5.0 g/dL [facility] Alk phos 73 40 - 130 Units/L [facility] ALT 33 7 - 55 Units/L [facility] AST 22 10 - 50 Units/L [facility] Blood specimen (specimen) 08/22/2020 11:27 PM CDT 08/22/2020 11:37 PM CDT us Amaad Rashawn Carmona MD LAB BLOOD ORDERABLES Final Result [facility] Department [place] [address] * (ABNORMAL) CBC with auto differential (08/22/2020 11:27 PM CDT) WBC 8.5 3.8 - 9.9 K/cumm [facility] Hgb 12.2(L) 13.0 - 17.5 g/dL [facility] Hct 34.9(L) 38.9 - 50.3 % [facility] Plt 362 150 - 400 K/cumm [facility] MPV 9.8 9.1 - 12.3 fL [facility] RBC 4.03(L) 4.30 - 5.80 M/cumm [facility] MCV 86.6 81.3 - 96.4 fL [facility] MCH 30.3 27.1 - 33.3 pg [facility] MCHC 35.0 32.3 - 35.7 g/dL [facility] RDW CV 12.2 11.1 - 14.9 % [facility] RDW SD 38.8 35.7 - 48.1 fL [facility] NRBC abs 0.00 0.00 - 0.01 K/cumm [facility] Blood specimen (specimen) 08/22/2020 11:27 PM CDT 08/22/2020 11:37 PM CDT us Loren Carmona MD LAB BLOOD ORDERABLES Final Result Performing Organization Address City/[facility]/ZIP Co de Phone Number [facility] [place] [address] * POCT glucose (08/22/2020 8:27 PM CDT) Glucose, POC 110 70 - 199 mg/dL [facility] Blood specimen (specimen) 08/22/2020 8:27 PM CDT 08/22/2020 8:27 PM CDT us Loren Carmona MD LAB POCT ORDERABLES - DEVIC E Final Result Performing Organization Address City/[facility] Co de Phone Number [facility] [place], [place] [id number] * (ABNORMAL) POCT glucose (08/22/2020 4:36 PM CDT) Glucose, POC 214(H) 70 - 199 mg/dL [facility] Glucose comment 1 RN Notified [facility] Blood specimen (specimen) 08/22/2020 4:36 PM CDT 08/22/2020 4:36 PM CDT us Loren Carmona MD LAB POCT ORDERABLES - DEVIC E Final Result Performing Organization Address City/[facility] [place] [address] * POCT glucose (08/22/2020 12:44 PM CDT) Glucose, POC 113 70 - 199 mg/dL [facility] Blood specimen (specimen) 08/22/2020 12:44 PM CDT 08/22/2020 12:44 PM CDT Satinderkali Carmona MD LAB POCT ORDERABLES - DEVIC E Final Result [facility] Department [place] [address] * Differential, auto (08/22/2020 10:15 AM CDT) Neutrophil abs 4.4 1.7 - 6.5 K/cumm [facility] Imm gran abs 0.0 0.0 - 0.1 K/cumm [facility] Lymphocyte abs 3.1 0.8 - 3.3 K/cumm [facility] Monocyte abs 0.5 0.2 - 0.8 K/cumm [facility] Eosinophil abs 0.0 0.0 - 0.5 K/cumm [facility] Basophil abs 0.0 0.0 - 0.1 K/cumm [facility] Neutrophil pct 54.0 % [facility] Comment: Interpretive Data Percent cell count reference ranges are not reported, since discordance with absolute values may lead to misinterpretation of CBC data. Current Interpretive Data was last revised on 2017. Imm gran pct 0.4 % [facility] Comment: Interpretive Data Percent cell count reference ranges are not reported, since discordance with absolute values may lead to misinterpretation of CBC data. Current Interpretive Data was last revised on 2017. Lymphocyte pct 38.3 % [facility] Comment: Interpretive Data Percent cell count reference ranges are not reported, since discordance with absolute values may lead to misinterpretation of CBC data. Current Interpretive Data was last revised on 2017. Monocyte pct 6.6 % [facility] Comment: Interpretive Data Percent cell count reference ranges are not reported, since discordance with absolute values may lead to misinterpretation of CBC data. Current Interpretive Data was last revised on 2017. Eosinophil pct 0.5 % [facility] Comment: Interpretive Data Percent cell count reference ranges are not reported, since discordance with absolute values may lead to misinterpretation of CBC data. Current Interpretive Data was last revised on 2017. Basophil pct 0.2 % [facility] Comment: Interpretive Data Percent cell count reference ranges are not reported, since discordance with absolute values may lead to misinterpretation of CBC data. Current Interpretive Data was last revised on 2017. Blood specimen (specimen) 08/22/2020 10:15 AM CDT 08/22/2020 10:37 AM CDT us Amaad Rashawn Carmona MD LAB BLOOD ORDERABLES Final Result [facility] Department [place] [address] * (ABNORMAL) CBC with auto differential (08/22/2020 10:15 AM CDT) WBC 8.1 3.8 - 9.9 K/cumm [facility] Hgb 12.4(L) 13.0 - 17.5 g/dL [facility] Hct 37.2(L) 38.9 - 50.3 % [facility] Plt 373 150 - 400 K/cumm [facility] MPV 9.9 9.1 - 12.3 fL [facility] RBC 4.20(L) 4.30 - 5.80 M/cumm [facility] MCV 88.6 81.3 - 96.4 fL [facility] MCH 29.5 27.1 - 33.3 pg [facility] MCHC 33.3 32.3 - 35.7 g/dL [facility] RDW CV 12.6 11.1 - 14.9 % [facility] RDW SD 40.8 35.7 - 48.1 fL [facility] NRBC abs 0.00 0.00 - 0.01 K/cumm [facility] Blood specimen (specimen) 08/22/2020 10:15 AM CDT 08/22/2020 10:37 AM CDT us Loren Carmona MD LAB BLOOD ORDERABLES Final Result [facility] Department [place] [address] * POCT glucose (08/22/2020 8:10 AM CDT) Pathologist [facility] Glucose, POC 101 70 - 199 mg/dL [facility] Blood specimen (specimen) 08/22/2020 8:10 AM CDT 08/22/2020 8:10 AM CDT Loren Carmona MD LAB POCT ORDERABLES - DEVIC E Final Result Performing Organization Address City/[facility] Co de Phone Number [facility] [place] [address] * (ABNORMAL) Differential, auto (08/22/2020 3:38 AM CDT) [facility] Neutrophil abs 4.2 1.7 - 6.5 K/cumm [facility] Imm gran abs 0.0 0.0 - 0.1 K/cumm [facility] Lymphocyte abs 3.4(H) 0.8 - 3.3 K/cumm [facility] Monocyte abs 0.5 0.2 - 0.8 K/cumm [facility] Eosinophil abs 0.0 0.0 - 0.5 K/cumm [facility] Basophil abs 0.0 0.0 - 0.1 K/cumm [facility] Neutrophil pct 52.4 % [facility] Comment: Interpretive Data Percent cell count reference ranges are not reported, since discordance with absolute values may lead to misinterpretation of CBC data. Current Interpretive Data was last revised on 2017. Imm gran pct 0.2 % [facility] Comment: Interpretive Data Percent cell count reference ranges are not reported, since discordance with absolute values may lead to misinterpretation of CBC data. Current Interpretive Data was last revised on 2017. Lymphocyte pct 41.4 % [facility] Comment: Interpretive Data Percent cell count reference ranges are not reported, since discordance with absolute values may lead to misinterpretation of CBC data. Current Interpretive Data was last revised on 2017. Monocyte pct 5.7 % [facility] Comment: Interpretive Data Percent cell count reference ranges are not reported, since discordance with absolute values may lead to misinterpretation of CBC data. Current Interpretive Data was last revised on 2017. Eosinophil pct 0.1 % [facility] Comment: Interpretive Data Percent cell count reference ranges are not reported, since discordance with absolute values may lead to misinterpretation of CBC data. Current Interpretive Data was last revised on 2017. Basophil pct 0.2 % [facility] Comment: Interpretive Data Percent cell count reference ranges are not reported, since discordance with absolute values may lead to misinterpretation of CBC data. Current Interpretive Data was last revised on 2017. Blood specimen (specimen) 08/22/2020 3:38 AM CDT 08/22/2020 3:58 AM CDT us Amaad Rashawn Carmona MD LAB BLOOD ORDERABLES Final Result [facility] Department [place] [address] * (ABNORMAL) Lupus Anticoagulant Panel plus Reflexes (08/22/2020 3:38 AM CDT) PT 12.8 9.5 - 13.6 sec [facility] INR 1.2 0.9 - 1.2 [facility] Comment: Interpretive data Oral anticoagulant therapeutic ranges: Venous thromboembolism prophylaxis or treatment: 2.0-3.0 CARDIOLOGY Standard range: 2.0-3.0 High-intensity range: 2.5-3.5 Refer to indication-specific guidelines for appropriate target ranges for prosthetic heart valve replacement. Current interpretive data was last revised on 2019. aPTT 39(H) 27 - 37 sec [facility] Comment: Interpretive Data Therapeutic heparin range: 60.0 - 94.0 seconds. Based on correlation with therapeutic heparin activity range of 0.3-0.7 Units/mL. Current interpretive data was last revised on 2020. DRVVT screen ratio 1.49(H) 0.00 - 1.20 Ratio [facility] DRVVT confirm ratio 1.27 Ratio [facility] DRVVT S/C Ratio 1.17 0.00 - 1.20 Ratio [facility] SCT Screen Ratio 1.75(H) 0.00 - 1.16 Ratio [facility] SCT Confirm Ratio 1.15 Ratio [facility] SCT S/C Ratio 1.52(H) 0.00 - 1.16 [facility] Lupus anticoagulant, interp Positive [facility] Comment: Interpretive data ?? Lupus anticoagulants (LA) [...] lupus anticoagulant detection. J Thromb Haemost. 2009; 7:9863-0541. 2. Say S. et al. International consensus statement on an update of the classification criteria for definite antiphospholipid syndrome (APS). J Thromb Haemost. 2006; 4:295-306. Current interpretive data was last revised on 2018 Blood specimen (specimen) 08/22/2020 3:38 AM CDT 08/22/2020 3:48 AM CDT us Amsharan Carmona MD LAB BLOOD ORDERABLES Final Result [facility] Department [place] [address] * (ABNORMAL) CBC with auto differential (08/22/2020 3:38 AM CDT) WBC 8.1 3.8 - 9.9 K/cumm [facility] Hgb 11.6(L) 13.0 - 17.5 g/dL [facility] Hct 34.7(L) 38.9 - 50.3 % [facility] Plt 348 150 - 400 K/cumm [facility] MPV 10.0 9.1 - 12.3 fL [facility] RBC 3.91(L) 4.30 - 5.80 M/cumm [facility] MCV 88.7 81.3 - 96.4 fL [facility] MCH 29.7 27.1 - 33.3 pg [facility] MCHC 33.4 32.3 - 35.7 g/dL [facility] RDW CV 12.5 11.1 - 14.9 % [facility] RDW SD 40.4 35.7 - 48.1 fL [facility] NRBC abs 0.00 0.00 - 0.01 K/cumm [facility] Blood specimen (specimen) 08/22/2020 3:38 AM CDT 08/22/2020 3:58 AM CDT us Amaad Rashawn Carmona MD LAB BLOOD ORDERABLES Final Result Performing Organization Address [facility] [place] [address] * Type and screen (08/22/2020 3:38 AM CDT) [facility] Denae, indirect Negative [facility] ABO Rh O Positive [facility] Blood specimen (specimen) 08/22/2020 3:38 AM CDT 08/22/2020 3:57 AM CDT Narrative [facility] - 08/22/2020 5:00 AM CDT Has the patient had Daratumumab or Isatuximab in the past 6 months?->Unknown us Loren Carmona MD LAB BLOOD BANK TEST ORDERAB LES Final Result Performing Organization Address [facility] de Phone Number [facility] [place] [address] * Magnesium (08/22/2020 3:38 AM CDT) [facility] Magnesium 2.1 1.4 - 2.5 mg/dL [facility] Blood specimen (specimen) 08/22/2020 3:38 AM CDT 08/22/2020 3:59 AM CDT Amsharan Carmona MD LAB BLOOD ORDERABLES Final Result Performing Organization Address [facility] [place] [address] * (ABNORMAL) Comprehensive metabolic panel (08/22/2020 3:38 AM CDT) [facility] Sodium 143 135 - 145 mmol/L [facility] Potassium, pl 3.9 3.3 - 4.9 mmol/L [facility] Chloride 107 97 - 110 mmol/L [facility] CO2 28 22 - 32 mmol/L [facility] Anion gap 8 2 - 15 mmol/L [facility] BUN 14 8 - 25 mg/dL [facility] Creatinine 0.88 0.80 - 1.30 mg/dL [facility] Glucose 89 70 - 199 mg/dL [facility] Comment: Interpretive Data Fasting glucose >/= 126 [...] 2017. Calcium 8.8 8.5 - 10.3 mg/dL [facility] Bilirubin, total <0.2 0.1 - 1.2 mg/dL [facility] Protein, pl 6.0(L) 6.5 - 8.5 g/dL [facility] Albumin 2.9(L) 3.5 - 5.0 g/dL [facility] Alk phos 66 40 - 130 Units/L [facility] ALT 36 7 - 55 Units/L [facility] AST 21 10 - 50 Units/L [facility] Blood specimen (specimen) 08/22/2020 3:38 AM CDT 08/22/2020 3:59 AM CDT Amaad Rashawn Carmona MD LAB BLOOD ORDERABLES Final Result [facility] Department [place] [address] * POCT glucose (08/21/2020 10:20 PM CDT) [facility] Signature Glucose, POC 80 70 - 199 mg/dL [facility] Blood specimen (specimen) 08/21/2020 10:20 PM CDT 08/21/2020 10:20 PM CDT us Loren Carmona MD LAB POCT ORDERABLES - DEVIC E Final Result Performing Organization Address [facility] Co de Phone Number [facility] [place] [address] * POCT glucose (08/21/2020 5:50 PM CDT) Pathologist [facility] Glucose, POC 107 70 - 199 mg/dL [facility] Blood specimen (specimen) 08/21/2020 5:50 PM CDT 08/21/2020 5:50 PM CDT Loren Carmona MD LAB POCT ORDERABLES - DEVIC E Final Result Performing Organization Address [facility] de Phone Number [facility] [place] [address] * Magnesium (08/21/2020 4:02 PM CDT) [facility] Magnesium 2.0 1.4 - 2.5 mg/dL [facility] Blood specimen (specimen) 08/21/2020 4:02 PM CDT 08/21/2020 4:27 PM CDT Rosa Maria Crenshaw MD LAB BLOOD ORDERABLES Fi nal Result Performing Organization Address [facility] Co de Phone Number [facility] [place] [address] * Basic metabolic panel (08/21/2020 4:02 PM CDT) [facility] Sodium 142 135 - 145 mmol/L [facility] Potassium, pl 3.9 3.3 - 4.9 mmol/L [facility] Chloride 105 97 - 110 mmol/L [facility] CO2 25 22 - 32 mmol/L [facility] Anion gap 12 2 - 15 mmol/L [facility] BUN 11 8 - 25 mg/dL [facility] Creatinine 0.84 0.80 - 1.30 mg/dL [facility] Glucose 164 70 - 199 mg/dL [facility] Comment: Interpretive Data Fasting glucose >/= 126 [...] 2017. Calcium 9.2 8.5 - 10.3 mg/dL [facility] Blood specimen (specimen) 08/21/2020 4:02 PM CDT 08/21/2020 4:27 PM CDT Rosa Maria Crenshaw MD LAB BLOOD ORDERABLES Fi nal Result Performing Organization Address [facility] Co de Phone Number [facility] Department [place] [address] * (ABNORMAL) Hemoglobin and hematocrit (08/21/2020 4:02 PM CDT) [facility] Hgb 12.8(L) 13.0 - 17.5 g/dL [facility] Hct 37.9(L) 38.9 - 50.3 % [facility] Blood specimen (specimen) 08/21/2020 4:02 PM CDT 08/21/2020 4:27 PM CDT us Loren Carmona MD LAB BLOOD ORDERABLES Final Result Performing Organization Address [facility]/ZIP Co de Phone Number [facility] Department [place] [address] * POCT glucose (08/21/2020 3:58 PM CDT) Pathologist [facility] Glucose, POC 144 70 - 199 mg/dL [facility] Blood specimen (specimen) 08/21/2020 3:58 PM CDT 08/21/2020 3:58 PM CDT Loren Carmona MD LAB POCT ORDERABLES - DEVIC E Final Result [facility] [place] [address] * (ABNORMAL) Differential, auto (08/21/2020 12:35 PM CDT) Neutrophil abs 8.1(H) 1.7 - 6.5 K/cumm [facility] Imm gran abs 0.0 0.0 - 0.1 K/cumm [facility] Lymphocyte abs 1.6 0.8 - 3.3 K/cumm [facility] Monocyte abs 0.4 0.2 - 0.8 K/cumm [facility] Eosinophil abs 0.0 0.0 - 0.5 K/cumm [facility] Basophil abs 0.0 0.0 - 0.1 K/cumm [facility] Neutrophil pct 79.8 % [facility] Comment: Interpretive Data Percent cell count reference ranges are not reported, since discordance with absolute values may lead to misinterpretation of CBC data. Current Interpretive Data was last revised on 2017. Imm gran pct 0.3 % [facility] Comment: Interpretive Data Percent cell count reference ranges are not reported, since discordance with absolute values may lead to misinterpretation of CBC data. Current Interpretive Data was last revised on 2017. Lymphocyte pct 15.3 % [facility] Comment: Interpretive Data Percent cell count reference ranges are not reported, since discordance with absolute values may lead to misinterpretation of CBC data. Current Interpretive Data was last revised on 2017. Monocyte pct 4.2 % [facility] Comment: Interpretive Data Percent cell count reference ranges are not reported, since discordance with absolute values may lead to misinterpretation of CBC data. Current Interpretive Data was last revised on 2017. Eosinophil pct 0.2 % [facility] Comment: Interpretive Data Percent cell count reference ranges are not reported, since discordance with absolute values may lead to misinterpretation of CBC data. Current Interpretive Data was last revised on 2017. Basophil pct 0.2 % [facility] Comment: Interpretive Data Percent cell count reference ranges are not reported, since discordance with absolute values may lead to misinterpretation of CBC data. Current Interpretive Data was last revised on 2017. Blood specimen (specimen) 08/21/2020 12:35 PM CDT 08/21/2020 12:51 PM CDT us Amaad Rashawn Carmona MD LAB BLOOD ORDERABLES Final Result [facility] [place] [address] * (ABNORMAL) CBC with auto differential (08/21/2020 12:35 PM CDT) WBC 10.1(H) 3.8 - 9.9 K/cumm [facility] Hgb 13.2 13.0 - 17.5 g/dL [facility] Hct 38.5(L) 38.9 - 50.3 % [facility] Plt 386 150 - 400 K/cumm [facility] MPV 9.9 9.1 - 12.3 fL [facility] RBC 4.37 4.30 - 5.80 M/cumm [facility] MCV 88.1 81.3 - 96.4 fL [facility] MCH 30.2 27.1 - 33.3 pg [facility] MCHC 34.3 32.3 - 35.7 g/dL [facility] RDW CV 12.4 11.1 - 14.9 % [facility] RDW SD 40.1 35.7 - 48.1 fL [facility] NRBC abs 0.00 0.00 - 0.01 K/cumm [facility] Blood specimen (specimen) 08/21/2020 12:35 PM CDT 08/21/2020 12:51 PM CDT us Loren Carmona MD LAB BLOOD ORDERABLES Final Result Performing Organization Address [facility] Co de Phone Number [facility] [place] [address] * POCT glucose (08/21/2020 12:29 PM CDT) Glucose, POC 88 70 - 199 mg/dL [facility] Blood specimen (specimen) 08/21/2020 12:29 PM CDT 08/21/2020 12:29 PM CDT Loren Carmona MD LAB POCT ORDERABLES - DEVIC E Final Result Performing Organization Address [facility] de Phone Number [facility] [place] [address] * POCT glucose (08/21/2020 7:37 AM CDT) Glucose, POC 85 70 - 199 mg/dL [facility] Blood specimen (specimen) 08/21/2020 7:37 AM CDT 08/21/2020 7:37 AM CDT Loren Carmona MD LAB POCT ORDERABLES - DEVIC E Final Result Performing Organization Address [facility] de Phone Number [facility] [place] [address] * (ABNORMAL) Differential, auto (08/21/2020 3:38 AM CDT) Neutrophil abs 9.8(H) 1.7 - 6.5 K/cumm [facility] Imm gran abs 0.1 0.0 - 0.1 K/cumm [facility] Lymphocyte abs 2.9 0.8 - 3.3 K/cumm [facility] Monocyte abs 0.6 0.2 - 0.8 K/cumm [facility] Eosinophil abs 0.0 0.0 - 0.5 K/cumm [facility] Basophil abs 0.0 0.0 - 0.1 K/cumm [facility] Neutrophil pct 72.7 % [facility] Comment: Interpretive Data Percent cell count reference ranges are not reported, since discordance with absolute values may lead to misinterpretation of CBC data. Current Interpretive Data was last revised on 2017. Imm gran pct 0.7 % [facility] Comment: Interpretive Data Percent cell count reference ranges are not reported, since discordance with absolute values may lead to misinterpretation of CBC data. Current Interpretive Data was last revised on 2017. Lymphocyte pct 21.7 % [facility] Comment: Interpretive Data Percent cell count reference ranges are not reported, since discordance with absolute values may lead to misinterpretation of CBC data. Current Interpretive Data was last revised on 2017. Monocyte pct 4.7 % [facility] Comment: Interpretive Data Percent cell count reference ranges are not reported, since discordance with absolute values may lead to misinterpretation of CBC data. Current Interpretive Data was last revised on 2017. Eosinophil pct 0.1 % [facility] Comment: Interpretive Data Percent cell count reference ranges are not reported, since discordance with absolute values may lead to misinterpretation of CBC data. Current Interpretive Data was last revised on 2017. Basophil pct 0.1 % [facility] Comment: Interpretive Data Percent cell count reference ranges are not reported, since discordance with absolute values may lead to misinterpretation of CBC data. Current Interpretive Data was last revised on 2017. Blood specimen (specimen) 08/21/2020 3:38 AM CDT 08/21/2020 3:49 AM CDT us Amaad Rashawn Carmona MD LAB BLOOD ORDERABLES Final Result [facility] Department [place] [address] * (ABNORMAL) CBC with auto differential (08/21/2020 3:38 AM CDT) WBC 13.5(H) 3.8 - 9.9 K/cumm [facility] Hgb 12.4(L) 13.0 - 17.5 g/dL [facility] Hct 36.3(L) 38.9 - 50.3 % [facility] Plt 368 150 - 400 K/cumm [facility] MPV 9.8 9.1 - 12.3 fL [facility] RBC 4.10(L) 4.30 - 5.80 M/cumm [facility] MCV 88.5 81.3 - 96.4 fL [facility] MCH 30.2 27.1 - 33.3 pg [facility] MCHC 34.2 32.3 - 35.7 g/dL [facility] RDW CV 12.3 11.1 - 14.9 % [facility] RDW SD 39.6 35.7 - 48.1 fL [facility] NRBC abs 0.00 0.00 - 0.01 K/cumm [facility] Blood specimen (specimen) 08/21/2020 3:38 AM CDT 08/21/2020 3:49 AM CDT Loren Carmona MD LAB BLOOD ORDERABLES Final Result Performing Organization Address City/[facility]/ZIP Co de Phone Number [facility] [place] [place] [address] * POCT glucose (08/20/2020 7:53 PM CDT) [facility] Glucose, POC 122 70 - 199 mg/dL [facility] Blood specimen (specimen) 08/20/2020 7:53 PM CDT 08/20/2020 7:53 PM CDT Loren Carmona MD LAB POCT ORDERABLES - DEVIC E Final Result Performing Organization Address City/[facility] Co de Phone Number [facility] Department [place] [address] * (ABNORMAL) Differential, auto (08/20/2020 4:54 PM CDT) Neutrophil abs 12.1(H) 1.7 - 6.5 K/cumm [facility] Imm gran abs 0.1 0.0 - 0.1 K/cumm [facility] Lymphocyte abs 0.8 0.8 - 3.3 K/cumm [facility] Monocyte abs 0.2 0.2 - 0.8 K/cumm [facility] Eosinophil abs 0.0 0.0 - 0.5 K/cumm [facility] Basophil abs 0.0 0.0 - 0.1 K/cumm [facility] Neutrophil pct 91.5 % [facility] Comment: Interpretive Data Percent cell count reference ranges are not reported, since discordance with absolute values may lead to misinterpretation of CBC data. Current Interpretive Data was last revised on 2017. Imm gran pct 0.8 % [facility] Comment: Interpretive Data Percent cell count reference ranges are not reported, since discordance with absolute values may lead to misinterpretation of CBC data. Current Interpretive Data was last revised on 2017. Lymphocyte pct 6.2 % [facility] Comment: Interpretive Data Percent cell count reference ranges are not reported, since discordance with absolute values may lead to misinterpretation of CBC data. Current Interpretive Data was last revised on 2017. Monocyte pct 1.4 % [facility] Comment: Interpretive Data Percent cell count reference ranges are not reported, since discordance with absolute values may lead to misinterpretation of CBC data. Current Interpretive Data was last revised on 2017. Eosinophil pct 0.0 % [facility] Comment: Interpretive Data Percent cell count reference ranges are not reported, since discordance with absolute values may lead to misinterpretation of CBC data. Current Interpretive Data was last revised on 2017. [facility]ophil pct 0.1 % [facility] Comment: Interpretive Data Percent cell count reference ranges are not reported, since discordance with absolute values may lead to misinterpretation of CBC data. Current Interpretive Data was last revised on 2017. Blood specimen (specimen) 08/20/2020 4:54 PM CDT 08/20/2020 5:05 PM CDT us Amaad Rashawn Carmona MD LAB BLOOD ORDERABLES Final Result Performing Organization Address [facility]/ZIP Co de Phone Number [facility] Department [place] [address] * (ABNORMAL) CBC with auto differential (08/20/2020 4:54 PM CDT) WBC 13.2(H) 3.8 - 9.9 K/cumm [facility] Hgb 12.3(L) 13.0 - 17.5 g/dL [facility] Hct 35.7(L) 38.9 - 50.3 % [facility] Plt 356 150 - 400 K/cumm [facility] MPV 9.8 9.1 - 12.3 fL [facility] RBC 4.08(L) 4.30 - 5.80 M/cumm [facility] MCV 87.5 81.3 - 96.4 fL [facility] MCH 30.1 27.1 - 33.3 pg [facility] MCHC 34.5 32.3 - 35.7 g/dL [facility] RDW CV 12.0 11.1 - 14.9 % [facility] RDW SD 38.5 35.7 - 48.1 fL [facility] NRBC abs 0.00 0.00 - 0.01 K/cumm [facility] Blood specimen (specimen) 08/20/2020 4:54 PM CDT 08/20/2020 5:05 PM CDT us Amsharan Carmona MD LAB BLOOD ORDERABLES Final Result [facility] [place] [address] * Magnesium (08/20/2020 4:54 PM CDT) Pathologist [facility] Magnesium 1.9 1.4 - 2.5 mg/dL [facility] Blood specimen (specimen) 08/20/2020 4:54 PM CDT 08/20/2020 5:05 PM CDT Amaad Rashawn Carmona MD LAB BLOOD ORDERABLES Final Result [facility] Department [place] [address] * (ABNORMAL) Comprehensive metabolic panel (08/20/2020 4:54 PM CDT) Sodium 141 135 - 145 mmol/L [facility] Potassium, pl 4.0 3.3 - 4.9 mmol/L [facility] Chloride 106 97 - 110 mmol/L [facility] CO2 25 22 - 32 mmol/L [facility] Anion gap 10 2 - 15 mmol/L [facility] BUN 11 8 - 25 mg/dL [facility] Creatinine 0.79(L) 0.80 - 1.30 mg/dL [facility] Glucose 128 70 - 199 mg/dL [facility] Comment: Interpretive Data Fasting glucose >/= 126 [...] 2017. Calcium 9.4 8.5 - 10.3 mg/dL [facility] Bilirubin, total <0.2 0.1 - 1.2 mg/dL [facility] Protein, pl 6.5 6.5 - 8.5 g/dL [facility] Albumin 3.1(L) 3.5 - 5.0 g/dL [facility] Alk phos 77 40 - 130 Units/L [facility] ALT 35 7 - 55 Units/L [facility] AST 16 10 - 50 Units/L [facility] Blood specimen (specimen) 08/20/2020 4:54 PM CDT 08/20/2020 5:05 PM CDT Loren Carmona MD LAB BLOOD ORDERABLES Final Result Performing Organization Address [facility] de Phone Number [facility] [place] [address] * POCT glucose (08/20/2020 4:38 PM CDT) Glucose, POC 156 70 - 199 mg/dL [facility] Blood specimen (specimen) 08/20/2020 4:38 PM CDT 08/20/2020 4:38 PM CDT Loren Carmona MD LAB POCT ORDERABLES - DEVIC E Final Result Performing Organization Address [facility] de Phone Number [facility] [place] [address] * POCT glucose (08/20/2020 1:08 PM CDT) Glucose, POC 110 70 - 199 mg/dL [facility] Blood specimen (specimen) 08/20/2020 1:08 PM CDT 08/20/2020 1:08 PM CDT Loren Carmona MD LAB POCT ORDERABLES - DEVIC E Final Result Performing Organization Address [facility] [place] [address] * (ABNORMAL) Differential, auto (08/20/2020 8:18 AM CDT) Neutrophil abs 8.4(H) 1.7 - 6.5 K/cumm [facility] Imm gran abs 0.0 0.0 - 0.1 K/cumm [facility] Lymphocyte abs 0.8 0.8 - 3.3 K/cumm [facility] Monocyte abs 0.2 0.2 - 0.8 K/cumm [facility] Eosinophil abs 0.0 0.0 - 0.5 K/cumm [facility] Basophil abs 0.0 0.0 - 0.1 K/cumm [facility] Neutrophil pct 88.8 % [facility] Comment: Interpretive Data Percent cell count reference ranges are not reported, since discordance with absolute values may lead to misinterpretation of CBC data. Current Interpretive Data was last revised on 2017. Imm gran pct 0.4 % [facility] Comment: Interpretive Data Percent cell count reference ranges are not reported, since discordance with absolute values may lead to misinterpretation of CBC data. Current Interpretive Data was last revised on 2017. Lymphocyte pct 8.4 % [facility] Comment: Interpretive Data Percent cell count reference ranges are not reported, since discordance with absolute values may lead to misinterpretation of CBC data. Current Interpretive Data was last revised on 2017. Monocyte pct 2.3 % [facility] Comment: Interpretive Data Percent cell count reference ranges are not reported, since discordance with absolute values may lead to misinterpretation of CBC data. Current Interpretive Data was last revised on 2017. Eosinophil pct 0.0 % [facility] Comment: Interpretive Data Percent cell count reference ranges are not reported, since discordance with absolute values may lead to misinterpretation of CBC data. Current Interpretive Data was last revised on 2017. Basophil pct 0.1 % [facility] Comment: Interpretive Data Percent cell count reference ranges are not reported, since discordance with absolute values may lead to misinterpretation of CBC data. Current Interpretive Data was last revised on 2017. Blood specimen (specimen) 08/20/2020 8:18 AM CDT 08/20/2020 8:47 AM CDT us Amaad Rashawn Carmona MD LAB BLOOD ORDERABLES Final Result [facility] Department [place] [address] * (ABNORMAL) CBC with auto differential (08/20/2020 8:18 AM CDT) WBC 9.4 3.8 - 9.9 K/cumm [facility] Hgb 12.7(L) 13.0 - 17.5 g/dL [facility] Hct 37.1(L) 38.9 - 50.3 % [facility] Plt 354 150 - 400 K/cumm [facility] MPV 10.0 9.1 - 12.3 fL [facility] RBC 4.24(L) 4.30 - 5.80 M/cumm [facility] MCV 87.5 81.3 - 96.4 fL [facility] MCH 30.0 27.1 - 33.3 pg [facility] MCHC 34.2 32.3 - 35.7 g/dL [facility] RDW CV 12.1 11.1 - 14.9 % [facility] RDW SD 38.6 35.7 - 48.1 fL [facility] NRBC abs 0.00 0.00 - 0.01 K/cumm [facility] Blood specimen (specimen) 08/20/2020 8:18 AM CDT 08/20/2020 8:47 AM CDT us Amaad Rashawn Carmona MD LAB BLOOD ORDERABLES Final Result [facility] Department [place] [address] * (ABNORMAL) VRE culture, surveillance Stool (08/20/2020 2:46 AM CDT) Report Final Report: Enterococcus species, 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 (.) [facility] Organism ENTEROCOCCUS SPECIES, VANCOMYCIN RESISTANT [facility] Stool 08/20/2020 2:46 AM CDT 08/20/2020 11:31 PM CDT Narrative [facility] - 08/21/2020 10:23 PM CDT Testing performed by [facility] ([phone]). us Loren Carmona MD LAB MICROBIOLOGY - GENERAL ORDERABLES Final Result Performing Organization Address [facility] Co de Phone Number [facility] Department [place] [address] * (ABNORMAL) Haptoglobin (08/20/2020 2:46 AM CDT) Pathologist [facility] Haptoglobin 380.0(H) 30.0 - 200.0 mg/dL [facility] Blood specimen (specimen) 08/20/2020 2:46 AM CDT 08/20/2020 2:59 AM CDT us Loren Carmona MD LAB BLOOD ORDERABLES Final Result Performing Organization Address [facility] Co de Phone Number [facility] Department [place] [address] * Lactate dehydrogenase (LD) (08/20/2020 2:46 AM CDT) Pathologist [facility] Lactate dehydrogenase (LDH) 184 100 - 250 Units/L [facility] Blood specimen (specimen) 08/20/2020 2:46 AM CDT 08/20/2020 2:59 AM CDT Loren Carmona MD LAB BLOOD ORDERABLES Final Result Performing Organization Address City/[facility] Co de Phone Number [place], [place] [id number] * (ABNORMAL) Differential, auto (08/20/2020 2:46 AM CDT) Pathologist [facility] Neutrophil abs 9.1(H) 1.7 - 6.5 K/cumm [facility] Imm gran abs 0.0 0.0 - 0.1 K/cumm [facility] Lymphocyte abs 0.6(L) 0.8 - 3.3 K/cumm [facility] Monocyte abs 0.1(L) 0.2 - 0.8 K/cumm [facility] Eosinophil abs 0.0 0.0 - 0.5 K/cumm [facility] Basophil abs 0.0 0.0 - 0.1 K/cumm [facility] Neutrophil pct 93.0 % [facility] Comment: Interpretive Data Percent cell count reference ranges are not reported, since discordance with absolute values may lead to misinterpretation of CBC data. Current Interpretive Data was last revised on 2017. Imm gran pct 0.3 % [facility] Comment: Interpretive Data Percent cell count reference ranges are not reported, since discordance with absolute values may lead to misinterpretation of CBC data. Current Interpretive Data was last revised on 2017. Lymphocyte pct 5.8 % [facility] Comment: Interpretive Data Percent cell count reference ranges are not reported, since discordance with absolute values may lead to misinterpretation of CBC data. Current Interpretive Data was last revised on 2017. Monocyte pct 0.8 % [facility] Comment: Interpretive Data Percent cell count reference ranges are not reported, since discordance with absolute values may lead to misinterpretation of CBC data. Current Interpretive Data was last revised on 2017. Eosinophil pct 0.0 % [facility] Comment: Interpretive Data Percent cell count reference ranges are not reported, since discordance with absolute values may lead to misinterpretation of CBC data. Current Interpretive Data was last revised on 2017. Basophil pct 0.1 % [facility] Comment: Interpretive Data Percent cell count reference ranges are not reported, since discordance with absolute values may lead to misinterpretation of CBC data. Current Interpretive Data was last revised on 2017. Blood specimen (specimen) 08/20/2020 2:46 AM CDT 08/20/2020 3:00 AM CDT us Amaad Rashawn Carmona MD LAB BLOOD ORDERABLES Final Result [facility] Department [place] [address] * (ABNORMAL) CBC with auto differential (08/20/2020 2:46 AM CDT) WBC 9.8 3.8 - 9.9 K/cumm [facility] Hgb 12.7(L) 13.0 - 17.5 g/dL [facility] Hct 37.2(L) 38.9 - 50.3 % [facility] Plt 340 150 - 400 K/cumm [facility] MPV 9.9 9.1 - 12.3 fL [facility] RBC 4.24(L) 4.30 - 5.80 M/cumm [facility] MCV 87.7 81.3 - 96.4 fL [facility] MCH 30.0 27.1 - 33.3 pg [facility] MCHC 34.1 32.3 - 35.7 g/dL [facility] RDW CV 12.2 11.1 - 14.9 % [facility] RDW SD 39.2 35.7 - 48.1 fL [facility] NRBC abs 0.00 0.00 - 0.01 K/cumm [facility] Blood specimen (specimen) 08/20/2020 2:46 AM CDT 08/20/2020 3:00 AM CDT us Loren Carmona MD LAB BLOOD ORDERABLES Final Result [facility] [place] [address] * Magnesium (08/20/2020 2:46 AM CDT) Pathologist [facility] Magnesium 2.1 1.4 - 2.5 mg/dL [facility] Blood specimen (specimen) 08/20/2020 2:46 AM CDT 08/20/2020 2:59 AM CDT us Amaad Rashawn Carmona MD LAB BLOOD ORDERABLES Final Result [facility] [place] [address] * (ABNORMAL) Comprehensive metabolic panel (08/20/2020 2:46 AM CDT) Sodium 140 135 - 145 mmol/L [facility] Potassium, pl 4.0 3.3 - 4.9 mmol/L [facility] Chloride 104 97 - 110 mmol/L [facility] CO2 28 22 - 32 mmol/L [facility] Anion gap 8 2 - 15 mmol/L [facility] BUN 12 8 - 25 mg/dL [facility] Creatinine 0.93 0.80 - 1.30 mg/dL [facility] Glucose 174 70 - 199 mg/dL [facility] Comment: Interpretive Data Fasting glucose >/= 126 [...] 2017. Calcium 8.9 8.5 - 10.3 mg/dL [facility] Bilirubin, total 0.2 0.1 - 1.2 mg/dL [facility] Protein, pl 6.7 6.5 - 8.5 g/dL [facility] Albumin 3.2(L) 3.5 - 5.0 g/dL [facility] Alk phos 79 40 - 130 Units/L [facility] ALT 41 7 - 55 Units/L [facility] AST 20 10 - 50 Units/L [facility] Blood specimen (specimen) 08/20/2020 2:46 AM CDT 08/20/2020 2:59 AM CDT us Amaad Rashawn Carmona MD LAB BLOOD ORDERABLES Final Result [facility] [place] [address] * (ABNORMAL) Calprotectin, fecal (08/20/2020 2:46 AM CDT) [facility] Calprotectin, fecal 98.9(H) <=50.0 (Normal) mcg/g [facility] Comment: Interpretation: Borderline (50.1-120.0 mcg/g) Test Performed by: [facility] [address] [place] [address] Website Programmer: Beni Boss M.D. Ph.D.; CLIA# [id number] Stool 08/20/2020 2:46 AM CDT 08/20/2020 3:42 AM CDT us Loren Carmona MD LAB BODY FLUIDS AND STOOLS ORDERABLES Final Result Performing Organization Address [facility] de Phone Number [facility] [place] [address] * C. difficile testing Stool (08/20/2020 2:46 AM CDT) [facility] C. diff result Negative, free toxin Negative , free toxin [facility] C. diff interp Negative for toxigenic Clostridioides (Clostridium) difficile. Analysis was performed using an enzyme immunoassay that detects C. difficile toxin(s) in feces. [facility] Stool 08/20/2020 2:46 AM CDT 08/20/2020 3:09 AM CDT us Loren Carmona MD LAB MICROBIOLOGY - GENERAL ORDERABLES Final Result Performing Organization Address [facility] de Phone Number [facility] [place] [address] * Stool culture Stool Rectum (08/20/2020 2:46 AM CDT) [facility] Direct Specimen Exam Shiga Toxin Testing: Antigen detection assay for Shiga-toxin NEGATIVE for Shiga Toxin 1 and Shiga Toxin 2. [facility] Report Final Report: No growth of enteric bacterial pathogens [facility] Stool (Rectum) 08/20/2020 2: 46 AM CDT 08/20/2020 3:09 AM CDT Narrative [facility] - 08/24/2020 8:46 AM CDT Testing performed by [facility] ([phone]). Routine stool cultures include procedures to detect Salmonella, Shigella, Edwardsiella, Aeromonas, Pleisiomonas, Campylobacter, Yersinia, E. coli O157, and Shiga-like toxins. ?? Vibrio is cultured only upon special request. ??If Vibrio is suspected, please call the laboratory at [phone]. Interpretive data was last updated July 30, 2016. Amaad Rashawn Carmona MD LAB MICROBIOLOGY - GENERAL ORDERABLES Final Result Performing Organization Address City/[facility] Co de Phone Number [facility] [place] [address] * Protein / creatinine ratio, urine, random (08/19/2020 5:24 PM CDT) [facility] Protein, ur, quant 7.8 mg/dL [facility] Comment: Interpretive Data No reference range established. Current interpretive data was last revised 2018. Creatinine Ur 78.6 mg/dL [facility] Comment: Interpretive Data No reference range established. Current interpretive data was last revised 2018. Protein/creatinin e ratio 99.2 0.0 - 180.0 mg/g CR [facility] Urine 08/19/2020 5:24 PM CDT 08/19/2020 5:35 PM CDT Amaad Rashawn Carmona MD LAB URINE ORDERABLES Final Result Performing Organization Address [facility] Co de Phone Number [facility] [place] [address] * Blood culture Blood Forearm, right (08/19/2020 [...] organism identification may be performed using the [employer] Gram-Positive Blood Culture Assay. This assay detects microbial DNA in positive blood culture broth via hybridization of target DNA to capture oligonucleotides on a microarray. This assay has been cleared by the [place] Food and Drug Administration and its performance characteristics have been verified by the [facility]biology [facility]. 5. ?For questions about this culture, contact the Microbiology Laboratory at [phone]. Interpretive data was last revised on 2019. us Jose Maloney MD LAB MICROBIOLOGY - GENERAL OR DERABLES Final Result [facility] [place] [address] * Blood culture Blood Forearm, left (08/19/2020 [...] organism identification may be performed using the Factabaseigene Gram-Positive Blood Culture Assay. This assay detects microbial DNA in positive blood culture broth via hybridization of target DNA to capture oligonucleotides on a microarray. This assay has been cleared by the [place] Food and Drug Administration and its performance characteristics have been verified by the [facility]biology Laboratory. 5. ?For questions about this culture, contact the Microbiology Laboratory at [phone]. Interpretive data was last revised on 2019. us Jose Maloney MD LAB MICROBIOLOGY - GENERAL OR DERABLES Final Result MARIN WHITEHEAD [facility] Department [place] [address] * XR Chest Pa Lateral 2 Views (08/19/2020 12:11 PM CDT) Anatomical Region Laterality Modality Body, Chest N/A Computed Radiogr aphy 08/19/2020 3:02 PM CDT Impressions 08/19/2020 4:36 PM CDT The current study is compared with the renewable energy consultant radiographs of the CTs dated 12/06/2017 and [...] The current study is compared with the renewable energy consultant radiographs of the CTs dated 12/06/2017 and [...] CDT 08/19/2020 4:29 PM CDT Narrative PATHOLOGY [facility] - 08/23/2020 3:38 PM CDT EPIC results best viewed via link to PDF [facility] of Surgical [place] [address] SURGICAL PATHOLOGY REPORT FINAL Patient Name: ?? CHADD RECIO Gender: ??M : ??1950 (Age: 70) Address: ??[address] [place] [address] ??[id number] Hospital #: ??[id number] Taken:08/19/2020 Received:08/19/2020 Reported: 08/23/2020 Patient Type: [facility] Inpatient ?? Service: Medical Location: [facility] ADMT Physician(s): ??Meli Cornejo M.D. Tawanna Avalos M.D. Giovani Rodriguez M.D. Annabelle Donald MD Diagnosis: A. 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 ??Skin, right thigh, biopsy for direct immunofluorescence: ? Negative direct immunofluorescence [facility]/08/23/2020 10:09 By this signature, I attest that [...] Dermatopathology Center, ??Department of Pathology ??and Immunology, [facility], [address] [place] [address], [address], [place] ??[address] ?? CLIA # [id number] Isiah Chow M.D. History: The patient is [...] direct immunofluorescence. axxm/08/19/2020 18:21 PA(s): MAGDALENE Cuba ([facility]) By this signature, I attest that the above diagnosis is based upon my personal examination of the slides(and/or other material). Krysten Whalen MD Addenda/Procedures The performance characteristics of some immunohistochemical stains, fluorescence in-situ hybridization tests and immunophenotyping by flow cytometry cited in this report (if any) were determined by the Surgical Pathology Department at [facility] as part of an ongoing quality control tech program and in compliance with federally mandated [...] determined by the Surgical Pathology Department of [facility]. ??It has not been cleared or approved by the U. S. Food and Drug Administration. IMAGES AND SCANNED DOCUMENTS, IF INCLUDED, ONLY VIEWABLE IN PDF VERSION OF REPORT Giovani Rodriguez MD LAB PATHOLOGY ORDERABLES Elizabeth lynn Result PATHOLOGY [facility] 3rd Floor [place], [place] [phone] * N. gonorrhoeae/C. trachomatis Amplification Urine (08/19/2020 9:59 AM CDT) C. trachomatis Not Detected Not Detected MARIN GERMAN N. gonorrhoeae Not Detected Not Detected [facility] Comment: Interpretive Data Testing performed by the [facility] Laboratory. This assay detects Chlamydia trachomatis and [...] GENERAL ORDERABLES Final Result Performing Organization Address [facility] [place] [address] * BRAYAN Antibody Evaluation with Reflex (08/19/2020 6:15 AM CDT) BRAYAN ab Negative Negative [facility] Comment: Interpretive Data Positive Screens will be reflexed to specific testing for the following antigens: Vane-1 Ab, CLIENT SERVICE AND CONSULTING MANAGER Ab, Scl-70 Ab, Johnston Ab, SS-A/Ro Ab, and SS-B/La Ab. Further testing for dsDNA, Centromere, or Ribosomal P antibodies is suggested in patient with a positive screen and negative specific antibodies. Current interpretive data was last revised on 16. Blood specimen (specimen) 08/19/2020 6:15 AM CDT 08/19/2020 6:29 AM CDT Loren Carmona MD LAB BLOOD ORDERABLES Final Result Performing Organization Address [facility] [place] [address] * (ABNORMAL) Anti-double stranded DNA antibodies (08/19/2020 6:15 AM CDT) dsDNA Ab 6.0(H) <=4.0 IUnits/mL [facility] Comment: Interpretive Data Negative: < or = 4 IUnits/mL Indeterminate: 5 - 9 IUnits/mL Positive: > or = 10 IUnits/mL Current interpretive data was last revised on 2016. Blood specimen (specimen) 08/19/2020 6:15 AM CDT 08/19/2020 6:29 AM CDT Loren Carmona MD LAB BLOOD ORDERABLES Final Result Performing Organization Address [facility] de Phone Number [facility] [place] [address] * (ABNORMAL) Hepatic function panel (08/19/2020 6:15 AM CDT) [facility] Bilirubin, total 0.3 0.1 - 1.2 mg/dL [facility] Bilirubin, direct <0.2 0.1 - 0.3 mg/dL [facility] Protein, pl 5.9(L) 6.5 - 8.5 g/dL [facility] Albumin 2.7(L) 3.5 - 5.0 g/dL [facility] Alk phos 78 40 - 130 Units/L [facility] ALT 47 7 - 55 Units/L [facility] AST 32 10 - 50 Units/L [facility] Blood specimen (specimen) 08/19/2020 6:15 AM CDT 08/19/2020 6:29 AM CDT us Giovani Rodriguez MD LAB BLOOD ORDERABLES Final Re sult [facility] [place] [address] * Hepatitis B core antibody, total (08/19/2020 6:15 AM CDT) [facility] Hep B core IgG/IgM Nonreactive Nonreactive [facility] Blood specimen (specimen) 08/19/2020 6:15 AM CDT 08/19/2020 6:29 AM CDT us Loren Carmona MD LAB MICROBIOLOGY - GENERAL ORDERABLES [place] [address] * Hepatitis B surface antibody (immune status) (08/19/2020 6:15 AM CDT) [facility] HBsAb (immune status) Reactive [facility] Comment: Interpretive Data Nonreactive: This result is [...] HBsAb (immune status) index 257.8 mIUnits/m L [facility] Blood specimen (specimen) 08/19/2020 6:15 AM CDT 08/19/2020 6:29 AM CDT us Loren Carmona MD LAB MICROBIOLOGY - GENERAL ORDERABLES Final Result Performing Organization Address [facility] Co de Phone Number [facility] Department [place] [address] * Hepatitis B Surface Antigen (08/19/2020 6:15 AM CDT) HepBsAg Nonreactive Nonreactive [facility] Blood specimen (specimen) 08/19/2020 6:15 AM CDT 08/19/2020 6:29 AM CDT us Loren Carmona MD LAB MICROBIOLOGY - GENERAL ORDERABLES Edited Result - Final Performing Organization Address [facility] Co de Phone Number [facility] Department [place] [address] * C4 complement (08/19/2020 6:15 AM CDT) Complement C4 24.6 10.0 - 40.0 mg/dL [facility] Blood specimen (specimen) 08/19/2020 6:15 AM CDT 08/19/2020 6:29 AM CDT us Loren Carmona MD LAB BLOOD ORDERABLES Final Result Performing Organization Address [facility] Co de Phone Number [facility] [place] [address] * C3 complement (08/19/2020 6:15 AM CDT) [facility] Complement C3 128.0 90.0 - 180.0 mg/dL [facility] Blood specimen (specimen) 08/19/2020 6:15 AM CDT 08/19/2020 6:29 AM CDT Loren Carmona MD LAB BLOOD ORDERABLES Final Result [facility] [place] [address] * Hepatitis C antibody (08/19/2020 6:15 AM CDT) [facility] Hep C Ab Nonreactive Nonreactive [facility] Comment:Antibodies to HCV no t detected. Does NOT exclude the possibility of recent exposure to HCV. Blood specimen (specimen) 08/19/2020 6:15 AM CDT 08/19/2020 6:29 AM CDT Loren Carmona MD LAB MICROBIOLOGY - GENERAL ORDERABLES Edited Result - Final Performing Organization Address [facility] Co de Phone Number [facility] Department [place] [address] * Rheumatoid factor (08/19/2020 6:15 AM CDT) [facility] Rheumatoid factor, quant <10.0 0.1 - 15.0 IUnits/mL [facility] Blood specimen (specimen) 08/19/2020 6:15 AM CDT 08/19/2020 6:29 AM CDT us Loren Carmona MD LAB BLOOD ORDERABLES Final Result [facility] Department [place] [address] * Anti-Neutrophilic Cytoplasmic Antibody (ANCA) with Reflex to MPO and PR3 Abs (08/19/2020 6:15 AM CDT) Pathologist [facility] ANCA Negative [facility] Blood specimen (specimen) 08/19/2020 6:15 AM CDT 08/19/2020 6:29 AM CDT us Loren Carmona MD LAB BLOOD ORDERABLES Final Result Performing Organization Address City/[facility]/[place] [address] * JONNA Reflex to Quantitative and dsDNA (08/19/2020 6:15 AM CDT) [facility] JONNA Positive 1:160 [facility] Comment: Interpretive Data Normal range for JONNA [...] revised on 2019. JONNA, quant 1:160 titer [facility] JONNA, interp Speckled [facility] Blood specimen (specimen) 08/19/2020 6:15 AM CDT 08/19/2020 6:29 AM CDT us Loren Carmona MD LAB BLOOD ORDERABLES Final Result [facility] [place] [address] * (ABNORMAL) CRP (acute phase) (08/19/2020 6:15 AM CDT) Pathologist [facility] CRP 47.8(H) <=10.0 mg/L [facility] Blood specimen (specimen) 08/19/2020 6:15 AM CDT 08/19/2020 6:29 AM CDT Loren Carmona MD LAB BLOOD ORDERABLES Final Result Performing Organization Address [facility] Co de Phone Number [facility] [place] [place] [address] * (ABNORMAL) Erythrocyte sedimentation rate (08/19/2020 6:15 AM CDT) [facility] Erythrocyte sedimentation rate 31(H) 1 - 20 mm/hr [facility] Blood specimen (specimen) 08/19/2020 6:15 AM CDT 08/19/2020 6:30 AM CDT Loren Carmona MD LAB BLOOD ORDERABLES Final Result Performing Organization Address [facility] de Phone Number [facility] [place] [employer] [place] [address] * HIV 1/2 Antibody plus p24 Antigen (08/19/2020 6:15 AM CDT) [facility] HIV 1/2 ab + p24 ag Nonreactive Nonreactive [facility] Comment: Nonreactive for HIV-1 antigen and HIV-1/HIV-2 antibodies. No laboratory evidence of HIV infection. If acute HIV infection is suspected, consider testing for HIV-1 RNA. Blood specimen (specimen) 08/19/2020 6:15 AM CDT 08/19/2020 6:29 AM CDT us Loren Carmona MD LAB MICROBIOLOGY - GENERAL ORDERABLES Final Result Performing Organization Address [facility]/ZIP Co de Phone Number [facility] [place] [employer] [place] [address] * CT Abdomen Pelvis W Contrast (08/19/2020 [...] WBC, ur 0-5 0 - 5 /HPF [facility] RBC, ur 11-20(A) 0 - 2 /HPF [facility] Epithelial cells, squamous, ur 1-5 0 - 5 /HPF [facility] Mucous, ur Present(A) [facility] Hyaline casts, ur 1-5 0 - 10 /LPF [facility] Culture Reflex Comment Reflex conditions for urine culture (WBC >10) not met. [facility] Urine 08/19/2020 12:2 2 AM CDT 08/19/2020 12:30 AM CDT us Dann Aldana MD LAB URINE ORDERABLES Final R esult [facility] [place] [address] * (ABNORMAL) Urinalysis reflex to microscopic and culture Urine (08/19/2020 12:22 AM CDT) Color, ur Yellow Yellow [facility] Clarity, ur Cloudy(A) Clear [facility] Specific gravity, ur 1.020 1.010 - 1.025 [facility] pH, urine 6 [facility] Protein, ur ql 1+(A) Negative [facility] Glucose, ur ql Negative Negative [facility] Ketones, ur Negative Negative [facility] Bilirubin, ur Negative Negative [facility] Blood, ur 2+(A) Negative [facility] Urobilinogen, ur <2.0 <2.0 mg/dL [facility] Nitrite, ur Negative Negative [facility] Leukocyte esterase, ur Negative Negative [facility] UA reflex comment Reflex to microscopic UA will be performed. [facility] Urine 08/19/2020 12:2 2 AM CDT 08/19/2020 12:30 AM CDT Narrative [facility] - 08/19/2020 12:55 AM CDT ?? Urine pH is affected by diet, medications, systemic acid-base disturbances, and renal tubular function. ??pH may affect urinary stone formation. ??For example, urine pH below 6.0 may help reduce the tendency for calcium phosphate stones and pH greater than 6.0 may reduce the tendency for uric acid stone formation. Source: [facility] [employer]. Last revised 04-04-2017 Dann Aldana MD LAB MICROBIOLOGY - GENERAL O RDERABLES Final Result Performing Organization Address City/[facility]/[place] [address] * (ABNORMAL) Fibrinogen (08/19/2020 12:05 AM CDT) Pathologist [facility] Fibrinogen 601(H) 170 - 400 mg/dL [facility] Blood specimen (specimen) 08/19/2020 12:05 AM CDT 08/19/2020 1:33 AM CDT Notinfile Unknown LAB BLOOD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
--- OUTSIDE RECORDS SUMMARY | 2024-03-22 23:49 | XMS_ITS | Clinical Summary ---
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 Gender Identity Not on file Sexual Orientation Not on file Obstetrics History Last Filed Vital Signs Vital Sign Reading Time Taken Comments Blood Pressure 138/99 05/24/2021 11:15 AM MAGNETO REPAIRER Pulse 74 05/24/2021 11:15 AM MAGNETO REPAIRER Temperature 36.5 ??C (97.7 ??F) 05/24/2021 11:[address] Respiratory Rate 18 05/24/2021 11:15 AM MAGNETO REPAIRER Oxygen Saturation 94% 05/24/2021 11:15 AM MAGNETO REPAIRER Inhaled Oxygen Concentration - - Weight 102.1 kg (225 lb) 05/21/2021 7:44 PM MAGNETO REPAIRER Height 177.8 cm (5' 10 ) 05/21/2021 7:44 PM MAGNETO REPAIRER Body Mass Index 32.28 05/21/2021 7:44 PM MAGNETO REPAIRER Plan of Treatment Health Maintenance Due Date [...] CDT) Hep C Ab Nonreactive Nonreactive [facility] Comment:Antibodies to HCV no t detected. Does NOT exclude the possibility of recent exposure to HCV. Blood specimen (specimen) 08/19/2020 6:15 AM CDT 08/19/2020 6:29 AM CDT Loren Carmona MD LAB MICROBIOLOGY - GENERAL ORDERABLES Edited Result - Final [facility] [place] [address] * CT Abdomen Pelvis W Contrast (08/19/2020 [...] by: Chon Burton M.D. Dann Aldana MD IMG CT PROCEDURES Edited Res ult - Final from Last 3 Months or Most Recently Relevant to Health Maintenance Insurance [facility] [address] Member Subscriber Plan / Payer ( fective 2013-Present) Name:Humza Recio Relation to Subscriber:Self Name:Humza Recio Payer ID:[id number] (NAIC) Group ID:[id number] Type:[employer] Address: [address] MEDICARE MEDICARE Advance Directives For more information, please contact: [phone] * Full Code (Latest Code Status on File) Date Activated Date Inactivated Comments 05/22/2021 2:32 AM 05/24/2021 7:04 PM * Full Code Date Activated Date Inactivated Comments 08/19/2020 5:38 AM 08/24/2020 8:46 PM Care Teams Magazine Keeper Relationship Specialty Start Date End Date Stephan Donald MD [address] [place] [address] PCP - General 12/16/17 Chong López MD [address] [place] [address] Referring Physician Cardiology 01/01/22 Annika Daniel, cpr ambulance driver Failure Coordinator Transplant 04/24/23
--- OUTSIDE RECORDS SUMMARY | 2024-03-22 23:49 | XMS_ITS | Encounter Summary ---
Author Organization [facility] [employer] [facility] Address [address] [place] [address] Care Team Providers Care Field Assembly Supervisor Name Role Phone Annabelle Donald MD Primary Care Provider Encounter Details Date Type Department Care Team (Late st Contact Info) Description 08/15/2023 Orders Only [facility] Oncology and Hematology - Mauricio [address] [place] [address] Nancy Sebastian FNP [address] [facility] [address] [place] [address] Social History Tobacco Use Types [...] on filedocumented in this encounter Care Teams Field Assembly Supervisor Relationship Specialty Start Date End Date Annabelle Donald MD PCP - General Internal Medicine 07/30/23 documented as of this encounter
--- OUTSIDE RECORDS SUMMARY | 2024-03-22 23:49 | XMS_ITS | Encounter Summary ---
Author Organization [facility] Address [address] [place] [address] Phone Care Team Providers Care Box Cutter Name Role Phone Stephan Donald MD Primary Care Provide r Encounter Details Date Type Department Care Team (Latest Contact Info) Description 12/16/2020 10:00 AM CDT Office Visit [facility] Rheumatology [address] [facility] Advanced Medicine 5th [place] [address] [place] [address] José Miguel Piedra MD [address] [place], [place] [id number] Leukocytoclastic vasculitis (CMS/HCC) (HCC) (Primary Dx) Social History Tobacco Use Types Packs/Day Years Used Date Smoking Tobacco: Former Cigarettes Q uit: 09/17/2016 Vaping Smokeless Tobacco: Former Alcohol Use Standard Drinks/Week Comments Defer 0 (1 standard drink = 0.6 oz pur e alcohol) Sex and Gender Information Value Date Recorded Sex Assigned at Not on file Legal Sex Male 2:59 AM BOOK CUTTER Gender Identity Not on file Sexual Orientation [...] Piedra MD - 12/16/2020 10:00 AM CDT [facility] Division of Rheumatology SUBJECTIVE: [...] a self-limited disease and does not require retirement immunosuppressions typically - check dsDNA, C3, C4, [...] Reflex, Serum (12/16/2020 11:04 AM CDT) Pathologist [facility] Protein, sr 6.9 6.2 - 8.2 g/dL [facility] Albumin 4.1 3.2 - 5.0 g/dL [facility] Alpha-1 globulin 0.3 0.2 - 0.4 g/dL [facility] Alpha-2 globulin 0.7 0.5 - 1.0 g/dL [facility] Beta-1 globulin 0.4 0.3 - 0.6 g/dL [facility] Beta-2 globulin 0.5 0.2 - 0.6 g/dL [facility] Gamma globulin 0.9 0.5 - 1.7 g/dL [facility] SPEP interp Please see comment [facility] Comment:No apparent monoclon al peak Blood 12/16/2020 11:0 4 AM CDT 12/16/2020 11:33 AM CDT José Miguel Piedra MD LAB BLOOD ORDERABLES Final Resul t Performing Organization Address [facility] de Phone Number [facility] [place] [address] * Protein / creatinine ratio, urine, random (12/16/2020 11:04 AM CDT) Pathologist [facility] Protein, ur, quant 24.2 mg/dL [facility] Comment: Interpretive Data No reference range established. Current interpretive data was last revised 2018. Creatinine Ur 308.1 mg/dL [facility] Comment: Interpretive Data No reference range established. Current interpretive data was last revised 2018. Protein/creatinin e ratio 78.5 0.0 - 180.0 mg/g CR [facility] Urine 12/16/2020 11:0 4 AM CDT 12/16/2020 11:33 AM CDT us José Miguel Piedra MD LAB URINE ORDERABLES Final Resul t Performing Organization Address City/[facility] Co de Phone Number [facility] Department [place] [address] * (ABNORMAL) Urinalysis reflex to microscopic (12/16/2020 11:04 AM CDT) Color, ur Marci Yellow [facility] Clarity, ur Clear Clear [facility] Specific gravity, ur 1.027(H) 1.010 - 1.025 [facility] pH, urine 5 [facility] Protein, ur ql 1+(A) Negative [facility] Glucose, ur ql Negative Negative [facility] Ketones, ur Negative Negative [facility] Bilirubin, ur Negative Negative [facility] Blood, ur Negative Negative [facility] Urobilinogen, ur 4.0(A) <2.0 mg/dL [facility] Nitrite, ur Negative Negative [facility] Leukocyte esterase, ur Negative Negative [facility] UA reflex comment Reflex to microscopic UA will be performed. [facility] Urine 12/16/2020 11:0 4 AM CDT 12/16/2020 11:33 AM CDT Narrative [facility] - 12/16/2020 11:45 AM CDT ?? Urine pH is affected by diet, medications, systemic acid-base disturbances, and renal tubular function. ??pH may affect urinary stone formation. ??For example, urine pH below 6.0 may help reduce the tendency for calcium phosphate stones and pH greater than 6.0 may reduce the tendency for uric acid stone formation. Source: [facility] [employer]. Last revised 04-04-2017 us José Miguel Piedra MD LAB URINE ORDERABLES Final Resul t [facility] Department [place] [address] * Erythrocyte sedimentation rate (12/16/2020 11:04 AM CDT) Erythrocyte sedimentation rate 9 1 - 20 mm/hr [facility] Blood 12/16/2020 11:0 4 AM CDT 12/16/2020 11:33 AM CDT us José Miguel Piedra MD LAB BLOOD ORDERABLES Final Resul t Performing Organization Address City/[facility] Co de Phone Number [facility] [address] * CRP (acute phase) (12/16/2020 11:04 AM CDT) CRP 7.9 <=10.0 mg/L [facility] Blood 12/16/2020 11:0 4 AM CDT 12/16/2020 11:38 AM CDT us José Miguel Piedra MD LAB BLOOD ORDERABLES Final Resul t Performing Organization Address [facility] [place] [address] * C4 complement (12/16/2020 11:04 AM CDT) Complement C4 26.6 10.0 - 40.0 mg/dL [facility] Blood 12/16/2020 11:0 4 AM CDT 12/16/2020 11:38 AM CDT us José Miguel Piedra MD LAB BLOOD ORDERABLES Final Resul t Performing Organization Address [facility] de Phone Number [facility] [place] [address] * C3 complement (12/16/2020 11:04 AM CDT) Complement C3 156.0 90.0 - 180.0 mg/dL [facility] Blood 12/16/2020 11:0 4 AM CDT 12/16/2020 11:38 AM CDT us José Miguel Piedra MD LAB BLOOD ORDERABLES Final Resul t Performing Organization Address [facility] Co de Phone Number [facility] [place] [address] documented in this encounter Visit Diagnoses Diagnosis [...] VRE 08/20/2020 08/20/2020 05/22/2021 12:5 8 AM BOOK CUTTER documented as of this encounter Care Teams Box Cutter Relationship Specialty Start Date End Date Stephan Donald MD [address] [place] [id number] PCP - General 12/16/17 documented as of this encounter
--- OUTSIDE RECORDS SUMMARY | 2024-03-22 23:49 | XMS_ITS | Encounter Summary ---
Author Organization [facility] [employer] [facility] Address [address] [place] [address] Care Team Providers Care Bulk Intake Worker Name Role Phone Annabelle Donald MD Primary Care Provider Encounter Details Date Type Department Care Team (Late st Contact Info) Description 08/15/2023 Abstract [facility] Oncology and Hematology - Mauricio [address] [facility] [address] [place] [address] Maco Calero MD [address] [facility] [address] [place] [address] Social History Tobacco Use Types [...] filedocumented in this encounter Care Teams Bulk Intake Worker Relationship Specialty Start Date End Date Annabelle Donald MD PCP - General Internal Medicine 07/30/23 documented as of this encounter
--- OUTSIDE RECORDS SUMMARY | 2024-03-22 23:49 | XMS_ITS | Encounter Summary ---
Author Organization [facility] Address [address] [place] [address] Phone Care Team Providers Care Director Business Development Name Role Phone Stephan Donald MD Primary Care Provide r Chong López MD Unavailable Annika Daniel RN Unavailable Unavailable Mora Li RN Unavailable [phone] Encounter Details Date Type Department Care Team (Late st Contact Info) Description 01/16/2022 Telephone [facility] Cardiology [address] [facility] Advanced Medicine 8th [place] [address] [place] [address] Chong López MD [address] [facility] [address] [place] [address] Social History Tobacco Use Types [...] on file Legal Sex Male 2:59 AM BREAKFAST MANAGER Gender Identity Not on file Sexual Orientation Not on file documented as of this encounter Miscellaneous Notes * Telephone Encounter - Balbina Javed - 01/18/2022 7:30 AM CDT Sent UTR letter * Telephone Encounter - Balbina Javed - 01/16/2022 12:21 PM CDT LMOR @ [phone] asking pt to c/b I sent the [...] on filedocumented in this encounter Care Teams Director Business Development Relationship Specialty Start Date End Date Stephan Donald MD [address] [address] PCP - General 12/16/17 Chong López MD [address] [address] Referring Physician Cardiology 01/01/22 María, Annika, switchboard installerMastic Sprayer Cardiology 01/01/22 04/24/23 Mora Li, RN [address] [address] Mastic Sprayer Cardiology 01/01/22 documented as of this encounter
--- OUTSIDE RECORDS SUMMARY | 2024-03-22 23:49 | XMS_ITS | Encounter Summary ---
Author Organization [facility] Address [address] [place] [address] Care Team Providers Care It Audit Manager Name Role Phone Stephan Donald MD Primary Care Provide r Encounter Details Date Type Department Care Team (Late st Contact Info) Description 12/20/2020 Telephone [facility] Transplant Heart [address] [facility] [phone] [place] [address] Mora Li, RN [address] [facility] [address] [place] [address] Social History Tobacco Use Types Packs/Day Years Used Date Smoking Tobacco: Former Cigarettes Q uit: 09/17/2016 Vaping Smokeless Tobacco: Former Alcohol Use Standard Drinks/Week Comments Defer 0 (1 standard drink = 0.6 oz pur e alcohol) Sex and Gender Information Value Date Recorded Sex Assigned at Not on file Legal Sex Male 2:59 AM DIESEL FITTER MECHANIC Gender Identity Not on file Sexual [...] VRE 08/20/2020 08/20/2020 05/22/2021 12:5 8 AM DIESEL FITTER MECHANIC documented as of this encounter Care Teams It Audit Manager Relationship Specialty Start Date End Date Stephan Donald MD [address] [place] [address] PCP - General 12/16/17 documented as of this encounter
--- OUTSIDE RECORDS SUMMARY | 2024-03-22 23:49 | XMS_ITS | Clinical Summary ---
Author Organization [facility] Facility Address [address] [facility] [address] [place] [address], [place] [address] Care Team Providers Care Cork Insulation Setter Name Role Phone Annabelle Donald MD Primary Care Provider [phone] Social History Tobacco Use Types Packs/Day Years [...] patient's age to complete this topic [place] [address] [place] [address] Care Teams Cork Insulation Setter Relationship Specialty Start Date End Date Annabelle Donald MD [address] [facility], [address] [place] [address] PCP - General Internal Medicine 07/18/23
--- OUTSIDE RECORDS SUMMARY | 2024-03-22 23:49 | XMS_ITS | Encounter Summary ---
Author Organization [facility] [employer] [facility] Address [address] [place] [address] Care Team Providers Care Carton Folder Name Role Phone Annabelle Donald MD Primary Care Provider Reason for Visit * Reason Onset Date Comments Lab Results 08/15/2023 Encounter Details Date Type Department Care Team (Late st Contact Info) Description 08/15/2023 Telephone [facility] Oncology and Hematology - Mauricio [address] [facility] [address] [place] [address] Nancy Sebastian FNP [address] [facility] [address] [place] [address] Lab Results Social History Tobacco [...] on filedocumented in this encounter Care Teams Carton Folder Relationship Specialty Start Date End Date Annabelle Donald MD PCP - General Internal Medicine 07/30/23 documented as of this encounter
--- OUTSIDE RECORDS SUMMARY | 2024-03-22 23:49 | XMS_ITS | Encounter Summary ---
Author Organization [facility] Address [address] [place] [address] Care Team Providers Care Strapping Machine Operator Name Role Phone Annabelle Donald [...] on filedocumented in this encounter Care Teams Strapping Machine Operator Relationship Specialty Start Date End Date Annabelle Donald MD PCP - General Internal Medicine 07/30/23 documented as of this encounter
--- OUTSIDE RECORDS SUMMARY | 2024-03-22 23:49 | XMS_ITS | Encounter Summary ---
Author Organization [employer] Address [address] [place] [address] Phone Care Team Providers Care Civil Preparedness Coordinator Name Role Phone Annabelle Donald MD Primary Care Provider [phone] Encounter Details Date Type Department Care Team (Late st Contact Info) Description 07/18/2023 Documentation Only [facility], [address] [address] Provider, MD [place] [address] [place] [address] Social History Tobacco Use Types Packs/Day Years [...] on filedocumented in this encounter Care Teams Civil Preparedness Coordinator Relationship Specialty Start Date End Date Annabelle Donald MD [address] [facility], [address] [place] [address] PCP - General Internal Medicine 07/18/23 documented as of this encounter
--- OUTSIDE RECORDS SUMMARY | 2024-03-22 23:49 | XMS_ITS | Encounter Summary ---
Author Organization [facility] [employer] [facility] Address [address] [place] [address] Care Team Providers Care International Marketing Intern Name Role Phone Annabelle Donald MD Primary Care Provider Reason for Visit * Reason Comments Establish Care Encounter Details Date Type Department Care Team (Latest Contact Info) Description 08/15/2023 1:30 PM CDT Office Visit [facility] Oncology and Hematology - Mauricio [address] [facility] 200 [place] [address] Nancy Sebastian FNP [address] [facility] 100 [place] [address] Secondary erythrocytosis (Primary Dx) Social [...] 08/15/2023 1:49 PM Hematology Oncology Nurse Practitioner [facility] ? Total time spent 60 minutes, two third of the total time spent counseling patient [id number]. This patient's plan of care has been [...] secondary documented in this encounter Care Teams International Marketing Intern Relationship Specialty Start Date End Date Annabelle Donald MD PCP - General Internal Medicine 07/30/23 documented as of this encounter
--- OUTSIDE RECORDS SUMMARY | 2024-03-22 23:49 | XMS_ITS | Encounter Summary ---
Author Organization [facility] Address [address] [place] [address] Phone Care Team Providers Care Asbestos Handler Name Role Phone Stephan Donald MD Primary Care Provide r Encounter Details Date Type Department Care Team (Late st Contact Info) Description 12/22/2020 Telephone [facility] Rheumatology [facility] Advanced Medicine 5th [place] [address] [place] [address] José Miguel Piedra MD [address] [place] [address] Social History Tobacco Use Types Packs/Day Years Used Date Smoking Tobacco: Former Cigarettes Q uit: 09/17/2016 Vaping Smokeless Tobacco: Former Alcohol Use Standard Drinks/Week Comments Defer 0 (1 standard drink = 0.6 oz pur e alcohol) Sex and Gender Information Value Date Recorded Sex Assigned at Not on file Legal Sex Male 2:59 AM DENTIST PRIVATE PRACTICE Gender Identity Not on file Sexual Orientation [...] 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
--- OUTSIDE RECORDS SUMMARY | 2024-03-22 23:49 | XMS_ITS | Encounter Summary ---
Author Organization [facility] Healthcare Address [address] [place] [address] Care Team Providers Care Photo Checker And Assembler Name Role Phone Stephan Donald MD Primary Care Provide r Encounter Details Date Type Department Care Team (Late st Contact Info) Description 11/10/2020 Telephone [facility] Transplant Heart [address] [facility] [address] [phone] [place] [address] Mora Li, RN [address] [facility] [address] [place] [address] Social History Tobacco Use Types Packs/Day Years Used Date Smoking Tobacco: Former Cigarettes Q uit: 09/17/2016 Smokeless Tobacco: Never Alcohol Use Standard Drinks/Week Comments Defer 0 (1 standard drink = 0.6 oz pur e alcohol) Sex and Gender Information Value Date Recorded Sex Assigned at Not on file Legal Sex Male 2:59 AM LUBE ATTENDANT Gender Identity Not on file Sexual Orientation [...] 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
--- OUTSIDE RECORDS SUMMARY | 2024-03-22 23:49 | XMS_ITS | Encounter Summary ---
Author Organization [facility] [employer] [facility] Address [address] [place] [address] Care Team Providers Care Coordinating Producer Name Role Phone Annabelle Donald MD Primary Care Provider Encounter Details Date Type Department Care Team (Late st Contact Info) Description 08/21/2023 Orders Only [facility] Oncology and Hematology - Mauricio [address] [facility] [address] [place] [address] Maco Calero MD [address] [facility] [address] [place] [address] Social History Tobacco Use Types [...] on filedocumented in this encounter Care Teams Coordinating Producer Relationship Specialty Start Date End Date Annabelle Donald MD PCP - General Internal Medicine 07/30/23 documented as of this encounter
--- OUTSIDE RECORDS SUMMARY | 2024-03-22 23:49 | XMS_ITS | Encounter Summary ---
Author Organization [facility] Address [address] [place] [address] Care Team Providers Care Inspector Materials And Processes Name Role Phone Annabelle Donald MD Primary [...] on filedocumented in this encounter Care Teams Inspector Materials And Processes Relationship Specialty Start Date End Date Annabelle Donald MD PCP - General Internal Medicine 07/30/23 documented as of this encounter
--- OUTSIDE RECORDS SUMMARY | 2024-03-22 23:49 | XMS_ITS | Encounter Summary ---
Author Organization [facility] Address [address] [place] [address] Care Team Providers Care Ironing Machine Operator Name Role Phone Annabelle Donald [...] on filedocumented in this encounter Care Teams Ironing Machine Operator Relationship Specialty Start Date End Date Annabelle Donald MD PCP - General Internal Medicine 07/30/23 documented as of this encounter
--- OUTSIDE RECORDS SUMMARY | 2024-03-22 23:49 | XMS_ITS | Encounter Summary ---
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) Discharge Disposition: Discharge to home or self care Social History Tobacco Use Types Packs/Day Years Used Date Smoking Tobacco: Former Cigarettes Q uit: 09/17/2016 Vaping Smokeless Tobacco: Former Alcohol Use Standard Drinks/Week Comments Defer 0 (1 standard drink = 0.6 oz pur e alcohol) Sex and Gender Information Value Date Recorded Sex Assigned at Not on file Legal Sex Male 2:59 AM DIRECTOR OF DIRECT MARKETING Gender Identity Not on file Sexual Orientation [...] WBC, ur 0-5 0 - 5 /HPF [facility] RBC, ur 0-2 0 - 2 /HPF [facility] Epithelial cells, squamous, ur 1-5 0 - 5 /HPF [facility] Mucous, ur Present(A) [facility] Urine 12/16/2020 11:0 4 AM CDT 12/16/2020 11:33 AM CDT José Miguel Piedra MD LAB URINE ORDERABLES Final Resul t [facility] Department [place] [address] * C3 complement (12/16/2020 11:04 AM CDT) Complement C3 156.0 90.0 - 180.0 mg/dL [facility] Blood 12/16/2020 11:0 4 AM CDT 12/16/2020 11:38 AM CDT José Miguel Piedra MD LAB BLOOD ORDERABLES Final Resul t Performing Organization Address City/[facility] Co de Phone Number [facility] Department [place] [address] * C4 complement (12/16/2020 11:04 AM CDT) Complement C4 26.6 10.0 - 40.0 mg/dL [facility] Blood 12/16/2020 11:0 4 AM CDT 12/16/2020 11:38 AM CDT us José Miguel Piedra MD LAB BLOOD ORDERABLES Final Resul t Performing Organization Address City/[facility] Co de Phone Number [facility] [place] [address] * CRP (acute phase) (12/16/2020 11:04 AM CDT) CRP 7.9 <=10.0 mg/L [facility] Blood 12/16/2020 11:0 4 AM CDT 12/16/2020 11:38 AM CDT us José Miguel Piedra MD LAB BLOOD ORDERABLES Final Resul t Performing Organization Address City/[facility] Co de Phone Number [facility] [place] [address] * Erythrocyte sedimentation rate (12/16/2020 11:04 AM CDT) Erythrocyte sedimentation rate 9 1 - 20 mm/hr [facility] Blood 12/16/2020 11:0 4 AM CDT 12/16/2020 11:33 AM CDT José Miguel Piedra MD LAB BLOOD ORDERABLES Final Resul t Performing Organization Address [facility] de Phone Number [facility] Department [place] [address] * (ABNORMAL) Urinalysis reflex to microscopic (12/16/2020 11:04 AM CDT) Color, ur Marci Yellow [facility] Clarity, ur Clear Clear [facility] Specific gravity, ur 1.027(H) 1.010 - 1.025 [facility] pH, urine 5 [facility] Protein, ur ql 1+(A) Negative [facility] Glucose, ur ql Negative Negative [facility] Ketones, ur Negative Negative [facility] Bilirubin, ur Negative Negative [facility] Blood, ur Negative Negative [facility] Urobilinogen, ur 4.0(A) <2.0 mg/dL [facility] Nitrite, ur Negative Negative [facility] Leukocyte esterase, ur Negative Negative [facility] UA reflex comment Reflex to microscopic UA will be performed. [facility] Urine 12/16/2020 11:0 4 AM CDT 12/16/2020 11:33 AM CDT Narrative [facility] - 12/16/2020 11:45 AM CDT ?? Urine pH is affected by diet, medications, systemic acid-base disturbances, and renal tubular function. ??pH may affect urinary stone formation. ??For example, urine pH below 6.0 may help reduce the tendency for calcium phosphate stones and pH greater than 6.0 may reduce the tendency for uric acid stone formation. Source: [facility]. Last revised 04-04-2017 us José Miguel Piedra MD LAB URINE ORDERABLES Final Resul t Performing Organization Address [facility] de Phone Number [facility] Department [place] [address] * Protein / creatinine ratio, urine, random (12/16/2020 11:04 AM CDT) Protein, ur, quant 24.2 mg/dL [facility] Comment: Interpretive Data No reference range established. Current interpretive data was last revised 2018. Creatinine Ur 308.1 mg/dL [facility] Comment: Interpretive Data No reference range established. Current interpretive data was last revised 2018. Protein/creatinin e ratio 78.5 0.0 - 180.0 mg/g CR [facility] Urine 12/16/2020 11:0 4 AM CDT 12/16/2020 11:33 AM CDT José Miguel Piedra MD LAB URINE ORDERABLES Final Resul t Performing Organization Address City/[facility] Co de Phone Number [facility] Department [place] [address] * Protein Electrophoresis, With Reflex, Serum (12/16/2020 11:04 AM CDT) Pathologist [facility] Protein, sr 6.9 6.2 - 8.2 g/dL [facility] Albumin 4.1 3.2 - 5.0 g/dL [facility] Alpha-1 globulin 0.3 0.2 - 0.4 g/dL [facility] Alpha-2 globulin 0.7 0.5 - 1.0 g/dL [facility] Beta-1 globulin 0.4 0.3 - 0.6 g/dL [facility] Beta-2 globulin 0.5 0.2 - 0.6 g/dL [facility] Gamma globulin 0.9 0.5 - 1.7 g/dL [facility] SPEP interp Please see comment [facility] Comment:No apparent monoclon al peak Blood 12/16/2020 11:0 4 AM CDT 12/16/2020 11:33 AM CDT us José Miguel Piedra MD LAB BLOOD ORDERABLES Final Resul t Performing Organization Address City/[facility]/ZIP Co de Phone Number [facility] Department [place] [address] documented in this encounter Visit Diagnoses Diagnosis 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
--- OUTSIDE RECORDS SUMMARY | 2024-03-22 23:49 | XMS_ITS | Continuity of Care Document ---
Author Organization [facility] Address [address] [place] [address] Phone Care Team Providers Care Fisheries Management Biologist Name Role Phone Esparza OD, Chuck Unavailable Unavailable Procedures Procedure Date Eye Exam & Treatment Refraction Eye Exam & Treatment Refraction Advance Directives Directive Yes / No Effective Date File Name No Information Encounters Encounter Description Practice Location Reason(s) For Visit Diagnoses Date Provider Providers Copied on Encounter [facility], [address], [place], [place], [id number], [place] tel:[phone] [facility] [place] No Information [phone] Esparza OD Chuck. [address] [place] , [address], [place], [address], [place]. tel:[phone] Family History Family Member Type Diagnosis Age At Onset No Information Payers Payer name Insurance type Covered republican ID Authoriza tion(s) No Information Social History [...]
--- OUTSIDE RECORDS SUMMARY | 2024-03-22 23:49 | XMS_ITS | Encounter Summary ---
Author Organization [facility] Healthcare Address [address] [place] [address] Care Team Providers Care Technical Programs Manager Name Role Phone Stephan Donald MD Primary Care Provide r Encounter Details Date Type Department Care Team (Latest Contact Info) Description 05/24/2021 1:20 PM SUPERVIS[employer] - 05/24/2021 11:59 PM [employer]PER[employer]OR [employer] Hospital Encounter [facility] [address] [place] [address] Discharge Disposition: Discharge to home or self [...] on file Legal Sex Male 2:59 AM SUPERVISOR [employer] Gender Identity Not on file Sexual Orientation [...] Comments EVENT MONITOR Routine 05/24/2021 2:01 PM SUPER[employer] documented in this encounter Results * Event Monitor, 30 Day Event (05/24/2021 2:01 PM SUPERVIS[employer]) Anatomical Region Laterality Modality Electrocardiogra phy 05/24/2021 1:25 PM [employer] Narrative 06/26/2021 1:59 PM CDT Patient name: Humza Recio Date of test: 05/24/2021 Type of Test: Event Monitor (SHO) [facility] #: [id number] ?Location: [facility] : 1950 ??Age: 71 ??Sex: M Ref Physician(s): MAYNOR MENSAH MD Interpreted by: Grupo Maldonado MD [email or web address] Tech: Wanda Cleaning Diagnosis: Monitoring Service: [employer] Reason for Test: R00.2: Palpitations Monitor Used: Body [facility] (MCT) ??[id number] Enrollment Period: May 24 - Jun 22, 2021 [employer] comments: Patient Instructions: Understood directions and use [...] The full scanned/data report is available in [employer]. labeled MONITOR STRIPS PDF . This study [...] test: 05/24/2021 Type of Test: Event Monitor ([facility] [facility] #: [id number] Location: [facility] : 1950 Age: 71 Sex: M Ref Physician(s): MAYNOR MENSAH MD Interpreted by: Grupo Maldonado MD [employer] Tech: Wanda Cleaning Diagnosis: Monitoring Service: [employer] Reason for Test: R00.2: Palpitations Monitor Used: Body [facility] Heart (MCT) [id number] Enrollment Period: May 24 - Jun 22, [...] The full scanned/data report is available in [facility]. labeled MONITOR STRIPS PDF . This study [...] Maynor Mensah NP [facility] Final Result documented in this encounter Visit Diagnoses Not on filedocumented in this encounter Care Teams Technical Programs Manager Relationship Specialty Start Date End Date Stephan Donald MD [address] [address] PCP - General 12/16/17 documented as of this encounter
--- OUTSIDE RECORDS SUMMARY | 2024-03-22 23:49 | XMS_ITS | Encounter Summary ---
Author Organization [facility] Healthcare Address [address] [place] [address] Care Team Providers Care Rubber Splicer Name Role Phone Stephan Donald MD Primary Care Provide r Reason for Referral * (Routine) - Closed Specialty Diagnoses / Procedures Referred By Contac t Referred To Contact Diagnoses TIA (transient ischemic attack) Procedures Miscellaneous DME Miscellaneous DME Maynor Santos NP [address] [place] [address] Phone: tel: fax: Referral ID Status Reason Start Date Expiration Date Visits Re quested Visits Authorized [id number] Closed 05/22/2021 06/21/2022 1 1 [employer]IES VA[employer] Reason for Visit * Reason Comments Unable to speak Encounter Details Date Type Department Care Team (Late st Contact Info) Description 05/21/2021 7:40 PM SUPERVISOR [employer]UR[employer]IES [employer] - 05/24/2021 2:58 PM [employer] Hospital Encounter [facility] [address] [place] [address] Sukhdev Chaudhary MD [address] [place] [address] Elsa Rowell MD [address] [place] [id number] Erna Schilling MD [address] [place] [address] TIA (transient ischemic attack) (Primary Dx); Dysarthria [...] file Legal Sex Male 2:59 AM SUPERVISOR SECURITIES VAULT Gender Identity Not on file Sexual Orientation Not on file documented as of this encounter Last Filed Vital Signs Vital Sign Reading Time Taken Comments Blood Pressure 138/99 05/24/2021 11:15 AM SU[employer]IES VA[employer] Pulse 74 05/24/2021 11:15 AM SU[employer]OR [employer]IES VA[employer] Temperature 36.5 ??C (97.7 ??F) 05/24/2021 11:[address] Respiratory Rate 18 05/24/2021 11:15 AM SU[employer] SEC[employer]IES VAULT Oxygen Saturation 94% 05/24/2021 11:15 AM SU[employer]OR SEC[employer]ITIES VAULT Inhaled Oxygen Concentration - - Weight 102.1 kg (225 lb) 05/21/2021 7:44 PM [employer]IES VA[employer] Height 177.8 cm (5' 10 ) 05/21/2021 7:44 PM SU[employer]IES VA[employer] Body Mass Index 32.28 05/21/2021 7:44 PM SUPERVISOR SECURITIES VAULT documented in this encounter Discharge Diagnoses Diagnosis [...] NIHSS SCORE 1 Atherosclerotic heart disease of [place] coronary artery without angina pectoris - ATHEROSCLEROTIC HEART DISEASE OF [place] CORONARY ARTERY WITHOUT ANGINA PECTORIS Hyperlipidemia, unspecified - HYPERLIPIDEMIA, UNSPECIFIED Personal history of nicotine dependence - PERSONAL HISTORY OF NICOTINE DEPENDENCE documented in this encounter Discharge Summaries * Rohini Isaac MD - 05/24/2021 12:07 PM CST Inpatient Discharge Summary BRIEF OVERVIEW Admitting Provider: Erna Schilling MD Discharge Provider: Erna Schilling MD Primary Care Physician at Discharge: Annabelle Donald MD [phone] Admission Date: 05/21/2021 Discharge Date: 05/24/2021 Admission Location: [facility] Problems/Diagnoses: Principal Problem: TIA (transient ischemic attack) Resolved Problems: No resolved hospital problems. DETAILS OF HOSPITAL STAY Presenting Problem/History of Present Illness: History obtained via patient (reliable) and chart review. At his baseline, Mr. Recio is independent in ADLs/IADLs, ambulates without assistance, and has no baseline neurologic deficits. ?? Upon arrival to the [facility] ED, blood pressure 176/101, blood [...] daughter that gradually improved upon arrival to [facility] ED. Last known at baseline [...] mg PO qHS (SPARCL trial). The current [place] Stroke Associationguidelines recommend long-term treatment with a high-intensity statin even in patient's with LDL level <100, if tolerated. (The SPARCL trial, Romana et al. 2010, showed that statin treatment shouldnot be titrated to LDL level.) SMART Consult was performed and PT/OT recommended discharge to home with home health. The patient will follow up in the [facility] clinic with his Neurologist. Risk factors were [...] Follow-up: Follow up with o/p neurologist at [facility] Neurology Test Results Pending at Discharge: None [...] up with your outpatient neurologist (Julio Aaron, SAND SLINGER OPERATOR-GONZALO) at [facility]. Other Instructions Ambulatory referral to Home Health Service Line: Home Health Primary disciplines requested: Long Term Physical Therapy Secondary disciplines requested: Occupational Therapy [...] risk Miscellaneous DME Name/type: Wheeled Walker The rnjv-cl-tapv evaluation was performed on: 05/22/2021 DME services provided by: [facility] Home Health: [facility] Contact Number: [phone] Services: Physical therapy, Occupational therapy [facility] will be contacting you to set up a start of care date. If you have any questions or the [facility] has not contacted you, please contact the home health company directly. The contact number is listed above. Thank you! [facility] will provide you with a wheeled walker. [...] 5C WU Rheum Contact Information for Follow-ups [facility] Home Care Services Specialty: Home Health and Hospice Pending sale to [facility] [address] Next Steps: Follow up Questions: Service Line: Home Health Primary disciplines requested: Long Term Physical Therapy Secondary disciplines requested: Occupational Therapy [...] Internal Medicine Relationship: PCP - General [address] [address] Next Steps: Follow up Cosigned by Erna Schilling MD at 05/24/2021 7:19 PM SUPERVISOR [employer]URITIES VAULT [employer]IES [employer]ULT [employer] Associated attestation - Erna Schilling MD - 05/24/2021 7:19 PM SUPERVISOR SECURITIES VAULT I have seen and examined the patient [...] Russ Mccann MD - 05/24/2021 12:50 PM SUPER[employer]OR SEC[employer]ITIES VAULT You were seen in the hospital for [...] up with your outpatient neurologist (Julio Aaron, SAND SLINGER OPERATOR-CALIBRATION LABORATORY TECHNICIAN) at [facility]. Call Your Doctor If: CALL 911 IF [...] control high bloodpressure, diabetes, and high cholesterol. [employer] * Appointments* Jennifer Rehman RN - 05/22/2021 3:14 PM SUPERVISOR SECURITIES VAULT This is the first available appointment with your PCP. Please arrive 15 minutes early and bring your insurance card, medication list and discharge paperwork to your appointment. If you are unable to make your appointment or need to be seen sooner, please call office to reschedule. Thank you! [employer] * Discharge Instr - Other Orders* Jennifer Rehman RN - 05/22/2021 3:46 PM SUPERVISOR SECURITIES VAULT Home Health: [facility] Contact Number: [phone] Services: Physical therapy, Occupational therapy The [facility] will be contacting you to set up a start of care date. If you have any questions or the [facility] has not contacted you, please contact the [facility] directly. The contact number is listed above. Thank you! [facility] will provide you with a wheeled walker. [employer] VA[employer] documented in this encounter Medications at Time [...] [facility] Order Faxed to [phone] [facility] Used? Not Needed [...] with Annabelle Donald MD on 05/25 @ 6061. Patient will receive HH from [facility]. No additional needs noted at this time. Patient and/or family are agreeable to discharge plan. ADD: Today [employer] * Gypsy Perez, PT - 05/24/2021 10:37 [...] treatment team and contact the PT or REHAB SERVICES AIDE currently assigned to this patient. If a physical therapy clinician is not assigned to this patient, please call [phone]. 05/24/21 1037 PT Last Visit Session Type [...] home. PT discussed recommendation to use [facility] daytime caregiver upon initial discharge home, progress to less [...] with AAD, mod I 05/22/21 06/05/21 -- [employer]IES [employer] * Beni Burr MD - 05/24/2021 9:33 AM CST Neurology Stroke Daily Progress Note SUBJECTIVE Humza Recio is a 71 y.o. male with a past medical history significant for generalized epilepsy,HTN, HLD, CAD, COPD, small-vessel vasculitis (colon, skin), and chronic pain (DJD) who presented on05/21 with sudden onset dysarthria and word finding difficulty as witnessed by daughter that gradually improved upon arrival to [facility] ED. Last known at baseline [...] difficulty that gradually improved upon arrival to [facility] ED. Last known at baseline [...] 06/11) Atorvastatin 80 mg daily - SMART, PT/OT/NUT FEEDER consults - Telemetry - Gradually re-start home [...] Erna Schilling MD at 05/24/2021 3:17 PM SUPERVISOR SECURITIES VAULT RV[employer]ITIES VAULT [employer]IES VA[employer] Associated attestation - Erna Schilling MD - 05/24/2021 3:17 PM SUPERVISOR SECURITIES VAULT I have seen and examined the patient [...] treatment team and contact the PT or REHAB SERVICES AIDE currently assigned to this patient. If a physical therapy clinician is not assigned to this patient, please call [phone]. Multi-Disciplinary Problems (from Physical Therapy) Active Problems [...] with AAD, mod I 05/22/21 06/05/21 -- [employer]IES VA[employer] * Negar Weir MD - 05/23/2021 6:58 AM CST Images from the original note were not included. Neurology Stroke Daily Progress Note SUBJECTIVE Humza Recio is a 71 y.o. male with a past medical history significant for generalized epilepsy,HTN, HLD, CAD, COPD, small-vessel vasculitis (colon, skin), and chronic pain (DJD) who presented on05/21 with sudden onset dysarthria and word finding difficulty as witnessed by daughter that gradually improved upon arrival to [facility] ED. Last known at baseline [...] difficulty that gradually improved upon arrival to [facility] ED. Last known at baseline [...] daily, Atorvastatin 80 mg daily - SMART, PT/OT/NUT FEEDER consults - Telemetry - S/P permissive HTN [...] Erna Schilling MD at 05/23/2021 2:04 PM SUPERVISOR SECURITIES VAULT RV[employer]ITIES VAULT [employer]IES VA[employer] Associated attestation - Erna Schilling MD - 05/23/2021 2:04 PM SUPERVISOR SECURITIES VAULT I have seen and examined the patient on 05/23/21. I agree with the findings and plan of care as documented in the resident's/fellow's note.. * Vel Hameed - 05/22/2021 11:22 AM CST Spiritual Care [facility] 05.22.21 10405/22/21 1000 Time Spent Start Time 1035 Stop Time 1040 Time Calculation (min) 5 min Patient Spiritual Assessment Spirituality Assessed Focus of Care Clinical Encounter Type Visited With Patient Response Type Routine visit Routine Visit Introduction Reason for visit SMART (stroke team);Support Outcomes and Progress Demonstrating care and respect Achieved Interventions Interventions Offer emotional support;Offer spiritual/congregation support [employer]IES VA[employer] * Jennifer Rehman, LCOO - 05/22/2021 10:34 AM CST CM Initial [...] transportation) (05/22/211033) Health Insurance Coverage: Medicare & S[employer]en Prescription Coverage: Yes Pharmacy: [facility] Primary Care Provider: Annabelle Martins MD Prior to Admission: Primary Caregiver: Self Support System: Children Support system contact info (name, phone, availablity): Marci Cruz (Daughter) [phone] Home Care Services: No Durable Medical Equipment: [...] Collaboration with patient, MD, direct care nurse, Radiation Oncology Therapist, Nurse Coordinator and other members of the health care team to assure needed interventions completed. 2. Return patient to optimal level of self-care post discharge. 3. Information Assistant will follow for Discharge Planning - [...] with the aftercare plan. Jennifer Rehman RN [employer]IES VA[employer] * Ashlee Esteban, OT - 05/22/2021 9:15 [...] None Prior Function Prior Function Level of [place]: Independent with ADLs, Independent with ambulation, Needs [...] name and address after me: Regulo Meyers [address] [place] [address] Without looking at the clock, tell me [...] Occupational Therapy) Active Problems Not on file [employer]IES VA[employer] * Gypsy Perez, PT - 05/22/2021 8:03 [...] walking Prior Function Prior Function Level of [place]: Independent with ADLs, Independent functional transfers, Independent [...] Gait 1: increased lateral trunk sway, decreased betzaida, decreased step height/length Ambulation Comments 1: Pt [...] treatment team and contact the PT or REHAB SERVICES AIDE currently assigned to this patient. If a physical therapy clinician is not assigned to this patient, please call [phone]. [employer]IES VA[employer] * Elida Guerrero RN - 05/22/2021 2:32 AM [place] [address] from ED via wheelchair. Covering service notified. Patient presents with TIA. Orders reviewed & will continue to monitor. Patient and/or customer engagement representative oriented to environment, equipment, and informed of the following as found in admission booklet: patient rights & responsibilities, visitor policy, hand and respiratory hygiene practice. Other education includes: Fall Prevention and Skin Breakdown Prevention/Treatment. Patient and/or customer engagement representative Verbalizes understanding. [employer]IES VAULT documented in this encounter H&P Notes * Edith Ashley MD - 05/22/2021 2:45 AM CST Images from the original note were not included. STROKE ADMISSION HISTORY AND PHYSICAL Date: 05/22/21 CARE TEAM Patient: Humza Recio Primary Care Physician: Annabelle Donald MD Room: [place] [id number] Attending Physician: Erna Schilling MD Subjective SUBJECTIVE Humza Recio is a 71 y.o. male with a past medical history significant for generalized epilepsy,HTN, HLD, CAD, COPD, small-vessel vasculitis (colon, skin), and chronic pain (DJD) who presented on05/21 with sudden onset dysarthria and word finding difficulty as witnessed by daughter that gradually improved upon arrival to [facility] ED. Last known at baseline [...] baseline neurologic deficits. Upon arrival to the [facility] ED, blood pressure 176/101, blood [...] alcohol or drug use. 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 ?? Social History Socioeconomic History ??? [...] difficulty that gradually improved upon arrival to [facility] ED. Last known at baseline [...] daily, Atorvastatin 80 mg daily - SMART, PT/OT/NUT FEEDER consults - Telemetry - Allow permissive HTN [...] work-up Edith Ashley MD Stroke phone on-call: [phone] Cosigned by Erna Schilling MD at 05/22/2021 1:56 PM SUPER[employer]IES VAULT [employer]ITIES VAULT RV[employer]ITIES VAULT [employer]IES VAULT Associated attestation - Erna Schilling MD - 05/22/2021 1:56 PM SUPERVISOR SECURITIES VAULT I have seen and examined the patient [...] by daughter??that gradually improved upon arrival to [facility] ED.?? SMART a1c 5.8 LDL [...] every day and likes little sherrie snacks (academic director cupcakes). Pt appeared in the pre contemplation [...] Discharge plans, I/O, Labs, Plan of care [employer]ITIES VAULT * Kristel Orellana RN - 05/22/2021 3:06 PM CSTAssociated Order(s): CERTIFIED COURT/MEDICAL INTERPRETER CONSULT Smart Note for Stroke Patient presents from: home Arriving by: EMS To: ED Patient [place] an [place] [address] with a clinical stroke diagnosis of TIA [...] includes:heparinoid To contact the SMART nurse call [phone] Business cards left with education packet for additional questions Database consent information: verbal consent for stroke database given consent in person consent obtained from patient [employer]IES VA[employer] * Gerry Jara MD - 05/21/2021 10:15 [...] Coordination: Finger to nose is normal bilaterally. Ktox-beip-iuws normal bilaterally. Smooth coordinated movements without evidence [...] stroke neurology primary service under Dr. Schilling [id number] for TIA work-up 2. Please obtain CTA H&N if admitting to stroke neurology service. Thank you for this consult. Please do not hesitate to contact us with any questions or concerns. If you have any questions or need re-evaluation in the interim, please contact neurology consults senior resident at [phone] and specify that this consult was staffed with Consult Team A. Gerry Jara MD Neurology Resident, PGY-2 The above recommendations are preliminary until staffed with an Attending. All attempts are made for new consults to be staffed within 24hrs of placing the order in [facility] and final recommendations will follow shortly. Naturally, the plan is subject to change pending formal staffing. For urgent questions/updates please call [phone] (consult senior). Please note during the day there are three consult teams (Consult A, Consult B, and HASTE team), and you may be redirected the appropriate democrat. [employer]IES VA[employer] * Gerry Jara MD - 05/21/2021 10:01 [...] [facility] the [facility] witnessed dysarthria/word production difficulty at [...] given Reason for tPA delay (>30 mins lacj-em-pypyay, if applicable): N/A, patient did not receive [...] bilateral visual stimulus Assessment & Plan: Mr. Recio is a 71 y.o. year old male [...] assessment, please activate the tPA pager at [phone]. For a non-emergent consult to neurology, please call the consult cellphone at [phone]. Gerry Jara MD 05/21/2021, 10:02 PM Subjective [...] noted in the History of Presenting Illness??(HPI). [employer]ITIES VAULT documented in this encounter Nursing Notes * [...] in flowsheets. Plan of care discussed with patient/customer engagement representative, including as it relates to Principal Problem: TIA (transient ischemic attack) Patient progressing. Clinical goals for the shift are to remain free from falls and discharge planning. Education provided includes Discharge Planning and Fall Prevention. Patient and/or customer engagement representative Verbalizes understanding. Will continue to monitor. [employer] SECURITIES VAULT * Darlene Garcia RN - 05/24/2021 1:41 AM CST Patient off the floor to MRI at this time. 01:37. [employer] SECURITIES VAULT * Lisbeth Forrest RN - 05/22/2021 4:09 [...] in flowsheets. Plan of care discussed with patient/customer engagement representative, including as it relates to Principal Problem: TIA (transient ischemic attack) Patient progressing. Clinical goals for the shift are to remain free from falls. Education providedincludes Fall Prevention. Patient and/or customer engagement representative Verbalizes understanding. Will continue to monitor. RV[employer]OR SECURITIES VAULT documented in this encounter ED Notes * [...] daughter that gradually improved upon arrival to [facility] ED. Last known at baseline [...] ??? Primary hypertension 11/10/2020 ??? Atherosclerosis of [place] coronary artery without angina pectoris 11/10/2020 ??? [...] daughter who is on her way from [place]. (Marci [phone]) By: Sukhdev Tboar MD Time: 05/21 2223 Value: CT Head [...] Sukhdev Tobar MD at 05/26/2021 10:28 AM SUPERVISOR SECURITIES VAULT RVISOR SECURITIES VAULT RV[employer]ITIES VAULT Associated attestation - Sukhdev Chaudhary MD - 05/26/2021 10:28 AM SUPERVISOR SECURITIES VAULT I have seen and examined the patient [...] Answering orientation questions appropriately, GCS 15. MAEW. RV[employer]OR SECURITIES VAULT RV[employer]ITIES VAULT * Antony Loyola RN - 05/21/2021 7:40 PM CST Bed: [facility] Expected date: Expected time: Means of arrival: Comments: GC [id number] Antony Loyola, LOCO 05/21/211939 [employer]URITIES VAULT documented in this encounter Miscellaneous Notes * ED Procedure Note - Sukhdev Tobar MD - 05/24/2021 2:58 PM SUPERVISOR SECURITIES VAULT Associated Order(s): Critical Care Procedure Critical Care [...] Rehman RN - 05/24/2021 1:43 PM CST [address] [address] Date: May 22, 2021 ?? Ambulatory referral to Home Health ?? Patient: Humza Recio [address] [facility] [address] : 1950 SSN: [id number] Sex: M Insurance: Member ID: ? Referring Provider Information: ERNA SCHILLING ?? Referral Information: # Visits: 1 Referral Type: Home Health [42] Urgency: Routine Referral Reason: Specialty Services Required Start Date: May 22, 2021 End Date: To be determined by Insurer Diagnosis: TIA (transient ischemic attack) (G45.9) Refer to Dept: [facility] Home Care Services [address] [place], [address] ?? Service Line: Home Health Primary disciplines requested: Long Term Primary disciplines requested: Physical Therapy Secondary disciplines [...] gait/unsteady balance resulting in fall risk ? Computational Sciences Professor: Erna Schilling MD ? This document serves as a request of services and does not constitute Insurance authorization or approval of services.?? To determine eligibility, please contact the member???s Insurance carrier to verify and review coverage. ?? If you have medical questions regarding this request for services. Please contact [facility] [phone] between the hours of 8:00am - 4:30pm (Mon-Fri). ?? [employer]ISOR SECURITIES VAULT * Hospital Course - Rohini Isaac MD - 05/24/2021 4:00 AM CST Humza Recio is a 71 y.o. male with a past medical history significant for generalized epilepsy,HTN, HLD, CAD, COPD, small-vessel vasculitis (colon, skin), and chronic pain (DJD) who presented on05/21 with sudden onset dysarthria and word finding difficulty as witnessed by daughter that gradually improved upon arrival to [facility] ED. Last known at baseline [...] mg PO qHS (SPARCL trial). The current [place] Stroke Associationguidelines recommend long-term treatment with a high- intensity statin even in patient's with LDL level <100, if tolerated. (The SPARCL trial, Romana et al. 2010, showed that statin treatment shouldnot be titrated to LDL level.) SMART Consult was performed and PT/OT recommended discharge to home with home health. The patient will follow up in the [facility] clinic with his Neurologist. Risk factors were [...] to follow up with primary care physician. RVISOR SECURITIES VAULT RVISOR SECURITIES VAULT RVISOR SECURITIES VAULT RVISOR SECURITIES VAULT RVISOR SECURITIES VAULT RVISOR SECURITIES VAULT * ULI Sawyer - Jennifer Rehman RN [...] Home Mobility Equipment None -KG Level of [place] Independent with ADLs;Independent with ambulation;Needs assistance with [...] of AD at baseline -MW Level of [place] Independent with ADLs;Independent functional transfers;Independent with ambulation;Independent [...] WFL -MW RUE Overall Strength Other (Comment) wellness coordinator strength WNL -MW R Shoulder ABduction 5/5 -MW R Elbow Flexion 5/5 -MW R Wrist Flexion 5/5 -MW LUE Assessment WFL -MW LUE Overall Strength Other (Comment) wellness coordinator strength WNL -MW L Shoulder ABduction 5/5 [...] Service Line Home Health Primary disciplines requested: Long Term Primary disciplines requested: Physical Therapy Secondary disciplines [...] Question Answer Comment Name/type: Wheeled Walker The eozr-st-xmlr evaluation was performed on: 05/22/2021 DME services provided by: [facility] 05/22/21 0000 [employer]OR [employer]URITIES VA[employer] * Significant Event - Russ Mccann MD - 05/22/2021 1:33 PM SUPERVISOR SECURITIES VAULT Called to bedside, patient had developed HTN [...] likelihood that this represents an ischemic event. [employer] SEC[employer]ITIES VAULT * Plan of Care - Jasmeet Tello RRT - 05/22/2021 11:39 AM CST Patient's Anoro transitioned to bedside administration after demonstrating ability to perform independently. [employer]ITIES VAULT * ED Procedure Note - Sukhdev Tobar MD - 05/21/2021 7:50 PM SUPERVISOR SECURITIES VAULT Associated Order(s): ECG 12 lead Procedure ECG [...] the ED Sukhdev Tobar MD 05/21/21 1950 [employer]OR SECURITIES VAULT documented in this encounter Plan of Treatment Not on file documented as of this encounter Procedures Procedure Name Priority Date/Time Associated Diagnosis Comments [place] CRITICAL CARE ILL/INJURED PATIENT INIT 30-74 MIN Routine 05/24/2021 2:58 PM SUPERVISOR SECURITIES VAULT EVENT MONITOR Routine 05/24/2021 2:01 PM [employer] MRI BRAIN WO CONTRAST IP Routine 05/24/2021 2:18 AM [employer] EGFR Routine 05/23/2021 8:47 PM [employer] DIFFERENTIAL AUTO Routine 05/23/2021 8:4 7 PM [employer] CBC WITH AUTO DIFFERENTIAL Routine 05/23/2021 8:47 PM [employer] BASIC METABOLIC PANEL Routine 05/23/2021 8:47 PM [employer] TRANSTHORACIC ECHO (TTE) COMPLETE W DOPPLER/CF W CONTRAST W BUBBLE Pending Discharge 05/23/2021 9:58 AM [employer] EGFR Routine 05/22/2021 9:21 PM [employer] DIFFERENTIAL AUTO Routine 05/22/2021 9:2 1 PM [employer] CBC WITH AUTO DIFFERENTIAL Routine 05/22/2021 9:21 PM [employer] BASIC METABOLIC PANEL Routine 05/22/2021 9:21 PM [employer] EEG Routine 05/22/2021 3:43 [address] [employer] [address] STROKE PROTOCOL WO CONTRAST Critical/Life-Th reatening 05/22/2021 1:22 PM [employer] URINALYSIS AND REFLEX TO MICROSCOPIC AND CULTURE STAT 05/22/2021 3:10 AM [employer] HEMOGLOBIN A1C STAT 05/22/2021 3:10 AM [employer] VALPROIC ACID LEVEL, TOTAL STAT 05/22/2021 3:10 AM [employer] LIPID PANEL STAT 05/22/2021 3:10 AM [employer] DRUGS OF ABUSE SCREEN, URINE WITH REFLEX CONFIRMATION Routine 05/22/2021 3:06 AM [employer] CTA HEAD NECK W WO CONTRAST ED 05/22/2021 1:57 AM [employer] TROPONIN I HIGH-SENSITIVITY 2-HOUR Timed 05/21/2021 9:51 [address] [employer] [address] HEAD WO CONTRAST ED Urgent/IP Urgent 05/21/2021 8:31 PM [employer] XR CHEST 1 VIEW ED 05/21/2021 8:03 PM [employer] POCT GLUCOSE DEVICE Routine 05/21/2021 7 :55 PM [employer] INFLUENZA A/B, RSV, AND COVID-19 PCR Routine 05/21/2021 7:54 PM [employer] ECG 12-LEAD STAT 05/21/2021 7:50 PM [employer] TROPONIN I HIGH-SENSITIVITY SERIES (BASELINE, 2HR, 4HR, 6HR) STAT 05/21/2021 7:48 PM [employer] EGFR STAT 05/21/2021 7:48 PM [employer] DIFFERENTIAL AUTO STAT 05/21/2021 7:4 8 PM [employer] THYROID FUNCTION CASCADE STAT 05/21/2021 7:48 PM [employer] CBC WITH AUTO DIFFERENTIAL STAT 05/21/2021 7:48 PM [employer] APTT STAT 05/21/2021 7:48 PM [employer] PROTIME-INR STAT 05/21/2021 7:48 PM [employer] PHOSPHORUS Routine 05/21/2021 7:48 PM [employer] MAGNESIUM STAT 05/21/2021 7:48 PM [employer] VALPROIC ACID LEVEL, TOTAL STAT 05/21/2021 7:48 PM [employer] CARBAMAZEPINE LEVEL, TOTAL STAT 05/21/2021 7:48 PM [employer] COMPREHENSIVE METABOLIC PANEL STAT 05/21/2021 7:48 PM [employer] documented in this encounter Results * OH CRITICAL CARE ILL/INJURED PATIENT INIT 30-74 MIN (05/24/2021 2:58 PM [employer]) Narrative Sukhdev Tobar MD - 05/24/2021 2:58 PM [employer] Sukhdev Tobar MD ? 06/28/2021 ??3:35 PM [...] 30 Day Event (05/24/2021 2:01 PM [employer]) Anatomical Region Laterality Modality Electrocardiogra phy 05/24/2021 1:25 PM [employer] Narrative 06/26/2021 1:59 PM CDT Patient name: Humza Recio Date of test: 05/24/2021 Type of Test: Event Monitor ([facility]) [facility] #: [id number] ?Location: [facility] : 1950 ??Age: 71 ??Sex: M Ref Physician(s): MAYNOR SANTOS MD Interpreted by: Grupo Maldonado MD ANTs Software: [employer] Diagnosis: Monitoring Service: [employer] Reason for Test: R00.2: Palpitations Monitor Used: Body [facility] (MCT) ??[id number] Enrollment Period: May 24 - Jun 22, 2021 [employer] comments: Patient Instructions: Understood directions and use [...] The full scanned/data report is available in Visual IQ. labeled MONITOR STRIPS PDF . This study [...] 05/24/2021 Type of Test: Event Monitor (SHO) [facility] #: [id number] Location: [facility] : 1950 Age: 71 Sex: M Ref Physician(s): MAYNOR SANTOS MD Interpreted by: Grupo Maldonado MD ANTs Software: [employer] Diagnosis: Monitoring Service: [employer] Reason for Test: R00.2: Palpitations Monitor Used: Body Just around [facility] ([facility]) [id number] Enrollment Period: May 24 - Jun 22, 2021 [employer]Ts Software comments: Patient Instructions: Understood directions and use [...] The full scanned/data report is available in [employer]. labeled MONITOR STRIPS PDF . This study [...] MRI Brain WO Contrast (05/24/2021 2:18 AM [employer]) Anatomical Region Laterality Modality Head and Neck N/A Magnetic Resonan ce 05/24/2021 10:4 2 AM [employer] Impressions 05/24/2021 2:13 PM [employer] 1. No acute intracranial abnormality. Dictated by: Benji Garcia M.D. The radiology attending physician has personally reviewed this study, and had reviewed and/or edited this written report and agrees with it. Electronically signed by: Beth Ye M.D. Narrative 05/24/2021 2:13 PM [employer] EXAMINATION: Magnetic resonance imaging (MRI) of the [...] R esult * eGFR (05/23/2021 8:47 PM [employer]) Pathologist [facility] eGFR >90 90 - 130 mL/min/1. [address] [facility] Comment: Interpretive Data Reference Interval [...] last reviewed 2021. Blood 05/23/2021 8:47 PM [employer] 05/23/2021 9:21 PM [employer] us Erna Schilling MD LAB BLOOD ORDERABLES Final Result [facility] Department [place] [address] * Differential, auto (05/23/2021 8:47 PM [employer]) Pathologist [facility] Neutrophil abs 3.3 1.7 - 6.5 K/cumm [facility] Imm gran abs 0.0 0.0 - 0.1 K/cumm [facility] Lymphocyte abs 2.6 0.8 - 3.3 K/cumm [facility] Monocyte abs 0.5 0.2 - 0.8 K/cumm [facility] Eosinophil abs 0.2 0.0 - 0.5 K/cumm [facility] Basophil abs 0.1 0.0 - 0.1 K/cumm [facility] Neutrophil pct 49.3 % [facility] Comment: Interpretive Data Percent cell count reference ranges are not reported, since discordance with absolute values may lead to misinterpretation of CBC data. Current Interpretive Data was last revised on 2017. Imm gran pct 0.5 % [facility] Comment: Interpretive Data Percent cell count reference ranges are not reported, since discordance with absolute values may lead to misinterpretation of CBC data. Current Interpretive Data was last revised on 2017. Lymphocyte pct 39.0 % [facility] Comment: Interpretive Data Percent cell count reference ranges are not reported, since discordance with absolute values may lead to misinterpretation of CBC data. Current Interpretive Data was last revised on 2017. Monocyte pct 7.1 % [facility] Comment: Interpretive Data Percent cell count reference ranges are not reported, since discordance with absolute values may lead to misinterpretation of CBC data. Current Interpretive Data was last revised on 2017. Eosinophil pct 3.3 % [facility] Comment: Interpretive Data Percent cell count reference ranges are not reported, since discordance with absolute values may lead to misinterpretation of CBC data. Current Interpretive Data was last revised on 2017. Basophil pct 0.8 % [facility] Comment: Interpretive Data Percent cell count reference ranges are not reported, since discordance with absolute values may lead to misinterpretation of CBC data. Current Interpretive Data was last revised on 2017. Blood 05/23/2021 8:47 PM [employer] 05/23/2021 9:21 PM [employer] us Erna Schilling MD LAB BLOOD ORDERABLES Final Result [facility] Department [place] [address] * Basic metabolic panel (05/23/2021 8:47 PM [employer]) Sodium 143 135 - 145 mmol/L [facility] Potassium, pl 3.5 3.3 - 4.9 mmol/L [facility] Chloride 106 97 - 110 mmol/L [facility] CO2 30 22 - 32 mmol/L [facility] Anion gap 7 2 - 15 mmol/L [facility] BUN 16 8 - 25 mg/dL [facility] Creatinine 0.88 0.80 - 1.30 mg/dL [facility] Glucose 118 70 - 199 mg/dL [facility] Comment: Interpretive Data Fasting glucose >/= 126 [...] 2017. Calcium 8.7 8.5 - 10.3 mg/dL [facility] Blood 05/23/2021 8:47 PM [employer] 05/23/2021 9:21 PM [employer] us Erna Schilling MD LAB BLOOD ORDERABLES Final Result [facility] Department [place] [address] * CBC with auto differential (05/23/2021 8:47 PM [employer]) WBC 6.6 3.8 - 9.9 K/cumm [facility] Hgb 13.6 13.0 - 17.5 g/dL [facility] Hct 39.3 38.9 - 50.3 % [facility] Plt 195 150 - 400 K/cumm [facility] MPV 10.5 9.1 - 12.3 fL [facility] RBC 4.45 4.30 - 5.80 M/cumm [facility] MCV 88.3 81.3 - 96.4 fL [facility] MCH 30.6 27.1 - 33.3 pg [facility] MCHC 34.6 32.3 - 35.7 g/dL [facility] RDW CV 11.9 11.1 - 14.9 % [facility] RDW SD 37.9 35.7 - 48.1 fL [facility] NRBC abs 0.00 0.00 - 0.01 K/cumm [facility] Blood 05/23/2021 8:47 PM [employer] 05/23/2021 9:21 PM [employer] us Erna Schilling MD LAB BLOOD ORDERABLES Final Result [facility] Department [place] [address] * TRANSTHORACIC ECHO (TTE) COMPLETE W DOPPLER/CF W CONTRAST W BUBBLE (05/23/2021 9:58 AM [employer]) Anatomical Region Laterality Modality Ultrasound 05/23/2021 8:05 AM [employer] Narrative 05/23/2021 10:29 AM [employer] Patient name: Humza Recio Date of test: 05/23/2021 Type of test: TTE w/Doppler [facility] #: [id number] Date of : 1950 (M) Freight Clerk: Mayur Acevedo RDCS Referring Physician: ERNA SCHILLING MD Contrast Agent: 1.5 ml. Optison Admin., (1.5 ml Wasted) and NS Bubble Study Contrast Administered by: Elizabeth Villafuerte RN Supervised/Interpreted by: Walter Grande MD Diagnosis: Location: [facility] Reason for test: eval for KRISTIE, PFO, [...] 2=Hypo 3=Akinetic 4=Dyskin./Aneurysm 0=Not visualized) Parasternal [place]:MAS=1 BAS=1 MIL=1 CARLO=1 Parasternal [place]:MAS=1 MIS=1 MD=1 MIL=1 MAL=1 MA=1 Apical 4 Chambers:=1 MIS=1 BIS=1 BAL=1 MAL=1 AL=1 AC=1 Apical 2 Chambers:AI=1 MD=1 BI=1 BA=1 MA=1 AA=1 AC=1 LV Global [...] MD By signing this report, the attending compliance officer certifies that he or she has personally supervised and interpreted the echocardiogram and has reviewed and or edited and agrees with the written comments contained within the report. Procedure Note Walter Grande MD - 05/23/2021 Patient name: Humza Recio Date of test: 05/23/2021 Type of test: [facility] #: [id number] Date of : 1950 (M) Freight Clerk: Mayur Acevedo RDCS Referring Physician: ERNA SCHILLING MD Contrast Agent: 1.5 ml. Optison Admin., (1.5 ml Wasted) and NS Bubble Study Contrast Administered by: Elizabeth Villafuerte RN Supervised/Interpreted by: Walter Grande MD Diagnosis: Location: [facility] Reason for test: eval for KRISTIE, PFO, [...] 2=Hypo 3=Akinetic 4=Dyskin./Aneurysm 0=Not visualized) Parasternal [place]:MAS=1 BAS=1 MIL=1 CARLO=1 Parasternal [place]:MAS=1 MIS=1 MD=1 MIL=1 MAL=1 MA=1 Apical 4 Chambers:=1 MIS=1 BIS=1 BAL=1 MAL=1 AL=1 AC=1 Apical 2 Chambers:AI=1 MD=1 BI=1 BA=1 MA=1 AA=1 AC=1 LV Global [...] MD By signing this report, the attending compliance officer certifies that he or she has personally supervised and interpreted the echocardiogram and has reviewed and or edited and agrees with the written comments contained within the report. us Erna Schilling MD CV ECHO PROCEDURES Final R esult * eGFR (05/22/2021 9:21 PM [employer]) eGFR >90 90 - 130 mL/min/1. 73 m2 [facility] Comment: Interpretive Data Reference Interval [...] last reviewed 2021. Blood 05/22/2021 9:21 PM [employer] 05/22/2021 9:48 PM [employer] us Erna Schilling MD LAB BLOOD ORDERABLES Final Result [facility] Department [place] [address] * Differential, auto (05/22/2021 9:21 PM [employer]) Neutrophil abs 3.2 1.7 - 6.5 K/cumm [facility] Imm gran abs 0.0 0.0 - 0.1 K/cumm [facility] Lymphocyte abs 2.5 0.8 - 3.3 K/cumm [facility] Monocyte abs 0.5 0.2 - 0.8 K/cumm [facility] Eosinophil abs 0.2 0.0 - 0.5 K/cumm [facility] Basophil abs 0.0 0.0 - 0.1 K/cumm [facility] Neutrophil pct 49.6 % [facility] Comment: Interpretive Data Percent cell count reference ranges are not reported, since discordance with absolute values may lead to misinterpretation of CBC data. Current Interpretive Data was last revised on 2017. Imm gran pct 0.3 % [facility] Comment: Interpretive Data Percent cell count reference ranges are not reported, since discordance with absolute values may lead to misinterpretation of CBC data. Current Interpretive Data was last revised on 2017. Lymphocyte pct 38.6 % [facility] Comment: Interpretive Data Percent cell count reference ranges are not reported, since discordance with absolute values may lead to misinterpretation of CBC data. Current Interpretive Data was last revised on 2017. Monocyte pct 7.1 % [facility] Comment: Interpretive Data Percent cell count reference ranges are not reported, since discordance with absolute values may lead to misinterpretation of CBC data. Current Interpretive Data was last revised on 2017. Eosinophil pct 3.8 % [facility] Comment: Interpretive Data Percent cell count reference ranges are not reported, since discordance with absolute values may lead to misinterpretation of CBC data. Current Interpretive Data was last revised on 2017. Basophil pct 0.6 % [facility] Comment: Interpretive Data Percent cell count reference ranges are not reported, since discordance with absolute values may lead to misinterpretation of CBC data. Current Interpretive Data was last revised on 2017. Blood 05/22/2021 9:21 PM [employer] 05/22/2021 9:48 PM [employer] us Erna Schilling MD LAB BLOOD ORDERABLES Final Result [facility] Department [place] [address] * Basic metabolic panel (05/22/2021 9:21 PM [employer]) Pathologist [facility] Sodium 144 135 - 145 mmol/L [facility] Potassium, pl 3.5 3.3 - 4.9 mmol/L [facility] Chloride 107 97 - 110 mmol/L [facility] CO2 29 22 - 32 mmol/L [facility] Anion gap 8 2 - 15 mmol/L [facility] BUN 15 8 - 25 mg/dL [facility] Creatinine 0.84 0.80 - 1.30 mg/dL [facility] Glucose 139 70 - 199 mg/dL [facility] Comment: Interpretive Data Fasting glucose >/= 126 [...] 2017. Calcium 8.6 8.5 - 10.3 mg/dL [facility] Blood 05/22/2021 9:21 PM [employer] 05/22/2021 9:48 PM [employer] us Erna Schilling MD LAB BLOOD ORDERABLES Final Result [facility] Department [place] [address] * (ABNORMAL) CBC with auto differential (05/22/2021 9:21 PM [employer]) Pathologist [facility] WBC 6.4 3.8 - 9.9 K/cumm [facility] Hgb 13.5 13.0 - 17.5 g/dL [facility] Hct 38.8(L) 38.9 - 50.3 % [facility] Plt 194 150 - 400 K/cumm [facility] MPV 10.6 9.1 - 12.3 fL [facility] RBC 4.45 4.30 - 5.80 M/cumm [facility] MCV 87.2 81.3 - 96.4 fL [facility] MCH 30.3 27.1 - 33.3 pg [facility] MCHC 34.8 32.3 - 35.7 g/dL [facility] RDW CV 11.8 11.1 - 14.9 % [facility] RDW SD 37.8 35.7 - 48.1 fL [facility] NRBC abs 0.00 0.00 - 0.01 K/cumm [facility] Blood 05/22/2021 9:21 PM [employer] 05/22/2021 9:48 PM [employer] us Erna Schilling MD LAB BLOOD ORDERABLES Final Result Performing Organization Address City/State/[facility] Co de Phone Number [facility] Department [place] [address] * EEG (05/22/2021 3:43 PM [employer]) Anatomical Region Laterality Modality EEG Narrative 05/22/2021 6:32 PM [employer] Routine EEG Report Patient Name: Humza Recio [facility] Medical Record Number (MRN): [id number] Annemarie Arredondo Record: [id number] Date of (): 1950 EEG Date: 05/22/2021 [...] 32 channel EEG recording acquired on a [employer] EEG-1200 acquisition system. Scalp electrodes were placed [...] Stroke Head WO Contrast (05/22/2021 1:22 PM [employer]) Anatomical Region Laterality Modality Head N/A Computed Tomogra phy 05/22/2021 1:45 PM [employer] Impressions 05/22/2021 1:48 PM [employer] No CT evidence of acute large territory infarct or acute intracranial hemorrhage. Dictated by: Giovani Gates MD The radiology attending physician has personally reviewed this study, and had reviewed and/or edited this written report and agrees with it. Electronically signed by: Tong Field M.D. Narrative 05/22/2021 1:48 PM [employer] EXAMINATION: Computed tomography (CT) of the head [...] Tong Field M.D. us Erna Schilling MD [facility] [place] PROCEDURES Final Re sult * (ABNORMAL) Lipid panel (05/22/2021 3:10 AM [employer]) Pathologist [facility] Cholesterol 162 30 - 199 mg/dL [facility] Comment: Interpretive Data Ages < [...] revised on 2017. Triglycerides 311(H) <=149 mg/dL [facility] Comment: Interpretive Data Ages < or = [...] on 2017. HDL 36(L) >=40 mg/dL [facility] Comment: Interpretive Data Ages < [...] 2017. LDL, calculated 64 <=129 mg/dL [facility] Comment: Interpretive Data Ages < [...] on 2017. Non-HDL Cholesterol 126 mg/dL [facility] Comment: Interpretive Data Ages < [...] 5 [facility] Blood 05/22/2021 3:10 AM [employer] 05/22/2021 4:55 AM [employer] us Erna Schilling MD LAB BLOOD ORDERABLES Final Result [facility] Department [place] [address] * (ABNORMAL) Urinalysis reflex to microscopic and culture Urine, clean voided (05/22/2021 3:10 AM [employer]) Color, ur Yellow Yellow [facility] Clarity, ur Clear Clear [facility] Specific gravity, ur >1.042(H) 1.003 - 1.030 [facility] pH, urine 6.5 [facility] Protein, ur ql Trace Negative [facility] Glucose, ur ql Negative Negative [facility] Ketones, ur Negative Negative [facility] Bilirubin, ur Negative Negative [facility] Blood, ur Negative Negative [facility] Urobilinogen, ur 2.0(A) <2.0 mg/dL [facility] Nitrite, ur Negative Negative [facility] Leukocyte esterase, ur Negative Negative [facility] UA reflex comment Reflex conditions for microscopic UA and culture not met. [facility] Urine, clean voided 05/22/2021 3:10 AM [employer] 05/22/2021 5:26 AM [employer] Narrative [facility] - 05/22/2021 6:02 AM [employer] ?? Urine pH is affected by diet, medications, systemic acid-base disturbances, and renal tubular function. ??pH may affect urinary stone formation. ??For example, urine pH below 6.0 may help reduce the tendency for calcium phosphate stones and pH greater than 6.0 may reduce the tendency for uric acid stone formation. Source: [facility] [employer]. Last revised 04-04-2017 us Erna Schilling MD LAB MICROBIOLOGY - GENERAL ORDERABLES Final Result [facility] Department [place] [address] * (ABNORMAL) Hemoglobin A1c (05/22/2021 3:10 AM [employer]) Hgb A1C 5.8(H) 4.0 - 5.6 % [facility] Estimated Average Glucose 120 mg/dL [facility] Comment: The ADA recommends reporting an estimated Average Glucose (eAG) with all Hemoglobin A1c results using the equation derived from a study of 507 normal and diabetic adults. ??Minority populations were underrepresented and children were not included. ?? (Diabetes Care 2020; 43(S1): S66-S76). ??The eAG is not equivalent to a fasting glucose. Blood 05/22/2021 3:10 AM [employer] 05/22/2021 4:52 AM [employer] us Erna Schilling MD LAB BLOOD ORDERABLES Final Result Performing Organization Address [facility] de Phone Number [facility] Department [place] [address] * (ABNORMAL) Valproic acid level, total (05/22/2021 3:10 AM [employer]) Valproic Acid 16.0(L) 50.0 - 100.0 mcg/mL [facility] Comment: Interpretive Data Therapeutic or toxic effects of anticonvulsant drugs may occur at different concentrations in different patients and the correlation between dose and clinical effect must be evaluated individually. Current interpretative data was last revised on 13. Blood 05/22/2021 3:10 AM [employer] 05/22/2021 4:55 AM [employer] us Sukhdev Chaudhary MD LAB BLOOD ORDERABLES Final R esult Performing Organization Address [facility] de Phone Number [facility] Department [place] [address] * Drugs of Abuse Screen, Urine with Reflex Confirmation (05/22/2021 3:06 AM [employer]) Amphetamine, ur Not Detected CutOff 500ng/mL [facility] Comment: Interpretive Data - Amphetamines: [...] Benzodiazepines, ur Not Detected CutOff 100ng/mL [facility] Comment: Interpretive Data - Benzodiazepines: ??Samples containing greater than 100 ng/mL nordiazepam or other cross-reacting compounds are reported as positive. ?? False positive and false negative results are possible. ?? Current Interpretive Data was last reviewed 2018. Cannabinoids, ur Not Detected CutOff 50 ng/mL [facility] Cocaine, ur Not Detected CutOff 150ng/mL [facility] Comment: Interpretive Data - Cocaine: ??Samples containing greater than 150 ng/mL benzoylecgonine or other cross-reacting compounds are reported as positive. False positive and false negative results are possible. Current Interpretive Data was last reviewed 2018. Fentanyl, Ur Not Detected Cutoff 1 ng/mL [facility] Comment: Interpretive Data - Fentanyls: ??Samples containing greater than 1 ng/mL fentanyl or other cross-reacting fentanyl compounds are reported as detected. ??False positive and false negative results are possible. Current Interpretive Data was last reviewed 2018. Methadone, ur Not Detected CutOff 300ng/mL [facility] Comment: Interpretive Data - Methadone: ??Samples containing greater than 300 ng/mL d,l-methadone or other cross-reacting compounds are reported as positive. ??False positive and false negative results are possible. Current Interpretive Data was last reviewed 2018. Opiates, ur Not Detected CutOff 300ng/mL [facility] Comment: Interpretive Data - Opiates: ??Samples containing greater than 300 ng/mL morphine or other cross-reacting compounds are reported as positive. ??False positive and false negative results are possible. Current Interpretive Data was last reviewed 2018. Oxycodone, ur Not Detected CutOff 100ng/mL [facility] Comment: Interpretive Data - Oxycodone: ??Samples containing greater than 100 ng/mL oxycodone or other cross-reacting compounds are reported as positive. ??False positive and false negative results are possible. ?? Current Interpretive Data was last reviewed 2018. Phencyclidine, ur Not Detected CutOff 25 ng/mL [facility] Comment: Interpretive Data - Phencyclidine: ??Samples containing greater than 25 ng/mL phencyclidine or other cross-reacting compounds are reported as positive. ??False positive and false negative results are possible. ?? Current Interpretive Data was last reviewed 2018. Urine Creatinine 184 mg/dL [facility] Comment: Interpretive Data Urine Creatinine: < 10 mg/dL is extremely dilute = or > 10 but < 20 mg/dL is dilute = or > 20 mg/dL is normal Current Interpretive Data was last revised on 2017. Urine 05/22/2021 3:06 AM [employer] 05/22/2021 5:27 AM [employer] Narrative [facility] - 05/22/2021 6:04 AM [employer] Drug of Abuse screening is performed by immunoassay for medical purposes only. ??This is not to be used for Pain Management purposes. ??If Detected, confirmation testing will be performed for Amphetamines, Cocaine, Fentanyl, Methadone, Opiates, Oxycodone or Phencyclidine. us Erna Schilling MD LAB URINE ORDERABLES Final Result [facility] Department [place] [address] * CTA Head Neck W WO Contrast (05/22/2021 1:57 AM [employer]) Anatomical Region Laterality Modality Head and Neck N/A Computed Tomogra phy 05/22/2021 2:29 AM [employer] Impressions 05/22/2021 8:22 AM [employer] 1. No CT evidence of large acute [...] Blank Powell M.D. Narrative 05/22/2021 8:22 AM [employer] EXAMINATION: Computed tomography angiography (CTA) of the [...] narrowing or filling defects are identified. The [id number] is complete. The anterior and middle cerebral [...] narrowing or filling defects are identified. The [id number] is complete. The anterior and middle cerebral [...] Troponin I high-sensitivity 2-hour (05/21/2021 9:51 PM [employer]) Trop I hs <4 <=35 ng/L [facility] Comment: Interpretive Data For further hscTnI resources including the diagnostic algorithm and an aid in interpretation, copy and paste this link: https://bjhlab.testcatalog.org/show/hsTrop-1 Current Interpretive Data last revised 2019. Trop I hs delta 0 ng/L [facility] Trop I hs interp Insignificant CERMIKE Dickens Blood 05/21/2021 9:51 PM [employer] 05/21/2021 10:17 PM [employer] Beatriz Treadwell MD LAB BLOOD ORDERABLES Final Result [facility] Department [place] [address] * CT Head WO Contrast (05/21/2021 8:31 PM [employer]) Anatomical Region Laterality Modality Head and Neck N/A Computed Tomogra phy 05/21/2021 9:48 PM [employer] Impressions 05/22/2021 7:47 AM [employer] No large acute territory infarct and no [...] Blank Powell M.D. Narrative 05/22/2021 7:47 AM [employer] EXAMINATION: CT head without contrast HISTORY: Dysarthria. [...] it. Electronically signed by: Blank Powell M.D. [facility] MD IMG CT PROCEDURES Final Re sult * XR Chest 1 Vw Portable (05/21/2021 8:03 PM [employer]) Anatomical Region Laterality Modality Body, Chest N/A Computed Radiogr aphy 05/21/2021 8:37 PM [employer] Impressions 05/21/2021 8:49 PM [employer] Mildly increased bibasilar atelectasis. ??No focal pulmonary [...] by: DO Thea Powers 05/21/2021 8:49 PM [employer] EXAMINATION: XR CHEST 1 VIEW HISTORY: Shortness [...] sult * POCT glucose (05/21/2021 7:55 PM [employer]) Pathologist [facility] Glucose, POC 106 70 - 199 mg/dL [facility] Blood 05/21/2021 7:55 PM [employer] 05/21/2021 7:55 PM [employer] us Notinfile Unknown LAB POCT ORDERABLES - DEVICE F inal Result [facility] Department [place] [address] * Influenza A/B, RSV, and COVID-19 PCR Nasopharyngeal (05/21/2021 7:54 PM [employer]) [facility] COVID-19 RNA Negative Negative [facility] Influenza A RNA Negative Negative [facility] Influenza B RNA Negative Negative [facility] RSV RNA Negative Negative [facility] Comment: Interpretive data: Testing performed by [facility] ([phone]). This test is performed using the Watchfinder Xpert Xpress CoV-2/Flu/RSV plus assay. This is a multiplex, real-time reverse transcriptase PCR assay intended for the qualitative detection of nucleic acid from SARS-CoV-2, influenza A, influenza B, and respiratory syncytial virus. This assay has been reviewed by the FDA for Emergency Use Authorization (EUA). The performance characteristics have been verified by the [facility]. Results must be considered in the clinical context, and a negative result does not rule out infection. Interpretive Data last revised 2021. First COVID-19 test? No [facility] Employeed in healthcare? Unknown [facility] Group care resident? Unknown [facility] Hospitalized? Unknown [facility] Is patient in ICU? Unknown [facility] Symptomatic as defined by CDC? Unknown [facility] Nasopharyngeal 05/21/2021 7: 54 PM [employer] 05/21/2021 8:04 PM [employer] Narrative [facility] - 05/21/2021 8:44 PM [employer] Reason for testing?->Bed placement or semi-private room Known exposure to confirmed or suspected COVID-19 case?->No Beatriz Treadwell MD LAB MICROBIOLOGY - GENERAL ORDERABLES Final Result [facility] Department [place] [address] * ECG 12-LEAD (05/21/2021 7:50 PM [employer]) Narrative [facility] - 05/21/2021 7:50 PM [employer] Sukhdev Tobar MD ? 05/21/2021 ??7:50 PM [...] ORDERABLES Final Resu lt Performing Organization Address [facility] Co de Phone Number [facility] * Carbamazepine level, total (05/21/2021 7:48 PM [employer]) Carbamazepine 8.1 3.0 - 12.0 mcg/mL [facility] Comment: Interpretive Data Therapeutic or Toxic effect of anticonvulsant drugs may occur at different concentrations in different patients and the correlation between dose and clinical effect must be evaluated individually. Current interpretive data was last revised on 13. Blood 05/21/2021 7:48 PM [employer] 05/21/2021 8:04 PM [employer] us Sukhdev Chaudhary MD LAB BLOOD ORDERABLES Final R esult Performing Organization Address [facility] Co de Phone Number [facility] Department [place] [address] * (ABNORMAL) Valproic acid level, total (05/21/2021 7:48 PM [employer]) Valproic Acid 29.0(L) 50.0 - 100.0 mcg/mL [facility] Comment: Interpretive Data Therapeutic or toxic effects of anticonvulsant drugs may occur at different concentrations in different patients and the correlation between dose and clinical effect must be evaluated individually. Current interpretative data was last revised on 13. Blood 05/21/2021 7:48 PM [employer] 05/21/2021 8:04 PM [employer] us Sukhdev Chaudhary MD LAB BLOOD ORDERABLES Final R esult Performing Organization Address City/[facility] Co de Phone Number [facility] Department [place] [address] * (ABNORMAL) eGFR (05/21/2021 7:48 PM [employer]) eGFR 83(L) 90 - 130 mL/min/1. 73 m2 [facility] Comment: Interpretive Data Reference Interval Normal ?>/= [...] last reviewed 2021. Blood 05/21/2021 7:48 PM [employer] 05/21/2021 8:04 PM [employer] us Beatriz Treadwell MD LAB BLOOD ORDERABLES Final Result Performing Organization Address City/[facility] Co de Phone Number [facility] Department [place] [address] * Magnesium (05/21/2021 7:48 PM [employer]) Magnesium 1.7 1.4 - 2.5 mg/dL [facility] Blood 05/21/2021 7:48 PM [employer] 05/21/2021 8:04 PM [employer] Sukhdev Chaudhary MD LAB BLOOD ORDERABLES Final R esult [facility] Department [place] [address] * Differential, auto (05/21/2021 7:48 PM [employer]) Pathologist [facility] Neutrophil abs 5.6 1.7 - 6.5 K/cumm [facility] Imm gran abs 0.0 0.0 - 0.1 K/cumm [facility] Lymphocyte abs 3.2 0.8 - 3.3 K/cumm [facility] Monocyte abs 0.6 0.2 - 0.8 K/cumm [facility] Eosinophil abs 0.2 0.0 - 0.5 K/cumm [facility] Basophil abs 0.1 0.0 - 0.1 K/cumm [facility] Neutrophil pct 57.6 % [facility] Comment: Interpretive Data Percent cell count reference ranges are not reported, since discordance with absolute values may lead to misinterpretation of CBC data. Current Interpretive Data was last revised on 2017. Imm gran pct 0.2 % [facility] Comment: Interpretive Data Percent cell count reference ranges are not reported, since discordance with absolute values may lead to misinterpretation of CBC data. Current Interpretive Data was last revised on 2017. Lymphocyte pct 32.9 % [facility] Comment: Interpretive Data Percent cell count reference ranges are not reported, since discordance with absolute values may lead to misinterpretation of CBC data. Current Interpretive Data was last revised on 2017. Monocyte pct 6.5 % [facility] Comment: Interpretive Data Percent cell count reference ranges are not reported, since discordance with absolute values may lead to misinterpretation of CBC data. Current Interpretive Data was last revised on 2017. Eosinophil pct 1.9 % [facility] Comment: Interpretive Data Percent cell count reference ranges are not reported, since discordance with absolute values may lead to misinterpretation of CBC data. Current Interpretive Data was last revised on 2017. Basophil pct 0.9 % [facility] Comment: Interpretive Data Percent cell count reference ranges are not reported, since discordance with absolute values may lead to misinterpretation of CBC data. Current Interpretive Data was last revised on 2017. Blood 05/21/2021 7:48 PM [employer] 05/21/2021 8:04 PM [employer] Beatriz Treadwell MD LAB BLOOD ORDERABLES Final Result Performing Organization Address City/[facility]/ZIP Co de Phone Number [facility] [place] [address] * Phosphorus (05/21/2021 7:48 PM [employer]) Pathologist [facility] Phosphorus, pl 2.6 2.3 - 4.5 mg/dL [facility] Blood 05/21/2021 7:48 PM [employer] 05/21/2021 8:04 PM [employer] Beatriz Treadwell MD LAB BLOOD ORDERABLES Final Result Performing Organization Address City/[facility]/ZIP Co de Phone Number [facility] Department [place] [address] * Comprehensive metabolic panel (05/21/2021 7:48 PM [employer]) Pathologist [facility] Sodium 145 135 - 145 mmol/L [facility] Potassium, pl 3.5 3.3 - 4.9 mmol/L [facility] Chloride 105 97 - 110 mmol/L [facility] CO2 27 22 - 32 mmol/L [facility] Anion gap 13 2 - 15 mmol/L [facility] BUN 12 8 - 25 mg/dL [facility] Creatinine 0.98 0.80 - 1.30 mg/dL [facility] Glucose 118 70 - 199 mg/dL [facility] Comment: Interpretive Data Fasting glucose >/= 126 [...] 2017. Calcium 9.9 8.5 - 10.3 mg/dL [facility] Bilirubin, total 0.3 0.1 - 1.2 mg/dL [facility] Protein, pl 7.7 6.5 - 8.5 g/dL [facility] Albumin 4.5 3.5 - 5.0 g/dL [facility] Alk phos 115 40 - 130 Units/L [facility] ALT 31 7 - 55 Units/L [facility] AST 23 10 - 50 Units/L [facility] Blood 05/21/2021 7:48 PM [employer] 05/21/2021 8:04 PM [employer] Beatriz Treadwell MD LAB BLOOD ORDERABLES Final Result Performing Organization Address [facility]/ZIP Co de Phone Number [facility] Department [place] [address] * TSH reflex to free T4 (05/21/2021 7:48 PM [employer]) TSH 1.00 0.30 - 4.20 mcIUnit/mL [facility] Blood 05/21/2021 7:48 PM [employer] 05/21/2021 8:04 PM [employer] Beatriz Treadwell MD LAB BLOOD ORDERABLES Final Result Performing Organization Address [facility]/ZIP Co de Phone Number [facility] Department [place] [address] * (ABNORMAL) aPTT (05/21/2021 7:48 PM [employer]) aPTT 41(H) 27 - 37 sec [facility] Comment: Interpretive Data Therapeutic heparin range: 60.0 - 94.0 seconds. Based on correlation with therapeutic heparin activity range of 0.3-0.7 Units/mL. Current interpretive data was last revised on 2020. Blood 05/21/2021 7:48 PM [employer] 05/21/2021 8:07 PM [employer] Beatriz Treadwell MD LAB BLOOD ORDERABLES Final Result Performing Organization Address [facility] [address] * Protime-INR (05/21/2021 7:48 PM [employer]) PT 12.2 9.5 - 13.6 sec [facility] INR 1.1 0.9 - 1.2 [facility] Comment: Interpretive data Oral anticoagulant therapeutic ranges: Venous thromboembolism prophylaxis or treatment: 2.0-3.0 CARDIOLOGY Standard range: 2.0-3.0 High-intensity range: 2.5-3.5 Refer to indication-specific guidelines for appropriate target ranges for prosthetic heart valve replacement. Current interpretive data was last revised on 2019. Blood 05/21/2021 7:48 PM [employer] 05/21/2021 8:07 PM [employer] Beatriz Treadwell MD LAB BLOOD ORDERABLES Final Result Performing Organization Address [facility] [place] [place] [address] * Troponin I high-sensitivity series (baseline, 2hr, 4hr, 6hr) (05/21/2021 7:48 PM [employer]) Trop I hs <4 <=35 ng/L [facility] Comment: Interpretive Data For further [facility] resources including the diagnostic algorithm and an aid in interpretation, copy and paste this link: https://bjhlab.testcatalog.org/show/hsTrop-[email or web address] Current Interpretive Data last revised 2019. Blood 05/21/2021 7:48 PM [employer] 05/21/2021 8:04 PM [employer] Beatriz Treadwell MD LAB BLOOD ORDERABLES Final Result [facility] Department [place] [address] * CBC with auto differential (05/21/2021 7:48 PM [employer]) [facility] WBC 9.7 3.8 - 9.9 K/cumm [facility] Hgb 16.1 13.0 - 17.5 g/dL [facility] Hct 47.9 38.9 - 50.3 % [facility] Plt 245 150 - 400 K/cumm [facility] MPV 10.2 9.1 - 12.3 fL [facility] RBC 5.42 4.30 - 5.80 M/cumm [facility] MCV 88.4 81.3 - 96.4 fL [facility] MCH 29.7 27.1 - 33.3 pg [facility] MCHC 33.6 32.3 - 35.7 g/dL [facility] RDW CV 12.0 11.1 - 14.9 % [facility] RDW SD 38.5 35.7 - 48.1 fL [facility] NRBC abs 0.00 0.00 - 0.01 K/cumm [facility] Blood 05/21/2021 7:48 PM [employer] 05/21/2021 8:04 PM [employer] Beatriz Treadwell MD LAB BLOOD ORDERABLES Final Result [facility] Department [place] [address] documented in this encounter Visit Diagnoses Diagnosis [...] IschemiaIndications:cerebral ischemia,Cerebral Ischemia Given 05/24/2021 8:07 AM [employer] 325 mg Given 05/23/2021 8:15 AM [employer] 325 mg Given 05/22/2021 3:11 AM [employer] 325 mg atorvastatin (LIPITOR) tablet 80 mg 80 mg, oral, Daily, First dose on Sat05/22/21 at 0900, Indications: hyperlipidemiaIndications:hyperlipidemia Given 05/24/2021 8:07 AM [employer] 80 mg Given 05/23/2021 8:15 AM [employer] 80 mg Given 05/22/2021 8:28 AM [employer] 80 mg bisacodyL (DULCOLAX) suppository 10 mg [...] otherwise manipulate tablet/capsule. Given 05/24/2021 8:07 AM [employer] 600 mg Given 05/23/2021 8:31 PM [employer] 600 mg Given 05/23/2021 8:14 AM [employer] 600 mg clopidogreL (PLAVIX) tablet 300 mg 300 mg, oral, Once, On Sat05/22/21 at 1115, For 1 dose Given 05/22/2021 11:15 AM [employer] 300 mg clopidogreL (PLAVIX) tablet 75 mg 75 mg, oral, Daily, First dose on Sat05/23/21 at 0900, For 21 days Given 05/24/2021 8:07 AM [employer] 75 mg Given 05/23/2021 8:14 AM [employer] 75 mg enoxaparin (LOVENOX) syringe 40 mg 40 mg, subcutaneous, Daily (for enoxaparin), First dose on Sat05/22/21 at 2100, Indications: Deep Vein Thrombosis PreventionIndications:Deep Vein Thrombosis Prevention Given 05/23/2021 8:32 PM [employer] 40 mg Right Lower Abdomen Given 05/22/2021 9:02 PM [employer] 40 mg Le ft Lower Abdomen fluticasone propionate (FLONASE) 50 mcg/actuation nasal spray 1 spray 1 spray, each nostril, Daily, First dose on Sat05/22/21 at 0900 Given 05/24/2021 8:09 AM [employer] 1 spray Given 05/23/2021 8:15 AM [employer] 1 spray Given 05/22/2021 8:54 AM [employer] 1 spray ioversoL (OPTIRAY 350) syringe syringe 100 mL 100 mL, intravenous, Once in imaging, contrast, Starting on Sat05/22/21 at 0121, For 1 dose Contrast Given 05/22/2021 1:58 AM [employer] 95 mL Lactated Ringer's (LR) bolus 500 mL 500 mL, intravenous, Once, On Sat05/22/21 at 1100, For 1 dose New Bag 05/22/2021 11:18 AM [employer] 500 mL ondansetron (ZOFRAN) injection 4 mg [...] Non-Bleeding Gastric Disorder Given 05/24/2021 8:07 AM [employer] 40 mg Given 05/23/2021 8:14 AM [employer] 40 mg Given 05/22/2021 8:28 AM [employer] 40 mg polyethylene glycol (MIRALAX) packet 17 g 17 g, oral, Daily PRN, constipation, Starting on Sat05/22/21 at 0228, Indications: constipationIndications:constipation rOPINIRole (REQUIP) tablet 0.5 mg 0.5 mg, oral, Nightly, First dose on Sat05/22/21 at 2100 Given 05/23/2021 8:31 PM [employer] 0.5 mg Given 05/22/2021 9:02 PM [employer] 0.5 mg sodium chloride 0.9% flush 0.5-20 mL 0.5-20 mL, intra-catheter, Every 8 hours scheduled, First dose on Sat05/22/21 at 0600, Flush volume based on line type and size. Given 05/23/2021 8:32 PM [employer] 10 mL Given 05/23/2021 2:16 PM [employer] 10 mL Given 05/22/2021 9:02 PM [employer] 10 mL sodium chloride 0.9% flush 0.5-20 mL 0.5-20 mL, intra-catheter, As needed, line care, Starting on Sat05/22/21 at 0224, Flush volume based on line type and size. Flush before and after each use. sodium chloride 0.9% infusion 125 mL/hr, intravenous, Continuous, Starting on Sat05/22/21 at 0315, For 10 hours New Bag 05/22/2021 3:12 AM [employer] 125 mL/hr 125 mL/hr traZODone (DESYREL) tablet 25 mg 25 mg, oral, Nightly PRN, sleep, Starting on Sat05/22/21 at 0259 Given 05/22/2021 3:11 AM [employer] 25 mg umeclidinium-vilanteroL (ANORO ELLIPTA) 62.5-25 mcg/actuation inhaler 1 puff 1 puff, inhalation, Daily (respiratory care technician), First dose on Sat05/22/21 at 0800 Given 05/22/2021 10:44 AM [employer] 1 puff umeclidinium-vilanteroL (ANORO ELLIPTA) 62.5-25 mcg/actuation inhaler 1 puff 1 puff, inhalation, Daily, First dose (after last modification) on Sat05/23/21 at 0900 Given 05/24/2021 8:09 AM [employer] 1 puff Given 05/23/2021 10:06 AM [employer] 1 puff valproate (DEPAKENE) capsule 500 mg 500 mg, oral, 4 times daily, First dose on Sat05/22/21 at 0800, Do not crush, break, or open. Given 05/24/2021 11:11 AM [employer] 500 mg Given 05/24/2021 8:07 AM [employer] 500 mg Given 05/23/2021 8:31 PM [employer] 500 mg documented in this encounter Discontinued [...] Recently Administered Medications Times are shown in [employer]. Scheduled Medication Order 05/22/2021 05/23/2021 05/24/2021 aspirin [...] puff (CANCELED) 1 puff, inhalation, Daily (respiratory care technician), First dose on Sat05/22/21 at 0800 1044 (Given - Provider: Jasmeet Tello, INSTALLATION AND SERVICE TECHNICIAN) umeclidinium-vilanteroL (ANORO ELLIPTA) 62.5-25 mcg/actuation inhaler 1 [...] IP CONSULT TO SPIRITUAL CARE 1 05/22/[address]/MEDICAL INTERPRETER CONSULT 1 05/22/2021 IP CONSULT TO NEUROLOGY 2 05/21/2021 ADT Patient Update Count Last Ordered Date Firs t Ordered Date ED IP DECISION TO ADMIT 1 05/22/2021 documented in this encounter Additional Health Concerns 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
--- OUTSIDE RECORDS SUMMARY | 2024-03-22 23:49 | XMS_ITS | Encounter Summary ---
Author Organization [facility] Address [address] [place] [address] Phone Care Team Providers Care Extractor Operator Helper Name Role Phone Stephan Donald MD Primary Care Provide r Reason for Referral * Cardiology (Routine) - Closed Specialty Diagnoses / Procedures Referred By Contac t Referred To Contact Diagnoses Atherosclerosis of [place] coronary artery without angina pectoris Procedures ECG 12 lead Chong López MD Phone: tel: fax: [facility] (All Locations) Referral ID Status Reason Start Date Expiration Date Visits Re quested Visits Authorized [id number] Closed 12/13/2020 01/12/2022 1 1 Encounter Details Date Type Department Care Team (Late st Contact Info) Description 12/13/2020 1:40 PM CDT Office Visit [facility] Cardiology [address] 8th [place] [address] [place] [address] Chong López MD [address] [facility] [address] [place] [address] Atherosclerosis of [place] coronary artery without angina pectoris (Primary Dx); [...] on file Legal Sex Male 2:59 AM SCRIPT MANAGER Gender Identity Not on file Sexual [...] 1:40 PM CDT Our office number is [phone], Mora and Valerie are RN's Start Losartan [...] Medicine Cardiovascular Division Annabelle Donald MD [address] [facility] [address] [facility] [address] Patient Name: Humza Recio Date of : 1950 Date of Visit: 12/13/2020 Primary and Secondary Diagnoses: ANGLE on CPAP Seizure Disorder (on carbamazepine/depakote) 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 Recio today in the [facility]Vascular center today. The patient was recently admitted to [facility] 08/19-08/24/20 with petechial rash. Rheumatology and dermatology were both consulted and he was started on a short prednisone course given c/f small vessel vasculitis. He was noted to have bloody diarrhea as well as OSH prior to transfer to [facility] treated with levaquin/flagyl. Given c/f bowel involvement [...] (Patient not taking: Reported on 12/13/2020) ??? oqlinexg-skihnfmnx-ppiOJUNBnjsch (MAXITROL) 3.5mg/mL-10,000 unit/mL-0.1 % ophthalmic xocgdgidjiogczstmy-vxytaauaq-hxmgxbmw 3.5 mg/mL-10,000 unit/mL-0.1% eye drops INSTILL 1 [...] and Family: Not on file ??? Attends [employer]az[employer] Services: Not on file ??? Active Member [...] ulcers or skin rash noticed. Laboratory Data: [facility] 2017: non-obstructive CAD TTE 2017: normal LV/RV [...] Division of Cardiovascular Medicine Department of Medicine [facility] Cosigned by Chong López MD at 12/13/2020 [...] ECG 12 lead ECG Routine Atherosclerosis of [place] coronary artery without angina pectoris Ordered: 12/13/2020 Basic metabolic panel Lab Routine Primary hypertension Expected: 12/21/2020, Expires: 12/13/2021 Comprehensive metabolic panel Lab Routine Hyperlipidemia, unspecified hyperlipidemia type Expected: 01/30/2021, Expires: 12/13/2021 Lipid panel Lab Routine Hyperlipidemia, unspecified hyperlipidemia type Expected: 01/30/2021, Expires: 12/13/2021 documented as of this encounter Visit Diagnoses Diagnosis Atherosclerosis of [place] coronary artery without angina pectoris- Primary Primary [...] BY MOUTH TWICE DAILY WITH FOOD 12/13/2020 gvvhfmel-xtaareuri-yka AMETHasone (MAXITROL) 3.5mg/mL-10,000 unit/mL-0.1 % ophthalmic suspension unjbzacx-yclyztqiu-ugg ameth 3.5 mg/mL-10,000 unit/mL-0.1% eye drops INSTILL [...] 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
--- OUTSIDE RECORDS SUMMARY | 2024-03-22 23:49 | XMS_ITS | Encounter Summary ---
Author Organization [facility] Healthcare Address [address] [place] [address] Care Team Providers Care Historiographer Name Role Phone Stephan Donald MD Primary Care Provide r Encounter Details Date Type Department Care Team (Latest Contact Info) Description 05/23/2021 8:05 AM REHABILITATION COUNSELOR - 05/23/2021 11:59 PM REHABILITATION COUNSELOR Hospital Encounter [facility] Cardiac Diagnostic Lab [address] [place] [address] Discharge Disposition: Discharge to home or self [...] on file Legal Sex Male 2:59 AM REHABILITATION COUNSELOR Gender Identity Not on file Sexual Orientation [...] W BUBBLE Pending Discharge 05/23/2021 9:58 AM REHABILITATION COUNSELOR documented in this encounter Visit Diagnoses Not [...] Intra-Procedure (CV) Contrast Given 05/23/2021 9:58 AM REHABILITATION COUNSELOR 4 mL documented in this encounter Orders Medications Ordered That Buck ht Not Have Been Administered Count Last Ordered Date First Ordered Date perflutren protein-a (OPTISO N) 3 mL in sodium chloride 0.9% 8 mL syringe 1 05/23/2021 documented in this encounter Care Teams Historiographer Relationship Specialty Start Date End Date Stephan Donald MD [address] [address] PCP - General 12/16/17 documented as of this encounter
--- OUTSIDE RECORDS SUMMARY | 2024-03-22 23:49 | XMS_ITS | Encounter Summary ---
Author Organization [facility] Healthcare Address [address] [place] [address] Care Team Providers Care Political Worker Name Role Phone Stephan Donald MD Primary Care Provide r Encounter Details Date Type Department Care Team (Late st Contact Info) Description 05/30/2021 Telephone [facility] 1 [place] [address] Kristel Orellana, LOCO Social History Tobacco Use [...] on file Legal Sex Male 2:59 AM LABEL PRINTER Gender Identity Not on file Sexual Orientation Not on file documented as of this encounter Miscellaneous Notes * Telephone Encounter - Kristel Orellana RN - 05/30/2021 2:26 PM LABEL PRINTER Stroke Follow Up Spoke with: Patient L PRINTER documented in this encounter Plan of Treatment Not on file documented as of this encounter Visit Diagnoses Not on filedocumented in this encounter Care Teams Political Worker Relationship Specialty Start Date End Date Stephan Donald MD [address] [place] [address] PCP - General 12/16/17 documented as of this encounter
--- OUTSIDE RECORDS SUMMARY | 2024-03-22 23:49 | XMS_ITS | Referral Summary ---
Author Organization [facility] Office Building [address] [place] [address] Care Team Providers Care Woodworking Machine Offbearer Name Role Phone Stephan Donald MD Primary Care Provide r Chong López MD Unavailable [phone] Annika Daniel RN Unavailable Unavailable Allergies No [...] attack) 05/22/2021 Primary hypertension 11/10/2020 Atherosclerosis of [place] co ronary artery without angina pectoris 11/10/2020 [...] on file Legal Sex Male 2:59 AM EDUCATION INSTRUCTOR Gender Identity Not on file Sexual Orientation Not on file Last Filed Vital Signs Vital Sign Reading Time Taken Comments Blood Pressure 138/99 05/24/2021 11:15 AM EDUCATION INSTRUCTOR Pulse 74 05/24/2021 11:15 AM EDUCATION INSTRUCTOR Temperature 36.5 ??C (97.7 ??F) 05/24/2021 11:[address] Respiratory Rate 18 05/24/2021 11:15 AM EDUCATION INSTRUCTOR Oxygen Saturation 94% 05/24/2021 11:15 AM EDUCATION INSTRUCTOR Inhaled Oxygen Concentration - - Weight 102.1 kg (225 lb) 05/21/2021 7:44 PM EDUCATION INSTRUCTOR Height 177.8 cm (5' 10 ) 05/21/2021 7:44 PM EDUCATION INSTRUCTOR Body Mass Index 32.28 05/21/2021 7:44 PM EDUCATION INSTRUCTOR Plan of Treatment Not on file Procedures Procedure Name Priority Date/Time Associated Diagnosis Comments HEPATITIS C ANTIBODY Timed 08/19/2020 6:[address] ABDOMEN PELVIS W CONTRAST ED 08/19/2020 12:44 AM CDT from Last 3 Months or Most Recently Relevant to Health Maintenance Results * Hepatitis C antibody (08/19/2020 6:15 AM CDT) Hep C Ab Nonreactive Nonreactive [facility] Comment:Antibodies to HCV no t detected. Does NOT exclude the possibility of recent exposure to HCV. Blood specimen (specimen) 08/19/2020 6:15 AM CDT 08/19/2020 6:29 AM CDT us Amaad Rashawn Carmona MD LAB MICROBIOLOGY - GENERAL ORDERABLES Edited Result - Final [facility] Department [place] [address] * CT Abdomen Pelvis W Contrast (08/19/2020 [...] by: Chon Burton M.D. Dann Aldana MD [facility] [place] PROCEDURES Edited Res ult - Final from Last 3 Months or Most Recently Relevant to Health Maintenance Insurance [facility] TRADITIONAL Member Subscriber Plan / Payer (Ef fective 2013-Present) Name:Humza Recio Relation to Subscriber:Self Name:Humza Recio Payer ID:[id number] (NAIC) Group ID:[id number] Type:[employer] Address: [address] MEDICARE [facility] FEDERAL MEDICARE Advance Directives For more information, please contact: [phone] * Full Code (Latest Code Status on File) Date Activated Date Inactivated Comments 05/22/2021 2:32 AM 05/24/2021 7:04 PM * Full Code Date Activated Date Inactivated Comments 08/19/2020 5:38 AM 08/24/2020 8:46 PM Care Teams Woodworking Machine Offbearer Relationship Specialty Start Date End Date Stephan Donald MD [address] [facility] [address] [place] [address] PCP - General 12/16/17 Chong López MD [address] [facility] [address] [place] [address] Referring Physician Cardiology 01/01/22 Annika Daniel, assistant golf professional Failure Coordinator Transplant 04/24/23
--- OUTSIDE RECORDS SUMMARY | 2024-03-22 23:50 | XMS_ITS | Encounter Summary ---
Author Organization [facility] Address [address] [facility] [address] [place] [address] Care Team Providers Care Pulp Machine Operator Name Role Phone No, Physician Primary Care Provider [phone] Reason for Visit * Reason Comments New Patient Pain Encounter Details Date Type Department Care Team (Late st Contact Info) Description 03/19/2017 3:15 PM FREIGHT ELEVATOR OPERATOR Office Visit [facility] [address] [address] [place] [address] [address] Chronic midline low back pain [...] on file Legal Sex Male 2:59 AM FREIGHT ELEVATOR OPERATOR Gender Identity Not on file Sexual Orientation Not on file documented as of this encounter Last Filed Vital Signs Vital Sign Reading Time Taken Comments Blood Pressure - - Pulse - - Temperature - - Respiratory Rate - - Oxygen Saturation - - Inhaled Oxygen Concentration - - Weight 97.5 kg (215 lb) 03/19/2017 3:28 PM FREIGHT ELEVATOR OPERATOR Height 177.8 cm (5' 10 ) 03/19/2017 3:28 PM FREIGHT ELEVATOR OPERATOR Body Mass Index 30.85 03/19/2017 3:28 PM FREIGHT ELEVATOR OPERATOR documented in this encounter Ordered Prescriptions Prescription [...] physical. 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 I have personally seen interpreted this MRI [...] spine. Plan As above Remy Solis MD GHT ELEVATOR OPERATOR documented in this encounter Plan of Treatment [...] 12/13/2020 added in this encounter Care Teams Pulp Machine Operator Relationship Specialty Start Date End Date No, Physician PCP - General 03/08/17 12/15/17 documented as of this encounter
--- OUTSIDE RECORDS SUMMARY | 2024-03-22 23:50 | XMS_ITS | Encounter Summary ---
Author Organization [facility] Healthcare Address [address] [place] [address] Care Team Providers Care Boat Canvas Installer Name Role Phone No, Physician Primary Care Provider [phone] Encounter Details Date Type Department Care Team (Latest Contact Info) Description 03/01/2017 7:39 AM CONFERENCE SERVICES MANAGER - 03/01/2017 11:59 PM CONFERENCE SERVICES MANAGER Hospital Encounter [facility] Respiratory [id number] [place] [address] [place] [phone] [address] [place] [address] [address] Chronic obstructive pulmonary disease with acute exacerbation (CMS/HCC) Discharge Disposition: Discharge to home or self care Social History Tobacco Use Types Packs/Day Years Used Date Smoking Tobacco: Never Assessed Sex and Gender Information Value Date Recorded Sex Assigned at Not on file Legal Sex Male 2:59 AM CONFERENCE SERVICES MANAGER Gender Identity Not on file Sexual [...] Associated Diagnoses Date /Time Pulmonary Function Test -[facility]; Complete/Full PFT Routine Chronic obstructive pulmonary disease with acute exacerbation (CMS/HCC) 03/01/2017 10:08 AM CONFERENCE SERVICES MANAGER Scheduled Orders Name Type Priority Associated Diagnoses Orde r Schedule Pulmonary Function Test -[facility]; Complete/Full PFT Routine Chronic obstructive pulmonary disease with acute exacerbation (CMS/HCC) Once for 1 Occurrences starting 03/01/2017 until 03/01/2017 documented as of this encounter Visit Diagnoses Diagnosis Chronic obstructive pulmonary disease with acute exacerbation (HCC) documented in this encounter Care Teams Boat Canvas Installer Relationship Specialty Start Date End Date No, Physician PCP - General 02/18/17 03/03/17 documented as of this encounter
--- OUTSIDE RECORDS SUMMARY | 2024-03-22 23:50 | XMS_ITS | Encounter Summary ---
Author Organization [facility] Healthcare Address [address] [place] [address] Care Team Providers Care Tobacco Sizer Name Role Phone Stephan Donald MD Primary Care Provide r Reason for Referral * Diagnostic Imaging (Routine) - Closed Specialty Diagnoses / Procedures Referred By Bareny ruggiero Referred To Contact Radiology Diagnoses Solitary pulmonary nodule Procedures PET/CT FDG Skull to Thigh Kamlesh Ricardo MD Phone: tel: fax: Referral ID Status Reason Start Date Expiration Date Visits Re quested Visits Authorized [id number] Closed 12/06/2017 06/17/2019 2 2 Reason for Visit * Diagnostic Imaging (Routine) - Closed Specialty Diagnoses / Procedures Referred By Barney ruggiero Referred To Contact Radiology Diagnoses Solitary pulmonary nodule Procedures PET/CT FDG Skull to Thigh Kamlesh Ricardo MD Phone: tel: fax: Referral ID Status Reason Start Date Expiration Date Visits Re quested Visits Authorized [id number] Closed 12/06/2017 06/17/2019 2 2 Encounter Details Date Type Department Care Team (Latest Contact Info) Description 12/17/2017 8:31 AM CDT - 12/17/2017 11:59 PM CDT Hospital Encounter [facility] Imaging and Radiology [address] [place], [place] [id number] Kamlesh Ricardo MD [address] [place] [address] Solitary pulmonary nodule Discharge Disposition: Discharge to [...] on file 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
--- OUTSIDE RECORDS SUMMARY | 2024-03-22 23:50 | XMS_ITS | Encounter Summary ---
Author Organization [facility] Address [address] [facility] [address] [place] [address] Care Team Providers Care Cupboard Builder Name Role Phone No, Physician Primary Care Provider [phone] Encounter Details Date Type Department Care Team (Late st Contact Info) Description 05/21/2017 Orders Only [facility] [address] [facility] [address] [place] [address] [place] [address] [facility] [address] [place] [address] Social History Tobacco Use Types Packs/Day Years Used Date Smoking Tobacco: Former Cigarettes Q uit: 09/17/2016 Smokeless Tobacco: Never Alcohol Use Standard Drinks/Week Comments Defer 0 (1 standard drink = 0.6 oz pur e alcohol) Sex and Gender Information Value Date Recorded Sex Assigned at Not on file Legal Sex Male 2:59 AM PHYSICIAN/INTERNIST Gender Identity Not on file Sexual Orientation [...] on filedocumented in this encounter Care Teams Cupboard Builder Relationship Specialty Start Date End Date No, Physician PCP - General 03/08/17 12/15/17 documented as of this encounter
--- OUTSIDE RECORDS SUMMARY | 2024-03-22 23:50 | XMS_ITS | Encounter Summary ---
Author Organization [facility] Healthcare Address [address] [place] [address] Care Team Providers Care Concrete Form Setter Name Role Phone No, Physician Primary Care Provider [phone] Encounter Details Date Type Department Care Team (Latest Contact Info) Description 03/01/2017 7:00 AM AGRICULTURAL MECHANIC - 03/01/2017 11:59 PM AGRICULTURAL MECHANIC Hospital Encounter [facility] Diagnostic Imaging [address] [place] [address] [place] [address] [address] [place] [phone] [address] Obstructive chronic bronchitis without exacerbation (CMS/HCC) Discharge Disposition: Discharge to home or self care Social History Tobacco Use Types Packs/Day Years Used Date Smoking Tobacco: Never Assessed Sex and Gender Information Value Date Recorded Sex Assigned at Not on file Legal Sex Male 2:59 AM AGRICULTURAL MECHANIC Gender Identity Not on file Sexual [...] Read Routine (OP Routine) 03/01/2017 7:33 AM AGRICULTURAL MECHANIC Obstructive chronic bronchitis without exacerbation (CMS/HCC) documented in this encounter Results * XR Chest Pa Lateral 2 Views (03/01/2017 7:33 AM AGRICULTURAL MECHANIC) Anatomical Region Laterality Modality Body, Chest N/A Computed Radiogr aphy Impressions 03/01/2017 8:30 AM AGRICULTURAL MECHANIC Mild left basilar atelectasis. T8 compression deformity. Electronically signed by: Paige Fink M.D. Narrative 03/01/2017 8:30 AM AGRICULTURAL MECHANIC RESULT: EXAMINATION: PA AND LATERAL CHEST RADIOGRAPHS [...] signed by: Paige Fink M.D. Chris Castellon CAR CLEANING SUPERVISOR IMG XR PROCEDURES Final Result documented in this encounter Visit Diagnoses Diagnosis Obstructive chronic bronchitis without exacerbation (HCC) Obstructive chronic bronchitis without exacerbation documented in this encounter Care Teams Concrete Form Setter Relationship Specialty Start Date End Date No, Physician PCP - General 02/18/17 03/03/17 documented as of this encounter
--- OUTSIDE RECORDS SUMMARY | 2024-03-22 23:50 | XMS_ITS | Encounter Summary ---
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 Procedure Note Maeghan Collins MD - 12/06/2017 RESULT: HISTORY: The [...] nodule documented in this encounter Care Teams Customer Contact Sales Associate Relationship Specialty Start Date End Date No, Physician PCP - General 03/08/17 12/15/17 documented as of this encounter
--- OUTSIDE RECORDS SUMMARY | 2024-03-22 23:51 | XMS_ITS | Clinical Summary ---
Author Organization Unknown Care Team Providers Care Energy Conservation Representative Name Role Phone HEBERTSTEPHENWAGNER Negron Unavailable Unavailable MAURA PHYSICAL THERAPIST, RY Unavailable Unavailable WILLIAM FRENCH CORD BINDER, NÉSTOR Unabassam ailable Unavailable VANDANA REGISTERED NURSE, ISIS Unavailable Unavailable KRISTINA CFSS, OT, MUNA Unavailable Rafaela audrey REDDY OCCUPATIONAL THERAPIST, IVIS Garcia le Unavailable Payers Payer Name Policy Type Policy Number Effective Date Expira tion Date MEDICARE [place] - EPISODIC [id number] Problems Condition Name Condition Details Condition Category Status Onset Date Resolution Date Last Treatment Date Treating Clinician Comments ESSENTIAL (PRIMARY) HYPERTENSION Active 05-26 00:00: 00 ATHSCL HEART DISEASE OF [place] CORONARY ARTERY W/O ANG PCTRS Active 05-26 00:00: 00 CHRONIC OBSTRUCTIVE PULMONARY DISEASE, UNSPECIFIED Active 05-26 00:00: 00 HYPERLIPIDEM IA, UNSPECIFIED Active 05-26 00:00: 00 EPILEPSY, UNSP, NOT INTRACTABLE, WITHOUT STATUS EPILEPTICUS Active 05-26 00:00: 00 OTHER CHRONIC PAIN Active 05-26 00:00: 00 UNSPECIFIED OSTEOARTHRIT IS, UNSPECIFIED SITE Active 05-26 00:00: 00 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 (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) USE OF ANTITHROMBOT ICS/ANTIPLAT ELETS Active 05-26 00:00: 00 ASSISTED (CURRENT) USE OF INHALED STEROIDS Active 05-26 [...] on aerosol inhaler 05-26 00:00: 00 Yes [id number] COPD 1 puff NEEDED 1 puff NEEDED (route: inhalation ) Med Classific ation: Respirato ry Therapy Agents aspirin 81 mg tablet,fabienne yed release 05-26 00:00: 00 Yes [id number] HYPERTENSIO N 1 tablet DAILY 1 tablet DAILY (route: oral) Med Classific ation: Hematolog ical Agents atorvastati n 40 mg tablet 05-26 00:00: 00 Yes [id number] HYPERLIPIDE EKATERINA 2 tablet DAILY 2 tablet DAILY (route: oral) Med Classific ation: Cardiovas cular Therapy Agents carbamazepi ne ER 300 mg capsule,ext ended release [id number] 05-26 00:00: 00 Yes [id number] SEIZURES 2 capsule 2 TIMES DAILY 2 capsule 2 TIMES DAILY (route: oral) Med Classific ation: Central Nervous System Agents clopidogrel 75 mg tablet 05-26 00:00: 00 Yes [id number] HYPERTENSIO N 1 tablet DAILY 1 tablet DAILY (route: oral) Med Classific ation: Hematolog ical Agents fluticasone propionate 50 mcg/actuati on nasal spray,suspe nsion 05-26 00:00: 00 Yes [id number] ALLERGIES 1 spray DAILY 1 spray DAILY (route: nasal) Med Classific ation: Respirato ry Therapy Agents hydrochloro thiazide 25 mg tablet 05-26 00:00: 00 Yes [id number] HYPERTENSIO N 1 tablet DAILY 1 tablet DAILY (route: oral) Med Classific ation: Cardiovas cular Therapy Agents loratadine 10 mg tablet 05-26 00:00: 00 Yes [id number] ALLERGIES 1 tablet DAILY 1 tablet DAILY (route: oral) Med Classific ation: Respirato ry Therapy Agents lorazepam 0.5 mg tablet 05-26 00:00: 00 Yes [id number] ANXIETY 1 tablet NEEDED 1 tablet NEEDED (route: oral) Med Classific ation: Central Nervous System Agents losartan 50 mg tablet 05-26 00:00: 00 Yes [id number] HYPERTENSIO N 1 tablet DAILY 1 tablet DAILY (route: oral) Med Classific ation: Cardiovas cular Therapy Agents multivitami n tablet 05-26 00:00: 00 Yes [id number] SUPPLEMENT 1 tablet DAILY 1 tablet DAILY (route: oral) Med Classific ation: Electroly te Balance-N utritiona l Products pantoprazol e 40 mg tablet,fabienne yed release 05-26 00:00: 00 Yes [id number] GERD 1 tablet DAILY 1 tablet DAILY (route: oral) Med Classific ation: Gastroint estinal Therapy Agents ropinirole 0.5 mg tablet 05-26 00:00: 00 Yes [id number] RESTLESS LEGS 1 tablet BEDTIME 1 tablet BEDTIME (route: oral) Med Classific ation: Central Nervous System Agents sertraline 50 mg tablet 05-26 00:00: 00 Yes [id number] DEPRESSION 1 tablet DAILY 1 tablet DAILY (route: oral) Med Classific ation: Central Nervous System Agents Spiriva Respimat 2.5 mcg/actuati on solution for inhalation 05-26 00:00: 00 Yes [id number] COPD 1 puff DAILY 1 puff DAILY (route: inhalation ) Med Classific ation: Respirato ry Therapy Agents valproic acid 250 mg capsule 05-26 00:00: 00 Yes [id number] SEIZURES 2 capsule 3 TIMES DAILY 2 [...] WILL BE ESTABLISHED THAT MEETS ALL PATIENT'S JAIL NEEDS AND COUNTER SIGNED BY PHYSICIAN. Goal [...] DRESSING, BATHING, TOILETING, GROOMING, HOUSEHOLD CLEANING, LAUNDRY, FLOOR BROKER LOAD/UNLOAD, DISHES, MEAL PREPARATION, MAIL RETREIVAL, TRASH COLLECTION, AND COMMUNITY RE-ENTRY TASKS WITH INDEPENDENT/MODIFIED INDEPENDENT. PATIENT WILL BE ABLE TO DEMONSTRATE CONSISTENT APPLICATION OF ENERGY CONSERVATION TECHNIQUES INSTRUCTED THAT IMPROVE FUNCTIONAL MOBILITY PERFORMANCE. Goal Provider Goal - NONE Reason for Visit INDEPENDENT IN THE COMMUNITY Encounters Start Date/Time End Date/Time Encounter Type Admission Type Attending [facility] Care Department Encounter ID Discharge Date Discharge Status Discharge Condition Discharge Reason Percent Goals Met 2021-05-26 00:00:00 2021-07-07 00:00:00 Outpatient NEW ADMISSION [facility] [id number] 00:00:00 DISCHARGE TO HOME OR SELF CARE INDEPENDEN T IN THE COMMUNITY GOALS MET 100.00
== END 2024-03-17 16:33 | disposition home or self-care (01) ==
LOC: ANHED 15:15 → ANH3MED 19:01
PROVIDERS: Family Medicine; Admitting Provider General Practice; Emergency Provider Emergency Medicine; PCP Internal Medicine; Visit Provider Nurse Practitioner Acute Care
DX: R33.9 Retention of urine, unspecified (principal); R35.0 Frequency of micturition; Z98.890 Other specified postprocedural states; R97.20 Elevated prostate specific antigen [PSA]; N40.0 Benign prostatic hyperplasia without lower urinary tract symptoms; J44.9 Chronic obstructive pulmonary disease, unspecified; E11.9 Type 2 diabetes mellitus without complications; G40.909 Epilepsy, unspecified, not intractable, without status epilepticus; G43.909 Migraine, unspecified, not intractable, without status migrainosus; M19.90 Unspecified osteoarthritis, unspecified site; Z87.891 Personal history of nicotine dependence; Z79.82 Long term (current) use of aspirin; Z79.899 Other long term (current) drug therapy; Z86.73 Personal history of transient ischemic attack (TIA), and cerebral infarction without residual deficits
CPT/HCPCS: 36415; 80048; 80053; 80164; 81001; 83605; 85025; 85027; 87086; 96361; 96365; 96367; 99285; A9270; G0378; J0696; J7030

== ENCOUNTER 2024-04-06 17:05 | Emergency (ER) | payer BC, SELFPAY ==
--- NOTE | ~2024-04-06 | CT_ITS ---
CLINICAL INDICATION: Dysuria with urinary retention COMPARISON: None. TECHNIQUE: Multiple contiguous axial images of the abdomen and pelvis were performed following the ad ministration of with 100 mL Omnipaque-350 intravenous contrast The dose-length product (DLP) was 1195.36 mGy-cm. Automated exposure control and iterative reconstruction technique were employed. FINDINGS/OBSERVATIONS: Visualized lower thorax: The bilateral lung bases are clear. The heart is of normal size, without pericardial effusion. Small hiatal hernia is present. Liver: Multiple well-circumscribed areas of decreased attenuation within the liver, for which simple cysts a re suspected. The remainder of the liver enhances homogeneously, without enlargement measuring 18 cm in longitudina l dimension. Gallbladder and biliary system: The gallbladder is only minimally distended, and otherwise unremarkable. Pancreas: The pancreas enhances homogeneously without ductal dilatation. Spleen: The spleen enhances homogeneously and is not enlarged measuring 8 cm in longitudinal dimension. Kidneys: Multiple well-circumscribed areas of decreased attenuation within the bilateral kidneys, too small to characterize, for which cysts are suspected. Ultrasound may be performed for confirmation. The remainder of the bilateral kidneys otherwise enhance symmetrically without hydronephrosis or tahir l calculi. Adrenal glands: Unremarkable. Gastrointestinal tract: Trace fecal stasis. Appendix: The air-filled appendix is of normal caliber (axial series, images 125 through 134) Vasculature: Unremarkable. No aneurysmal dilatation or significant stenosis. Lymph nodes: No pathologically enlarged or morphologically suspicious lymph nodes within the retroperitoneum or at the root of the mesentery. Pelvic structures: The bladder is distended with wall thickening and surrounding inflammatory change. Multiple diverticu la and are also noted, specifically within the fundus and to the right of midline. Two well-circumscribed foci of increased attenuation are identified within the bladder, for which autumn dder calculi are suspected. The largest is to the right of midline measuring 19.6mm in greatest dimen saad. The smaller of the 2 measures 16.5 mm in greatest dimension and is located to the left of midli ne. The prostate gland is enlarged and demonstrates trace surrounding inflammatory change. Increased attenuation is identified along the expected course of the urethra, possibly representing b lood products. Body wall and musculoskeletal: Evidence of prior laparoscopic hernia repair within the upper abdomen and at the level of the umbilic us. No significant degenerative disease within the lower thoracic or lumbosacral spine. IMPRESSION: Bladder wall thickening and distention with surrounding inflammatory change as well as multiple bladd er diverticulum. Two bladder calculi are also noted, as detailed above. Prostatic enlargement with surrounding inflammatory change. Well-circumscribed areas of decreased attenuation within both the liver and bilateral kidneys for whi ch simple cysts are suspected and for which nonemergent ultrasound may be performed for confirmation. Reviewed, dictated and finalized at location A. TY [employer] OFFICER IMPRESSION: Bladder wall thickening and distention with surrounding inflammatory change as well as multiple bladder diverticulum. Two bladder calculi are also noted, as detailed above. Prostatic enlargement with surrounding inflammatory change. Well-circumscribed areas of decreased attenuation within both the liver and shady ateral kidneys for which simple cysts are suspected and for which nonemergent u ltrasound may be performed for confirmation.
[2024-04-06 17:19] VITALS: BP 124/76; PULSE 111; RESP 20; TEMP 36.1; O2SAT 96
--- NOTE | 2024-04-06 17:27 | ED_ITS ---
HPI - Male Genitourinary General Chief complaint: Urogenital-Male <VIVEK Conde Last Filed: 04/06/24 18:18> Stated complaint: UTI symptoms, dysuria <VIVEK Conde Last Filed: 04/06/24 18:18> Time Seen by Provider: 04/06/24 17:27 <VIVEK Conde Last Filed: 04/06/24 18:18> Focused HPI: Patient is a 74-year-old male who presents the ED with report of difficulty urinating. Patient reports he has been dealing with UTIs intermittently since middle february. Has been admitted here. Had long catheter placed recently and was removed last . Is currently on Bactrim, but reports having worsening urinary trouble over the past few days. C/o trouble urinating, trouble initiating stream and emptying bladder, dysuria. Reports intermittent pain in lower abdomen, lower back. Denies hematuria, fever, N/V. GENERAL: Well-appearing, obese with BMI of 30.2, and in no acute distress. HEAD: Normocephalic, atraumatic. CHEST: Clear to auscultation. ?No respiratory distress. HEART: Regular rate and rhythm.? ABD: Mild TTP in lower abdomen, LLQ. +CVA tenderness on R. NEURO: ?Alert and oriented x3. Patient screened in triage and initial orders placed.? ?Additional care and disposition to be based upon?diagnostic testing and treatment. <VIVEK Conde Last Filed: 04/06/24 18:18> Source: patient <VIVEK Conde Last Filed: 04/06/24 18:18> Mode of arrival: ambulatory <VIVEK Conde Last Filed: 04/06/24 18:18> Limitations: no limitations <VIVEK Conde Last Filed: 04/06/24 18:18> History of Present Illness HPI Narrative: Agree with the above HPI. Patient states he had a biopsy of his prostate performed March 04 and since then has been having intermittent UTIs and Long catheters. States he most recently had a Long catheter removed on Saturday at his urologist office at [place]. He was also found have UTI and was placed on Bactrim which he states he has been taking as directed. States since then he has not been able to empty his bladder fully and has been dribbling urine. He also reports dysuria and lower abdominal pain. Denies fever, nausea or vomiting. States prostate biopsy was negative for cancer. History of COPD, diabetes, CVA. <Gabbie Candelaria PA-C - Last Filed: 04/07/24 00:28> Related Data Home medications: Home Medications ?Medication ?Instructions ?Recorded ?Confirmed ?Last Taken ?Type aspirin 81 mg tablet,delayed 81 mg PO DAILY 03/13/23 03/15/24 03/14/24 History release loratadine 10 mg tablet 10 mg PO DAILY 03/13/23 03/15/24 03/13/24 History sbylhivg-tjqfnwlk-iecji acid 400 1 tablet PO DAILY 03/13/23 03/15/24 03/13/24 History mcg-vit K 20 mcg-lycop 300 mcg tablet sertraline 50 mg tablet 50 mg PO DAILY 03/13/23 03/15/24 03/13/24 History atorvastatin 40 mg tablet 40 mg PO DAILY 03/15/24 03/15/24 03/13/24 History cefdinir 300 mg capsule 300 mg PO DAILY 03/15/24 03/15/24 03/15/24 History losartan 50 mg tablet 50 mg PO DAILY 03/15/24 03/15/24 03/13/24 History <Davida Maldonado PA-C - Last Filed: 04/06/24 18:18> Allergies/Adverse reactions: Allergies Allergy/AdvReac Type Severity Reaction Status Date / Time No Known Allergies Allergy Verified 04/06/24 17:26 <Davida Maldonado PA-C - Last Filed: 04/06/24 18:18> Review of Systems 2 Review of Systems: All systems reviewed & are unremarkable except as noted in HPI and below <Gabbie Candelaria PA-C - Last Filed: 04/07/24 00:28> PMFSH Past Medical History Medical History: Medical History Stroke Seizures Migraine Diabetes COPD (chronic obstructive pulmonary disease) Arthritis <Davida Maldonado PA-C - Last Filed: 04/06/24 18:18> Surgical History Surgical History: Surgical History History of hernia repair Status post surgical removal of malignant neoplasm of skin <Davida Maldonado PA-C - Last Filed: 04/06/24 18:18> Family History Family History: Family History Father Cancer Alcoholism Mother Diabetes mellitus Sibling Alcoholism Cancer Diabetes mellitus <Davida Maldonado PA-C - Last Filed: 04/06/24 18:18> Social History Social History: Social History Social History: Caffeine- coffee Smoking status: Never smoker Smoking end date: 03/25/16 Alcohol intake: never Substance use: never Substance use type: does not use Do You Feel Safe in your Home?: Yes Lack of Transportation: No Lack of Food: Never True Current Housing: I Have Housing Concerned About Future Housing: No Difficulty Paying Gas/Electric Bills: No Difficulty Paying for Meds: No Currently Unemployed: No Education: High School Diploma/GED Difficulty w/ Childcare or Family Care: No Living arrangements: alone Occupation/Education: retired Gender identity (if verbalized by the patient): Male Spiritual care concerns: No Agree to blood products: Yes <Davida Maldonado PA-C - Last Filed: 04/06/24 18:18> Exam 2 Narrative: GENERAL: Well-appearing, well-nourished, and in no acute distress. HEAD: Normocephalic, atraumatic. EYES: EOMI. ENT: Nares clear, no rhinorrhea or epistaxis. Mucous membranes moist. NECK: Supple. CHEST: Clear to auscultation. No respiratory distress. HEART: Regular rate and rhythm. No murmur heard. Normal peripheral pulses. ABDOMEN: Normal active bowel sounds. Abdomen soft tenderness in suprapubic region. No rebound or rigidity. Bilateral CVA tenderness EXTREMITIES: Normal range of motion. No edema. SKIN: Warm, dry, no rash. NEURO: No focal deficits. Alert and oriented x3 <Gabbie Candelaria PA-C - Last Filed: 04/07/24 00:28> Course NEWS PRODUCTION ASSISTANT/PA Physician Supervision For this patient encounter, I reviewed the NEWS PRODUCTION ASSISTANT or PA documentation, treatment plan, and medical decision making and had uygt-mj-albf time with this patient. I performed all aspects of the MDM as documented. <Tone Arroyo MD - Last Filed: 04/07/24 02:13> Vital Signs Vital signs: Vital Signs Temperature 97.0 F L 04/06/24 17:19 Pulse Rate 111 H 04/06/24 17:19 Respiratory Rate 20 04/06/24 17:19 Blood Pressure 124/76 04/06/24 17:19 Pulse Oximetry 96 04/06/24 17:19 Oxygen Delivery Room Air 04/06/24 17:19 Temperature 97.0 F L 04/06/24 17:19 Pulse Rate 89 04/07/24 00:50 Respiratory Rate 16 04/07/24 00:50 Blood Pressure 149/89 H 04/07/24 00:50 Pulse Oximetry 97 04/07/24 00:50 Oxygen Delivery Room Air 04/06/24 17:19 <Davida Maldonado PA-C - Last Filed: 04/06/24 18:18> Vital Signs Temperature 97.0 F L 04/06/24 17:19 Pulse Rate 111 H 04/06/24 17:19 Respiratory Rate 20 04/06/24 17:19 Blood Pressure 124/76 04/06/24 17:19 Pulse Oximetry 96 04/06/24 17:19 Oxygen Delivery Room Air 04/06/24 17:19 Temperature 97.0 F L 04/06/24 17:19 Pulse Rate 89 04/07/24 00:50 Respiratory Rate 16 04/07/24 00:50 Blood Pressure 149/89 H 04/07/24 00:50 Pulse Oximetry 97 04/07/24 00:50 Oxygen Delivery Room Air 04/06/24 17:19 <Gabbie Candelaria PA-C - Last Filed: 04/07/24 00:28> Vital Signs Temperature 97.0 F L 04/06/24 17:19 Pulse Rate 111 H 04/06/24 17:19 Respiratory Rate 20 04/06/24 17:19 Blood Pressure 124/76 04/06/24 17:19 Pulse Oximetry 96 04/06/24 17:19 Oxygen Delivery Room Air 04/06/24 17:19 Temperature 97.0 F L 04/06/24 17:19 Pulse Rate 89 04/07/24 00:50 Respiratory Rate 16 04/07/24 00:50 Blood Pressure 149/89 H 04/07/24 00:50 Pulse Oximetry 97 04/07/24 00:50 Oxygen Delivery Room Air 04/06/24 17:19 <Tone Arroyo MD - Last Filed: 04/07/24 02:13> MDM - Male Genitourinary MDM Narrative Medical decision making narrative: MSE by NAIDA in triage. <Davida Maldonado PA-C - Last Filed: 04/06/24 18:18> MSE by NAIDA in triage. 74-year-old male presents to the emergency department for incomplete bladder emptying and dysuria since his Long was removed on 04/12 by his urologist at [place], Dr. Lo. Triage vitals with tachycardia 111, otherwise unremarkable. Patient is afebrile and nontoxic appearing. Exam is significant for the above. Lab work shows no leukocytosis or anemia. Chemistries with stable renal function with a creatinine of 1.09 BUN of 13. Urinalysis is consistent infection greater than 100 wbc's 3+ leuk esterase. Urine culture is pending. Lactic is normal. CT abdomen pelvis shows bladder wall thickening and distention with surrounding inflammatory changes well as multiple bladder diverticula, 2 bladder calculi with the largest measuring 19.6 mm in the smallest measuring 16.5 mm. There is prostatic enlargement with surrounding inflammatory change. Postvoid bladder scan was greater than 300 cc, therefore Long catheter was placed with 500cc of clear yellow urine. Patient and daughter at bedside were updated on workup. States he feels much better after Long catheter was placed. She decision making regarding disposition. Patient feels safe with discharge home with follow-up with Urology. Advised to discontinue the Bactrim, will start ciprofloxacin pending urine culture results. Advised continuation of tamsulosin. Pt sent home with leg bag. Tachycardia resolved. Strict ED return precautions provided. They are agreeable to plan verbalized understanding. Discharged in stable condition. <Gabbie Candelaria PA-C - Last Filed: 04/07/24 00:28> Lab Data Result diagrams: 04/06/24 18:55 04/06/24 18:55 <Davida Maldonado PA-C - Last Filed: 04/06/24 18:18> Labs: Lab Results 04/06/24 04/06/24 Range/Units 18:55 23:49 WBC 8.7 (4.5-10.0) K/mm3 RBC 5.34 (4.6-6.20) M/mm3 Hgb 15.7 (14.0-18.0) g/dL Hct 47.9 (42.0-52.0) % MCV 89.7 (80-100) fl MCH 29.4 (26-34) pg MCHC 32.8 (32-36) g/dl RDW 12.3 (11.5-14.5) % Plt Count 246 (150-375) k/mm3 MPV 10.3 (7.4-10.4) fl Immature Gran % (Auto) 0.5 (0-0.5) % Neut % (Auto) 63.6 (45.5-73.1) % Lymph % (Auto) 22.8 (18.3-44.2) % [place] % (Auto) 10.4 H (2.6-8.5) % Eos % (Auto) 1.7 (0-4.4) % Baso % (Auto) 1.0 (0.2-1.2) % Lymph # (Auto) 1.99 (0.9-3.2) K/mm3 [place] # (Auto) 0.9 H (0.1-0.6) K/mm3 Eos # (Auto) 0.2 (0-0.3) K/mm3 Baso # (Auto) 0.1 (0.0-0.1) K/mm3 Abs Immat Gran (auto) 0.04 H (0.00-0.031) K/mm3 Absolute Neuts (auto) 5.5 (1.3-6.7) K/mm3 Absolute Nucleated RBC 0.000 (0.0-0.012) K/mm3 Nucleated RBC % 0.0 (0.0-0.2) % Sodium 140 (137-145) mmol/L Potassium 3.8 (3.4-5.0) mmol/L Chloride 105 (98-107) mmol/L Carbon Dioxide 27 (22-30) mmol/L Anion Gap 8 (4-12) mmol/L BUN 13 (9-20) mg/dL Creatinine 1.09 (0.7-1.3) mg/dL Estim Creat Clear Calc 63 ml/min Estimated GFR > 60 (59 - ) Glucose 110 (65-110) mg/dL Lactic Acid 1.0 (0.7-2.0) mmol/L Calcium 9.1 (8.4-10.2) mg/dL Total Bilirubin 0.5 (0.2-1.3) mg/dL AST 23 (17-59) U/L ALT 20 (6-50) U/L Alkaline Phosphatase 125 (38-126) U/L Total Protein 7.0 (6.3-8.2) g/dL Albumin 4.1 (3.5-5.1) g/dL Urine Color Yellow (Yellow) Urine Appearance Turbid H (Clear) Urine pH 6.0 (5.0-9.0) Ur Specific [place] 1.013 (1.001-1.035) Urine Protein 1+ H (Negative) mg/dL Urine Glucose (UA) Negative (Negative) mg/dL Urine Ketones Negative (Negative) mg/dL Ur Blood (Man) 1+ H (Negative) Urine Nitrate Negative (Negative) Urine Bilirubin Negative (Negative) Urine Urobilinogen 1.0 (<2.0) mg/dL Leukocyte Esterase Rfl 3+ H (Negative) NURIA/UL Urine RBC 3-5 H (0-2) /hpf Urine WBC >100 H (0-3) /hpf Ur Squamous Epith Cells None seen (Few) /hpf Urine Bacteria 4+ /hpf Urine Casts 3-5 <Davida Maldonado PA-C - Last Filed: 04/06/24 18:18> Lab Results 04/06/24 04/06/24 Range/Units 18:55 23:49 WBC 8.7 (4.5-10.0) K/mm3 RBC 5.34 (4.6-6.20) M/mm3 Hgb 15.7 (14.0-18.0) g/dL Hct 47.9 (42.0-52.0) % MCV 89.7 (80-100) fl MCH 29.4 (26-34) pg MCHC 32.8 (32-36) g/dl RDW 12.3 (11.5-14.5) % Plt Count 246 (150-375) k/mm3 MPV 10.3 (7.4-10.4) fl Immature Gran % (Auto) 0.5 (0-0.5) % Neut % (Auto) 63.6 (45.5-73.1) % Lymph % (Auto) 22.8 (18.3-44.2) % [place] % (Auto) 10.4 H (2.6-8.5) % Eos % (Auto) 1.7 (0-4.4) % Baso % (Auto) 1.0 (0.2-1.2) % Lymph # (Auto) 1.99 (0.9-3.2) K/mm3 [place] # (Auto) 0.9 H (0.1-0.6) K/mm3 Eos # (Auto) 0.2 (0-0.3) K/mm3 Baso # (Auto) 0.1 (0.0-0.1) K/mm3 Abs Immat Gran (auto) 0.04 H (0.00-0.031) K/mm3 Absolute Neuts (auto) 5.5 (1.3-6.7) K/mm3 Absolute Nucleated RBC 0.000 (0.0-0.012) K/mm3 Nucleated RBC % 0.0 (0.0-0.2) % Sodium 140 (137-145) mmol/L Potassium 3.8 (3.4-5.0) mmol/L Chloride 105 (98-107) mmol/L Carbon Dioxide 27 (22-30) mmol/L Anion Gap 8 (4-12) mmol/L BUN 13 (9-20) mg/dL Creatinine 1.09 (0.7-1.3) mg/dL Estim Creat Clear Calc 63 ml/min Estimated GFR > 60 (59 - ) Glucose 110 (65-110) mg/dL Lactic Acid 1.0 (0.7-2.0) mmol/L Calcium 9.1 (8.4-10.2) mg/dL Total Bilirubin 0.5 (0.2-1.3) mg/dL AST 23 (17-59) U/L ALT 20 (6-50) U/L Alkaline Phosphatase 125 (38-126) U/L Total Protein 7.0 (6.3-8.2) g/dL Albumin 4.1 (3.5-5.1) g/dL Urine Color Yellow (Yellow) Urine Appearance Turbid H (Clear) Urine pH 6.0 (5.0-9.0) Ur Specific [place] 1.013 (1.001-1.035) Urine Protein 1+ H (Negative) mg/dL Urine Glucose (UA) Negative (Negative) mg/dL Urine Ketones Negative (Negative) mg/dL Ur Blood (Man) 1+ H (Negative) Urine Nitrate Negative (Negative) Urine Bilirubin Negative (Negative) Urine Urobilinogen 1.0 (<2.0) mg/dL Leukocyte Esterase Rfl 3+ H (Negative) NURIA/UL Urine RBC 3-5 H (0-2) /hpf Urine WBC >100 H (0-3) /hpf Ur Squamous Epith Cells None seen (Few) /hpf Urine Bacteria 4+ /hpf Urine Casts 3-5 <Gabbie Candelaria PA-C - Last Filed: 04/07/24 00:28> Lab Results 04/06/24 04/06/24 Range/Units 18:55 23:49 WBC 8.7 (4.5-10.0) K/mm3 RBC 5.34 (4.6-6.20) M/mm3 Hgb 15.7 (14.0-18.0) g/dL Hct 47.9 (42.0-52.0) % MCV 89.7 (80-100) fl MCH 29.4 (26-34) pg MCHC 32.8 (32-36) g/dl RDW 12.3 (11.5-14.5) % Plt Count 246 (150-375) k/mm3 MPV 10.3 (7.4-10.4) fl Immature Gran % (Auto) 0.5 (0-0.5) % Neut % (Auto) 63.6 (45.5-73.1) % Lymph % (Auto) 22.8 (18.3-44.2) % [place] % (Auto) 10.4 H (2.6-8.5) % Eos % (Auto) 1.7 (0-4.4) % Baso % (Auto) 1.0 (0.2-1.2) % Lymph # (Auto) 1.99 (0.9-3.2) K/mm3 [place] # (Auto) 0.9 H (0.1-0.6) K/mm3 Eos # (Auto) 0.2 (0-0.3) K/mm3 Baso # (Auto) 0.1 (0.0-0.1) K/mm3 Abs Immat Gran (auto) 0.04 H (0.00-0.031) K/mm3 Absolute Neuts (auto) 5.5 (1.3-6.7) K/mm3 Absolute Nucleated RBC 0.000 (0.0-0.012) K/mm3 Nucleated RBC % 0.0 (0.0-0.2) % Sodium 140 (137-145) mmol/L Potassium 3.8 (3.4-5.0) mmol/L Chloride 105 (98-107) mmol/L Carbon Dioxide 27 (22-30) mmol/L Anion Gap 8 (4-12) mmol/L BUN 13 (9-20) mg/dL Creatinine 1.09 (0.7-1.3) mg/dL Estim Creat Clear Calc 63 ml/min Estimated GFR > 60 (59 - ) Glucose 110 (65-110) mg/dL Lactic Acid 1.0 (0.7-2.0) mmol/L Calcium 9.1 (8.4-10.2) mg/dL Total Bilirubin 0.5 (0.2-1.3) mg/dL AST 23 (17-59) U/L ALT 20 (6-50) U/L Alkaline Phosphatase 125 (38-126) U/L Total Protein 7.0 (6.3-8.2) g/dL Albumin 4.1 (3.5-5.1) g/dL Urine Color Yellow (Yellow) Urine Appearance Turbid H (Clear) Urine pH 6.0 (5.0-9.0) Ur Specific [place] 1.013 (1.001-1.035) Urine Protein 1+ H (Negative) mg/dL Urine Glucose (UA) Negative (Negative) mg/dL Urine Ketones Negative (Negative) mg/dL Ur Blood (Man) 1+ H (Negative) Urine Nitrate Negative (Negative) Urine Bilirubin Negative (Negative) Urine Urobilinogen 1.0 (<2.0) mg/dL Leukocyte Esterase Rfl 3+ H (Negative) NURIA/UL Urine RBC 3-5 H (0-2) /hpf Urine WBC >100 H (0-3) /hpf Ur Squamous Epith Cells None seen (Few) /hpf Urine Bacteria 4+ /hpf Urine Casts 3-5 <Tone Arroyo MD - Last Filed: 04/07/24 02:13> Discharge Plan Discharge Clinical Impression: Acute urinary retention, Acute UTI, Bladder diverticulum, Bladder calculi, Enlarged prostate, Renal cyst, Liver cyst <Davida Maldonado PA-C - Last Filed: 04/06/24 18:18> Patient Disposition: Home, Self-Care <Davida Maldonado PA-C - Last Filed: 04/06/24 18:18> Condition: Stable <VIVEK Conde Last Filed: 04/06/24 18:18> Instructions: Antibiotic Form, Urinary Retention in Men (ED), Enlarged Prostate (BPH) (ED), Urinary Tract Infection in Men (DC), Long Catheter Placement and Care (ED), How to Change a Catheter Drainage Bag (DC) <Davida Maldonado PA-C - Last Filed: 04/06/24 18:18> Additional Instructions: Your evaluated in the emergency department for urinary retention and burning with urination. You were found to be retaining urine which is likely secondary to prostate enlargement. Long catheter was placed. Your also found have a urinary tract infection. Stop taking the Bactrim and start taking the ciprofloxacin I have prescribed. Continue taking tamsulosin. The CT scan showed bladder diverticulum and 2 bladder calculi as discussed as well as prostatic enlargement. Incidentally there are also areas in your kidneys and liver that look like cyst. Please have outpatient ultrasound by her primary care provider for further evaluation of this. Return to the emergency department if you are not draining urine into your Long bag, her Long bag has clots or bright red blood in it, you develop a fever, abdominal pain, or other concerning symptoms. <Davida Maldonado PA-C - Last Filed: 04/06/24 18:18> Patient Language: Khmer <Davida Maldonado PA-C - Last Filed: 04/06/24 18:18> Prescriptions: New ciprofloxacin HCl 500 mg tablet 500 mg PO Q12H Qty: 14 0RF No Action sertraline 50 mg tablet 50 mg PO DAILY loratadine 10 mg tablet 10 mg PO DAILY rhwrweju-jqh-oyjfj-vit K-lycop 400-20-300 mcg tablet 1 tablet PO DAILY aspirin 81 mg tablet,delayed release (DR/EC) 81 mg PO DAILY atorvastatin 40 mg tablet 40 mg PO DAILY cefdinir 300 mg capsule 300 mg PO DAILY losartan 50 mg tablet 50 mg PO DAILY tamsulosin 0.4 mg Capsule 0.4 mg PO QAM 30 Days Qty: 30 1RF hydrochlorothiazide 12.5 mg tablet 12.5 mg PO DAILY Qty: 30 1RF <Davida Maldonado PA-C - Last Filed: 04/06/24 18:18> Follow-up/Referrals: Odilon,MD Annabelle [Primary Care Provider] - Beni Bowman MD [Physician] - <Davida Maldonado PA-C - Last Filed: 04/06/24 18:18>
[2024-04-06 19:04] LABS: Basophils Absolute Auto 0.1 K/mm3 (0.0-0.1); Eosinophils Absolute Auto 0.2 K/mm3 (0-0.3); Eosinophils Percent Auto 1.7 % (0-4.4); Hematocrit 47.9 % (42.0-52.0); Hemoglobin 15.7 g/dL (14.0-18.0); Immature Granulocyte Absolute 0.04 K/mm3 (0.00-0.031); Immature Granulocyte Percent A 0.5 % (0-0.5); Lymphocytes Absolute Auto 1.99 K/mm3 (0.9-3.2); Lymphocytes Percent Auto 22.8 % (18.3-44.2); Mean Corpuscular HGB Conc 32.8 g/dl (32-36); Mean Corpuscular Hemoglobin 29.4 pg (26-34); Mean Corpuscular Volume 89.7 fl (80-100); Mean Platelet Volume 10.3 fl (7.4-10.4); Monocytes Absolute Auto 0.9 K/mm3 (0.1-0.6); Monocytes Percent Auto 10.4 % (2.6-8.5); Neutrophils Absolute Auto 5.5 K/mm3 (1.3-6.7); Neutrophils Percent Auto 63.6 % (45.5-73.1); Platelet Count Result 246 k/mm3 (150-375); Red Blood Count 5.34 M/mm3 (4.6-6.20); Red Cell Distribution Width 12.3 % (11.5-14.5); White Blood Count 8.7 K/mm3 (4.5-10.0)
[2024-04-06 19:31] LABS: Alanine Aminotransferase 20 U/L (6-50); Albumin Level 4.1 g/dL (3.5-5.1); Alkaline Phosphatase 125 U/L (38-126); Anion Gap 8 mmol/L (4-12); Aspartate Amino Transferase 23 U/L (17-59); Bilirubin,Total 0.5 mg/dL (0.2-1.3); Blood Urea Nitrogen 13 mg/dL (9-20); Calcium 9.1 mg/dL (8.4-10.2); Carbon Dioxide 27 mmol/L (22-30); Chloride 105 mmol/L (98-107); Estimated CRCL calculation 63 ml/min; Estimated Glomerular Filt Rate > 60; Glucose 110 mg/dL (65-110); Potassium 3.8 mmol/L (3.4-5.0); Sodium 140 mmol/L (137-145)
[2024-04-06 19:51] LABS: Add Urine Microscopic? YES; Appearance Urine Turbid (Clear); Bacteria Urine 4+ /hpf; Bilirubin Urine Negative (Negative); Blood Urine 1+ (Negative); Color Urine Yellow (Yellow); Glucose Urine UA Negative (Negative); Ketones Urine Negative (Negative); Leukocyte Esterase Ur 3+ LEU/UL (Negative); Nitrate Urine Negative (Negative); Protein Urine 1+ mg/dL (Negative); Specific Grav Ur 1.013 (1.001-1.035); Squamous Epithelial Cell Urine None Seen /hpf (Few); WBC Urine >100 /hpf (0-3)
[2024-04-06 23:54] VITALS: BP 159/99; PULSE 85; RESP 16; O2SAT 97
[2024-04-07 00:50] VITALS: BP 149/89; PULSE 89; RESP 16; O2SAT 97
== END 2024-04-07 01:02 | disposition home or self-care (01) ==
PROVIDERS: Physician Assistant; Emergency Provider Physician Assistant; PCP Internal Medicine
DX: N39.0 Urinary tract infection, site not specified (principal); R33.9 Retention of urine, unspecified; N32.3 Diverticulum of bladder; N21.0 Calculus in bladder; N40.0 Benign prostatic hyperplasia without lower urinary tract symptoms; N28.1 Cyst of kidney, acquired; K76.89 Other specified diseases of liver; Z86.73 Personal history of transient ischemic attack (TIA), and cerebral infarction without residual deficits; G40.909 Epilepsy, unspecified, not intractable, without status epilepticus; E11.9 Type 2 diabetes mellitus without complications; J44.9 Chronic obstructive pulmonary disease, unspecified; M19.90 Unspecified osteoarthritis, unspecified site
CPT/HCPCS: 36415; 51702; 74177; 80053; 81001; 83605; 85025; 87040; 87086; 87186; 96365; 99284; J0696; Q9967

== ENCOUNTER 2024-06-05 00:59 | Day surgery (SDC) | payer BC, MEDICAID, SELFPAY ==
[2024-06-05] VITALS (7 sets, daily range): BP systolic 124–160; BP diastolic 66–92; PULSE 64–73; RESP 12–18; TEMP 36.3–36.6; O2SAT 95–100; BMI 29.8
--- OUTSIDE RECORDS SUMMARY | 2024-06-05 01:02 | XMS_ITS | Continuity of Care Document ---
Author Organization [facility] Address [address] [place] [address] Phone Care Team Providers Care Dealer Compliance Representative Name Role Phone Esparza OD, Chuck Unavailable Unavailable Procedures Procedure Date Eye Exam & Treatment Refraction Eye Exam & Treatment Refraction Advance Directives Directive Yes / No Effective Date File Name No Information Encounters Encounter Description Practice Location Reason(s) For Visit Diagnoses Date Provider Providers Copied on Encounter [facility], [address], [place], [place], [id number], [place] tel:[phone] [facility] [place] No Information [phone] Esparza OD Chuck. [address] , [address], [place], [address], [place]. tel:[phone] Family History Family Member Type Diagnosis Age [...]
--- OUTSIDE RECORDS SUMMARY | 2024-06-05 01:03 | XMS_ITS | Data Portability ---
Author Organization [place] - [facility] [employer], Main Office Address [address] [place] [address] Care Team Providers Care Post Anesthesia Nurse Name Role Phone ANNABELLE DONALD Primary Care Provider ANNABELLE DONALD Referring Provider ESTRADA BANEGAS Urologist RAGHAV BHATT Notcher STEVEN MUNIZ Orthopedic Surgeon [phone] ANGEL THOMPSON Web Operations Specialist KAMILAH ABBASI Strategy Manager JOSE CLOUD Pole Peeling Machine Operator Helper [phone] ORION WEBSTER Hematology/Oncology Assessment Encounter Date Assessment Date Assessment LastModified by Organization Details LastModified Time 04/14/2024 04/14/2024 12/18/2022: PSA 8.4 TSH 0.374L VIT D 22.9 NA 135 Chol 212, LDL 146 06/16/2023: Mauricio ER Gluc 124 NT pro BNP 201 WBC 10.3 07/15/2023: A1C 5.6 Urine micro alb 56.4 Gluc 103, ALP 140 H/H 17.350.3 08/15/2023: Dr Calero CBC 12/19/2023: A1C 5.3 [email or web address] Not available 04/14/2024 14:50:28 04/20/2024 04/20/2024 Assessment: Severe OSAHS, AHI = 37 PLMD Plan: The following were reviewed and explained to the patient: [facility] split night sleep study 02/25/20 AHI = 31, PLMI = 30, Respironics medium DreamWear full face mask @ CPAP 13 cmH2O [facility] diagnostic sleep study 09/21/21 sleep onset = 83.5 minutes, REM onset = 284 minutes, AHI = 19, REM AHI = 39, PLMI = 38 [facility] home sleep study 01/08/23 AHI = 33, supine AHI = 6 [facility] diagnostic sleep study 04/14/24 sleep onset = 24 minutes, REM onset = 102 minutes, AHI = 37, supine AHI = 52, REM AHI = 58, PLMI = 8 Ferritin 06/21/21 62 ng/mL Ferritin 01/21/24 107 mg/mL Elevation in periodic limb movement index may be contributed by loratadine and sertraline. Non-pharmacologic therapy options for periodic limb movement disorder include avoidance of aggravating drugs and substances, mental alerting activities, short daily hemodialysis for patients in renal failure, exercise, leg massage, stretching calf muscles, use of a weighted blanket and applied heat. Patient will cut down on caffeine intake. BUN, Creatinine, Vitamin E, Vitamin B12, RBC folate, Iron, TIBC, Ferritin, ESR, Magnesium, Hgb and Hct levels are within normal limits. We will hold off on dopaminergic therapy for now. General information on sleep disorder breathing, evaluation of sleep disordered breathing, treatment with PAP therapy, and living with PAP therapy were covered. We discussed with the patient the impact of weight on: Sleep disordered breathing Hypertension Hyperlipidemia LUIS ANGEL Low back pain We discussed with the patient the benefit of PAP therapy on: Sleep disordered breathing Seizures Headaches Mood disorders Rhinosinusitis Hypertension LUIS ANGEL PAP titration study ordered. Educated the patient on sleep hygiene measures. Relaxing rituals to rest easy, understanding foods with positive and negative impact on sleep, creating a peaceful sleep environment, timing of exercise, using herbal sleep aids, and practicing sleep-friendly meditation were covered. To determine how much sleep is needed, the patient will assess where (s)he falls on the spectrum, examine what lifestyle factors such as work schedules and stress are affecting the quality and quantity of sleep. In general, adults need 7-9 hours of sleep. Educated the patient regarding foods that promote sleep. These include but are not limited to cherries, bananas, toast, oatmeal, and warm milk. Educated the patient regarding foods and drinks to avoid before bedtime. These include but are not limited to aged cheese, chocolate, spicy foods, tomato-based sauces, soy, ginseng tea and processed meat. Advocated influenza vaccination annually and pneumonia vaccination PONCHO. Advocated weight loss through diet and exercise. Patient's ideal body weight according to height and gender is up to 175 lbs. Encouraged patient to adjust caloric intake to maintain/achieve ideal body weight, emphasizing on fruits, vegetables, whole grains, and fat-free or low-fat products. These include lean meats, poultry, fish, beans, eggs, and nuts and foods that are low in saturated fats, trans-fats, cholesterol, salt (sodium), and glycemic index. Stressed the importance of regular exercise up to the patient's capacity limits. In this case, we [email or web address] min daily walking, 2 days a week of resistance training. Patient to monitor BP daily and bring records to PCP for further management. Follow-up: 1 week after titration sleep study Not available 04/20/2024 09:33:14 06/02/2024 06/02/2024 Assessment: Rhinitis Severe OSAHS, AHI = 37 PLMD Iron deficiency, resolved Plan: The following were reviewed and explained to the patient: [facility] split night sleep study 02/25/20 AHI = 31, PLMI = 30, Respironics medium DreamWear full face mask @ CPAP 13 cmH2O [facility] diagnostic sleep study 09/21/21 sleep onset = 83.5 minutes, REM onset = 284 minutes, AHI = 19, REM AHI = 39, PLMI = 38 [facility] home sleep study 01/08/23 AHI = 33, supine AHI = 6 [facility] diagnostic sleep study 04/14/24 sleep onset = 24 minutes, REM onset = 102 minutes, AHI = 37, supine AHI = 52, REM AHI = 58, PLMI = 8 [facility] titration sleep study 05/27/24 sleep onset = 36.5 minutes, REM onset = 158.5 minutes, [employer] large Mely full face mask @ 10-20 cmH2O, PLMI = 57 Ferritin 06/21/21 62 ng/mL Ferritin 01/21/24 107 mg/mL Elevation in periodic limb movement index may be contributed by loratadine and sertraline. Non-pharmacologic therapy options for periodic limb movement disorder include avoidance of aggravating drugs and substances, mental alerting activities, short daily hemodialysis for patients in renal failure, exercise, leg massage, stretching calf muscles, use of a weighted blanket and applied heat. Patient will cut down on caffeine intake. BUN, Creatinine, Vitamin E, Vitamin B12, RBC folate, Iron, TIBC, Ferritin, ESR, Magnesium, Hgb and Hct levels are within normal limits. We will hold off on dopaminergic therapy for now. Educated the patient on problems and solutions associated with positive airway pressure (PAP) use. Difficulty tolerating pressure, mask leaks, intolerance of interface, nasal congestion, claustrophobic response, dry mouth, and unintentional mask removal during sleep were covered. Patient experiences nasal congestion. Patient will use nasal saline spray before starting PAP, use heated PAP humidifier, clean/air dry humidifier reservoir daily, use nasal steroid spray, use ipratropium bromide nasal spray if rhinitis/rhinorrhe a is present or obtain an oronasal/oral interface. Dry mouth is a normal occurrence for people who just start out on PAP therapy because they are not used to air blowing in to the throat to hold open. Dry mouth is exacerbated for people who wear nasal PAP mask and whose jaw drops open during sleep. Not only does this create a much less efficient therapy because of leakage, it also causes dry mouth. There are a couple solutions to help prevent this type of problem. A simple solution would be to wear a chinstrap which essentially holds the jaw in place. A second solution would be a switch to a full face mask which covers both the nose and mouth. Although this is another easy solution, using a full face mask for some could seem claustrophobic or confining. There is no silver bullet solution as no single mask is right for everybody. Sometimes it takes a bit of experimentation to find a PAP mask which best meets the patient's needs as well as fits comfortably. Another tactic is to use a humidifier on your PAP machine. Most new PAP machines have integrated humidifiers. Humidification is patel when dealing with symptoms of dry mouth because the humidifier can supply both warm and room temperate air. Even a small amount of humidity in the airflow will help nasal passages to stay hydrated. If a person is using both a full face mask and a PAP machine with a heated humidifier and is still experiencing dry mouth, an ill-fitted PAP mask might be causing the problem. Leakage can be caused by a mask that is to large or small, the wrong style mask, the cushion is degraded or simply because the mask's straps aren't adjusted correctly. If leakage occurs, dry air from the room can leak in while humidification escapes. The result is reduced humidification within the circuit and resulting in dry throat and mouth. Finally, beyond factors involving the PAP machine and mask, dry mouth can also be caused or worsened by dehydration. The general recommendation to during eight 8 oz. glasses of water a day might be too little for many people. When people drink large amounts of coffee or other caffeine beverages, or sweat a lot during the day, making sure to rehydrate is an important part of PAP therapy. ResMed Air Sense 11 auto set unit with heated humidifier, supplies and Backtrace I/O large Mely full face mask @ 10-20 cmH2O ordered. Further titration will be based on clinical response. Provided the patient with a list of local home care stores where positive airway pressure (PAP) units, accoutrement, and services are available. Home care store selection is based on patient's insurance carrier. Patient will setup an appointment with [facility] for supplies and pressure adjustments. A major predictor of success with use of PAP is follow-up with both the respiratory supplier and the treating physician. The respiratory supplier optimally will follow-up within two weeks after starting use while the treating physician optimally will follow-up within 90 days after starting therapy to assess adherence and effectiveness of treatment. The download results can show the treating physician information about adherence to treatment, residual AHI while on treatment and presence of large mask leakage. This information is especially helpful if the patient has residual sleepiness despite treatment. General information on sleep disorder breathing, evaluation of sleep disordered breathing, treatment with PAP therapy, and living with PAP therapy were covered. We discussed with the patient the impact of weight on: Sleep disordered breathing Hypertension Hyperlipidemia LUIS ANGEL Low back pain We discussed with the patient the benefit of PAP therapy on: Sleep disordered breathing Seizures Headaches Mood disorders Rhinosinusitis Hypertension LUIS ANGEL PAP titration study ordered. Educated the patient on sleep hygiene measures. Relaxing rituals to rest easy, understanding foods with positive and negative impact on sleep, creating a peaceful sleep environment, timing of exercise, using herbal sleep aids, and practicing sleep-friendly meditation were covered. To determine how much sleep is needed, the patient will assess where (s)he falls on the spectrum, examine what lifestyle factors such as work schedules and stress are affecting the quality and quantity of sleep. In general, adults need 7-9 hours of sleep. Educated the patient regarding foods that promote sleep. These include but are not limited to cherries, bananas, toast, oatmeal, and warm milk. Educated the patient regarding foods and drinks to avoid before bedtime. These include but are not limited to aged cheese, chocolate, spicy foods, tomato-based sauces, soy, ginseng tea and processed meat. Advocated influenza vaccination annually and pneumonia vaccination PONCHO. Advocated weight loss through diet and exercise. Patient's ideal body weight according to height and gender is up to 175 lbs. Encouraged patient to adjust caloric intake to maintain/achieve ideal body weight, emphasizing on fruits, vegetables, whole grains, and fat-free or low-fat products. These include lean meats, poultry, fish, beans, eggs, and nuts and foods that are low in saturated fats, trans-fats, cholesterol, salt (sodium), and glycemic index. Stressed the importance of regular exercise up to the patient's capacity limits. In this case, we [id number] min daily walking, 2 days a week of resistance training. Patient to monitor BP daily and bring records to PCP for further management. Follow-up: 3 months, August 2024 Not available 06/02/2024 13:07:32 06/04/2024 06/04/2024 12/18/2022: PSA 8.4 TSH 0.374L VIT D 22.9 NA 135 Chol 212, LDL 146 06/16/2023: Mauricio ER Gluc 124 NT pro BNP 201 WBC 10.3 07/15/2023: A1C 5.6 Urine micro alb 56.4 Gluc 103, ALP 140 H/H 17.350.3 08/15/2023: Dr Calero CBC 12/19/2023: A1C 5.3 05/02/2024: COVID 19 05/20/2024: A1C 5.7 Urine micro alb 87.5 TSH 0.381L, FT4 1.84 Chol 203, LDL 126 [email or web address] Not available 06/04/2024 11:33:36 Plan of Treatment Reminders Order Date Submit Date Provider Last Modified By Organization Details Last Modified Time Details Appointments Any 15 2024 10:00A Iraida Bhatt MD Not available Not available Not available Any 15 2024 11:00A Iraida choudhary MD Not available Not available Not available Lab microalbu min, urine [address], [address] [place], [address], 06/04/2024 14:29:27 glycohemo globin, total, blood [address], [address] [place], [address], 06/04/2024 14:29:28 CMP, serum or plasma [address], [address] [place], [address], 06/04/2024 14:29:26 CBC w/ auto diff [address], [address] [place], [address], 06/04/2024 14:29:27 lipid panel, serum [address], [address] [place], [address], 06/04/2024 14:29:27 TSH, serum or plasma [address], [address] [place], [address], 06/04/2024 14:29:27 T4, free, serum [address], [address] [place], [address], 06/04/2024 14:29:27 microalbu min, urine 2024 025 TENA [facility], [address] [place], [address], 05/20/2024 15:11:25 glycohemo globin, total, blood 2024 025 [facility], [address] [place], [address], 05/20/2024 22:45:20 CMP, serum or plasma 2024 025 [facility], [address] [place], [address], 05/20/2024 15:07:17 CBC w/ auto diff 2024 025 [facility], [address] [place], [address], 05/20/2024 14:17:24 lipid panel, serum 2024 025 [facility], [address] [place], [address], 05/20/2024 15:08:53 TSH, serum or plasma 2024 025 [facility], [address] [place], [address], 05/20/2024 15:10:45 T4, free, serum 2024 025 [facility], [address] [place], [address], 05/20/2024 15:07:49 Referral nephrolog ist referral 2024 025 [email or web address] Candelario Mosley MD, [address] [place], [address], 06/04/2024 11:42:41 rheumatol ogist referral - Please call patient to schedule. 2024 025 [email or web address] José Miguel Piedra MD, [address] [facility], [address] [place], [address], 06/04/2024 11:42:41 urologist referral - Please call patient to schedule. 2024 025 [email or web address] Arvind Kramer MD, [address] [facility], [address], [place], [address], 06/04/2024 11:42:42 podiatris t referral 2024 025 [email or web address] Angel Thompson DPM, [address] [facility], [address], [place], [address], 06/04/2024 11:42:40 cardiolog ist referral 2024 025 [email or web address] Kamilah Abbasi MD, [address] [facility], [address], [place], [address], 06/04/2024 11:42:41 rheumatol ogist referral - Please call patient to schedule an appointme nt. Thank you. 2024 025 GRISEL Piedra MD, [address] [facility], [address] [place], [address], 06/04/2024 11:50:42 urologist referral - Please call patient to schedule. 2024 025 Delvis Nevarez MD, [address] [facility] [address], [place], [address], 04/16/2024 08:44:34 pulmonolo gist referral - Please call patient to schedule. 2024 025 [email or web address] Raghav Bhatt MD, [address] [facility], [place], [address], 04/16/2024 08:44:35 podiatris t referral 2024 025 [email or web address] Angel Thompson DPM, [address] [facility], [address], [place], [address], 04/16/2024 08:44:36 cardiolog ist referral 2024 025 Kamilah Abbasi MD, [address] [facility], [address], [place], [address], 04/16/2024 08:44:35 Procedures aletai ethan grace (PROC) - removed 16 fr long and replaced it with a 16 fr long catheter using sterile technique 2024 025 Not available 05/27/2024 10:52:20 Surgeries None recorded. Imaging LDCT, chest, for lung cancer screening - Please call patient to schedule. [address] ([facility]), [address] [place], [address], 06/04/2024 12:16:20 US, liver - Please call patient to schedule. [address] ([facility]), [address] [place], [address], 06/04/2024 12:16:40 polysomno gram, titration study - Please call patient to schedule. 2024 025 [facility], [address] [place], [address], 06/01/2024 14:51:39 LDCT, chest, for lung cancer screening - Please call patient to schedule. 2024 025 [facility] ([facility]), [address] [place], [address], 05/13/2024 11:45:32 US, liver - Please call patient to schedule. 2024 025 [facility] ([facility]), [address] [place], [address], 05/13/2024 11:45:32 Medication Orders fluticaso ne propionat e 50 mcg/actua tion nasal spray,damaris pension 2024 025 [id number], [address], [place], [place], [id number], 06/04/2024 11:34:56 Zyrtec 10 mg tablet 2024 025 [facility] #[id number], [address], [place], [place], [id number], 06/04/2024 11:34:57 sertralin e 50 mg tablet 2024 025 [facility] #12736, [address], [place], [place], [id number], 06/04/2024 11:34:57 ropinirol e 0.5 mg tablet 2024 025 [facility]54427, [address], [place], [place], [id number], 06/04/2024 11:34:56 metformin ER 500 mg tablet,ex tended release 24 hr 2024 025 [facility] #33656, [address], [place], [place], [id number], 06/04/2024 11:34:58 Patient TargetsNo targets recorded. Patient Instructions Encounter Date Encounter Id Patient Instructions Last Modified By Organization Details Last Modified Time 04/20/2024 [id number] it appears the patient came in for a catheter change [email or web address] Not available 05/01/2024 12:35:10 Reason for Referral Urologist Referral for Prost ate specific antigen above reference range Please call patient to schedule. Referring Physician: Annabelle Donald, Internal Medicine, Encounter Date: 04/14/2024 Strategy Manager Referral for Es sential hypertension Referring Physician: Annabelle Donald, Internal Medicine, Encounter Date: 04/14/2024 Notcher Referral for O bstructive sleep apnea syndrome Please call patient to schedule. Referring Physician: Annabelle Donald Internal Medicine, Encounter Date: 04/14/2024 Web Operations Specialist Referral for Type 2 diabetes mellitus without complication Referring Physician: Annabelle Donald Internal Medicine, Encounter Date: 04/14/2024 Deck Engineer Referral for Vasculitis Please call patient to schedule an appointment. Thank you. Referring Physician: Annabelle Donald Internal Medicine, Encounter Date: 04/14/2024 Urologist Referral for Prost ate specific antigen above reference range Please call patient to schedule. Referring Physician: Annabelle Donald Internal Medicine, Encounter Date: 06/04/2024 Strategy Manager Referral for Es sential hypertension Referring Physician: Annabelle Donald Internal Medicine, Encounter Date: 06/04/2024 Web Operations Specialist Referral for Type 2 diabetes mellitus without complication Referring Physician: Annabelle Donald Internal Medicine, Encounter Date: 06/04/2024 Deck Engineer Referral for Vasculitis Please call patient to schedule. Referring Physician: Annabelle Donald Internal Medicine, Encounter Date: 06/04/2024 Strapper And Buffer Referral for Pr oteinuria Referring Physician: Annabelle Donald Internal Medicine, Encounter Date: 06/04/2024 Results Created Date Observation Date Name Description Value Unit Range Abnormal Flag Note LastModifiedBy Organization Detail LastModifiedTime 04/07/1904/06/2024 CT, abdom en + pelvi s, w/ contr ast No observ ation record ed. [address], [place], [address], 04/15/2024 14:49:44 04/16/1904/14/2024 polys omnog luis alberto, diagn ostic , 6 yrs or older No observ ation record ed. [address] [facility] [place] [address] [place], [address], 05/28/2024 17:29:40 06/02/19 25 1952 polys omnog luis alberto, titra tion study No observ ation record ed. [facility] [place] [address] [place], [address], 06/01/2024 14:51:39 Result Notes None recorded. Problems Name Problem SNOMED Code Status Onset Date Resolution Date Notes Provider Name and Address Organization Details Recorded Time Acquired trigger finger 8674905 Active Not Available [facility] 3 02:51:11 Radial styloid tenosynov itis 55955351 Active Not Available [facility] 3 02:51:11 Sinusitis 17103830 Completed Not Available [facility] 3 02:51:12 Inguinal hernia 247523702 Active Not Available [facility] 3 02:51:12 Hyperlipi demia 44896895 Active 2021 Not Available [facility] 3 02:51:12 Diastasis recti 77337618 Active Not Available [facility] 3 02:51:12 Essential hypertens ion 89767252 Active 2022 Annabelle corrales MD [address], [address] , [facility] [employer] [facility] 3 16:28:43 Restless legs 04147769 Active 2022 Annabelle corrales MD [address] [address], [place], [address] , [facility] 3 16:28:56 Seizure disorder 942632328 Active 2022 Annabelle corrales MD [address] [address], [place], [address] , [facility] [employer] [facility] 3 16:29:02 Gastroeso phageal reflux disease without esophagit is 632185888 Active 2022 Annabelle corrales MD [address], [place], [address] , [facility] 3 16:29:12 Obstructi ve sleep apnea syndrome 92964134 Active 2022 Annabelle corrales MD [address], [address], [place], [address] , [facility] 3 16:29:18 Transient cerebral ischemia 987137496 Active 2022 Annabelle corrales MD [address], [address], [place], [address] , [facility] 3 16:29:54 Periphera l arterial occlusive disease 719719111 Active 2023 Angel Thompson DPM [address], [address], [place], [address] , [facility] 4 12:16:14 Diabetes mellitus 16883256 Active 2023 Angel Thompson DPM [address], [address], [place], [address] , [facility] 4 12:16:55 Ex-smoker 4357498 Active 2023 Angel Thompson DPM [address], [address], [place], [address] , [facility] 4 14:07:35 Closed fracture of distal end of left radius 13464794965 174356 Active 2023 Steven Muniz MD [address], [address], [place], [address] , [facility] 4 16:22:31 Gout 05589714 Active 2023 Annabelle corrales MD [address], [address], [place], [address] , [facility] 4 17:51:19 Moderate recurrent major depressio n 60716354 Active 2023 Annabelle corrales MD [address], [address], [place], [address] , [place] [facility] 4 17:57:49 Type 2 diabetes mellitus without complicat ion 333556704 Active 2023 Annabelle corrales MD [address], [address], [place], [address] , [place] [facility] 4 16:57:30 Iron deficienc y 15851566 Active 2023 Raghav Bhatt MD [address], [address], [place], [address] , [place] [facility] 4 16:35:20 Benign prostatic hyperplas ia with outflow obstructi on 122594854 Active 2024 Estrada Banegas MD [address], [address], [place], [address] , [place] [facility] 5 10:57:59 Liver cyst 48006720 Active 2024 Annabelle corrales MD [address], [address], [place], [address] , [place] [facility] 5 14:55:18 Periodic limb movement disorder 366761758 Active 2024 Raghav Bhatt MD [address], [address], [place], [address] , [place] [facility] 5 09:33:04 Retention of urine 288512239 Active 2024 RIKY Noyola null, [place] [facility] 5 09:04:59 Cough 71200893 Active 2024 Rosa Maria Okeefe MA null, [place] [facility] 5 10:42:03 Nasal congestio n 98150007 Active 2024 RIKY Barber null, [place] [facility] 5 14:01:26 Respirato ry tract congestio n and cough 926719365 Active 2024 Pinky Kings, RMA null, [place] [facility] 5 14:02:08 Vasculiti s 87952267 Active 2024 Annabelle corrales MD [address], [address], [place], [address] , [place] [facility] 5 15:18:24 Chronic obstructi ve pulmonary disease 53796648 Active 2024 Annabelle corrales MD [address], [address], [place], [address] , [place] [facility] 5 11:25:13 Prostate specific antigen above reference range 451223478 Active 2024 Annabelle corrales MD [address], [address], [place], [address] , [place] [facility] 5 11:28:02 Allergic rhinitis 14412346 Active 2024 Annabelle corrales MD [address], [address], [place], [address] , [place] [facility] 5 11:28:42 Low back pain 120094454 Active 2024 Annabelle corrales MD [address], [address], [place], [address] , [place] [facility] 5 11:33:13 Proteinur ia 31830443 Active 2024 Annabelle corrales MD [address], [address], [place], [address] , [place] [facility] 5 11:33:19 Notes:Medical History: TIA G rand mal seizures Migraine headaches Depression Bilateral tinnitus Rhinosinusitis with postnasal drip 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 Procedures Surgical History Date Name Laterality Status Provider Name and Address Organization Details Recorded Time 4 Hand completed RIKY Barber [employer] 07/23/2023 15:48:55 4 Callus Debridement , One completed Angel Thompson DPM [address] [facility], [address], [place], [address], [employer] 04/29/2023 14:06:38 5 Prp i/stanford init reduc >5 yr completed Not Available [facility] 05/23/2022 02:44:34 Hernia Repair completed Not Available [facility] 05/23/2022 02:44:34 Hernia Repair completed Not Available [facility] 05/23/2022 02:44:34 Imaging Results Imaging Date Name Status LastModified by Organiz ation Details LastModified Time 04/06/2024 CT, abdomen + pelvis, w/ contrast active [address], [place], [address], 04/15/2024 14:49:44 04/14/2024 polysomnogram, diagnostic, 6 yrs or older completed [address] [facility] [address] [place], [address], 05/28/2024 17:29:40 1950 polysomnogram, titration study completed [facility] [address] [place], [address], 06/01/2024 14:51:39 Procedure Notes None recorded. Medical Equipment None Reported. Allergies No known drug allergies Medications Name Sig Start Date Stop Date Status Note LastModified by Organization Details LastModified Time losartan 50 mg tablet TAKE 1 TABLET BY MOUTH EVERY DAY active Not Available Not Available No t Available cyclobenz aprine 10 mg tablet TK 1 T PO QD HS 02/04 completed Not Available Not Available Not Available atorvasta tin 40 mg tablet TAKE 1 TABLET BY MOUTH EVERY DAY active Not Available Not Available No t Available metformin 500 mg tablet TAKE 1 TABLET BY MOUTH TWICE DAILY 07/01 completed Not Available Not Available Not Available atorvasta tin 80 mg tablet TAKE 1 TABLET BY MOUTH EVERY DAY 06/12 completed Not Available Not Available Not Available prednison e 10 mg tablet Take by oral route. 10/10 completed Not Available Not Available Not Available atorvasta tin 20 mg tablet Take 1 tablet every day by oral route. 02/07 completed Not Available Not Available Not Available tizanidin e 2 mg tablet TK 1 OR 2 PRN TID 06/05 completed Not Available Not Available Not Available albuterol sulfate 2.5 mg/3 mL (0.083 %) solution for nebulizat ion Inhale 3 mL 3 times a day by nebuliza tion route. 05/08 completed Not Available Not Available Not Available Vitamin C 500 mg tablet Take 1 tablet every day by oral route. 06/12 completed Not Available Not Available Not Available trazodone 50 mg tablet TAKE 1 TABLET BY MOUTH EVERY DAY NEEDED 06/12 completed Not Available Not Available Not Available azithromy cristobal 250 mg tablet TAKE 2 TABLETS BY MOUTH FIRST DAY THEN TAKE 1 TABLET BY MOUTH EVERY DAY 05/28 completed Not Available Not Available Not Available ibuprofen 800 mg tablet TK 1 T PO TID 06/05 completed Not Available Not Available Not Available ofloxacin 0.3 % eye drops INSTILL 2 DROPS IN LEFT EYE 4 TIMES A DAY FOR 5 DAYS 12/16 completed Not Available Not Available Not Available sulfameth oxazole 400 mg-trimet hoprim 80 mg tablet TK 1T PO QD FOR 21 DAYS 12/06 completed Not Available Not Available Not Available hydrocodo ne 5 mg-acetam inophen 325 mg tablet TAKE 1 TABLET BY MOUTH EVERY 6 HOURS NEEDED FOR BREAKTHR OUGH PAIN 12/16 completed Not Available Not Available Not Available meloxicam 15 mg tablet Take 1 tablet every day by oral route as needed. 12/06 completed Not Available Not Available Not Available prednison e 20 mg tablet TK 3T DAILY FOR 7 DAYS, THEN TAKE 2T DAILY FOR 7 DAYS, THEN 1T DAILY FOR 7 DAYS, AND 1/2 (HALF) TABLET DAILY FOR 7 DAYS THEN STOP 12/06 completed Not Available Not Available Not Available Mobic 7.5 mg tablet Take 1 tablet twice a day by oral route for 15 days. active Not Available Not Available No t Available Zyrtec 10 mg tablet Take 1 tablet every day by oral route as needed for 90 days. 2024 active Not Available Not Available Not Avai lable metronida zole 500 mg tablet TAKE 1 TABLET BY MOUTH EVERY 8 HOURS 12/06 completed Not Available Not Available Not Available acetamino phen 300 mg-codein e 30 mg tablet TAKE ONE TABLET BY MOUTH THREE TIMES A DAY NEEDED 01/27 completed Not Available Not Available Not Available clopidogr el 75 mg tablet Take 1 tablet every day by oral route for 19 days. 06/12 completed Not Available Not Available Not Available valproic acid 250 mg capsule TK 2 CS PO QAM AND 2 CS PO AT NOON AND 5PM THEN 2 CS PO QHS 06/12 completed Not Available Not Available Not Available ciproflox acin 500 mg tablet TAKE 1 TABLET BY MOUTH EVERY 12 HOURS 05/28 completed Not Available Not Available Not Available sulfameth oxazole 800 mg-trimet hoprim 160 mg tablet TAKE 1 TABLET BY MOUTH EVERY 12 HOURS FOR 15 DAYS 04/14 completed Not Available Not Available Not Available aspirin 81 mg tablet,de layed release Take 1 tablet every day by oral route. active Not Available Not Available No t Available doxycycli ne monohydra te 100 mg tablet TAKE 1 TABLET BY MOUTH TWICE DAILY 12/16 completed Not Available Not Available Not Available tramadol 50 mg tablet TAKE 1 TABLET BY MOUTH TWICE DAILY NEEDED FOR 10 DAYS 06/19 completed Not Available Not Available Not Available triamcino lone acetonide 0.1 % topical cream APPLY LIGHTLY TO TO THE AFFECTED AREA DAILY 12/06 completed Not Available Not Available Not Available quinapril 40 mg tablet TK 1 T PO D active Not Available Not Available No t Available Kenalog 40 mg/mL suspensio n for injection 05/08 completed Not Available Not Available Not Available nortripty line 25 mg capsule TK ONE C PO QD active Not Available Not Available No t Available oxycodone -acetamin ophen 5 mg-325 mg tablet 02/04 completed Not Available Not Available Not Available quinapril 10 mg tablet TK 1 T PO QD active Not Available Not Available No t Available prednisol one acetate 1 % eye drops,damaris penramezon SHAKE LQ AND INT 1 GTT IN OS QID UTD active Not Available Not Available No t Available lorazepam 0.5 mg tablet TAKE 1 TABLET BY MOUTH TWICE DAILY NEEDED 06/12 completed Not Available Not Available Not Available tamsulosi n 0.4 mg capsule TAKE 1 CAPSULE BY MOUTH TWICE DAILY active Not Available Not Available No t Available dicyclomi ne 20 mg tablet TAKE 1 TABLET BY MOUTH THREE TIMES DAILY NEEDED 12/06 completed Not Available Not Available Not Available meclizine 25 mg tablet Take 1 tablet twice a day by oral route as needed for 15 days. active Not Available Not Available No t Available phenazopy ridine 100 mg tablet TAKE 2 TABLETS BY MOUTH THREE TIMES DAILY FOR 2 DAYS 04/14 completed Not Available Not Available Not Available Nicoderm CQ 14 mg/24 hr daily transderm al patch Apply 1 patch every day by transder mal route. 08/13 completed Not Available Not Available Not Available benzonata te 100 mg capsule TK 1 C PO TID FOR 10 DAYS active Not Available Not Available No t Available pantopraz ole 40 mg tablet,de layed release Take 1 tablet every day by oral route. 12/06 completed Not Available Not Available Not Available ferrous sulfate 325 mg (65 mg iron) tablet Take 1 tablet every day by oral route. 06/12 completed Not Available Not Available Not Available esomepraz ole magnesium 40 mg capsule,d elayed release TAKE 1 CAPSULE BY MOUTH EVERY DAY NEEDED 12/06 completed Not Available Not Available Not Available neomycin- polymyxin -dexameth 3.5 mg/mL-10, 000 unit/mL-0 .1% eye drops INSTILL 1 DROP IN THE LEFT EYE QID FOR 7 DAYS 07/25 completed Not Available Not Available Not Available triamcino lone acetonide 0.1 % topical ointment APPLY A THIN LAYER TO THE AFFECTED AREA(S) BY TOPICAL ROUTE 2 TIMES PER DAY active Not Available Not Available No t Available ropinirol e 0.5 mg tablet TAKE 1 TABLET BY MOUTH EVERY NIGHT AT BEDTIME 03/13/ 2025 active Not Available Not Available Not Avai lable polymyxin B sulfate 10,000 unit-trim ethoprim 1 mg/mL eye drops INSTILL 1 DROP IN LEFT EYE FOUR TIMES DAILY. MAY USE EVERY 4 HOURS WHILE AWAKE 03/22 completed Not Available Not Available Not Available hydrochlo rothiazid e 12.5 mg capsule Take 1 capsule every day by oral route. 07/25 completed Not Available Not Available Not Available quinapril 5 mg tablet TAKE 1 TABLET BY MOUTH EVERY DAY 05/08 completed Not Available Not Available Not Available etodolac 400 mg tablet Take 1 tablet twice a day by oral route. 01/25 completed Not Available Not Available Not Available monteluka st 10 mg tablet Take 1 tablet every day by oral route. 02/04 completed Not Available Not Available Not Available ammonium lactate 12 % topical cream USE 2 APPLICAT IONS TO THE AFFECTED AREA EVERY DAY NEEDED 07/20 completed Not Available Not Available Not Available bisacodyl 5 mg tablet,de layed release TK 6 TS PO AT 8AM ON 10/15/1912/07 completed Not Available Not Available Not Available quinapril 20 mg tablet Take 1 tablet every day by oral route. 10/18 completed Not Available Not Available Not Available hydrochlo rothiazid e 25 mg tablet TAKE 1 TABLET BY MOUTH DAILY 06/12 completed Not Available Not Available Not Available mupirocin 2 % topical ointment 07/25 completed Not Available Not Available Not Available diclofena c sodium 50 mg tablet,de layed release TK 1 T PO BID X 30 DAYS 01/27 completed Not Available Not Available Not Available metoprolo l succinate ER 25 mg tablet,ex tended release 24 hr TAKE 1 TABLET BY MOUTH DAILY active Not Available Not Available No t Available ibuprofen 600 mg tablet TK 1 T PO Q 6 H WITH FOOD PRN P 01/25 completed Not Available Not Available Not Available levofloxa cristobal 500 mg tablet TAKE 1 TABLET BY MOUTH EVERY DAY 09/01 completed Not Available Not Available Not Available levofloxa cristobal 750 mg tablet Take 1 tablet every day by oral route for 7 days. active Not Available Not Available No t Available methylpre dnisolone 4 mg tablets in a dose pack FOLLOW PACKAGE DIRECTIO NS 12/06 completed Not Available Not Available Not Available albuterol sulfate HFA 90 mcg/actua tion aerosol inhaler INL 2 PFS PO Q 4 TO 6 H PRN 07/01 completed Not Available Not Available Not Available Lomotil 2.5 mg-0.025 mg tablet Take 1 tablet as needed by oral route. active Not Available Not Available No t Available ondansetr on 4 mg disintegr ating tablet 07/25 completed Not Available Not Available Not Available cefdinir 300 mg capsule TAKE 1 CAPSULE BY MOUTH TWICE DAILY FOR 7 DAYS 04/14 completed Not Available Not Available Not Available fluticaso ne propionat e 50 mcg/actua tion nasal spray,damaris pension SHAKE LIQUID AND USE 1 SPRAY IN EACH NOSTRIL EVERY DAY 2024 active Not Available Not Available Not Avai lable metformin ER 500 mg tablet,ex tended release 24 hr Take 1 tablet every day by oral route for 90 days. 2024 active Not Available Not Available Not Avai lable sertralin e 50 mg tablet TAKE 1 TABLET BY MOUTH DAILY. NO ALCOHOL, DRIVING, OR TAKING OTHER SEDATING MEDICATI ONS 2024 active Not Available Not Available Not Avai lable doxycycli ne hyclate 100 mg tablet 06/05 completed Not Available Not Available Not Available loratadin e 10 mg tablet TAKE 1 TABLET BY MOUTH EVERY DAY NEEDED 06/12 completed Not Available Not Available Not Available naproxen 500 mg tablet TAKE 1 TABLET BY MOUTH TWICE DAILY WITH FOOD 12/16 completed Not Available Not Available Not Available amoxicill in 875 mg-potass ium clavulana te 125 mg tablet TAKE 1 TABLET BY MOUTH TWICE DAILY WITH FOOD FOR 7 DAYS 07/01 completed Not Available Not Available Not Available amoxicill in 500 mg-potass ium clavulana te 125 mg tablet TAKE 1 TABLET BY MOUTH TWICE DAILY active Not Available Not Available No t Available cyclobenz aprine 5 mg tablet Take 1 tablet 3 times a day by oral route as needed. 01/25 completed Not Available Not Available Not Available nitrofura ntoin monohydra te/macroc rystals 100 mg capsule TAKE 1 CAPSULE BY MOUTH TWICE DAILY 05/28 completed Not Available Not Available Not Available OneTouch UltraSoft Lancets USE DIRECTED 12/19 completed Not Available Not Available Not Available carbamaze pine ER 300 mg capsule,e xtended release [id number] r TAKE 2 CAPSULES BY MOUTH TWICE DAILY 07/01 completed Not Available Not Available Not Available aspirin TK 1T PO QD 06/21 completed Not Available Not Available Not Available multivita min TK 1T PO QD 03/22 completed Not Available Not Available Not Available hydrochlo rothiazid e 12.5 mg tablet TAKE 1 TABLET BY MOUTH DAILY active Not Available Not Available No t Available GaviLyte- G 236 gram-22.7 4 gram-6.74 gram-5.86 gram oral solution MIX UTD AND DRINK HALF AT 5PM ON 10/15/19 AND HALF AT 5AM ON 10/16/19 active Not Available Not Available No t Available OneTouch Verio test strips use to test blood glucose once daily 07/01 completed Not Available Not Available Not Available Chantix Continuin g Month Box 1 mg tablet Take 1 tablet twice a day by oral route. active per verbal order from Dr. Merida Not Available Not Available Not Available Chantix Starting Month Box 0.5 mg (11)-1 mg (42) tablets in dose pack Take 1 tablet every day by oral route in the morning for 100 days. active Not Available Not Available No t Available Vascepa 1 gram capsule Take 2 capsule( s) twice a day by oral route. 06/12 completed Not Available Not Available Not Available Spiriva Respimat 2.5 mcg/actua tion solution for inhalatio n Inhale 2 puffs every day by inhalati on route for 30 days. active Not Available Not Available No t Available Zohydro ER 10 mg capsule, oral only,exte nded release 01/27 completed Not Available Not Available Not Available Stiolto Respimat 2.5 mcg-2.5 mcg/actua tion solution for inhalatio n INL 2 PFS PO QD 06/12 completed Not Available Not Available Not Available OneTouch Verio Flex Meter USE TO TEST BLOOD GLUCOSE ONCE DAILY 07/20 completed Not Available Not Available Not Available Vitals Date Recorded Body height Body mass index (BMI) Body weight Body temperature Heart rate Systolic blood pressure Diastolic blood pressure Provider Name and Address Organization Details Last Updated DateTime 5 172.72 cm 31.2 kg/m2 96802.4 4 g 98 [degF] 120 /min 136 mm[Hg] 74 mm[Hg] Pinky Ku Jamil [facility] 5 14:41:46 Date Recorded Body height Body mass index (BMI) Body weight Body temperature Oxygen saturation Oxygen saturation in Arterial blood by Pulse oximetry Systolic blood pressure Diastolic blood pressure Provider Name and Address Organization Details Last Updated DateTime 5 172.72 cm 31.5 kg/m2 99429.6 2 g 98.2 [degF] 95 % 95 % 124 mm[Hg] 84 mm[Hg] Rosa Maria Okeefe MA [facility] 5 09:15:33 Date Recorded Heart rate Heart rate Respiratory rate Provider Name and Address Organization Details Last Updated DateTime 04/20/2024 98 /min 98 /min 14 /min Raghav Bhatt MD [address], [address], [place], [address] 04/20/2024 09:29:42 Date Recorded Body height Provider Name an d Address Organization Details Last Updated DateTime 04/20/2024 172.72 cm Octavio Philippe Jamil [facility] 04/28/2024 09:04:30 Date Recorded Body height Body mass index (BMI) Body weight Heart rate Oxygen saturation Oxygen saturation in Arterial blood by Pulse oximetry Body temperature Systolic blood pressure Diastolic blood pressure Provider Name and Address Organization Details Last Updated DateTime 5 172.72 cm 32.1 kg/m2 94322.9 9 g 81 /min 96 % 96 % 97.6 [degF] 124 mm[Hg] 80 mm[Hg] Rosa Maria Okeefe MA [facility] 5 12:46:29 Date Recorded Heart rate Respiratory rate Provider N brayden and Address Organization Details Last Updated DateTime 06/02/2024 81 /min 15 /min Raghav Bhatt MD [address], [address], [address], [place] [facility] [employer] 06/02/2024 13:04:09 Date Recorded Body height Body mass index (BMI) Body weight Body temperature Heart rate Systolic blood pressure Diastolic blood pressure Provider Name and Address Organization Details Last Updated DateTime 172.72 cm 32.2 kg/m2 88199.5 8 g 97.6 [degF] 90 /min 146 mm[Hg] 72 mm[Hg] RIKY Barber [facility] [employer] [facility] 10:49:54 Social History Question Answer Notes LastModified by Organization Details LastModified Time Tobacco Smoking Status Former Smoker quit December 2012 Not Available [employer] 05/23/2022 02:44:07 Do You Have An Advance Directive? No [id number] Information not available 05/23/2022 What Is Your Level Of Alcohol Consumption? Occasional [email or web address].030 [id number] Information not available 05/23/2022 Are You Blind Or Do You Have Difficulty Seeing? No [email or web address].030 [id number] Information not available 05/23/2022 What Is Your Level Of Caffeine Consumption? Occasional [id number] [id number] Information not available 05/23/2022 How Much Tobacco Do You Chew? None [email or web address].030 [id number] Information not available 05/23/2022 In The 14 Days Before Symptom Onset, Have You Had Close Contact With A Laboratory-confi rmed COVID-19 While That Case Was Ill? No [id number] Information not available 05/23/2022 In The 14 Days Before Symptom Onset, Have You Had Close Contact With A Person Who Is Under Investigation For COVID-19 While That Person Was Ill? No [email or web address].030 [id number] Information not available 05/23/2022 Are You Deaf Or Do You Have Serious Difficulty Hearing? No [email or web address].030 [id number] Information not available 05/23/2022 What Type Of Diet Are You Following? REGULAR [email or web address].030 [id number] Information not available 05/23/2022 Which Illicit Or Recreational Drugs Have You Used? None [email or web address].030 [id number] Information not available 05/23/2022 What Is The Highest Grade Or Level Of School You Have Completed Or The Highest Degree You Have Received? [id number] [email or web address].030 [id number] Information not available 05/23/2022 Do You Have An Electrostatic Air Filter? 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 No MIGRATION.[id number] [id number] Information not available 05/23/2022 What Is The Fluoride Status Of Your Home? Unknown [email or web address].[id number] [id number] Information not available 05/23/2022 When Did You Quit Smoking? 6-10yearssincelast cigarette [email or web address].[id number] [id number] Information not available 05/23/2022 Are There Any Guns Present In Your Home? Yes [email or web address].[id number] [id number] Information not available 05/23/2022 Do You Have A Humidifier? Yes Information not available 04/20/2024 Do You Use Insect Repellent Routinely? No [id number].[id number] [id number] Information not available 05/23/2022 Where Do You Live? [place]LevelHouse MIGRATION.0301 [id number] Information not available 05/23/2022 Do You Have A Medical Power Of Retail Sales Merchandiser? No MIGRATION.0301 [id number] Information not available 05/23/2022 Do You Have Moisture Problems In Your Home? No Information not available 04/20/2024 What Was The Date Of Your Most Recent Tobacco Screening? 06/04/2024 [email or web address] Information not available 06/04/2024 Do You Have Any Pets? No MIGRATION.[id number] [id number] Information not available 05/23/2022 What Is Your Relationship Status? MIGRATION.0301 [id number] Information not available 05/23/2022 Do You Use Your Seat Belt Or Car Seat Routinely? Yes Information not available 04/20/2024 Do You Have Smoke And Carbon Monoxide Detectors In Your Home? Yes [email or web address].0301 [id number] Information not available 05/23/2022 At What Age Did You Start Smoking Tobacco? 23 [email or web address] Information not available 05/13/2024 Are You Passively Exposed To Smoke? No MIGRATION.0301 [id number] Information not available 05/23/2022 Are There Any Smokers In Your House? No MIGRATION.0301 [id number] Information not available 05/23/2022 Do You Feel Stressed (tense, Restless, Nervous, Or Anxious, Or Unable To Sleep At Night)? [id number] [id number].0301 [id number] Information not available 05/23/2022 Do You Use Any Illicit Or Recreational Drugs? No MIGRATION.0301 [id number] Information not available 05/23/2022 Do You Use Sunscreen Routinely? Yes MIGRATION.0301 [id number] Information not available 05/23/2022 How Many Years Have You Smoked Tobacco? 40 [email or web address] Information not available 05/13/2024 Have You Recently Traveled Abroad? No MIGRATION.0301 [id number] Information not available 05/23/2022 Do You Have Any Dietary Restrictions? No MIGRATION.0301 [id number] Information not available 05/23/2022 Do You Or Have You Ever Used Any Other Forms Of Tobacco Or Nicotine? No MIGRATION.0301 [id number] Information not available 05/23/2022 Sex: Male Functional Status Question Answer Note LastModified by Organizat ion Details LastModified Time Do you have difficulty walking or climbing stairs? No [id number] Information not available 05/23/2022 Do you have transportation difficulties? No [id number] Information not available 05/23/2022 Are you able to walk? YESWOREST [id number] Information not available 05/23/2022 Do you have difficulty doing errands alone? No [id number] Information not available 05/23/2022 Are you able to care for yourself? Yes [id number] Information not available 05/23/2022 Do you have difficulty dressing or bathing? No [id number] Information not available 05/23/2022 What is your exercise level? None [id number] Information not available 05/23/2022 Mental Status Question Answer Note LastModified by Organizat ion Details LastModified Time Do you have difficulty concentrating, remembering or making decisions? No [id number] Information not available 05/23/2022 Family History Relationship Description Onset Age of this Age Resolved Age Notes LastModified by Organization Details LastModified Time Brother Hypertensive disorder [id number] Not available 05/23/2022 02:44:39 Father Malignant tumor of lung 61 [id number] Not available 05/23/2022 02:44:39 Brother Diabetes mellitus [email or web address] Not available 2023 11:52:56 Medical History Condition Response BLINDNESS N BLADDER PROBLEMS N KIDNEY STONES Y ALLERGIES/HAYFEVER Y LUNG DISEASE/DISORDER Y HEART ARRHYTHMIA N HISTORY OF DRUG ABUSE N COPD Y HIGH CHOLESTEROL / HYPERLIPIDEMIA Y HYPERTHYROIDISM N BLOOD DISEASES N BACK / NECK PROBLEMS Y BOWEL PROBLEMS N ATHEROSCLEROSIS N BENIGN PROSTATIC HYPERPLASIA N MEASLES N BREAST PROBLEMS N HYPOTENSION N OBESITY Y ANEURYSM N ADDICTION CONCERNS N ARTHRITIS N Impotence N APPENDICITIS N DIABETES, TYPE Y BAD TEETH N HEARTBURN / REFLUX N AUTISM SPECTRUM DISORDER (ASD) N HEPATITIS / LIVER DISEASE N ASTHMA N HERPES N HEADACHES/MIGRAINES N VASCULAR DISEASE Y Low Testosterone N Blood Disorder N KIDNEY DISEASE N HEART DISEASE/HEART PROBLEMS N AIDS/HIV N MALE HYPOGONADISM N HYPERTENSION Y CANCER: SPECIFY Y ANXIETY DISORDER Y BLOOD TRANSFUSION N ANEMIA/BLOOD DISORDER Y ATRIAL FIBRILLATION N BRONCHITIS N AUTOIMMUNE DISEASE N Immunizations Vaccine Type Date Status Note Provider Nam e and Address Organization Details Recorded Time SARS-COV-2 (COVID-19) vaccine, UNSPECIFIED 1 completed Pinky Ku RMA mk, [employer] [facility] [employer] 06/04/2024 10:46:42 SARS-COV-2 (COVID-19) vaccine, UNSPECIFIED 1 completed Pinky Ku RMA null, [employer] 06/04/2024 10:46:42 Influenza, high-dose, trivalent, PF 9 completed Pinky Ku RMA null, [employer] [facility] [employer] 06/04/2024 10:46:42 influenza, unspecified formulation 7 completed Not Available [facility] 08/14/2022 15:19:44 Influenza, high-dose, quadrivalent, PF 2 completed Not Available [facility] 08/14/2022 15:19:44 Influenza, high-dose, quadrivalent, PF 1 completed Not Available [facility] 08/14/2022 15:19:44 Influenza, high-dose, quadrivalent, PF 0 completed Not Available [facility] 08/14/2022 15:19:44 Pneumococcal conjugate PCV 13 9 completed Not Available [facility] 08/14/2022 15:19:44 Tdap 7 completed Not Available [facility] 08/14/2022 15:19:44 pneumococcal polysaccharide PPV23 7 completed Not Available [facility] 08/14/2022 15:19:44 COVID-19, mRNA, LNP-S, PF, 100 mcg/0.5mL dose or 50 mcg/0.25mL dose 1 completed Pinky Ku RMA null, [employer] 06/04/2024 10:46:42 COVID-19, mRNA, LNP-S, PF, 100 mcg/0.5mL dose or 50 mcg/0.25mL dose 1 completed Pinky Ku RMA null, [employer] 06/04/2024 10:46:42 Influenza, high-dose, quadrivalent, PF 3 completed Annabelle Donald MD [address], [address], [place], [address], [employer] 03/13/2023 17:27:55 Influenza, high-dose, trivalent, PF 4 completed Annabelle Donald MD [address], [address], [place], [address], [employer] 12/19/2023 13:37:45 Past Encounters Encounter ID Performer Location Encounter Start Date Encounter Closed Date Diagnosis/Indication Diagnosis SNOMED-CT Code Diagnosis ICD10 Code Diagnosis Note [id number] [facility] Internal [facility] [address] [facility] 15 [place] [address] 05/25/2020 00:00:00 08/15/2020 13:08:30 [id number] [facility] [place] [address] [place] [address] [place] [address] 08/16/2020 00:00:00 08/16/2020 16:56:51 [id number] [facility] [place] [address] [facility] 15 [place] [address] 08/25/2020 00:00:00 08/25/2020 18:47:53 [id number] [facility] [place] [address] [place] [address] Ave[address] [address] 09/01/2020 00:00:00 09/01/2020 17:55:20 [id number] [facility] Internal Med [facility] [address] [place], [place] [address]e., [address] [address] 12/06/2020 00:00:00 12/23/2020 08:14:40 [id number] [facility] Internal Med [facility] [address] [place], [place] [address]., [address] [address] 05/25/2021 00:00:00 05/25/2021 18:44:34 [id number] [facility] [address] [address] 06/21/2021 00:00:00 06/21/2021 14:47:32 [id number] [facility] [address] [address] 10/31/2021 00:00:00 10/31/2021 14:21:19 [id number] [facility] Internal [facility] [address] [place] [address], [address] [address] 01/02/2022 00:00:00 01/02/2022 16:15:39 [id number] Annabelle corrales MD [facility] Internal [facility] [place] [facility] , [facility] [place] [address] 12/19/2022 15:09:48 12/19/2022 16:55:44 Type 2 diabetes mellitus without complication 661891523 E11.9 Screening - NAD 28386227 3 Z13.9 C-scope: Dr Perry maxwell 12/01/09, should get another C-scope, needs to do this C-scope: Dr Grigsby 08/12/2020 UTD on flu shot UTD on PPV 23 01/25/17, PCV #13 06/05/2018 UTD on Tdap 02/04/17 Get a shingles vaccine UTD on COVID 19 vaccine RTC in 2 months do labs, ER if worse, he did verbalize their understand ing of the above Essential hypertension 90422808 I10 On ASAOn HCTZOn losartan Does wellDoes see HV Dr Rodriguez, last OV 02/08/[address] Abbasi today 12/18/2022 Hyperlipidemia 07325748 E78.5 On ASAOn atorvastat in 40mg dailyOn vascepa Get labs Chronic ob structive pulmonary disease 25478759 J44.[address] Shah On albuterolO n loratidine On stiolto Restless legs 88933502 G 25.81 On requipDoes well Seizure disorder 0090388 02 G40.909 On carbamazep ine ER 200mg 2 caps bidOn valproic acid No more seizures notedSeen by Kiersten Warner PA-C 10/11/2021 Colitis 67984967 K52.9 S/p D/c from [facility]/p CT A/P on 08/10/2020 Treated with levaquin and flagyl since 08/12Do well now Gastroesop hageal reflux disease without esophagitis 611990571 K21.9 On nexium as neededS/p EGD: 08/02/2020 : Dr Grigsby Obstructiv e sleep apnea syndrome 22280185 G47.33 S/p sleep study in 02/25/[address] Bhatt 10/31/2021 , f/u again Vasculitis 45753187 M31. 8 OV 09/01/2020 :S/p d/c from [facility] for advancing rash, s/p skin biopsyTrea valerie with prednisone and bactrimBio psy +ve leukocytoc lastic vasculitis , keep apt with rheumatolo gistIs to see Dr José Miguel Piedra on 11/25/2020 Get a hepatitis panel done OV 12/06/2020 :Get hepatitis panel and labs doneDoes need to see his rheumatolo gist OV 05/25/2021 :Rheumatol ogy: Dr Valdez 12/22/2020 , f.u in one year OV 12/19/2022 :Needs to keep apt with his rheumatolo gist Ex-cigarette smoker 2810 67971 Z87.891 1PPD for 40 years US AAA on 02/22/17: Neg LDCT 10/28/2020 : Next in one year Pain of bi lateral knee joints 3696454704 28441 M25.[address] Duong 04/21/2020 Treated with naprosyn Transient cerebral ischemia 111113445 G45.9 Admitted 05/21/2021 , d/c 05/24/2021 Seen by neurology Needs to get an apt with his neurologis t and cardiologi st Prostate s pecific antigen above reference range 311867592 R97.20 Needs to see urology, referral provided 12/19/2022 [id number] Annabelle corrales MD [facility] Internal Med [place] [address] [facility] [place] [address] 03/13/2023 15:23:34 03/13/2023 16:03:47 Screening - NAD 237715162 Z13.9 C-scope: Dr Perry maxwell 12/01/09, should get another C-scope, needs to do thisC-scop e: Dr Grigsby 08/12/2020 UTD on flu shotUTD on PPV 23 01/25/17, PCV #13 06/05/2018 UTD on Tdap 02/04/17Ge t a shingles vaccineUTD on COVID 19 vaccineCan do RSV vaccine RTC in 2 monthsdo labsER if worsehe did verbalize their understand ing of the above Type 2 caleb betes mellitus without complication 987958760 E11.9 On metformin 500mg bidGet labs Essential hypertension 37159800 I10 On ASAOn HCTZ 25mg dailyOn losartan 50mg daily US Carotid 02/25/2023 Stress test 02/25/2023 Dr Abbasi 02/27/2023 , next in 3 months Hyperlipidemia 11177236 E78.5 On ASAOn atorvastat in 40mg dailyOn vascepa Get labs Chronic ob structive pulmonary disease 79331037 J44.[address] Shah On albuterolO n loratidine On stiolto Restless legs 72547726 G 25.81 On requipDoes well Seizure disorder 7278362 02 G40.909 On carbamazep ine ER 200mg 2 caps bidOn valproic acid No more seizures notedSeen by Kiersten Warner PA-C 10/11/2021 Colitis 38371705 K52.9 S/p D/c from [facility]/p CT A/P on 08/10/2020 Treated with levaquin and flagyl since 08/12Does well now Gastroesop hageal reflux disease without esophagitis 012297758 K21.9 On nexium as neededS/p EGD: 08/02/2020 : Dr Grigsby Obstructiv e sleep apnea syndrome 17604145 G47.33 S/p sleep study in 02/25/[address] Bhatt 10/31/2021 , f/u again Vasculitis 40359351 M31. 8 OV 09/01/2020 :S/p d/c from [facility] for advancing rash, s/p skin biopsyTrea valerie with prednisone and bactrimBio psy +ve leukocytoc lastic vasculitis , keep apt with rheumatolo gistIs to see Dr José Miguel Piedra on 11/25/2020 Get a hepatitis panel done OV 12/06/2020 :Get hepatitis panel and labs doneDoes need to see his rheumatolo gist OV 05/25/2021 :Rheumatol ogy: Dr Valdez 12/22/2020 , f.u in one year OV 12/19/2022 :Needs to keep apt with his rheumatolo gist OV 03/13/2023 : Needs to see his rheumatolo gist Ex-cigarette smoker 2810 43007 Z87.891 1PPD for 40 years US AAA on 02/22/17: Neg LDCT 10/28/2020 : Next in one year Pain of bi lateral knee joints 4598046328 43119 M25.[address] Duong 04/21/2020 Treated with naprosyn Transient cerebral ischemia 819413966 G45.9 Admitted 05/21/2021 , d/c 05/24/2021 Seen by neurology Needs to get an apt with his neurologis t and cardiologi st Prostate s pecific antigen above reference range 124129997 R97.20 Needs to see urology, referral provided 12/19/2022 Low back pain 430148315 M54.50 Get Xrays LS SpineGet on tramadol 50mg po bid PRNMay need to see pain management if not better Addendum: 03/13/2023 :Xr LS Spine: Neg, case sent Administra tion of influenza vaccine 31395646 Z23 [id number] MAGDALENE Jay [facility] [address] 04/25/2023 11:21:27 04/25/2023 13:06:46 Pain of left shoulder joint 4365461851 3701432 M25.024 [id number] Angel Thompson DPM [facility] [place] [address] [place] [address] 04/29/2023 11:43:56 05/07/2023 13:16:08 Peripheral arterial occlusive disease 861010819 I73.9 obtain noninvasiv e vascular testing Ex-smoker 6693300 Z87.89 1 continue nonsmoking Diabetes mellitus 448566 09 E11.51 control sugars per PCP recommenda tions Foot callus 050250187 L8 4 debrided without incident Pain of left heel 389604 6505 547221 M79.672 secondary to a callusreco mmend Amlactin and use of pumice stone daily [id number] Steven Muniz MD [facility]_[address] [address] 06/17/2023 11:15:56 06/17/2023 12:13:07 Pain of left wrist 6142239896 29620 M25.532 Closed fra cture of distal end of left radius 6274158305 4372861 S52.502A [id number] Annabelle corrales MD [facility] Internal Med [facility] 15 [address] [facility], [facility] 15 [place] [address] 06/20/2023 17:12:54 06/21/2023 15:27:06 Screening - NAD 569102010 Z13.9 C-scope: Dr Perry maxwell 12/01/09, should get another C-scope, needs to do thisC-scop e: Dr Grigsby 08/12/2020 UTD on flu shotUTD on PPV 23 01/25/17, PCV #13 06/05/2018 UTD on Tdap 02/04/17Ge t a shingles vaccineUTD on COVID 19 vaccineCan do RSV vaccine RTC in 2 monthsdo labsER if worsehe did verbalize their understand ing of the above Type 2 caleb betes mellitus without complication 466718755 E11.9 On metformin 500mg bidGet labs Essential hypertension 01125244 I10 On ASANot on HCTZ 25mg dailyNot on losartan 50mg daily [place] Carotid 02/25/2023 Stress test 02/25/2023 Dr Abbasi 02/27/2023 , next in 3 months Hyperlipidemia 49558612 E78.5 On ASAOn atorvastat in 40mg dailyOff vascepa Get labs Chronic ob structive pulmonary disease 47459354 J44.[address] Shah On albuterolO n loratidine On stiolto Restless legs 78808481 G 25.81 On requipDoes well Seizure disorder 9519065 02 G40.909 On carbamazep ine ER 200mg 2 caps bidOn valproic acid No more seizures notedSeen by Kiersten Warner PA-C 10/11/2021 Colitis 50215002 K52.9 S/p D/c from [facility]/p CT A/P on 08/10/2020 Treated with levaquin and flagyl since 08/12Do well now Gastroesop hageal reflux disease without esophagitis 559869136 K21.9 On nexium as neededS/p EGD: 08/02/2020 : Dr Grigsby Obstructiv e sleep apnea syndrome 53991886 G47.33 S/p sleep study in 02/25/[address] Bhatt 10/31/2021 , f/u again Vasculitis 83263958 M31. 8 OV 09/01/2020 :S/p d[facility]c from [facility] for advancing rash, s/p skin biopsyTrea valerie with prednisone and bactrimBio psy +ve leukocytoc lastic vasculitis , keep apt with rheumatolo gistIs to see Dr José Miguel Piedra on 11/25/2020 Get a hepatitis panel done OV 12/06/2020 :Get hepatitis panel and labs doneDoes need to see his rheumatolo gist OV 05/25/2021 :Rheumatol ogy: Dr Valdez 12/22/2020 , f.u in one year OV 12/19/2022 :Needs to keep apt with his rheumatolo gist OV 03/13/2023 : Needs to see his rheumatolo gist OV 06/20/2023 : See his rheumatolo gist Ex-cigarette smoker 2810 99599 Z87.891 1PPD for 40 years US AAA on 02/22/17: Neg LDCT 10/28/2020 : Next in one year Pain of bi lateral knee joints 0624008441 87886 M25.[address] Duong 04/21/2020 Treated with naprosyn Transient cerebral ischemia 602137086 G45.9 Admitted 05/21/2021 , d/c 05/24/2021 Seen by neurology Needs to get an apt with his neurologis t and cardiologi st Prostate s pecific antigen above reference range 705510548 R97.20 Needs to see urology, referral provided 12/19/2022 Low back pain 916636229 M54.50 Get Xrays LS SpineGet on tramadol 50mg po bid PRNMay need to see pain management if not better Addendum: 03/13/2023 :Xr LS Spine: Neg, case sent Pneumonia 266031575 J18. 9 [employer] [facility] 06/16/2023 CTA chest: PneumoniaX R chest: Pneumonia L wrist fractureTr eated as CAP with augmentin and z-pack Closed fra cture of left wrist 3417480486 8716280 S62.92XA Fell off a step stoolSee Dr Sood to get surgeryNee ds cardiac clearance Moderate r ecurrent major depression 18783979 F33.1 On sertraline 50mg dailyRenew edDenies any suicidal or homicidal ideation or attempts [id number] Nesha Kang, ALMA [facility] [place] [address] [place] [address] 07/05/2023 10:17:07 07/05/2023 10:52:21 Pain of left wrist 7970145501 83644 M25.532 Closed fra cture of distal end of left radius 3842462735 0907751 S52.502A [id number] Annabelle corrales MD [facility] [place] [address] [facility], [place] [address] [place] [address] 07/23/2023 15:37:44 07/23/2023 16:13:30 Screening - NAD 324885044 Z13.9 C-scope: Dr Perry maxwell 12/01/09, should get another C-scope, needs to do thisC-scop e: Dr Grigsby 08/12/2020 UTD on flu shotUTD on PPV 23 01/25/17, PCV #13 06/05/2018 UTD on Tdap 02/04/17Ge t a shingles vaccineUTD on COVID 19 vaccineCan do RSV vaccine RTC in 3 monthsdo labsER if worsehe did verbalize their understand ing of the above Type 2 caleb betes mellitus without complication 174915528 E11.9 Not taking metformin 500mg bidA1C is stableGet labs Essential hypertension 19820536 I10 On ASANot on HCTZ 25mg dailyNot on losartan 50mg daily US Carotid 02/25/2023 Stress test 02/25/2023 Dr Abbasi 02/27/2023 , next in 3 monthsDr Elroy 06/21/2023 , f/u in 3 months Hyperlipidemia 55391644 E78.5 On ASAOn atorvastat in 40mg dailyOff vascepa Get labs Chronic ob structive pulmonary disease 09242817 J44.[address] Shah On albuterolO n loratidine On stioltoSee s Dr Bhatt 08/01/2023 Restless legs 01870179 G 25.81 On requipDoes well Seizure disorder 6303747 02 G40.909 Not on carbamazep ine ER 200mg 2 caps bidNot on valproic acid No more seizures notedSeen by Kiersten Warner PA-C 10/11/2021 Colitis 67313794 K52.9 S/p D/c from [facility]/p CT A/P on 08/10/2020 Treated with levaquin and flagyl since 08/12Do well now See case 07/17/2023 , recent bout of diarrhea, none now, get a referral to GI Gastroesop hageal reflux disease without esophagitis 552869381 K21.9 On nexium as neededS/p EGD: 08/02/2020 : Dr Grigsby Obstructiv e sleep apnea syndrome 53476466 G47.33 S/p sleep study in 02/25/[address] Bhatt 10/31/2021 , f/u again Vasculitis 74843214 M31. 8 OV 09/01/2020 :S/p d/c from [facility] for advancing rash, s/p skin biopsyTrea valerie with prednisone and bactrimBio psy +ve leukocytoc lastic vasculitis , keep apt with rheumatolo gistIs to see Dr José Miguel Piedra on 11/25/2020 Get a hepatitis panel done OV 12/06/2020 :Get hepatitis panel and labs doneDoes need to see his rheumatolo gist OV 05/25/2021 :Rheumatol ogy: Dr Valdez 12/22/2020 , f.u in one year OV 12/19/2022 :Needs to keep apt with his rheumatolo gist OV 03/13/2023 : Needs to see his rheumatolo gist OV 06/20/2023 : See his rheumatolo gist OV 07/23/2023 : Referred again Ex-cigarette smoker 2810 61682 Z87.891 1PPD for 40 years US AAA on 02/22/17: Neg LDCT 10/28/2020 : Next in one year Pain of bi lateral knee joints 6254196679 08137 M25.[address] Duong 04/21/2020 Treated with naprosyn Transient cerebral ischemia 239647756 G45.9 Admitted 05/21/2021 , d/c 05/24/2021 Seen by neurology Needs to get an apt with his cardiologi st, today 07/23/2023 states that he does not see neurology Prostate s pecific antigen above reference range 188543210 R97.20 Needs to see urology, referral provided 12/19/2022 Low back pain 270236556 M54.50 Get Xrays LS SpineGet on tramadol 50mg po bid PRNMay need to see pain management if not better Addendum: 03/13/2023 :Xr LS Spine: Neg, case sent Pneumonia 424525101 J18. 9 [employer] [facility] 06/16/2023 CTA chest: PneumoniaX R chest: Pneumonia L wrist fractureTr eated as CAP with augmentin and z-pack Closed fra cture of left wrist 7002629461 8763020 S62.92XA Fell off a step stoolSee Dr Muniz 07/05/2023 , next apt 07/29/2023 Moderate r ecurrent major depression 27934834 F33.1 On sertraline 50mg dailyRenew edDenies any suicidal or homicidal ideation or attempts [id number] Nesha Kang, [employer]GRAM[employer] [facility] [address] [place] [address] 07/29/2023 11:55:11 07/29/2023 12:07:31 Closed fracture of distal end of left radius 2240661608 1022225 S52.502A [id number] Steven Muniz MD [facility] Ortho [place] [address] [place] [address] 08/26/2023 12:15:49 08/26/2023 12:40:31 Closed fracture of left wrist 6801326151 7446683 S62.92XA [id number] Annabelle corrales MD [facility] Internal Med [facility] 15 [address] [facility], [facility] 15 [place] [address] 12/17/2023 16:26:52 12/17/2023 17:24:39 Screening - NAD 893421806 Z13.9 C-scope: Dr Perry maxwell 12/01/09, should get another C-scope, needs to do thisC-scop e: Dr Grigsby 08/12/2020 UTD on flu shotUTD on PPV 23 01/25/17, PCV #13 06/05/2018 UTD on Tdap 02/04/17Ge t a shingles vaccineUTD on COVID 19 vaccineCan do RSV vaccine RTC in 3 monthsdo labsER if worsehe did verbalize their understand ing of the aboveDiscu ssed also with his daughter Marci today 12/17/2023 Type 2 caleb betes mellitus without complication 486216658 E11.9 Not taking metformin 500mg bidA1C is stableGet labs Essential hypertension 42884479 I10 On ASANot on HCTZ 25mg dailyNot on losartan 50mg daily US Carotid 02/25/2023 Stress test 02/25/2023 Dr Abbasi 02/27/2023 , next in 3 monthsDr Elroy 06/21/2023 , f/u in 3 months On metoprolol ER 25mg daily Hyperlipidemia 58763176 E78.5 On ASAOn atorvastat in 40mg dailyOff vascepa Get labs Chronic ob structive pulmonary disease 67067252 J44.[address] Shah On albuterolO n loratidine On stioltoSee s Dr Bhatt 08/01/2023 Restless legs 02061996 G 25.81 On requipDoes well Seizure disorder 2441956 02 G40.909 Not on carbamazep ine ER 200mg 2 caps bidNot on valproic acid No more seizures notedSeen by Kiersten Warner PA-C 10/11/2021 Colitis 30846885 K52.9 S/p D/c from [facility]/p CT A/P on 08/10/2020 Treated with levaquin and flagyl since 08/12Do well now See case 07/17/2023 , recent bout of diarrhea, none now, get a referral to GI Gastroesop hageal reflux disease without esophagitis 825003423 K21.9 On nexium as neededS/p EGD: 08/02/2020 : Dr Grigsby Obstructiv e sleep apnea syndrome 61150035 G47.33 S/p sleep study in 02/25/[address] Bhatt 10/31/2021 , f/u again Vasculitis 61727687 M31. 8 OV 09/01/2020 :S/p d/c from [facility] for advancing rash, s/p skin biopsyTrea valerie with prednisone and bactrimBio psy +ve leukocytoc lastic vasculitis , keep apt with rheumatolo gistIs to see Dr José Miguel Piedra on 11/25/2020 Get a hepatitis panel done OV 12/06/2020 :Get hepatitis panel and labs doneDoes need to see his rheumatolo gist OV 05/25/2021 :Rheumatol ogy: Dr Valdez 12/22/2020 , f.u in one year OV 12/19/2022 :Needs to keep apt with his rheumatolo gist OV 03/13/2023 : Needs to see his rheumatolo gist OV 06/20/2023 : See his rheumatolo gist OV 07/23/2023 : Referred again Ex-cigarette smoker 2810 13118 Z87.891 1PPD for 40 years US AAA on 02/22/17: Neg LDCT 10/28/2020 : Next in one year Pain of bi lateral knee joints 7041782098 44672 M25.[address] Duong 04/21/2020 Treated with naprosyn Transient cerebral ischemia 514816732 G45.9 Admitted 05/21/2021 , d/c 05/24/2021 Seen by neurology Needs to get an apt with his cardiologi st, today 07/23/2023 states that he does not see neurology Prostate s pecific antigen above reference range 506787213 R97.20 Needs to see urology, referral provided 12/19/2022 Low back pain 394611644 M54.50 Get Xrays LS SpineGet on tramadol 50mg po bid PRNMay need to see pain management if not better Addendum: 03/13/2023 :Xr LS Spine: Neg, case sent Pneumonia 056664586 J18. 9 [employer] ER 06/16/2023 CTA chest: PneumoniaX R chest: Pneumonia L wrist fractureTr eated as CAP with augmentin and z-pack Closed fra cture of left wrist 4674338697 7297114 S62.92XA Fell off a step stoolSee Dr Muniz 07/05/2023 , next apt 07/29/2023 Moderate r ecurrent major depression 53207668 F33.1 On sertraline 50mg daily, renewed 12/19/2023 RenewedDen ies any suicidal or homicidal ideation or attempts Administra tion of influenza vaccine 07886638 Z23 [id number] Raghav Bhatt MD [facility] Pulmonolo gy [address] [address] 01/21/2024 16:05:21 01/22/2024 12:34:25 Obstructive sleep apnea syndrome 58324545 G47.33 Iron deficiency 78409390 E61.1 [id number] Estrada Banegas MD [facility] Urology [address], [address] [address] 01/24/2024 14:41:30 01/24/2024 15:07:23 Prostate specific antigen above reference range 806324373 R97.20 [id number] Estrada Banegas MD [facility] Urology [address] [address] 04/01/2024 10:09:23 04/01/2024 10:33:28 Benign prostatic hyperplasia with outflow obstruction 987877397 N40.1 Acute rete ntion of urine 772315900 R33.8 [id number] Annabelle corrales MD [facility] Internal Med [facility] [address] [place] [address] [address] [place] [address] 04/14/2024 14:34:40 04/14/2024 15:14:20 Screening - NAD [id number] Z13.9 C-scope: Dr Perry maxwell 12/01/09, should get another C-scope, needs to do thisC-scop e: Dr Grigsby 08/12/2020 UTD on flu shotUTD on PPV 23 01/25/17, PCV #13 06/05/2018 UTD on Tdap 02/04/17Ge t a shingles vaccineUTD on COVID 19 vaccineCan do RSV vaccine RTC in 3 monthsdo labsER if worsehe did verbalize their understand ing of the aboveDiscu ssed also with his daughter Marci today 04/14/2024 Type 2 caleb betes mellitus without complication 193510931 E11.9 Not taking metformin 500mg bidA1C is stableGet labs Essential hypertension 53152809 I10 On ASANow on HCTZ 25mg dailyNow on losartan 50mg daily US Carotid 02/25/2023 Stress test 02/25/2023 Dr Abbasi 02/27/2023 , next in 3 monthsDr Elroy 06/21/2023 , f/u in 3 months On metoprolol ER 25mg daily Hyperlipidemia 43527289 E78.5 On ASAOn atorvastat in 40mg dailyOff vascepa Get labs Chronic ob structive pulmonary disease 03835053 J44.[address] Shah On albuterolO n loratidine On stioltoSee s Dr Bhatt 08/01/2023 Restless legs 41569813 G 25.81 On requipDoes well Seizure disorder 3627189 02 G40.909 Not on carbamazep ine ER 200mg 2 caps bidNot on valproic acid No more seizures notedSeen by Kiersten Warner PA-Shelia 10/11/2021 Colitis 59852582 K52.9 S/p D[facility]p CT A/P on 08/10/2020 Treated with levaquin and flagyl since 08/12Does well now See case 07/17/2023 , recent bout of diarrhea, none now, get a referral to GI Gastroesop hageal reflux disease without esophagitis 035677482 K21.9 On nexium as neededS/p EGD: 08/02/2020 : Dr Grigsby Obstructiv e sleep apnea syndrome 05330371 G47.33 S/p sleep study in 02/25/[address] Bhatt 10/31/2021 , f/u again Vasculitis 41781316 M31. 8 OV 09/01/2020 :S/p d/c from hospital for advancing rash, s/p skin biopsyTrea valerie with prednisone and bactrimBio psy +ve leukocytoc lastic vasculitis , keep apt with rheumatolo gistIs to see Dr José Miguel Piedra on 11/25/2020 Get a hepatitis panel done OV 12/06/2020 :Get hepatitis panel and labs doneDoes need to see his rheumatolo gist OV 05/25/2021 :Rheumatol ogy: Dr Valdez 12/22/2020 , f.u in one year OV 12/19/2022 :Needs to keep apt with his rheumatolo gist OV 03/13/2023 : Needs to see his rheumatolo gist OV 06/20/2023 : See his rheumatolo gist OV 07/23/2023 : Referred again OV 04/14/2024 : Referral provided again Ex-cigarette smoker [id number] 93254 Z87.891 1PPD for 40 years US AAA on 02/22/17: Neg LDCT 10/28/2020 : Next in one year Pain of bi lateral knee joints 5216197716 77487 M25.[address] Duong 04/21/2020 Treated with naprosyn Transient cerebral ischemia 241787629 G45.9 Admitted 05/21/2021 , d/c 05/24/2021 Seen by neurology Needs to get an apt with his cardiologi st, today 07/23/2023 states that he does not see neurology Prostate s pecific antigen above reference range 207384103 R97.20 Needs to see urology, referral provided 12/19/2022 OV 04/14/2024 :S/p prostate bx 03/04/2024 On flomaxSeen in the ERDid see Dr Banegas urology, treated with cirpo 500mgHe does have an indwelling cath now, and would like a different opinion will refer to Dr Nevarez urology Low back pain 375307258 M54.50 Get Xrays LS SpineGet on tramadol 50mg po bid PRNMay need to see pain management if not better Addendum: 03/13/2023 :Xr LS Spine: Neg, case sent Pneumonia 385636132 J18. 9 Mauricio ER 06/16/2023 CTA chest: PneumoniaX R chest: Pneumonia L wrist fractureTr eated as CAP with augmentin and z-pack Closed fra cture of left wrist [id number] 6902556 S62.92XA Fell off a step stoolDid see Dr Bliss well now Moderate r ecurrent major depression 88690660 F33.1 On sertraline 50mg daily, renewed 12/19/2023 RenewedDen ies any suicidal or homicidal Ideation or attempts Liver cyst 34683211 K76. [address] A/P on 04/06/2024 , get [id number] Raghav Bhatt MD [facility] [address], [place] [address] 0 04/20/2024 09:01:19 04/20/2024 15:33:50 Obstructive sleep apnea syndrome 86138297 G47.33 Periodic l imb movement disorder 046579703 G47.61 [id number] Estrada Banegas MD [facility] [address], [address] [place] [address] 1 04/20/2024 15:15:59 04/23/2024 10:53:11 Retention of urine 405077995 R33.9 [id number] Annabelle corrales MD [facility] [address], [place] [address] 1 06/04/2024 10:36:22 06/04/2024 11:42:40 Screening - NAD 746930060 Z13.9 C-scope: Dr Perry maxwell 12/01/09, should get another C-scope, needs to do thisC-scop e: Dr Grigsby 08/12/2020 UTD on flu shotUTD on PPV 23 01/25/17, PCV #13 06/05/2018 UTD on Tdap 02/04/17Ge t a shingles vaccineUTD on COVID 19 vaccineCan do RSV vaccine RTC in 3 monthsdo labsER if worsehe did verbalize their understand ing of the aboveDiscu ssed also with his daughter Marci today 04/14/2024 Type 2 caleb betes mellitus without complication 518185779 E11.9 Not taking metformin 500mg bid will take thisAll side effects explained especially low wgawpbK9R is stableGet labsJose Gallegos 01/31/2024 Essential hypertension 68848999 I10 On ASANow on HCTZ 25mg dailyNow on losartan 50mg daily US Carotid 02/25/2023 Stress test 02/25/2023 Dr Abbasi 02/27/2023 , next in 3 monthsDr Elroy 06/21/2023 , f/u in 3 months On metoprolol ER 25mg daily Hyperlipidemia 25253299 E78.5 On ASAOn atorvastat in 40mg dailyOff vascepa Get labs Chronic ob structive pulmonary disease 10587737 J44.[address] Shah On albuterolO n loratidine On stioltoSee s Dr Bhatt 09/02/2024 Restless legs 31230777 G 25.81 On requipDoes well Seizure disorder 7564069 02 G40.909 Not on carbamazep ine ER 200mg 2 caps bidNot on valproic acid No more seizures notedSeen by Kiersten Warner PA-C 10/11/2021 Colitis 42811999 K52.9 S/p D/c from [facility]/p CT A/P on 08/10/2020 Treated with levaquin and flagyl since 08/12Do well now See case 07/17/2023 , recent bout of diarrhea, none now, get a referral to GI Gastroesop hageal reflux disease without esophagitis 488066875 K21.9 On nexium as neededS/p EGD: 08/02/2020 : Dr Grigsby Obstructiv e sleep apnea syndrome 47526209 G47.33 S/p sleep study in 02/25/2020 S/p sleep study 04/15/[address] Bhatt 10/31/2021 , f/u again Vasculitis 29439801 M31. 8 OV 09/01/2020 :S[facility]p d[facility] advancing rash, s/p skin biopsyTrea valerie with prednisone and bactrimBio psy +ve leukocytoc lastic vasculitis , keep apt with rheumatolo gistIs to see Dr José Miguel Piedra on 11/25/2020 Get a hepatitis panel done OV 12/06/2020 :Get hepatitis panel and labs doneDoes need to see his rheumatolo gist OV 05/25/2021 :Rheumatol ogy: Dr Valdez 12/22/2020 , f.u in one year OV 12/19/2022 :Needs to keep apt with his rheumatolo gist OV 03/13/2023 : Needs to see his rheumatolo gist OV 06/20/2023 : See his rheumatolo gist OV 07/23/2023 : Referred again OV 04/14/2024 : Referral provided again OV 06/04/2024 : Referred to Dr Valdez Ex-cigarette smoker [id number] 96609 Z87.891 1PPD for 40 years US AAA on 02/22/17: Neg LDCT 10/28/2020 : Next in one year Pain of bi lateral knee joints 3412238677 51787 M25.[address] Duong 04/21/2020 Treated with naprosyn Transient cerebral ischemia 987868035 G45.9 Admitted 05/21/2021 , d/c 05/24/2021 Seen by neurology Needs to get an apt with his cardiologi st, today 07/23/2023 states that he does not see neurology Prostate s pecific antigen above reference range 317465006 R97.20 Needs to see urology, referral provided 12/19/2022 OV 04/14/2024 :S/p prostate bx 03/04/2024 On flomaxSeen in the ERDid see Dr Banegas urology, treated with cirpo 500mgHe does have an indwelling cath now, and would like a different opinion will refer to Dr Nevarez urology Is to see urology Dr Onofre 06/04/2024 Low back pain 332371508 M54.50 Get Xrays LS SpineGet on tramadol 50mg po bid PRNMay need to see pain management if not better Addendum: 03/13/2023 :Xr LS Spine: Neg, case sent Pneumonia 267012993 J18. 9 Mauricio ER 06/16/2023 CTA chest: PneumoniaX R chest: Pneumonia L wrist fractureTr eated as CAP with augmentin and z-pack Closed fra cture of left wrist [id number] 2681357 S62.92XA Fell off a step stoolDid see Dr Bliss well now Moderate r ecurrent major depression 76858215 F33.1 On sertraline 50mg daily, renewed 12/19/2023 RenewedDen ies any suicidal or homicidal Ideation or attempts Liver cyst 50028318 K76. 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 Health Concerns Section Related Observation LastModified by Organization Detai ls LastModified Time None Recorded Concern Status LastModified by Organization Details LastModified Time None Recorded Advance Directives Directive N: Payers Encounter Date Sequence Insurance Name Policy Number Policy Driver Covered Member ID Driver Member ID Guarantor Name 04/14/2024 1 [place]) [facility] Humza K Almita [id number] Humza Recio 04/20/2024 1 [place] [facility] Humza K Almita [id number] Humza Recio 04/20/2024 1 [place] [facility] Humza K Almita [id number] Humza Recio 06/02/2024 1 [place] 111 Humza K Recio [id number] Humza Recio 06/04/2024 1 [place] 111 Humza K Almita [id number] Humza Recio Notes Date Note Type Note Provider Name and Address Organization Details Recorded Time 04/14/2024 text/html 02/04/17Here to establish carePast Hx:ArthritisHLDHTNCOPD Ex-smokerReviewed social family and surgical historyHere as he is having some SOB, and also some LBPNeeds to discuss above and get labsHe also wants to discuss a mole on the face and has a hx of smokingOV 04/18/17:Here for his routine apt, no new labs doing well otherwiseOV 07/25/17:Here for his routine aptHe states that he is doing well at this timeHe does not have any new labsHe states that he has not had any seizures at this time and is doing really wellOV 08/27/17:ACV:Here with sinus and nasal congestion since a week+ve cough, clear mucus no bloodNo chest painNo SOBFeels 'tired'No rashNo joint painOV 10/10/17:ACV:Now has cough and sinus drainage since a weekStill has nasal drainageNo blood in the coughCough is greenishNo fevers or chillsNo N/V or diarrheaStill feels SOB and tiredNo rashNo chest painNo headaches notedOV 06/05/18:Here for his routine aptHe states that he is doing wellHe does see [facility]No recent labsOV 01/27/19:Here for his routine aptNo recent labsFeels wellOV 06/04/2019:Here for his routine aptHe feels wellHe did do the labshas nasal drainageNo fevers or chillsNo N/V or diarrheaOV 10/01/2019:Here for his apt s/p hospitalHe states that he is stressed about his wifeHe is doing well todayNo more chest painNot suicidal or homicidalOV 10/28/2019:Here for his routine aptHe still has some chest discomfort but now c/o dizziness, he feels that the meclizine helps but no by muchHe also has noted some diarrhea, no N/V or blood in stools or urine, he claims his appetite is great, he is hydrating well and he has his c-scope already scheduled, feels that the zoloft might be causing the diarrheaOV 12/08/2019:Here for ACV:C/o dizziness since about 2-3 weeksIt is an everyday occuranceFeels that his face is 'tingly'No diplopia, or dyarthria, no UE or LE weaknessNo other N/TNo LOCNo palpitations, no chest painNo syncopeNo TURPIN or SOBOV 02/02/2020:Here for his routine aptHe feels well, states that his diarrhea is under control and no more dizzy spellsHe has no new labs since 10/27/2019He also needs to get his flu shotHe does c/o some shady knee pain, is unable to climb stairs and get up from a sitting position, needs to get these 'fixed' no swelling or trauma feels that they 'creak'Also wants to discuss his weight and get on meds for thisHe also states that he did get the c-scope but stopped the nortryptyline that Dr Grigsby prescribed him for IBSOV 05/25/2020:ACV:C/o dizzy spells again, feels that the room 'moves' when he gets up from a sitting position or if he turns his headHe denies any LOC, headaches, chest pains, N/V, weakness in the UE or LENo TURPIN or SOBHe also has noted some GERD with 'acid in the throat'No recent EGDs doneOV 08/16/2020:Here for post hosp f/uAdmitted and d/c for colitisFeels better today, appetite is better, no N/VStill has some diarrhea, clear no blood, no mucusNo BRBPRNo abdominal painNo fevers or chillsHe has also noted a rash on the shady leg, occurred after her started the levaquin and flagylOV 08/25/2020:ACV:Needs to get 2 stitches removed as he did have a [facility] biopsy done [facility]Admitted and d/c from [facility] UOV 09/01/2020:Here for his post hosp aptHe is doing wellThe rash is almost resolvedHe is to see a asic verification engineer in [facility] UHe did do the labsOV 12/06/2020:Here for his 3 month aptHe feels that he has pain in the right side of the abdomen, none nowNo nausea or vomitingAlso feels that he may have a fever, feels 'hot'He has not seen his asic verification engineer yetHe did not have any recent labsOV 05/25/2021:Here for his TCM aptPt went to the ER Saturday due to him sweating, face was getting pale, dizzy when standing up, and he felt the left side of his face droopingHe is doing well todayHe is here with his friend Kelly 01/02/2022:Here for his f/u apt, he still gets dizzy when he stands up, but no syncopal episodes noted, no chest pain or SOB noted, he did do the labs on 12/29/2021 OV 12/19/2022: Here for his f/u apt, he feels well today OV 03/13/2023: Here for his f/u apt, he is doing well OV 06/20/2023: Here for his f/u apt, he feels well today OV 07/23/2023: Here for his routine apt, he feels well today OV 12/17/2023: Here for his f/u apt, he has no new labs OV 04/14/2024: Here for his f/u apt, he is doing well today Annabelle Donald MD [address] [place] [address], [id number], [facility] [employer] 04/17/2024 11:46:57 04/20/2024 text/html Primary care/Ref erring provider: Annabelle Donald MD During the [facility] split night sleep study on 02/25/20, the patient's AHI = 31 and PLMI = 30. He was placed on Respironics medium DreamWear full face mask @ CPAP 13 cmH2O. He did not follow through with CPAP therapy and the test was invalidated after one year.During the [facility] diagnostic sleep study on 09/21/21, sleep onset = 83.5 minutes, REM onset = 284 minutes, AHI = 19, REM AHI = 39, PLMI = 38. He did not follow through with titration sleep study and the test was invalidated after one year. During the [facility] home sleep study on 01/08/23, AHI = 33, supine AHI = 61. During the [facility] diagnostic sleep study on 04/14/24, sleep onset = 24 minutes, REM onset = 102 minutes, AHI = 37, supine AHI = 52, REM AHI = 58, PLMI = 8.His workup for PLMD is significant for iron deficiency. Iron deficiency has since resolved.At home, the patient sleeps from 2:30 am to 10 am and wakes up without an alarm.Snoring: heavy, since .Snorting: yesChoking: noCoughing: noGasping: yesGagging: noSighing: yesWitnessed apnea: yesTwitching or jerking of leg(s), arm(s), body, head: yesTeeth grinding: noTeeth clenching: noSleeptalking: noSleepwalking: noSleep crying: noBedwetting: noTongue/lip/gum/cheek biting: noSleeping with open mouth: yesSleep paralysis: noHypnagogic hallucinations: noHypnopompic hallucinations: noVivid dreams: yesDifficulty with sleep onset: yesDifficulty with sleep maintenance: yesSleep interruptions: dreamsPatient wakes up with: fatigue, xerostomia, cognitive impairmentDaytime cataplexy: noMorning hypersomnolence: noAfternoon hypersomnolence: yesCaffeine sources in diet: coffee 2 cups per day, tea 1/3 glass per day, soda 20 oz per day, chocolate cupcake 2/3 per dayAssociated medical and psychiatric conditions:Congestive heart failure: noCoronary artery disease: noMyocardial infarction: noHypertension: yesStroke: noBronchial asthma: noChronic obstructive pulmonary disease: noDepression: yesBipolar disorder: noAnxiety: noPanic disorder: noPosttraumatic stress disorder: noAttention deficit and hyperactivity disorder: noObsessive Compulsive disorder: noSchizophrenia: noSchizoaffective disorder: noPersonality disorder: noChronic analgesic use: noChronic sedative/hypnotic use: noEPWORTH SLEEPINESS SCALE (ESS)CHANCE OF DOZING SCORE0 = would never doze1 = slight chance of dozing2 = moderate chance of dozing3 = high chance of dozingSITUATION AND CHANCE OF DOZINGSitting and reading - 0Watching television - 0Sitting inactive in a public place (e.g. a theater or meeting) - 0As a passenger in a car for an hour without a break - 0Lying down to rest in the afternoon when circumstances permit - 2Sitting and talking to someone - 1Sitting quietly after lunch without alcohol - 0In a car, while stopped for a few minutes in the traffic - 0TOTAL SCORE 3Subjectively, patient has a slight chance of dozing. Raghav Bhatt MD [address] [facility], [facility] [address], [place], [address], [place] - [facility] [employer] [facility] 04/20/2024 09:38:50 06/02/2024 text/html Primary care/Ref erring provider: Annabelle Donald MD During the [facility] split night sleep study on 02/25/20, the patient's AHI = 31 and PLMI = 30. He was placed on Respironics medium DreamWear full face mask @ CPAP 13 cmH2O. He did not follow through with CPAP therapy and the test was invalidated after one year.During the [facility] diagnostic sleep study on 09/21/21, sleep onset = 83.5 minutes, REM onset = 284 minutes, AHI = 19, REM AHI = 39, PLMI = 38. He did not follow through with titration sleep study and the test was invalidated after one year. During the [facility] home sleep study on 01/08/23, AHI = 33, supine AHI = 61. During the [facility] diagnostic sleep study on 04/14/24, sleep onset = 24 minutes, REM onset = 102 minutes, AHI = 37, supine AHI = 52, REM AHI = 58, PLMI = 8. During the [facility] titration sleep study on 05/27/24, sleep onset = 36.5 minutes, REM onset = 158.5 minutes, PLMI = 57. The patient uses a [employer] AirSense 11 autoset unit with heated humidification. The patient does not need the ramp to start low and go up slowly on the pressure. There is some xerostomia in a.m. There is no hose/mask condensation with water. The patient wears a [employer] [place] large Mely full face mask without chin strap. There is no claustrophobia, no nostril/nose bridge irritation, no facial rash, no facial numbness, no nosebleeding. The patient feels more refreshed upon waking and daytime alertness is improved. Energy levels are sustained for the remainder of the day.His workup for PLMD is significant for iron deficiency.At home, the patient sleeps from 2:30 am to 10 am and wakes up without an alarm.Snoring: heavy, since .Snorting: yesChoking: noCoughing: noGasping: yesGagging: noSighing: yesWitnessed apnea: yesTwitching or jerking of leg(s), arm(s), body, head: yesTeeth grinding: noTeeth clenching: noSleeptalking: noSleepwalking: noSleep crying: noBedwetting: noTongue/lip/gum/cheek biting: noSleeping with open mouth: yesSleep paralysis: noHypnagogic hallucinations: noHypnopompic hallucinations: noVivid dreams: yesDifficulty with sleep onset: yesDifficulty with sleep maintenance: yesSleep interruptions: dreamsPatient wakes up with: fatigue, xerostomia, cognitive impairmentDaytime cataplexy: noMorning hypersomnolence: noAfternoon hypersomnolence: yesCaffeine sources in diet: coffee 2 cups per day, tea 1/3 glass per day, soda 20 oz per day, chocolate cupcake 2/3 per dayAssociated medical and psychiatric conditions:Congestive heart failure: noCoronary artery disease: noMyocardial infarction: noHypertension: yesStroke: noBronchial asthma: noChronic obstructive pulmonary disease: noDepression: yesBipolar disorder: noAnxiety: noPanic disorder: noPosttraumatic stress disorder: noAttention deficit and hyperactivity disorder: noObsessive Compulsive disorder: noSchizophrenia: noSchizoaffective disorder: noPersonality disorder: noChronic analgesic use: noChronic sedative/hypnotic use: noEPWORTH SLEEPINESS SCALE (ESS)CHANCE OF DOZING SCORE0 = would never doze1 = slight chance of dozing2 = moderate chance of dozing3 = high chance of dozingSITUATION AND CHANCE OF DOZINGSitting and reading - 0Watching television - 0Sitting inactive in a public place (e.g. a theater or meeting) - 0As a passenger in a car for an hour without a break - 0Lying down to rest in the afternoon when circumstances permit - 3Sitting and talking to someone - 0Sitting quietly after lunch without alcohol - 1In a car, while stopped for a few minutes in the traffic - 0TOTAL SCORE 4Subjectively, patient has a slight chance of dozing. Raghav Bhatt MD [address], [place], [address], [place] [facility] 06/02/2024 13:08:13 06/04/2024 text/html 02/04/17Here to establish carePast Hx:ArthritisHLDHTNCOPD Ex-smokerReviewed social family and surgical historyHere as he is having some SOB, and also some LBPNeeds to discuss above and get labsHe also wants to discuss a mole on the face and has a hx of smokingOV 04/18/17:Here for his routine apt, no new labs doing well otherwiseOV 07/25/17:Here for his routine aptHe states that he is doing well at this timeHe does not have any new labsHe states that he has not had any seizures at this time and is doing really wellOV 08/27/17:ACV:Here with sinus and nasal congestion since a week+ve cough, clear mucus no bloodNo chest painNo SOBFeels 'tired'No rashNo joint painOV 10/10/17:ACV:Now has cough and sinus drainage since a weekStill has nasal drainageNo blood in the coughCough is greenishNo fevers or chillsNo N/V or diarrheaStill feels SOB and tiredNo rashNo chest painNo headaches notedOV 06/05/18:Here for his routine aptHe states that he is doing wellHe does see [facility]No recent labsOV 01/27/19:Here for his routine aptNo recent labsFeels wellOV 06/04/2019:Here for his routine aptHe feels wellHe did do the labshas nasal drainageNo fevers or chillsNo N/V or diarrheaOV 10/01/2019:Here for his apt s/p hospitalHe states that he is stressed about his wifeHe is doing well todayNo more chest painNot suicidal or homicidalOV 10/28/2019:Here for his routine aptHe still has some chest discomfort but now c/o dizziness, he feels that the meclizine helps but no by muchHe also has noted some diarrhea, no N/V or blood in stools or urine, he claims his appetite is great, he is hydrating well and he has his c-scope already scheduled, feels that the zoloft might be causing the diarrheaOV 12/08/2019:Here for ACV:C/o dizziness since about 2-3 weeksIt is an everyday occuranceFeels that his face is 'tingly'No diplopia, or dyarthria, no UE or LE weaknessNo other N/TNo LOCNo palpitations, no chest painNo syncopeNo TURPIN or SOBOV 02/02/2020:Here for his routine aptHe feels well, states that his diarrhea is under control and no more dizzy spellsHe has no new labs since 10/27/2019He also needs to get his flu shotHe does c/o some shady knee pain, is unable to climb stairs and get up from a sitting position, needs to get these 'fixed' no swelling or trauma feels that they 'creak'Also wants to discuss his weight and get on meds for thisHe also states that he did get the c-scope but stopped the nortryptyline that Dr Grigsby prescribed him for IBSOV 05/25/2020:ACV:C/o dizzy spells again, feels that the room 'moves' when he gets up from a sitting position or if he turns his headHe denies any LOC, headaches, chest pains, N/V, weakness in the UE or LENo TURPIN or SOBHe also has noted some GERD with 'acid in the throat'No recent EGDs doneOV 08/16/2020:Here for post hosp f/uAdmitted and d/c for colitisFeels better today, appetite is better, no N/VStill has some diarrhea, clear no blood, no mucusNo BRBPRNo abdominal painNo fevers or chillsHe has also noted a rash on the shady leg, occurred after her started the levaquin and flagylOV 08/25/2020:ACV:Needs to get 2 stitches removed as he [place] [facility]OV 09/01/2020:Here for his post hosp aptHe is doing wellThe rash is almost resolvedHe is to [facility] 12/06/2020:Here for his 3 month aptHe feels that he has pain in the right side of the abdomen, none nowNo nausea or vomitingAlso feels that he may have a fever, feels 'hot'He has not seen his asic verification engineer yetHe did not have any recent labsOV 05/25/2021:Here for his TCM aptPt went to the ER Saturday due to him sweating, face was getting pale, dizzy when standing up, and he felt the left side of his face droopingHe is doing well todayHe is here with his friend Kelly 01/02/2022:Here for his f/u apt, he still gets dizzy when he stands up, but no syncopal episodes noted, no chest pain or SOB noted, he did do the labs on 12/29/2021 OV 12/19/2022: Here for his f/u apt, he feels well today OV 03/13/2023: Here for his f/u apt, he is doing well OV 06/20/2023: Here for his f/u apt, he feels well today OV 07/23/2023: Here for his routine apt, he feels well today OV 12/17/2023: Here for his f/u apt, he has no new labs OV 04/14/2024: Here for his f/u apt, he is doing well today OV 06/04/2024: Here for his f/u apt, he feels well today, he did do the labs Annabelle Donald MD [address], [facility] [address], [place], [address], [place] [facility] 06/04/2024 11:57:19
--- OUTSIDE RECORDS SUMMARY | 2024-06-05 01:03 | XMS_ITS | Clinical Summary ---
Author Organization [facility] Facility Address [address] [place] [address], [place] [address] Care Team Providers Care Digital Product Specialist Name Role Phone Annabelle Donald MD Primary Care Provider [phone] Social History Tobacco Use Types Packs/Day Years [...] patient's age to complete this topic [place] [address] [place] [address] Care Teams Digital Product Specialist Relationship Specialty Start Date End Date Annabelle Donald MD [address] [facility], [address] [place] [address] PCP - General Internal Medicine 07/18/23
--- OUTSIDE RECORDS SUMMARY | 2024-06-05 01:03 | XMS_ITS | Referral Summary ---
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 Machine Operator Helper Name Role Phone Stephan Donald MD Primary Care Provide r Chong López MD Unavailable [phone] Annika Daniel RN Unavailable Unavailable Allergies No [...] attack) 05/22/2021 Primary hypertension 11/10/2020 Atherosclerosis of [place] co ronary artery without angina pectoris 11/10/2020 Petechiae 08/19/2020 Hyperlipidemia 11/08/2016 Chronic obstructive pulmonar y disease with acute exacerbation Immunizations Immunization Administration Dates Next Due Influenza, Unspecified 12/23/2020 [...] on file Legal Sex Male 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 Gender Identity Not on file Sexual Orientation Not on file Last Filed Vital Signs Vital Sign Reading Time Taken Comments Blood Pressure 138/99 05/24/2021 11:15 AM INSTRUCTIONAL TECHNOLOGY INSTRUCTOR Pulse 74 05/24/2021 11:15 AM INSTRUCTIONAL TECHNOLOGY INSTRUCTOR Temperature 36.5 C (97.7 F) 05/24/2021 11:15 AM INSTRUCTIONAL TECHNOLOGY INSTRUCTOR Respiratory Rate 18 05/24/2021 11:15 AM INSTRUCTIONAL TECHNOLOGY INSTRUCTOR Oxygen Saturation 94% 05/24/2021 11:15 AM INSTRUCTIONAL TECHNOLOGY INSTRUCTOR Inhaled Oxygen Concentration - - Weight 102.1 kg (225 lb) 05/21/2021 7:44 PM INSTRUCTIONAL TECHNOLOGY INSTRUCTOR Height 177.8 cm (5' 10 ) 05/21/2021 7:44 PM INSTRUCTIONAL TECHNOLOGY INSTRUCTOR Body Mass Index 32.28 05/21/2021 7:44 PM INSTRUCTIONAL TECHNOLOGY INSTRUCTOR Plan of Treatment Not on file Insurance Member Subscriber Plan / Payer ( fective 2013-Present) Name:Daquan Reciory Dede Relation to Subscriber:Self Name:Daquan Reciory Dede Payer ID:[id number] (NAIC) Group ID:[id number] Type:On The Bill Address: [address] [facility] Address: [address] [place] [address] MEDICARE Advance Directives For more information, please contact: [phone] * Full Code (Latest Code Status on File) Date Activated Date Inactivated Comments 05/22/2021 2:32 AM 05/24/2021 7:04 PM * Full Code Date Activated Date Inactivated Comments 08/19/2020 5:38 AM 08/24/2020 8:46 PM Care Teams Box Blank Machine Operator Helper Relationship Specialty Start Date End Date Stephan Donald MD [address] [place] [address] PCP - General 12/16/17 Chong López MD [address] [place] [address] Referring Physician Cardiology 01/01/22 Annika Daniel, sports official Failure Coordinator Transplant 04/24/23
--- OUTSIDE RECORDS SUMMARY | 2024-06-05 01:03 | XMS_ITS | Clinical Summary ---
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 11/10/2020 [...] on file Legal Sex Male 2:59 AM BOBBIN COIL WINDER Gender Identity Not on file Sexual Orientation Not on file Obstetrics History Last Filed Vital Signs Vital Sign Reading Time Taken Comments Blood Pressure 138/99 05/24/2021 11:15 AM BOBBIN COIL WINDER Pulse 74 05/24/2021 11:15 AM BOBBIN COIL WINDER Temperature 36.5 C (97.7 F) 05/24/2021 11:15 AM BOBBIN COIL WINDER Respiratory Rate 18 05/24/2021 11:15 AM BOBBIN COIL WINDER Oxygen Saturation 94% 05/24/2021 11:15 AM BOBBIN COIL WINDER Inhaled Oxygen Concentration - - Weight 102.1 kg (225 lb) 05/21/2021 7:44 PM BOBBIN COIL WINDER Height 177.8 cm (5' 10 ) 05/21/2021 7:44 PM BOBBIN COIL WINDER Body Mass Index 32.28 05/21/2021 7:44 PM BOBBIN COIL WINDER Plan of Treatment Not on file Insurance Member Subscriber Plan / Payer (Ef fective 2013-Present) Name:Humza Recio Relation to Subscriber:Self Name:Humza Recio Payer ID:[id number] (NAIC) Group ID:[id number] Type:MDSave Address: [address] MEDICARE MEDICARE Advance Directives For more information, please contact: [phone] * Full Code (Latest Code Status on File) Date Activated Date Inactivated Comments 05/22/2021 2:32 AM 05/24/2021 7:04 PM * Full Code Date Activated Date Inactivated Comments 08/19/2020 5:38 AM 08/24/2020 8:46 PM Care Teams Parking Station Attendant Relationship Specialty Start Date End Date Stephan Donald MD [address] [place] [address] PCP - General 12/16/17 Chong López MD [address] [place] [address] Referring Physician Cardiology 01/01/22 Annika Daniel, ski top trimmer Failure Coordinator Transplant 04/24/23
--- OUTSIDE RECORDS SUMMARY | 2024-06-05 01:03 | XMS_ITS | Clinical Summary ---
Author Organization [facility]ana [facility]ino Address [address] [place] [address] Care Team Providers Care Business Planner Name Role Phone Annabelle Donald MD Primary Care Provider Allergies No known active allergies Medications atorvastatin (LIPITOR) 40 mg tablet Take 80 [...] Encounters Date Type Department Care Team Description 06/01/2024 External Device Data [facility] ABSTRACTION Provider, Abstract 05/19/2024 External Device Data [facility] ABSTRACTION Provider, Abstract 04/16/2024 External Device Data [facility] ABSTRACTION Provider, Abstract [...] at Not on file Legal Sex Male 11:05 AM CDT Gender Identity Not on file Sexual Orientation Not on file Last Filed Vital Signs Vital Sign Reading Time Taken Comments Blood Pressure 125/81 08/15/2023 1:16 PM CDT Pulse 81 08/15/2023 1:16 PM CDT Temperature 36.3 C (97.4 F) 08/15/2023 1:16 PM CDT Respiratory Rate 15 08/15/2023 1:16 PM CDT [...] Flex Sig/CT Colonography Q 5 years 01/12/1997 Lung Cancer Screening 01/12/2002 ZOSTER VACCINE (1 of 2) 01/12/2002 Abdominal Aortic Aneurysm (AAA) Screening 01/12/2017 PNEUMOCOCCAL VACCINE 50+ YEARS (2 of 2 - PCV) 02/05/20 18 02/04/2017 INFLUENZA VACCINE (#1) 2023 RSV VACCINE (60+ or ) (1 - 1-dose 75+ series) 01/12/2027 DTAP/TDAP/TD VACCINES (2 - Td or Tdap) 02/04/2027 Insurance [employer]BS FEDERAL Care Teams Business Planner Relationship Specialty Start Date End Date Annabelle Donald MD PCP - General Internal Medicine 07/30/23
--- OUTSIDE RECORDS SUMMARY | 2024-06-05 01:04 | XMS_ITS | Clinical Summary ---
Author Organization [facility] [employer] Address [address] [place] [address] Care Team Providers Care Kieselguhr Regenerator Operator Name Role Phone Annabelle Donald MD Primary Care Provider Source Comments [facility],non-owned Affiliates and Associated Physician Practices is amultiple site organization consisting of ambulatory clinics and hospital sitesin [place], [place], [place] and [place]. This disclosure is being madepursuant to the Care Everywhere program and may not contain all information available regarding this patient. Last updated 17.[facility] [employer] Allergies No known active allergies Medications * [...] Immunizations Name Administration Dates Next Due INFLUENZA VACCINE 01/20/2017 PNEUMOCOCCAL PPSV23 02/04/2017 TDAP (7yrs+) 02/04/2017 [...] Comments Blood Pressure 150/86 04/01/2019 3:08 PM UNIT COORDINATOR Pulse 75 04/01/2019 3:08 PM UNIT COORDINATOR Temperature 36.8 C (98.3 F) 03/11/2018 1:56 PM UNIT COORDINATOR Respiratory Rate 16 05/06/2017 5:31 PM UNIT COORDINATOR Oxygen Saturation 100% 05/06/2017 5:31 PM UNIT COORDINATOR Inhaled Oxygen Concentration - - Weight 100.2 kg (221 lb) 04/01/2019 3:08 PM UNIT COORDINATOR Height 177.8 cm (5' 10 ) 04/01/2019 3:08 PM UNIT COORDINATOR Body Mass Index 31.71 04/01/2019 3:08 PM UNIT COORDINATOR Plan of Treatment Health Maintenance Due Date [...] 2) 01/12/2002 AAA SCREENING 01/12/2017 PNEUMOCOCCAL VACCINE 50+ (2 of 2 - PCV) 02/04/2018 02/04/2017 COVID-19 VACCINE (2023-2 5 season) 2023 INFLUENZA VACCINE (#1) 2023 , 01/22/2019, 01/20/2017 DEPRESSION SCREENING 03/25/2024 Respiratory Syncytial Virus (RSV) Vaccine Pt: or [...] patient's age to complete this topic MENINGOCOCCAL (Group B) VACCINE SHARED DECISION-MAKING Aged Out No longer eligible based on patient's age to complete this topic MENINGOCOCCAL GROUPS A/C/Y/W VACCINE Aged Out No longer eligible b ased on patient's age to complete this topic Care Teams Kieselguhr Regenerator Operator Relationship Specialty Start Date End Date Annabelle Donald MD [address] [facility] [address] [place] [address] PCP - General 03/04/18
--- OUTSIDE RECORDS SUMMARY | 2024-06-05 01:04 | XMS_ITS | Referral Summary ---
Author Organization [facility] [employer] Address [address] [facility] [place] [address] Care Team Providers Care Electrolytic Etcher Name Role Phone Annabelle Donald MD Primary Care Provider Source Comments [facility],non-owned Affiliates and Associated Physician Practices is amultiple site organization consisting of ambulatory clinics and hospital sitesin [place], [place], [place] and [place]. This disclosure is being madepursuant to the Care Everywhere program and may not contain all information available regarding this patient. Last updated 17.[facility] [employer] Allergies No known active allergies Medications * [...] Comments Blood Pressure 150/86 04/01/2019 3:08 PM TRIMMING OPERATOR Pulse 75 04/01/2019 3:08 PM TRIMMING OPERATOR Temperature 36.8 C (98.3 F) 03/11/2018 1:56 PM TRIMMING OPERATOR Respiratory Rate 16 05/06/2017 5:31 PM TRIMMING OPERATOR Oxygen Saturation 100% 05/06/2017 5:31 PM TRIMMING OPERATOR Inhaled Oxygen Concentration - - Weight 100.2 kg (221 lb) 04/01/2019 3:08 PM TRIMMING OPERATOR Height 177.8 cm (5' 10 ) 04/01/2019 3:08 PM TRIMMING OPERATOR Body Mass Index 31.71 04/01/2019 3:08 PM TRIMMING OPERATOR Plan of Treatment Not on file Care Teams Electrolytic Etcher Relationship Specialty Start Date End Date Annabelle Donald MD [address] [address] PCP - General 03/04/18
--- OUTSIDE RECORDS SUMMARY | 2024-06-05 01:04 | XMS_ITS | Continuity of Care Document ---
Author Organization [place] [facility] [employer] [facility], [facility] Internal Med [facility] 15 [address] [place] [address] Care Team Providers Care Grab Hooker Name Role Phone ANNABELLE DONALD Primary Care Provider [phone] ANNABELLE DONALD Referring Provider ESTRADA BANEGAS Urologist RAGHAV BHATT Clinical Services Consultant STEVEN MUNIZ Orthopedic Surgeon ANGEL THOMPSON Info Analyst KAMILAH ABBASI Certified Caregiver JOSE CLOUD Install And Repair Technician ORION WEBSTER Hematology/Oncology Assessment Encounter Date Assessment Date Assessment LastModified by Organization Details LastModified Time 06/04/2024 06/04/2024 12/18/2022: PSA 8.4 TSH 0.374L [...] 0.381L, FT4 1.84 Chol 203, LDL 126 [email or web address] Not available 06/04/2024 11:33:36 Plan of Treatment Reminders Order Date Submit Date Provider Last Modified By Organization Details Last Modified Time Details Appointments Any 15 2024 10:00A M Raghav Bhatt MD Not available Not available Not available Any 15 2024 11:00A M Annabelle choudhary MD Not available Not available Not available Lab microalbu min, urine [address], [address] [place], [address], 06/04/2024 14:29:27 glycohemo globin, total, blood [address], [address] [place], [address], 06/04/2024 14:29:28 CMP, serum or plasma [address], [address] [place], [address], 06/04/2024 14:29:26 CBC w/ auto diff [address], [address] [place], [address], 06/04/2024 14:29:27 lipid panel, serum [address], [address] [place], [address], 06/04/2024 14:29:27 TSH, serum or plasma [address], [address] [place], [address], 06/04/2024 14:29:27 T4, free, serum [address], [address] [place], [address], 06/04/2024 14:29:27 Referral nephrolog ist referral 2024 025 [email or web address] Candelario Mosley MD, [address] [place], [address], 06/04/2024 11:42:41 rheumatol ogist referral - Please call patient to schedule. 2024 025 [email or web address] José Miguel Piedra MD, [address] [facility], 5th Floor [facility] [place], [address], 06/04/2024 11:42:41 urologist referral - Please call patient to schedule. 2024 025 [email or web address] Arvind Kramer MD, [address] [facility], [facility] [address], [place], [address], 06/04/2024 11:42:42 podiatris t referral 2024 025 [email or web address] Angel Thompson DPM, [address] [facility], [address], [place], [address], 06/04/2024 11:42:40 cardiolog ist referral 2024 025 [email or web address] Kamilah Abbasi MD, [address] [facility], [facility] [address], [place], [address], 06/04/2024 11:42:41 Procedures None recorded. Surgeries None recorded. Imaging LDCT, chest, for lung cancer screening - Please call patient to schedule. [address] ([facility]), [address] [place], [address], 06/04/2024 12:16:20 US, liver - Please call patient to schedule. [address] ([facility]), [address] [place], [address], 06/04/2024 12:16:40 Medication Orders fluticaso ne propionat e 50 mcg/actua tion nasal spray,damaris pension 2024 025 [facility][id number], [address], [place], [place], [id number], 06/04/2024 11:34:56 Zyrtec 10 mg tablet 2024 025 [facility] #34396, [address], [place], [place], [id number], 06/04/2024 11:34:57 sertralin e 50 mg tablet 2024 025 [facility] #34148, [address], [place], [place], [id number], 06/04/2024 11:34:57 ropinirol e 0.5 mg tablet 2024 025 [facility] #45027, [address], [place], [place], [id number], 06/04/2024 11:34:56 metformin ER 500 mg tablet,ex tended release 24 hr 2024 025 [facility] #08355, [address], [place], [place], [id number], 06/04/2024 11:34:58 Patient TargetsNo targets recorded. Patient InstructionsNo instructions recorded. Reason for Referral Urologist Referral for Prost ate specific antigen above reference range Please call patient to schedule. Referring Physician: Annabelle Donald, Internal Medicine, Encounter Date: 06/04/2024 Certified Caregiver Referral for Es sential hypertension Referring Physician: Annabelle Donald Internal Medicine, Encounter Date: 06/04/2024 Info Analyst Referral for Type 2 diabetes mellitus without complication Referring Physician: Annabelle Donald, Internal Medicine, Encounter Date: 06/04/2024 Vehicle Maintenance Technician Referral for Vasculitis Please call patient to schedule. Referring Physician: Annabelle Donald Internal Medicine, Encounter Date: 06/04/2024 Lithograph Designer Referral for Pr oteinuria Referring Physician: Annabelle Donald Internal Medicine, Encounter Date: 06/04/2024 Results Created Date Observation Date Name Description Value Unit Range Abnormal Flag Note LastModifiedBy Organization Detail LastModifiedTime 06/02/19 1952 polys omnog luis alberto, titra tion study No observ ation record ed. [facility] [address] [place], [address], 06/01/2024 14:51:39 Result Notes None recorded. Problems Name Problem SNOMED Code Status Onset Date Resolution Date Notes Provider Name and Address Organization Details Recorded Time Acquired trigger finger 7244424 Active Not Available [facility] 3 02:51:11 Radial styloid tenosynov itis 36837660 Active Not Available [facility] 3 02:51:11 Sinusitis 80632171 Completed Not Available [facility] 3 02:51:12 Inguinal hernia 913250207 Active Not Available [facility] 3 02:51:12 Hyperlipi demia 16400296 Active 2021 Not Available [facility] 3 02:51:12 Diastasis recti 26652370 Active Not Available [facility] 3 02:51:12 Essential hypertens ion 07327184 Active 2022 Annabelle corrales MD [address], [address], [place], [address] , [facility] 3 16:28:43 Restless legs 97022359 Active 2022 Annabelle corrales MD [address], [address], [place], [address] , [facility] 3 16:28:56 Seizure disorder 306102569 Active 2022 Annabelle corrales MD [address], [address], [place], [address] , [facility] 3 16:29:02 Gastroeso phageal reflux disease without esophagit is 710895471 Active 2022 Annabelle corrales MD [address], [address], [place], [address] , [facility] 3 16:29:12 Obstructi ve sleep apnea syndrome 66438497 Active 2022 Annabelle corrales MD [address], [address], [place], [address] , [facility] 3 16:29:18 Transient cerebral ischemia 956658233 Active 2022 Annabelle corrales MD [address], [address], [place], [address] , [facility] 3 16:29:54 Periphera l arterial occlusive disease 177938362 Active 2023 Angel Thompson DPM [address], [address], [place], [address] , [facility] 4 12:16:14 Diabetes mellitus 27913509 Active 2023 Angel Thompson DPM [address], [address], [place], [address] , [facility] 4 12:16:55 Ex-smoker 9500930 Active 2023 Angel Thompson DPM [address], [address], [place], [address] , [facility] 4 14:07:35 Closed fracture of distal end of left radius 22585633729 365055 Active 2023 Steven Muniz MD [address], [address], [place], [address] , [facility] 4 16:22:31 Gout 03838913 Active 2023 Annabelle corrales MD [address], [address], [place], [address] , [facility] 4 17:51:19 Moderate recurrent major depressio n 33573574 Active 2023 Annabelle corrales MD [address], [address], [place], [address] , [facility] 4 17:57:49 Type 2 diabetes mellitus without complicat ion 656215302 Active 2023 Annabelle corrales MD [address], [address], [place], [address] , [facility] 4 16:57:30 Iron deficienc y 75167018 Active 2023 Raghav Bhatt MD [address], [address], [place], [address] , [facility] 4 16:35:20 Benign prostatic hyperplas ia with outflow obstructi on 048273366 Active 2024 Estrada Banegas MD [address], [address], [place], [address] , [facility] 5 10:57:59 Liver cyst 87101202 Active 2024 Annabelle corrales MD [address], [address], [place], [address] , [facility] 5 14:55:18 Periodic limb movement disorder 900922537 Active 2024 Raghav Bhatt MD [address], [address], [place], [address] , [facility] 5 09:33:04 Retention of urine 097663357 Active 2024 RIKY Noyola null, [place] [facility] 5 09:04:59 Cough 96380054 Active 2024 Rosa Maria Okeefe MA null, [place] [facility] 5 10:42:03 Nasal congestio n 30067231 Active 2024 Pinky Ku RMJamil null, [place] [facility] 5 14:01:26 Respirato ry tract congestio n and cough 645396204 Active 2024 Pinky Ku RMJamil null, [place] [facility] 5 14:02:08 Vasculiti s 16455445 Active 2024 Annabelle corrales MD [address], [address], [place], [address] , [facility] 5 15:18:24 Chronic obstructi ve pulmonary disease 23778570 Active 2024 Annabelle corrales MD [address], [address], [place], [address] , [facility] 5 11:25:13 Prostate specific antigen above reference range 964618574 Active 2024 Annabelle corrales MD [address], [address], [place], [address] , [facility] 5 11:28:02 Allergic rhinitis 40334959 Active 2024 Annabelle corrales MD [address], [address], [place], [address] , [facility] 5 11:28:42 Low back pain 269172996 Active 2024 Annabelle corrales MD [address], [address], [place], [address] , [facility] 5 11:33:13 Proteinur ia 25879711 Active 2024 Annabelle corrales MD [address], [address], [place], [address] , [facility] 5 11:33:19 Notes:Medical History: TIA G rand [...] trigger thumb Procedure History: Right inguinal herniorrhaphy 2017 Left face/chest skin ca excision 2018 Problem Notes None recorded. Procedures Surgical History Date Name Laterality Status Provider Name and Address Organization Details Recorded Time 4 Hand completed RIKY Barber [facility] 07/23/2023 15:48:55 4 Callus Debridement , One completed Angel Thompson DPM [address], [address], [place], [address], [facility] 04/29/2023 14:06:38 5 Prp i/stanford init reduc >5 yr completed Not Available [facility] 05/23/2022 02:44:34 Hernia Repair completed Not Available [facility] 05/23/2022 02:44:34 Hernia Repair completed Not Available [facility] 05/23/2022 02:44:34 Imaging Results None recorded. Procedure Notes None recorded. Medical Equipment None [...] prednisol one acetate 1 % eye drops,damaris pension SHAKE LQ AND INT 1 GTT IN [...] TABLET BY MOUTH EVERY NIGHT AT BEDTIME 2024 active Not Available Not Available Not [...] pine ER 300 mg capsule,e xtended release [id number] r TAKE 2 CAPSULES BY MOUTH TWICE [...] Details Last Updated DateTime 5 172.72 cm 32.2 kg/m2 26076.5 8 g 97.6 [degF] 90 /min 146 mm[Hg] 72 mm[Hg] RIKY Barber [place] [facility] 10:49:54 Social History Question Answer Notes LastModified by Organization Details LastModified Time Tobacco Smoking Status Former Smoker quit December 2012 Not Available [employer] 05/23/2022 02:44:07 Do You Have An Advance Directive? No MIGRATION.030 [id number] Information not available 05/23/2022 What Is Your Level Of Alcohol Consumption? Occasional MIGRATION.030 735289 Information not available 05/23/2022 Are You Blind Or Do You Have Difficulty Seeing? No MIGRATION.030 899046 Information not available 05/23/2022 What Is Your Level Of Caffeine Consumption? Occasional MIGRATION.030 935360 Information not available 05/23/2022 How Much Tobacco Do You Chew? None MIGRATION.030 613833 Information not available 05/23/2022 In The 14 Days Before Symptom Onset, Have You Had Close Contact With A Laboratory-confi rmed COVID-19 While That Case Was Ill? No MIGRATION.030 042407 Information not available 05/23/2022 In The 14 Days Before Symptom Onset, Have You Had Close Contact With A Person Who Is Under Investigation For COVID-19 While That Person Was Ill? No MIGRATION.030 005209 Information not available 05/23/2022 Are You Deaf Or Do You Have Serious Difficulty Hearing? No MIGRATION.030 127929 Information not available 05/23/2022 What Type Of Diet Are You Following? REGULAR MIGRATION.300 305410 Information not available 05/23/2022 Which Illicit Or Recreational Drugs Have You Used? None MIGRATION.030 957539 Information not available 05/23/2022 What Is The Highest Grade Or Level Of School You Have Completed Or The Highest Degree You Have Received? [id number] MIGRATION.300026 Information not available 05/23/2022 Do You Have An Electrostatic Air Filter? 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 No MIGRATION.030 014563 Information not available 05/23/2022 What Is The Fluoride Status Of Your Home? Unknown MIGRATION.300 295305 Information not available 05/23/2022 When Did You Quit Smoking? 6-10yearssincelast cigarette MIGRATION.0301 967179 Information not available 05/23/2022 Are There Any Guns Present In Your Home? Yes MIGRATION.0301 428085 Information not available 05/23/2022 Do You Have A Humidifier? Yes Information not available 04/20/2024 Do You Use Insect Repellent Routinely? No MIGRATION.0301 128109 Information not available 05/23/2022 Where Do You Live? SingleLevelHouse MIGRATION.0301 451782 Information not available 05/23/2022 Do You Have A Medical Power Of Quality Control Industrial Engineer? No MIGRATION.0301 315702 Information not available 05/23/2022 Do You Have Moisture Problems In Your Home? No Information not available 04/20/2024 What Was The Date Of Your Most Recent Tobacco Screening? 06/04/2024 [email or web address] Information not available 06/04/2024 Do You Have Any Pets? No MIGRATION.0301 582906 Information not available 05/23/2022 What Is Your Relationship Status? MIGRATION.0301 425596 Information not available 05/23/2022 Do You Use Your Seat Belt Or Car Seat Routinely? Yes Information not available 04/20/2024 Do You Have Smoke And Carbon Monoxide Detectors In Your Home? Yes MIGRATION.0301 822978 Information not available 05/23/2022 At What Age Did You Start Smoking Tobacco? 23 [email or web address] Information not available 05/13/2024 Are You Passively Exposed To Smoke? No MIGRATION.0301 [id number] Information not available 05/23/2022 Are There Any Smokers In Your House? No MIGRATION.0301 105897 Information not available 05/23/2022 Do You Feel Stressed (tense, Restless, Nervous, Or Anxious, Or Unable To Sleep At Night)? [id number] MIGRATION.0301 554848 Information not available 05/23/2022 Do You Use Any Illicit Or Recreational Drugs? No MIGRATION.0301 688530 Information not available 05/23/2022 Do You Use Sunscreen Routinely? Yes MIGRATION.0301 918265 Information not available 05/23/2022 How Many Years Have You Smoked Tobacco? 40 [email or web address] Information not available 05/13/2024 Have You Recently Traveled Abroad? No MIGRATION.0301 338674 Information not available 05/23/2022 Do You Have Any Dietary Restrictions? No MIGRATION.0301 876855 Information not available 05/23/2022 Do You Or Have You Ever Used Any Other Forms Of Tobacco Or Nicotine? No MIGRATION.0301 140547 Information not available 05/23/2022 Sex: Male Functional Status Question Answer Note LastModified by [employer] Details LastModified Time Do you have difficulty walking or climbing stairs? No MIGRATION.3587067 026 Information not available 05/23/2022 Do you have transportation difficulties? No MIGRATION.3508468 026 Information not available 05/23/2022 Are you able to walk? YESWOREST MIGRATION.4230425 026 Information not available 05/23/2022 Do you have difficulty doing errands alone? No MIGRATION.6093073 026 Information not available 05/23/2022 Are you able to care for yourself? Yes MIGRATION.8190612 026 Information not available 05/23/2022 Do you have difficulty dressing or bathing? No MIGRATION.8153509 026 Information not available 05/23/2022 What is your exercise level? None MIGRATION.9279767 026 Information not available 05/23/2022 Mental Status Question Answer Note LastModified by [employer] Details LastModified Time Do you have difficulty concentrating, remembering or making decisions? No MIGRATION.893023975 6 Information not available 05/23/2022 Family History Relationship Description Onset Age of this Age Resolved Age Notes LastModified by Organization Details LastModified Time Brother Hypertensive disorder MIGRATION.773 [id number] Not available 05/23/2022 02:44:39 Father Malignant tumor of lung 61 MIGRATION.082 6383086 Not available 05/23/2022 02:44:39 Brother Diabetes mellitus Not available 2023 11:52:56 Medical History Condition Response BLINDNESS N KIDNEY STONES Y BLADDER PROBLEMS N ALLERGIES/HAYFEVER Y HEART ARRHYTHMIA N LUNG DISEASE/DISORDER Y HISTORY OF DRUG ABUSE N COPD Y HIGH CHOLESTEROL / HYPERLIPIDEMIA Y HYPERTHYROIDISM N BLOOD DISEASES N BACK / NECK PROBLEMS Y BOWEL PROBLEMS N ATHEROSCLEROSIS N BENIGN PROSTATIC HYPERPLASIA N MEASLES N BREAST PROBLEMS N HYPOTENSION N OBESITY Y ANEURYSM N ARTHRITIS N ADDICTION CONCERNS N Impotence N APPENDICITIS N DIABETES, TYPE Y BAD TEETH N HEARTBURN / REFLUX N AUTISM SPECTRUM DISORDER (ASD) N ASTHMA N HEPATITIS / LIVER DISEASE N HERPES N HEADACHES/MIGRAINES N Low Testosterone N VASCULAR DISEASE Y Blood Disorder N AIDS/HIV N KIDNEY DISEASE N HEART DISEASE/HEART PROBLEMS N MALE HYPOGONADISM N HYPERTENSION Y CANCER: SPECIFY Y ANXIETY DISORDER Y BLOOD TRANSFUSION N ANEMIA/BLOOD DISORDER Y ATRIAL FIBRILLATION N BRONCHITIS N AUTOIMMUNE DISEASE N Immunizations Vaccine Type Date Status Note Provider Nam e and Address Organization Details Recorded Time SARS-COV-2 (COVID-19) vaccine, UNSPECIFIED 1 completed Pinky Ku RMA null, [facility] 06/04/2024 10:46:42 SARS-COV-2 (COVID-19) vaccine, UNSPECIFIED 1 completed Pinky Ku RMA null, [facility] 06/04/2024 10:46:42 Influenza, high-dose, trivalent, PF 9 completed PONCHO BarberA null, [facility] 06/04/2024 10:46:42 influenza, unspecified formulation 7 completed Not Available [facility] 08/14/2022 15:19:44 Influenza, high-dose, quadrivalent, PF 2 completed Not Available [facility] 08/14/2022 15:19:44 Influenza, high-dose, quadrivalent, PF 1 completed Not Available [facility] 08/14/2022 15:19:44 Influenza, high-dose, quadrivalent, PF 0 completed Not Available [facility] 08/14/2022 15:19:44 Pneumococcal conjugate PCV 13 9 completed Not Available [facility] 08/14/2022 15:19:44 Tdap 7 completed Not Available [facility] 08/14/2022 15:19:44 pneumococcal polysaccharide PPV23 7 completed Not Available [facility] 08/14/2022 15:19:44 COVID-19, mRNA, LNP-S, PF, 100 mcg/0.5mL dose or 50 mcg/0.25mL dose 1 completed Pinky Ku RMA null, [facility] 06/04/2024 10:46:42 COVID-19, mRNA, LNP-S, PF, 100 mcg/0.5mL dose or 50 mcg/0.25mL dose 1 completed RIKY Barber null, [facility] 06/04/2024 10:46:42 Influenza, high-dose, quadrivalent, PF 3 completed Annabelle Donald MD [address] [facility], [address], [place], [address], [facility] 03/13/2023 17:27:55 Influenza, high-dose, trivalent, PF 4 completed Annabelle Donald MD [address] [facility], [address], [place], [address], [facility] 12/19/2023 13:37:45 Past Encounters Encounter ID Performer Location Encounter Start Date Encounter Closed Date Diagnosis/Indication Diagnosis SNOMED-CT Code Diagnosis ICD10 Code Diagnosis Note [id number] Annabelle corrales MD [facility] [address] [facility], [address] [place] [address] 06/04/2024 10:36:22 06/04/2024 11:42:40 Screening - NAD 498277638 Z13.9 C-scope: Dr Perry maxwell 12/01/09, should [...] Type 2 caleb betes mellitus without complication 710804460 E11.9 Not taking metformin 500mg bid will take thisAll side effects explained especially low hcvxdyZ3L is stableGet Sonya Gallegos 01/31/2024 Essential hypertension 57348598 I10 On ASANow on HCTZ 25mg dailyNow on losartan 50mg daily US Carotid 02/25/2023 Stress test 02/25/2023 Dr Abbasi 02/27/2023 , next in 3 monthsDr Elroy 06/21/2023 , f/u in 3 months On metoprolol ER 25mg daily Hyperlipidemia 81372758 E78.5 On ASAOn atorvastat in 40mg dailyOff vascepa Get labs Chronic ob structive pulmonary disease 68037995 J44.[address] Shah On albuterolO n loratidine On stioltoSee s Dr Bhatt 09/02/2024 Restless legs 94101776 G 25.81 On requipDoes well Seizure disorder 1982912 02 G40.909 Not on carbamazep ine ER 200mg 2 caps bidNot on valproic acid No more seizures notedSeen by Kiersten Warner PA-C 10/11/2021 Colitis 47201738 K52.9 [facility]p [facility] A/P on 08/10/2020 Treated with levaquin and flagyl since 08/12Do well now See case 07/17/2023 , recent bout of diarrhea, none now, get a referral to GI Gastroesop hageal reflux disease without esophagitis 608141899 K21.9 On nexium as neededS/p EGD: 08/02/2020 : Dr Grigsby Obstructiv e sleep apnea syndrome 76326498 G47.33 S/p sleep study in 02/25/2020 S/p sleep study 04/15/[address] Bhatt 10/31/2021 , f/u again Vasculitis 13235962 M31. 8 OV 09/01/2020 :S[facility], s/p skin biopsyTrea valerie [...] Referred to Dr Valdez Ex-cigarette smoker 2810 59127 Z87.891 1PPD for 40 years US AAA on 02/22/17: Neg LDCT 10/28/2020 : Next in one year Pain of bi lateral knee joints 7517679964 07986 M25.[address] Duong 04/21/2020 Treated with naprosyn Transient cerebral ischemia 358537804 G45.9 Admitted 05/21/2021 , d/c 05/24/2021 Seen by neurology Needs to get an apt with his cardiologi st, today 07/23/2023 states that he does not see neurology Prostate s pecific antigen above reference range 898593667 R97.20 Needs to see urology, referral provided 12/19/2022 OV 04/14/2024 :S/p prostate bx 03/04/2024 On flomaxSeen in the ERDid see Dr Banegas urology, treated with cirpo 500mgHe does have an indwelling cath now, and would like a different opinion will refer to Dr Nevarez urology Is to see urology Dr Onofre 06/04/2024 Low back pain [id number] M54.50 Get Xrays LS SpineGet on tramadol 50mg po bid PRNMay need to see pain management if not better Addendum: 03/13/2023 :Xr LS Spine: Neg, case sent Pneumonia [id number] J18. 9 [facility] 06/16/2023 CTA chest: PneumoniaX R chest: Pneumonia L wrist fractureTr eated as CAP with augmentin and z-pack Closed fra cture of left wrist [id number] S62.92XA Fell off a step stoolDid see Dr Bliss well now Moderate r ecurrent major depression [id number] F33.1 On sertraline 50mg daily, renewed 12/19/2023 RenewedDen ies any suicidal or homicidal Ideation or attempts Liver cyst [id number] K76. [address] A/P on 04/06/2024 , get US Allergic rhinitis [id number] J30.9 Get on flonaseGet on zytec Proteinuria [id number] R80 .[address] Mosley [id number] Raghav Bhatt MD [facility] [address] [address] 06/02/2024 12:18:39 06/02/2024 13:08:14 Obstructive sleep apnea syndrome [id number] G47.33 Periodic l imb movement disorder [id number] G47.61 Health Concerns Section Related Observation LastModified by Organization Detai ls LastModified Time None Recorded Concern Status LastModified by Organization Details LastModified Time None Recorded Payers Encounter Date Sequence Insurance Name Policy Number Policy Driver Covered Member ID Driver Member ID Guarantor Name 06/04/2024 1 [place] [employer] [place]) 111 Humza Recio [id number] Humza Recio Notes Date Note Type Note Provider Name and Address Organization Details Recorded Time 06/04/2024 text/html 02/04/17Here to establish carePast Hx:ArthritisHLDHTNCO PDEx-smokerReviewed social family and surgical historyHere as he [...] did have a skin [facility] done [facility] UAdmitted and d/c from [facility] UOV 09/01/2020:Here for his post hosp aptHe is doing wellThe rash is almost resolvedHe is to see a nurse prn in [facility] UHe did do the labsOV 12/06/2020:Here for his 3 month aptHe feels that he has pain in the right side of the abdomen, none nowNo nausea or vomitingAlso feels that he may have a fever, feels 'hot'He has not seen his nurse prn yetHe did not have any recent labsOV [...] did do the labs Annabelle Donald MD [address] [place] [address], [place] [address], [place], [address], [place] - [facility] 06/04/2024 11:57:19
--- OUTSIDE RECORDS SUMMARY | 2024-06-05 01:04 | XMS_ITS | CONTINUITY OF CARE DOCUMENT ---
Author Name cyndi hanna Address Unknown Organization [facility] Address [address] [place] [address] Phone [phone] Care Team Providers Care Hair Dresser Name Role Phone Angelique Abbasi MD Unavailable WAGNER DONALD MD Unavailable WAGNER DONALD MD Unavailable [phone] PROBLEMS Condition Status Date Provider Notes Shortness [...] In-person encounter Office Visit Angelique Abbasi MD [facility] - In-person encounter Office Visit Angelique Abbasi MD [facility] Preop cardiovasc. examinationCardiovascular Condition Screening - In-person encounter Office Visit Angelique Abbasi MD [facility] - In-person encounter Office Visit Angelique Abbasi MD [facility] SnoringCAD - In-person encounter Office Visit Ramsey Rodriguez MD [facility] - In-person encounter Office Visit Ramsey Rodriguez MD [facility] Office Shortness of breathChest pain - pleuriticDizzinessOrthostatic hypotension - In-person encounter Office Visit Ramsey Rodriguez MD [facility] Office - In-person encounter Office Visit Ramsey Rodriguez MD [facility] Chest pain - In-person encounter Office Visit Octavio Dejesus MD [facility] - In-person encounter Office Visit Ramsey Rodriguez MD [facility] - In-person encounter Office Visit Chencho Cosby MD [facility] CADRetroperitoneal bleedingfatty liverHyperlipidemia - In-person encounter Office Visit Ramsey Rodriguez MD [facility] - In-person encounter Office Visit Ramsey Rodriguez MD [facility] ObesityTobacco use quitBack PainCOPDHypertensionSeizures VITAL SIGNS Date Observation Value Provider Body Mass Index (Ratio) 29.99 kg/m2 Gabriela Abbasi MD blood pressure, diastolic 88 mm[Hg] Rosa Lopez blood pressure, systolic 135 mm[Hg] Vip in [facility] pulse rate 90 /min [facility] respiratory rate E&M 16 /min Aaron Iraida [facility] oxygen saturation, oximetry 96 % [facility] weight E&M 209 [lb_av] [facility] blood pressure, cuff size regular iva [facility] height E&M 70 [in_i] [facility] Body Mass Index (Ratio) 30.85 kg/m2 Gabriela Abbasi MD blood pressure, diastolic 108 mm[Hg] [employer] blood pressure, systolic 171 mm[Hg] Jennifer blood pressure, cuff size regular Angel [facility] blood pressure, diastolic 108 mm[Hg] Angel [facility] blood pressure, systolic 171 mm[Hg] [facility] pulse rate 84 /min Orlin respiratory rate E&M 16 /min [facility] oxygen saturation, oximetry 94 % [facility] weight E&M 215 [lb_av] Orlin y height E&M 70 [in_i] [facility] y Body Mass Index (Ratio) 30.99 kg/m2 Christopher Iorfida blood pressure, diastolic 100 mm[Hg] Li nkLogic blood pressure, systolic 154 mm[Hg] Jennifer [employer]Logic blood pressure, cuff size regular Fa [facility] blood pressure, diastolic 100 mm[Hg] Fa [facility] blood pressure, systolic 154 mm[Hg] Jace [facility] pulse rate 73 /min Carmen Helton oxygen saturation, oximetry 95 % Carmen Otoe respiratory rate E&M 16 /min Carmen owen [...] [lb_av] Suki Mckee height E&M 70 [in_i] Skui Mckee Body Mass Index (Ratio) 33.86 kg/m2 Christopher [facility]salesSt. [facility] blood pressure, cuff size large Ke kahlil Montenegro blood pressure, diastolic 82 mm[Hg] Ke tiffanycecilio [facility] blood pressure, systolic 136 mm[Hg] Lawrence Monten[place]ro oxygen saturation, oximetry 96 % Viri Little respiratory rate E&M 16 /min Viri barakat pulse rate 75 /min Viri Mueller [facility] weight E&M 236 [lb_av] Viri Mueller [facility] height E&M 70 [in_i] Viri Mueller [facility] Body Mass Index (Ratio) 33.00 kg/m2 Christopher godinez [facility] Diastolic BP Standing #2 80 mm[Hg] Nancy jacobs [facility] Systolic BP Standing #2 132 mm[Hg] Christopher godinez [facility] blood pressure, diastolic, sitting 90 mm[ Hg] Gonzalo [facility] blood pressure, systolic, sitting 148 mm[ Hg] [facility] blood pressure, diastolic 90 mm[Hg] Júnior [...] pressure, diastolic, right arm 80 m m[Hg] Tresckow Dyer blood pressure, systolic, right arm 140 m m[Hg] Vanessa Dyer blood pressure, diastolic 80 mm[Hg] Ki [facility] blood pressure, systolic 140 mm[Hg] Kil [facility] oxygen saturation, oximetry 95 % [facility] respiratory rate E&M 18 /min [facility] pulse rate 74 /min [facility] weight E&M 217 [lb_av] [place] Dyer height E&M 70 [in_i] Vanessa Dyer [...] blood pressure, cuff size regular Ke kahlil Litlte blood pressure, diastolic 100 mm[Hg] Ke rri Monier blood pressure, systolic 170 mm[Hg] Lawrence ri [place] oxygen saturation, oximetry 95 % Viri Bustillosalekseyerwin respiratory rate E&M 18 /min Viri jamesalekseyerwin pulse rate 70 /min Viri Mueller [facility] weight E&M 220 [lb_av] Viri Mueller [...] Gonzalo Clark thyroxine, serum, free 1.08 ng/dL [facility] platelet count 221 10*3/mm3 [facility] platelet count 221 10*3/uL [facility] red blood cell distribution width 11.9 % [facility] mean corpuscular hemoglobin concentration, RBC 33.8 g/dL [facility] mean corpuscular hemoglobin, RBC 30.6 pg [facility] mean corpuscular volume, RBC 90.3 fL [facility] hematocrit, blood 45.5 % [facility] hemoglobin, blood 15.4 g/dL [facility] erythrocyte (RBC) count 5.04 10*6/mm3 [facility] leukocyte count, blood 6.8 10*3/mm3 [facility] protein, total, serum 7.4 g/dL [facility] albumin, serum 4.4 g/dL [facility] bilirubin, serum, total 0.40 mg/dL [facility] alkaline phosphatase, serum 100 1/L [facility] alanine aminotransferase (SGPT), serum 24 1/L [facility] aspartate aminotransferase (SGOT), serum 26 1/L Ramsey Rodriguez MD calcium, serum 9.9 mg/dL [facility] blood glucose, random 101 mg/dL [facility] creatinine, serum 0.83 mg/dL [facility] urea nitrogen, blood 22 mg/dL [facility] carbon dioxide, serum, total 27 mmol/L [facility] chloride, serum 104 mmol/L [facility] potassium, serum 4.0 mmol/L [facility] sodium, serum 142 mmol/L [facility] very low density lipoproteins 27.4 mg/dL [employer] 5.0 - 40.0 LDL/HDL (low-density lipoprotein/high-de nsity lipoprotein) ratio 3.[address] [facility] - lipoprotein, beta, serum, point, quantitative, calculated 140.6 (?) [employer] 0.0 - 100.0 High HDL cholesterol, serum 47.0 mg/dL [employer] 35.0 - 55.0 cholesterol, serum 215.0 mg/dL [facility] 0.0 - 200.0 High triglyceride, serum, fasting 137.0 mg/dL [employer] 0.0 - 150.0 urea nitrogen/creatinine ratio, serum 21.4 [facility] - Estimated Glomerular Filtration Rate (calc) [...] cell distribution width, size density 41.5 fL [facility] - immature granulocytes, percentage of total cells, blood 0.2 % [facility] - nucleated red blood cells as percent of blood leukocytes 0.9 % [facility] - red blood cell (erythrocyte) count, per high power field 0.1 10*3/UL [facility] - eosinophils as percent of blood leukocytes 3.6 % [facility] - neutrophils as percent of blood leukocytes 54.4 % [facility] - Absolute Neutrophils 3.6 CELLS/UL Link[employer] [...] cell distribution width, size density 40.9 fL [facility] - immature granulocytes, percentage of total cells, blood 0.5 % [facility] - nucleated red blood cells as percent of blood leukocytes 0.0 % [facility] - red blood cell (erythrocyte) count, per high power field 0.0 10*3/UL [facility] - eosinophils as percent of blood leukocytes 3.1 % [facility] - neutrophils as percent of blood leukocytes 54.4 % [facility] - Absolute Neutrophils 3.3 CELLS/UL [employer] 1.5 - 7.8 basophils as percent of blood leukocytes 0.8 % [facility] - Absolute Basophils 0.1 CELLS/UL [employer] 0.0 - 0.2 monocytes as percent of blood leukocytes 9.0 % [employer] - Absolute Monocytes 0.6 CELLS/UL [employer] 0.2 - 1.0 lymphocytes as percent of blood leukocytes 32.2 % [facility] - Absolute Lymphocytes 2.0 CELLS/UL [employer] [...] NP smoking, year quit 2016 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 Shaina Blakeri [employer]WEATER DESIGNER smoking status Former smoker Shaina Blake ri SWEATER DESIGNER smoking, year quit 2016 Carmen Alvarado ler [...] E&M revi ewed - no changes required [facility] smoking, year quit 2017 Viri Goodman enenfelder cigarette use yes Viri Hadleyrubennf [facility] smoking status Former smoker Viri Edward nfelder social history reviewed E&M revi ewed - no changes required [facility] smoking, year quit 2017 Shayla O' Sedrick cigarette use yes Shayla O'Sedrick smoking status Former smoker Shayla O'Nena l social history reviewed E&M revi ewed - no changes required [facility] smoking, year quit 2017 Katie sotelo [...] [facility] FUNCTIONAL STATUS Date Observation Value Provider HRA, CV Assess/Plan, Angina (inactive) Management Plan continue current therapy Shaina Babcock NP HRA, CV Assess/Plan, Angina (inactive) Management Plan continue current therapy Gonzalo [facility] HRA, CV Assess/Plan, Angina (inactive) Management Plan continue current therapy Gonzalo [facility] HRA, CV Assess/Plan, Angina (inactive) Management Plan continue current therapy Ramsey Rodriguez MD HRA, CV Assess/Plan, Angina (inactive) Management Plan continue current therapy Gonzalo [facility] HRA, CV Assess/Plan, Angina (inactive) Management Plan continue current therapy Ramsey Rodriguez MD HRA, CV Assess/Plan, Angina (inactive) Management Plan continue current therapy Chencho Cosby MD FAMILY HISTORY Family Member Condition Father Negative FH of Coron jose maria Artery Disease Mother Negative FH of Coron jose maria Artery Disease INSURANCE PROVIDERS Payer name Policy type / Coverage type [employer] [place] red republican ID [facility] [id number] ADVANCE DIRECTIVES Name Date DISCUSSED - NO DECISION MADE TREATMENT PLAN Date Name Performer [id number],S,R CA stenosis will check nuc stress test to see if things are worsened Angelique Abbasi MD [id number],C, B P today: 158/99 P rior BP: [...] ..... Once a day Angelique Abbasi MD [id number],C,get home slee p test Angelique Abbasi MD [id number],W,check carotid US Angelique Abbasi MD [id number],S,on valproic a tarah and carbamazepine Angelique Abbasi [...] 27, 2023 N o angina Shaina Babcock SWEATER DESIGNER Cardiology:fell down from step stool. broke left [...] E lectronically Signed By: Kerry Abbasi MD, [facility] 2 023-10-13 22:57:50 CDT C C: Angelique Abbasi MD, [facility] Angelique Abbasi MD Cardiology:CONCLUSIO NS: 1 . [...] (Quinapril hcl) ..... Once a day Gonzalo [facility] Cardiology Follow up :His updated medication list for this problem includes: Lipitor 40 Mg Oral Tablet (Atorvastatin calcium) ..... One tab. daily Gonzalo [facility] Cardiology Follow up :His dizziness has mostly [...] Tablet (Quinapril hcl) ..... Once a day [facility]iology Follow up :His dizziness has mostly resolved. He does check his BP daily and reports he has to take his Rx most days. [facility]iology Follow up :His dizziness has mostly resolved. He does check his BP daily and reports he has to take his Rx most days. Head CT showed no acute processes. [facility] Cardiology:His [facility] ed medication list for this problem includes: Lipitor 40 Mg Oral Tablet (Atorvastatin calcium) ..... One tab. daily [facility] Cardiology:The patie nt C/O dizziness. Upon [...] Tablet (Quinapril hcl) ..... One tablet daily [facility] Cardiology:No chest pain or SOB. His updated medication list for this problem includes: Accupril 20 Mg Oral Tablet (Quinapril hcl) ..... One tablet daily [facility] Cardiology:The patie nt C/O dizziness. Upon [...] Dr. Donald that head CT is indicated. [facility] Cardiology:The patie nt C/O dizziness. Upon [...] Donald that head CT is indicated. Gonzalo [facility] Cardiology:BP today: 130/84 P rior BP: 150/90 (02/11/2019) His updated medication list for this problem includes: Hydrochlorothiazide 25 Mg Oral Tablet (Hydrochlorothiazide) ..... One tab daily Quinapril 40mg Tablets (Quinapril hcl) ..... Take 1 tablet by mouth daily [facility] Cardiology:Recommend to keep LDL less than 70. CHOL: 163 (06/10/2018) LDL: 93 (06/10/2018) HDL: 49 (06/10/2018) T (06/10/2018) His updated medication list for this problem includes: Lipitor 20 Mg Oral Tablet (Atorvastatin calcium) ..... Take one pill a day [facility] Cardiology:Advised t o avoid smoking and tobbaco products. 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 Described as a knife stabbing. Worse with deep breaths and lasted about 30 min. No SOB. Resolved spontaneusely. He was admitted to [facility]. He was told WA was ruled out and echo was normal. Since discharge had some milder pain. No pain now. In 2017 cath showed mild CAD in the RCA. In 2018 was admitted to [facility] with CP and dobutamine stress echo was normal. The pain does not appear to be ischemic. Recommend to consider GI work up and try PPI. His updated medication list for this problem includes: Quinapril 40mg Tablets (Quinapril hcl) ..... 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 Described as a knife stabbing. Worse with deep breaths and lasted about 30 min. No SOB. Resolved spontaneusely. He was admitted to [facility]. He was told WA was ruled out and echo was normal. Since discharge had some milder pain. No pain now. In 2016 cath showed mild CAD in the RCA. In 2018 was admitted to [facility] with CP and dobutamine stress echo was normal. The pain does not appear to be ischemic. Recommended to consider GI work up and try PPI. If pain recurs we will consider CT chest with contrast and possibly repeat a stress test. [facility] Cardiology:CHOL: 163 (06/10/2018) HDL: 49 (06/10/2018) T (06/10/2018) LDL: 93 (06/10/2018) His updated medication list for this problem includes: Lipitor 20 Mg Oral Tablet (Atorvastatin calcium) ..... Take one pill a day [facility] Cardiology:BP is jonathan vated and we [...] daily Octavio Dejesus MD Cardiology:Weight loss advised. [facility] Cardiology:Orders: P ulmonology (*) [facility] Cardiology:CHOL: 215 .0 (11/09/2016) HDL: 47.0 (11/09/2016) T.0 (11/09/2016) LDL: 140.6 (11/09/2016) His updated medication list for this problem includes: Lipitor 20 Mg Oral Tabs (Atorvastatin calcium) ..... Take one pill a day [facility] Cardiology:BP today: 140/80 P rior BP: 150/86 (11/08/2016) His updated medication list for this problem includes: Quinapril Hcl 40 Mg Tabs (Quinapril hcl) ..... 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 [facility] Cardiology:Cardiac c ath did not show significant CAD. EF was normal. He continues to be dyspneic and I recommend pulmonary consultation. [facility] Cardiology Follow up :LARGE 10/30 AND [...] a day Carbamazepine Er 300 Mg Oral Lt22s-adu (Carbamazepine) ..... 2 pills twice a day Gonzalo [facility] Cardiology Follow up :Renal artery duplex was normal. Today we will increase Quinapril to 40mg daily. BP today: 170/100 P rior BP: 160/110 (09/26/2016) Gonzalo Eduardo Cardiology Follow up :Echo showed normal EF. ProBNP was normal. The pt is not a good candidate for a stress test or regadenosine due to dyspnea. Will schedule cardiac cath. [facility] Cardiology New Patient Gonzalo [facility] Cardiology New Patient:Mild per pulmonary. [facility] Cardiology New Patie nt:BP today: 160/110 His updated medication list for this problem includes: Quinapril Hcl 10 Mg Oral Tabs (Quinapril hcl) ..... Take two tablets daily <--- Dose increased [facility] Cardiology New Patie nt:Complaining of SOB [...] completed EKG Octavio Dejesus MD completed SNOMED-CT: [id number] Current Medications Documented Ramsey Rodriguez MD completed SNOMED-CT: [id number] [id number] Current Medications Documented Chencho Cosby MD completed SNOMED-CT: 834953233 [id number] Current Medications Documented Ramsey Rodriguez MD completed EKG Ramsey Rodrigeuz MD completed SNOMED-CT: [id number] 568379 Current Medications Documented Ramsey Rodriguez MD completed
--- OUTSIDE RECORDS SUMMARY | 2024-06-05 01:04 | XMS_ITS | Patient Health Summary ---
Author Organization [facility] Address [address] [place] [address] Care Team Providers [employer] Name Role Phone Annabelle Donald MD Primary Care Provider Note from [facility],non-owned Affiliates and Associated Physician Practices is amultiple site organization consisting of ambulatory clinics and hospital sitesin [place], [place], [place] and [place]. This disclosure is being madepursuant to the Care Everywhere program and may not contain all information available regarding this patient. Last updated 17.[facility] Allergies No known active allergies Medications [...] Problems No known active problems Immunizations * INFLUENZA VACCINE(Given 01/20/2017) * PNEUMOCOCCAL PPSV23(Given 02/04/2017) * TDAP [...] Comments Blood Pressure 150/86 04/01/2019 3:08 PM MINI BACCARAT DEALER Pulse 75 04/01/2019 3:08 PM MINI BACCARAT DEALER Temperature 36.8 C (98.3 F) 03/11/2018 1:56 PM MINI BACCARAT DEALER Respiratory Rate 16 05/06/2017 5:31 PM MINI BACCARAT DEALER Oxygen Saturation 100% 05/06/2017 5:31 PM MINI BACCARAT DEALER Inhaled Oxygen Concentration - - Weight 100.2 kg (221 lb) 04/01/2019 3:08 PM MINI BACCARAT DEALER Height 177.8 cm (5' 10 ) 04/01/2019 3:08 PM MINI BACCARAT DEALER Body Mass Index 31.71 04/01/2019 3:08 PM MINI BACCARAT DEALER Procedures * VALPROIC ACID FREE+TOTAL PANEL(Performed 04/01/2019) [...] VALPROIC ACID FREE+TOTAL PANEL (04/01/2019 4:06 PM MINI BACCARAT DEALER) Valproic Acid Free <7(L) 7 - 23 ug/mL 04/03/2019 3:17 PM MINI BACCARAT DEALER [facility] ([facility]) Valproic Acid Total 20(L) 50 - 125 ug/mL 04/03/2019 3:17 PM MINI BACCARAT DEALER [facility] ([facility]) Valproic Acid % Free Not Applicable 5 - 18 % 04/03/2019 3:17 PM MINI BACCARAT DEALER [facility] ([facility]) Comment: INTERPRETIVE INFORMATION: VPA-percent Free Valproic [...] include headache, somnolence and dizziness. Performed by [facility], [address] [place] [address] [email or web address], Rehan Zamarripa MD, Lab. Director Blood BLOOD SPECIMEN / Unknown Lab Venipuncture / Unknown 04/01/2019 4:06 PM MINI BACCARAT DEALER 04/01/2019 4:12 PM [employer]I BACCARAT DEALER Julio Aaron PERINATAL TECH-IT PROGRAMMER LAB - THERAPEU TIC DRUG MONITORING ORDERABLES [facility] ([facility]) [address] [place] [address], [facility] * CBC WITH DIFFERENTIAL (04/01/2019 4:06 PM MINI BACCARAT DEALER) Only the most recent of9 resultswithin the time period is included. WBC 7.2 3.5 - 10.5 10 3/uL 04/01/2019 4:32 PM [facility] RBC 5.04 4.30 - 5.70 10 6/uL 04/01/2019 4:32 PM [facility] Hemoglobin 15.4 13.5 - 17.5 g/dL 04/01/2019 4:32 PM [facility] Hematocrit 44.6 39.0 - 50.0 % 04/01/2019 4:32 PM [facility] MCV 88.5 81.0 - 97.0 fL 04/01/2019 4:32 PM [facility] MCH 30.6 28.0 - 34.0 pg 04/01/2019 4:32 PM [facility] MCHC 34.5 32.0 - 36.0 g/dL 04/01/2019 4:32 PM [facility] Platelet Count 222 150 - 400 10 3/uL 04/01/2019 4:32 PM [facility] RDW-SD 37.6 36.0 - 50.0 fL 04/01/2019 4:32 PM [facility] RDW-CV 11.8 11.2 - 14.8 % 04/01/2019 4:32 PM [facility] MPV 10.4 9.3 - 12.8 fL 04/01/2019 4:32 PM [facility] nRBC Absolute 0.00 0 10 3/uL 04/01/2019 4:32 PM [facility] nRBC Auto 0.0 0 /100 WBC 04/01/2019 4:32 PM [facility] Neutrophils % 57.6 35.0 - 70.0 % 04/01/2019 4:32 PM [facility] Lymphocytes % 31.2 19.7 - 55.1 % 04/01/2019 4:32 PM [facility] Monocytes % 7.6 3.0 - 15.0 % 04/01/2019 4:32 PM [facility] Eosinophils % 2.5 0.0 - 6.0 % 04/01/2019 4:32 PM [facility] Basophil % 0.8 0.0 - 1.5 % 04/01/2019 4:32 PM [facility] Neutrophils Absolute 4.2 1.6 - 7.0 10 3/uL 04/01/2019 4:32 PM [facility] Lymphocyte Absolute 2.3 0.8 - 2.9 10 3/uL 04/01/2019 4:32 PM [facility] Monocytes Absolute 0.55 0.14 - 0.66 10 3/uL 04/01/2019 4:32 PM [facility] Eosinophils Absolute 0.18 0.00 - 0.45 10 3/uL 04/01/2019 4:32 PM [facility] Basophils Absolute 0.06 0.00 - 0.06 10 3/uL 04/01/2019 4:32 PM [facility] Immature Granulocytes % 0.3 0.0 - 1.0 % 04/01/2019 4:32 PM [facility] Blood BLOOD SPECIMEN / Unknown Lab Venipuncture / Unknown 04/01/2019 4:06 PM MINI BACCARAT DEALER 04/01/2019 4:12 PM [facility] Julio Aaron PERINATAL TECH-IT PROGRAMMER LAB - HEMATOLO GY ORDERABLES [facility] [address] [phone] * (ABNORMAL) COMPREHENSIVE METABOLIC PANEL (04/01/2019 4:06 PM [facility]) Only the most recent of3 resultswithin the time period is included. BUN 12 7 - 26 mg/dL 04/01/2019 5:11 PM [facility] Creatinine 0.8 0.6 - 1.2 mg/dL 04/01/2019 5:11 PM [facility] Sodium 145 136 - 145 mmol/L 04/01/2019 5:11 PM [facility] Potassium 3.8 3.5 - 4.5 mmol/L 04/01/2019 5:11 PM [facility] Chloride 105 98 - 107 mmol/L 04/01/2019 5:11 PM [facility] CO2 29 22 - 29 mmol/L 04/01/2019 5:11 PM [facility] Glucose 95 70 - 115 mg/dL 04/01/2019 5:11 PM [facility] Calcium 9.5 8.4 - 10.2 mg/dL 04/01/2019 5:11 PM [facility] Protein Total 7.4 6.0 - 8.3 g/dL 04/01/2019 5:11 PM [facility] Albumin 3.7 3.4 - 5.0 g/dL 04/01/2019 5:11 PM [facility] Bilirubin Total 0.2 0.2 - 1.2 mg/dL 04/01/2019 5:11 PM [facility] Alkaline Phosphatase 99 40 - 150 Units/L 04/01/2019 5:11 PM [facility] ALT 20 0 - 55 Units/L 04/01/2019 5:11 PM [facility] AST 16 5 - 34 Units/L 04/01/2019 5:11 PM [facility] Anion Gap 15 8 - 18 04/01/2019 5:11 PM [facility] BUN/Creatinine Ratio 15 7 - 23 04/01/2019 5:11 PM [facility] Osmolality Calculated 300 270 - 300 mOsm/kg 04/01/2019 5:11 PM [facility] Albumin/Globulin Ratio 1.0(L) 1.1 - 2.3 04/01/2019 5:11 PM [facility] eGFR >60 >60 mL/min/1.7 3 m2 04/01/2019 5:11 PM MINI BACCARAT DEALER [facility] Blood BLOOD SPECIMEN / Unknown Lab Venipuncture / Unknown 04/01/2019 4:06 PM MINI BACCARAT DEALER 04/01/2019 4:12 PM MINI BACCARAT DEALER Julio Aaron PERINATAL TECH-IT PROGRAMMER LAB - CHEMISTR Y ORDERABLES [address] [phone] * (ABNORMAL) VALPROIC ACID LEVEL (04/01/2019 4:06 PM MINI BACCARAT DEALER) Only the most recent of5 resultswithin the time period is included. Valproic Acid Total 19(L) 50 - 100 mcg/mL 04/01/2019 5:08 PM MINI BACCARAT DEALER [facility] Blood BLOOD SPECIMEN / Unknown Lab Venipuncture / Unknown 04/01/2019 4:06 PM MINI BACCARAT DEALER 04/01/2019 4:12 PM MINI BACCARAT DEALER Julio Aaron PERINATAL TECH-IT PROGRAMMER LAB - CHEMISTR Y ORDERABLES Performing Organization Address [facility] Co de Phone Number [address] [phone] * CARBAMAZEPINE LEVEL TOTAL (04/01/2019 4:06 PM MINI BACCARAT DEALER) Only the most recent of5 resultswithin the time period is included. Carbamazepine, trough 7.9 4.0 - 12.0 mcg/mL 04/01/2019 5:11 PM MINI BACCARAT DEALER [facility] Blood BLOOD SPECIMEN / Unknown Lab Venipuncture / Unknown 04/01/2019 4:06 PM MINI BACCARAT DEALER 04/01/2019 4:12 PM MINI BACCARAT DEALER Julio Aaron PERINATAL TECH-IT PROGRAMMER LAB - CHEMISTR Y ORDERABLES Performing Organization Address City/[facility]/ZIP Co de Phone Number [address] [phone] * B-TYPE NATRIURETIC PEPTIDE (05/06/2017 9:03 AM MINI BACCARAT DEALER) BNP 78 See Comment pg/mL [facility] Comment: A decision threshold of 100 pg/mL has been demonstrated to provide the maximal combination of sensitivity, specificity and predictive value for the diagnosis of congestive heart failure (CHF). Virtually all patients with no evidence of CHF have BNP values less than 100 pg/mL. A BNP value greater than 100 pg/mL is consistent with the diagnosis of CHF in the appropriate clinical setting. In a study of 693 patients (male and female) with diagnosed CHF, the following values were determined based on the NYHA functional classification system: NYHA Functional Class Mean Valule (pg/mL) % >100 pg/mL I 320 58.1 II 432 73.0 III 656 79.0 IV 1635 98.3 Blood specimen (specimen) BLOOD SPECIMEN / Unknown 05/06/2017 9:03 AM MINI BACCARAT DEALER 05/06/2017 9:12 AM MINI BACCARAT DEALER Walter Robertson MD LAB - CHEMISTRY [facility] [address] [phone] * TSH (05/06/2017 9:03 AM MINI BACCARAT DEALER) Only the most recent of2 resultswithin the time period is included. Pathologist [facility] TSH 0.445 0.350 - 4.940 uIU/mL [facility] Blood specimen (specimen) BLOOD SPECIMEN / Unknown 05/06/2017 9:03 AM MINI BACCARAT DEALER 05/06/2017 9:12 AM MINI BACCARAT DEALER Walter Robertson MD LAB - CHEMISTRY [facility] [address] [phone] * TROPONIN I (05/06/2017 3:12 AM MINI BACCARAT DEALER) Only the most recent of3 resultswithin the time period is included. Pathologist [facility] Troponin I 0.015 <0.032 ng/mL [facility] Blood specimen (specimen) BLOOD SPECIMEN / Unknown 05/06/2017 3:12 AM MINI BACCARAT DEALER 05/06/2017 3:42 AM MINI BACCARAT DEALER Walter Robertson MD LAB - CHEMISTRY CELESTE ANGLIN Performing Organization Address [facility]/ZIP Co de Phone Number [address] [phone] * (ABNORMAL) BASIC METABOLIC PANEL (CALCIUM TOTAL) (05/06/2017 3:12 AM MINI BACCARAT DEALER) BUN 10 7 - 26 mg/dL [facility] Creatinine 0.7 0.6 - 1.2 mg/dL [facility] Sodium 144 136 - 145 mmol/L [facility] Potassium 3.6 3.5 - 4.5 mmol/L [facility] Chloride 111(H) 98 - 107 mmol/L [facility] CO2 22 22 - 29 mmol/L [facility] Glucose 113 70 - 115 mg/dL [facility] Calcium 8.3(L) 8.4 - 10.2 mg/dL [facility] Anion Gap 15 8 - 18 [facility] BUN/Creatinine Ratio 14 7 - 23 [facility] Osmolality Calculated 298 270 - 300 mOsm/kg [facility] eGFR >60 >60 mL/min/1.7 3 m2 [facility] Blood specimen (specimen) BLOOD SPECIMEN / Unknown 05/06/2017 3:12 AM MINI BACCARAT DEALER 05/06/2017 3:42 AM MINI BACCARAT DEALER Walter Robertson MD LAB - CHEMISTRY CELESTE ANGLIN Performing Organization Address City/[facility]/ZIP Co de Phone Number [address] [phone] * ECHO STRESS TEST W DOBUTAMINE (05/06/2017 12:00 AM MINI BACCARAT DEALER) Anatomical Region Laterality Modality Other 05/06/2017 Walter Robertson MD ECHOCARDIOGRAPHY RAD IANT * ECHO STRESS COLOR FLOW AND DOPPLER (05/06/2017 12:00 AM MINI BACCARAT DEALER) Anatomical Region Laterality Modality Other 05/06/2017 Walter Robertson MD ECHOCARDIOGRAPHY RAD IANT * EKG 12-LEAD (05/06/2017 12:00 AM MINI BACCARAT DEALER) Only the most recent of3 resultswithin the time period is included. EKG [facility] Comment: Exam Date/Time: May 06 2017 03:07:32 Test Reason : chest pain Blood Pressure : / mmHG Vent. Rate : 069 BPM Atrial Rate : 069 BPM P-R Int : 168 ms QRS Dur : 092 ms QT Int : 396 ms P-R-T Axes : 035 038 058 degrees QTc Int : 424 ms Normal sinus rhythm Normal ECG When compared with ECG of 05-MAY-2017 20:49, No significant change was found Confirmed by BELINDA.KATI FLORES ([id number]), research editor OLIVIA NICKERSON ([id number]) on 05/07/2017 1:26:08 PM Referred By: REFERRING NO Confirmed By:KATI COELHO 05/06/2017 Walter Robertson MD ECG ORDERABLES [facility] * GLUCOSE - POINT OF CARE (AMB) [facility] (05/05/2017 9:44 PM MINI BACCARAT DEALER) Only the most recent of2 resultswithin the time period is included. Duong Liu MD LAB - POINT OF CARE ORDERABLES Performing Organization Address City/[facility]/ZIP Co de Phone Number [facility] * GLUCOSE ACCUCHECK (05/05/2017 9:43 PM MINI BACCARAT DEALER) Glucose, Fingerstick 96 70-115mg/d L mg/dL [facility] (BEAKER) Comment:General Assembler Installer: JR TRENTON 05/05/2017 9:43 PM MINI BACCARAT DEALER Sky Llanos MD LAB - CHEMISTRY CELESTE ANGLIN [facility] (BEAKER) * CT ANGIO CHEST PULM EMBOLISM (05/05/2017 9:32 PM MINI BACCARAT DEALER) Anatomical Region Laterality Modality Chest Other Impressions 05/06/2017 9:00 AM MINI BACCARAT DEALER IMPRESSION: 1. No evidence of pulmonary embolism. [...] of retropulsion. Dictated by Husam Zhou MD (residential sales rep). I, Dr. ESTRADA SANTOS M.D. have personally reviewed and interpreted this examination/study. This report was electronically signed by ESTRADA SANTOS M.D. on 05/06/2017 9:00 AM . Narrative 05/06/2017 9:00 AM MINI BACCARAT DEALER EXAMINATION: Computed tomography (CT) of the chest [...] of retropulsion. Dictated by Husam Zhou MD (residential sales rep). I, Dr. ESTRADA SANTOS M.D. have personally reviewed and interpreted thisexamination/study. This report was electronically signed by ESTRADA SANTOS M.D. on05/06/2017 9:00 AM . Duong Liu MD CT ORDERABLES * CT HEAD WO CONTRAST (05/05/2017 6:53 PM MINI BACCARAT DEALER) Anatomical Region Laterality Modality Head Other Impressions 05/06/2017 7:27 AM MINI BACCARAT DEALER IMPRESSION: 1. No acute intracranial process. 2. Minimal mucosal thickening of the sphenoid sinus posteriorly on the right side. This report was electronically signed by BRODY WADE on 05/06/2017 7:27 AM . Narrative 05/06/2017 7:27 AM MINI BACCARAT DEALER EXAMINATION: Computed tomography (CT) of the head [...] seen. The vazquez-white matter differentiation is normal. The [...] Total 6.9 6.1 - 8.1 g/dL [facility] ([facility]) Albumin 4.2 3.6 - 5.1 g/dL [facility] ([facility]) Globulin 2.7 1.9 - 3.7 g/dL (calc) [facility] ([facility]) Albumin/Globulin Ratio 1.6 1.0 - 2.5 (calc) [facility] ([facility]) Bilirubin Total 0.5 0.2 - 1.2 mg/dL [facility] ([facility]) Bilirubin Direct 0.1 < OR = 0.2 mg/dL [facility] ([facility]) Bilirubin Indirect 0.4 0.2 - 1.2 mg/dL (calc) [facility] ([facility]) Alkaline Phosphatase 99 40 - 115 U/L [facility] ([facility]) AST 15 10 - 35 U/L [facility] (H) ALT 18 9 - 46 U/L [facility] ([facility]) Comment: Test Performed at: [facility] [place] [address] [place] [address] GRABIEL AGUIAR DO,MPH 11/22/2015 2:01 PM CDT 11/22/2015 2:02 PM CDT Julio Aaron PERINATAL TECH-IT PROGRAMMER LAB - CHEMISTR Y ORDERABLES [facility] ([facility]) * CARBAMAZEPINE FREE (11/03/2013 12:50 PM CDT) Pathologist [facility] Carbamezapine Free 1.2 1.0 - 3.0 mcg/mL [facility] ([facility]) Comment: Test Performed at: [facility] [id number] [place], [place] ROBERTO CARLOS UREÑA MD Venous blood specimen (specimen) 11/03/2013 12:50 PM CDT 11/03/2013 12:51 PM CDT Bharath Vera MD LAB - THERAPEUTIC DR REES MONITORING ORDERABLES Performing Organization Address [facility] de Phone Number [facility] ([facility]) * VALPROIC ACID LEVEL FREE (11/03/2013 12:50 PM CDT) Valproic Acid Free 8.7 4.8 - 17.3 mg/L [facility] ([facility]) Comment: Note: Non-linear drug binding properties result in the fraction of Free Valproic Acid increasing as total drug increases. The free fraction may range from 5% to 25% for the total drug range of 30-160 mg/L. Test Performed at: [facility]/[address] [id number] ROBERTO CARLOS UREÑA MD Venous blood specimen (specimen) 11/03/2013 12:50 PM CDT 11/03/2013 12:51 PM CDT Bharath Vera MD LAB - THERAPEUTIC DR REES MONITORING ORDERABLES Performing Organization Address [facility] Phone Number [facility] ([facility]) * PATHOLOGY TISSUE FOR DERMATOLOGY (12/17/2011 12:00 AM CDT) Only the most recent of2 resultswithin the time period is included. Result CASE: [id number] PATIENT: CHADD RECIO PATHOLOGIC DIAGNOSIS: Left chest: BASAL CELL CARCINOMA, INFILTRATIVE NOT PRESENT AT MARGIN DERMAL SCAR CLINICAL DATA: BCC Check margins. GROSS DESCRIPTION: Received is one formalin filled container labeled with the patient's name and designated left chest. The specimen consists of an ellipse measuring [id number] and is oriented with a suture/notch at [...] Katie Forrest M.D. Electronically signed 12/19/2011 3:40:40PM [facility] Comment: Performed at: Dermatopathology Laboratory [facility] Department of Dermatology [address] [place] [address], [address] [place] [address] Phone number: [phone] Toll Free: [phone] FAX: [phone] 12/17/2011 12/18/2011 Omero Yang LAB - PATHOLOGY/CYTO LOGY ORDERABLES Performing Organization Address [facility] Co de Phone Number [facility] LAB [address] [place] [address]. [address] Floor Lab [address] [phone] * LAB HISTORICAL RESULTS-ONBASE (05/14/2009) 05/14/2009 Historical Provider LAB - CHEMISTRY O RDERABLES Performing Organization Address City/[facility]/ZIP Co de Phone Number [facility] [employer] Executive Cloud Sales Relationship Specialty Start Date End Date Annabelle Donald MD [address] [phone] PCP - General 03/04/18
--- NOTE | 2024-06-05 08:14 | WPDHPUPDATE1 ---
History and Physical Update Update Date/Time: 06/05/24 08:14 History and Physical has been reviewed, including an updated exam of the patient. There are NO changes in the patient's condition. Risks, benefits, and alternatives have been discussed and questions answered. Patient agrees to proceed with procedure. Proceed with cystoscopy, laser of bladder calculus
--- NOTE | 2024-06-05 08:29 | WPDANESEPPF ---
Anes - Initial Pre Proc Eval Procedure: Operation Date: 06/05/24 10:00 Proposed Procedures p Cystoscopy, Laser of Bladder Stones - Arvind Kramer MD Date/Time: 06/05/24 08:29 Surgeon: Arvind Kramer MD Pre Op Diagnosis: bladder stones Patient Data Age: 74 Gender: M Height: 1.78 m Weight: 94.4 kg Allergies Allergy/AdvReac Type Severity Reaction Status Date / Time No Known Allergies Allergy Verified 06/05/24 08:09 Home Medications ?Medication ?Instructions ?Recorded ?Confirmed ?Type aspirin 81 mg tablet,delayed 81 mg PO DAILY 03/13/23 06/05/24 History release loratadine 10 mg tablet 10 mg PO DAILY 03/13/23 06/05/24 History ylscvzni-zhznchpm-rqdjr acid 400 1 tablet PO DAILY 03/13/23 06/05/24 History mcg-vit K 20 mcg-lycop 300 mcg tablet sertraline 50 mg tablet 50 mg PO DAILY 03/13/23 06/05/24 History atorvastatin 40 mg tablet 40 mg PO DAILY 03/15/24 06/05/24 History losartan 50 mg tablet 50 mg PO DAILY 03/15/24 06/05/24 History hydrochlorothiazide 12.5 mg tablet 12.5 mg PO DAILY #30 tabs 03/17/24 06/05/24 Rx tamsulosin 0.4 mg capsule 0.4 mg PO QAM 30 days #30 caps 03/17/24 06/05/24 Rx amoxicillin 500 mg-potassium 1 tablet PO Q12H 06/05/24 06/05/24 History clavulanate 125 mg tablet Laboratory Tests 06/05/24 08:15 Sodium Pending Potassium Pending Chloride Pending Carbon Dioxide Pending Anion Gap Pending BUN Pending Creatinine Pending Estim Creat Clear Calc Pending Estimated GFR Pending Glucose Pending Calcium Pending Patient hx anesthesia problems: none Family hx anesthesia problems: none Results Review: All pre-operative results and documents have been reviewed as part of the pre-operative evaluation. [facility] Past Medical History Medical History (Updated 06/05/24 @ 08:30 by Dante Roberts MD) HTN (hypertension) Stroke Seizures Migraine Diabetes COPD (chronic obstructive pulmonary disease) Arthritis Surgical History Surgical History History of hernia repair Status post surgical removal of malignant neoplasm of skin Family History Family History Father Cancer Alcoholism Mother Diabetes mellitus Sibling Alcoholism Cancer Diabetes mellitus Social History Social History Social History: Caffeine- coffee Smoking packs per day: 1 Smoking cigarettes per day: 20.0 Years smoked: 30 Smoking pack-years: 30.00 Smoking status: Former smoker Smoking end date: 03/25/16 Additional smoking assessment comments: quit years ago Alcohol intake: never Substance use: never Substance use type: does not use Do You Feel Safe in your Home?: Yes Lack of Transportation: No Lack of Food: Never True Current Housing: I Have Housing Concerned About Future Housing: No Difficulty Paying Gas/Electric Bills: No Difficulty Paying for Meds: No Currently Unemployed: No Education: High School Diploma/GED Difficulty w/ Childcare or Family Care: No Living arrangements: alone Occupation/Education: retired Gender identity (if verbalized by the patient): Male Spiritual care concerns: No Agree to blood products: Yes Anes - Eval Final PreProcedure Day of Procedure 06/05/24 08:29 Patient weight: obese Heart: regular rate and rhythm Lungs: clear to auscultation Airway: Mallampati scale class II Neurological: alert and oriented Last oral intake: >/= 8 hours ASA classification: III Emergent: no Anesthetic plan: proceed Anesthesia type and monitoring: general LMA and standard monitoring Results Review: All pre-operative results and documents have been reviewed as part of the pre-operative evaluation. Informed Consent: The patient's anesthetic plan and its attendant risks and benefits were discussed with the patient/family/POA. Questions were solicited and answers provided to the satisfaction of the patient/family/POA.
[2024-06-05 08:36] LABS: Anion Gap 9 mmol/L (4-12); Blood Urea Nitrogen 16 mg/dL (9-20); Calcium 9.3 mg/dL (8.4-10.2); Carbon Dioxide 23 mmol/L (22-30); Chloride 108 mmol/L (98-107); Estimated CRCL calculation 75 ml/min; Estimated Glomerular Filt Rate > 60; Glucose 105 mg/dL (65-110); Potassium 4.2 mmol/L (3.4-5.0); Sodium 140 mmol/L (137-145)
[2024-06-05] MEDS: ceFAZolin 2 GM/D5W 50 ML 2 GM/50 ML BAG IVPB (09:29)
[2024-06-05] MEDS: LIDOCAINE 2% GEL UROJET 10 ML PKG MUCOUS MEM (10:06)
--- NOTE | 2024-06-05 10:22 | P.OP_ITS ---
Procedure Note - Detailed Date of Procedure 06/05/24 Pre-op Diagnosis bladder stones Post-op Diagnosis Same Procedure Performed Cystoscopy with holmium laser of 2 large bladder stones, fulguration of bladder neck Surgeon Arvind Kramer MD Anesthesia General Description of Procedure Patient was taken to the operative suite correctly identified. Once anesthesia was obtained was placed in dorsal lithotomy position and prepped draped usual sterile fashion. Twenty-two Persian scope was inserted the bladder direct vision. He does have some lateral lobe hypertrophy with a slightly elevated median bar. Upon entering the bladder there was to 3+ trabeculation with some diverticuli. He was noted to have actually 2 stones. Each measured about a cm and a half. There was 1 that was lodged in a trabeculated area. Using the 500 micron fiber we lasered the stones every retrieved all the pieces. The bladder neck was oozing slightly and thus we fulgurated it using a TUR loop. There was good hemostasis at termination of procedure. 2% viscous lidocaine was inserted into the urethra patient is taken recovery stable condition. He will be discharged home with follow-up in 2-3 weeks time. This completes dictation. Please send a copy of op note to my office Estimated Blood Loss 5 Drains No Packing No Pathology Yes Complications No immediate complications Condition Stable Disposition PACU
[2024-06-05] MEDS: LACTATED RINGERS 1,000 ML 30 ML IV CONT ×2 (10:25→10:41)
== END 2024-06-05 12:15 | disposition home or self-care (01) ==
PROVIDERS: Anesthesiology; PCP Internal Medicine; Visit Provider Urology
PROC: 0TCB8ZZ Extirpation of Matter from Bladder, Via Natural or Artificial Opening Endoscopic (ICD-10-PCS; CPT 52352; principal; 2024-06-05 10:00)
DX: N21.0 Calculus in bladder (principal); N40.1 Benign prostatic hyperplasia with lower urinary tract symptoms; R33.9 Retention of urine, unspecified; R35.0 Frequency of micturition; I10 Essential (primary) hypertension; R56.9 Unspecified convulsions; E11.9 Type 2 diabetes mellitus without complications; J44.9 Chronic obstructive pulmonary disease, unspecified; M19.90 Unspecified osteoarthritis, unspecified site; E66.9 Obesity, unspecified; Z68.29 Body mass index [BMI] 29.0-29.9, adult; Z79.82 Long term (current) use of aspirin; Z98.890 Other specified postprocedural states; Z87.891 Personal history of nicotine dependence; Z85.828 Personal history of other malignant neoplasm of skin; Z86.73 Personal history of transient ischemic attack (TIA), and cerebral infarction without residual deficits; Z80.9 Family history of malignant neoplasm, unspecified
CPT/HCPCS: 52214; 52318; 36415; 80048; 82365; 88300; C1758; J0690; J2003; J2371; J2405; J2704; J3010; J7120